=== PATIENT | male | born 1950 | race Caucasian/White ===

== ENCOUNTER 2016-07-31 10:44 | Emergency (ER) | payer OTHER, MEDICARE ==
[~2016-07-31] VITALS: Ht 185.4 cm; Wt 95.3 kg
[~2016-07-31 10:44] MED LIST: COLACE100 MG PO; COUMADIN 1 MG TA1 MG PO; COUMADIN 5 MG TA5 MG PO; COUMADIN 7.5 M7.5 MG PO; DULCOLAX10 MG PR; FAMOTIDINE20 MG PO; FLOMAX(MONOGRA0.4 MG PO; KEPPRA 500MG T500 MG PO; LACTULOSE10 GM/15 M PO; LEVOTHYROXIN0.025 MG PO; LEVOTHYROXIN0.125 MG PO; LISINOPRIL40 MG PO; MIRALAX17 GM PO; MULTIVITAMIN1 TAB PO; NORVASC 2.5 MG2.5 MG PO; PERCOCET 325 MG1 TA2 PO; RAPAFLO8 MG PO; SENNA CON/DOCUS1 TAB PO; SENNA8.6 M1 PO; SIMVASTATIN20 MG PO
--- NOTE | 2016-07-31 10:59 | ED GI/GU/ABDOMINAL COMPLAINT ---
History of Present Illness General Chief Complaint: Male Genitourinary Problems Stated Complaint: BIBA UTI Source: patient Exam Limitations: no limitations Vital Signs & Intake/Output Vital Signs & Intake/Output Vital Signs Date Time Temp Pulse Resp B/P Pulse O2 O2 Flow FiO2 Ox Delivery Rate 07/31 1101 96.2 78 18 127/87 98 Room Air Allergies Coded Allergies: MDX - Contrast Media, Gadolinium Re (Contrast Media, Gadolinium Related) ( UNKNOWN REACTION TO CATSCAN DYE 11/13/12) MDX - Contrast Media, Iodine Relate (Contrast Media, Iodine Related) (UNKNOWN REACTION TO CATSCAN DYE 11/13/12) MDX - Contrast Media, Iron Related (Contrast Media, Iron Related) (UNKNOWN REACTION TO CATSCAN DYE 11/13/12) MDX - Contrast Media, Perfluorocarb (Contrast Media, Perfluorocarbon Rel) ( UNKNOWN REACTION TO CATSCAN DYE 11/13/12) MDX - PCN (penicillin) (PCN (PENICILLIN)) (UNKNOWN 01/11/13) Uncoded Allergies: EYE OINT (W-10 DID NOT SPECIFY 03/23/14) Reconcile Medications Amlodipine (Norvasc 2.5 MG Tab) 2.5 MG TABLET 1 TAB PO DAILY HEART (Reported) Bisacodyl (Dulcolax) 10 MG SUP 1 SUPP MT PRN CONSTIPATION (Reported) Docusate Sodium (Colace) 100 MG CAPSULE 1 CAP PO DAILY STOOL SOFTENER ( Reported) Famotidine 20 MG TABLET 1 TAB PO DAILY GI (Reported) Lactulose 10 GRAM/15 ML SOLUTION 30 ML PO 1700 CONSTIPATION (Reported) Levetiracetam (Keppra 500MG Tab) 500 MG TABLET 500 MG PO BID seizures Levothyroxine Sodium 125 MCG TABLET 1 TAB PO DAILY hypothyroidism (Reported) Polyethylene Glycol 3350 (Miralax) 17 GRAM/DOSE POWDER 1 PAC PO DAILY CONSTIPATION Reason to Stop at ADM: NPO Sennosides (Senna) 8.6 MG TABLET 2 TAB PO QHS CONSTIPATION (Reported) Simvastatin (Zocor) 20 MG TAB 1 TAB PO QPM CHOLESTEROL (Reported) Tamsulosin Hydrochloride (Flomax) 0.4 MG CAP.ER.24H 2 CAP PO DAILY PROSTATE ( Reported) Warfarin Sodium (Coumadin) 1 MG TABLET 5.5 MG PO DAILY BLOOD THINNER ( Reported) 7.5 MG GIVEN 03/25/14 AT 1700 Triage Nurses Notes Reviewed? yes HPI: Patient presents for evaluation of urinary hesitancy and frequency and occasional incontinence, intermittently for the past 2 weeks. Patient has a known history of prostate enlargement but states he does not take medication for this. He denies any associated fever, cold symptoms or pain. He states that he feels the need to urinate but can't. Past History Travel History Traveled to [place] past 21 day No Medical History Any Pertinent Medical History? see below for history History of MRSA: No History of VRE: No History of CDIFF: No Surgical History Surgical History: non-contributory Psychosocial History Who do you live with Other (see notes) Services at Home Home Health Aide What is your primary language Panamanian Family History Family History, If Any: FATHER (PVD, Lung Cancer). . MOTHER (DM, Breast Ca, Stroke). . Hx Contributory? No Review of Systems Review of Systems Constitutional: Reports: no symptoms. EENTM: Reports: no symptoms. Respiratory: Reports: no symptoms. Cardiovascular: Reports: no symptoms. GI: Reports: no symptoms. Genitourinary: Reports: see HPI. Musculoskeletal: Reports: no symptoms. Skin: Reports: no symptoms. Neurological/Psychological: Reports: no symptoms. Hematologic/Endocrine: Reports: no symptoms. Immunologic/Allergic: Reports: no symptoms. All Other Systems: Reviewed and Negative Physical Exam Physical Exam Gastrointestinal: SEE BELOW Comments: Gen.: Well-nourished, well-developed, no acute respiratory distress. Head: Normocephalic, atraumatic. Eyes: Normal inspection bilaterally Ears: Normal inspection bilaterally Nose: Normal inspection Throat/mouth : Moist mucosa Neck: Supple, full range of motion, no goiter Heart: Regular rate and rhythm, no murmurs rubs or gallops Lungs: Clear to auscultation bilaterally with normal air entry Chest: Nontender Back: Normal range of motion Abdomen: Soft, nontender, nondistended, normal bowel sounds Extremities: Normal range of motion grossly, equal radial pulses, no cyanosis clubbing or edema Neurologic: Cranial nerves grossly intact, speech is clear Skin: warm and dry Psychiatric: Calm, cooperative, no apparent delusions or hallucinations Core Measures ACS in differential dx? No Severe Sepsis Present: No Septic Shock Present: No Progress Differential Diagnosis: UTI/pyelo, ENLARGED PROSTATE Plan of Care: Orders Procedure Date/time Status Straight Cath 07/31 1104 Active CULTURE,URINE 07/31 1104 Active URINALYSIS 07/31 1104 Complete Laboratory Tests 07/31/16 1340: Urine Color YEL, Urine Clarity CLEAR, Urine pH 6.0, Ur Specific Reeves 1.025, Urine Protein NEG, Urine Ketones NEG, Urine Nitrite NEG, Urine Bilirubin NEG, Urine Urobilinogen 0.2, Ur Leukocyte Esterase NEG, Ur Microscopic EXAM NOT REQUIRED, Urine Hemoglobin NEG, Urine Glucose NEG Microbiology 07/31 1340 URINE ROUT: Urine Culture - RECD Initial ED EKG: none Departure Departure Disposition: HOME OR SELF CARE Condition: Stable Clinical Impression Primary Impression: Bladder spasm Referrals: DEBBIE REEVES,CLEM (PCP/Family) Additional Instructions: Levsin as needed for bladder spasms or hesitancy/frequency of urination. Follow -up with Dr. Aguilar for reevaluation this week. Notify your primary care doctor of this emergency department visit and treatment plan. Return if any concerns or sudden worsening. Thank you for choosing the [facility] Emergency Department for your care. It was a pleasure to serve you today. Thomas Huitron M.D. [facility] Departure Forms: Customer Survey General Discharge Information Prescriptions: Current Visit Scripts Hyoscyamine (Levsin) 1-2 TAB PO Q6P PRN ABDOMINAL CRAMPS #20 TAB
[2016-07-31 11:01] VITALS: BP 127/87
[2016-07-31] MEDS ORDERED: LEVSIN0.125 M1 PO (14:21)
== END 2016-07-31 15:29 ==
LOC: ERH 10:44
DX: N32.89 Other specified disorders of bladder (principal); Z79.01 Long term (current) use of anticoagulants
CPT/HCPCS: 81003; 87086

== ENCOUNTER 2017-05-05 16:00 | Inpatient (IN) | payer OTHER, MEDICARE ==
[~2017-05-05] VITALS: Ht 185.4 cm; Wt 97.5 kg
[~2017-05-05 16:00] MED LIST changes: -COUMADIN 1 MG TA1 MG PO; +COUMADIN7.5 M1 PO; +FAMOTIDINE20 M1 PO; -FAMOTIDINE20 MG PO; -FLOMAX(MONOGRA0.4 MG PO; +FLOMAX0.4 M1 PO; +KEPPRA500 M1 PO; -LACTULOSE10 GM/15 M PO; +LACTULOSE10 GM/153 PO; -LEVOTHYROXIN0.125 MG PO; +LEVOTHYROXINE125 MCG PO; +LEVSIN0.125 M1 PO; +LEXAPRO20 M1 PO; +LINZESS290 MC1 PO; -NORVASC 2.5 MG2.5 MG PO; +NORVASC2.5 M1 PO; +PRINIVIL5 M1 PO; -SENNA8.6 M1 PO; +SENNA8.6 M3 PO; -SIMVASTATIN20 MG PO; +TYLENOL EXTRA500 M2 PO; +ZOCOR20 M1 PO
--- NOTE | 2017-05-05 16:05 | ED GI/GU/ABDOMINAL COMPLAINT ---
History of Present Illness General Chief Complaint: Dizziness Stated Complaint: BIBA FOR LIGHTHEADEDNESS Source: patient Exam Limitations: no limitations Vital Signs & Intake/Output Vital Signs & Intake/Output Vital Signs Date Time Temp Pulse Resp B/P B/P Pulse O2 O2 Flow FiO2 Mean Ox Delivery Rate 05/05 1931 97.8 62 18 101/62 99 Room Air 05/05 1803 Room Air 05/05 180 97.5 68 18 104/58 99 Room Air 05/05 1705 67 18 94/40 100 Nasal 2.0L Cannula 05/05 1623 97.7 64 20 81/54 93 Nasal 2.0L Cannula Triage Nurses Notes Reviewed? 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 who currently has home visiting nurses and walks with a walker patient also has a history of hypertension and has been evaluated on multiple occasions at [place] emergency room for concerns of diarrhea and hypotension, patient presents today with 2 day history of multiple episodes of loose watery diarrhea production in which she states that today he was sitting on the tub when he slipped and lost his balance and slid into the tub however no water was in the tub patient was unable to get out of the tub due to his CVA deficit in which she called [facility] arrived on scene patient requested to be transferred to emergency room for persistent diarrhea he states that in transport he had one episode of vomiting nonbloody nonbilious emesis Patient denies any fever chills chest pain shortness of breath cough abdominal pain or any traumatic injury from the slip to the tub today. No recent antibiotics no blood no melena noted from bowel movements Patient can tolerate by mouth today prior to arrival patient denies any head strike from the fall and slipped in tub (Judith REINA,Nilson) Allergies Coded Allergies: Iodinated Contrast- Oral and IV Dye (UNKNOWN 11/30/16) Penicillins (UNKNOWN 11/30/16) bacitracin (PER PT EYE OINTMENT -DOES NOT REMEMBER REACTION 05/05/17) Reconcile Medications Amlodipine (Norvasc) 2.5 MG TABLET 1 TAB PO DAILY HEART (Reported) Escitalopram Oxalate (Lexapro) 20 MG TABLET 1 TAB PO DAILY DEPRESSION ( Reported) Famotidine 20 MG TABLET 1 TAB PO DAILY GI (Reported) Levetiracetam (Keppra) 500 MG TABLET 1 TAB PO BID SEIZURES (Reported) Levothyroxine Sodium 125 MCG TABLET 1 TAB PO DAILY AC THYROID (Reported) Linaclotide (Linzess) 290 MCG CAPSULE 1 CAP PO DAILY BOWEL (Reported) Lisinopril (Prinivil) 5 MG TABLET 1 TAB PO DAILY BP (Reported) Multiple Vitamin (Multivitamins) 1 EACH TABLET 1 TAB PO DAILY SUPPLEMENT ( Reported) Polyethylene Glycol 3350 17 GRAM/DOSE POWDER 17 GM PO PRN GI (Reported) Sennosides (Senna) 8.6 MG TABLET 2 TAB PO BID GI (Reported) Simvastatin (Zocor*) 20 MG TABLET 1 TAB PO QPM CHOLESTEROL (Reported) Tamsulosin HCl (Flomax) 0.4 MG CAP.ER.24H 2 CAP PO DAILY PROSTATE (Reported) Warfarin Sodium (Coumadin) 7.5 MG TABLET 1 TAB PO 1700 BLOOD THINNER ( Reported) (Elana REEVES,Thomas Salcido) Past History Travel History Traveled to [place] past 21 day No Medical History Any Pertinent Medical History? see below for history Neurological: seizure, CVA-L SIDED PARLAYSIS EENT: NONE Cardiovascular: hypertension, hyperlipidemia Respiratory: NONE Gastrointestinal: NONE Hepatic: NONE Renal: NONE Musculoskeletal: NONE Psychiatric: NONE Endocrine: hypothyroidism Blood Disorders: NONE Cancer(s): NONE History of MRSA: No History of VRE: No History of CDIFF: No Surgical History Surgical History: non-contributory Psychosocial History Who do you live with Other (see notes) Services at Home Home Health Aide What is your primary language Lebanese Family History Family History, If Any: FATHER (PVD, Lung Cancer). . MOTHER (DM, Breast Ca, Stroke). . Hx Contributory? No (Nilson Womack) Review of Systems Review of Systems Constitutional: Reports: no symptoms. EENTM: Reports: no symptoms. Respiratory: Reports: no symptoms. Cardiovascular: Reports: no symptoms. GI: Reports: see HPI, diarrhea, nausea. Genitourinary: Reports: no symptoms. Musculoskeletal: Reports: no symptoms. Skin: Reports: no symptoms. Neurological/Psychological: Reports: no symptoms. Hematologic/Endocrine: Reports: no symptoms. Immunologic/Allergic: Reports: no symptoms. All Other Systems: Reviewed and Negative (Nilson Womack) Physical Exam Physical Exam General Appearance: no apparent distress, alert, comfortable Head: atraumatic Eyes: Bilateral: normal appearance, PERRL. Ears, Nose, Throat, Mouth: hearing grossly normal Neck: normal inspection Respiratory: normal breath sounds, chest non-tender, no respiratory distress Cardiovascular: regular rate/rhythm Peripheral Pulses: 2+ radial (R) Gastrointestinal: normal bowel sounds, soft, tenderness, GENERALIZED TENDERNESS Rectal: heme negative stool Extremities: LEFT GENERAL SHOULDER PAIN UNABLE TO MOVE ELBOW S/P STROKE HX Neurologic/Psych: no motor/sensory deficits, awake Skin: intact, normal color Core Measures ACS in differential dx? No Sepsis Present: No Sepsis Focused Exam Completed? No (Nilson Womack) Progress Differential Diagnosis: AAA, AMI, appendicitis, biliary colic, bowel obstruction , colon cancer, cholecystitis, diverticulitis, epididymitis, gastritis, hepatitis, hernia, hemorrhoids, ischemic bowel, inflamm bowel dis, orchitis, pancreatitis, prostatitis, peptic ulcer, PUD/GERD, perforated viscous, pyelonephritis, SBO, testicular torsion, ureterolithiasis, urinary retention, urethritis, UTI/pyelo Plan of Care: Orders Procedure Date/time Status Heart Healthy Diet 05/06 B Active Misc Message 05/05 2025 Active ED Holding Orders 05/05 2025 Active Admit to inpatient 05/05 2025 Active Vital Signs 05/05 2025 Active Code Status 05/05 2025 Active LACTIC ACID 05/05 1915 Complete Telemetry/Correctional Lieutenant 05/05 1632 Active ARTERIAL BLOOD GAS (GEN) 05/05 1628 Active BLOOD CULTURE 05/05 1626 Active CULTURE,STOOL 05/05 1625 Active C.DIFFICILE 05/05 1625 Active TROPONIN LEVEL 05/05 1615 Complete MAGNESIUM 05/05 1615 Complete LIPASE 05/05 1615 Complete LACTIC ACID 05/05 1615 Complete COMPREHENSIVE METABOLIC PANEL 05/05 1615 Complete CBC WITHOUT DIFFERENTIAL 05/05 1615 Complete AMYLASE 05/05 1615 Complete EKG 05/05 1615 Active Current Medications Sig/Miladis Start time Last Medication Dose Stop Time Status Admin Sodium Chloride 1,000 ML Q6H 05/05 2000 AC 05/05 (Normal Saline 0.9%) 203 Laboratory Tests 05/05/17 1929: Lactic Acid 1.4 05/05/17 1640: pH 7.35, pCO2 37, pO2 75 L, HCO3 20 L, ABG O2 Sat (Measured) 92.0 L, P-50 ( Temp Corrected) N, Carboxyhemoglobin 0.3 L, O2 Concentration % R/A, Temperature 97.7, Phlebotomy Draw Site RIGHT RADIAL 05/05/17 1624: Magnesium Cancelled 05/05/17 1615: Anion Gap 16, Estimated GFR 38 L, BUN/Creatinine Ratio 10.0, Glucose 141 H, Lactic Acid 2.9 H, Calcium 9.2, Magnesium 2.0, Total Bilirubin 1.4 H, AST 17, ALT 33, Alkaline Phosphatase 70, Troponin I < 0.01, Total Protein 7.1, Albumin 4.1, Globulin 3.0, Albumin/Globulin Ratio 1.4, Amylase 39, Lipase 92, CBC w Diff NO MAN DIFF REQ, RBC 4.20 L, MCV 90.4, MCH 30.4, RDW 13.9, MPV 7.4, Gran % 67.2 , Lymphocytes % 22.3, Monocytes % 7.8, Eosinophils % 2.2, Basophils % 0.5, Absolute Granulocytes 4.2, Absolute Lymphocytes 1.4, Absolute Monocytes 0.5, Absolute Eosinophils 0.1, Absolute Basophils 0, PUBS MCHC 33.7 Microbiology 05/05 1725 BLOOD: Blood Culture - RECD 05/05 1715 BLOOD: Blood Culture - RECD 05/05 1625 STOOL: Clostridium difficile Toxin A & B - ORD 05/05 1624 STOOL: Stool Culture - ORD Patient on initial examination has tenderness upon palpation of abdomen CT scan and blood work will be in order It is noted that patient last presentation to emergency room the patient was hypotensive and had symptoms of diarrhea however the last provider indicated that there was suspicion of overdose of his antihypertensive medications Patient was given IV fluid resuscitation for concerns of hypotension on arrival patient had negative fecal occult blood test Normal sinus rhythm of EKG Oxygen supplementation was administered however patient does note to have ABG of 92% saturation of oxygen CT scan was resulted showing no acute abdominal process. Patient will be by mouth challenged. Patient was able to tolerate by mouth intake Nursing staff tried to ambulate and weight-bear patient however he required significant assistance from getting up out of bed to a sitting position patient has had significant diminished baseline function due to his presentation of dehydration and diarrhea and will require admission and most likely a short-term rehabilitation Diagnostic Imaging: Viewed by Me: CT Scan. Radiology Impression: no acute abnormality CXR Impression: no acute abnormality, no infiltrates Initial ED EKG: normal QRS complex, normal sinus rhythm, 68 BPM Comments: PATIENT: NUBIA ELDRIDGE PRESENT AGE: 67 PATIENT ACCOUNT NO: [id number] : 50 LOCATION: [facility] ([place] ORDERING PHYSICIAN: Nilson REINA SERVICE DATE: 05/05/17 EXAM TYPE: RAD - XRY-CHEST XRAY, TWO VIEWS EXAMINATION: XR CHEST CLINICAL INFORMATION: Fall, left shoulder pain COMPARISON: 03/19/2017 TECHNIQUE: 2 views of the chest were obtained. FINDINGS: The exam is limited by lordotic positioning. The cardiomediastinal contours appear grossly similar to previous examinations. The lung volumes are low. No consolidation or effusion. Multilevel degenerative changes of the visualized portions of the thoracic and lumbar spine are redemonstrated. Visualized osseous structures appear grossly intact. IMPRESSION: Low lung volumes. Limited exam. No convincing acute cardiopulmonary process. DICTATED BY: Salma Devine MD DATE/TIME DICTATED:05/05/171824 CONSTRUCTION RIGGER:SHIRA PATIENT: NUBIA ELDRIDGE PRESENT AGE: 67 PATIENT ACCOUNT NO: [id number] : 50 LOCATION: [facility] ([place] ORDERING PHYSICIAN: Nilson REINA SERVICE DATE: 05/05/17 EXAM TYPE: RAD - XRY-SHOULDER COMPLETE-LEFT EXAMINATION: XR SHOULDER, LEFT CLINICAL INFORMATION: Pain status-post fall. COMPARISON: None. TECHNIQUE: AP external rotation, Grashey, scapular Y, and axillary views of the left shoulder. FINDINGS: There is generalized bony demineralization. The glenohumeral joint is intact, with mild superior subluxation of the humerus relative to the glenoid. The acromioclavicular and coracoclavicular intervals are normal. No fracture or dislocation is seen. The soft tissue planes are unremarkable. There is no foreign body. No left pneumothorax is seen. There is mild left base linear atelectasis. IMPRESSION: 1. No acute fracture or dislocation is seen. 2. There is mild superior subluxation of the left glenohumeral joint. 3. There is generalized bony demineralization. DICTATED BY: Leonel Caro MD DATE/TIME DICTATED:05/05/171824 PATIENT: NUBIA ELDRIDGE PRESENT AGE: 67 PATIENT ACCOUNT NO: [id number] : 50 LOCATION: [facility] ([place] ORDERING PHYSICIAN: Nilson REINA SERVICE DATE: 05/05/17 EXAM TYPE: CAT - CT ABD & PELVIS W/O IV CONTRAS EXAMINATION: CT ABDOMEN AND PELVIS WITHOUT CONTRAST CLINICAL INFORMATION: Hypotension, nausea, vomiting, abdominal pain COMPARISON: 03/19/2017 TECHNIQUE: Multidetector volumetric imaging was performed from the superior aspect of the liver through the pubic symphysis. Sagittal and coronal reformatted images were obtained on the technologist's workstation. DLP: 1325 mGy-cm FINDINGS: LUNG BASES: The visualized lung bases are unremarkable. The left upper quadrant is excluded from the [id number]. The stomach and splenic flexure are partially imaged. LIVER, GALLBLADDER, AND BILIARY TREE: There are innumerable hypoattenuating lesions scattered throughout the liver. The largest is located in the left lobe, segment IV, measuring up to 1.6 cm. Some of these hypoattenuating lesions are too small to characterize but statistically likely represent cysts. No intrahepatic biliary dilatation. There is at least one partially calcified gallstone is present. The gallbladder is not distended. No wall edema or pericholecystic fluid. PANCREAS: Mild fatty atrophy of the pancreas. SPLEEN: Unremarkable. ADRENAL GLANDS: Unremarkable. KIDNEYS AND URETERS: Mild bilateral perinephric stranding. No hydronephrosis. BLADDER: Grossly unremarkable. GASTROINTESTINAL TRACT: The small and large bowel are unremarkable. The appendix is unremarkable. ABDOMINAL WALL: No significant hernia is appreciated. LYMPH NODES: Normal. VASCULAR: IVC filter in place.. PELVIC VISCERA: Prostate and seminal vesicles are unremarkable. OSSEOUS STRUCTURES: Left femoral nail. Remote left inferior pubic ramus fracture. Superior endplate compression deformity of the L1 vertebral body with approximately 30% loss of vertebral body height. Mild superior endplate deformity of the L2 vertebral body. These are stable findings compared to 03/19/2017. IMPRESSION: 1. No acute intra-abdominal or pelvic findings to explain clinical presentation. Slightly limited examination of the left upper quadrant. 2. Stable appearance of hepatic cysts. 3. Cholelithiasis without CT evidence for acute cholecystitis. 4. IVC filter in place. DICTATED BY: Salma Devine MD DATE/TIME DICTATED:05/05/17 (Nilson Womack) Comments: 05/05/2017 9:00:38 PM patient without complaint at this time. Awaiting transfer to General medicine floor. (Elana REEVES,Thomas Salcido) Departure Departure Disposition: STILL A PATIENT Condition: Stable Clinical Impression Primary Impression: Dehydration Secondary Impressions: LALO (acute kidney injury), Diarrhea, Hypotension, Lactic acid acidosis, Weakness Referrals: Vasile Frausto MD (PCP/Family) Departure Forms: Customer Survey General Discharge Information Admission Note Spoke With: oJnny Murray MD Documentation of Exam: Documentation of any treatments & extenuating circumstances including Concerns Regarding Discharge (functional status, medication knowledge or non-compliance, living conditions, etc.) that warrant an admission rather than observation: Discussed patient with Dr. Murray who is covering for Dr. Frausto in which she will accept patient under general medicine for concerns of dehydration and weakness and inability to ambulate in which patient requires IV fluid hydration repeat labs physical therapy consultation and possible short-term rehabilitation dietary consultation in which outpatient treatment currently at this time would be medically harmful due to significant fall risk AND WEAKNESS ] (Nilson Womack) PA/EQUIPMENT OPERATOR Co-Sign Statement Statement: ED Attending supervision documentation- [x] I saw and evaluated the patient. I have also reviewed all the pertinent lab results and diagnostic results. I agree with the findings and the plan of care as documented in the PA's/EQUIPMENT OPERATOR's documentation. pt presented for evaluation of dizziness. mild facial droop and somewhat slow speech, but otherwise no significant exam findings. [] I have reviewed the ED Record and agree with the PA's/EQUIPMENT OPERATOR's documentation. [] Additions or exceptions (if any) to the PAs/EQUIPMENT OPERATOR's note and plan are summarized below: [] (Elana REEVES,Thomas Salcido)
[2017-05-05 16:38] LABS: ABSOLUTE BASOPHIL COUNT 0 /CUMM (0.0-0.2); ABSOLUTE EOSINOPHIL COUNT 0.1 /CUMM (0.0-0.7); ABSOLUTE GRANULOCYTE CT 4.2 /CUMM (1.4-6.5); ABSOLUTE LYMPH COUNT 1.4 /CUMM (1.2-3.4); ABSOLUTE MONOCYTE COUNT 0.5 /CUMM (0.10-0.60); BASOPHIL % 0.5 % (0.0-2.0); EOSINOPHIL % 2.2 % (0-5); GRANULOCYTE % 67.2 % (42.2-75.2); MEAN CORPUSCULAR HGB 30.4 PG (27.0-31.0); MEAN CORPUSCULAR HGB CONC 33.7 G/DL (33.0-37.0); MEAN CORPUSCULAR VOLUME 90.4 FL (80.0-94.0); MEAN PLATELET VOLUME 7.4 FL (7.4-10.4); PLATELET COUNT 163 /CUMM (130-400); RBC DISTRIBUTION WIDTH 13.9 % (11.5-14.5); WHITE BLOOD CELL COUNT 6.3 /CUMM (4.8-10.8)
--- NOTE | 2017-05-05 17:24 | CT SCAN REPORT ---
EXAMINATION: CT ABDOMEN AND PELVIS WITHOUT CONTRAST CLINICAL INFORMATION: Hypotension, nausea, vomiting, abdominal pain COMPARISON: 03/19/2017 TECHNIQUE: Multidetector volumetric imaging was performed from the superior aspect of the liver through the pubic symphysis. Sagittal and coronal reformatted images were obtained on the technologist's workstation. DLP: 1325 mGy-cm FINDINGS: LUNG BASES: The visualized lung bases are unremarkable. The left upper quadrant is excluded from the [id number]. The stomach and splenic flexure are partially imaged. LIVER, GALLBLADDER, AND BILIARY TREE: There are innumerable hypoattenuating lesions scattered throughout the liver. The largest is located in the left lobe, segment IV, measuring up to 1.6 cm. Some of these hypoattenuating lesions are too small to characterize but statistically likely represent cysts. No intrahepatic biliary dilatation. There is at least one partially calcified gallstone is present. The gallbladder is not distended. No wall edema or pericholecystic fluid. PANCREAS: Mild fatty atrophy of the pancreas. SPLEEN: Unremarkable. ADRENAL GLANDS: Unremarkable. KIDNEYS AND URETERS: Mild bilateral perinephric stranding. No hydronephrosis. BLADDER: Grossly unremarkable. GASTROINTESTINAL TRACT: The small and large bowel are unremarkable. The appendix is unremarkable. ABDOMINAL WALL: No significant hernia is appreciated. LYMPH NODES: Normal. VASCULAR: IVC filter in place.. PELVIC VISCERA: Prostate and seminal vesicles are unremarkable. OSSEOUS STRUCTURES: Left femoral nail. Remote left inferior pubic ramus fracture. Superior endplate compression deformity of the L1 vertebral body with approximately 30% loss of vertebral body height. Mild superior endplate deformity of the L2 vertebral body. These are stable findings compared to 03/19/2017. IMPRESSION: 1. No acute intra-abdominal or pelvic findings to explain clinical presentation. Slightly limited examination of the left upper quadrant. 2. Stable appearance of hepatic cysts. 3. Cholelithiasis without CT evidence for acute cholecystitis. 4. IVC filter in place.
--- NOTE | 2017-05-05 18:31 | RADIOLOGY REPORT ---
EXAMINATION: XR CHEST CLINICAL INFORMATION: Fall, left shoulder pain COMPARISON: 03/19/2017 TECHNIQUE: 2 views of the chest were obtained. FINDINGS: The exam is limited by lordotic positioning. The cardiomediastinal contours appear grossly similar to previous examinations. The lung volumes are low. No consolidation or effusion. Multilevel degenerative changes of the visualized portions of the thoracic and lumbar spine are redemonstrated. Visualized osseous structures appear grossly intact. IMPRESSION: Low lung volumes. Limited exam. No convincing acute cardiopulmonary process.
--- NOTE | 2017-05-05 18:31 | RADIOLOGY REPORT ---
EXAMINATION: XR SHOULDER, LEFT CLINICAL INFORMATION: Pain status-post fall. COMPARISON: None. TECHNIQUE: AP external rotation, Grashey, scapular Y, and axillary views of the left shoulder. FINDINGS: There is generalized bony demineralization. The glenohumeral joint is intact, with mild superior subluxation of the humerus relative to the glenoid. The acromioclavicular and coracoclavicular intervals are normal. No fracture or dislocation is seen. The soft tissue planes are unremarkable. There is no foreign body. No left pneumothorax is seen. There is mild left base linear atelectasis. IMPRESSION: 1. No acute fracture or dislocation is seen. 2. There is mild superior subluxation of the left glenohumeral joint. 3. There is generalized bony demineralization.
[2017-05-05] MEDS ORDERED: POLYETHYLENE G255 GM PO (19:49)
[2017-05-05] MEDS ORDERED: MULTIVITAMINS1 EAC9 PO (19:49)
[2017-05-05] MEDS ORDERED: SENNA8.6 M3 PO (19:50)
[2017-05-06 01:30] VITALS: BP 144/92
--- NOTE | 2017-05-06 01:43 | History & Physical ---
Jj REEVES,[facility] 05/06/17 0142: General Information and HPI MD Statement: I have seen and personally examined NUBIA PAGAN and documented this H&P. The patient is a 67 year old M who presented with a patient stated chief complaint of [loose watery stools and vomiting]. Source of Information: patient Exam Limitations: no limitations History of Present Illness: Mr. 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 According to the patient, he started feeling very weak and lethargic since yesterday, and today after having a bowel movement(loose watery) felt very lightheaded and dizzy and slipped in his bath tub. Denies hitting his head or loss of consciousness. He also had one episode of nonbloody vomiting en route to the hospital. Also endorses one episode of chest discomfort 7 x 10 in intensity, which stated for couple of hours and resolved on its own, without any radiation or aggravating or relieving factors, any associated nausea, vomiting, diaphoresis, shortness of breath or palpitations. Patient had a sore throat and dry cough which started today, states his home health aide person was recently sick with pneumonia. No fever or chills but patient has not had his flu shot this year. Allergies/Medications Allergies: Coded Allergies: Iodinated Contrast- Oral and IV Dye (UNKNOWN 11/30/16) Penicillins (UNKNOWN 11/30/16) bacitracin (PER PT EYE OINTMENT -DOES NOT REMEMBER REACTION 05/05/17) Home Med list Amlodipine (Norvasc) 2.5 MG TABLET 1 TAB PO DAILY HEART (Reported) Escitalopram Oxalate (Lexapro) 20 MG TABLET 1 TAB PO DAILY DEPRESSION ( Reported) Famotidine 20 MG TABLET 1 TAB PO DAILY GI (Reported) Levetiracetam (Keppra) 500 MG TABLET 1 TAB PO BID SEIZURES (Reported) Levothyroxine Sodium 125 MCG TABLET 1 TAB PO DAILY AC THYROID (Reported) Linaclotide (Linzess) 290 MCG CAPSULE 1 CAP PO DAILY BOWEL (Reported) Lisinopril (Prinivil) 5 MG TABLET 1 TAB PO DAILY BP (Reported) Multiple Vitamin (Multivitamins) 1 EACH TABLET 1 TAB PO DAILY SUPPLEMENT ( Reported) Polyethylene Glycol 3350 17 GRAM/DOSE POWDER 17 GM PO PRN GI (Reported) Sennosides (Senna) 8.6 MG TABLET 2 TAB PO BID GI (Reported) Simvastatin (Zocor*) 20 MG TABLET 1 TAB PO QPM CHOLESTEROL (Reported) Tamsulosin HCl (Flomax) 0.4 MG CAP.ER.24H 2 CAP PO DAILY PROSTATE (Reported) Warfarin Sodium (Coumadin) 7.5 MG TABLET 1 TAB PO 1700 BLOOD THINNER ( Reported) Past History Travel History Traveled to [place] past 21 day No Medical History Neurological: seizure, CVA-L SIDED PARLAYSIS EENT: NONE Cardiovascular: hypertension, hyperlipidemia, PVD Respiratory: NONE Gastrointestinal: NONE Hepatic: NONE Renal: NONE Musculoskeletal: NONE Psychiatric: NONE Endocrine: hypothyroidism Blood Disorders: NONE Cancer(s): NONE History of MRSA: No History of VRE: No History of CDIFF: No Surgical History Surgical History: none Past Family/Social History Family History Relations & Conditions if any FATHER (PVD, Lung Cancer). . MOTHER (DM, Breast Ca, Stroke). . Psychosocial History Services at Home: Home Health Aide Smoking Status: Never Smoked ETOH Use: denies use Illicit Drug Use: denies illicit drug use Functional Ability Ambulation: walker Review of Systems Review of Systems Constitutional: Reports: malaise, weakness. EENTM: Reports: no symptoms. Cardiovascular: Reports: chest pain. Respiratory: Reports: no symptoms. GI: Reports: diarrhea, vomiting. Genitourinary: Reports: no symptoms. Musculoskeletal: Reports: no symptoms. Skin: Reports: no symptoms. Neurological/Psychological: Reports: no symptoms. Hematologic/Endocrine: Reports: no symptoms. Immunologic/Allergic: Reports: no symptoms. All Other Systems: Reviewed and Negative Exam & Diagnostic Data Last 24 Hrs of Vital Signs/I&O Vital Signs Date Time Temp Pulse Resp B/P B/P Pulse O2 O2 Flow FiO2 Mean Ox Delivery Rate 05/06 0130 97.2 69 20 144/92 95 05/05 2222 97.7 70 18 114/69 97 Room Air 05/05 1931 97.8 62 18 101/62 99 Room Air 05/05 1803 Room Air 05/05 180 97.5 68 18 104/58 99 Room Air 05/05 1705 67 18 94/40 100 Nasal 2.0L Cannula 05/05 1623 97.7 64 20 81/54 93 Nasal 2.0L Cannula Intake & Output 05/06 0800 05/06 0000 05/05 1600 Intake Total 3240 Output Total 100 Balance 3140 Intake, IV 3000 Intake, Oral 240 Output, Urine 100 Patient 215 lb Weight Weight Reported by Patient Measurement Method Physical Exam General Appearance Alert, Oriented X3, Cooperative, No Acute Distress Skin No Rashes, No Breakdown HEENT Atraumatic, PERRLA, EOMI Neck Supple, No JVD, No thryomegaly Cardiovascular Regular Rate, Normal S1, Normal S2 Lungs Clear to Auscultation Abdomen Normal Bowel Sounds, Soft, No Tenderness Neurological Sensation Intact, Strenght 1/5 in LUE, resting tremor in RUE Extremities No Clubbing, Normal Pulses, Chronic venous stasis chenges bilaterally Last 24 Hrs of Labs/Santosh: Laboratory Tests 05/06/17 0210: Troponin I < 0.01, PT 53.6 *H, INR 5.19 *H 05/05/17 1929: Lactic Acid 1.4 05/05/17 1640: pH 7.35, pCO2 37, pO2 75 L, HCO3 20 L, ABG O2 Sat (Measured) 92.0 L, P-50 ( Temp Corrected) N, Carboxyhemoglobin 0.3 L, O2 Concentration % R/A, Temperature 97.7, Phlebotomy Draw Site RIGHT RADIAL 05/05/17 1624: Magnesium Cancelled 05/05/17 1615: Anion Gap 16, Estimated GFR 38 L, BUN/Creatinine Ratio 10.0, Glucose 141 H, Lactic Acid 2.9 H, Calcium 9.2, Magnesium 2.0, Total Bilirubin 1.4 H, Direct Bilirubin 0.4, AST 17, ALT 33, Alkaline Phosphatase 70, Troponin I < 0.01, Total Protein 7.1, Albumin 4.1, Globulin 3.0, Albumin/Globulin Ratio 1.4, Amylase 39, Lipase 92, CBC w Diff NO MAN DIFF REQ, RBC 4.20 L, MCV 90.4, MCH 30.4, RDW 13.9 , MPV 7.4, Gran % 67.2, Lymphocytes % 22.3, Monocytes % 7.8, Eosinophils % 2.2, Basophils % 0.5, Absolute Granulocytes 4.2, Absolute Lymphocytes 1.4, Absolute Monocytes 0.5, Absolute Eosinophils 0.1, Absolute Basophils 0, PUBS MCHC 33.7 Microbiology 05/05 1725 BLOOD: Blood Culture - RECD 05/05 1715 BLOOD: Blood Culture - RECD 05/05 1625 STOOL: Clostridium difficile Toxin A & B - ORD 05/05 1624 STOOL: Stool Culture - ORD Diagnostic Data CXR Results IMPRESSION: Low lung volumes. Limited exam. No convincing acute cardiopulmonary process. Other Results CT ABD & PELVIS W/O IV CONTRAST IMPRESSION: 1. No acute intra-abdominal or pelvic findings to explain clinical presentation. Slightly limited examination of the left upper quadrant. 2. Stable appearance of hepatic cysts. 3. Cholelithiasis without CT evidence for acute cholecystitis. 4. IVC filter in place. XRY-SHOULDER COMPLETE-LEFT IMPRESSION: 1. No acute fracture or dislocation is seen. 2. There is mild superior subluxation of the left glenohumeral joint. 3. There is generalized bony demineralization. Assessment/Plan Assessment: Mr. 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 A/P; 1. Acute kidney injury; likely secondary to dehydration in the setting of loose watery stools. - Will admit the patient to general medicine floor - Start the patient on IV fluids - Monitor vitals( patient was hypotensive on arrival) - Repeat labs in a.m. - Lactic acid trended down after receiving IV fluids. - Follow-up C. difficile, blood and stool cultures. - PT evaluation; would probably need STR placement on discharge.(Nursing staff in the ED tried to ambulate and weight-bear patient however he required significant assistance from getting up out of bed to a sitting position, patient has had significant diminished baseline function). 2. One episode of chest discomfort - Initial set of troponins negative - We'll repeat probes and EKG 2 to rule out ACS 3. History of CVA - We'll continue Coumadin. - Daily INR and dose Coumadin accordingly. 4. History of seizures - Continue Keppra. 5. History of hypertension; - We will hold antihypertensives for now in the setting of hypotension. - Restart tomorrow depending on blood pressure. 6. History of GERD, depression, hyperlipidemia and hypothyroidism - We'll continue famotidine, Pepcid, Lexapro, simvastatin and levothyroxine. Core Measures/Misc (01/07) Acute Coronary Syndrome ACS Diagnosis: No Congestive Heart Failure Congestive Heart Failure Diagnosis No Cerebrovascular Accident CVA/TIA Diagnosis: No VTE (View Protocol) VTE Risk Factors Age>40 No Mechanical VTE Prophylaxis d/t N/A MechProphylax Ordered No VTE Pharm Prophylaxis d/t NA PharmProphylax ordered Sepsis (View protocol) Sepsis Present: No Blanca Espinoza 05/06/17 0144: Resident Review Statement Resident Statement: examined this patient, discussed with international travel consultant Other Findings: Patient is a 67-year-old gentleman with a past medical history significant for CVA 2007 with residual left sided weakness on Coumadin, history of seizures on Keppra, history of hypertension and hyperlipidemia, history of hypothyroidism, GERD presented to the ED for evaluation of generalized weakness/malaise. As per patient he was in his usual state of health until yesterday when he started feeling very weak and lethargic. Also had an episode of substernal pressure-like dull chest discomfort today without any shortness of breath palpitations,that improved itself. Later after a bowel movement, patient felt very dizzy/lightheaded and slipped, fell in the bathroom. Denied any head traumas. EMS was called, on his way to the hospital patient had one episode of nonbilious nonbloody vomiting. Patient denied any recent infections no fever or chills, had 2 episodes of loose watery stools today. No recent sick contacts/recent travels. In the ER patient was found to be hypoxic saturating around 85% on room air and was initially put on 2 L nasal cannula, that was tapered off. patient was also incontinent of stool upon arrival(documented by the ED nurse). On examination: General Appearance:alert oriented 3, not in acute distress Skin: Grossly normal HEENT: PERRLA Neck: Supple, No JVD Cardiovascular: Regular Rate, Normal S1, Normal S2. Lungs: lungs clear to exam b/l. Abdominal exam : Denies abdominal tenderness without any rebound, positive bowel sounds. Neurological: chronic skin changes due to peripheral vascular disease. Vitals on admission to measure 97.7, pulse: 64, resp: 20, blood pressure 81/84 initially improved to 101/62, currently on room air. Pertinent labs on admission Normal WBC count H&H low but stable elevated creatinine 1.8 from baseline 1.2 elevated lactic acid level:2.9 total bilirubin 1.4, with normal LFTs ABG normal ,first troponin negative without any significant EKG changes CT abdomen and pelvis No acute intra-abdominal or pelvic findings to explain clinical presentation. Slightly limited examination of the left upper quadrant. Stable appearance of hepatic cysts. Cholelithiasis without CT evidence for acute cholecystitis.. IVC filter in place. Assessment and plan Patient is a 67-year-old gentleman with a past medical history significant for CVA 2007 with residual left sided weakness on Coumadin, history of seizures on Keppra, history of hypertension and hyperlipidemia, history of hypothyroidism, GERD presented to the ED for evaluation of generalized weakness/malaise. Problem list Acute kidney injury likely due to dehydration( in the setting of diarrhea )with hypotension Dizziness /lightheadedness(rule out ACS). Slight hyperbilirubinemia significant for CVA 2007 with residual left sided weakness on Coumadin History of seizures History of hypertension and hyperlipidemia PLAN: Acute kidney injury likely due to dehydration( in the setting of diarrhea )with hypotension * Admit the patient GenMed floor patient already received 3 L bolus of normal saline in the ED, will continue with maintenance fluids at the rate of 100 mL per hr * Careful with the fluids no documented cardiac history, echo:2013, probably showed normal EF(Very technically difficult study) * repeat BEP. * Lactic acidosis likely due to dehydration, improved after aggressive IV hydration. Monitor vitals patient spikes fever and obtain cultures. * Avoid any nephrotoxic agents. * Hold antihypertensives for now. * Watch for any hemodynamic instability. * Dizziness /lightheadedness with one episode of substernal chest discomfort (rule out ACS) * Serial troponin EKG to rule out any underlying ACS. significant for CVA 2007 with residual left sided weakness on Coumadin * Check INR and dose Coumadin accordingly. History of seizures * Continue Keppra 500 mg twice a day * patient was apparently incontinent at the time of arrival ,maintain seizures and aspiration precautions * History of hypertension and hyperlipidemia * Hold antihypertensives in the setting of hypotension. Mild to moderate pain controlled with Tylenol DVT prophylaxis with Coumadin Patient is full code Terri REEVES,[facility] 05/06/17 1321: Assessment/Plan As Ranked By This Provider Problem List: 1. CVA Attending MD Review Statement Attending Statement Attending MD Statement: examined this patient, discuss w/resident/PA/WIRE WINDING MACHINE OPERATOR, agreed w/resident/PA/WIRE WINDING MACHINE OPERATOR, discussed with family, reviewed EMR data (avail), discussed with nursing, discussed with case mgmt, reviewed images, amended to note Attending Assessment/Plan: Seen and examined independently Patient is a 67-year-old gentleman with a past medical history significant for CVA 2007 with residual left sided weakness on Coumadin, history of seizures on Keppra, history of hypertension and hyperlipidemia, history of hypothyroidism, GERD presented to the ED for evaluation of generalized weakness/malaise with vomiting and diarrhea and hypotension Problem list Acute kidney injury likely due to dehydration( in the setting of diarrhea )with hypotension Vom iting and diarrhea due to prob gastroenteritis ( neg abd ct) Dizziness /lightheadedness unlikely acs Slight hyperbilirubinemia, chronic and now stable significant for CVA 2007 with residual left sided weakness on Coumadin History of seizures History of hypertension and hyperlipidemia Previous ivc filter Recent fall with djd of shoulder REC Admit IVF Stool for cdiff, culture, O and p Cont current meds Change ivf to d5 0.45 ns at 50 cc Watch for pulm edema KEep hob up Cont other meds Will follow Dispo plans in am if stable
[2017-05-06 02:58] LABS: PT 53.6 SEC (9.4-12.5)
[2017-05-06 08:08] VITALS: BP 150/96
[2017-05-06 08:33] LABS: ABSOLUTE BASOPHIL COUNT 0 /CUMM (0.0-0.2); ABSOLUTE EOSINOPHIL COUNT 0.1 /CUMM (0.0-0.7); ABSOLUTE GRANULOCYTE CT 3.4 /CUMM (1.4-6.5); ABSOLUTE LYMPH COUNT 0.9 /CUMM (1.2-3.4); ABSOLUTE MONOCYTE COUNT 0.4 /CUMM (0.10-0.60); BASOPHIL % 0.3 % (0.0-2.0); EOSINOPHIL % 2.7 % (0-5); GRANULOCYTE % 71.2 % (42.2-75.2); MEAN CORPUSCULAR HGB CONC 34.3 G/DL (33.0-37.0); MEAN CORPUSCULAR VOLUME 90.6 FL (80.0-94.0); MEAN PLATELET VOLUME 7.8 FL (7.4-10.4); PLATELET COUNT 115 /CUMM (130-400); RBC DISTRIBUTION WIDTH 13.2 % (11.5-14.5); RED BLOOD CELL CT 3.56 /CUMM (4.70-6.10); WHITE BLOOD CELL COUNT 4.8 /CUMM (4.8-10.8)
[2017-05-06 09:36] LABS: HEMATOCRIT 32.2 % (42-52)
--- NOTE | 2017-05-06 09:58 | PN- Housestaff ---
Subjective Follow-up For: LALO dehydartion Lactiac acdiosis high INR Subjective: No acute events overnight. No N/V/D overnight. Feeling slightlt better Review of Systems Constitutional: Reports: no symptoms. Cardiovascular: Reports: no symptoms. Respiratory: Reports: no symptoms. Gastrointestinal: Reports: no symptoms. Genitourinary: Reports: no symptoms. Musculoskeletal: Reports: no symptoms. Objective Last 24 Hrs of Vital Signs/I&O Vital Signs Date Time Temp Pulse Resp B/P B/P Pulse O2 O2 Flow FiO2 Mean Ox Delivery Rate 05/06 2141 98.0 70 19 130/100 94 Room Air 05/06 1515 98.0 73 20 132/70 94 Room Air 05/06 0808 98.4 79 18 150/96 95 Room Air 05/06 0130 97.2 69 20 144/92 95 Intake & Output 05/07 0800 05/07 0000 05/06 1600 Intake Total 1250 Output Total 700 450 Balance -700 800 Intake, IV 600 Intake, Oral 650 Number 0 Bowel Movements Output, Urine 700 450 Physical Exam General Appearance: Alert, Oriented X3, Cooperative, No Acute Distress, flat affect Cardiovascular: irergularly irregular Lungs: Clear to Auscultation, Normal Air Movement Abdomen: Normal Bowel Sounds, Soft, No Tenderness Extremities: L sided weakness Other Physical Findings: UE tremors Current Medications: Current Medications Sig/Miladis Start time Last Medication Dose Route Stop Time Status Admin Acetaminophen 650 MG Q6P PRN 05/06 2345 AC PO Acetaminophen 1,000 MG Q6P PRN 05/06 2345 AC IV Atorvastatin Calcium 10 MG 1700 05/06 1700 AC 05/06 PO 1734 Dextrose/Sodium 1,000 ML Q20H 05/06 1700 AC 05/06 Chloride IV 1735 Famotidine 20 MG DAILY 05/06 1000 AC 05/06 PO 0942 Levetiracetam 500 MG BID 05/06 0014 AC 05/06 PO 2110 Levothyroxine Sodium 0.125 MG DAILY AC 05/06 0700 AC 05/06 PO 0612 Sodium Chloride 1,000 ML Q6H 05/05 2000 DC 05/06 IV 1455 Last 24 Hrs of Lab/Santosh Results Last 24 Hrs of Labs/Mics: Laboratory Tests 05/06/17 1605: PT 58.3 *H, INR 5.65 *H 05/06/17 0625: Anion Gap 8, Estimated GFR > 60, BUN/Creatinine Ratio 12.7, CBC w Diff NO MAN DIFF REQ, RBC 3.56 L, MCV 90.6, MCH 31.0, RDW 13.2, MPV 7.8, Gran % 71.2, Lymphocytes % 17.9 L, Monocytes % 7.9, Eosinophils % 2.7, Basophils % 0.3, Absolute Granulocytes 3.4, Absolute Lymphocytes 0.9 L, Absolute Monocytes 0.4, Absolute Eosinophils 0.1, Absolute Basophils 0, PUBS MCHC 34.3 05/06/17 0210: Troponin I < 0.01, PT 53.6 *H, INR 5.19 *H Microbiology 05/06 1645 STOOL: Cryptosporidium Antigen - COLB 05/06 1645 STOOL: Giardia Antigen (SANTOSH) - COLB 05/06 1645 STOOL: Clostridium difficile Toxin A & B - COLB 05/06 1645 STOOL: Stool Culture - COLB Assessment/Plan Assessment: Mr. 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 A/P; #Acute kidney injury; likely secondary to dehydration in the setting of loose watery stools. Lactic acid 2.9 -> 1.4 Ct abd/pelvis:No acute intra-abdominal or pelvic findings. Stable appearance of hepatic cysts. Cholelithiasis without CT evidence for acute cholecystitis. IVC filter in place. - continue IV fluids - Follow-up C. difficile, blood and stool cultures. - PT evaluation; would probably need STR placement on discharge.(Nursing staff in the ED tried to ambulate and weight-bear patient however he required significant assistance from getting up out of bed to a sitting position, patient has had significant diminished baseline function). #One episode of chest discomfort CXR:Low lung volumes. Limited exam. No convincing acute cardiopulmonary process. EKG reveals sinus rhythm with PAC Spoke to cardiology Trops <.01 x2 #shoudler subluxation CXRThere is mild superior subluxation of the left glenohumeral joint. -cont to monitor -consider ortho consult # History of CVA/PVD/DVT INR supratherapeutic >5.0 - Daily INR and dose Coumadin accordingly. #History of seizures - Continue Keppra. #History of hypertension; -hold antihypertensives for now in the setting of hypotension. - Restart tomorrow depending on blood pressure. #History of GERD, depression, hyperlipidemia and hypothyroidism - We'll continue famotidine, Pepcid, Lexapro, simvastatin and levothyroxine. Problem List: 1. LALO (acute kidney injury) 2. Diarrhea 3. Lactic acid acidosis Pain Ratin Pain Location: none Pain Goal: Pain 4 or less Pain Plan: pain pathway Tomorrow's Labs & Rationales: cbc bep inr
--- NOTE | 2017-05-06 13:21 | Admission Certification ---
Admission Certification Certification Statement - As attending physician, I certify that at the time of - admission, based on clinical presentation, severity of - symptoms, need for further diagnostic testing and - therapeutic interventions, and risk of adverse outcomes - without in-hospital treatment, in my clinical assessment, - this patient requires an acute hospital stay for a minimum - of two nights or longer. I have also considered psychsocial - factors such as support system, advanced age, financial - issues, cognitive issues, and failed out-patient treatments, - past re-admission history, safety of patient, and lack of - compliance as applicable. Specific rationale supporting this admission is: sig hypotension, gastroenteritis
[2017-05-06 15:15] VITALS: BP 132/70
[2017-05-06 17:22] LABS: PT 58.3 SEC (9.4-12.5)
[2017-05-06 21:41] VITALS: BP 130/100
[2017-05-07 06:31] VITALS: BP 166/116
--- NOTE | 2017-05-07 07:35 | PN- Housestaff ---
Robinson REEVES,[facility] 05/07/17 0734: Subjective Follow-up For: lalo / dehydraiton due to loose stools lactic acidosis high INR Subjective: No acute events overnight. No n/v/d last night. States some constipation now. Review of Systems Constitutional: Reports: no symptoms. Cardiovascular: Reports: no symptoms. Respiratory: Reports: no symptoms. Gastrointestinal: Reports: no symptoms. Genitourinary: Reports: no symptoms. Musculoskeletal: Reports: no symptoms. Objective Last 24 Hrs of Vital Signs/I&O Vital Signs Date Time Temp Pulse Resp B/P B/P Pulse O2 O2 Flow FiO2 Mean Ox Delivery Rate 05/07 1601 70 146/84 05/07 1514 97.9 71 20 160/100 95 Room Air 05/07 1250 80 146/92 05/07 1250 80 146/92 05/07 0901 154/100 05/07 0631 98.0 75 20 166/116 96 05/07 0623 75 166/116 05/07 0623 75 166/116 Intake & Output 05/07 1600 05/07 0800 05/07 0000 Intake Total 1100 460 Output Total 900 750 700 Balance 200 -290 -700 Intake, IV 500 360 Intake, Oral 600 100 Output, Urine 900 750 700 Physical Exam General Appearance: Alert, Cooperative, No Acute Distress, flat affect Cardiovascular: Regular Rate, Normal S1, Normal S2 Lungs: R lung inspiratory crackles Abdomen: decrease bowel sounds Extremities: L side weakness 2/2 cva/seizures Current Medications: Current Medications Sig/Miladis Start time Last Medication Dose Route Stop Time Status Admin Acetaminophen 650 MG Q6P PRN 05/06 2345 AC PO Acetaminophen 1,000 MG Q6P PRN 05/06 2345 AC IV Amlodipine Besylate 2.5 MG DAILY 05/07 0545 AC 05/07 PO 1250 Atorvastatin Calcium 10 MG 1700 05/06 1700 AC 05/07 PO 1802 Dextrose/Sodium 1,000 ML Q20H 05/06 1700 DC 05/07 Chloride IV 1249 Famotidine 20 MG DAILY 05/06 1000 AC 05/07 PO 0946 Levetiracetam 500 MG BID 05/06 0014 AC 05/07 PO 2133 Levothyroxine Sodium 0.125 MG DAILY AC 05/06 0700 AC 05/07 PO 0653 Lisinopril 5 MG DAILY 05/07 0545 AC 05/07 PO 1250 Patient Medication 1 ED ONE ONE 05/07 1315 DC Teaching ED 05/07 1316 Triamcinolone 1 EVERETT BID 05/07 1600 AC 05/07 Acetonide TOP 1802 Last 24 Hrs of Lab/Santosh Results Last 24 Hrs of Labs/Mics: Laboratory Tests 05/07/17 0643: Anion Gap 12, Estimated GFR > 60, BUN/Creatinine Ratio 12.2, PT 48.0 *H, INR 4.64 *H, CBC w Diff NO MAN DIFF REQ, RBC 3.81 L, MCV 90.9, MCH 30.6, RDW 13.3, MPV 7.7, Gran % 74.3, Lymphocytes % 14.8 L, Monocytes % 6.6, Eosinophils % 3.9, Basophils % 0.4, Absolute Granulocytes 3.7, Absolute Lymphocytes 0.7 L, Absolute Monocytes 0.3, Absolute Eosinophils 0.2, Absolute Basophils 0, PUBS MCHC 33.7 Assessment/Plan Assessment: Mr. 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 A/P; #Acute kidney injury; likely secondary to dehydration in the setting of loose watery stools. Lactic acid 1.8 -> 0.9 Ct abd/pelvis:No acute intra-abdominal or pelvic findings. Stable appearance of hepatic cysts. Cholelithiasis without CT evidence for acute cholecystitis. IVC filter in place. - Follow-up C. difficile, blood and stool cultures. - PT evaluation; would probably need STR placement on discharge.(Nursing staff in the ED tried to ambulate and weight-bear patient however he required significant assistance from getting up out of bed to a sitting position, patient has had significant diminished baseline function). #new rash on chest and lateral abdomens Possibly reaction due to reaction of ekg pad placements -cont steroid cream and monitor #One episode of chest discomfort CXR:Low lung volumes. Limited exam. No convincing acute cardiopulmonary process. EKG reveals sinus rhythm with PAC Spoke to cardiology Trops <.01 x2 #shoudler subluxation CXRThere is mild superior subluxation of the left glenohumeral joint. -cont to monitor -consider ortho consult # History of CVA/PVD/DVT INR supratherapeutic 4.64 - Daily INR and dose Coumadin accordingly. #History of seizures - Continue Keppra. #History of hypertension; -hold antihypertensives for now in the setting of hypotension. - Restart tomorrow depending on blood pressure. #History of GERD, depression, hyperlipidemia and hypothyroidism - We'll continue famotidine, Pepcid, Lexapro, simvastatin and levothyroxine. #DVT prophylaxis -warfarin #FULL CODE Problem List: 1. LALO (acute kidney injury) Pain Ratin Pain Location: none Pain Goal: Pain 4 or less Pain Plan: pain pathway Tomorrow's Labs & Rationales: cbc bep inr Terri REEVES,[facility] 05/07/17 1349: Objective Last 24 Hrs of Vital Signs/I&O Vital Signs Date Time Temp Pulse Resp B/P B/P Pulse O2 O2 Flow FiO2 Mean Ox Delivery Rate 05/07 1250 80 146/92 05/07 1250 80 146/92 05/07 0901 154/100 05/07 0631 98.0 75 20 166/116 96 05/07 0623 75 166/116 05/07 0623 75 166/116 05/06 2141 98.0 70 19 130/100 94 Room Air 05/06 1515 98.0 73 20 132/70 94 Room Air Intake & Output 05/07 1600 05/07 0800 05/07 0000 Intake Total 460 Output Total 750 700 Balance -290 -700 Intake, IV 360 Intake, Oral 100 Output, Urine 750 700 Laboratory Tests 05/07 05/06 0643 1605 Chemistry Sodium (137 - 145 mmol/L) 145 Potassium (3.5 - 5.1 mmol/L) 3.9 Chloride (98 - 107 mmol/L) 107 Carbon Dioxide (22 - 30 mmol/L) 26 Anion Gap (5 - 16) 12 BUN (9 - 20 mg/dL) 11 Creatinine (0.7 - 1.2 mg/dL) 0.9 Estimated GFR (>60 ml/min) > 60 BUN/Creatinine Ratio (7 - 25 %) 12.2 Coagulation PT (9.4 - 12.5 SEC) 48.0 *H 58.3 *H INR (0.90 - 1.17) 4.64 *H 5.65 *H Hematology CBC w Diff NO MAN DIFF REQ WBC (4.8 - 10.8 /CUMM) 5.0 RBC (4.70 - 6.10 /CUMM) 3.81 L Hgb (14.0 - 18.0 G/DL) 11.7 L Hct (42 - 52 %) 34.7 L MCV (80.0 - 94.0 FL) 90.9 MCH (27.0 - 31.0 PG) 30.6 RDW (11.5 - 14.5 %) 13.3 Plt Count (130 - 400 /CUMM) 118 L MPV (7.4 - 10.4 FL) 7.7 Gran % (42.2 - 75.2 %) 74.3 Lymphocytes % (20.5 - 51.1 %) 14.8 L Monocytes % (1.7 - 9.3 %) 6.6 Eosinophils % (0 - 5 %) 3.9 Basophils % (0.0 - 2.0 %) 0.4 Absolute Granulocytes (1.4 - 6.5 /CUMM) 3.7 Absolute Lymphocytes (1.2 - 3.4 /CUMM) 0.7 L Absolute Monocytes (0.10 - 0.60 /CUMM) 0.3 Absolute Eosinophils (0.0 - 0.7 /CUMM) 0.2 Absolute Basophils (0.0 - 0.2 /CUMM) 0 PUBS MCHC (33.0 - 37.0 G/DL) 33.7 05/06 05/06 05/05 0625 0210 1929 Chemistry Sodium (137 - 145 mmol/L) 145 Potassium (3.5 - 5.1 mmol/L) 3.9 Chloride (98 - 107 mmol/L) 112 H Carbon Dioxide (22 - 30 mmol/L) 25 Anion Gap (5 - 16) 8 BUN (9 - 20 mg/dL) 14 Creatinine (0.7 - 1.2 mg/dL) 1.1 Estimated GFR (>60 ml/min) > 60 BUN/Creatinine Ratio (7 - 25 %) 12.7 Lactic Acid (0.7 - 2.1 mmol/L) 1.4 Troponin I (<0.11 ng/ml) < 0.01 Coagulation PT (9.4 - 12.5 SEC) 53.6 *H INR (0.90 - 1.17) 5.19 *H Hematology CBC w Diff NO MAN DIFF REQ WBC (4.8 - 10.8 /CUMM) 4.8 RBC (4.70 - 6.10 /CUMM) 3.56 L Hgb (14.0 - 18.0 G/DL) 11.0 L Hct (42 - 52 %) 32.2 L MCV (80.0 - 94.0 FL) 90.6 MCH (27.0 - 31.0 PG) 31.0 RDW (11.5 - 14.5 %) 13.2 Plt Count (130 - 400 /CUMM) 115 L MPV (7.4 - 10.4 FL) 7.8 Gran % (42.2 - 75.2 %) 71.2 Lymphocytes % (20.5 - 51.1 %) 17.9 L Monocytes % (1.7 - 9.3 %) 7.9 Eosinophils % (0 - 5 %) 2.7 Basophils % (0.0 - 2.0 %) 0.3 Absolute Granulocytes (1.4 - 6.5 /CUMM) 3.4 Absolute Lymphocytes (1.2 - 3.4 /CUMM) 0.9 L Absolute Monocytes (0.10 - 0.60 /CUMM) 0.4 Absolute Eosinophils (0.0 - 0.7 /CUMM) 0.1 Absolute Basophils (0.0 - 0.2 /CUMM) 0 PUBS MCHC (33.0 - 37.0 G/DL) 34.3 05/05 05/05 1640 1624 Blood Gas pH (7.35 - 7.45 PH) 7.35 pCO2 (35 - 45 TORR) 37 pO2 (80 - 100 TORR) 75 L HCO3 (21 - 28 MEQ/L) 20 L ABG O2 Sat (Measured) (>96.0 %) 92.0 L P-50 (Temp Corrected) N Carboxyhemoglobin (1.5 - 5.0 %) 0.3 L O2 Concentration % R/A Temperature (97.0 - 100.0 FARH) 97.7 Chemistry Magnesium Cancelled Miscellaneous Phlebotomy Draw Site RIGHT RADIAL 05/05 1615 Chemistry Sodium (137 - 145 mmol/L) 145 Potassium (3.5 - 5.1 mmol/L) 4.4 Chloride (98 - 107 mmol/L) 104 Carbon Dioxide (22 - 30 mmol/L) 26 Anion Gap (5 - 16) 16 BUN (9 - 20 mg/dL) 18 Creatinine (0.7 - 1.2 mg/dL) 1.8 H Estimated GFR (>60 ml/min) 38 L BUN/Creatinine Ratio (7 - 25 %) 10.0 Glucose (65 - 99 mg/dL) 141 H Lactic Acid (0.7 - 2.1 mmol/L) 2.9 H Calcium (8.4 - 10.2 mg/dL) 9.2 Magnesium (1.6 - 2.3 mg/dL) 2.0 Total Bilirubin (0.2 - 1.3 mg/dL) 1.4 H Direct Bilirubin (< 0.4 mg/dL) 0.4 AST (17 - 59 U/L) 17 ALT (21 - 72 U/L) 33 Alkaline Phosphatase (< 127 U/L) 70 Troponin I (<0.11 ng/ml) < 0.01 Total Protein (6.3 - 8.2 g/dL) 7.1 Albumin (3.5 - 5.0 g/dL) 4.1 Globulin (1.9 - 4.2 gm/dL) 3.0 Albumin/Globulin Ratio (1.1 - 2.2 %) 1.4 Amylase (30 - 110 U/L) 39 Lipase (23 - 300 U/L) 92 Hematology CBC w Diff NO MAN DIFF REQ WBC (4.8 - 10.8 /CUMM) 6.3 RBC (4.70 - 6.10 /CUMM) 4.20 L Hgb (14.0 - 18.0 G/DL) 12.8 L Hct (42 - 52 %) 38.0 L MCV (80.0 - 94.0 FL) 90.4 MCH (27.0 - 31.0 PG) 30.4 RDW (11.5 - 14.5 %) 13.9 Plt Count (130 - 400 /CUMM) 163 MPV (7.4 - 10.4 FL) 7.4 Gran % (42.2 - 75.2 %) 67.2 Lymphocytes % (20.5 - 51.1 %) 22.3 Monocytes % (1.7 - 9.3 %) 7.8 Eosinophils % (0 - 5 %) 2.2 Basophils % (0.0 - 2.0 %) 0.5 Absolute Granulocytes (1.4 - 6.5 /CUMM) 4.2 Absolute Lymphocytes (1.2 - 3.4 /CUMM) 1.4 Absolute Monocytes (0.10 - 0.60 /CUMM) 0.5 Absolute Eosinophils (0.0 - 0.7 /CUMM) 0.1 Absolute Basophils (0.0 - 0.2 /CUMM) 0 PUBS MCHC (33.0 - 37.0 G/DL) 33.7 Microbiology Date/Time Procedure - Status Source Growth 05/06 164 Cryptosporidium Antigen - CAN STOOL Cancelled: SPECIMEN NOT RECEIVED IN LABORATORY 05/06 164 Giardia Antigen (SANTOSH) - CAN STOOL Cancelled: SPECIMEN NOT RECEIVED IN LABORATORY 05/06 164 Clostridium difficile Toxin A & B - CAN STOOL Cancelled: SPECIMEN NOT RECEIVED IN LABORATORY 05/06 1645 Stool Culture - CAN STOOL Cancelled: SPECIMEN NOT RECEIVED IN LABORATORY 05/05 1725 Blood Culture - RES BLOOD 05/05 1715 Blood Culture - RES BLOOD 05/05 1625 Clostridium difficile Toxin A & B - CAN STOOL Cancelled: SPECIMEN NOT RECEIVED IN LABORATORY 05/05 1625 Stool Culture - CAN STOOL Cancelled: SPECIMEN NOT RECEIVED IN LABORATORY Attending MD Review Statement Attending Statement Attending MD Statement: examined this patient, discuss w/resident/PA/DYE TUB OPERATOR, agreed w/resident/PA/DYE TUB OPERATOR, discussed with family, reviewed EMR data (avail), discussed with nursing, discussed with case mgmt, reviewed images, amended to note Attending Assessment/Plan: Pt getting changed this am OTherwise stable PT eval noted from before - PT evaluation; would probably need STR placement on discharge.(Nursing staff in the ED tried to ambulate and weight-bear patient however he required significant assistance from getting up out of bed to a sitting position, patient has had significant diminished baseline function). Patient is a 67-year-old gentleman with a past medical history significant for CVA 2007 with residual left sided weakness on Coumadin, history of seizures on Keppra, history of hypertension and hyperlipidemia, history of hypothyroidism, GERD presented to the ED for evaluation of generalized weakness/malaise with vomiting and diarrhea and hypotension Problem list REsolved Acute kidney injury likely due to dehydration( in the setting of diarrhea )with hypotension Vom iting and diarrhea due to prob gastroenteritis ( neg abd ct) improving Dizziness /lightheadedness unlikely acs Slight hyperbilirubinemia, chronic and now stable significant for CVA 2007 with residual left sided weakness on Coumadin History of seizures History of hypertension and hyperlipidemia Previous ivc filter Recent fall with djd of shoulder Poor performance status with gait issues and needs str REC Admit IVF Stool for cdiff, culture, O and p if he has further diarrhea Cont current meds DC ivf Watch for pulm edema KEep hob up Cont other meds Will follow Dispo plans in am if stable to str
[2017-05-07 08:42] LABS: ABSOLUTE BASOPHIL COUNT 0 /CUMM (0.0-0.2); ABSOLUTE EOSINOPHIL COUNT 0.2 /CUMM (0.0-0.7); ABSOLUTE GRANULOCYTE CT 3.7 /CUMM (1.4-6.5); ABSOLUTE LYMPH COUNT 0.7 /CUMM (1.2-3.4); ABSOLUTE MONOCYTE COUNT 0.3 /CUMM (0.10-0.60); BASOPHIL % 0.4 % (0.0-2.0); EOSINOPHIL % 3.9 % (0-5); GRANULOCYTE % 74.3 % (42.2-75.2); HEMATOCRIT 34.7 % (42-52); MEAN CORPUSCULAR HGB 30.6 PG (27.0-31.0); MEAN CORPUSCULAR HGB CONC 33.7 G/DL (33.0-37.0); MEAN CORPUSCULAR VOLUME 90.9 FL (80.0-94.0); MEAN PLATELET VOLUME 7.7 FL (7.4-10.4); PLATELET COUNT 118 /CUMM (130-400); RBC DISTRIBUTION WIDTH 13.3 % (11.5-14.5); RED BLOOD CELL CT 3.81 /CUMM (4.70-6.10)
[2017-05-07 09:01] VITALS: BP 154/100
[2017-05-07 15:14] VITALS: BP 160/100
[2017-05-07 16:01] VITALS: BP 146/84
[2017-05-07 23:42] VITALS: BP 143/81
[2017-05-08 07:12] VITALS: BP 144/104
[2017-05-08 07:46] LABS: ABSOLUTE BASOPHIL COUNT 0 /CUMM (0.0-0.2); ABSOLUTE EOSINOPHIL COUNT 0.3 /CUMM (0.0-0.7); ABSOLUTE GRANULOCYTE CT 3.5 /CUMM (1.4-6.5); ABSOLUTE LYMPH COUNT 0.9 /CUMM (1.2-3.4); ABSOLUTE MONOCYTE COUNT 0.3 /CUMM (0.10-0.60); BASOPHIL % 0.6 % (0.0-2.0); EOSINOPHIL % 5.8 % (0-5); GRANULOCYTE % 69.6 % (42.2-75.2); HEMATOCRIT 35.9 % (42-52); MEAN CORPUSCULAR HGB 31.5 PG (27.0-31.0); MEAN CORPUSCULAR HGB CONC 34.9 G/DL (33.0-37.0); MEAN CORPUSCULAR VOLUME 90.3 FL (80.0-94.0); MEAN PLATELET VOLUME 7.4 FL (7.4-10.4); PLATELET COUNT 121 /CUMM (130-400); RBC DISTRIBUTION WIDTH 13.4 % (11.5-14.5); RED BLOOD CELL CT 3.98 /CUMM (4.70-6.10)
[2017-05-08 07:55] LABS: PT 31.8 SEC (9.4-12.5)
--- NOTE | 2017-05-08 08:00 | Discharge Summary ---
Visit Information Visit Dates Admission Date: 05/05/17 Discharge Date: 05/08/2017 Hospital Course Course Attending Physician: Terri REEVES,Jonny Vogel Primary Care Physician: Jett REEVES,[place] Hospital Course: Patient is a 67-year-old gentleman with a past medical history significant for CVA 2007 with residual left sided weakness on Coumadin, history of seizures on Keppra, history of hypertension and hyperlipidemia, history of hypothyroidism, GERD presented to the ED for evaluation of generalized weakness/malaise. As per patient he was in his usual state of health until one day prior to admission when he started feeling very weak and lethargic. Also had an episode of substernal pressure-like dull chest discomfort without any shortness of breath palpitations,that improved itself. Later after a bowel movement, patient felt very dizzy/lightheaded and slipped, fell in the bathroom. Denied any head traumas. EMS was called, on his way to the hospital patient had one episode of nonbilious nonbloody vomiting. we admitted the patient to general medicine and we managed her for the following problems: Acute kidney injury likely due to dehydration( in the setting of diarrhea )with hypotension, we hydarte with iv fluid, she was noticed to have elevated lactic acid on admission which is likely due to dehydration, improved after aggressive IV hydration. We held antihypertensives which resumed after discharge. Patient noted to have supratherapeutic INR, which was 3.06 on 05/08/2017, will give 2mg of coumadin. (He is on 7.5 at home, please follow up with your PCP regarding Coumadin dosingand INR) Dizziness /lightheadedness with one episode of substernal chest discomfort (rule out ACS), Serial troponin EKG to rule out any underlying ACS. significant for CVA 2007 with residual left sided weakness on Coumadin, coumadin held for supratheraputic INR, INR was 3.06 on 05/08/2017, will give 2mg of coumadin. (He is on 7.5 at home, please follow up with your PCP regarding Coumadin dosingand INR) History of seizures * Continue Keppra 500 mg twice a day * patient was apparently incontinent at the time of arrival ,maintain seizures and aspiration precautions * History of hypertension and hyperlipidemia * Hold antihypertensives in the setting of hypotension. Mild to moderate pain controlled with Tylenol DVT prophylaxis with Coumadin Patient is full code Allergies: Coded Allergies: Iodinated Contrast- Oral and IV Dye (UNKNOWN 11/30/16) Penicillins (UNKNOWN 11/30/16) bacitracin (PER PT EYE OINTMENT -DOES NOT REMEMBER REACTION 05/05/17) Disposition Summary Disposition Principal Diagnosis: Acute kidney injury likely due to dehydration( in the setting of diarrhea )with hypotension Vom iting and diarrhea due to prob gastroenteritis ( neg abd ct) Dizziness /lightheadedness unlikely acs Slight hyperbilirubinemia, chronic and now stable significant for CVA 2007 with residual left sided weakness on Coumadin History of seizures History of hypertension and hyperlipidemia Previous ivc filter Recent fall with djd of shoulder Additional Diagnosis: As above Discharge Disposition: SNF Discharge Instructions General Discharge Information Code Status: Full Code Patient's Diet: Heart healthy diet Patient's Activity: As tolerated Follow-Up Instructions/Appts: -Follow up with PCP after discharge -Please f/u with your pcp regarding INR, repeat INR in 2-3 days after discharge and dose it as needed. Medications at Discharge Discharge Medications: Continue taking these medications: Tamsulosin HCl (Flomax) 0.4 MG CAP.ER.24H 2 Capsule ORAL DAILY Simvastatin (Zocor*) 20 MG TABLET 1 Tablet ORAL Every night Amlodipine (Norvasc) 2.5 MG TABLET 1 Tablet ORAL DAILY Famotidine (Famotidine) 20 MG TABLET 1 Tablet ORAL DAILY Levothyroxine Sodium (Levothyroxine Sodium) 125 MCG TABLET 1 Tablet ORAL DAILY BEFORE BREAKFAST Warfarin Sodium (Coumadin) 7.5 MG TABLET 1 Tablet ORAL 5 PM Lisinopril (Prinivil) 5 MG TABLET 1 Tablet ORAL DAILY Escitalopram Oxalate (Lexapro) 20 MG TABLET 1 Tablet ORAL DAILY Levetiracetam (Keppra) 500 MG TABLET 1 Tablet ORAL TWICE DAILY Linaclotide (Linzess) 290 MCG CAPSULE 1 Capsule ORAL DAILY Qty = 30 Polyethylene Glycol 3350 (Polyethylene Glycol 3350) 17 GRAM/DOSE POWDER 17 Gram ORAL as needed for GI Qty = 527 Multiple Vitamin (Multivitamins) 1 EACH TABLET 1 Tablet ORAL DAILY Sennosides (Senna) 8.6 MG TABLET 2 Tablet ORAL TWICE DAILY Copies To: Jett REEVES,[place]
--- NOTE | 2017-05-08 08:34 | PN- Housestaff ---
Subjective Follow-up For: lalo dehydration Subjective: No acute events overnight. Pt states diarrhea improved. Wishing to be discharged home instead of going to [facility]. Review of Systems Constitutional: Reports: no symptoms. Cardiovascular: Reports: no symptoms. Respiratory: Reports: no symptoms. Gastrointestinal: Reports: no symptoms. Genitourinary: Reports: no symptoms. Musculoskeletal: Reports: no symptoms. Objective Last 24 Hrs of Vital Signs/I&O Vital Signs Date Time Temp Pulse Resp B/P B/P Pulse O2 O2 Flow FiO2 Mean Ox Delivery Rate 05/08 1421 98.3 72 18 128/86 96 Room Air 05/08 1357 98.0 76 18 140/96 05/08 0932 Nasal 2.0L Cannula 05/08 0901 Nasal 2.0L Cannula 05/08 0853 76 140/96 05/08 0845 76 140/96 05/08 0712 98.0 61 18 144/104 95 Nasal Cannula 05/07 2342 97.5 68 18 143/81 96 Room Air Intake & Output 05/08 1600 05/08 0800 05/08 0000 Intake Total 910 120 200 Output Total 950 300 900 Balance -40 -180 -700 Intake, IV 10 Intake, Oral 900 120 200 Number 0 0 0 Bowel Movements Output, Urine 950 300 900 Physical Exam General Appearance: Alert, Cooperative, No Acute Distress Cardiovascular: Regular Rate, Normal S1, Normal S2 Lungs: decreased air movement Abdomen: Normal Bowel Sounds, Soft, No Tenderness Extremities: L sided weakness 2/2 to cva. , R hand tremors Vascular: 2+ radial pulses Current Medications: Current Medications Sig/Miladis Start time Last Medication Dose Route Stop Time Status Admin Acetaminophen 650 MG .STK-MED ONE 05/07 2242 DC PO 05/07 224 Acetaminophen 650 MG Q6P PRN 05/06 2345 DCD 05/07 PO 2246 Acetaminophen 1,000 MG Q6P PRN 05/06 2345 DCD IV Amlodipine Besylate 2.5 MG DAILY 05/07 0545 DCD 05/08 PO 0845 Atorvastatin Calcium 10 MG 1700 05/06 1700 DCD 05/08 PO 1606 Famotidine 20 MG DAILY 05/06 1000 DCD 05/08 PO 0845 Levetiracetam 500 MG BID 05/06 0014 DCD 05/08 PO 0845 Levothyroxine Sodium 0.125 MG DAILY AC 05/06 0700 DCD 05/08 PO 0652 Lisinopril 5 MG DAILY 05/07 0545 DCD 05/08 PO 0845 Triamcinolone 1 EVERETT BID 05/07 1600 DCD 05/08 Acetonide TOP 0845 Warfarin Sodium 2 MG COUMADIN 1700 ONE 05/08 1700 DCD 05/08 PO 05/08 1701 1606 Last 24 Hrs of Lab/Santosh Results Last 24 Hrs of Labs/Mics: Laboratory Tests 05/08/17 0639: Anion Gap 11, Estimated GFR > 60, BUN/Creatinine Ratio 10.0, PT 31.8 H, INR 3.06 H, CBC w Diff NO MAN DIFF REQ, RBC 3.98 L, MCV 90.3, MCH 31.5 H, RDW 13.4, MPV 7.4, Gran % 69.6, Lymphocytes % 17.2 L, Monocytes % 6.8, Eosinophils % 5.8 H, Basophils % 0.6, Absolute Granulocytes 3.5, Absolute Lymphocytes 0.9 L, Absolute Monocytes 0.3, Absolute Eosinophils 0.3, Absolute Basophils 0, PUBS MCHC 34.9 Assessment/Plan Assessment: A: Mr. 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 Plan: #Acute kidney injury; likely secondary to dehydration in the setting of loose watery stools. Lactic acid 1.8 -> 0.9 Ct abd/pelvis:No acute intra-abdominal or pelvic findings. Stable appearance of hepatic cysts. Cholelithiasis without CT evidence for acute cholecystitis. IVC filter in place. - Unable to send c. difficile, and stool cultures as patient no longer having diarrhea. - PT evaluation; would probably need STR placement on discharge.(Nursing staff in the ED tried to ambulate and weight-bear patient however he required significant assistance from getting up out of bed to a sitting position, patient has had significant diminished baseline function). #new rash on chest and lateral abdomens Possibly reaction due to reaction of ekg pad placements -cont steroid cream and monitor #One episode of chest discomfort CXR:Low lung volumes. Limited exam. No convincing acute cardiopulmonary process. EKG reveals sinus rhythm with PAC Spoke to cardiology Trops <.01 x2 -continue to monitor #shoudler subluxation CXR: There is mild superior subluxation of the left glenohumeral joint. -cont to monitor -follow outpatient # History of CVA/PVD/DVT INR supratherapeutic 3.06 -give 2mg coumadin today. visit pcp in 2-3 days to readjust coumadin dose. - Daily INR and dose Coumadin accordingly. #History of seizures - Continue Keppra. #History of hypertension; -hold antihypertensives for now in the setting of hypotension. - Restart tomorrow depending on blood pressure. #History of GERD, depression, hyperlipidemia and hypothyroidism - We'll continue famotidine, Pepcid, Lexapro, simvastatin and levothyroxine. #DVT prophylaxis -warfarin #FULL CODE Problem List: 1. Weakness 2. Diarrhea 3. Lactic acid acidosis 4. LALO (acute kidney injury) 5. Dehydration Pain Ratin Pain Location: none Pain Goal: Pain 4 or less Pain Plan: pain pathway Tomorrow's Labs & Rationales: none
[2017-05-08 08:53] VITALS: BP 140/96
--- NOTE | 2017-05-08 11:33 | Patient Discharge Instructions ---
Discharge Instructions General Discharge Information Special Instructions: Please follow up with your pcp in 2-3 days and get your INR checked. Your coumadin will be adjusted at this time. Please take your medications as perscribed. Acute Coronary Syndrome Inclusion Criteria At DC or during hospital stay patient has or had the following: ACS DIAGNOSIS No Discharge Core Measures Meds if any: Prescribed or Continued at Discharge Meds if any: NOT Prescribed or Continued at Discharge Congestive Heart Failure Inclusion Criteria At DC or during hospital stay patient has or had the following: CHF DIAGNOSIS No Discharge Core Measures Meds if any: Prescribed or Continued at Discharge Meds if any: NOT Prescribed or Continued at Discharge Cerebrovascular accident Inclusion Criteria At DC or during hospital stay patient has or had the following: CVA/TIA Diagnosis No Discharge Core Measures Meds if any: Prescribed or Continued at Discharge Meds if any: NOT Prescribed or Continued at Discharge Venous thromboembolism Inclusion Criteria VTE Diagnosis No VTE Type NONE VTE Confirmed by (Test) NONE Discharge Core Measures - Per Current guidelines, there needs to be overlap - treatment for the first 5 days of Warfarin therapy. - If discharged on Warfarin prior to 5 days of - overlap therapy, the patient will need to be - assessed for post discharge needs including - *Post discharge parental anticoagulation - *Warfarin and/or parental anticoagulation education - *Follow up date to check INR post discharge At least 5 days overlap therapy as Inpatient No Meds if any: Prescribed or Continued at Discharge Note: Overlap Therapy is Warfarin and Anticoagulant Meds if any: NOT Prescribed or Continued at Discharge
--- NOTE | 2017-05-08 13:15 | PN- Att Addend ---
Attending Addendum Attending Brief Note Events over the weekend noted. Patient states has had no diarrhea since admission. Is afebrile with systolic blood pressure slightly elevated. No major changes on physical white count is normal sodium is 146 potassium is okay. Patient was seen by physical therapy and recommended term rehabilitation. Arrangements have been started as soon as bed is available with transfer. See the CMR and discharge summary. Intake & Output 05/08 1600 05/08 0400 05/07 1600 05/07 0400 05/06 1600 05/06 0400 Intake Total 598 262 8080 1850 3240 Output Total 988 580 5297 700 850 100 Balance -180 -700 -90 -700 1000 3140 Intake, IV 860 1200 3000 Intake, Oral 120 200 700 650 240 Number 0 0 0 Bowel Movements Output, Urine 753 168 1234 700 850 100 Patient 215 lb Weight Weight Reported by Patient Measurement Method Current Medications Sig/Miladis Start time Last Medication Dose Route Stop Time Status Admin Acetaminophen 650 MG .STK-MED ONE 05/07 2243 DC PO 05/07 2244 Acetaminophen 650 MG Q6P PRN 05/06 2345 AC 05/07 PO 2246 Acetaminophen 1,000 MG Q6P PRN 05/06 2345 AC IV Amlodipine Besylate 2.5 MG DAILY 05/07 0545 AC 05/08 PO 0845 Atorvastatin Calcium 10 MG 1700 05/06 1700 AC 05/07 PO 1802 Dextrose/Sodium 1,000 ML Q20H 05/06 1700 DC 05/07 Chloride IV 1249 Famotidine 20 MG DAILY 05/06 1000 AC 05/08 PO 0845 Levetiracetam 500 MG BID 05/06 0014 AC 05/08 PO 0845 Levothyroxine Sodium 0.125 MG DAILY AC 05/06 0700 AC 05/08 PO 0652 Lisinopril 5 MG DAILY 05/07 0545 AC 05/08 PO 0845 Patient Medication 1 ED ONE ONE 05/07 1315 DC Teaching ED 05/07 1316 Triamcinolone 1 EVERETT BID 05/07 1600 AC 05/08 Acetonide TOP 0845 Warfarin Sodium 2 MG COUMADIN 1700 ONE 05/08 1700 AC PO 05/08 1701 Laboratory Tests 05/08/17 0639: Anion Gap 11, Estimated GFR > 60, BUN/Creatinine Ratio 10.0, PT 31.8 H, INR 3.06 H, CBC w Diff NO MAN DIFF REQ, RBC 3.98 L, MCV 90.3, MCH 31.5 H, RDW 13.4, MPV 7.4, Gran % 69.6, Lymphocytes % 17.2 L, Monocytes % 6.8, Eosinophils % 5.8 H, Basophils % 0.6, Absolute Granulocytes 3.5, Absolute Lymphocytes 0.9 L, Absolute Monocytes 0.3, Absolute Eosinophils 0.3, Absolute Basophils 0, PUBS MCHC 34.9 05/07/17 0643: Anion Gap 12, Estimated GFR > 60, BUN/Creatinine Ratio 12.2, PT 48.0 *H, INR 4.64 *H, CBC w Diff NO MAN DIFF REQ, RBC 3.81 L, MCV 90.9, MCH 30.6, RDW 13.3, MPV 7.7, Gran % 74.3, Lymphocytes % 14.8 L, Monocytes % 6.6, Eosinophils % 3.9, Basophils % 0.4, Absolute Granulocytes 3.7, Absolute Lymphocytes 0.7 L, Absolute Monocytes 0.3, Absolute Eosinophils 0.2, Absolute Basophils 0, PUBS MCHC 33.7 05/06/17 1605: PT 58.3 *H, INR 5.65 *H 05/06/17 0625: Anion Gap 8, Estimated GFR > 60, BUN/Creatinine Ratio 12.7, CBC w Diff NO MAN DIFF REQ, RBC 3.56 L, MCV 90.6, MCH 31.0, RDW 13.2, MPV 7.8, Gran % 71.2, Lymphocytes % 17.9 L, Monocytes % 7.9, Eosinophils % 2.7, Basophils % 0.3, Absolute Granulocytes 3.4, Absolute Lymphocytes 0.9 L, Absolute Monocytes 0.4, Absolute Eosinophils 0.1, Absolute Basophils 0, PUBS MCHC 34.3 05/06/17 0210: Troponin I < 0.01, PT 53.6 *H, INR 5.19 *H 05/05/17 1929: Lactic Acid 1.4 05/05/17 1640: pH 7.35, pCO2 37, pO2 75 L, HCO3 20 L, ABG O2 Sat (Measured) 92.0 L, P-50 ( Temp Corrected) N, Carboxyhemoglobin 0.3 L, O2 Concentration % R/A, Temperature 97.7, Phlebotomy Draw Site RIGHT RADIAL 05/05/17 1624: Magnesium Cancelled 05/05/17 1615: Anion Gap 16, Estimated GFR 38 L, BUN/Creatinine Ratio 10.0, Glucose 141 H, Lactic Acid 2.9 H, Calcium 9.2, Magnesium 2.0, Total Bilirubin 1.4 H, Direct Bilirubin 0.4, AST 17, ALT 33, Alkaline Phosphatase 70, Troponin I < 0.01, Total Protein 7.1, Albumin 4.1, Globulin 3.0, Albumin/Globulin Ratio 1.4, Amylase 39, Lipase 92, CBC w Diff NO MAN DIFF REQ, RBC 4.20 L, MCV 90.4, MCH 30.4, RDW 13.9 , MPV 7.4, Gran % 67.2, Lymphocytes % 22.3, Monocytes % 7.8, Eosinophils % 2.2, Basophils % 0.5, Absolute Granulocytes 4.2, Absolute Lymphocytes 1.4, Absolute Monocytes 0.5, Absolute Eosinophils 0.1, Absolute Basophils 0, PUBS MCHC 33.7 Microbiology 05/07 2147 STOOL: Cryptosporidium Antigen - CAN Cancelled: SPECIMEN NOT RECEIVED IN LABORATORY 05/07 2147 STOOL: Giardia Antigen (SAMUEL) - CAN Cancelled: SPECIMEN NOT RECEIVED IN LABORATORY 05/07 2147 STOOL: Clostridium difficile Toxin A & B - CAN Cancelled: SPECIMEN NOT RECEIVED IN LABORATORY 05/07 2147 STOOL: Stool Culture - CAN Cancelled: SPECIMEN NOT RECEIVED IN LABORATORY 05/06 1645 STOOL: Cryptosporidium Antigen - CAN Cancelled: SPECIMEN NOT RECEIVED IN LABORATORY 05/06 164 STOOL: Giardia Antigen (SAMUEL) - CAN Cancelled: SPECIMEN NOT RECEIVED IN LABORATORY 05/06 164 STOOL: Clostridium difficile Toxin A & B - CAN Cancelled: SPECIMEN NOT RECEIVED IN LABORATORY 05/06 1646 STOOL: Stool Culture - CAN Cancelled: SPECIMEN NOT RECEIVED IN LABORATORY 05/05 1725 BLOOD: Blood Culture - RES 05/05 1715 BLOOD: Blood Culture - RES 05/05 1625 STOOL: Clostridium difficile Toxin A & B - CAN Cancelled: SPECIMEN NOT RECEIVED IN LABORATORY 05/05 162 STOOL: Stool Culture - CAN Cancelled: SPECIMEN NOT RECEIVED IN LABORATORY Microbiology 05/07 2147 STOOL: Cryptosporidium Antigen - CAN Cancelled: SPECIMEN NOT RECEIVED IN LABORATORY 05/07 2147 STOOL: Giardia Antigen (SAMUEL) - CAN Cancelled: SPECIMEN NOT RECEIVED IN LABORATORY 05/07 2147 STOOL: Clostridium difficile Toxin A & B - CAN Cancelled: SPECIMEN NOT RECEIVED IN LABORATORY 05/07 2147 STOOL: Stool Culture - CAN Cancelled: SPECIMEN NOT RECEIVED IN LABORATORY 05/06 1645 STOOL: Cryptosporidium Antigen - CAN Cancelled: SPECIMEN NOT RECEIVED IN LABORATORY 05/06 164 STOOL: Giardia Antigen (SAMUEL) - CAN Cancelled: SPECIMEN NOT RECEIVED IN LABORATORY 05/06 164 STOOL: Clostridium difficile Toxin A & B - CAN Cancelled: SPECIMEN NOT RECEIVED IN LABORATORY 05/06 164 STOOL: Stool Culture - CAN Cancelled: SPECIMEN NOT RECEIVED IN LABORATORY 05/05 172 BLOOD: Blood Culture - RES 05/05 171 BLOOD: Blood Culture - RES 05/05 1625 STOOL: Clostridium difficile Toxin A & B - CAN Cancelled: SPECIMEN NOT RECEIVED IN LABORATORY 05/05 1624 STOOL: Stool Culture - CAN Cancelled: SPECIMEN NOT RECEIVED IN LABORATORY Vital Signs Date Time Temp Pulse Resp B/P B/P Pulse O2 O2 Flow FiO2 Mean Ox Delivery Rate 05/08 0932 Nasal 2.0L Cannula 05/08 0901 Nasal 2.0L Cannula 05/08 0853 76 140/96 05/08 0845 76 140/96 05/08 0712 98.0 61 18 144/104 95 Nasal Cannula 05/07 2342 97.5 68 18 143/81 96 Room Air 05/07 1601 70 146/84 05/07 1514 97.9 71 20 160/100 95 Room Air
[2017-05-08 13:57] VITALS: BP 140/96
[2017-05-08 14:21] VITALS: BP 128/86
--- NOTE | 2017-05-09 14:11 | PN- Housestaff ---
Assessment/Plan Assessment: A: Mr. 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 Plan: #Acute kidney injury; likely secondary to dehydration in the setting of loose watery stools. Lactic acid 1.8 -> 0.9 Ct abd/pelvis:No acute intra-abdominal or pelvic findings. Stable appearance of hepatic cysts. Cholelithiasis without CT evidence for acute cholecystitis. IVC filter in place. - Unable to send c. difficile, and stool cultures as patient no longer having diarrhea. - PT evaluation; would probably need STR placement on discharge.(Nursing staff in the ED tried to ambulate and weight-bear patient however he required significant assistance from getting up out of bed to a sitting position, patient has had significant diminished baseline function). #new rash on chest and lateral abdomens Possibly reaction due to reaction of ekg pad placements -cont steroid cream and monitor #One episode of chest discomfort CXR:Low lung volumes. Limited exam. No convincing acute cardiopulmonary process. EKG reveals sinus rhythm with PAC Spoke to cardiology Trops <.01 x2 -continue to monitor #shoudler subluxation CXR: There is mild superior subluxation of the left glenohumeral joint. -cont to monitor -follow outpatient # History of CVA/PVD/DVT INR supratherapeutic 3.06 -give 2mg coumadin today. visit pcp in 2-3 days to readjust coumadin dose. - Daily INR and dose Coumadin accordingly. #History of seizures - Continue Keppra. #History of hypertension; -hold antihypertensives for now in the setting of hypotension. - Restart tomorrow depending on blood pressure. #History of GERD, depression, hyperlipidemia and hypothyroidism - We'll continue famotidine, Pepcid, Lexapro, simvastatin and levothyroxine. #DVT prophylaxis -warfarin #FULL CODE
== END 2017-05-08 16:21 | DRG 683 ==
LOC: ERH 16:00 → ERHI 20:26 → 2NB 20:26 → ENRESERV 22:37 → EDBEDREQ 23:53 → 2NB 05-06 00:37 → ENPENDDIS 05-08 11:27 → 2NB 05-08 16:21
PROVIDERS: Physician Assistant; Student in an Organized Health Care Education/Training Program
DX: N17.9 Acute kidney failure, unspecified (principal); E87.2 Acidosis; I95.9 Hypotension, unspecified; I69.354 Hemiplegia and hemiparesis following cerebral infarction affecting left non-dominant side; E86.0 Dehydration; Z91.81 History of falling; S43.082A Other subluxation of left shoulder joint, initial encounter; T45.515A Adverse effect of anticoagulants, initial encounter; I10 Essential (primary) hypertension; K52.9 Noninfective gastroenteritis and colitis, unspecified; E80.6 Other disorders of bilirubin metabolism; E78.5 Hyperlipidemia, unspecified; G40.909 Epilepsy, unspecified, not intractable, without status epilepticus; E03.9 Hypothyroidism, unspecified; Z79.01 Long term (current) use of anticoagulants; I73.9 Peripheral vascular disease, unspecified; W18.39XA Other fall on same level, initial encounter; Y93.E1 Activity, personal bathing and showering; Y92.091 Bathroom in other non-institutional residence as the place of occurrence of the external cause; K21.9 Gastro-esophageal reflux disease without esophagitis; F32.9 Major depressive disorder, single episode, unspecified
CPT/HCPCS: 2NBSP; ERO; 36415; 71046; 73030-LT; 74176; 82436; 87040; 87045; 87328; 87329; 93005; 93010; 96361; 96374; 97110-GO; 97161-GP; 97530-GO; J0131; J2405; J7042

== ENCOUNTER 2017-06-21 12:12 | Inpatient (IN) | payer OTHER, MEDICARE ==
[~2017-06-21] VITALS: Ht 185.4 cm; Wt 102.7 kg
[~2017-06-21 12:12] MED LIST changes: +MULTIVITAMINS1 EAC9 PO; +POLYETHYLENE G255 GM PO
--- NOTE | 2017-06-21 12:23 | ED GENERAL ADULT ---
History of Present Illness General Chief Complaint: Abdominal Pain/Flank Pain Stated Complaint: BIBA FLANK PAIN Source: patient Exam Limitations: no limitations Vital Signs & Intake/Output Vital Signs & Intake/Output Vital Signs Date Time Temp Pulse Resp B/P B/P Pulse O2 O2 Flow FiO2 Mean Ox Delivery Rate 06/24 1440 97.4 71 20 122/83 97 Room Air / 0915 98.4 70 20 142/92 /04 0915 98.4 70 20 142/92 / 0915 98.4 70 20 142/92 /04 0628 98.4 70 20 142/92 93 Room Air 06/23 2221 98.7 75 20 137/85 94 ED Intake and Output 06/24 0000 06/23 1200 Intake Total 1696 720 Output Total 1850 300 Balance -154 420 Intake, IV 1056 600 Intake, Oral 640 120 Number 0 Bowel Movements Output, Urine 1850 300 Patient 216 lb Weight Allergies Coded Allergies: Iodinated Contrast- Oral and IV Dye (UNKNOWN 11/30/16) Penicillins (UNKNOWN 11/30/16) bacitracin (PER PT EYE OINTMENT -DOES NOT REMEMBER REACTION 05/05/17) Reconcile Medications Amlodipine (Norvasc) 2.5 MG TABLET 1 TAB PO DAILY HEART (Reported) Escitalopram Oxalate (Lexapro) 20 MG TABLET 1 TAB PO DAILY DEPRESSION ( Reported) Famotidine 20 MG TABLET 1 TAB PO DAILY GI (Reported) Levetiracetam (Keppra) 500 MG TABLET 1 TAB PO BID SEIZURES (Reported) Levothyroxine Sodium 125 MCG TABLET 1 TAB PO DAILY AC THYROID (Reported) Linaclotide (Linzess) 290 MCG CAPSULE 1 CAP PO DAILY BOWEL (Reported) Lisinopril (Prinivil) 5 MG TABLET 1 TAB PO DAILY BP (Reported) Melatonin 5 MG TABLET 1 TAB PO QPM SLEEP (Reported) Multiple Vitamin (Multivitamins) 1 EACH TABLET 1 TAB PO DAILY SUPPLEMENT ( Reported) Simvastatin (Zocor*) 20 MG TABLET 1 TAB PO QPM CHOLESTEROL (Reported) Tamsulosin HCl (Flomax) 0.4 MG CAP.ER.24H 2 CAP PO DAILY PROSTATE (Reported) Warfarin Sodium (Coumadin) 7.5 MG TABLET 1 TAB PO 1700 BLOOD THINNER ( Reported) Triage Note: PT STATES HE IS HAVING PAIN IN HIS LEFT FLANK AREA RADIATING INTO HIS RIBS. PT STATES THIS PAIN IS NOTHING NEW FOR HIM THAT IT BEGAN 10 YEARS AGO AFTER HIS STOKE IN 2007. PT STATES HE WENT TO REHAB FOR IT IN [place] AND WAS RELEASED 6 WEEKS AGO. PT STATES HE HAS BEEN DOING HIS EXCERCISES AT HOME BUT HIS HOME HEALTH AIDE DOESN'T BELIEVE HIM. PT STATES THE PAIN CAME BACK YESTERDAY. PT STATES HE WOULD NOT HAVE COME FOR THIS PAIN BUT HIS HOME HEALTH AIDE CALLED 911. Triage Nurses Notes Reviewed? yes Onset: Gradual Duration: worse persistent since (10 years) Timing: recent history Injury Environment: home Severity: moderate Severity Numbers: 5 Modifying Factors: Improves With: immobilization. Worsens With: movement. HPI: Patient is a 67-year-old male presenting to the emergency Department chief complaint of left-sided flank pain and left rib pain that's been going on for several years intermittently worse with past couple days. Denies fevers or chills. Denies urinary frequency urgency or dysuria. Denies change in bowel or bladder function. Has been taking Tylenol home with some relief. Has not taken any Tylenol today. Nothing seems to make symptoms better or worse. Pain is achy in nature and nonradiating. Denies any rashes. Patient does report intermittent cough but no sputum production. (Alanna Anglin) Past History Travel History Traveled to [place] past 21 day No Medical History Any Pertinent Medical History? see below for history Neurological: seizure, CVA-L SIDED PARLAYSIS EENT: NONE Cardiovascular: hypertension, hyperlipidemia, PVD Respiratory: NONE Gastrointestinal: NONE Hepatic: NONE Renal: NONE Musculoskeletal: NONE Psychiatric: NONE Endocrine: hypothyroidism Blood Disorders: NONE Cancer(s): NONE History of MRSA: No History of VRE: No History of CDIFF: No Surgical History Surgical History: none Psychosocial History Who do you live with Other (see notes) Services at Home Home Health Aide, Nursing What is your primary language Cuban Tobacco Use: Never used ETOH Use: denies use Illicit Drug Use: denies illicit drug use Family History Family History, If Any: FATHER (PVD, Lung Cancer). . MOTHER (DM, Breast Ca, Stroke). . Hx Contributory? No (Alanna Anglin) Review of Systems Review of Systems Constitutional: Reports: no symptoms. Comments Review of systems: See HPI, All other systems negative. Constitutional, no chills fever or weight loss HEENT: No visual changes no sore throat no congestion Cardiovascular: No palpitation , orthopnea or ankle swelling Skin, no jaundice no rashes Respiratory: No dyspnea sputum or hemoptysis GI: No nausea no vomiting : No dysuria No hematuria Muscle skeletal: no back pain, no neck pain, Neurologic: No increased numbness no confusion Psych: No stress anxiety or depression,. Heme/endocrine: No bruising no bleeding no polyuria or polydipsia Immunology: No splenectomy or history of AIDS (Alanna Anglin) Physical Exam Physical Exam General Appearance: well developed/nourished, no apparent distress, alert, awake , comfortable Comments: Well-developed well-nourished person in no acute distress HEENT: Atraumatic, normocephalic. Neck: Normal inspection Back: Nontender, no CVA tenderness. Cardiovascular: Regular rate and rhythms no murmurs rubs or gallops Respiratory: Chest nontender. No respiratory distress.breath sounds clear to auscultation bilaterally Abdomen: Soft, mildly tender to palpation over the left flank, left rib area , NOrashes noted in this area nondistended, no appreciable organomegaly. Normal bowel sounds. No ascites Extremity: No edema, no calf tenderness to palpation, normal and equal pulses. Neuro: Alert oriented x3,sensory normal, cranial nerves II through XII grossly intact. Residual left upper and lower extremity weakness secondary to old stroke. Skin: No appreciable rash on exposed skin, skin is warm and dry. Psych: Mood and affect is normal, memory and judgment is normal. Core Measures ACS in differential dx? Yes CVA/TIA Diagnosis: No (Alanna Anglin) Core Measures Sepsis Present: Yes Sepsis Focused Exam Completed? Yes (Judith REINA,Nilson) Progress Differential Diagnoses I considered the following diagnoses in my evaluation of the patient: ACS, pneumonia, bronchitis, muscle strain, rib contusion, diverticulitis, diverticulosis, INTRABDOMINAL INFECTION, CHOLECYSTITIS, CHOLANGITIS, PANCREATITIS,UTI, PYELO, RENAL STONE/COLIC Plan of Care: Orders Procedure Date/time Status Nothing by Mouth 06/25 B Active PARTIAL THROMBOPLASTIN TIME 06/25 599 Active PROTHROMBIN TIME 06/25 599 Active HEPATIC FUNCTION PANEL 06/25 599 Active CBC WITHOUT DIFFERENTIAL 06/25 599 Active BASIC ELECTROLYTES PLUS BUN&CR 03/05 0600 Active Regular Diet 06/24 L Active PARTIAL THROMBOPLASTIN TIME 06/24 0700 Complete PROTHROMBIN TIME 06/24 0700 Complete Diet Message 06/24 UNK Active PARTIAL THROMBOPLASTIN TIME 06/23 2300 Complete Heparin Drip- General Anticoag 06/23 2220 Active Hemoccult 06/23 UNK Active Current Medications Sig/Miladis Start time Last Medication Dose Stop Time Status Admin Dextrose/Sodium 1,000 ML Q13H 06/25 0600 AC Chloride (D5W-1/2 Normal Saline 1000ML) Heparin Sodium 25,000 UNIT Q24H 06/23 1415 AC 06/24 (Porcine) 06/25 0000 1222 (Heparin) Sodium Chloride 500 ML Nystatin 1 EVERETT BID 06/23 0358 AC 06/24 (Mycostatin) 0916 Melatonin 5 MG QPM 06/22 2200 AC 06/23 (Melatonin) 2034 Atorvastatin Calcium 20 MG 1700 06/22 1700 AC 06/23 (Lipitor) 1649 Amlodipine Besylate 2.5 MG DAILY 06/22 1000 AC 06/24 (Norvasc) 0915 Ceftriaxone Sodium 1,000 MG DAILY 06/22 1000 AC 06/24 (Rocephin) 1101 Escitalopram Oxalate 10 MG DAILY 06/22 1000 AC 06/24 (Lexapro) 0915 Famotidine 20 MG DAILY 06/22 1000 AC 06/24 (Pepcid) 0915 Levetiracetam 500 MG BID 06/22 1000 AC 06/24 (Keppra) 0916 Lisinopril 5 MG DAILY 06/22 1000 AC 06/24 (Prinivil) 0915 Multivitamins 1 TAB DAILY 06/22 1000 AC 06/24 Therapeutic 0915 (Theragran-M Vitamins Tabs) Tamsulosin HCl 0.8 MG DAILY 06/22 1000 AC 06/24 (Flomax) 0915 Metronidazole 500 MG IQ8 06/22 0800 AC 06/24 (Flagyl) 0914 N/A 1 UNIT (No Carrier) Levothyroxine Sodium 0.125 MG DAILY AC 06/22 0700 AC 06/24 (Synthroid) 0555 Sodium Chloride 1,000 ML Q13H 06/22 0245 AC 06/23 (Normal Saline 0.9%) 06/25 0000 2035 Acetaminophen 650 MG Q6P PRN 06/22 0130 AC (Tylenol) Morphine Sulfate 2 MG Q6-PRN PRN 06/22 0130 AC 06/24 (MORPHINE SULFATE) 1222 Laboratory Tests 06/24/17 0815: Anion Gap 7, Estimated GFR > 60, BUN/Creatinine Ratio 12.2, Total Bilirubin 1.3, Direct Bilirubin 0.5 H, AST 41, ALT 88 H, Alkaline Phosphatase 107, Total Protein 5.2 L, Albumin 2.5 L, PT 20.5 H, INR 1.87 H, APTT > 120 *H, CBC w Diff NO MAN DIFF REQ, RBC 3.26 L, MCV 91.5, MCH 31.4 H, MCHC 34.4, RDW 14.0, MPV 7.3 L, Gran % 65.2, Lymphocytes % 19.5 L, Monocytes % 6.2, Eosinophils % 8.3 H, Basophils % 0.8, Absolute Granulocytes 2.8, Absolute Lymphocytes 0.8 L, Absolute Monocytes 0.3, Absolute Eosinophils 0.4, Absolute Basophils 0 06/24/17 0600: PT Cancelled, INR Cancelled 06/23/17 2250: APTT 37 Secondary EKG and troponin are unchanged. Patient pain-free after IV Tylenol. Pending CT results. Patient will be signed out to LATOSHA Wong. Patient receiving additional dose of Tylenol for fever, IV fluids initiated. (Amy REINA,Alanna) LATOSHA Reyes sign-up patient to me CT scan currently pending it is noted the patient has elevated liver function tests and bilirubin Patient also noted to have fever Patient is a 67-year-old gentleman with a past medical history significant for CVA 2007 with residual left sided weakness on Coumadin, history of seizures on Keppra, history of hypertension and hyperlipidemia, history of hypothyroidism, GERD It is noted that previous admission of patient's old records that CT scan indicates the patient has a history of cholelithiasis Upon my initial encounter with patient he is resting comfortably however does have right upper quadrant pain on exam, Patient denies any nausea vomiting fever chills or shortness of breath 2 sets of troponins were unremarkable It was noted to me that after I asked patient when the last time he ate he does state that he was fed in the emergency room, this did occur prior to my encounter with the patient Patient is still endorsing pain Patient then had concerns of cholangitis Rocephin Flagyl administered patient was nothing by mouth Ultrasound and CT scan were resulted showing cholelithiasis Discussed admission with Dr. Gutierrez BORREGO and Kiko Edward MD were aware Discussed patient with Dr. Frausto who is in agreement with admission to general medicine Discussed admission with patient was aware No concerns of severe sepsis upon admission Patient's blood pressure has been normotensive fever resolved (Nilson Womack) Diagnostic Imaging: Viewed by Me: CT Scan. Discussed w/RAD: CT Scan. Radiology Impression: PATIENT: DANIS ELDRIDGE PRESENT AGE: 67 PATIENT ACCOUNT NO: [id number] : 50 LOCATION: [facility] ORDERING PHYSICIAN: Alanna REINA SERVICE DATE: 06/21/17 EXAM TYPE: CAT - CT ABD & PELVIS W/O IV CONTRAS EXAMINATION: CT ABDOMEN AND PELVIS WITHOUT CONTRAST CLINICAL INFORMATION: Left flank pain. COMPARISON: 05/05/2017. TECHNIQUE: Contiguous axial thin section helical images of the abdomen and pelvis were performed without oral or IV contrast. The data set was reformatted in the coronal and sagittal planes and reviewed on an independent workstation. DLP: 1335 mGy-cm. FINDINGS: There is atelectasis at the right lung base. The liver is of normal size and attenuation without concerning focal lesions nor intrahepatic biliary ductal dilation. There are several stable low-attenuation lesions within the liver, likely patient care representative of cysts. There are calculi within the gallbladder lumen. There is no wall thickening or discernible pericholecystic fluid. The spleen, pancreas, adrenal glands are unremarkable. Both kidneys are of normal size and attenuation without hydronephrosis or nephrolithiasis. There is bilateral perinephric stranding. An IVC filter is in stable position. There is no abdominal free fluid. There is neither mesenteric nor retroperitoneal lymphadenopathy. Normal unopacified loops of small and large bowel are identified. There is no pelvic free fluid. The urinary bladder is unremarkable. There is neither pelvic nor inguinal lymphadenopathy. Bone windows : Neither sclerotic nor lytic bone lesions are identified. IMPRESSION: Cholelithiasis without evidence of cholecystitis. Bilateral perinephric stranding. Neither hydronephrosis nor nephrolithiasis. DICTATED BY: Danis Tsai MD DATE/TIME DICTATED:06/21/172056 LOBBY ATTENDANT:SHIRA DATE/TIME TRANSCRIBED:03/01/18 / 2057 CONFIDENTIAL, DO NOT COPY WITHOUT APPROPRIATE AUTHORIZATION. <Electronically signed in Other Vendor System> SIGNED BY: Danis Tsai MD 06/21/172110 Initial ED EKG: NSR (83 bpm) Prior EKG: unchanged Repeat EKG: unchanged Hand-Off Endorsed To: Nilson Womack Endorsed Time: 1949 Pending: CT (Alanna Anglin) Differential Diagnoses I considered the following diagnoses in my evaluation of the patient: Differential diagnoses include cholecystitis cholangitis gallstone pancreatitis (Nilson Womack) ED Sepsis Exam Date of Focused Sepsis Exam: 06/21/17 Time of Focused Sepsis Exam: 2099 Sepsis Cardiac Exam: Regular Rate/Rhythm Sepsis Resp Exam: CTA Sepsis Cap Refill Exam: <2 Sec Sepsis Peripheral Pulse Exam: Normal Sepsis Peripheral Pulse Location: Radial Sepsis Skin Color Exam: Normal for Ethnicity Skin Temp/Moisture Exam: Warm/Dry (Nilson Womack) Departure Departure Time of Disposition: 1845 Departure Forms: Customer Survey General Discharge Information (Alanna Anglin) Departure Disposition: STILL A PATIENT Condition: Guarded Clinical Impression Primary Impression: Sepsis Secondary Impressions: Abdominal pain, Cholangitis, Fever Referrals: Vasile Frausto MD (PCP/Family) Admission Note Spoke With: Vasile Frausto MD Documentation of Exam: Documentation of any treatments & extenuating circumstances including Concerns Regarding Discharge (functional status, medication knowledge or non-compliance, living conditions, etc.) that warrant an admission rather than observation: [ Patient requires IV antibiotics repeat labs IV pain medication and close monitoring an MRCP for concerns of cholangitis] (Nilson Womack) PA/BUSINESS DEVELOPMENT REPRESENTATIVE Co-Sign Statement Statement: ED Attending supervision documentation- X I saw and evaluated the patient. I have also reviewed all the pertinent lab results and diagnostic results. I agree with the findings and the plan of care as documented in the PA's/BUSINESS DEVELOPMENT REPRESENTATIVE's documentation. Flank pain, elevated transaminases , + gallstones, likely recently passed stone vs cholecystitis. [] I have reviewed the ED Record and agree with the PA's/BUSINESS DEVELOPMENT REPRESENTATIVE's documentation. [] Additions or exceptions (if any) to the PAs/BUSINESS DEVELOPMENT REPRESENTATIVE's note and plan are summarized below: [] (Harley REEVES,Familia) Critical Care Note Critical Care Note Critical Care Time: 75-104 min (Nilson Womack)
[2017-06-21] MEDS ORDERED: MELATONIN5 M7 PO (12:42)
--- NOTE | 2017-06-21 13:08 | RADIOLOGY REPORT ---
EXAMINATION: CR PORTABLE CHEST CLINICAL INFORMATION: Cough. Rib pain. Rule out pneumonia. COMPARISON: Several prior chest x-rays, most recent of which is dated 05/05/2017. TECHNIQUE: Portable AP semierect view of the chest was obtained. FINDINGS: Again, evaluation is limited by patient positioning and rotation. Cardiomediastinal silhouette is unchanged from prior exam with ectasia and tortuosity of the aorta again noted. Low lung volumes are seen without focal pulmonary process noted. Diffuse osteopenia is seen. There is degenerative change in the left shoulder joint. IMPRESSION: Limited study, but without interval change from prior exam. No definite acute cardiopulmonary process seen.
[2017-06-21 14:02] LABS: ABSOLUTE BASOPHIL COUNT 0 /CUMM (0.0-0.2); ABSOLUTE EOSINOPHIL COUNT 0.1 /CUMM (0.0-0.7); ABSOLUTE GRANULOCYTE CT 7.7 /CUMM (1.4-6.5); ABSOLUTE LYMPH COUNT 0.6 /CUMM (1.2-3.4); ABSOLUTE MONOCYTE COUNT 0.7 /CUMM (0.10-0.60); BASOPHIL % 0.2 % (0.0-2.0); EOSINOPHIL % 0.6 % (0-5); HEMATOCRIT 36.3 % (42-52); MEAN CORPUSCULAR HGB CONC 34.5 G/DL (33.0-37.0); MEAN CORPUSCULAR VOLUME 89.8 FL (80.0-94.0); MEAN PLATELET VOLUME 7.6 FL (7.4-10.4); PLATELET COUNT 130 /CUMM (130-400); RBC DISTRIBUTION WIDTH 13.4 % (11.5-14.5); RED BLOOD CELL CT 4.05 /CUMM (4.70-6.10); WHITE BLOOD CELL COUNT 9.1 /CUMM (4.8-10.8)
[2017-06-21 14:27] LABS: GRANULOCYTE % 84.9 % (42.2-75.2)
--- NOTE | 2017-06-21 21:11 | CT SCAN REPORT ---
EXAMINATION: CT ABDOMEN AND PELVIS WITHOUT CONTRAST CLINICAL INFORMATION: Left flank pain. COMPARISON: 05/05/2017. TECHNIQUE: Contiguous axial thin section helical images of the abdomen and pelvis were performed without oral or IV contrast. The data set was reformatted in the coronal and sagittal planes and reviewed on an independent workstation. DLP: 1335 mGy-cm. FINDINGS: There is atelectasis at the right lung base. The liver is of normal size and attenuation without concerning focal lesions nor intrahepatic biliary ductal dilation. There are several stable low-attenuation lesions within the liver, likely fraud representative of cysts. There are calculi within the gallbladder lumen. There is no wall thickening or discernible pericholecystic fluid. The spleen, pancreas, adrenal glands are unremarkable. Both kidneys are of normal size and attenuation without hydronephrosis or nephrolithiasis. There is bilateral perinephric stranding. An IVC filter is in stable position. There is no abdominal free fluid. There is neither mesenteric nor retroperitoneal lymphadenopathy. Normal unopacified loops of small and large bowel are identified. There is no pelvic free fluid. The urinary bladder is unremarkable. There is neither pelvic nor inguinal lymphadenopathy. Bone windows: Neither sclerotic nor lytic bone lesions are identified. IMPRESSION: Cholelithiasis without evidence of cholecystitis. Bilateral perinephric stranding. Neither hydronephrosis nor nephrolithiasis.
--- NOTE | 2017-06-21 22:06 | ULTRASOUND REPORT ---
EXAMINATION: ABDOMINAL ULTRASOUND LIMITED CLINICAL INFORMATION: Pain. COMPARISON: Same day abdominal and pelvic CT. TECHNIQUE: Real-time imaging of the right upper quadrant abdominal viscera. FINDINGS: PANCREAS: The visualized pancreatic head and body are normal in appearance. The remainder of the pancreas is obscured from visualization by the overlying bowel gas. LIVER: The liver is of overall normal size and echogenicity. Evaluation is limited secondary to overlying bowel gas. GALLBLADDER: There are calculi within the gallbladder lumen. There is mild gallbladder wall edema. There is no pericholecystic fluid. COMMON BILE DUCT: Normal in caliber measuring 0.5 cm in diameter. RIGHT KIDNEY: Normal. No hydronephrosis. No renal calculi or focal parenchymal lesions. The kidney measures 12.6 cm in maximum dimension. FREE FLUID: None. IMPRESSION: Cholelithiasis with mild gallbladder wall edema. No pericholecystic fluid.
[2017-06-21 22:54] LABS: PT 27.1 SEC (9.4-12.5); PTT 40 SEC (25-37)
--- NOTE | 2017-06-22 00:39 | History & Physical ---
See Addendum Sharda Reyes MD 06/22/17 0038: General Information and HPI MD Statement: I have seen and personally examined NUBIA PAGAN and documented this H&P. 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 The patient states that the pain is more like a pressure. He states that it started yesterday and continued into the night. He states that it is not worse on movement or breathing. He states that he took Advil which helped "a little". Patient states that he had similar pain 6 weeks ago and also 10 years ago during his stroke. 6 weeks ago after using the toilet, the patient felt lightheaded, got up and reportedly fell into the bathtub. He was admitted to the hospital for acute kidney injury likely due to dehydration in the setting of recent diarrheal illness with hypotension. He was discharged to [facility] and had physical therapy, discharged from there about a month ago. Now, the patient also complains of an intermittent cough, nonproductive. Additionally he complains of recent hematuria. He denies subjective fever, chills, diaphoresis, urinary urgency, frequency, dysuria, nausea, vomiting, change in bowel habits, skin changes. His only recent medication changes for MiraLAX to trulance. Of note, the patient did not himself call an ambulance. His home health aide that comes every day called for his complaints of pain. As per the home health aide, he has not been doing his physical therapy exercises. The patient lives alone on the ground floor, uses a walker for ambulation. The patient does not smoke, drink, do drugs including marijuana. Patient has no past surgical history. He had a colonoscopy done 10 years ago which was negative for any pathology. The patient's primary care physician is Dr. Frausto. The patient most recently had an echocardiogram in 2012 which showed stage I diastolic dysfunction and a normal ejection fraction. Family history of peripheral vascular disease in the father and diabetes, breast cancer, stroke in his mother. Allergies/Medications Allergies: Coded Allergies: Iodinated Contrast- Oral and IV Dye (UNKNOWN 11/30/16) Penicillins (UNKNOWN 11/30/16) bacitracin (PER PT EYE OINTMENT -DOES NOT REMEMBER REACTION 05/05/17) Home Med list Amlodipine (Norvasc) 2.5 MG TABLET 1 TAB PO DAILY HEART (Reported) Escitalopram Oxalate (Lexapro) 20 MG TABLET 1 TAB PO DAILY DEPRESSION ( Reported) Famotidine 20 MG TABLET 1 TAB PO DAILY GI (Reported) Levetiracetam (Keppra) 500 MG TABLET 1 TAB PO BID SEIZURES (Reported) Levothyroxine Sodium 125 MCG TABLET 1 TAB PO DAILY AC THYROID (Reported) Linaclotide (Linzess) 290 MCG CAPSULE 1 CAP PO DAILY BOWEL (Reported) Lisinopril (Prinivil) 5 MG TABLET 1 TAB PO DAILY BP (Reported) Melatonin 5 MG TABLET 1 TAB PO QPM SLEEP (Reported) Multiple Vitamin (Multivitamins) 1 EACH TABLET 1 TAB PO DAILY SUPPLEMENT ( Reported) Simvastatin (Zocor*) 20 MG TABLET 1 TAB PO QPM CHOLESTEROL (Reported) Tamsulosin HCl (Flomax) 0.4 MG CAP.ER.24H 2 CAP PO DAILY PROSTATE (Reported) Warfarin Sodium (Coumadin) 7.5 MG TABLET 1 TAB PO 1700 BLOOD THINNER ( Reported) Compliance With Home Meds: FAIR Past History Travel History Traveled to [place] past 21 day No Medical History Neurological: seizure, CVA-L SIDED PARLAYSIS EENT: NONE Cardiovascular: hypertension, hyperlipidemia, PVD Respiratory: NONE Gastrointestinal: NONE Hepatic: NONE Renal: NONE Musculoskeletal: NONE Psychiatric: NONE Endocrine: hypothyroidism Blood Disorders: NONE Cancer(s): NONE History of MRSA: No History of VRE: No History of CDIFF: No Surgical History Surgical History: none Past Family/Social History Family History Relations & Conditions if any FATHER (PVD, Lung Cancer). . MOTHER (DM, Breast Ca, Stroke). . Psychosocial History Services at Home: Home Health Aide, Nursing ETOH Use: denies use Illicit Drug Use: denies illicit drug use Functional Ability Ambulation: walker Review of Systems Review of Systems Constitutional: Reports: weakness. EENTM: Reports: no symptoms. Cardiovascular: Reports: chest pain, peripheral edema. Respiratory: Reports: cough. GI: Reports: abdominal pain. Genitourinary: Reports: hematuria. Musculoskeletal: Reports: no symptoms. Skin: Reports: no symptoms. Neurological/Psychological: Reports: no symptoms. Hematologic/Endocrine: Reports: no symptoms. Exam & Diagnostic Data Last 24 Hrs of Vital Signs/I&O Vital Signs Date Time Temp Pulse Resp B/P B/P Pulse O2 O2 Flow FiO2 Mean Ox Delivery Rate 06/22 0218 97.7 80 18 114/80 92 Room Air 06/22 0017 98.6 82 18 123/84 94 Room Air 06/21 2003 99.6 06/21 1908 101.7 06/21 1829 101.7 86 20 130/90 97 Room Air 06/21 1411 98.8 78 18 138/82 100 Room Air 06/21 1218 98 06/21 1217 98.7 84 18 131/86 98 Room Air Intake & Output 06/22 0800 06/22 0000 06/21 1600 Intake Total 1100 0 Output Total Balance 1100 0 Intake, IV 1100 Intake, Oral 0 Patient 217 lb 217 lb Weight Weight Reported by Patient Measurement Method Physical Exam General Appearance Alert, Oriented X3, Cooperative, No Acute Distress Skin No Rashes, No Breakdown, CHRONIC VENOUS STASIS CHANGES IN LOWER EXT Skin Temp/Moisture Exam: Warm/Dry Sepsis Skin Exam (color): Normal for Ethnicity HEENT Atraumatic, PERRLA, EOMI, Mucous Membr. moist/pink Neck Supple Cardiovascular Regular Rate, Normal S1, Normal S2, No Murmurs Lungs Clear to Auscultation, Normal Air Movement Abdomen Normal Bowel Sounds, Soft, No Hepatospenomegaly, No Masses, TENDERNESS TO PALPATION THROUGHOUT Neurological Normal Speech, Sensation Intact Extremities No Clubbing, Normal Pulses, No Tenderness/Swelling, 1+ PITTING EDEMA AND CHRONIC VENOUS STASIS CHANGES LOWER EXT Vascular Normal Pulses, Pulses Symmetrical Last 24 Hrs of Labs/Santosh: Laboratory Tests 06/22/17 0330: Lactic Acid Pending 06/22/17 0023: Lactic Acid 0.7 06/21/17 2225: PT 27.1 H, INR 2.61 H, APTT 40 H 06/21/17 1756: Troponin I < 0.01 06/21/17 1600: Urinalysis LIGHT H, Urine Color BROWN H, Urine Clarity HAZY H, Urine pH 5.5, Ur Specific [place] 1.025, Urine Protein 30 H, Urine Ketones TRACE H, Urine Nitrite POS H, Urine Bilirubin POS@ICTO H, Urine Urobilinogen >=8.0 H, Ur Leukocyte Esterase NEG, Ur Microscopic SEDIMENT EXAMINED, Urine WBC RARE, Ur Epithelial Cells FEW, Urine Bacteria RARE H, Urine Hemoglobin NEG, Urine Glucose NEG 06/21/17 1349: Anion Gap 9, Estimated GFR > 60, BUN/Creatinine Ratio 14.5, Glucose 118 H, Calcium 8.9, Total Bilirubin 5.1 H, Direct Bilirubin 2.6 H, AST 159 H, ALT 200 H, Alkaline Phosphatase 100, Troponin I < 0.01, Total Protein 6.0 L, Albumin 3.3 L, Globulin 2.7, Albumin/Globulin Ratio 1.2, Amylase < 30 L, Lipase 32, CBC w Diff NO MAN DIFF REQ, RBC 4.05 L, MCV 89.8, MCH 31.0, MCHC 34.5, RDW 13.4, MPV 7.6, Gran % 84.9 H, Lymphocytes % 6.4 L, Monocytes % 7.9, Eosinophils % 0.6, Basophils % 0.2, Absolute Granulocytes 7.7 H, Absolute Lymphocytes 0.6 L, Absolute Monocytes 0.7 H, Absolute Eosinophils 0.1, Absolute Basophils 0 Microbiology 06/21 2234 BLOOD: Blood Culture - RECD 06/21 223 NASOPHARYN: Influenza Virus A & B Rapid Smear - COMP 06/21 2225 BLOOD: Blood Culture - RECD 06/21 1600 URINE ROUT: Urine Culture - RECD Assessment/Plan Assessment: Patient is a 67 year old male with a PMH significant for seizure disorder on Keppra, 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 The patient had a similar pain 10 years ago when he had a stroke, and also 6 weeks ago when he was admitted for LALO secondary to diarrheal illness causing hypotension. At the time the patient was worked up for cardiac disease which was negative. Patient also admitted to new onset nonproductive cough and recent hematuria. He denies any new onset weakness. Physical exam is pertinent for epigastric pain and left flank pain on palpation with lower extremity edema. The patient also notes some on and off right-sided abdominal pain on palpation. The patient most recently had an echocardiogram in 2012 which showed stage I diastolic dysfunction and a normal ejection fraction. In the ED, vitals were found to be temperature 98.7 which increased to 101.7 soon after admission, heart rate 86, respiratory rate 20, blood pressure 130/90, 97% oxygen saturation on room air. Labs are pertinent for WBC count of 9.1, hemoglobin 12.5, elevated INR, therapeutic at 2.61, negative lactic acid, total bilirubin of 5.1, direct bilirubin of 2.6, AST 159, ALT 200, troponins negative, amylase and lipase negative, urinalysis showing positive nitrites, protein, bilirubin, but negative leukocyte esterase, hemoglobin, rare bacteria. The color of the urine was brown. EKG showed a QTC of 409, heart rate of 90, extended HI interval of 236. Chest x-ray showed no change from prior exam and no definite acute cardiopulmonary process seen. CT abdomen and pelvis done for his left flank pain showed cholelithiasis without evidence of cholecystitis, bilateral perinephric stranding with neither hydronephrosis nor nephrolithiasis. An ultrasound of the gallbladder showed cholelithiasis with mild gallbladder wall edema and no pericholecystic fluid. In the ED, the patient was started on ceftriaxone and Flagyl. He was given bolus normal saline. He was also given morphine for the pain. Plan Patient is to be admitted to Gen. medical floors for evaluation and treatment of the following: Left flank pain and evidence of UTI on CT exam: Patient was found to have perinephric stranding and positive nitrites and rare bacteria without leukocyte esterase. He was also found to have brown discoloration of the urine but negative hemoglobin on UA. As patient does have seizure disorder, seizure with resulting rhabdomyolysis and injury to the kidney must be considered. However patient's creatinine is 1.1 with a normal GFR. Patient was found to be febrile in the ED. On physical exam he was found to have positive CVA tenderness. -Patient does not meet SIRS criteria -Patient is put on ceftriaxone 1 g daily -Pain pathway with Tylenol and morphine 2 mg every 6 -Normal saline at a rate of 75 Abnormal liver function tests and gallbladder wall edema: Patient found to have elevated bilirubin and liver enzymes. Questionable icterus. He is found on CT scan to have gallbladder wall edema and cholelithiasis. He is febrile but does not meet SIRS criteria. -GI consult for potential cholangitis/choledocholithiasis and possible MRCP/HIDA -Surgical consult -Patient is on ceftriaxone which could cover any infection and gallbladder and also UTI, and also metronidazole 50 mg every 8 -Blood cultures 2 -Morphine for pain History of CVA, DVT -Patient is on chronic Coumadin 7.5 mg daily -Patient is currently therapeutic, continue current dosing and follow INRs Chronic medical problems -Synthroid for patient's hypothyroidism -Amlodipine 2.5 mg and lisinopril 5 mg daily for patient's hypertension -Pepcid for patient's GERD -Lexapro for depression/anxiety -Keppra 500 twice a day for seizure disorder -Flomax for BPH -Lipitor 20 mg for hyperlipidemia Patient is full code Patient is nothing by mouth for potential procedure in the morning Mechanical prophylaxis and anticoagulation with Coumadin Seizure precautions As Ranked By This Provider Problem List: 1. Abdominal pain 2. Flank pain 3. Fever 4. Weakness Core Measures/Misc (01/07) Acute Coronary Syndrome ACS Diagnosis: No Congestive Heart Failure Congestive Heart Failure Diagnosis No Cerebrovascular Accident CVA/TIA Diagnosis: No VTE (View Protocol) VTE Risk Factors Acute Medical Illness No Mechanical VTE Prophylaxis d/t N/A MechProphylax Ordered No VTE Pharm Prophylaxis d/t Other (pt on coumadin) Sepsis (View protocol) Sepsis Present: No Swetha Toscano 06/22/17 0058: Resident Review Statement Resident Statement: examined this patient, discussed with quality assurance intern, agreed with quality assurance intern, reviewed images Other Findings: Mr. Pagan is a 67 yo man with PMHx. of for CVA 2007 with residual left sided weakness on Coumadin, history of seizures on Keppra, Hx. of A. fib, history of hypertension and hyperlipidemia, history of hypothyroidism, GERD recently admitted to for Gastroenteritis discharge from [facility] about 6 weeks ago presented to ED with a c/o epigastric pain and left flank pain. He was febrile at ED, Tmax 101.7. On examination he was noted to be pale with mild icterus, epigastric tenderness, +ve CVA B/L. Positive Xavier. Labs pertinent to elevated total and direct bilirubin and transaminitis, his UA: is hazy bloody with +ve esterase and nitrite. Imaging is pertinent for cholelithiasis with no cholecystitis, bilateral pernephric stranding with no hydronephrosis or nephrolithiasis. Abdominal US shocholelithiasis with mild GB edema, with no pericholecystic fluid. Assessment: #Acute cholangitis: Patient has fever, RUQ tenderness, Jaundice however he is mentating well and hemodynamically stable: * GI consult at am * Surgical consult at am * He was given flagyl and ceftrixone at ED will continue that * Blood Cx. X2 sent by ED, f/u the result * There is no evidence of dilated CBD. At am he needs MRCP (As bile duct stone is suspected given cholelithiais BUT no dilated CBD) or HIDA * Pain management with IV morphine * Will repeat CBC, BEP, LFT at am #Pyelonephritis vs UTI: Patient has positive CVA tenderness, CT-showed bilateral perinephric stranding, however there is no hydronephrosis. * He is covered with IV Ceftriaxone * Will send urine Cx * Hydration with IV NS #Hx. of A.fib/ stroke/ DVT: currently in SR, EKG is pertinent to 1st degree AV block * Will continue with home dose of Coumadin, 7.5 mg daily * Will check INR at am History of seizures * Continue Keppra 500 mg twice a day * Maintain seizures and aspiration precautions * History of hypertension and hyperlipidemia * Will continue home meds, Amlodipine and statin Pain management pathway DVT prophylaxis with Coumadin Patient is full code
[2017-06-22 02:18] VITALS: BP 114/80
[2017-06-22 06:53] VITALS: BP 112/78
[2017-06-22 08:30] LABS: PT 35.6 SEC (9.4-12.5)
[2017-06-22 09:24] LABS: ABSOLUTE BASOPHIL COUNT 0 /CUMM (0.0-0.2); ABSOLUTE EOSINOPHIL COUNT 0.3 /CUMM (0.0-0.7); ABSOLUTE GRANULOCYTE CT 5.7 /CUMM (1.4-6.5); ABSOLUTE LYMPH COUNT 0.6 /CUMM (1.2-3.4); ABSOLUTE MONOCYTE COUNT 0.5 /CUMM (0.10-0.60); BASOPHIL % 0.2 % (0.0-2.0); EOSINOPHIL % 3.7 % (0-5); GRANULOCYTE % 80.1 % (42.2-75.2); MEAN CORPUSCULAR HGB 31.2 PG (27.0-31.0); MEAN CORPUSCULAR HGB CONC 34.5 G/DL (33.0-37.0); MEAN CORPUSCULAR VOLUME 90.3 FL (80.0-94.0); MEAN PLATELET VOLUME 8.1 FL (7.4-10.4); PLATELET COUNT 106 /CUMM (130-400); RBC DISTRIBUTION WIDTH 13.7 % (11.5-14.5); RED BLOOD CELL CT 3.41 /CUMM (4.70-6.10); WHITE BLOOD CELL COUNT 7.1 /CUMM (4.8-10.8)
[2017-06-22 10:01] LABS: HEMATOCRIT 30.8 % (42-52)
--- NOTE | 2017-06-22 11:15 | Admission Certification ---
Admission Certification Certification Statement - As attending physician, I certify that at the time of - admission, based on clinical presentation, severity of - symptoms, need for further diagnostic testing and - therapeutic interventions, and risk of adverse outcomes - without in-hospital treatment, in my clinical assessment, - this patient requires an acute hospital stay for a minimum - of two nights or longer. I have also considered psychsocial - factors such as support system, advanced age, financial - issues, cognitive issues, and failed out-patient treatments, - past re-admission history, safety of patient, and lack of - compliance as applicable. Specific rationale supporting this admission is: Flank pain and acute cholangitis
--- NOTE | 2017-06-22 11:18 | PN- Att Addend ---
Attending Addendum Attending Brief Note 67-year-old white male with many comorbidities limits home with home care came to the emergency room complaining of this flank pain and maybe substernal pain. His white count is within normal limits chest x-ray showed no acute abnormalities had a CAT scan of the abdomen and ultrasound of the abdomen shows cholelithiasis once admitted he developed a fever. He has had surgical and GI evaluations patient will have an MRCP this morning and depending on the results we will know what the plan of treatment would be Current Medications Sig/Miladis Start time Last Medication Dose Route Stop Time Status Admin Acetaminophen 650 MG Q6P PRN 06/22 0130 AC PO Acetaminophen 0 .STK-MED ONE 06/21 1911 DC PO Acetaminophen 650 MG ONCE ONE 06/21 1900 DC 06/21 PO 06/21 190 1908 Acetaminophen 1,000 MG ONCE ONE 06/21 1830 DC 06/21 N/A 1 UNIT IV 06/21 1844 1230 Acetaminophen 0 .STK-MED ONE 06/21 1228 DC IV Amlodipine Besylate 2.5 MG DAILY 06/22 1000 AC PO Atorvastatin Calcium 20 MG 1700 06/22 1700 AC PO Ceftriaxone Sodium 1,000 MG DAILY 06/22 1000 AC IV Ceftriaxone Sodium 0 .STK-MED ONE 06/21 2313 DC .ROUTE Ceftriaxone Sodium 1,000 MG ONCE ONE 06/21 2130 DC 06/21 IV 06/21 213 2300 Escitalopram Oxalate 10 MG DAILY 06/22 1000 AC PO Famotidine 20 MG DAILY 06/22 1000 AC PO Levetiracetam 500 MG BID 06/22 1000 AC PO Levothyroxine Sodium 0.125 MG DAILY AC 06/22 0700 AC 06/22 PO 0727 Lisinopril 5 MG DAILY 06/22 1000 AC PO Melatonin 5 MG QPM 06/22 2200 AC PO Metronidazole 500 MG IQ8 06/22 0800 AC 06/22 N/A 1 UNIT IV 1022 Metronidazole 500 MG ONCE ONE 06/21 2130 DC 06/21 N/A 1 UNIT IV 06/21 2229 2310 Morphine Sulfate 2 MG Q6-PRN PRN 06/22 0130 AC IV Morphine Sulfate 0 .STK-MED ONE 06/21 2322 DC .ROUTE Morphine Sulfate 4 MG ONCE ONE 06/21 2315 DC 06/21 IV 06/21 2316 2320 Multivitamins 1 TAB DAILY 06/22 1000 AC Therapeutic PO Sodium Chloride 1,000 ML Q13H 06/22 0245 AC 06/22 IV 0308 Sodium Chloride 1,000 ML BOLUS ONE 06/22 1999 DC 06/21 IV 06/21 Tamsulosin HCl 0.8 MG DAILY 06/22 1000 AC PO Warfarin Sodium 7.5 MG 1700 06/22 1700 CAN PO Laboratory Tests 06/22/17 0724: Anion Gap 9, Estimated GFR > 60, BUN/Creatinine Ratio 13.3, Total Bilirubin 3.8 H, Direct Bilirubin 1.9 H, AST 61 H, ALT 122 H, Alkaline Phosphatase 74, Total Protein 4.9 L, Albumin 2.4 L, PT 35.6 H, INR 3.43 H, CBC w Diff NO MAN DIFF REQ, RBC 3.41 L, MCV 90.3, MCH 31.2 H, MCHC 34.5, RDW 13.7, MPV 8.1, Gran % 80.1 H, Lymphocytes % 8.7 L, Monocytes % 7.3, Eosinophils % 3.7, Basophils % 0.2, Absolute Granulocytes 5.7, Absolute Lymphocytes 0.6 L, Absolute Monocytes 0.5, Absolute Eosinophils 0.3, Absolute Basophils 0 06/22/17 0330: Lactic Acid 0.6 L 06/22/17 0023: Lactic Acid 0.7 06/21/17 2225: PT 27.1 H, INR 2.61 H, APTT 40 H 06/21/17 1954: Virus Culture Pending 06/21/17 1756: Troponin I < 0.01 06/21/17 1600: Urinalysis LIGHT H, Urine Color BROWN H, Urine Clarity HAZY H, Urine pH 5.5, Ur Specific [place] 1.025, Urine Protein 30 H, Urine Ketones TRACE H, Urine Nitrite POS H, Urine Bilirubin POS@ICTO H, Urine Urobilinogen >=8.0 H, Ur Leukocyte Esterase NEG, Ur Microscopic SEDIMENT EXAMINED, Urine WBC RARE, Ur Epithelial Cells FEW, Urine Bacteria RARE H, Urine Hemoglobin NEG, Urine Glucose NEG 06/21/17 1349: Anion Gap 9, Estimated GFR > 60, BUN/Creatinine Ratio 14.5, Glucose 118 H, Calcium 8.9, Total Bilirubin 5.1 H, Direct Bilirubin 2.6 H, AST 159 H, ALT 200 H, Alkaline Phosphatase 100, Troponin I < 0.01, Total Protein 6.0 L, Albumin 3.3 L, Globulin 2.7, Albumin/Globulin Ratio 1.2, Amylase < 30 L, Lipase 32, CBC w Diff NO MAN DIFF REQ, RBC 4.05 L, MCV 89.8, MCH 31.0, MCHC 34.5, RDW 13.4, MPV 7.6, Gran % 84.9 H, Lymphocytes % 6.4 L, Monocytes % 7.9, Eosinophils % 0.6, Basophils % 0.2, Absolute Granulocytes 7.7 H, Absolute Lymphocytes 0.6 L, Absolute Monocytes 0.7 H, Absolute Eosinophils 0.1, Absolute Basophils 0 Microbiology 06/21 2230 NASOPHARYN: Influenza Virus A & B Rapid Smear - COMP Vital Signs Date Time Temp Pulse Resp B/P B/P Pulse O2 O2 Flow FiO2 Mean Ox Delivery Rate 06/22 0653 97.9 76 16 112/78 95 Room Air 06/22 0218 97.7 80 18 114/80 92 Room Air 06/22 0017 98.6 82 18 123/84 94 Room Air 06/21 2003 99.6 06/21 1908 101.7 06/21 1829 101.7 86 20 130/90 97 Room Air 06/21 1411 98.8 78 18 138/82 100 Room Air 06/21 1218 98 03 1217 98.7 84 18 131/86 98 Room Air Potassium 3.4 replace
--- NOTE | 2017-06-22 13:34 | MRI REPORT ---
EXAMINATION: MRI ABDOMEN WITHOUT CONTRAST (MRCP) CLINICAL INFORMATION: Evaluate for cholangitis. Abnormal liver function tests. Gallbladder wall edema. COMPARISON: Ultrasound and CT 06/21/2017, and earlier TECHNIQUE: Multiplanar MR images through the abdomen were obtained on a 1.5 [place] MR system without IV contrast. Heavily T2 weighted MRCP sequences of the biliary tree were obtained in multiple planes. FINDINGS: Most of the sequences are limited by extensive patient motion. No IV contrast was administered. LUNG BASES: Small right pleural effusion. There is shift of the heart and mediastinum to the right. LIVER: Grossly normal liver signal with no hepatic steatosis is seen. There are multiple well-circumscribed T2 hyperintense, lobular lesions scattered in the right and left lobes of the liver. These are incompletely evaluated without contrast but most likely represent simple cysts. Mild periportal edema is present. GALLBLADDER: The gallbladder wall is thickened, up to 8-9 mm. There is pericholecystic fluid. There is a 9 mm T2 hypointense round structure adjacent the posterior wall of the mid gallbladder, consistent with a calculus. There are likely tiny dependent calculi in the neck of the gallbladder, not well demonstrated. BILIARY TREE: No intra-hepatic biliary ductal dilation. Extensive motion artifact limits evaluation of the MRCP images. The common bile duct is normal in diameter as visualized, at most 6 mm in diameter. No intraluminal filling defects seen. PANCREAS: The pancreas is normal in appearance. No ductal dilatation, mass or majo-pancreatic fluid seen. SPLEEN: Normal. Normal size. No focal lesion. ADRENAL GLANDS: Normal. No adrenal mass. KIDNEYS AND URETERS: There is bilateral renal cortical thinning. There is a well-circumscribed 7 mm T2 hyperintense likely cyst of the anterior cortex of the lower pole of the left kidney. No hydronephrosis. LYMPHOVASCULAR STRUCTURES: Normal caliber aorta. IVC patent. No pathologically enlarged abdominal or retroperitoneal lymphadenopathy by size criteria. IVC filter was better seen on other imaging modalities. OSSEOUS STRUCTURES: There are degenerative changes of the spine. No ascites. The stomach, small bowel, and colon are nondilated. IMPRESSION: There is cholelithiasis but no choledocholithiasis seen. No intra or extrahepatic biliary ductal dilatation. There is periportal edema. The gallbladder wall is thickened to 8-9 mm with adjacent pericholecystic fluid, suggesting cholecystitis. Multiple well-circumscribed T2 hyperintense lesions in the liver are incompletely evaluated with out IV contrast but most likely represent simple cysts.
[2017-06-22 14:23] VITALS: BP 135/89
--- NOTE | 2017-06-22 14:54 | Cons- Gastroenterology ---
General Information and HPI Consulting Request Date of Consult: 06/22/17 ([facility]/GASTROENTEROLOGY) Requested By: Vasile Frausto MD Reason for Consult: Abnormal liver associated enzymes/hyperbilirubinemia Source of Information: patient, old records History of Present Illness: 67-year-old white male who presented with chronic/recurrent left flank pain, as well as more acute substernal chest pain for one day. This was unaccompanied by nausea or vomiting. 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 He had transient fever in the emergency room last night, but defervesced. There were no associated chills or sweats. The patient has no known history of liver disease. He had a similar episode in 2013 which was treated conservatively and reports a similar episode 6 weeks ago. 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 He is anticoagulated for history of DVT, and CVA. He carries a diagnosis of GERD. At this time the patient is pain-free. There has been no recent change in bowel habits (normal with tendency to constipation), GI bleeding. Last colonoscopy was 10 years ago. Family history is negative for GI malignancy and liver disease. Allergies/Medications Allergies: Coded Allergies: Iodinated Contrast- Oral and IV Dye (UNKNOWN 11/30/16) Penicillins (UNKNOWN 11/30/16) bacitracin (PER PT EYE OINTMENT -DOES NOT REMEMBER REACTION 05/05/17) Home Med List: Amlodipine (Norvasc) 2.5 MG TABLET 1 TAB PO DAILY HEART (Reported) Escitalopram Oxalate (Lexapro) 20 MG TABLET 1 TAB PO DAILY DEPRESSION ( Reported) Famotidine 20 MG TABLET 1 TAB PO DAILY GI (Reported) Levetiracetam (Keppra) 500 MG TABLET 1 TAB PO BID SEIZURES (Reported) Levothyroxine Sodium 125 MCG TABLET 1 TAB PO DAILY AC THYROID (Reported) Linaclotide (Linzess) 290 MCG CAPSULE 1 CAP PO DAILY BOWEL (Reported) Lisinopril (Prinivil) 5 MG TABLET 1 TAB PO DAILY BP (Reported) Melatonin 5 MG TABLET 1 TAB PO QPM SLEEP (Reported) Multiple Vitamin (Multivitamins) 1 EACH TABLET 1 TAB PO DAILY SUPPLEMENT ( Reported) Simvastatin (Zocor*) 20 MG TABLET 1 TAB PO QPM CHOLESTEROL (Reported) Tamsulosin HCl (Flomax) 0.4 MG CAP.ER.24H 2 CAP PO DAILY PROSTATE (Reported) Warfarin Sodium (Coumadin) 7.5 MG TABLET 1 TAB PO 1700 BLOOD THINNER ( Reported) Current Medications: Current Medications Sig/Miladis Start time Last Medication Dose Route Stop Time Status Admin Acetaminophen 650 MG Q6P PRN 06/22 0130 AC PO Acetaminophen 0 .STK-MED ONE 06/21 1911 DC PO Acetaminophen 650 MG ONCE ONE 06/21 1900 DC 06/21 PO 06/21 1901 1908 Acetaminophen 1,000 MG ONCE ONE 06/21 1830 DC 06/21 N/A 1 UNIT IV 06/21 1844 1230 Amlodipine Besylate 2.5 MG DAILY 06/22 1000 AC PO Atorvastatin Calcium 20 MG 1700 06/22 1700 AC PO Ceftriaxone Sodium 1,000 MG DAILY 06/22 1000 AC 06/22 IV 1246 Ceftriaxone Sodium 0 .STK-MED ONE 06/21 2313 DC .ROUTE Ceftriaxone Sodium 1,000 MG ONCE ONE 06/21 2130 DC 06/21 IV 06/21 2131 2300 Escitalopram Oxalate 10 MG DAILY 06/22 1000 AC 06/22 PO 1238 Famotidine 20 MG DAILY 06/22 1000 AC PO Levetiracetam 500 MG BID 06/22 1000 AC 06/22 PO 1238 Levothyroxine Sodium 0.125 MG DAILY AC 06/22 0700 AC 06/22 PO 0727 Lisinopril 5 MG DAILY 06/22 1000 AC 06/22 PO 1238 Melatonin 5 MG QPM 06/22 2200 AC PO Metronidazole 500 MG IQ8 06/22 0800 AC 06/22 N/A 1 UNIT IV 1022 Metronidazole 500 MG ONCE ONE 06/21 2130 DC 06/21 N/A 1 UNIT IV 06/21 2229 2310 Morphine Sulfate 2 MG Q6-PRN PRN 06/22 0130 AC IV Morphine Sulfate 0 .STK-MED ONE 06/21 2322 DC .ROUTE Morphine Sulfate 4 MG ONCE ONE 06/21 2315 DC 06/21 IV 06/21 2316 2320 Multivitamins 1 TAB DAILY 06/22 1000 AC 06/22 Therapeutic PO 1246 Sodium Chloride 1,000 ML Q13H 06/22 0245 AC 06/22 IV 0308 Sodium Chloride 1,000 ML BOLUS ONE 06/22 1999 DC 06/21 IV 06/21 Tamsulosin HCl 0.8 MG DAILY 06/22 1000 AC 06/22 PO 1238 Warfarin Sodium 7.5 MG 1700 06/22 1700 CAN PO Past History Travel History Traveled to [place] past 21 day No Medical History Blood Transfusion Hx: No Neurological: seizure, CVA-L SIDED PARLAYSIS EENT: NONE Cardiovascular: hypertension, hyperlipidemia, PVD Respiratory: NONE Gastrointestinal: NONE Hepatic: NONE Renal: NONE Musculoskeletal: NONE Psychiatric: NONE Endocrine: hypothyroidism Blood Disorders: NONE Cancer(s): NONE Surgical History Surgical History: 1 Family History Relations & Conditions If Any: FATHER (PVD, Lung Cancer). . MOTHER (DM, Breast Ca, Stroke). . Psychosocial History Where Do You Live? Home Services at Home: Home Health Aide, Nursing Smoking Status: Former Smoker ETOH Use: denies use Illicit Drug Use: denies illicit drug use Functional Ability Ambulation: walker Review of Systems Review of Systems Constitutional: Reports: fever. Denies: chills. EENTM: Denies: icterus, epistaxis. Cardiovascular: Reports: chest pain. Denies: edema. Respiratory: Denies: cough, hemoptysis, short of breath. GI: Reports: see HPI. Genitourinary: Denies: dysuria, hematuria. Musculoskeletal: Denies: muscle stiffness, neck pain. Skin: Denies: jaundice, lesions. Neurological/Psychological: Reports: pre-existing deficit, weakness. Denies: cognitive dysfunction. Hematologic/Endocrine: Denies: bruising, bleeding. Exam & Diagnostic Data Vital Signs and I&O Vital Signs Date Time Temp Pulse Resp B/P B/P Pulse O2 O2 Flow FiO2 Mean Ox Delivery Rate 06/22 1423 99.3 89 20 135/89 94 Room Air 06/22 1238 97.9 76 16 112/78 06/22 1238 97.9 76 16 112/78 03/ 0653 97.9 76 16 112/78 95 Room Air 06/22 0218 97.7 80 18 114/80 92 Room Air 06/22 0017 98.6 82 18 123/84 94 Room Air 06/21 2002 99.6 06/21 1908 101.7 06/21 1829 101.7 86 20 130/90 97 Room Air Intake & Output 06/22 1600 06/22 0400 06/21 1600 06/21 04006/20 1600 06/20 0400 Intake Total 300 1100 0 Output Total 800 Balance -500 1100 0 Intake, IV 300 1100 Intake, Oral 0 Number 0 Bowel Movements Output, Urine 800 Patient 217 lb 217 lb Weight Weight Reported by Patient Measurement Method Physical Exam: Well-developed, well-nourished male in no apparent distress. Alert and oriented. Sclera are icteric. No oropharyngeal lesions. Neck supple without mass or thyromegaly. Heart regular rhythm. Lungs clear. Abdomen soft, nondistended, mildly tender in the right upper quadrant, without mass, organomegaly. Extremities with trace edema. Skin without lesion, rash, stigmata chronic liver disease. Results Pertinent Lab Results: Laboratory Tests 06/22 06/22 06/22 06/21 0724 0330 0023 2225 Chemistry Sodium (137 - 145 mmol/L) 143 Potassium (3.5 - 5.1 mmol/L) 3.4 L Chloride (98 - 107 mmol/L) 111 H Carbon Dioxide (22 - 30 mmol/L) 24 Anion Gap (5 - 16) 9 BUN (9 - 20 mg/dL) 12 Creatinine (0.7 - 1.2 mg/dL) 0.9 Estimated GFR (>60 ml/min) > 60 BUN/Creatinine Ratio (7 - 25 %) 13.3 Lactic Acid (0.7 - 2.1 mmol/L) 0.6 L 0.7 Total Bilirubin (0.2 - 1.3 mg/dL) 3.8 H Direct Bilirubin (< 0.4 mg/dL) 1.9 H AST (17 - 59 U/L) 61 H ALT (21 - 72 U/L) 122 H Alkaline Phosphatase (< 127 U/L) 74 Total Protein (6.3 - 8.2 g/dL) 4.9 L Albumin (3.5 - 5.0 g/dL) 2.4 L Coagulation PT (9.4 - 12.5 SEC) 35.6 H 27.1 H INR (0.90 - 1.17) 3.43 H 2.61 H APTT (25 - 37 SEC) 40 H Hematology CBC w Diff NO MAN DIFF REQ WBC (4.8 - 10.8 /CUMM) 7.1 RBC (4.70 - 6.10 /CUMM) 3.41 L Hgb (14.0 - 18.0 G/DL) 10.6 L Hct (42 - 52 %) 30.8 L MCV (80.0 - 94.0 FL) 90.3 MCH (27.0 - 31.0 PG) 31.2 H MCHC (33.0 - 37.0 G/DL) 34.5 RDW (11.5 - 14.5 %) 13.7 Plt Count (130 - 400 /CUMM) 106 L MPV (7.4 - 10.4 FL) 8.1 Gran % (42.2 - 75.2 %) 80.1 H Lymphocytes % (20.5 - 51.1 %) 8.7 L Monocytes % (1.7 - 9.3 %) 7.3 Eosinophils % (0 - 5 %) 3.7 Basophils % (0.0 - 2.0 %) 0.2 Absolute Granulocytes (1.4 - 6.5 /CUMM) 5.7 Absolute Lymphocytes (1.2 - 3.4 /CUMM) 0.6 L Absolute Monocytes (0.10 - 0.60 /CUMM) 0.5 Absolute Eosinophils (0.0 - 0.7 /CUMM) 0.3 Absolute Basophils (0.0 - 0.2 /CUMM) 0 06/21 1756 1600 Chemistry Troponin I (<0.11 ng/ml) < 0.01 Serology Virus Culture Pending Urines Urinalysis LIGHT H Urine Color (YEL,AMB,STR) BROWN H Urine Clarity (CLEAR) HAZY H Urine pH (5.0 - 8.0) 5.5 Ur Specific [place] (1.001 - 1.035) 1.025 Urine Protein (NEG,<30 MG/DL) 30 H Urine Ketones (NEG) TRACE H Urine Nitrite (NEG) POS H Urine Bilirubin (NEG) POS@ICTO H Urine Urobilinogen (0.1 - 1.0 EU/dl) >=8.0 H Ur Leukocyte Esterase (NEG) NEG Ur Microscopic SEDIMENT EXAMINED Urine WBC (0 - 2 /HPF) RARE Ur Epithelial Cells (NONE,FEW) FEW Urine Bacteria (NEG/NONE) RARE H Urine Hemoglobin (NEG) NEG Urine Glucose (N MG/DL) NEG 06/21 1349 Chemistry Sodium (137 - 145 mmol/L) 140 Potassium (3.5 - 5.1 mmol/L) 4.3 Chloride (98 - 107 mmol/L) 104 Carbon Dioxide (22 - 30 mmol/L) 27 Anion Gap (5 - 16) 9 BUN (9 - 20 mg/dL) 16 Creatinine (0.7 - 1.2 mg/dL) 1.1 Estimated GFR (>60 ml/min) > 60 BUN/Creatinine Ratio (7 - 25 %) 14.5 Glucose (65 - 99 mg/dL) 118 H Calcium (8.4 - 10.2 mg/dL) 8.9 Total Bilirubin (0.2 - 1.3 mg/dL) 5.1 H Direct Bilirubin (< 0.4 mg/dL) 2.6 H AST (17 - 59 U/L) 159 H ALT (21 - 72 U/L) 200 H Alkaline Phosphatase (< 127 U/L) 100 Troponin I (<0.11 ng/ml) < 0.01 Total Protein (6.3 - 8.2 g/dL) 6.0 L Albumin (3.5 - 5.0 g/dL) 3.3 L Globulin (1.9 - 4.2 gm/dL) 2.7 Albumin/Globulin Ratio (1.1 - 2.2 %) 1.2 Amylase (30 - 110 U/L) < 30 L Lipase (23 - 300 U/L) 32 Hematology CBC w Diff NO MAN DIFF REQ WBC (4.8 - 10.8 /CUMM) 9.1 RBC (4.70 - 6.10 /CUMM) 4.05 L Hgb (14.0 - 18.0 G/DL) 12.5 L Hct (42 - 52 %) 36.3 L MCV (80.0 - 94.0 FL) 89.8 MCH (27.0 - 31.0 PG) 31.0 MCHC (33.0 - 37.0 G/DL) 34.5 RDW (11.5 - 14.5 %) 13.4 Plt Count (130 - 400 /CUMM) 130 MPV (7.4 - 10.4 FL) 7.6 Gran % (42.2 - 75.2 %) 84.9 H Lymphocytes % (20.5 - 51.1 %) 6.4 L Monocytes % (1.7 - 9.3 %) 7.9 Eosinophils % (0 - 5 %) 0.6 Basophils % (0.0 - 2.0 %) 0.2 Absolute Granulocytes (1.4 - 6.5 /CUMM) 7.7 H Absolute Lymphocytes (1.2 - 3.4 /CUMM) 0.6 L Absolute Monocytes (0.10 - 0.60 /CUMM) 0.7 H Absolute Eosinophils (0.0 - 0.7 /CUMM) 0.1 Absolute Basophils (0.0 - 0.2 /CUMM) 0 Imaging/Other Studies: * CT scan/ultrasound with cholelithiasis, no biliary dilatation, no evident choledocholithiasis. * MRCP: Poor study with partial visualization of biliary tract, and no dilatation or evident choledocholithiasis. Assessment/Plan Assessment/Recommendations: The patient presents with chest pressure, hyperbilirubinemia/transaminitis, and fever. With known gallstones, and previous similar episodes, this likely represents biliary obstruction with transient cholangitis. Currently, he is pain-free, afebrile, and there is no leukocytosis. His bilirubin and aminotransferases have improved overnight. If indeed a CBD stone, he has either passed it or it is at least nonobstructing at this time. There has been a rise in INR overnight to over 3; would an ERCP be performed today and choledocholithiasis confirmed, he would have to be treated with a temporary stent and a future second procedure. Given his clinical stability, it makes sense to defer the procedure and reverse the anticoagulation. If needed, an ERCP may be performed urgently for recurrent evidence of cholangitis (pain, fever, leukocytosis, hypotension, change in mental status); conversely, if he remains clinically stable with declining LFTs/bilirubin, would consider cholecystectomy/IOC versus ERCP +/- sphincterotomy. Recommendations * Continue IV antibiotics, pending results of blood cultures * Begin clear liquid diet * Reverse anticoagulation; strongly consider vitamin K * Defer ERCP until anticoagulation is reversed. * Surgical consultation to consider eventual cholecystectomy/IOC. If the patient is not a candidate, would then consider prophylactic endoscopic sphincterotomy. * Follow-up CBC, LFTs, INR the morning * Call GI promptly with any evidence of cholangitis (see above) Copies To: Vasile Frausto MD Consult Acknowledgment - Thank you for your consult request.
--- NOTE | 2017-06-22 20:25 | Cons- General Surgery ---
See Addendum General Information and HPI Consulting Request Date of Consult: 06/22/17 Requested By: Vasile Frausto MD History of Present Illness: CC: abdominal pain HPI: 67-year-old nondiabetic non-smoker with a history of stroke 10 years ago with some residual left-sided weakness history of DVTs on Coumadin, seizures gastroesophageal reflux disease hyperbilirubinemia attributed to Gilbert's disease, he was admitted in April with weakness diarrhea dehydration attributed to gastroenteritis. Now he returns with some left flank pain which she's had before then mid-to lower chest pressure which she says he's had before as well. He says both areas still hurts but they're better than yesterday in the ER. He denies any nausea vomiting diarrhea fever or chills most of the history is gotten from the chart as he doesn't recall all the details himself. He did have a fever in the emergency room last night. The pain is not worse with activity no relation to foods (ie. fried or cheese). He does notice that his urine is darker than usual, no FHx of gallbladder problems. I've reviewed the [facility]. No history of heart disease or issues with anesthesia. Allergies/Medications Allergies: Coded Allergies: Iodinated Contrast- Oral and IV Dye (UNKNOWN 11/30/16) Penicillins (UNKNOWN 11/30/16) bacitracin (PER PT EYE OINTMENT -DOES NOT REMEMBER REACTION 05/05/17) Home Med List: Amlodipine (Norvasc) 2.5 MG TABLET 1 TAB PO DAILY HEART (Reported) Escitalopram Oxalate (Lexapro) 20 MG TABLET 1 TAB PO DAILY DEPRESSION ( Reported) Famotidine 20 MG TABLET 1 TAB PO DAILY GI (Reported) Levetiracetam (Keppra) 500 MG TABLET 1 TAB PO BID SEIZURES (Reported) Levothyroxine Sodium 125 MCG TABLET 1 TAB PO DAILY AC THYROID (Reported) Linaclotide (Linzess) 290 MCG CAPSULE 1 CAP PO DAILY BOWEL (Reported) Lisinopril (Prinivil) 5 MG TABLET 1 TAB PO DAILY BP (Reported) Melatonin 5 MG TABLET 1 TAB PO QPM SLEEP (Reported) Multiple Vitamin (Multivitamins) 1 EACH TABLET 1 TAB PO DAILY SUPPLEMENT ( Reported) Simvastatin (Zocor*) 20 MG TABLET 1 TAB PO QPM CHOLESTEROL (Reported) Tamsulosin HCl (Flomax) 0.4 MG CAP.ER.24H 2 CAP PO DAILY PROSTATE (Reported) Warfarin Sodium (Coumadin) 7.5 MG TABLET 1 TAB PO 1700 BLOOD THINNER ( Reported) Past History Medical History Blood Transfusion Hx: No Neurological: seizure, CVA-L SIDED PARLAYSIS EENT: NONE Cardiovascular: hypertension, hyperlipidemia, PVD Respiratory: NONE Gastrointestinal: NONE Hepatic: NONE Renal: NONE Musculoskeletal: NONE Psychiatric: NONE Endocrine: hypothyroidism Blood Disorders: NONE Cancer(s): NONE Surgical History Pertinent Surgical History: 1 Family History Relations & Conditions If Any: FATHER (PVD, Lung Cancer). . MOTHER (DM, Breast Ca, Stroke). . Psychosocial History Where Do You Live? Home Services at Home: Home Health Aide, Nursing Smoking Status: Former Smoker ETOH Use: denies use Illicit Drug Use: denies illicit drug use Functional Ability Ambulation: walker Review of Systems Review of Systems: Constitutional: No fever, sweats or weight loss ENMT: No sore throat Cardiovascular: No chest pain, palpitations or leg swelling Respiratory: No shortness of breath, cough, or sputum or dyspnea on exertion GI: No bleeding per rectum : No dysuria or hematuria Musculoskeletal: No new muscle weakness, bone or joint pain Skin / Breast: No jaundice, rashes or itching Psychiatric: No history of drug or alcohol abuse no depression or anxiety Hematologic / lymphatic system: As above history of DVT, on Coumadin Exam & Diagnostic Data Vital Signs and I&O I rev Vital Signs Date Time Temp Pulse Resp B/P B/P Pulse O2 O2 Flow FiO2 Mean Ox Delivery Rate 06/22 1423 99.3 89 20 135/89 94 Room Air 06/22 1238 97.9 76 16 112/78 03/ 1238 97.9 76 16 112/78 03/ 0653 97.9 76 16 112/78 95 Room Air / 0218 97.7 80 18 114/80 92 Room Air / 0017 98.6 82 18 123/84 94 Room Air I rev Intake & Output 06/22 1600 06/22 0800 / 0000 / 1600 06/21 0800 06/21 0000 Intake Total 430 1400 0 Output Total 875 250 Balance -445 1150 0 Intake, IV 400 1400 Intake, Oral 30 0 Number 0 Bowel Movements Output, Urine 875 250 Patient 217 lb 217 lb Weight Weight Reported by Patient Measurement Method Physical Exam: Constitutional: pleasant, no acute distress, min conversant Eyes: sclera are icteric ENMT: ears and nose atraumatic, moist mucous membranes, good dentition, no lip lesions Neck: Supple, trachea is midline, no cervical or supraclavicular adenopathy and no palpable thyromegaly Cardiovascular: S1, S2, no murmurs, no peripheral edema Respiratory: clear to auscultation with normal respiratory effort and no intercostal retractions GI: abdomen soft, right upper quadrant is nontender, nondistended, no palpable hepatosplenomegaly Extremities / lymphatics: symmetrically warm, did not evaluate range of motion no peripheral edema, no cervical, supraclavicular, axillary, or inguinal adenopathy Musculoskeletal: Did not evaluate gait and station, no digital cyanosis, did not evaluate muscle strength, good tone no atrophy, left sided extremity weakness chronic Skin: no jaundice, no rashes warm, nondiaphoretic, no areas of erythema or induration Psychiatric: mood and affect are appropriate and alert and oriented to person place and time Last 24 Hours of Labs: I rev Laboratory Tests 06/22 06/22 06/22 06/21 0724 0330 0023 2225 Chemistry Sodium (137 - 145 mmol/L) 143 Potassium (3.5 - 5.1 mmol/L) 3.4 L Chloride (98 - 107 mmol/L) 111 H Carbon Dioxide (22 - 30 mmol/L) 24 Anion Gap (5 - 16) 9 BUN (9 - 20 mg/dL) 12 Creatinine (0.7 - 1.2 mg/dL) 0.9 Estimated GFR (>60 ml/min) > 60 BUN/Creatinine Ratio (7 - 25 %) 13.3 Lactic Acid (0.7 - 2.1 mmol/L) 0.6 L 0.7 Total Bilirubin (0.2 - 1.3 mg/dL) 3.8 H Direct Bilirubin (< 0.4 mg/dL) 1.9 H AST (17 - 59 U/L) 61 H ALT (21 - 72 U/L) 122 H Alkaline Phosphatase (< 127 U/L) 74 Total Protein (6.3 - 8.2 g/dL) 4.9 L Albumin (3.5 - 5.0 g/dL) 2.4 L Coagulation PT (9.4 - 12.5 SEC) 35.6 H 27.1 H INR (0.90 - 1.17) 3.43 H 2.61 H APTT (25 - 37 SEC) 40 H Hematology CBC w Diff NO MAN DIFF REQ WBC (4.8 - 10.8 /CUMM) 7.1 RBC (4.70 - 6.10 /CUMM) 3.41 L Hgb (14.0 - 18.0 G/DL) 10.6 L Hct (42 - 52 %) 30.8 L MCV (80.0 - 94.0 FL) 90.3 MCH (27.0 - 31.0 PG) 31.2 H MCHC (33.0 - 37.0 G/DL) 34.5 RDW (11.5 - 14.5 %) 13.7 Plt Count (130 - 400 /CUMM) 106 L MPV (7.4 - 10.4 FL) 8.1 Gran % (42.2 - 75.2 %) 80.1 H Lymphocytes % (20.5 - 51.1 %) 8.7 L Monocytes % (1.7 - 9.3 %) 7.3 Eosinophils % (0 - 5 %) 3.7 Basophils % (0.0 - 2.0 %) 0.2 Absolute Granulocytes (1.4 - 6.5 /CUMM) 5.7 Absolute Lymphocytes (1.2 - 3.4 /CUMM) 0.6 L Absolute Monocytes (0.10 - 0.60 /CUMM) 0.5 Absolute Eosinophils (0.0 - 0.7 /CUMM) 0.3 Absolute Basophils (0.0 - 0.2 /CUMM) 0 Assessment/Plan Assessment/Plan Studies: I reviewed yesterday's CT scan on PACS myself as well as the ultrasound shows a distended gallbladder with calcified gallstones and possibly some mild edema no obvious CBD dilatation. Impression is patient with gallstones was developed fever pain jaundice suggestive of cholangitis he has improved overnight, blood cultures negative thus far, on IV antibiotics, perhaps he's had prior episodes reviewed gastroenterology's assessment as well. It seems he's had prior episodes the appearance of the gallbladder on imaging suggests he might have acute cholecystitis but on exam it is not particularly tender there now. Monitor the trend in his LFTs and his abdominal pain, he may eventually need a laparoscopic cholecystectomy, agree to let INR trend towards normal. We'll follow Problem List: 1. CVA 2. Hemiparesis 3. Weakness 4. Upper abdominal pain, unspecified 5. Cholangitis Consult Acknowledgment - Thank you for your consult request.
[2017-06-22 21:58] VITALS: BP 148/75
[2017-06-23 07:34] VITALS: BP 136/86
[2017-06-23 08:45] LABS: ABSOLUTE BASOPHIL COUNT 0 /CUMM (0.0-0.2); ABSOLUTE EOSINOPHIL COUNT 0.3 /CUMM (0.0-0.7); ABSOLUTE GRANULOCYTE CT 3.9 /CUMM (1.4-6.5); ABSOLUTE LYMPH COUNT 0.7 /CUMM (1.2-3.4); ABSOLUTE MONOCYTE COUNT 0.4 /CUMM (0.10-0.60); BASOPHIL % 0.4 % (0.0-2.0); EOSINOPHIL % 5.5 % (0-5); GRANULOCYTE % 73.5 % (42.2-75.2); HEMATOCRIT 31.4 % (42-52); MEAN CORPUSCULAR HGB 31.5 PG (27.0-31.0); MEAN CORPUSCULAR HGB CONC 34.3 G/DL (33.0-37.0); MEAN CORPUSCULAR VOLUME 91.9 FL (80.0-94.0); MEAN PLATELET VOLUME 7.8 FL (7.4-10.4); PLATELET COUNT 111 /CUMM (130-400); RBC DISTRIBUTION WIDTH 13.1 % (11.5-14.5); RED BLOOD CELL CT 3.41 /CUMM (4.70-6.10); WHITE BLOOD CELL COUNT 5.3 /CUMM (4.8-10.8)
[2017-06-23 08:56] LABS: PT 19.8 SEC (9.4-12.5)
--- NOTE | 2017-06-23 09:04 | PN- Housestaff ---
See Addendum Subjective Follow-up For: UTI vs Pylonephritis Cholecystitis Subjective: Patient was seen and examined at bedside. he feels okay, still complains of some abdominal pain. Review of Systems Constitutional: Reports: no symptoms. Gastrointestinal: Reports: abdominal pain. Objective Last 24 Hrs of Vital Signs/I&O Vital Signs Date Time Temp Pulse Resp B/P B/P Pulse O2 O2 Flow FiO2 Mean Ox Delivery Rate 06/23 0824 98.6 77 20 136/86 06/23 0823 98.6 77 20 136/86 06/23 0821 98.6 77 20 136/86 06/23 0734 98.6 77 20 136/86 94 Room Air 06/22 2158 99.0 82 20 148/75 92 Room Air 06/22 1423 99.3 89 20 135/89 94 Room Air Intake & Output 06/23 1600 06/23 0800 06/23 0000 Intake Total 720 420 Output Total 300 350 Balance 420 70 Intake, IV 600 300 Intake, Oral 120 120 Number 0 Bowel Movements Output, Urine 300 350 Patient 216 lb Weight Physical Exam General Appearance: Alert, Oriented X3, Cooperative, Mild Distress Skin: No Rashes, No Breakdown Skin Temp/Moisture Exam: Warm/Dry Sepsis Skin Exam (color): Normal for Ethnicity HEENT: Atraumatic Cardiovascular: Normal S1, Normal S2, No Murmurs Lungs: Clear to Auscultation, Normal Air Movement Abdomen: Soft, diffuse tenderness Neurological: Normal Speech Extremities: No Edema Assessment/Plan Assessment: Patient is a 67 year old male with a PMH significant for seizure disorder on Keppra, 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 Assessment: 1. UTI vs Pylonephritis 2. Acute Cholecystitis 3. History of DVT 4. History of Hypertension 5. History of Seizures 6. Elevated LFTs Plan: * Continue IV Ceftriaxone and IV Flagyl. The former would cover for his UTI as well. * Blood cultures have showed no growth so far. * MRCP yesterday showed cholecystitis. but no choledocholithiasis seen. No intra or extrahepatic biliary ductal dilatation. * General Surgery recommends elective cholecystectomy. * Would observe the patient for now. * Will hold Coumadin today in case he needs emergent surgery or ERCP. * Continue Keppra * Continue all blood pressure medications. * DVT Prophylaxis: ALPS * Diet: Full Liquid Diet * Code: Full Code. Problem List: 1. Flank pain Pain Ratin Pain Location: none Pain Goal: Remain pain free Pain Plan: none Tomorrow's Labs & Rationales: CBC, BEP, INR, LFTs
--- NOTE | 2017-06-23 13:13 | PN- Gastroenterology ---
Assessment/Plan GI Assessment/Recommendations: Assessment: Mr. Pagan is a 67 year old male admitted with RUQ pain and increased LFTs presuably secondary to cholangitis and a passed gallstone. He is currently asymtomatic and his LFTs are improving which along with his MRCP negative which was negative for biliary ductal dilation or choledocolithiasis all suggests a stone has passed and therefore an ERCP is currently not indicated. He does appear to have cholecystitis on imaging so I would recommend continuing his antibiotics and would defer to surgery as to the timeing of a cholecystectomy. Recommendations: 1. Low fat diet as tolerated 2. Continue IV antibiotics 3. Follow daily LFTs along with a daily INR 4. Surgical follow up for timing of ccy. 5. Notify GI for signs of cholangitis such as worsening RUQ pain, fevers and jaundice. I will continue to follow this patient and make further recommendations based on his clinical course and results of repeat blood work. Subjective Subjective: Pt feeling well today. no further abdominal pain, no vomiting and he is toleraing PO intake. Objective Vital Signs and I&Os Vital Signs Date Time Temp Pulse Resp B/P B/P Pulse O2 O2 Flow FiO2 Mean Ox Delivery Rate 06/23 0824 98.6 77 20 136/86 / 0823 98.6 77 20 136/86 03/ 0821 98.6 77 20 136/86 03/03 0734 98.6 77 20 136/86 94 Room Air 03/ 2158 99.0 82 20 148/75 92 Room Air 03/ 1423 99.3 89 20 135/89 94 Room Air / 1238 97.9 76 16 112/78 03 1238 97.9 76 16 112/78 Intake & Output 06/23 1600 06/23 0400 06/22 1600 06/22 0400 06/21 1600 06/21 0400 Intake Total 720 985 624 3629 0 Output Total 104 714 5043 Balance 420 70 -395 1100 0 Intake, IV 600 730 269 7997 Intake, Oral 120 120 30 0 Number 0 0 Bowel Movements Output, Urine 548 822 2111 Patient 216 lb 217 lb 217 lb Weight Weight Reported by Patient Measurement Method Physical Exam General Appearance: well developed/nourished, no apparent distress, alert, comfortable Head: atraumatic, normal appearance Ears, Nose, Throat: normal pharynx Neck: normal inspection, supple, full range of motion Respiratory: normal breath sounds, chest non-tender, no respiratory distress Cardiovascular: regular rate/rhythm Abdomen: normal bowel sounds, soft, non-tender Rectal: deferred Extremities: no edema Neurologic/Psychiatric: no motor/sensory deficits, awake, alert, oriented x 3, aphasia Current Medications: Current Medications Sig/Miladis Start time Last Medication Dose Route Stop Time Status Admin Acetaminophen 650 MG Q6P PRN 06/22 0130 AC PO Amlodipine Besylate 2.5 MG DAILY 06/22 1000 AC 06/23 PO 0824 Atorvastatin Calcium 20 MG 1700 06/22 1700 AC 06/22 PO 1647 Ceftriaxone Sodium 1,000 MG DAILY 06/22 1000 AC 06/23 IV 1056 Escitalopram Oxalate 10 MG DAILY 06/22 1000 AC 06/23 PO 0823 Famotidine 20 MG DAILY 06/22 1000 AC 06/23 PO 0823 Levetiracetam 500 MG BID 06/22 1000 AC 06/23 PO 0822 Levothyroxine Sodium 0.125 MG DAILY AC 06/22 0700 AC 06/23 PO 0558 Lisinopril 5 MG DAILY 06/22 1000 AC 06/23 PO 0823 Melatonin 5 MG QPM 06/22 2200 AC 06/22 PO 2150 Metronidazole 500 MG IQ8 06/22 0800 AC 06/23 N/A 1 UNIT IV 0821 Morphine Sulfate 2 MG Q6-PRN PRN 06/22 0130 AC IV Multivitamins 1 TAB DAILY 06/22 1000 AC 06/23 Therapeutic PO 0823 Nystatin 1 EVERETT BID 06/23 0358 AC 06/23 TOP 0836 Sodium Chloride 1,000 ML Q13H 06/22 0245 AC 06/22 IV 2343 Tamsulosin HCl 0.8 MG DAILY 06/22 1000 AC 06/23 PO 0821 Results Pertinent Lab Results: Laboratory Tests 06/23 06/22 0704 0724 Chemistry Sodium (137 - 145 mmol/L) 139 143 Potassium (3.5 - 5.1 mmol/L) 4.0 3.4 L Chloride (98 - 107 mmol/L) 106 111 H Carbon Dioxide (22 - 30 mmol/L) 29 24 Anion Gap (5 - 16) 5 9 BUN (9 - 20 mg/dL) 12 12 Creatinine (0.7 - 1.2 mg/dL) 1.0 0.9 Estimated GFR (>60 ml/min) > 60 > 60 BUN/Creatinine Ratio (7 - 25 %) 12.0 13.3 Total Bilirubin (0.2 - 1.3 mg/dL) 1.8 H 3.8 H Direct Bilirubin (< 0.4 mg/dL) 0.5 H 1.9 H AST (17 - 59 U/L) 28 61 H ALT (21 - 72 U/L) 86 H 122 H Alkaline Phosphatase (< 127 U/L) 71 74 Total Protein (6.3 - 8.2 g/dL) 5.2 L 4.9 L Albumin (3.5 - 5.0 g/dL) 2.6 L 2.4 L Coagulation PT (9.4 - 12.5 SEC) 19.8 H 35.6 H INR (0.90 - 1.17) 1.90 H 3.43 H Hematology CBC w Diff NO MAN DIFF REQ NO MAN DIFF REQ WBC (4.8 - 10.8 /CUMM) 5.3 7.1 RBC (4.70 - 6.10 /CUMM) 3.41 L 3.41 L Hgb (14.0 - 18.0 G/DL) 10.7 L 10.6 L Hct (42 - 52 %) 31.4 L 30.8 L MCV (80.0 - 94.0 FL) 91.9 90.3 MCH (27.0 - 31.0 PG) 31.5 H 31.2 H MCHC (33.0 - 37.0 G/DL) 34.3 34.5 RDW (11.5 - 14.5 %) 13.1 13.7 Plt Count (130 - 400 /CUMM) 111 L 106 L MPV (7.4 - 10.4 FL) 7.8 8.1 Gran % (42.2 - 75.2 %) 73.5 80.1 H Lymphocytes % (20.5 - 51.1 %) 13.6 L 8.7 L Monocytes % (1.7 - 9.3 %) 7.0 7.3 Eosinophils % (0 - 5 %) 5.5 H 3.7 Basophils % (0.0 - 2.0 %) 0.4 0.2 Absolute Granulocytes (1.4 - 6.5 /CUMM) 3.9 5.7 Absolute Lymphocytes (1.2 - 3.4 /CUMM) 0.7 L 0.6 L Absolute Monocytes (0.10 - 0.60 /CUMM) 0.4 0.5 Absolute Eosinophils (0.0 - 0.7 /CUMM) 0.3 0.3 Absolute Basophils (0.0 - 0.2 /CUMM) 0 0 06/22 06/22 06/21 06/21 06/21 0330 0023 2225 1954 1756 Chemistry Lactic Acid (0.7 - 2.1 mmol/L) 0.6 L 0.7 Troponin I (<0.11 ng/ml) < 0.01 Coagulation PT (9.4 - 12.5 SEC) 27.1 H INR (0.90 - 1.17) 2.61 H APTT (25 - 37 SEC) 40 H Serology Virus Culture Pending 06/21 06/21 1600 1349 Chemistry Sodium (137 - 145 mmol/L) 140 Potassium (3.5 - 5.1 mmol/L) 4.3 Chloride (98 - 107 mmol/L) 104 Carbon Dioxide (22 - 30 mmol/L) 27 Anion Gap (5 - 16) 9 BUN (9 - 20 mg/dL) 16 Creatinine (0.7 - 1.2 mg/dL) 1.1 Estimated GFR (>60 ml/min) > 60 BUN/Creatinine Ratio (7 - 25 %) 14.5 Glucose (65 - 99 mg/dL) 118 H Calcium (8.4 - 10.2 mg/dL) 8.9 Total Bilirubin (0.2 - 1.3 mg/dL) 5.1 H Direct Bilirubin (< 0.4 mg/dL) 2.6 H AST (17 - 59 U/L) 159 H ALT (21 - 72 U/L) 200 H Alkaline Phosphatase (< 127 U/L) 100 Troponin I (<0.11 ng/ml) < 0.01 Total Protein (6.3 - 8.2 g/dL) 6.0 L Albumin (3.5 - 5.0 g/dL) 3.3 L Globulin (1.9 - 4.2 gm/dL) 2.7 Albumin/Globulin Ratio (1.1 - 2.2 %) 1.2 Amylase (30 - 110 U/L) < 30 L Lipase (23 - 300 U/L) 32 Hematology CBC w Diff NO MAN DIFF REQ WBC (4.8 - 10.8 /CUMM) 9.1 RBC (4.70 - 6.10 /CUMM) 4.05 L Hgb (14.0 - 18.0 G/DL) 12.5 L Hct (42 - 52 %) 36.3 L MCV (80.0 - 94.0 FL) 89.8 MCH (27.0 - 31.0 PG) 31.0 MCHC (33.0 - 37.0 G/DL) 34.5 RDW (11.5 - 14.5 %) 13.4 Plt Count (130 - 400 /CUMM) 130 MPV (7.4 - 10.4 FL) 7.6 Gran % (42.2 - 75.2 %) 84.9 H Lymphocytes % (20.5 - 51.1 %) 6.4 L Monocytes % (1.7 - 9.3 %) 7.9 Eosinophils % (0 - 5 %) 0.6 Basophils % (0.0 - 2.0 %) 0.2 Absolute Granulocytes (1.4 - 6.5 /CUMM) 7.7 H Absolute Lymphocytes (1.2 - 3.4 /CUMM) 0.6 L Absolute Monocytes (0.10 - 0.60 /CUMM) 0.7 H Absolute Eosinophils (0.0 - 0.7 /CUMM) 0.1 Absolute Basophils (0.0 - 0.2 /CUMM) 0 Urines Urinalysis LIGHT H Urine Color (YEL,AMB,STR) BROWN H Urine Clarity (CLEAR) HAZY H Urine pH (5.0 - 8.0) 5.5 Ur Specific [place] (1.001 - 1.035) 1.025 Urine Protein (NEG,<30 MG/DL) 30 H Urine Ketones (NEG) TRACE H Urine Nitrite (NEG) POS H Urine Bilirubin (NEG) POS@ICTO H Urine Urobilinogen (0.1 - 1.0 EU/dl) >=8.0 H Ur Leukocyte Esterase (NEG) NEG Ur Microscopic SEDIMENT EXAMINED Urine WBC (0 - 2 /HPF) RARE Ur Epithelial Cells (NONE,FEW) FEW Urine Bacteria (NEG/NONE) RARE H Urine Hemoglobin (NEG) NEG Urine Glucose (N MG/DL) NEG Imaging/Other Studies: SERVICE DATE: 06/22/17- EXAM TYPE: MRI - MRI-ABDOMEN EXAMINATION: MRI ABDOMEN WITHOUT CONTRAST (MRCP) CLINICAL INFORMATION: Evaluate for cholangitis. Abnormal liver function tests. Gallbladder wall edema. COMPARISON: Ultrasound and CT 06/21/2017, and earlier TECHNIQUE: Multiplanar MR images through the abdomen were obtained on a 1.5 [place] MR system without IV contrast. Heavily T2 weighted MRCP sequences of the biliary tree were obtained in multiple planes. FINDINGS: Most of the sequences are limited by extensive patient motion. No IV contrast was administered. LUNG BASES: Small right pleural effusion. There is shift of the heart and mediastinum to the right. LIVER: Grossly normal liver signal with no hepatic steatosis is seen. There are multiple well-circumscribed T2 hyperintense, lobular lesions scattered in the right and left lobes of the liver. These are incompletely evaluated without contrast but most likely represent simple cysts. Mild periportal edema is present. GALLBLADDER: The gallbladder wall is thickened, up to 8-9 mm. There is pericholecystic fluid. There is a 9 mm T2 hypointense round structure adjacent the posterior wall of the mid gallbladder, consistent with a calculus. There are likely tiny dependent calculi in the neck of the gallbladder, not well demonstrated. BILIARY TREE: No intra-hepatic biliary ductal dilation. Extensive motion artifact limits evaluation of the MRCP images. The common bile duct is normal in diameter as visualized, at most 6 mm in diameter. No intraluminal filling defects seen. PANCREAS: The pancreas is normal in appearance. No ductal dilatation, mass or majo-pancreatic fluid seen. SPLEEN: Normal. Normal size. No focal lesion. ADRENAL GLANDS: Normal. No adrenal mass. KIDNEYS AND URETERS: There is bilateral renal cortical thinning. There is a well-circumscribed 7 mm T2 hyperintense likely cyst of the anterior cortex of the lower pole of the left kidney. No hydronephrosis. LYMPHOVASCULAR STRUCTURES: Normal caliber aorta. IVC patent. No pathologically enlarged abdominal or retroperitoneal lymphadenopathy by size criteria. IVC filter was better seen on other imaging modalities. OSSEOUS STRUCTURES: There are degenerative changes of the spine. No ascites. The stomach, small bowel, and colon are nondilated. IMPRESSION: There is cholelithiasis but no choledocholithiasis seen. No intra or extrahepatic biliary ductal dilatation. There is periportal edema. The gallbladder wall is thickened to 8-9 mm with adjacent pericholecystic fluid, suggesting cholecystitis. Multiple well-circumscribed T2 hyperintense lesions in the liver are incompletely evaluated with out IV contrast but most likely represent simple cysts.
[2017-06-23 14:36] VITALS: BP 132/80
[2017-06-23 22:21] VITALS: BP 137/85
--- NOTE | 2017-06-23 23:08 | PN- General Surgery ---
Subjective Subjective: f/up cholangitis says feels same -still subxiphoid and LLQ pain not RUQ denies nausea, vomiting, tolerating liquid diet, urine still dark Objective Vital Signs and I&Os rev Vital Signs Date Time Temp Pulse Resp B/P B/P Pulse O2 O2 Flow FiO2 Mean Ox Delivery Rate 06/23 2221 98.7 75 20 137/85 94 / 1436 98.6 70 20 132/80 93 Room Air 06/23 0824 98.6 77 20 136/86 /03 0823 98.6 77 20 136/86 /03 0821 98.6 77 20 136/86 /03 0734 98.6 77 20 136/86 94 Room Air rev Intake & Output 06/23 1600 06/23 0800 06/23 0000 06/22 1600 06/22 0800 06/22 0000 Intake Total 540 720 642 644 3253 Output Total 1250 300 350 875 250 Balance -710 420 70 -445 1150 Intake, IV 300 600 160 263 1840 Intake, Oral 240 120 120 30 Number 0 0 Bowel Movements Output, Urine 1250 300 350 875 250 Patient 216 lb 217 lb Weight Current Medications: rev Current Medications Sig/Miladis Start time Last Medication Dose Route Stop Time Status Admin Acetaminophen 650 MG Q6P PRN 06/22 0130 AC PO Amlodipine Besylate 2.5 MG DAILY 06/22 1000 AC 06/23 PO 0824 Atorvastatin Calcium 20 MG 1700 / 1700 AC 06/23 PO 1649 Ceftriaxone Sodium 1,000 MG DAILY 06/22 1000 AC 06/23 IV 1056 Escitalopram Oxalate 10 MG DAILY 06/22 1000 AC 06/23 PO 0823 Famotidine 20 MG DAILY 06/22 1000 AC 06/23 PO 0823 Heparin Sodium 25,000 UNIT Q24H / 1415 AC 06/23 (Porcine) IV 1711 Sodium Chloride 500 ML Levetiracetam 500 MG BID 06/22 1000 AC 06/23 PO 2034 Levothyroxine Sodium 0.125 MG DAILY AC 06/22 0700 AC 06/23 PO 0558 Lisinopril 5 MG DAILY 06/22 1000 AC 06/23 PO 0823 Melatonin 5 MG QPM / 2200 AC 06/23 PO 2034 Metronidazole 500 MG IQ8 06/22 0800 AC 06/23 N/A 1 UNIT IV 1649 Morphine Sulfate 2 MG Q6-PRN PRN 06/22 0130 AC 06/23 IV 1409 Multivitamins 1 TAB DAILY 06/22 1000 AC 06/23 Therapeutic PO 0823 Nystatin 1 EVERETT BID 06/23 0358 06/23 TOP 2035 Sodium Chloride 1,000 ML Q13H 06/22 0245 06/23 IV 2035 Tamsulosin HCl 0.8 MG DAILY 06/22 1000 AC 06/23 PO 0821 Results Last 48 Hours of Labs: Laboratory Tests 06/23 06/23 2250 0704 Chemistry Sodium (137 - 145 mmol/L) 139 Potassium (3.5 - 5.1 mmol/L) 4.0 Chloride (98 - 107 mmol/L) 106 Carbon Dioxide (22 - 30 mmol/L) 29 Anion Gap (5 - 16) 5 BUN (9 - 20 mg/dL) 12 Creatinine (0.7 - 1.2 mg/dL) 1.0 Estimated GFR (>60 ml/min) > 60 BUN/Creatinine Ratio (7 - 25 %) 12.0 Total Bilirubin (0.2 - 1.3 mg/dL) 1.8 H Direct Bilirubin (< 0.4 mg/dL) 0.5 H AST (17 - 59 U/L) 28 ALT (21 - 72 U/L) 86 H Alkaline Phosphatase (< 127 U/L) 71 Total Protein (6.3 - 8.2 g/dL) 5.2 L Albumin (3.5 - 5.0 g/dL) 2.6 L Coagulation PT (9.4 - 12.5 SEC) 19.8 H INR (0.90 - 1.17) 1.90 H APTT Pending Hematology CBC w Diff NO MAN DIFF REQ WBC (4.8 - 10.8 /CUMM) 5.3 RBC (4.70 - 6.10 /CUMM) 3.41 L Hgb (14.0 - 18.0 G/DL) 10.7 L Hct (42 - 52 %) 31.4 L MCV (80.0 - 94.0 FL) 91.9 MCH (27.0 - 31.0 PG) 31.5 H MCHC (33.0 - 37.0 G/DL) 34.3 RDW (11.5 - 14.5 %) 13.1 Plt Count (130 - 400 /CUMM) 111 L MPV (7.4 - 10.4 FL) 7.8 Gran % (42.2 - 75.2 %) 73.5 Lymphocytes % (20.5 - 51.1 %) 13.6 L Monocytes % (1.7 - 9.3 %) 7.0 Eosinophils % (0 - 5 %) 5.5 H Basophils % (0.0 - 2.0 %) 0.4 Absolute Granulocytes (1.4 - 6.5 /CUMM) 3.9 Absolute Lymphocytes (1.2 - 3.4 /CUMM) 0.7 L Absolute Monocytes (0.10 - 0.60 /CUMM) 0.4 Absolute Eosinophils (0.0 - 0.7 /CUMM) 0.3 Absolute Basophils (0.0 - 0.2 /CUMM) 0 06/22 06/22 06/22 0724 0330 0023 Chemistry Sodium (137 - 145 mmol/L) 143 Potassium (3.5 - 5.1 mmol/L) 3.4 L Chloride (98 - 107 mmol/L) 111 H Carbon Dioxide (22 - 30 mmol/L) 24 Anion Gap (5 - 16) 9 BUN (9 - 20 mg/dL) 12 Creatinine (0.7 - 1.2 mg/dL) 0.9 Estimated GFR (>60 ml/min) > 60 BUN/Creatinine Ratio (7 - 25 %) 13.3 Lactic Acid (0.7 - 2.1 mmol/L) 0.6 L 0.7 Total Bilirubin (0.2 - 1.3 mg/dL) 3.8 H Direct Bilirubin (< 0.4 mg/dL) 1.9 H AST (17 - 59 U/L) 61 H ALT (21 - 72 U/L) 122 H Alkaline Phosphatase (< 127 U/L) 74 Total Protein (6.3 - 8.2 g/dL) 4.9 L Albumin (3.5 - 5.0 g/dL) 2.4 L Coagulation PT (9.4 - 12.5 SEC) 35.6 H INR (0.90 - 1.17) 3.43 H Hematology CBC w Diff NO MAN DIFF REQ WBC (4.8 - 10.8 /CUMM) 7.1 RBC (4.70 - 6.10 /CUMM) 3.41 L Hgb (14.0 - 18.0 G/DL) 10.6 L Hct (42 - 52 %) 30.8 L MCV (80.0 - 94.0 FL) 90.3 MCH (27.0 - 31.0 PG) 31.2 H MCHC (33.0 - 37.0 G/DL) 34.5 RDW (11.5 - 14.5 %) 13.7 Plt Count (130 - 400 /CUMM) 106 L MPV (7.4 - 10.4 FL) 8.1 Gran % (42.2 - 75.2 %) 80.1 H Lymphocytes % (20.5 - 51.1 %) 8.7 L Monocytes % (1.7 - 9.3 %) 7.3 Eosinophils % (0 - 5 %) 3.7 Basophils % (0.0 - 2.0 %) 0.2 Absolute Granulocytes (1.4 - 6.5 /CUMM) 5.7 Absolute Lymphocytes (1.2 - 3.4 /CUMM) 0.6 L Absolute Monocytes (0.10 - 0.60 /CUMM) 0.5 Absolute Eosinophils (0.0 - 0.7 /CUMM) 0.3 Absolute Basophils (0.0 - 0.2 /CUMM) 0 Assessment/Plan Assessment/Plan Cholangitis Improving labs and temps bur still c/o pain, continue present care monitor trends, consider lap choly on Sunday.
[2017-06-23 23:38] LABS: PTT 37 SEC (25-37)
[2017-06-24 06:28] VITALS: BP 142/92
[2017-06-24 09:32] LABS: ABSOLUTE BASOPHIL COUNT 0 /CUMM (0.0-0.2); ABSOLUTE EOSINOPHIL COUNT 0.4 /CUMM (0.0-0.7); ABSOLUTE GRANULOCYTE CT 2.8 /CUMM (1.4-6.5); ABSOLUTE LYMPH COUNT 0.8 /CUMM (1.2-3.4); ABSOLUTE MONOCYTE COUNT 0.3 /CUMM (0.10-0.60); BASOPHIL % 0.8 % (0.0-2.0); EOSINOPHIL % 8.3 % (0-5); GRANULOCYTE % 65.2 % (42.2-75.2); HEMATOCRIT 29.8 % (42-52); MEAN CORPUSCULAR HGB 31.4 PG (27.0-31.0); MEAN CORPUSCULAR HGB CONC 34.4 G/DL (33.0-37.0); MEAN CORPUSCULAR VOLUME 91.5 FL (80.0-94.0); MEAN PLATELET VOLUME 7.3 FL (7.4-10.4); PLATELET COUNT 123 /CUMM (130-400); RED BLOOD CELL CT 3.26 /CUMM (4.70-6.10); WHITE BLOOD CELL COUNT 4.3 /CUMM (4.8-10.8)
[2017-06-24 09:54] LABS: PT 20.5 SEC (9.4-12.5)
[2017-06-24 10:01] LABS: PTT > 120 SEC (25-37)
--- NOTE | 2017-06-24 10:24 | PN- Housestaff ---
See Addendum Subjective Follow-up For: UTI vs Pylonephritis Cholecystitis Subjective: Patient was seen and examined at bedside. He still has some mild abdominal pain. He would like to be back on a regular diet. Offers no complaints. Review of Systems Constitutional: Reports: no symptoms. Gastrointestinal: Reports: abdominal pain. Objective Last 24 Hrs of Vital Signs/I&O Vital Signs Date Time Temp Pulse Resp B/P B/P Pulse O2 O2 Flow FiO2 Mean Ox Delivery Rate 06/24 914 98.4 70 20 142/92 / 0915 98.4 70 20 142/92 / 0915 98.4 70 20 142/92 / 0628 98.4 70 20 142/92 93 Room Air 06/23 2221 98.7 75 20 137/85 94 / 1436 98.6 70 20 132/80 93 Room Air Intake & Output 06/24 1600 06/24 0800 06/24 0000 Intake Total 950 1156 Output Total 300 600 Balance 650 556 Intake, IV 850 756 Intake, Oral 100 400 Output, Urine 300 600 Physical Exam General Appearance: Alert, Oriented X3, Cooperative, Mild Distress Skin: No Rashes, No Breakdown Skin Temp/Moisture Exam: Warm/Dry Sepsis Skin Exam (color): Normal for Ethnicity HEENT: Atraumatic Cardiovascular: Normal S1, Normal S2, No Murmurs Lungs: Clear to Auscultation, Normal Air Movement Abdomen: Soft, mild tenderness Neurological: Normal Speech Extremities: No Edema Assessment/Plan Assessment: Patient is a 67 year old male with a PMH significant for seizure disorder on Keppra, 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 Assessment: 1. UTI vs Pylonephritis 2. Acute Cholecystitis 3. History of DVT 4. History of Hypertension 5. History of Seizures 6. Elevated LFTs Plan: * Continue IV Ceftriaxone and IV Flagyl. The former would cover for his UTI as well. * Blood cultures have showed no growth so far. * MRCP showed cholecystitis. but no choledocholithiasis seen. No intra or extrahepatic biliary ductal dilatation. * General Surgery recommends elective cholecystectomy. Consideration for Sunday. * Will continue current care for now. * Will hold Coumadin. Patient has been started on IV heparin. * Continue Keppra * Continue all blood pressure medications. * DVT Prophylaxis: ALPS * Diet: Regular * Code: Full Code. Problem List: 1. Cholangitis Pain Ratin Pain Location: none Pain Goal: Remain pain free Pain Plan: none Tomorrow's Labs & Rationales: CBC, BEP, LFTs, INR
--- NOTE | 2017-06-24 11:04 | PN- Gastroenterology ---
Subjective Subjective: pt doing well today without any significant complaints. no fevers, no abdominal pain, no vomiting. Objective Vital Signs and I&Os Vital Signs Date Time Temp Pulse Resp B/P B/P Pulse O2 O2 Flow FiO2 Mean Ox Delivery Rate 06/24 0815 98.4 70 20 142/92 / 0915 98.4 70 20 142/92 / 0915 98.4 70 20 142/92 / 0628 98.4 70 20 142/92 93 Room Air 06/23 2221 98.7 75 20 137/85 94 06/23 1436 98.6 70 20 132/80 93 Room Air Intake & Output 06/24 1600 06/24 0400 06/23 1600 06/23 0400 06/22 1600 06/22 0400 Intake Total 950 1156 1260 835 507 0190 Output Total 238 869 1547 350 1125 Balance 650 556 -290 70 -395 1100 Intake, IV 850 756 900 330 516 8037 Intake, Oral 100 400 360 120 30 Number 0 0 Bowel Movements Output, Urine 080 307 7304 350 1125 Patient 216 lb 217 lb Weight Current Medications: Current Medications Sig/Miladis Start time Last Medication Dose Route Stop Time Status Admin Acetaminophen 650 MG Q6P PRN 06/22 0130 AC PO Amlodipine Besylate 2.5 MG DAILY 06/22 1000 AC 06/24 PO 0915 Atorvastatin Calcium 20 MG 1700 / 1700 AC 06/23 PO 1649 Ceftriaxone Sodium 1,000 MG DAILY 06/22 1000 AC 06/23 IV 1056 Dextrose/Sodium 1,000 ML Q13H 06/25 0600 AC Chloride IV Escitalopram Oxalate 10 MG DAILY 06/22 1000 AC 06/24 PO 0915 Famotidine 20 MG DAILY 06/22 1000 AC 06/24 PO 0915 Heparin Sodium 10,000 UNIT .STK-MED ONE 06/24 0136 DC (Porcine) IV 06/24 0137 Heparin Sodium 7,350 UNIT BOLUS ONE 06/24 0120 DC 06/24 (Porcine) IV 06/24 0121 0138 Heparin Sodium 25,000 UNIT Q24H 06/23 1415 r 06/23 (Porcine) IV 06/25 0000 1711 Sodium Chloride 500 ML Levetiracetam 500 MG BID / 1000 AC 06/24 PO 0916 Levothyroxine Sodium 0.125 MG DAILY AC 06/22 0700 AC 06/24 PO 0555 Lisinopril 5 MG DAILY 06/22 1000 AC 06/24 PO 0915 Melatonin 5 MG QPM 06/22 2200 AC 06/23 PO 2034 Metronidazole 500 MG IQ8 06/22 0800 AC 06/24 N/A 1 UNIT IV 0914 Morphine Sulfate 2 MG Q6-PRN PRN 06/22 0130 AC 06/23 IV 1409 Multivitamins 1 TAB DAILY 06/22 1000 AC 06/24 Therapeutic PO 0915 Nystatin 1 EVERETT BID 06/23 0358 AC 06/24 TOP 0916 Potassium Chloride 40 MEQ ONCE ONE 06/24 1030 DC PO 06/24 1031 Sodium Chloride 1,000 ML Q13H 06/22 0245 r 06/23 IV 06/25 0000 2035 Tamsulosin HCl 0.8 MG DAILY 06/22 1000 AC 06/24 PO 0915 Results Pertinent Lab Results: Laboratory Tests 06/24 06/24 06/23 0815 0600 2250 Chemistry Sodium (137 - 145 mmol/L) 143 Potassium (3.5 - 5.1 mmol/L) 3.4 L Chloride (98 - 107 mmol/L) 109 H Carbon Dioxide (22 - 30 mmol/L) 27 Anion Gap (5 - 16) 7 BUN (9 - 20 mg/dL) 11 Creatinine (0.7 - 1.2 mg/dL) 0.9 Estimated GFR (>60 ml/min) > 60 BUN/Creatinine Ratio (7 - 25 %) 12.2 Total Bilirubin (0.2 - 1.3 mg/dL) 1.3 Direct Bilirubin (< 0.4 mg/dL) 0.5 H AST (17 - 59 U/L) 41 ALT (21 - 72 U/L) 88 H Alkaline Phosphatase (< 127 U/L) 107 Total Protein (6.3 - 8.2 g/dL) 5.2 L Albumin (3.5 - 5.0 g/dL) 2.5 L Coagulation PT (9.4 - 12.5 SEC) 20.5 H Cancelled INR (0.90 - 1.17) 1.87 H Cancelled APTT (25 - 37 SEC) > 120 *H 37 Hematology CBC w Diff NO MAN DIFF REQ WBC (4.8 - 10.8 /CUMM) 4.3 L RBC (4.70 - 6.10 /CUMM) 3.26 L Hgb (14.0 - 18.0 G/DL) 10.3 L Hct (42 - 52 %) 29.8 L MCV (80.0 - 94.0 FL) 91.5 MCH (27.0 - 31.0 PG) 31.4 H MCHC (33.0 - 37.0 G/DL) 34.4 RDW (11.5 - 14.5 %) 14.0 Plt Count (130 - 400 /CUMM) 123 L MPV (7.4 - 10.4 FL) 7.3 L Gran % (42.2 - 75.2 %) 65.2 Lymphocytes % (20.5 - 51.1 %) 19.5 L Monocytes % (1.7 - 9.3 %) 6.2 Eosinophils % (0 - 5 %) 8.3 H Basophils % (0.0 - 2.0 %) 0.8 Absolute Granulocytes (1.4 - 6.5 /CUMM) 2.8 Absolute Lymphocytes (1.2 - 3.4 /CUMM) 0.8 L Absolute Monocytes (0.10 - 0.60 /CUMM) 0.3 Absolute Eosinophils (0.0 - 0.7 /CUMM) 0.4 Absolute Basophils (0.0 - 0.2 /CUMM) 0 03/03 03/02 0704 0724 Chemistry Sodium (137 - 145 mmol/L) 139 143 Potassium (3.5 - 5.1 mmol/L) 4.0 3.4 L Chloride (98 - 107 mmol/L) 106 111 H Carbon Dioxide (22 - 30 mmol/L) 29 24 Anion Gap (5 - 16) 5 9 BUN (9 - 20 mg/dL) 12 12 Creatinine (0.7 - 1.2 mg/dL) 1.0 0.9 Estimated GFR (>60 ml/min) > 60 > 60 BUN/Creatinine Ratio (7 - 25 %) 12.0 13.3 Total Bilirubin (0.2 - 1.3 mg/dL) 1.8 H 3.8 H Direct Bilirubin (< 0.4 mg/dL) 0.5 H 1.9 H AST (17 - 59 U/L) 28 61 H ALT (21 - 72 U/L) 86 H 122 H Alkaline Phosphatase (< 127 U/L) 71 74 Total Protein (6.3 - 8.2 g/dL) 5.2 L 4.9 L Albumin (3.5 - 5.0 g/dL) 2.6 L 2.4 L Coagulation PT (9.4 - 12.5 SEC) 19.8 H 35.6 H INR (0.90 - 1.17) 1.90 H 3.43 H Hematology CBC w Diff NO MAN DIFF REQ NO MAN DIFF REQ WBC (4.8 - 10.8 /CUMM) 5.3 7.1 RBC (4.70 - 6.10 /CUMM) 3.41 L 3.41 L Hgb (14.0 - 18.0 G/DL) 10.7 L 10.6 L Hct (42 - 52 %) 31.4 L 30.8 L MCV (80.0 - 94.0 FL) 91.9 90.3 MCH (27.0 - 31.0 PG) 31.5 H 31.2 H MCHC (33.0 - 37.0 G/DL) 34.3 34.5 RDW (11.5 - 14.5 %) 13.1 13.7 Plt Count (130 - 400 /CUMM) 111 L 106 L MPV (7.4 - 10.4 FL) 7.8 8.1 Gran % (42.2 - 75.2 %) 73.5 80.1 H Lymphocytes % (20.5 - 51.1 %) 13.6 L 8.7 L Monocytes % (1.7 - 9.3 %) 7.0 7.3 Eosinophils % (0 - 5 %) 5.5 H 3.7 Basophils % (0.0 - 2.0 %) 0.4 0.2 Absolute Granulocytes (1.4 - 6.5 /CUMM) 3.9 5.7 Absolute Lymphocytes (1.2 - 3.4 /CUMM) 0.7 L 0.6 L Absolute Monocytes (0.10 - 0.60 /CUMM) 0.4 0.5 Absolute Eosinophils (0.0 - 0.7 /CUMM) 0.3 0.3 Absolute Basophils (0.0 - 0.2 /CUMM) 0 0 /02 /06/21 0330 0023 2225 3634 1756 Chemistry Lactic Acid (0.7 - 2.1 mmol/L) 0.6 L 0.7 Troponin I (<0.11 ng/ml) < 0.01 Coagulation PT (9.4 - 12.5 SEC) 27.1 H INR (0.90 - 1.17) 2.61 H APTT (25 - 37 SEC) 40 H Serology Virus Culture Pending 06/21 06/21 1600 1349 Chemistry Sodium (137 - 145 mmol/L) 140 Potassium (3.5 - 5.1 mmol/L) 4.3 Chloride (98 - 107 mmol/L) 104 Carbon Dioxide (22 - 30 mmol/L) 27 Anion Gap (5 - 16) 9 BUN (9 - 20 mg/dL) 16 Creatinine (0.7 - 1.2 mg/dL) 1.1 Estimated GFR (>60 ml/min) > 60 BUN/Creatinine Ratio (7 - 25 %) 14.5 Glucose (65 - 99 mg/dL) 118 H Calcium (8.4 - 10.2 mg/dL) 8.9 Total Bilirubin (0.2 - 1.3 mg/dL) 5.1 H Direct Bilirubin (< 0.4 mg/dL) 2.6 H AST (17 - 59 U/L) 159 H ALT (21 - 72 U/L) 200 H Alkaline Phosphatase (< 127 U/L) 100 Troponin I (<0.11 ng/ml) < 0.01 Total Protein (6.3 - 8.2 g/dL) 6.0 L Albumin (3.5 - 5.0 g/dL) 3.3 L Globulin (1.9 - 4.2 gm/dL) 2.7 Albumin/Globulin Ratio (1.1 - 2.2 %) 1.2 Amylase (30 - 110 U/L) < 30 L Lipase (23 - 300 U/L) 32 Hematology CBC w Diff NO MAN DIFF REQ WBC (4.8 - 10.8 /CUMM) 9.1 RBC (4.70 - 6.10 /CUMM) 4.05 L Hgb (14.0 - 18.0 G/DL) 12.5 L Hct (42 - 52 %) 36.3 L MCV (80.0 - 94.0 FL) 89.8 MCH (27.0 - 31.0 PG) 31.0 MCHC (33.0 - 37.0 G/DL) 34.5 RDW (11.5 - 14.5 %) 13.4 Plt Count (130 - 400 /CUMM) 130 MPV (7.4 - 10.4 FL) 7.6 Gran % (42.2 - 75.2 %) 84.9 H Lymphocytes % (20.5 - 51.1 %) 6.4 L Monocytes % (1.7 - 9.3 %) 7.9 Eosinophils % (0 - 5 %) 0.6 Basophils % (0.0 - 2.0 %) 0.2 Absolute Granulocytes (1.4 - 6.5 /CUMM) 7.7 H Absolute Lymphocytes (1.2 - 3.4 /CUMM) 0.6 L Absolute Monocytes (0.10 - 0.60 /CUMM) 0.7 H Absolute Eosinophils (0.0 - 0.7 /CUMM) 0.1 Absolute Basophils (0.0 - 0.2 /CUMM) 0 Urines Urinalysis LIGHT H Urine Color (YEL,AMB,STR) BROWN H Urine Clarity (CLEAR) HAZY H Urine pH (5.0 - 8.0) 5.5 Ur Specific Sherman (1.001 - 1.035) 1.025 Urine Protein (NEG,<30 MG/DL) 30 H Urine Ketones (NEG) TRACE H Urine Nitrite (NEG) POS H Urine Bilirubin (NEG) POS@ICTO H Urine Urobilinogen (0.1 - 1.0 EU/dl) >=8.0 H Ur Leukocyte Esterase (NEG) NEG Ur Microscopic SEDIMENT EXAMINED Urine WBC (0 - 2 /HPF) RARE Ur Epithelial Cells (NONE,FEW) FEW Urine Bacteria (NEG/NONE) RARE H Urine Hemoglobin (NEG) NEG Urine Glucose (N MG/DL) NEG
[2017-06-24 14:40] VITALS: BP 122/83
[2017-06-24 18:43] LABS: PTT 57 SEC (25-37)
[2017-06-24 21:31] VITALS: BP 145/92
[2017-06-25 06:44] VITALS: BP 150/100
--- NOTE | 2017-06-25 07:51 | PN- Housestaff ---
Subjective Follow-up For: UTI vs Pylonephritis Cholecystitis Rule out cholangitis Subjective: Patient visited today, was lying in bed comfortably in no acute distress, was alert and oriented. was schedualed for cholecystectomy today, however due to high INR was deferred to tomorrow. will start diet. will be NPO tonight for surgery tomororw. No fever or chills, no shortness of breathing, no chest pain, no other events. Review of Systems Constitutional: Reports: see HPI. Objective Last 24 Hrs of Vital Signs/I&O Vital Signs Date Time Temp Pulse Resp B/P B/P Pulse O2 O2 Flow FiO2 Mean Ox Delivery Rate 06/25 09 68 148/96 06/25 0901 68 148/96 06/25 0901 68 148/96 06/25 0644 98.2 65 20 150/100 94 Room Air 06/24 2131 97.9 66 20 145/92 96 / 1440 97.4 71 20 122/83 97 Room Air Intake & Output 06/25 1600 06/25 0800 06/25 0000 Intake Total 300 1222 Output Total 600 Balance 300 622 Intake, IV 300 822 Intake, Oral 400 Number Bowel Movements Output, Urine 600 Physical Exam General Appearance: Alert, Oriented X3, Cooperative, No Acute Distress Skin: No Significant Lesion Skin Temp/Moisture Exam: Warm/Dry Sepsis Skin Exam (color): Normal for Ethnicity HEENT: Atraumatic Cardiovascular: Normal S1, Normal S2 Lungs: Clear to Auscultation, Normal Air Movement Abdomen: Soft, Mild tenderness in left side Neurological: Normal Speech, Left UE and LE 1/5 Extremities: No Edema Current Medications: Current Medications Sig/Miladis Start time Last Medication Dose Route Stop Time Status Admin Acetaminophen 650 MG Q6P PRN 06/22 0130 AC PO Amlodipine Besylate 2.5 MG DAILY 06/22 1000 AC 06/25 PO 0901 Atorvastatin Calcium 20 MG 1700 06/22 1700 AC 06/24 PO 1642 Ceftriaxone Sodium 1,000 MG DAILY 06/22 1000 AC /05 IV 0940 Dextrose/Sodium 1,000 ML Q13H 06/25 0600 DC 06/25 Chloride IV 0549 Escitalopram Oxalate 10 MG DAILY 06/22 1000 AC / PO 0901 Famotidine 20 MG DAILY 06/22 1000 AC / PO 0901 Heparin Sodium 25,000 UNIT Q24H 06/25 1030 AC 06/25 (Porcine) IV 1042 Sodium Chloride 500 ML Heparin Sodium 3,900 UNIT ONE ONE 06/24 193 DC 06/24 (Porcine) IV 06/24 193 1930 Heparin Sodium 25,000 UNIT Q24H 06/23 1415 DC 06/24 (Porcine) IV 06/25 0000 1929 Sodium Chloride 500 ML Levetiracetam 500 MG BID 06/22 1000 AC 06/25 PO 0901 Levothyroxine Sodium 0.125 MG DAILY AC 06/22 0700 AC 06/25 PO 0549 Lisinopril 5 MG DAILY 06/22 1000 AC 06/25 PO 0901 Melatonin 5 MG QPM 06/22 2200 AC 06/24 PO 2102 Metronidazole 500 MG IQ8 06/22 0800 AC 06/25 N/A 1 UNIT IV 0744 Morphine Sulfate 2 MG Q6-PRN PRN 06/22 0130 AC 06/24 IV 1222 Multivitamins 1 TAB DAILY 06/22 1000 AC 06/25 Therapeutic PO 0901 Nystatin 1 EVERETT BID 06/23 0358 AC 06/25 TOP 0901 Polyethylene Glycol 17 GM DAILY 06/25 1330 AC PO Sodium Chloride 1,000 ML Q13H 06/22 0245 DC 06/24 IV 06/25 0000 1632 Tamsulosin HCl 0.8 MG DAILY 06/22 1000 AC 06/25 PO 0901 Last 24 Hrs of Lab/Santosh Results Last 24 Hrs of Labs/Mics: Laboratory Tests 06/25/17 0755: Anion Gap 6, Estimated GFR > 60, BUN/Creatinine Ratio 8.9, Total Bilirubin 1.0, Direct Bilirubin 0.4, AST 65 H, ALT 95 H, Alkaline Phosphatase 165 H, Total Protein 5.3 L, Albumin 2.6 L, PT 18.3 H, INR 1.67 H, APTT 35, CBC w Diff NO MAN DIFF REQ, RBC 3.61 L, MCV 91.0, MCH 31.3 H, MCHC 34.4, RDW 13.3, MPV 7.0 L, Gran % 67.2, Lymphocytes % 16.9 L, Monocytes % 7.1, Eosinophils % 8.1 H, Basophils % 0.7, Absolute Granulocytes 2.6, Absolute Lymphocytes 0.7 L, Absolute Monocytes 0.3, Absolute Eosinophils 0.3, Absolute Basophils 0 06/24/17 1813: APTT 57 H Assessment/Plan Assessment: Patient is a 67 year old male with a PMH significant for seizure disorder on Keppra, 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 Assessment: 1. UTI vs Pylonephritis 2. Acute Cholecystitis/Rule out cholangitis 3. History of DVT 4. History of Hypertension 5. History of Seizures 6. Elevated LFTs Plan: * Continue IV Ceftriaxone and IV Flagyl * Ceftriaxone would cover for his UTI as well, currently cultures are still negative. * Blood cultures have showed no growth so far. * MRCP showed cholecystitis. but no choledocholithiasis seen. No intra or extrahepatic biliary ductal dilatation. * Follow General Surgery * Elective cholecystectomy tomorrow * Will hold Coumadin. Patient has been started on IV heparin. * Continue Keppra * Continue all blood pressure medications. * DVT Prophylaxis: ALPS * Diet: Regular * Code: Full Code. Problem List: 1. Cholecystitis Pain Ratin Pain Location: none Pain Goal: Pain 4 or less Pain Plan: Continue current plan Tomorrow's Labs & Rationales: CBC BEP LEFT INR
[2017-06-25 08:50] LABS: ABSOLUTE BASOPHIL COUNT 0 /CUMM (0.0-0.2); ABSOLUTE EOSINOPHIL COUNT 0.3 /CUMM (0.0-0.7); ABSOLUTE GRANULOCYTE CT 2.6 /CUMM (1.4-6.5); ABSOLUTE LYMPH COUNT 0.7 /CUMM (1.2-3.4); ABSOLUTE MONOCYTE COUNT 0.3 /CUMM (0.10-0.60); BASOPHIL % 0.7 % (0.0-2.0); EOSINOPHIL % 8.1 % (0-5); GRANULOCYTE % 67.2 % (42.2-75.2); HEMATOCRIT 32.8 % (42-52); MEAN CORPUSCULAR HGB 31.3 PG (27.0-31.0); MEAN CORPUSCULAR HGB CONC 34.4 G/DL (33.0-37.0); PLATELET COUNT 145 /CUMM (130-400); PT 18.3 SEC (9.4-12.5); PTT 35 SEC (25-37); RBC DISTRIBUTION WIDTH 13.3 % (11.5-14.5); RED BLOOD CELL CT 3.61 /CUMM (4.70-6.10); WHITE BLOOD CELL COUNT 3.9 /CUMM (4.8-10.8)
--- NOTE | 2017-06-25 10:00 | PN- Att Addend ---
Attending Addendum Attending Brief Note Patient comfortable in bed, was nothing by mouth for surgical procedure this morning, but his INR is still a little bit overweight the surgeon would like to be on will restart the heparin will check with surgery if he can have a clear liquid diet today, and keep nothing by mouth after midnight and as soon as we know the time of the surgery and the INR is acceptable 10 when not went to stop the heparin drip Intake & Output 06/25 1600 06/25 0400 06/24 1600 06/24 0400 06/23 1600 06/23 0400 Intake Total 300 1222 1810 1156 1260 420 Output Total 600 4749 956 5437 350 Balance 300 622 760 556 -290 70 Intake, IV 900 824 3239 756 900 300 Intake, Oral 400 460 400 360 120 Number 0 Bowel Movements Output, Urine 600 6437 216 8463 350 Patient 216 lb Weight Current Medications Sig/Miladis Start time Last Medication Dose Route Stop Time Status Admin Acetaminophen 650 MG Q6P PRN 06/22 0130 AC PO Amlodipine Besylate 2.5 MG DAILY 06/22 1000 AC 06/25 PO 0901 Atorvastatin Calcium 20 MG 1700 06/22 1700 AC 06/24 PO 1642 Ceftriaxone Sodium 1,000 MG DAILY 06/22 1000 AC 06/25 IV 0940 Dextrose/Sodium 1,000 ML Q13H 06/25 0600 AC 06/25 Chloride IV 0549 Escitalopram Oxalate 10 MG DAILY 06/22 1000 AC 06/25 PO 0901 Famotidine 20 MG DAILY 06/22 1000 AC 06/25 PO 0901 Heparin Sodium 3,900 UNIT ONE ONE 06/24 193 DC 06/24 (Porcine) IV 06/24 193 1930 Heparin Sodium 25,000 UNIT Q24H 06/23 1415 DC 06/24 (Porcine) IV 06/25 0000 1929 Sodium Chloride 500 ML Levetiracetam 500 MG BID 06/22 1000 AC 06/25 PO 0901 Levothyroxine Sodium 0.125 MG DAILY AC 06/22 0700 AC 06/25 PO 0549 Lisinopril 5 MG DAILY 06/22 1000 AC 06/25 PO 0901 Melatonin 5 MG QPM 06/22 2200 AC 06/24 PO 2102 Metronidazole 500 MG IQ8 06/22 0800 AC 06/25 N/A 1 UNIT IV 0744 Morphine Sulfate 2 MG Q6-PRN PRN 06/22 0130 AC 06/24 IV 1222 Multivitamins 1 TAB DAILY 06/22 1000 AC 06/25 Therapeutic PO 0901 Nystatin 1 EVERETT BID 06/23 0358 AC 06/25 TOP 0901 Potassium Chloride 40 MEQ ONCE ONE 06/24 1030 DC 06/24 PO 06/24 1031 1101 Sodium Chloride 1,000 ML Q13H 06/22 0245 DC 06/24 IV 06/25 0000 1632 Tamsulosin HCl 0.8 MG DAILY 06/22 1000 AC 06/25 PO 0901 Laboratory Tests 06/25/17 0755: Anion Gap 6, Estimated GFR > 60, BUN/Creatinine Ratio 8.9, Total Bilirubin 1.0, Direct Bilirubin 0.4, AST 65 H, ALT 95 H, Alkaline Phosphatase 165 H, Total Protein 5.3 L, Albumin 2.6 L, PT 18.3 H, INR 1.67 H, APTT 35, CBC w Diff NO MAN DIFF REQ, RBC 3.61 L, MCV 91.0, MCH 31.3 H, MCHC 34.4, RDW 13.3, MPV 7.0 L, Gran % 67.2, Lymphocytes % 16.9 L, Monocytes % 7.1, Eosinophils % 8.1 H, Basophils % 0.7, Absolute Granulocytes 2.6, Absolute Lymphocytes 0.7 L, Absolute Monocytes 0.3, Absolute Eosinophils 0.3, Absolute Basophils 0 06/24/17 1813: APTT 57 H 06/24/17 0815: Anion Gap 7, Estimated GFR > 60, BUN/Creatinine Ratio 12.2, Total Bilirubin 1.3, Direct Bilirubin 0.5 H, AST 41, ALT 88 H, Alkaline Phosphatase 107, Total Protein 5.2 L, Albumin 2.5 L, PT 20.5 H, INR 1.87 H, APTT > 120 *H, CBC w Diff NO MAN DIFF REQ, RBC 3.26 L, MCV 91.5, MCH 31.4 H, MCHC 34.4, RDW 14.0, MPV 7.3 L, Gran % 65.2, Lymphocytes % 19.5 L, Monocytes % 6.2, Eosinophils % 8.3 H, Basophils % 0.8, Absolute Granulocytes 2.8, Absolute Lymphocytes 0.8 L, Absolute Monocytes 0.3, Absolute Eosinophils 0.4, Absolute Basophils 0 06/24/17 0600: PT Cancelled, INR Cancelled 06/23/17 2250: APTT 37 06/23/17 0704: Anion Gap 5, Estimated GFR > 60, BUN/Creatinine Ratio 12.0, Total Bilirubin 1.8 H, Direct Bilirubin 0.5 H, AST 28, ALT 86 H, Alkaline Phosphatase 71, Total Protein 5.2 L, Albumin 2.6 L, PT 19.8 H, INR 1.90 H, CBC w Diff NO MAN DIFF REQ, RBC 3.41 L, MCV 91.9, MCH 31.5 H, MCHC 34.3, RDW 13.1, MPV 7.8, Gran % 73.5, Lymphocytes % 13.6 L, Monocytes % 7.0, Eosinophils % 5.5 H, Basophils % 0.4, Absolute Granulocytes 3.9, Absolute Lymphocytes 0.7 L, Absolute Monocytes 0.4, Absolute Eosinophils 0.3, Absolute Basophils 0
[2017-06-25 15:04] VITALS: BP 150/93
[2017-06-25 19:59] LABS: PTT 58 SEC (25-37)
[2017-06-25 23:03] VITALS: BP 144/83
[2017-06-26 04:48] LABS: PTT 106 SEC (25-37)
[2017-06-26 07:25] VITALS: BP 152/78
[2017-06-26 08:41] LABS: ABSOLUTE BASOPHIL COUNT 0 /CUMM (0.0-0.2); ABSOLUTE EOSINOPHIL COUNT 0.3 /CUMM (0.0-0.7); ABSOLUTE GRANULOCYTE CT 3.5 /CUMM (1.4-6.5); ABSOLUTE LYMPH COUNT 0.7 /CUMM (1.2-3.4); ABSOLUTE MONOCYTE COUNT 0.3 /CUMM (0.10-0.60); BASOPHIL % 0.3 % (0.0-2.0); EOSINOPHIL % 5.4 % (0-5); GRANULOCYTE % 73.2 % (42.2-75.2); HEMATOCRIT 32.4 % (42-52); MEAN CORPUSCULAR HGB 31.2 PG (27.0-31.0); MEAN CORPUSCULAR HGB CONC 34.2 G/DL (33.0-37.0); MEAN CORPUSCULAR VOLUME 91.2 FL (80.0-94.0); MEAN PLATELET VOLUME 6.9 FL (7.4-10.4); PLATELET COUNT 141 /CUMM (130-400); RBC DISTRIBUTION WIDTH 13.4 % (11.5-14.5); RED BLOOD CELL CT 3.56 /CUMM (4.70-6.10); WHITE BLOOD CELL COUNT 4.8 /CUMM (4.8-10.8)
[2017-06-26 08:44] LABS: PT 18.3 SEC (9.4-12.5); PTT 63 SEC (25-37)
--- NOTE | 2017-06-26 10:16 | PN- Att Addend ---
Attending Addendum Attending Brief Note Patient resting comfortably in bed vital signs are stable no fever. No changes on physical. Patient's white count today was 4800 and his INR 1.67 still over 1.5 so the surgery was deferred until at least tomorrow. Tinea present treatments. Intake & Output 06/26 1600 06/26 0400 06/25 1600 06/25 0400 06/24 1600 06/24 0400 Intake Total 731 056 1671 1222 1810 1156 Output Total 750 630 911 005 5666 600 Balance -450 -80 1004 622 760 556 Intake, IV 300 150 912 033 0279 756 Intake, Oral 400 1200 400 460 400 Number 0 Bowel Movements Output, Urine 750 630 059 047 0993 600 Current Medications Sig/Miladis Start time Last Medication Dose Route Stop Time Status Admin Acetaminophen 650 MG Q6P PRN 06/22 0130 AC PO Amlodipine Besylate 2.5 MG DAILY 06/22 1000 AC 06/25 PO 0901 Atorvastatin Calcium 20 MG 1700 06/22 1700 AC 06/25 PO 1756 Ceftriaxone Sodium 1,000 MG DAILY 06/22 1000 DC 06/25 IV 0940 Dextrose/Sodium 1,000 ML Q13H 06/25 06 DC 06/25 Chloride IV 0549 Escitalopram Oxalate 10 MG DAILY 06/22 1000 AC 06/25 PO 0901 Famotidine 20 MG DAILY 06/22 1000 AC 06/25 PO 0901 Heparin Sodium 5,000 UNIT .STK-MED ONE 06/26 2151 DC (Porcine) IV 06/25 2152 Heparin Sodium 5,000 UNIT .STK-MED ONE 06/25 2146 DC (Porcine) IV 06/26 2147 Heparin Sodium 7,856 UNIT BOLUS ONE 06/25 2109 DC 06/25 (Porcine) IV 06/25 Heparin Sodium 25,000 UNIT Q24H 06/25 1030 DC 06/25 (Porcine) IV 2214 Sodium Chloride 500 ML Levetiracetam 500 MG BID 06/22 1000 AC 06/25 PO 2327 Levothyroxine Sodium 0.125 MG DAILY AC 06/22 0700 AC 06/26 PO 0638 Lisinopril 5 MG DAILY 06/22 1000 AC 06/25 PO 0901 Melatonin 5 MG .STK-MED ONE 06/26 2151 DC PO 06/25 2153 Melatonin 5 MG QPM 06/22 2200 AC 06/25 PO 2206 Metronidazole 500 MG IQ8 06/22 0800 AC 06/26 N/A 1 UNIT IV 0839 Morphine Sulfate 2 MG Q6-PRN PRN 06/22 0130 06/24 IV 1222 Multivitamins 1 TAB DAILY 06/22 1000 AC 06/25 Therapeutic PO 0901 Nystatin 1 EVERETT BID 06/23 0358 06/25 TOP 2207 Patient Medication 1 ED ONE ONE 06/25 1600 NE Teaching ED 06/25 1601 Polyethylene Glycol 17 GM DAILY 06/25 1330 AC 06/25 PO 1436 Tamsulosin HCl 0.8 MG DAILY 06/22 1000 AC 06/25 PO 0901 Laboratory Tests 06/26/17 0750: Anion Gap 9, Estimated GFR > 60, BUN/Creatinine Ratio 7.8, Total Bilirubin 1.0, Direct Bilirubin 0.3, AST 86 H, ALT 92 H, Alkaline Phosphatase 139 H, Total Protein 5.2 L, Albumin 2.6 L, PT 18.3 H, INR 1.67 H, APTT 63 H, CBC w Diff NO MAN DIFF REQ, RBC 3.56 L, MCV 91.2, MCH 31.2 H, MCHC 34.2, RDW 13.4, MPV 6.9 L, Gran % 73.2, Lymphocytes % 14.6 L, Monocytes % 6.5, Eosinophils % 5.4 H, Basophils % 0.3, Absolute Granulocytes 3.5, Absolute Lymphocytes 0.7 L, Absolute Monocytes 0.3, Absolute Eosinophils 0.3, Absolute Basophils 0 06/26/17 0415: APTT 106 *H 06/25/17 1840: APTT 58 H 06/25/17 0755: Anion Gap 6, Estimated GFR > 60, BUN/Creatinine Ratio 8.9, Total Bilirubin 1.0, Direct Bilirubin 0.4, AST 65 H, ALT 95 H, Alkaline Phosphatase 165 H, Total Protein 5.3 L, Albumin 2.6 L, PT 18.3 H, INR 1.67 H, APTT 35, CBC w Diff NO MAN DIFF REQ, RBC 3.61 L, MCV 91.0, MCH 31.3 H, MCHC 34.4, RDW 13.3, MPV 7.0 L, Gran % 67.2, Lymphocytes % 16.9 L, Monocytes % 7.1, Eosinophils % 8.1 H, Basophils % 0.7, Absolute Granulocytes 2.6, Absolute Lymphocytes 0.7 L, Absolute Monocytes 0.3, Absolute Eosinophils 0.3, Absolute Basophils 0 06/24/17 1813: APTT 57 H 06/24/17 0815: Anion Gap 7, Estimated GFR > 60, BUN/Creatinine Ratio 12.2, Total Bilirubin 1.3, Direct Bilirubin 0.5 H, AST 41, ALT 88 H, Alkaline Phosphatase 107, Total Protein 5.2 L, Albumin 2.5 L, PT 20.5 H, INR 1.87 H, APTT > 120 *H, CBC w Diff NO MAN DIFF REQ, RBC 3.26 L, MCV 91.5, MCH 31.4 H, MCHC 34.4, RDW 14.0, MPV 7.3 L, Gran % 65.2, Lymphocytes % 19.5 L, Monocytes % 6.2, Eosinophils % 8.3 H, Basophils % 0.8, Absolute Granulocytes 2.8, Absolute Lymphocytes 0.8 L, Absolute Monocytes 0.3, Absolute Eosinophils 0.4, Absolute Basophils 0 06/24/17 0600: PT Cancelled, INR Cancelled 06/23/17 2250: APTT 37 Vital Signs Date Time Temp Pulse Resp B/P B/P Pulse O2 O2 Flow FiO2 Mean Ox Delivery Rate 06/26 0725 98.1 64 20 152/78 95 Room Air 06/25 2303 97.9 64 20 144/83 93 Room Air 06/25 1504 97.9 65 20 150/93 95
--- NOTE | 2017-06-26 11:20 | PN- Housestaff ---
Subjective Follow-up For: Cholecystitis UTI Subjective: Patient visited today, was lying in bed comfortably in no acute distress, was alert and oriented. Planned for cholecystectomy today, INR was still 1.67 which was similar to yesterday. Complicated with surgery and recommended to do a fast reverse with 1FFP. No fever or chills, no shortness of breathing, no chest pain, no other events. Planned for surgery today. Review of Systems Constitutional: Reports: see HPI. Objective Last 24 Hrs of Vital Signs/I&O Vital Signs Date Time Temp Pulse Resp B/P B/P Pulse O2 O2 Flow FiO2 Mean Ox Delivery Rate 06/26 1140 98.1 64 20 152/78 03/ 1138 98.1 64 20 152/78 03/ 1138 98.1 64 20 152/78 03/ 0725 98.1 64 20 152/78 95 Room Air 03/ 2303 97.9 64 20 144/83 93 Room Air 03/ 1504 97.9 65 20 150/93 95 Intake & Output 06/26 1600 / 0800 03 0000 Intake Total 300 550 Output Total 700 500 630 Balance -700 -200 -80 Intake, IV 300 150 Intake, Oral 400 Output, Urine 700 500 630 Physical Exam General Appearance: Alert, Oriented X3, Cooperative, No Acute Distress Skin Temp/Moisture Exam: Warm/Dry Sepsis Skin Exam (color): Normal for Ethnicity HEENT: Atraumatic Cardiovascular: Normal S1, Normal S2 Lungs: Clear to Auscultation, Normal Air Movement Abdomen: Soft, Mild tenderness in deep palpitation Neurological: grossly no change compared to yesterday Left UE and LE 1/5 Extremities: No Edema Current Medications: Current Medications Sig/Miladis Start time Last Medication Dose Route Stop Time Status Admin Acetaminophen 650 MG Q6P PRN 06/22 0130 AC PO Amlodipine Besylate 2.5 MG DAILY 06/22 1000 AC / PO 1140 Atorvastatin Calcium 20 MG 1700 06/22 1700 AC / PO 1756 Ceftriaxone Sodium 1,000 MG DAILY 06/22 1000 DC 06/25 IV 0940 Escitalopram Oxalate 10 MG DAILY 06/22 1000 AC / PO 1137 Famotidine 20 MG DAILY / 1000 AC 06/26 PO 1139 Heparin Sodium 5,000 UNIT .STK-MED ONE 06/26 2151 DC (Porcine) IV 06/25 2152 Heparin Sodium 5,000 UNIT .STK-MED ONE 06/25 2146 DC (Porcine) IV 06/26 2147 Heparin Sodium 7,856 UNIT BOLUS ONE 06/25 2109 DC 06/25 (Porcine) IV 06/25 Heparin Sodium 25,000 UNIT Q24H 06/25 1030 DC 06/25 (Porcine) IV 2214 Sodium Chloride 500 ML Levetiracetam 500 MG BID 06/22 1000 AC 06/26 PO 1138 Levothyroxine Sodium 0.125 MG DAILY AC 06/22 0700 AC 06/26 PO 0638 Lisinopril 5 MG DAILY 06/22 1000 AC 06/26 PO 1138 Melatonin 5 MG .STK-MED ONE 06/26 2151 DC PO 06/25 215 Melatonin 5 MG QPM 06/22 2200 AC 06/25 PO 2206 Metronidazole 500 MG IQ8 06/22 0800 AC 06/26 N/A 1 UNIT IV 0839 Morphine Sulfate 2 MG Q6-PRN PRN 06/22 0130 AC 06/24 IV 1222 Multivitamins 1 TAB DAILY 06/22 1000 AC 06/26 Therapeutic PO 1138 Nystatin 1 EVERETT BID 06/23 0358 AC 06/26 TOP 1140 Patient Medication 1 ED ONE ONE 06/25 1600 DC Teaching ED 06/25 1601 Polyethylene Glycol 17 GM DAILY 06/25 1330 AC 06/26 PO 1140 Tamsulosin HCl 0.8 MG DAILY 06/22 1000 AC 06/26 PO 1138 Last 24 Hrs of Lab/Santosh Results Last 24 Hrs of Labs/Mics: Laboratory Tests 06/26/17 1100: APTT Cancelled 06/26/17 0750: Anion Gap 9, Estimated GFR > 60, BUN/Creatinine Ratio 7.8, Total Bilirubin 1.0, Direct Bilirubin 0.3, AST 86 H, ALT 92 H, Alkaline Phosphatase 139 H, Total Protein 5.2 L, Albumin 2.6 L, PT 18.3 H, INR 1.67 H, APTT 63 H, CBC w Diff NO MAN DIFF REQ, RBC 3.56 L, MCV 91.2, MCH 31.2 H, MCHC 34.2, RDW 13.4, MPV 6.9 L, Gran % 73.2, Lymphocytes % 14.6 L, Monocytes % 6.5, Eosinophils % 5.4 H, Basophils % 0.3, Absolute Granulocytes 3.5, Absolute Lymphocytes 0.7 L, Absolute Monocytes 0.3, Absolute Eosinophils 0.3, Absolute Basophils 0 06/26/17 0415: APTT 106 *H 06/25/17 1840: APTT 58 H Assessment/Plan Assessment: Patient is a 67 year old male with a PMH significant for seizure disorder on Keppra, 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 Assessment: 1. UTI vs Pylonephritis 2. Acute Cholecystitis/Rule out cholangitis 3. History of DVT 4. History of Hypertension 5. History of Seizures 6. Elevated LFTs Plan: * Continue IV Ceftriaxone and IV Flagyl * Ceftriaxone would cover for his UTI as well, currently cultures are still negative. * Blood cultures have showed no growth so far. * MRCP showed cholecystitis. but no choledocholithiasis seen. No intra or extrahepatic biliary ductal dilatation. * Follow General Surgery * Elective cholecystectomy today * FFP to reverse INR * Will hold Coumadin. Patient has been started on IV heparin, planned to hold temprorily before surgery * Continue Keppra * Continue all blood pressure medications. * DVT Prophylaxis: ALPS * Diet: Regular * Code: Full Code. Problem List: 1. Cholecystitis Pain Ratin Pain Location: None Pain Goal: Pain 4 or less Pain Plan: Continue current plan Tomorrow's Labs & Rationales: CBC BEP, INR
[2017-06-26 21:53] VITALS: BP 132/84
--- NOTE | 2017-06-26 23:31 | PN- General Surgery ---
Subjective Subjective: Postop check: Sleepy but arousable, mild pain right upper quadrant Objective Vital Signs and I&Os Vital Signs Date Time Temp Pulse Resp B/P B/P Pulse O2 O2 Flow FiO2 Mean Ox Delivery Rate 06/26 2153 97.7 81 18 132/84 94 Room Air / 1140 98.1 64 20 152/78 /06 1138 98.1 64 20 152/78 / 1138 98.1 64 20 152/78 03/06 0725 98.1 64 20 152/78 95 Room Air Intake & Output 06/26 1600 06/26 0800 / 0000 / 1600 06/25 0800 03/ 0000 Intake Total 150 754 247 8024 300 1222 Output Total 700 500 630 900 600 Balance -550 -200 -80 704 300 622 Intake, IV 120 300 150 404 300 822 Intake, Oral 30 400 1200 400 Number 0 Bowel Movements Output, Urine 700 500 630 900 600 Physical Exam: Well-developed well-nourished no apparent distress. HEENT: Atraumatic, extraocular motion intact Neck: Supple, no lymphadenopathy Respiratory: No respiratory distress Abdomen: Incision site is clean dry and intact. Tenderness in right upper quadrant and epigastric region as expected. Positive bowel sounds. Extremities: No edema, no calf pain Neuro: Alert and oriented x3 Psych: Mood affect normal, normal memory normal judgment. Skin: Warm and dry, no rash on exposed skin Assessment/Plan Assessment/Plan Postop day #0 status post laparoscopic cholecystectomy Surgically, the patient is stable. Clear liquid diet tonight, advance as tolerated. Pain medication as needed. IV fluids until tolerating adequate by mouth . Preoperative antibiotics for 23 hours. Restart heparin tomorrow morning at 8 AM oob Will follow
[2017-06-27 07:35] VITALS: BP 140/82
--- NOTE | 2017-06-27 07:56 | PN- Housestaff ---
Subjective Follow-up For: Cholecystitis UTI Subjective: Patient visited today, was lying in bed comfortably in no acute distress, was alert and oriented. is POD 1 of laparoscopic cholecystectomy yesterday. No fever or chills, no shortness of breathing, no chest pain, no other events. reported minimal abdominal pain after surgery. IV heparin was restarted. we will plan to advance diet to full liquid and start Coumadin if CBCs stable. Review of Systems Constitutional: Reports: see HPI. Objective Last 24 Hrs of Vital Signs/I&O Vital Signs Date Time Temp Pulse Resp B/P B/P Pulse O2 O2 Flow FiO2 Mean Ox Delivery Rate 06/28 819 134/80 06/27 818 134/80 06/27 818 134/80 06/28 799 Nasal 2.0L Cannula 06/27 734 98.1 80 20 140/82 93 Room Air 06/26 2153 97.7 81 18 132/84 94 Room Air Intake & Output 06/27 1600 06/27 0800 06/27 0000 Intake Total 700 500 450 Output Total 300 600 400 Balance 400 -100 50 Intake, IV 500 400 200 Intake, Oral 200 100 250 Number 0 Bowel Movements Output, Urine 300 600 400 Physical Exam General Appearance: Alert, Oriented X3, Cooperative, No Acute Distress Skin Temp/Moisture Exam: Warm/Dry Sepsis Skin Exam (color): Normal for Ethnicity HEENT: Atraumatic, Mucous Membr. moist/pink Cardiovascular: Normal S1, Normal S2 Lungs: Clear to Auscultation, Normal Air Movement Abdomen: Soft, scar of scope, minimal tenderness around the site of scope Neurological: Normal Speech, grossly no change compared to yesterday hemiparalysis baseline Current Medications: Current Medications Sig/Miladis Start time Last Medication Dose Route Stop Time Status Admin Acetaminophen 650 MG Q6P PRN 06/26 1730 AC PO Acetaminophen 650 MG Q6P PRN 06/22 0130 DC PO Amlodipine Besylate 2.5 MG DAILY 06/27 1000 AC 06/27 PO 0820 Amlodipine Besylate 2.5 MG DAILY 06/22 1000 DC 06/26 PO 1140 Atorvastatin Calcium 20 MG 1700 06/27 1700 AC PO Atorvastatin Calcium 20 MG 1700 06/22 1700 DC 06/25 PO 1756 Ceftriaxone Sodium 1,000 MG DAILY 06/27 1000 CAN IV Ceftriaxone Sodium 1,000 MG DAILY 03/07 1000 AC 03 IV 0818 Dextrose/Sodium 1,000 ML Q20H / 1815 AC 03 Chloride IV 1226 Escitalopram Oxalate 10 MG DAILY 06/27 1000 AC 06/27 PO 0819 Escitalopram Oxalate 10 MG DAILY 06/22 1000 DC 06/26 PO 1137 Famotidine 20 MG DAILY 06/27 1000 AC 06/27 PO 0819 Famotidine 20 MG DAILY / 1000 DC 06/26 PO 1139 Heparin Sodium 25,000 UNIT Q24H 06/27 0800 AC 06/27 (Porcine) IV 0805 Sodium Chloride 500 ML Levetiracetam 500 MG BID 06/26 2200 AC 06/27 PO 0819 Levetiracetam 500 MG BID 06/22 1000 DC 06/26 PO 1138 Levothyroxine Sodium 0.125 MG DAILY AC 06/27 0700 AC 06/27 PO 0559 Levothyroxine Sodium 0.125 MG DAILY AC 06/22 0700 DC 06/26 PO 0638 Lisinopril 5 MG DAILY 06/27 1000 AC 06/27 PO 0819 Lisinopril 5 MG DAILY 06/22 1000 DC 06/26 PO 1138 Melatonin 5 MG QPM 06/26 2200 AC PO Melatonin 5 MG QPM 06/22 2200 DC 06/25 PO 2206 Metronidazole 500 MG IQ8 06/27 0000 AC 06/27 N/A 1 UNIT IV 0820 Metronidazole 500 MG IQ8 06/22 0800 DC 06/26 N/A 1 UNIT IV 0839 Morphine Sulfate 2 MG Q6-PRN PRN 06/26 1730 AC 06/27 IV 0558 Morphine Sulfate 2 MG Q6-PRN PRN 06/22 0130 DC 06/24 IV 1222 Multivitamins 1 TAB DAILY 06/27 1000 AC 06/27 Therapeutic PO 0819 Multivitamins 1 TAB DAILY / 1000 DC 06/26 Therapeutic PO 1138 Nystatin 1 EVERETT BID 06/26 2200 AC 06/27 TOP 0827 Nystatin 1 EVERETT BID 06/23 0358 DC 06/26 TOP 1140 Patient Medication 1 ED ONE ONE 06/27 1145 DC 06/27 Teaching ED 06/27 1146 1226 Polyethylene Glycol 17 GM DAILY 06/27 1000 AC 06/27 PO 0818 Polyethylene Glycol 17 GM DAILY 06/25 1330 DC 06/26 PO 1140 Tamsulosin HCl 0.8 MG DAILY 06/27 1000 AC 06/27 PO 0819 Tamsulosin HCl 0.8 MG DAILY 06/22 1000 DC 06/26 PO 1138 Last 24 Hrs of Lab/Santosh Results Last 24 Hrs of Labs/Mics: Laboratory Tests 06/27/17 1345: APTT Pending 06/27/17 0741: Anion Gap 8, Estimated GFR > 60, BUN/Creatinine Ratio 7.5, Phosphorus 2.7, Magnesium 1.5 L, Total Bilirubin 0.7, Direct Bilirubin 0.4, AST 110 H, ALT 102 H, Alkaline Phosphatase 106, Total Protein 5.2 L, Albumin 2.6 L, PT 19.1 H, INR 1.74 H, CBC w Diff NO MAN DIFF REQ, RBC 3.43 L, MCV 91.4, MCH 31.5 H, MCHC 34.5, RDW 13.6, MPV 6.9 L, Gran % 84.3 H, Lymphocytes % 8.0 L, Monocytes % 6.1, Eosinophils % 1.6, Basophils % 0, Absolute Granulocytes 6.0, Absolute Lymphocytes 0.6 L, Absolute Monocytes 0.4, Absolute Eosinophils 0.1, Absolute Basophils 0 Assessment/Plan Assessment: Patient is a 67 year old male with a PMH significant for seizure disorder on Keppra, 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 Assessment: 1. UTI vs Pylonephritis 2. Acute Cholecystitis/Rule out cholangitis 3. History of DVT 4. History of Hypertension 5. History of Seizures 6. Elevated LFTs Plan: * Continue IV Ceftriaxone and IV Flagyl * Ceftriaxone would cover for his UTI as well, currently cultures are still negative. * consider stop AB, POD 1 surgery * Laparoscopic cholecystectomy performed on 06/26 2017: * Blood cultures have showed no growth so far. * MRCP showed cholecystitis. but no choledocholithiasis seen. No intra or extrahepatic biliary ductal dilatation. * Follow General Surgery * FFP transfused based on surgery recomendation to reverse INR * Will hold Coumadin. Patient has been restarted on IV heparin, consider to start Coumadin is CBCs stable * Continue Keppra * Continue all blood pressure medications. * DVT Prophylaxis: ALPS * Diet: full liquid diet * Code: Full Code. Problem List: 1. Cholecystitis Pain Ratin Pain Location: abdominal Pain Goal: Pain 4 or less Pain Plan: Continue current plan Tomorrow's Labs & Rationales: CBC BEP LFT INR
[2017-06-27 08:35] LABS: ABSOLUTE BASOPHIL COUNT 0 /CUMM (0.0-0.2); ABSOLUTE EOSINOPHIL COUNT 0.1 /CUMM (0.0-0.7); ABSOLUTE LYMPH COUNT 0.6 /CUMM (1.2-3.4); ABSOLUTE MONOCYTE COUNT 0.4 /CUMM (0.10-0.60); BASOPHIL % 0 % (0.0-2.0); EOSINOPHIL % 1.6 % (0-5); GRANULOCYTE % 84.3 % (42.2-75.2); HEMATOCRIT 31.4 % (42-52); MEAN CORPUSCULAR HGB 31.5 PG (27.0-31.0); MEAN CORPUSCULAR HGB CONC 34.5 G/DL (33.0-37.0); MEAN CORPUSCULAR VOLUME 91.4 FL (80.0-94.0); MEAN PLATELET VOLUME 6.9 FL (7.4-10.4); PLATELET COUNT 146 /CUMM (130-400); RBC DISTRIBUTION WIDTH 13.6 % (11.5-14.5); RED BLOOD CELL CT 3.43 /CUMM (4.70-6.10); WHITE BLOOD CELL COUNT 7.1 /CUMM (4.8-10.8)
[2017-06-27 08:39] LABS: PT 19.1 SEC (9.4-12.5)
--- NOTE | 2017-06-27 13:57 | PN- Att Addend ---
Attending Addendum Attending Brief Note Patient had his laparoscopic cholecystectomy. According to surgery was a difficult procedure to old inflammation but patient did well resting comfortably in bed. Vital signs are stable, no fever, back on his heparin drip. INR is still not therapeutic. Once the INR is therapeutic with the Coumadin and start disposition plans also follow liver function tests and CBC for stability. Intake & Output 06/27 1600 06/27 0400 06/26 1600 06/26 0400 06/25 1600 06/25 0400 Intake Total 500 450 545 711 6030 1222 Output Total 436 014 2144 630 900 600 Balance 0 -350 -750 -80 1004 622 Intake, IV 400 200 420 150 704 822 Intake, Oral 100 250 30 400 1200 400 Number 0 0 Bowel Movements Output, Urine 230 786 8574 630 900 600 Current Medications Sig/Miladis Start time Last Medication Dose Route Stop Time Status Admin Acetaminophen 650 MG Q6P PRN 06/26 1730 AC PO Acetaminophen 650 MG Q6P PRN 06/22 0130 DC PO Amlodipine Besylate 2.5 MG DAILY 06/27 1000 AC 06/27 PO 0820 Amlodipine Besylate 2.5 MG DAILY 06/22 1000 DC 06/26 PO 1140 Atorvastatin Calcium 20 MG 1700 06/27 1700 AC PO Atorvastatin Calcium 20 MG 1700 / 1700 DC 06/25 PO 1756 Ceftriaxone Sodium 1,000 MG DAILY 06/27 1000 CAN IV Ceftriaxone Sodium 1,000 MG DAILY 06/27 1000 AC 06/27 IV 0818 Dextrose/Sodium 1,000 ML Q20H / 1815 AC 06/27 Chloride IV 1226 Escitalopram Oxalate 10 MG DAILY 06/27 1000 AC 06/27 PO 0819 Escitalopram Oxalate 10 MG DAILY 06/22 1000 DC 06/26 PO 1137 Famotidine 20 MG DAILY 06/27 1000 AC 06/27 PO 0819 Famotidine 20 MG DAILY / 1000 DC 06/26 PO 1139 Heparin Sodium 25,000 UNIT Q24H 06/27 0800 AC 06/27 (Porcine) IV 0805 Sodium Chloride 500 ML Levetiracetam 500 MG BID 06/26 2200 AC 06/27 PO 0819 Levetiracetam 500 MG BID / 1000 DC 06/26 PO 1138 Levothyroxine Sodium 0.125 MG DAILY AC 06/27 0700 AC 06/27 PO 0559 Levothyroxine Sodium 0.125 MG DAILY AC 06/22 0700 DC 06/26 PO 0638 Lisinopril 5 MG DAILY 06/27 1000 AC 06/27 PO 0819 Lisinopril 5 MG DAILY 06/22 1000 DC 06/26 PO 1138 Melatonin 5 MG QPM 06/26 2200 AC PO Melatonin 5 MG QPM 06/22 2200 DC 06/25 PO 2206 Metronidazole 500 MG IQ8 06/27 0000 AC 06/27 N/A 1 UNIT IV 0820 Metronidazole 500 MG IQ8 06/22 0800 DC 06/26 N/A 1 UNIT IV 0839 Morphine Sulfate 2 MG Q6-PRN PRN 06/26 1730 AC 06/27 IV 0558 Morphine Sulfate 2 MG Q6-PRN PRN 06/22 0130 DC 06/24 IV 1222 Multivitamins 1 TAB DAILY 06/27 1000 AC 06/27 Therapeutic PO 0819 Multivitamins 1 TAB DAILY 06/22 1000 DC 06/26 Therapeutic PO 1138 Nystatin 1 EVERETT BID 06/26 2200 AC 06/27 TOP 0827 Nystatin 1 EVERETT BID 06/23 0358 DC 06/26 TOP 1140 Patient Medication 1 ED ONE ONE 06/27 1145 DC 06/27 Teaching ED 06/27 1146 1226 Polyethylene Glycol 17 GM DAILY 06/27 1000 AC 06/27 PO 0818 Polyethylene Glycol 17 GM DAILY 06/25 1330 DC 06/26 PO 1140 Tamsulosin HCl 0.8 MG DAILY 06/27 1000 AC 06/27 PO 0819 Tamsulosin HCl 0.8 MG DAILY 06/22 1000 DC 06/26 PO 1138 Laboratory Tests 06/27/17 1345: APTT Pending 06/27/17 0741: Anion Gap 8, Estimated GFR > 60, BUN/Creatinine Ratio 7.5, Phosphorus 2.7, Magnesium 1.5 L, Total Bilirubin 0.7, Direct Bilirubin 0.4, AST 110 H, ALT 102 H, Alkaline Phosphatase 106, Total Protein 5.2 L, Albumin 2.6 L, PT 19.1 H, INR 1.74 H, CBC w Diff NO MAN DIFF REQ, RBC 3.43 L, MCV 91.4, MCH 31.5 H, MCHC 34.5, RDW 13.6, MPV 6.9 L, Gran % 84.3 H, Lymphocytes % 8.0 L, Monocytes % 6.1, Eosinophils % 1.6, Basophils % 0, Absolute Granulocytes 6.0, Absolute Lymphocytes 0.6 L, Absolute Monocytes 0.4, Absolute Eosinophils 0.1, Absolute Basophils 0 06/26/17 1100: APTT Cancelled 06/26/17 0750: Anion Gap 9, Estimated GFR > 60, BUN/Creatinine Ratio 7.8, Total Bilirubin 1.0, Direct Bilirubin 0.3, AST 86 H, ALT 92 H, Alkaline Phosphatase 139 H, Total Protein 5.2 L, Albumin 2.6 L, PT 18.3 H, INR 1.67 H, APTT 63 H, CBC w Diff NO MAN DIFF REQ, RBC 3.56 L, MCV 91.2, MCH 31.2 H, MCHC 34.2, RDW 13.4, MPV 6.9 L, Gran % 73.2, Lymphocytes % 14.6 L, Monocytes % 6.5, Eosinophils % 5.4 H, Basophils % 0.3, Absolute Granulocytes 3.5, Absolute Lymphocytes 0.7 L, Absolute Monocytes 0.3, Absolute Eosinophils 0.3, Absolute Basophils 0 06/26/17 0415: APTT 106 *H 06/25/17 1840: APTT 58 H 06/25/17 0755: Anion Gap 6, Estimated GFR > 60, BUN/Creatinine Ratio 8.9, Total Bilirubin 1.0, Direct Bilirubin 0.4, AST 65 H, ALT 95 H, Alkaline Phosphatase 165 H, Total Protein 5.3 L, Albumin 2.6 L, PT 18.3 H, INR 1.67 H, APTT 35, CBC w Diff NO MAN DIFF REQ, RBC 3.61 L, MCV 91.0, MCH 31.3 H, MCHC 34.4, RDW 13.3, MPV 7.0 L, Gran % 67.2, Lymphocytes % 16.9 L, Monocytes % 7.1, Eosinophils % 8.1 H, Basophils % 0.7, Absolute Granulocytes 2.6, Absolute Lymphocytes 0.7 L, Absolute Monocytes 0.3, Absolute Eosinophils 0.3, Absolute Basophils 0 06/24/17 1813: APTT 57 H Vital Signs Date Time Temp Pulse Resp B/P B/P Pulse O2 O2 Flow FiO2 Mean Ox Delivery Rate 06/28 819 134/80 06/27 818 134/80 06/27 0819 134/80 06/27 0800 Nasal 2.0L Cannula 06/27 734 98.1 80 20 140/82 93 Room Air 06/26 2153 97.7 81 18 132/84 94 Room Air
[2017-06-27 14:27] VITALS: BP 92/69
[2017-06-27 14:32] VITALS: BP 130/80
[2017-06-27 15:11] LABS: PTT 58 SEC (25-37)
[2017-06-27 21:38] VITALS: BP 109/72
[2017-06-28 06:28] VITALS: BP 120/70
--- NOTE | 2017-06-28 07:55 | PN- Housestaff ---
Subjective Follow-up For: Cholecystitis UTI Subjective: Patient visited today, was lying in bed comfortably in no acute distress, was alert and oriented. is POD 2 of laparoscopic cholecystectomy. No fever or chills, no shortness of breathing, no chest pain, no other events. requested to advance diet, he was advanced to full liq diet for dinner which he tolerated, will advance to heart healthy diet. Had conversation with Dr Gomes by oncall team, IV heparin discontinued and Coumadin started. Surgery and GI were contacted to recommend regarding discharge regimen. Review of Systems Constitutional: Reports: see HPI. Objective Last 24 Hrs of Vital Signs/I&O Vital Signs Date Time Temp Pulse Resp B/P B/P Pulse O2 O2 Flow FiO2 Mean Ox Delivery Rate 06/28 906 120/70 06/28 09 120/70 06/28 09 120/70 06/28 0628 98.6 81 20 120/70 90 Room Air 06/27 2138 98.7 86 20 109/72 88 Room Air 06/27 1600 Nasal 2.0L Cannula 06/27 1432 130/80 06/27 1427 97.9 79 18 92/69 95 Intake & Output 06/28 1600 08 0800 / 0000 Intake Total 520 690 Output Total 100 950 250 Balance -100 -430 440 Intake, IV 400 150 Intake, Oral 120 540 Output, Urine 100 950 250 Physical Exam General Appearance: Alert, Oriented X3, Cooperative, No Acute Distress Skin Temp/Moisture Exam: Warm/Dry Sepsis Skin Exam (color): Normal for Ethnicity HEENT: Atraumatic, Mucous Membr. moist/pink Cardiovascular: Normal S1, Normal S2 Lungs: Clear to Auscultation, Normal Air Movement Abdomen: Soft, minimial tenderness Neurological: Normal Speech, grossly no chnage Extremities: No Edema Current Medications: Current Medications Sig/Miladis Start time Last Medication Dose Route Stop Time Status Admin Acetaminophen 650 MG Q6P PRN 06/26 1730 AC PO Amlodipine Besylate 2.5 MG DAILY 06/27 1000 AC 06/28 PO 0907 Atorvastatin Calcium 20 MG 1700 06/27 1700 AC 06/27 PO 1658 Ceftriaxone Sodium 1,000 MG DAILY 06/27 1000 AC 06/28 IV 0908 Dextrose/Sodium 1,000 ML Q20H 06/26 1815 DC 06/27 Chloride IV 1226 Escitalopram Oxalate 10 MG DAILY 06/27 1000 AC 06/28 PO 0907 Famotidine 20 MG DAILY 06/27 1000 AC 06/28 PO 0907 Heparin Sodium 3,916 UNIT ONCE ONE 06/27 1520 DC 06/27 (Porcine) IV 06/27 1521 1537 Heparin Sodium 25,000 UNIT Q24H 06/27 0800 DC 06/27 (Porcine) IV 1522 Sodium Chloride 500 ML Levetiracetam 500 MG BID 06/26 2200 AC 06/28 PO 0907 Levothyroxine Sodium 0.125 MG DAILY AC 06/27 0700 AC 06/28 PO 0607 Lisinopril 5 MG DAILY 06/27 1000 AC 06/28 PO 0907 Magnesium Sulfate 1 GM Q2H 06/27 1745 DC 06/27 Dextrose/Water 100 ML IV 06/27 2144 2054 Melatonin 5 MG QPM 06/26 2200 AC 06/27 PO 2054 Metronidazole 500 MG IQ8 06/27 0000 AC 06/28 N/A 1 UNIT IV 0907 Morphine Sulfate 2 MG Q6-PRN PRN 06/26 1730 AC 06/28 IV 0607 Multivitamins 1 TAB DAILY 06/27 1000 AC 06/28 Therapeutic PO 0907 Nystatin 1 EVERETT BID 06/26 2200 AC 06/28 TOP 0908 Patient Medication 1 ED ONE ONE 06/27 1145 DC 06/27 Teaching ED 06/27 1146 1226 Polyethylene Glycol 17 GM DAILY 06/27 1000 AC 06/28 PO 0912 Potassium Chloride 40 MEQ ONCE ONE 06/27 1745 DC 06/27 PO 06/27 1746 1845 Tamsulosin HCl 0.8 MG DAILY 06/27 1000 AC 06/28 PO 0907 Warfarin Sodium 7.5 MG COUMADIN 1700 ONE 06/27 1730 DC 06/27 PO 06/27 1731 1846 Last 24 Hrs of Lab/Santosh Results Last 24 Hrs of Labs/Mics: Laboratory Tests 06/28/17 0755: Anion Gap 6, Estimated GFR > 60, BUN/Creatinine Ratio 5.0 L, Total Bilirubin 0.5, Direct Bilirubin 0.3, AST 73 H, ALT 87 H, Alkaline Phosphatase 96, Total Protein 4.8 L, Albumin 2.5 L, PT 20.1 H, INR 1.83 H, CBC w Diff Pending, WBC Pending, RBC Pending, Hgb Pending, Hct Pending, MCV Pending, MCH Pending, MCHC Pending, RDW Pending, Plt Count Pending, MPV Pending 06/27/17 2120: APTT Cancelled 06/27/17 1345: APTT 58 H Assessment/Plan Assessment: Patient is a 67 year old male with a PMH significant for seizure disorder on Keppra, 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 Assessment: 1. UTI vs Pylonephritis - treated 2. Acute Cholecystitis/Rule out cholangitis s/p lap alma rosa 3. History of DVT - resumed anticoag 4. History of Hypertension 5. History of Seizures 6. Elevated LFTs Plan: * Continue IV Ceftriaxone and IV Flagyl for another day per surgery * Ceftriaxone would cover for his UTI as well, currently cultures are still negative. * MRCP showed cholecystitis. but no choledocholithiasis seen. No intra or extrahepatic biliary ductal dilatation. * Laparoscopic cholecystectomy performed on 06/26 2017 * FFP transfused based on surgery recomendation befre surgery * Cultures have showed no growth so far. * Follow General Surgery * resumed Coumadin. IV heparin discontinued * Continue Keppra * Continue all blood pressure medications. * DVT Prophylaxis: ALPS * Diet: full liquid diet * Code: Full Code. Problem List: 1. Cholecystitis Pain Ratin Pain Location: abdominal Pain Goal: Pain 4 or less Pain Plan: Continue current medication Tomorrow's Labs & Rationales: CBC BEP INR LFT
[2017-06-28 09:03] LABS: ABSOLUTE BASOPHIL COUNT 0 /CUMM (0.0-0.2); ABSOLUTE EOSINOPHIL COUNT 0.3 /CUMM (0.0-0.7); ABSOLUTE GRANULOCYTE CT 4.1 /CUMM (1.4-6.5); ABSOLUTE LYMPH COUNT 0.6 /CUMM (1.2-3.4); ABSOLUTE MONOCYTE COUNT 0.5 /CUMM (0.10-0.60); BASOPHIL % 0.2 % (0.0-2.0); EOSINOPHIL % 5.4 % (0-5); GRANULOCYTE % 74.4 % (42.2-75.2); HEMATOCRIT 29.1 % (42-52); MEAN CORPUSCULAR HGB 31.4 PG (27.0-31.0); MEAN CORPUSCULAR HGB CONC 34.2 G/DL (33.0-37.0); MEAN CORPUSCULAR VOLUME 91.9 FL (80.0-94.0); PLATELET COUNT 153 /CUMM (130-400); PT 20.1 SEC (9.4-12.5); RBC DISTRIBUTION WIDTH 13.5 % (11.5-14.5); RED BLOOD CELL CT 3.17 /CUMM (4.70-6.10); WHITE BLOOD CELL COUNT 5.5 /CUMM (4.8-10.8)
--- NOTE | 2017-06-28 12:14 | PN- Att Addend ---
Attending Addendum Attending Brief Note Patient just got up with physical therapy assist of 2, sitting in the chair in no acute distress a little sore at the surgical area patient's diet and advanced Vital signs are stable no fever and white count 5500 with no major changes on physical. Discussed with surgery, will continue IV antibiotic for 1 more day reevaluated in the morning and if stable possibly start disposition plans. Intake & Output 06/28 1600 06/28 0400 06/27 1600 06/27 0400 06/26 1600 06/26 0400 Intake Total 693 416 1238 450 450 550 Output Total 1150 250 446 073 2253 630 Balance -630 440 700 -350 -750 -80 Intake, IV 400 150 900 200 420 150 Intake, Oral 120 540 300 250 30 400 Number 0 Bowel Movements Output, Urine 1150 250 261 796 3688 630 Current Medications Sig/Miladis Start time Last Medication Dose Route Stop Time Status Admin Acetaminophen 650 MG Q6P PRN 06/26 1730 AC PO Amlodipine Besylate 2.5 MG DAILY 06/27 1000 AC 06/28 PO 0907 Atorvastatin Calcium 20 MG 1700 06/27 1700 AC 06/27 PO 1658 Ceftriaxone Sodium 1,000 MG DAILY 06/27 1000 AC 06/28 IV 0908 Dextrose/Sodium 1,000 ML Q20H 06/26 1815 DC 06/27 Chloride IV 1226 Escitalopram Oxalate 10 MG DAILY 06/27 1000 AC 06/28 PO 0907 Famotidine 20 MG DAILY 06/27 1000 AC 06/28 PO 0907 Heparin Sodium 3,916 UNIT ONCE ONE 06/27 1520 DC 06/27 (Porcine) IV 06/27 1521 1537 Heparin Sodium 25,000 UNIT Q24H 06/27 0800 DC 06/27 (Porcine) IV 1522 Sodium Chloride 500 ML Levetiracetam 500 MG BID 06/26 2200 AC 06/28 PO 0907 Levothyroxine Sodium 0.125 MG DAILY AC 06/27 0700 AC 06/28 PO 0607 Lisinopril 5 MG DAILY 06/27 1000 AC 06/28 PO 0907 Magnesium Sulfate 1 GM Q2H 06/27 1745 DC 06/27 Dextrose/Water 100 ML IV 06/27 2144 2054 Melatonin 5 MG QPM 06/26 2200 AC 06/27 PO 2054 Metronidazole 500 MG IQ8 06/27 0000 AC 06/28 N/A 1 UNIT IV 0907 Morphine Sulfate 2 MG Q6-PRN PRN 06/26 1730 AC 06/28 IV 0607 Multivitamins 1 TAB DAILY 06/27 1000 AC 06/28 Therapeutic PO 0907 Nystatin 1 EVERETT BID 06/26 2200 AC 06/28 TOP 0908 Polyethylene Glycol 17 GM DAILY 06/27 1000 AC 06/28 PO 0912 Potassium Chloride 40 MEQ ONCE ONE 06/27 1745 DC 06/27 PO 06/27 1746 1845 Tamsulosin HCl 0.8 MG DAILY 06/27 1000 AC 06/28 PO 0907 Warfarin Sodium 7.5 MG COUMADIN 1700 ONE 06/28 1700 AC PO 06/28 1701 Warfarin Sodium 7.5 MG COUMADIN 1700 ONE 06/27 1730 DC 06/27 PO 06/27 1731 1846 Laboratory Tests 06/28/17 0755: Anion Gap 6, Estimated GFR > 60, BUN/Creatinine Ratio 5.0 L, Total Bilirubin 0.5, Direct Bilirubin 0.3, AST 73 H, ALT 87 H, Alkaline Phosphatase 96, Total Protein 4.8 L, Albumin 2.5 L, PT 20.1 H, INR 1.83 H, CBC w Diff NO MAN DIFF REQ, RBC 3.17 L, MCV 91.9, MCH 31.4 H, MCHC 34.2, RDW 13.5, MPV 7.0 L, Gran % 74.4, Lymphocytes % 11.3 L, Monocytes % 8.7, Eosinophils % 5.4 H, Basophils % 0.2, Absolute Granulocytes 4.1, Absolute Lymphocytes 0.6 L, Absolute Monocytes 0.5, Absolute Eosinophils 0.3, Absolute Basophils 0 06/27/17 2120: APTT Cancelled 06/27/17 1345: APTT 58 H 06/27/17 0741: Anion Gap 8, Estimated GFR > 60, BUN/Creatinine Ratio 7.5, Phosphorus 2.7, Magnesium 1.5 L, Total Bilirubin 0.7, Direct Bilirubin 0.4, AST 110 H, ALT 102 H, Alkaline Phosphatase 106, Total Protein 5.2 L, Albumin 2.6 L, PT 19.1 H, INR 1.74 H, CBC w Diff NO MAN DIFF REQ, RBC 3.43 L, MCV 91.4, MCH 31.5 H, MCHC 34.5, RDW 13.6, MPV 6.9 L, Gran % 84.3 H, Lymphocytes % 8.0 L, Monocytes % 6.1, Eosinophils % 1.6, Basophils % 0, Absolute Granulocytes 6.0, Absolute Lymphocytes 0.6 L, Absolute Monocytes 0.4, Absolute Eosinophils 0.1, Absolute Basophils 0 06/26/17 1100: APTT Cancelled 06/26/17 0750: Anion Gap 9, Estimated GFR > 60, BUN/Creatinine Ratio 7.8, Total Bilirubin 1.0, Direct Bilirubin 0.3, AST 86 H, ALT 92 H, Alkaline Phosphatase 139 H, Total Protein 5.2 L, Albumin 2.6 L, PT 18.3 H, INR 1.67 H, APTT 63 H, CBC w Diff NO MAN DIFF REQ, RBC 3.56 L, MCV 91.2, MCH 31.2 H, MCHC 34.2, RDW 13.4, MPV 6.9 L, Gran % 73.2, Lymphocytes % 14.6 L, Monocytes % 6.5, Eosinophils % 5.4 H, Basophils % 0.3, Absolute Granulocytes 3.5, Absolute Lymphocytes 0.7 L, Absolute Monocytes 0.3, Absolute Eosinophils 0.3, Absolute Basophils 0 06/26/17 0415: APTT 106 *H 06/25/17 1840: APTT 58 H Vital Signs Date Time Temp Pulse Resp B/P B/P Pulse O2 O2 Flow FiO2 Mean Ox Delivery Rate 06/28 906 120/70 06/28 09 120/70 06/28 09 120/70 06/28 0628 98.6 81 20 120/70 90 Room Air 06/27 2138 98.7 86 20 109/72 88 Room Air 06/27 1600 Nasal 2.0L Cannula 06/27 1432 130/80 06/27 1427 97.9 79 18 92/69 95 Continue monitoring the INR and Coumadin given accordingly.
--- NOTE | 2017-06-28 13:54 | Patient Discharge Instructions ---
See Addendum Discharge Instructions General Discharge Information No bath, but you may shower: Yes Other wound care: Clean, dry dressing change daily Special Instructions: Keep incision clean and dry. May shower but no bathiing or soaking Diet Continue normal diet: Yes Activity Activity Self Limited: Yes Pounds, do NOT lift more than: 10 Acute Coronary Syndrome Inclusion Criteria At DC or during hospital stay patient has or had the following: ACS DIAGNOSIS No Discharge Core Measures Meds if any: Prescribed or Continued at Discharge Meds if any: NOT Prescribed or Continued at Discharge Congestive Heart Failure Inclusion Criteria At DC or during hospital stay patient has or had the following: CHF DIAGNOSIS No Discharge Core Measures Meds if any: Prescribed or Continued at Discharge Meds if any: NOT Prescribed or Continued at Discharge Cerebrovascular accident Inclusion Criteria At DC or during hospital stay patient has or had the following: CVA/TIA Diagnosis No Discharge Core Measures Meds if any: Prescribed or Continued at Discharge Meds if any: NOT Prescribed or Continued at Discharge Venous thromboembolism Inclusion Criteria VTE Diagnosis No VTE Type NONE VTE Confirmed by (Test) NONE Discharge Core Measures - Per Current guidelines, there needs to be overlap - treatment for the first 5 days of Warfarin therapy. - If discharged on Warfarin prior to 5 days of - overlap therapy, the patient will need to be - assessed for post discharge needs including - *Post discharge parental anticoagulation - *Warfarin and/or parental anticoagulation education - *Follow up date to check INR post discharge At least 5 days overlap therapy as Inpatient No Meds if any: Prescribed or Continued at Discharge Note: Overlap Therapy is Warfarin and Anticoagulant Meds if any: NOT Prescribed or Continued at Discharge
[2017-06-28 14:03] VITALS: BP 104/69
--- NOTE | 2017-06-28 19:19 | PN- General Surgery ---
Surgical Brief Attending Note Brief Attending Note: POD 2 tolerating diet vital signs stable afebrile, still has some abdominal discomfort unable to consistently localize it sometimes left sometimes right sometimes upper sometimes lower he does seem tender at the Band-Aids appropriately so little distended probably hasn't moved his bowels in a while consider Dulcolax suppository his LFTs continue to trend downwards
[2017-06-28 21:29] VITALS: BP 124/78
[2017-06-29 06:26] VITALS: BP 122/76
--- NOTE | 2017-06-29 08:16 | PN- Housestaff ---
Subjective Follow-up For: Cholecystitis UTI Subjective: Patient visited today, was lying in bed comfortably in no acute distress, was alert and oriented. is POD 3 of laparoscopic cholecystectomy. No fever or chills, no shortness of breathing, no chest pain, no other events. tolerated heart healthy diet. Coumadin restarted. Planned to discharge today, patient refused STR. Review of Systems Constitutional: Reports: see HPI. Objective Last 24 Hrs of Vital Signs/I&O Vital Signs Date Time Temp Pulse Resp B/P B/P Pulse O2 O2 Flow FiO2 Mean Ox Delivery Rate 06/29 1158 99.3 79 20 122/76 / 0840 122/76 / 0840 122/76 / 0839 122/76 / 0626 99.3 79 20 122/76 90 Room Air 06/28 2129 98.5 82 20 124/78 90 08 1555 Room Air 06/28 1403 98.1 84 18 104/69 92 Room Air Intake & Output 06/29 1600 06/29 0800 06/29 0000 Intake Total 580 830 Output Total 1025 800 Balance -445 30 Intake, IV 100 130 Intake, Oral 480 700 Number 2 Bowel Movements Output, Urine 1025 800 Patient 226 lb Weight Physical Exam General Appearance: Alert, Oriented X3, Cooperative, No Acute Distress Skin Temp/Moisture Exam: Warm/Dry Sepsis Skin Exam (color): Normal for Ethnicity HEENT: Atraumatic, EOMI, Mucous Membr. moist/pink Cardiovascular: Normal S1, Normal S2 Lungs: Clear to Auscultation Abdomen: minimal tenderness Neurological: Normal Speech, grossly no change compared to yesterday left hemiparesis Extremities: No Edema Current Medications: Current Medications Sig/Miladis Start time Last Medication Dose Route Stop Time Status Admin Acetaminophen 650 MG Q6P PRN 06/26 1730 AC PO Amlodipine Besylate 2.5 MG DAILY 06/27 1000 AC 06/29 PO 0840 Atorvastatin Calcium 20 MG 1700 06/27 1700 AC 06/28 PO 1600 Bisacodyl 10 MG DAILY NEEDED PRN 06/29 0800 AC SD Bisacodyl 10 MG DAILY PRN 06/28 2045 AC 06/29 SD 1108 Bisacodyl 10 MG ONCE ONE 06/29 1999 DC SD 06/28 2000 Ceftriaxone Sodium 1,000 MG DAILY 06/27 1000 AC 06/29 IV 1108 Escitalopram Oxalate 10 MG DAILY 06/27 1000 AC 06/29 PO 0840 Famotidine 20 MG DAILY 06/27 1000 AC 06/29 PO 0840 Levetiracetam 500 MG BID 06/26 2200 AC 06/29 PO 0840 Levothyroxine Sodium 0.125 MG DAILY AC 06/27 0700 AC 06/29 PO 0600 Lisinopril 5 MG DAILY 06/27 1000 AC 06/29 PO 0840 Melatonin 5 MG QPM 06/26 2200 AC 06/28 PO 2014 Metronidazole 500 MG IQ8 06/27 0000 AC 06/29 N/A 1 UNIT IV 0838 Morphine Sulfate 2 MG Q6-PRN PRN 06/26 1730 AC 06/29 IV 0600 Multivitamins 1 TAB DAILY 06/27 1000 AC 06/29 Therapeutic PO 0842 Nystatin 1 EVERETT BID 06/26 2200 AC 06/29 TOP 0841 Patient Medication 1 ED ONE ONE 06/28 1630 DC 06/28 Teaching ED 06/28 1631 1645 Polyethylene Glycol 17 GM DAILY 06/29 0800 AC PO Polyethylene Glycol 17 GM DAILY 06/27 1000 AC 06/29 PO 0839 Tamsulosin HCl 0.8 MG DAILY 06/27 1000 AC 06/29 PO 0839 Warfarin Sodium 7.5 MG COUMADIN 1700 06/29 1700 AC PO 06/29 2359 Warfarin Sodium 7.5 MG COUMADIN 1700 ONE 06/28 1700 DC 06/28 PO 06/28 1701 1600 Last 24 Hrs of Lab/Santosh Results Last 24 Hrs of Labs/Mics: Laboratory Tests 06/29/17 0755: Anion Gap 7, Estimated GFR > 60, BUN/Creatinine Ratio 7.5, PT 23.1 H, INR 2.10 H, CBC w Diff NO MAN DIFF REQ, RBC 3.35 L, MCV 92.1, MCH 31.4 H, MCHC 34.1, RDW 14.0, MPV 6.9 L, Gran % 69.3, Lymphocytes % 14.6 L, Monocytes % 8.5, Eosinophils % 7.2 H, Basophils % 0.4, Absolute Granulocytes 3.6, Absolute Lymphocytes 0.8 L, Absolute Monocytes 0.4, Absolute Eosinophils 0.4, Absolute Basophils 0 Assessment/Plan Assessment: Patient is a 67 year old male with a PMH significant for seizure disorder on Keppra, 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 Assessment: 1. UTI vs Pylonephritis - treated 2. Acute Cholecystitis/Rule out cholangitis s/p lap alma rosa 3. History of DVT - resumed anticoag 4. History of Hypertension 5. History of Seizures 6. Elevated LFTs Plan: * stable to be discharged today * Continue IV Ceftriaxone and IV Flagyl completed today * Ceftriaxone would cover for his UTI as well, currently cultures are still negative. * MRCP showed cholecystitis. but no choledocholithiasis seen. No intra or extrahepatic biliary ductal dilatation. * Laparoscopic cholecystectomy performed on 06/26 2017 * FFP transfused based on surgery recomendation befre surgery * Cultures have showed no growth so far. * Follow General Surgery * resumed Coumadin. IV heparin discontinued * Continue Keppra * Continue all blood pressure medications. * DVT Prophylaxis: ALPS * Diet: full liquid diet * Code: Full Code. Problem List: 1. Cholecystitis Pain Ratin Pain Location: none Pain Goal: Pain 4 or less Pain Plan: continue current plan stable to be discharged Tomorrow's Labs & Rationales: none
[2017-06-29 08:32] LABS: PT 23.1 SEC (9.4-12.5)
[2017-06-29 09:02] LABS: ABSOLUTE BASOPHIL COUNT 0 /CUMM (0.0-0.2); ABSOLUTE EOSINOPHIL COUNT 0.4 /CUMM (0.0-0.7); ABSOLUTE GRANULOCYTE CT 3.6 /CUMM (1.4-6.5); ABSOLUTE LYMPH COUNT 0.8 /CUMM (1.2-3.4); ABSOLUTE MONOCYTE COUNT 0.4 /CUMM (0.10-0.60); BASOPHIL % 0.4 % (0.0-2.0); EOSINOPHIL % 7.2 % (0-5); GRANULOCYTE % 69.3 % (42.2-75.2); HEMATOCRIT 30.9 % (42-52); MEAN CORPUSCULAR HGB 31.4 PG (27.0-31.0); MEAN CORPUSCULAR HGB CONC 34.1 G/DL (33.0-37.0); MEAN CORPUSCULAR VOLUME 92.1 FL (80.0-94.0); MEAN PLATELET VOLUME 6.9 FL (7.4-10.4); PLATELET COUNT 170 /CUMM (130-400); RED BLOOD CELL CT 3.35 /CUMM (4.70-6.10); WHITE BLOOD CELL COUNT 5.2 /CUMM (4.8-10.8)
--- NOTE | 2017-06-29 10:18 | Operative Report ---
Operative/Inv Procedure Report Surgery Date: 06/26/17 Name of Procedure: Laparoscopic cholecystectomy Pre-Operative Diagnosis: Acute cholecystitis choledocholithiasis and cholangitis Post-Operative Diagnosis: Same, fibrosing Estimated Blood Loss: scant Surgeon/Chemical Reclamation Equipment Operator: MD Moses Wade Anesthesia: general endotracheal tube Operative/Procedure Note Note: Patient was positioned supine. After successful induction of general anesthesia, the patient's abdomen was clipped, prepped and draped in the usual sterile fashion. Local anesthetic was injected at the top of the umbilicus and then a curved horizontal incision little over a centimeter was made there with a 15 blade and then deepened to the midline fascia which was incised vertically a little over a centimeter. Both sides were secured with 0 Vicryl stay sutures and then the thin peritoneal layer was entered, 10 mm Dorantes trocar inserted obliquely to the right, and the gas was turned on to 15 mm. After insufflation and repositioning to reverse Trendelenburg, 3 more dissecting 5 mm trochars were placed in the right subcostal area, first lateral, then mid-subcostal, then subxiphoid. The gallbladder was distended and edematous thick-walled and fibrotic we first it to decompress it with a large-bore needle then the fundus was grasped from the lateral port and retracted up over the edge of the liver and then we dissected out the area of the triangle of Calot while retracting the infundibulum caudally / laterally. First the cystic duct was identified, it was short, isolated at the neck, clipped 3 times, divided after the second clip and then in similar fashion the cystic artery was identified medially, dissected and divided. Then the gallbladder was from the liver bed using cautery then lowered into an Endobag and removed through the umbilical incision. The instruments and then the trochars were removed letting the gas escape. The fascial incision was closed with a figure 8 Vicryl then all 4 skin incisions were closed with interrupted subcuticular 4-0 Monocryl, followed by Mastisol Steri-Strips and Bandaids. Estimated blood loss was minimal, lap and sponge counts were correct, wound expectancy was clean-contaminated, IV fluids crystalloid, complications none, patient tolerated the procedure well and was returned to the recovery room in satisfactory condition.
--- NOTE | 2017-06-29 11:20 | PN- Att Addend ---
Attending Addendum Attending Brief Note Except for some constipation patient doing well, tolerated his diet well vital signs are stable a fever no changes on physical. His wounds looks clean, as soon as he has a bowel movement patient will be going home with home [facility] PT and see the CMR and W 10. Intake & Output 06/29 1600 06/29 0400 06/28 1600 06/28 0400 06/27 1600 06/27 0400 Intake Total 580 830 953 137 7223 450 Output Total 7106 625 9283 250 500 800 Balance -445 30 -430 440 700 -350 Intake, IV 100 130 400 150 900 200 Intake, Oral 480 700 320 540 300 250 Number 0 Bowel Movements Output, Urine 0688 237 4849 250 500 800 Patient 226 lb Weight Current Medications Sig/Miladis Start time Last Medication Dose Route Stop Time Status Admin Acetaminophen 650 MG Q6P PRN 06/26 1730 AC PO Amlodipine Besylate 2.5 MG DAILY 06/27 1000 AC 06/29 PO 0840 Atorvastatin Calcium 20 MG 1700 06/27 1700 AC 06/28 PO 1600 Bisacodyl 10 MG DAILY NEEDED PRN 06/29 0800 AC SC Bisacodyl 10 MG DAILY PRN 06/28 2045 AC 06/29 SC 1108 Bisacodyl 10 MG ONCE ONE 06/28 2000 DC SC 06/28 2000 Ceftriaxone Sodium 1,000 MG DAILY 06/27 1000 AC 06/29 IV 1108 Escitalopram Oxalate 10 MG DAILY 06/27 1000 AC 06/29 PO 0840 Famotidine 20 MG DAILY 06/27 1000 AC 06/29 PO 0840 Levetiracetam 500 MG BID 06/26 2200 AC 06/29 PO 0840 Levothyroxine Sodium 0.125 MG DAILY AC 06/27 0700 AC 06/29 PO 0600 Lisinopril 5 MG DAILY 06/27 1000 AC 06/29 PO 0840 Melatonin 5 MG QPM 06/26 2200 AC 06/28 PO 2014 Metronidazole 500 MG IQ8 06/27 0000 AC 06/29 N/A 1 UNIT IV 0838 Morphine Sulfate 2 MG Q6-PRN PRN 06/26 1730 AC 06/29 IV 0600 Multivitamins 1 TAB DAILY 06/27 1000 AC 06/29 Therapeutic PO 0842 Nystatin 1 EVERETT BID 06/26 2200 AC 06/29 TOP 0841 Patient Medication 1 ED ONE ONE 06/28 1630 DC 06/28 Teaching ED 06/28 1631 1645 Polyethylene Glycol 17 GM DAILY 06/29 0800 AC 06/29 PO 0843 Polyethylene Glycol 17 GM DAILY 06/27 1000 AC 06/29 PO 0839 Tamsulosin HCl 0.8 MG DAILY 06/27 1000 AC 06/29 PO 0839 Warfarin Sodium 7.5 MG COUMADIN 1700 06/29 1700 AC PO 06/29 2359 Warfarin Sodium 7.5 MG COUMADIN 1700 ONE 06/28 1700 DC 06/28 PO 06/28 1701 1600 Laboratory Tests 06/29/17 0755: Anion Gap 7, Estimated GFR > 60, BUN/Creatinine Ratio 7.5, PT 23.1 H, INR 2.10 H, CBC w Diff NO MAN DIFF REQ, RBC 3.35 L, MCV 92.1, MCH 31.4 H, MCHC 34.1, RDW 14.0, MPV 6.9 L, Gran % 69.3, Lymphocytes % 14.6 L, Monocytes % 8.5, Eosinophils % 7.2 H, Basophils % 0.4, Absolute Granulocytes 3.6, Absolute Lymphocytes 0.8 L, Absolute Monocytes 0.4, Absolute Eosinophils 0.4, Absolute Basophils 0 06/28/17 0755: Anion Gap 6, Estimated GFR > 60, BUN/Creatinine Ratio 5.0 L, Total Bilirubin 0.5, Direct Bilirubin 0.3, AST 73 H, ALT 87 H, Alkaline Phosphatase 96, Total Protein 4.8 L, Albumin 2.5 L, PT 20.1 H, INR 1.83 H, CBC w Diff NO MAN DIFF REQ, RBC 3.17 L, MCV 91.9, MCH 31.4 H, MCHC 34.2, RDW 13.5, MPV 7.0 L, Gran % 74.4, Lymphocytes % 11.3 L, Monocytes % 8.7, Eosinophils % 5.4 H, Basophils % 0.2, Absolute Granulocytes 4.1, Absolute Lymphocytes 0.6 L, Absolute Monocytes 0.5, Absolute Eosinophils 0.3, Absolute Basophils 0 06/27/17 2120: APTT Cancelled 06/27/17 1345: APTT 58 H 06/27/17 0741: Anion Gap 8, Estimated GFR > 60, BUN/Creatinine Ratio 7.5, Phosphorus 2.7, Magnesium 1.5 L, Total Bilirubin 0.7, Direct Bilirubin 0.4, AST 110 H, ALT 102 H, Alkaline Phosphatase 106, Total Protein 5.2 L, Albumin 2.6 L, PT 19.1 H, INR 1.74 H, CBC w Diff NO MAN DIFF REQ, RBC 3.43 L, MCV 91.4, MCH 31.5 H, MCHC 34.5, RDW 13.6, MPV 6.9 L, Gran % 84.3 H, Lymphocytes % 8.0 L, Monocytes % 6.1, Eosinophils % 1.6, Basophils % 0, Absolute Granulocytes 6.0, Absolute Lymphocytes 0.6 L, Absolute Monocytes 0.4, Absolute Eosinophils 0.1, Absolute Basophils 0 Vital Signs Date Time Temp Pulse Resp B/P B/P Pulse O2 O2 Flow FiO2 Mean Ox Delivery Rate 06/29 0840 122/76 06/29 0840 122/76 06/29 0839 122/06/29 0626 99.3 79 20 122/76 90 Room Air 06/28 2129 98.5 82 20 124/78 90 06/28 1555 Room Air 06/28 1403 98.1 84 18 104/69 92 Room Air
[2017-06-29 11:58] VITALS: BP 122/76
--- NOTE | 2017-06-29 18:08 | PN- General Surgery ---
Surgical Brief Attending Note Brief Attending Note: Patient seen and examined this morning he still notes some abdominal discomfort post says it's better than yesterday he's tolerating diet still hasn't had a bowel movement this morning vital signs stable afebrile, incisions clean dry and intact no hematomas I reviewed the labs no leukocytosis, impression is stable heart monitor him for changes in his abdominal exam if so I would recheck LFTs otherwise awaiting return of bowel function.
== END 2017-06-29 15:21 | disposition home health service (06) | DRG 418 ==
LOC: ERH 12:12 → ERHI 22:42 → 2NA 22:42 → ENRESERV 06-22 00:51 → 2NA 06-22 01:44 → ENPENDDIS 06-29 11:09 → 2NA 06-29 15:21
PROVIDERS: Internal Medicine; Orthopaedic Surgery; Physician Assistant; Radiology Vascular & Interventional Radiology; Student in an Organized Health Care Education/Training Program
PROC: 0FT44ZZ Resection of Gallbladder, Percutaneous Endoscopic Approach (ICD-10-PCS; principal; 2017-06-26)
PROC: 30233K1 Transfusion of Nonautologous Frozen Plasma into Peripheral Vein, Percutaneous Approach (ICD-10-PCS; 2017-06-26)
DX: K80.42 Calculus of bile duct with acute cholecystitis without obstruction (principal); I69.354 Hemiplegia and hemiparesis following cerebral infarction affecting left non-dominant side; N39.0 Urinary tract infection, site not specified; G40.909 Epilepsy, unspecified, not intractable, without status epilepticus; Z79.01 Long term (current) use of anticoagulants; E78.5 Hyperlipidemia, unspecified; I73.9 Peripheral vascular disease, unspecified; E03.9 Hypothyroidism, unspecified; F32.9 Major depressive disorder, single episode, unspecified; K21.9 Gastro-esophageal reflux disease without esophagitis; Z88.0 Allergy status to penicillin; Z88.8 Allergy status to other drugs, medicaments and biological substances; Z91.041 Radiographic dye allergy status; I44.0 Atrioventricular block, first degree; R79.89 Other specified abnormal findings of blood chemistry
CPT/HCPCS: 2NASP; 74181; ERO; 36415; 36592; 71045; 74176; 81001; 82436; 87040; 87086; 87804; 87804-59; 88304; 88305; 93005; 93010; 96361; 96365; 96374; 97110-GO; 97116-GO; 97161-GP; 97530-GO; 99291; C9399; J0131; J0696; J1644; J7042; P9017

== ENCOUNTER 2017-06-30 19:12 | Inpatient (IN) | payer OTHER, MEDICARE ==
[~2017-06-30] VITALS: Ht 185.4 cm; Wt 97.5 kg
[~2017-06-30 19:12] MED LIST changes: +MELATONIN5 M7 PO
--- NOTE | 2017-06-30 19:37 | ED MVC/FALL/TRAUMA COMPLAINT ---
History of Present Illness General Chief Complaint: Fall Stated Complaint: S/P FALL, LEFT HIP PAIN Source: patient Exam Limitations: poor historian Vital Signs & Intake/Output Vital Signs & Intake/Output Vital Signs Date Time Temp Pulse Resp B/P B/P Pulse O2 O2 Flow FiO2 Mean Ox Delivery Rate 07/01 1435 97.9 60 20 116/80 93 Room Air 07/01 0952 80 110/80 07/01 0951 80 110/80 07/01 0655 97.9 68 20 144/92 93 07/01 0134 97.9 63 20 150/98 93 07/01 0017 97.7 86 20 143/76 98 Room Air 07/01 0016 Room Air 06/30 2256 84 20 144/70 97 Room Air 06/30 1918 97.3 70 18 132/81 96 Room Air ED Intake and Output 07/01 0000 06/30 1200 Intake Total 120 Output Total Balance 120 Intake, Oral 120 Patient 213 lb Weight Weight Estimated Measurement Method Allergies Coded Allergies: Iodinated Contrast- Oral and IV Dye (UNKNOWN 11/30/16) Penicillins (UNKNOWN 11/30/16) bacitracin (PER PT EYE OINTMENT -DOES NOT REMEMBER REACTION 05/05/17) Reconcile Medications Amlodipine (Norvasc) 2.5 MG TABLET 1 TAB PO DAILY HEART (Reported) Escitalopram Oxalate (Lexapro) 20 MG TABLET 1 TAB PO DAILY DEPRESSION ( Reported) Famotidine 20 MG TABLET 1 TAB PO DAILY GI (Reported) Levetiracetam (Keppra) 500 MG TABLET 1 TAB PO BID SEIZURES (Reported) Levothyroxine Sodium 125 MCG TABLET 1 TAB PO DAILY AC THYROID (Reported) Linaclotide (Linzess) 290 MCG CAPSULE 1 CAP PO DAILY BOWEL (Reported) Lisinopril (Prinivil) 5 MG TABLET 1 TAB PO DAILY BP (Reported) Melatonin 5 MG TABLET 1 TAB PO QPM SLEEP (Reported) Multiple Vitamin (Multivitamins) 1 EACH TABLET 1 TAB PO DAILY SUPPLEMENT ( Reported) Simvastatin (Zocor*) 20 MG TABLET 1 TAB PO QPM CHOLESTEROL (Reported) Tamsulosin HCl (Flomax) 0.4 MG CAP.ER.24H 2 CAP PO DAILY PROSTATE (Reported) Warfarin Sodium (Coumadin) 7.5 MG TABLET 1 TAB PO 1700 BLOOD THINNER ( Reported) Triage Note: RECEIVED 67 YO MALE BIBA FROM HOME S/P FALL GETTING OUT OF RECLINER. PT REPORTS LEFT HIP PAIN. PT DENIES LIGHTHEADEDNESS/LIGHTHEADEDNESS PRIOR TO FALL. PT D/C FROM [place] YESTERDAY S/P CHOLECYSECTOMY. PT DENIES LOC. Triage Nurses Notes Reviewed? yes Onset: Just prior to arrival Duration: minute(s): Timing: single episode today Injuries/Fall Location: upper extremity (LEFT SHOULDER), chest (LEFT), lower extremity (LEFT HIP/FEMUR/KNEE) Method of Injury: fall Loss of Consciousness: no loss of consciousness HPI: Patient presents for evaluation of injury sustained status post fall just prior to arrival. Patient states he landed on his left side after what appears to be a simple mechanical fall. Past History Travel History Traveled to [facility] past 21 day No Medical History Any Pertinent Medical History? 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 . MOTHER (DM, Breast Ca, Stroke). . Hx Contributory? No Review of Systems Review of Systems Constitutional: Reports: no symptoms. Eyes: Reports: no symptoms. Ears, Nose, Throat, Mouth: Reports: no symptoms. Respiratory: Reports: no symptoms. Cardiovascular: Reports: no symptoms. Gastrointestinal/Abdominal: Reports: no symptoms. Genitourinary: Reports: no symptoms. Musculoskeletal: Reports: see HPI. Skin: Reports: no symptoms. Neurological/Psychological: Reports: no symptoms. All Other Systems: Reviewed and Negative Physical Exam Physical Exam General Appearance: SEE BELOW Comments: Gen.: Well-nourished, well-developed, no acute respiratory distress. Head: Normocephalic, atraumatic, nontender. Eyes: Normal inspection bilaterally, chon, EOMI Ears: Normal inspection bilaterally Nose: Normal inspection Throat/mouth : Moist mucosa Neck: Supple, full range of motion, no goiter, nontender Heart: Regular rate and rhythm, no murmurs rubs or gallops Lungs: Clear to auscultation bilaterally with normal air entry Chest: Mild tenderness over the left lateral ribs Back: Normal range of motion, nontender Abdomen: Soft, mild diffuse tenderness status post cholecystectomy, surgical wounds closed with Steri-Strips, nondistended, normal bowel sounds Pelvis: Stable and nontender Extremities: Left lower extremity: Tenderness with internal/external rotation of the left hip, tenderness over the left femur diffusely, tenderness over the left knee diffusely, lower extremity edema with chronic skin changes, the left lower extremity is neurovascularly intact Neurologic: Cranial nerves grossly intact, speech is clear Skin: warm and dry and without ecchymoses or soft tissue swelling or erythema Psychiatric: Calm, cooperative, no apparent delusions or hallucinations Core Measures ACS in differential dx? No CVA/TIA Diagnosis No Sepsis Present: No Sepsis Focused Exam Completed? No Progress Differential Diagnosis: FRACTURE, DISLOCATION, SPRAIN, CONTUSION Plan of Care: Orders Procedure Date/time Status PROTHROMBIN TIME 07/02 06 Active CBC WITHOUT DIFFERENTIAL 07/02 06 Active BASIC ELECTROLYTES PLUS BUN&CR 07/02 06 Active Heart Healthy Diet 07/01 B Active PROTHROMBIN TIME 07/01 0659 Complete HEPATIC FUNCTION PANEL 07/01 06 Complete CBC WITHOUT DIFFERENTIAL 07/01 0600 Complete BASIC ELECTROLYTES PLUS BUN&CR 07/01 0600 Complete Weight 07/01 0014 Complete Teach/Educate 07/01 0014 Active Pain Treatment and Response 07/01 0014 Active Nutritional Intake, Monitor 07/01 0014 Active Isolation 07/01 0014 Active Patient Care Conference 07/01 0014 Active Activity/Ambulation 07/01 0014 Active Precautions 07/01 0008 Active Therapeutic Activities 07/01 UNK Complete PT EVAL LOW COMPLEX 20 MIN 07/01 UNK Complete PT Evaluate & Treat 06/30 2349 Active Saline Lock 06/30 2349 Active Pathway - chart 06/30 2349 Active House Staff 06/30 2349 Active Patient Data 06/30 2342 Active Admit to inpatient 06/30 2338 Active Misc Message 06/30 2332 Active ED Holding Orders 06/30 2332 Active Vital Signs 06/30 2332 Active Code Status 06/30 2332 Active CREATINE PHOSPHOKINASE 06/30 2258 Complete CBC WITHOUT DIFFERENTIAL 06/30 225 Complete BASIC METABOLIC PANEL 06/30 2258 Complete EKG 06/30 2257 Active Intake & Output 06/30 2206 Active VTE Mechanical Prophylaxis 06/30 UNK Active Current Medications Sig/Miladis Start time Last Medication Dose Stop Time Status Admin Melatonin 5 MG QPM 07/01 2199 AC (Melatonin) Atorvastatin Calcium 10 MG 1700 07/01 1700 AC 07/01 (Lipitor) 174 Warfarin Sodium 7.5 MG 1700 07/01 1700 AC 07/01 (Coumadin) 174 Amlodipine Besylate 2.5 MG DAILY 07/01 1000 AC 07/01 (Norvasc) 0952 Escitalopram Oxalate 20 MG DAILY 07/01 1000 AC 07/01 (Lexapro) 0952 Famotidine 20 MG DAILY 07/01 1000 AC 07/01 (Pepcid) 0951 Levetiracetam 500 MG BID 07/01 1000 AC 07/01 (Keppra) 0952 Lisinopril 5 MG DAILY 07/01 1000 AC 07/01 (Prinivil) 0951 Multivitamins 1 TAB DAILY 07/01 1000 AC 07/01 Therapeutic 0951 (Theragran-M Vitamins Tabs) Tamsulosin HCl 0.8 MG DAILY 07/01 1000 AC 07/01 (Flomax) 0952 Acetaminophen 1,000 MG Q6P PRN 07/01 0730 AC (Ofirmev) N/A 1 UNIT (No Carrier) Oxycodone/ 1 TAB Q6P PRN 07/01 0730 AC 07/01 Acetaminophen 0951 (Percocet) Levothyroxine Sodium 0.125 MG DAILY AC 07/01 0700 AC 07/01 (Synthroid) 0952 Ketorolac 15 MG Q6P PRN 07/01 0500 AC 07/01 Tromethamine 1743 (Toradol) Acetaminophen 650 MG Q4P PRN 07/01 0430 AC (Tylenol) Morphine Sulfate 2 MG Q6P PRN 07/01 0430 AC (MORPHINE SULFATE) Laboratory Tests 07/01/17 0845: PT 25.2 H, INR 2.29 H 07/01/17 0718: Anion Gap 7, Estimated GFR > 60, BUN/Creatinine Ratio 10.0, Total Bilirubin 0.7, Direct Bilirubin 0.3, AST 58, ALT 75 H, Alkaline Phosphatase 180 H, Total Protein 5.3 L, Albumin 2.8 L, CBC w Diff NO MAN DIFF REQ, RBC 3.42 L, MCV 92.6, MCH 31.3 H, MCHC 33.8, RDW 14.2, MPV 6.9 L, Gran % 61.5, Lymphocytes % 19.6 L, Monocytes % 8.3, Eosinophils % 9.9 H, Basophils % 0.7, Absolute Granulocytes 3.1, Absolute Lymphocytes 1.0 L, Absolute Monocytes 0.4, Absolute Eosinophils 0.5, Absolute Basophils 0 06/30/17 2322: Anion Gap 6, Estimated GFR > 60, BUN/Creatinine Ratio 10.0, Glucose 100 H, Calcium 8.5, Creatine Kinase 57, CBC w Diff NO MAN DIFF REQ, RBC 3.37 L, MCV 92.3, MCH 30.9, MCHC 33.5, RDW 14.3, MPV 6.6 L, Gran % 72.1, Lymphocytes % 14.1 L, Monocytes % 8.1, Eosinophils % 5.4 H, Basophils % 0.3, Absolute Granulocytes 4.1, Absolute Lymphocytes 0.8 L, Absolute Monocytes 0.5, Absolute Eosinophils 0.3, Absolute Basophils 0 Diagnostic Imaging: Discussed w/RAD: Radiology Read. Radiology Impression: PATIENT: DANIS ELDRIDGE PRESENT AGE: 67 PATIENT ACCOUNT NO: [id number] : 50 LOCATION: [facility] ORDERING PHYSICIAN: Thomas Huitron MD SERVICE DATE: 06/30/17 EXAM TYPE : RAD - XRY-FEMUR, LEFT 2 VIEWS; XRY-HIP 2-3 VIEWS, LEFT EXAMINATION: XR HIP, LEFT X-RAY LEFT FEMUR CLINICAL INFORMATION: Fall, pain COMPARISON: 03/04/2014 x- ray TECHNIQUE: Two views of the left hip. AP and lateral views of the left femur FINDINGS: There are postsurgical changes of internal fixation of the left femur with intramedullary jaspreet. Heterotopic ossification surrounding the left femoral neck and intertrochanteric region noted, chronic finding. The femoral head is aligned within the acetabulum without evidence of dislocation. There is no acute left femoral fracture. The symphysis pubis is intact. The soft tissue is unremarkable. IMPRESSION: No acute left femoral fracture. No left hip dislocation. DICTATED BY: Gen Hall MD DATE/TIME DICTATED:06/30/172043 PATIENT COORDINATOR:SHIRA DATE/TIME TRANSCRIBED:06/30/172043 CONFIDENTIAL, DO NOT COPY WITHOUT APPROPRIATE AUTHORIZATION. <Electronically signed in Other Vendor System> SIGNED BY: Tristan Hall MD 06/30/172054, PATIENT: DANIS ELDRIDGE PRESENT AGE: 67 PATIENT ACCOUNT NO: [id number] : 50 LOCATION: [facility] ORDERING PHYSICIAN: Thomas Huitron MD SERVICE DATE: 06/30/17 EXAM TYPE: RAD - XRY-SHOULDER COMPLETE-LEFT EXAMINATION: 3 views of the left shoulder CLINICAL INFORMATION: Status post fall with pain and tenderness COMPARISON: None FINDINGS: No fractures. The bony articulations are maintained. The left humeral head is high riding suggesting chronic rotator cuff injury. Imaged left lung is clear. There is cervical spondylosis. IMPRESSION: No acute osseous findings. Evidence of chronic left- sided rotator cuff injury. DICTATED BY: Thomas Calix MD DATE/TIME DICTATED:2045 PATIENT COORDINATOR:SHIRA DATE/TIME TRANSCRIBED:06/30/172045 CONFIDENTIAL, DO NOT COPY WITHOUT APPROPRIATE AUTHORIZATION. <Electronically signed in Other Vendor System> SIGNED BY: Thomas Calix MD 06/30/172052, PATIENT: DANIS ELDRIDGE PRESENT AGE: 67 PATIENT ACCOUNT NO: [id number] : 50 LOCATION: [facility] ORDERING PHYSICIAN: Thomas Huitron MD SERVICE DATE: 06/30/17 EXAM TYPE: RAD - XRY-RIBS UNILATERAL- LEFT EXAMINATION: XR RIBS, LEFT CLINICAL INFORMATION: Fall, pain COMPARISON: 04/2017 chest x-ray TECHNIQUE: 2 views of the left ribs were obtained. FINDINGS: The lung volumes are low. No consolidation, pneumothorax, or pleural effusion. The cardiomediastinal silhouette is stable. No acute rib fractures. Degenerative changes of the left shoulder are present. Partial visualization of IVC filter in the abdomen. IMPRESSION: No acute rib fractures. No acute pulmonary findings. Stable cardiomediastinal silhouette. DICTATED BY: Tristan Hall MD DATE/TIME DICTATED:06/30/172036 PATIENT COORDINATOR:SHIRA DATE/TIME TRANSCRIBED:2036 CONFIDENTIAL, DO NOT COPY WITHOUT APPROPRIATE AUTHORIZATION. < Electronically signed in Other Vendor System> SIGNED BY: Rafael REEVESTristan 06/30/17 2047 Comments: 06/30/2017 9:45:59 PM I have updated Danis on his x-ray results. Although he was medicated with Tylenol attempts to ambulate were unsuccessful secondary to left chest and rib pain. Tramadol ordered. Plan repeat attempt to ambulate, disposition pending. 06/30/2017 10:52:57 PM patient's nurse attempted to ambulate after narcotic pain relievers. Patient states he is still too weak to attempt ambulation or to return home. Plan evaluation by PET in the morning. d/w case management. pt likely to require short term rehab. tba. pt in am. Departure Departure Disposition: HOME OR SELF CARE Condition: Stable Clinical Impression Primary Impression: Sprain of left shoulder Qualifiers: Encounter type: initial encounter Shoulder sprain type: unspecified sprain Qualified Code: S43.402A - Unspecified sprain of left shoulder joint, initial encounter Secondary Impressions: Contusion of pelvis Qualifiers: Encounter type: initial encounter Qualified Code: S30.0XXA - Contusion of lower back and pelvis, initial encounter Fall Qualifiers: Encounter type: initial encounter Qualified Code: W19.XXXA - Unspecified fall, initial encounter Strain of left hip and thigh Qualifiers: Encounter type: initial encounter Qualified Codes: S76.012A - Strain of muscle, fascia and tendon of left hip, initial encounter; S76.912A - Strain of unspecified muscles, fascia and tendons at thigh level, left thigh, initial encounter Referrals: Vasile Frausto MD (PCP/Family) Additional Instructions: Tylenol as needed for pain. Follow-up with your primary care physician for reevaluation if not improving in the next week to 10 days. Return if any concerns or sudden worsening. Please note that there might be incidental findings in your evaluation that are unrelated to the current emergency department visit. Please notify your primary care doctor about this emergency department visit in order to obtain and review all of the testing performed so that these incidental findings can be monitored as needed. If you had an x-ray performed, please understand that some fractures may not be seen on the initial set of x-rays. If your symptoms persist you might need a repeat set of x-rays to check for such a fracture. If you had a laceration evaluated, please understand that foreign bodies such as glass or wood may not be visible to the naked eye or on plain x-rays. If the wound becomes red, swollen, increasingly more painful or if there is any drainage from the wound, please have it reevaluated by a physician for the possibility of a retained foreign body. If you're unable to follow up as outlined in the discharge instructions please return to the emergency department. Thank you for choosing the [facility] Emergency Department for your care. It was a pleasure to serve you today. Thomas Huitron M.D. [facility] Departure Forms: Customer Survey General Discharge Information Admission Note Spoke With: Terri REEVES,Jonny Vogel Documentation of Exam: Documentation of any treatments & extenuating circumstances including Concerns Regarding Discharge (functional status, medication knowledge or non-compliance, living conditions, etc.) that warrant an admission rather than observation: Patient has suffered a left chest contusion and left shoulder and hip strains as a result of a mechanical fall. His ability to ambulate has already been compromised by a prior left-sided stroke. He is currently unable to ambulate secondary to generalized weakness and his left chest contusion and left shoulder and hip strains; this places him at high risk of falling with additional injury. In addition he would have great difficulty in not only performing ADLs but also in complying with outpatient treatment. These issues make him a very poor candidate for outpatient management. I feel he now requires hospitalization for pain control, evaluation by physical therapy and consideration of short-term therapy given his difficulty in ambulation.
--- NOTE | 2017-06-30 20:47 | RADIOLOGY REPORT ---
EXAMINATION: XR RIBS, LEFT CLINICAL INFORMATION: Fall, pain COMPARISON: 06/21/2017 chest x-ray TECHNIQUE: 2 views of the left ribs were obtained. FINDINGS: The lung volumes are low. No consolidation, pneumothorax, or pleural effusion. The cardiomediastinal silhouette is stable. No acute rib fractures. Degenerative changes of the left shoulder are present. Partial visualization of IVC filter in the abdomen. IMPRESSION: No acute rib fractures. No acute pulmonary findings. Stable cardiomediastinal silhouette.
--- NOTE | 2017-06-30 20:53 | RADIOLOGY REPORT ---
EXAMINATION: 3 views of the left shoulder CLINICAL INFORMATION: Status post fall with pain and tenderness COMPARISON: None FINDINGS: No fractures. The bony articulations are maintained. The left humeral head is high riding suggesting chronic rotator cuff injury. Imaged left lung is clear. There is cervical spondylosis. IMPRESSION: No acute osseous findings. Evidence of chronic left-sided rotator cuff injury.
--- NOTE | 2017-06-30 20:55 | RADIOLOGY REPORT ---
EXAMINATION: XR HIP, LEFT X-RAY LEFT FEMUR CLINICAL INFORMATION: Fall, pain COMPARISON: 03/04/2014 x-ray TECHNIQUE: Two views of the left hip. AP and lateral views of the left femur FINDINGS: There are postsurgical changes of internal fixation of the left femur with intramedullary jaspreet. Heterotopic ossification surrounding the left femoral neck and intertrochanteric region noted, chronic finding. The femoral head is aligned within the acetabulum without evidence of dislocation. There is no acute left femoral fracture. The symphysis pubis is intact. The soft tissue is unremarkable. IMPRESSION: No acute left femoral fracture. No left hip dislocation.
[2017-06-30 23:32] LABS: ABSOLUTE BASOPHIL COUNT 0 /CUMM (0.0-0.2); ABSOLUTE EOSINOPHIL COUNT 0.3 /CUMM (0.0-0.7); ABSOLUTE GRANULOCYTE CT 4.1 /CUMM (1.4-6.5); ABSOLUTE LYMPH COUNT 0.8 /CUMM (1.2-3.4); ABSOLUTE MONOCYTE COUNT 0.5 /CUMM (0.10-0.60); BASOPHIL % 0.3 % (0.0-2.0); EOSINOPHIL % 5.4 % (0-5); GRANULOCYTE % 72.1 % (42.2-75.2); HEMATOCRIT 31.1 % (42-52); MEAN CORPUSCULAR HGB 30.9 PG (27.0-31.0); MEAN CORPUSCULAR HGB CONC 33.5 G/DL (33.0-37.0); MEAN CORPUSCULAR VOLUME 92.3 FL (80.0-94.0); MEAN PLATELET VOLUME 6.6 FL (7.4-10.4); PLATELET COUNT 216 /CUMM (130-400); RBC DISTRIBUTION WIDTH 14.3 % (11.5-14.5); RED BLOOD CELL CT 3.37 /CUMM (4.70-6.10); WHITE BLOOD CELL COUNT 5.7 /CUMM (4.8-10.8)
[2017-07-01 01:34] VITALS: BP 150/98
--- NOTE | 2017-07-01 03:44 | History & Physical ---
Sharda Reyes MD 07/01/17 0343: General Information and HPI MD Statement: I have seen and personally examined NUBIA PAGAN and documented this H&P. 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 The patient states that he was at home and went to get up from a chair and tripped over his feet. He denies any loss of consciousness, head strike, dizziness, change in vision, lightheadedness, palpitations, chest pain, headache , seizure activity. He denies any recent increased bleeding although he is on Coumadin. He states that he fell on his left side and called the paramedics from the floor. There was no one else at home at the time. The patient lives alone. He was unable to get up from the time he fell until when the paramedics came. The patient normally uses a hemiwalker at home. His house has no stairs. He has a good support system and his entire family lives in the area. The patient states that he is compliant with all his medications. He has been eating well since his discharge from [facility]. His incision sites from his laparoscopic cholecystectomy is clean and dry, bandaged. He denies any urinary symptoms. Patient denied any injury to his lower extremities but he does have notable changes on his shins bilaterally since last admission. Allergies/Medications Allergies: Coded Allergies: Iodinated Contrast- Oral and IV Dye (UNKNOWN 11/30/16) Penicillins (UNKNOWN 11/30/16) bacitracin (PER PT EYE OINTMENT -DOES NOT REMEMBER REACTION 05/05/17) Home Med list Amlodipine (Norvasc) 2.5 MG TABLET 1 TAB PO DAILY HEART (Reported) Escitalopram Oxalate (Lexapro) 20 MG TABLET 1 TAB PO DAILY DEPRESSION ( Reported) Famotidine 20 MG TABLET 1 TAB PO DAILY GI (Reported) Levetiracetam (Keppra) 500 MG TABLET 1 TAB PO BID SEIZURES (Reported) Levothyroxine Sodium 125 MCG TABLET 1 TAB PO DAILY AC THYROID (Reported) Linaclotide (Linzess) 290 MCG CAPSULE 1 CAP PO DAILY BOWEL (Reported) Lisinopril (Prinivil) 5 MG TABLET 1 TAB PO DAILY BP (Reported) Melatonin 5 MG TABLET 1 TAB PO QPM SLEEP (Reported) Multiple Vitamin (Multivitamins) 1 EACH TABLET 1 TAB PO DAILY SUPPLEMENT ( Reported) Simvastatin (Zocor*) 20 MG TABLET 1 TAB PO QPM CHOLESTEROL (Reported) Tamsulosin HCl (Flomax) 0.4 MG CAP.ER.24H 2 CAP PO DAILY PROSTATE (Reported) Warfarin Sodium (Coumadin) 7.5 MG TABLET 1 TAB PO 1700 BLOOD THINNER ( Reported) Compliance With Home Meds: GOOD Past History Travel History Traveled to [place] past 21 day No Medical History Neurological: seizure, CVA-L SIDED PARLAYSIS EENT: NONE Cardiovascular: hypertension, hyperlipidemia, PVD Respiratory: NONE Gastrointestinal: NONE Hepatic: NONE Renal: NONE Musculoskeletal: NONE Psychiatric: NONE Endocrine: hypothyroidism Blood Disorders: NONE Cancer(s): NONE History of MRSA: No History of VRE: No History of CDIFF: No Isolation History: Standard Surgical History Surgical History: none Past Family/Social History Family History Relations & Conditions if any FATHER (PVD, Lung Cancer). . MOTHER (DM, Breast Ca, Stroke). . Psychosocial History Services at Home: Home Health Aide, Nursing Smoking Status: Never Smoked Functional Ability Ambulation: walker Review of Systems Review of Systems Constitutional: Reports: no symptoms. EENTM: Reports: no symptoms. Cardiovascular: Reports: no symptoms. Respiratory: Reports: no symptoms. GI: Reports: no symptoms. Genitourinary: Reports: no symptoms. Musculoskeletal: Reports: no symptoms. Skin: Reports: no symptoms. Neurological/Psychological: Reports: tremors, weakness. Hematologic/Endocrine: Reports: no symptoms. Immunologic/Allergic: Reports: no symptoms. Exam & Diagnostic Data Last 24 Hrs of Vital Signs/I&O Vital Signs Date Time Temp Pulse Resp B/P B/P Pulse O2 O2 Flow FiO2 Mean Ox Delivery Rate 07/01 0655 97.9 68 20 144/92 93 07/01 0134 97.9 63 20 150/98 93 07/01 0017 97.7 86 20 143/76 98 Room Air 07/01 0016 Room Air 06/30 2256 84 20 144/70 97 Room Air 06/30 1918 97.3 70 18 132/81 96 Room Air Intake & Output 07/01 0800 07/01 0000 06/30 1600 Intake Total 240 120 Output Total 150 Balance 90 120 Intake, Oral 240 120 Output, Urine 150 Patient 215 lb 213 lb Weight Weight Reported by Patient Estimated Measurement Method Physical Exam General Appearance Alert, Oriented X3, Cooperative, No Acute Distress Skin Red petechiae on shins with purple discoloration secondary to chronic venous insufficiency, changed since last admission Skin Temp/Moisture Exam: Warm/Dry Sepsis Skin Exam (color): Normal for Ethnicity HEENT Atraumatic, PERRLA, EOMI, Mucous Membr. moist/pink Neck Supple, No JVD Cardiovascular Regular Rate, Normal S1, Normal S2, No Murmurs Lungs Clear to Auscultation, Normal Air Movement Abdomen Normal Bowel Sounds, Soft, No Tenderness, No Hepatospenomegaly, No Masses Neurological Normal Speech, Sensation Intact, Cranial Nerves 3-12 NL, Reflexes 2 +, strength on RUE AND RLE 2/5 sp CVA Extremities No Clubbing, No Cyanosis, No Edema, Normal Pulses, No Tenderness/ Swelling Vascular Normal Pulses, Pulses Symmetrical Sepsis Peripheral Pulse Location: Radial Sepsis Peripheral Pulse Exam: Normal Sepsis Cap Refill Exam: <2 Sec Last 24 Hrs of Labs/Santosh: Laboratory Tests 06/30/17 2322: Anion Gap 6, Estimated GFR > 60, BUN/Creatinine Ratio 10.0, Glucose 100 H, Calcium 8.5, Creatine Kinase 57, CBC w Diff NO MAN DIFF REQ, RBC 3.37 L, MCV 92.3, MCH 30.9, MCHC 33.5, RDW 14.3, MPV 6.6 L, Gran % 72.1, Lymphocytes % 14.1 L, Monocytes % 8.1, Eosinophils % 5.4 H, Basophils % 0.3, Absolute Granulocytes 4.1, Absolute Lymphocytes 0.8 L, Absolute Monocytes 0.5, Absolute Eosinophils 0.3, Absolute Basophils 0 Assessment/Plan Assessment: Patient is a 67 year old male with a PMH significant for seizure disorder on Keppra, 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 Patient denies any lingering urinary issues as he was treated for UTI during his last admission. He denies any fever or chills, infection of the incision sites for his laparoscopic cholecystectomy. In the ED, temperature 97.9, pulse rate 68, respiratory rate 20, blood pressure 144/92, 93% oxygen on room air. Patient has normal WBC count hemoglobin 10.4,, chronically at around this value, BEP normal, creatinine kinase normal. EKG normal sinus rhythm, unchanged from last time. Imaging was negative for fracture and hip, femur, ribs, shoulder x-rays. Physical exam was positive for weakness of the left upper and left lower extremities and red petechiae on the shins with a background of chronic venous insufficiency which the patient had on last admission. Plan Fall: Patient has left-sided weakness at baseline and was recently discharged from the hospital status post upper scalp a cholecystectomy and treatment for UTI. The patient does not appear to have infection of the surgical site or systemically. He was offered STI before but refused it. He is now here for placement in [facility] -PT consult -Fall precautions -Pain pathway Status post cholecystectomy -Liver function tests as per Dr. Gomes History of DVT -Patient is on Coumadin chronically -INR and dose accordingly Lower extremity skin changes -Patient does have chronic venous insufficiency but now has red petechiae bilaterally, do not cause him any pain -Please consider wound consult Patient is full code Regular diet DVT prophylaxis with Coumadin and Alps As Ranked By This Provider Problem List: 1. Fall Qualifiers Encounter type: initial encounter Qualified Code: W19.XXXA - Unspecified fall, initial encounter Core Measures/Misc (01/07) Acute Coronary Syndrome ACS Diagnosis: No Congestive Heart Failure Congestive Heart Failure Diagnosis No Cerebrovascular Accident CVA/TIA Diagnosis: No VTE (View Protocol) VTE Risk Factors Surgery No Mechanical VTE Prophylaxis d/t N/A MechProphylax Ordered No VTE Pharm Prophylaxis d/t NA PharmProphylax ordered Sepsis (View protocol) Sepsis Present: No Swetha Toscano 07/01/17 0700: Resident Review Statement Resident Statement: examined this patient, discussed with chemical engineering intern, agreed with chemical engineering intern, discussed with family, reviewed EMR data (avail), discussed with nursing , reviewed images Other Findings: Mr. Pagan is a 67 yo man with PMHx. of for CVA 2007 with residual left sided weakness on Coumadin, history of seizures on Keppra, Hx. of A. fib, history of hypertension and hyperlipidemia, history of hypothyroidism, GERD recently admitted for RUQ pain and increased LFTs presuably secondary to cholangitis and a passed gallstone, his MRCP was negative for biliary ductal dilation or choledocolithiasis suggests a stone has passed. He had cholecystitis on imaging s/p cholecystectomy patient discharge home with home health service (He refused STR) now he came in with mechanical fall, nneds STR. his only complaint is pain on the right hip, otherwise negative systematic review. DVT ppx Coumadin, he is FC Terri REEVES,[facility] 07/01/17 1436: Attending MD Review Statement Attending Statement Attending MD Statement: examined this patient, discuss w/resident/PA/IMMIGRATION CONSULTANT, agreed w/resident/PA/IMMIGRATION CONSULTANT, discussed with family, reviewed EMR data (avail), discussed with nursing, discussed with case mgmt, reviewed images, amended to note Attending Assessment/Plan: Pt with recent alma rosa, UTI, Previous dvt on anticoag, htn, seizures, previous cva , Now s/p fall gait imbalance Recent alma rosa with Altered lft Previous dvt on warfarin Chronic venostasis REcurrent uti REC Admit and needs placement Watch the hip Cont all meds Other plan as above
[2017-07-01 06:55] VITALS: BP 144/92
[2017-07-01 08:53] LABS: ABSOLUTE BASOPHIL COUNT 0 /CUMM (0.0-0.2); ABSOLUTE EOSINOPHIL COUNT 0.5 /CUMM (0.0-0.7); ABSOLUTE GRANULOCYTE CT 3.1 /CUMM (1.4-6.5); ABSOLUTE MONOCYTE COUNT 0.4 /CUMM (0.10-0.60); BASOPHIL % 0.7 % (0.0-2.0); EOSINOPHIL % 9.9 % (0-5); GRANULOCYTE % 61.5 % (42.2-75.2); HEMATOCRIT 31.7 % (42-52); MEAN CORPUSCULAR HGB 31.3 PG (27.0-31.0); MEAN CORPUSCULAR HGB CONC 33.8 G/DL (33.0-37.0); MEAN CORPUSCULAR VOLUME 92.6 FL (80.0-94.0); MEAN PLATELET VOLUME 6.9 FL (7.4-10.4); PLATELET COUNT 214 /CUMM (130-400); RBC DISTRIBUTION WIDTH 14.2 % (11.5-14.5); RED BLOOD CELL CT 3.42 /CUMM (4.70-6.10)
[2017-07-01 09:40] LABS: PT 25.2 SEC (9.4-12.5)
[2017-07-01 14:35] VITALS: BP 116/80
--- NOTE | 2017-07-01 14:36 | Admission Certification ---
Admission Certification Certification Statement - As attending physician, I certify that at the time of - admission, based on clinical presentation, severity of - symptoms, need for further diagnostic testing and - therapeutic interventions, and risk of adverse outcomes - without in-hospital treatment, in my clinical assessment, - this patient requires an acute hospital stay for a minimum - of two nights or longer. I have also considered psychsocial - factors such as support system, advanced age, financial - issues, cognitive issues, and failed out-patient treatments, - past re-admission history, safety of patient, and lack of - compliance as applicable. Specific rationale supporting this admission is: WEAKNESS AND RULE OUT STROKE WITH GAIT IMBALANCE AND FALL
[2017-07-01 22:04] VITALS: BP 150/80
[2017-07-01 22:08] VITALS: BP 116/80
[2017-07-02 06:04] VITALS: BP 160/92
--- NOTE | 2017-07-02 07:43 | PN- Housestaff ---
Subjective Follow-up For: Fall most likely deconditioning Subjective: Patient visited today, was lying in bed comfortably in no acute distress, was alert and oriented. in baseline hemiplegic second to CVA. admitted yesterday after a fall, patient was recently discharged from hospital after refusing going to [facility] upon interview with me. No fever or chills, no shortness of breathing, no chest pain, no other events. pending placement patient was stable to be discharged. Review of Systems Constitutional: Reports: see HPI. Objective Last 24 Hrs of Vital Signs/I&O Vital Signs Date Time Temp Pulse Resp B/P B/P Pulse O2 O2 Flow FiO2 Mean Ox Delivery Rate 07/02 0604 97.6 63 20 160/92 94 07/01 2208 98.7 61 20 116/80 92 Room Air 07/01 1435 97.9 60 20 116/80 93 Room Air 07/01 0952 80 110/80 07/01 0951 80 110/80 Intake & Output 07/02 1600 07/02 0800 07/02 0000 Intake Total Output Total 800 150 Balance -800 -150 Output, Urine 800 150 Physical Exam General Appearance: Alert, Oriented X3, Cooperative, No Acute Distress Skin Temp/Moisture Exam: Warm/Dry Sepsis Skin Exam (color): Normal for Ethnicity HEENT: Atraumatic Cardiovascular: Normal S1, Normal S2 Lungs: Clear to Auscultation, Normal Air Movement Abdomen: scar of surgery scope Neurological: Normal Speech, hemiplegic in baseline in right side, grossly no change. Extremities: No Edema Current Medications: Current Medications Sig/Miladis Start time Last Medication Dose Route Stop Time Status Admin Acetaminophen 1,000 MG Q6P PRN 07/01 0730 AC N/A 1 UNIT IV Acetaminophen 650 MG Q4P PRN 07/01 0430 AC PO Amlodipine Besylate 2.5 MG DAILY 07/01 1000 AC 07/01 PO 0952 Atorvastatin Calcium 10 MG 1700 07/01 1700 AC 07/01 PO 1742 Escitalopram Oxalate 20 MG DAILY 07/01 1000 AC 07/01 PO 0952 Famotidine 20 MG DAILY 07/01 1000 AC 07/01 PO 0951 Ketorolac 15 MG Q6P PRN 07/01 0500 AC 07/01 Tromethamine IV 1743 Levetiracetam 500 MG BID 07/01 1000 AC 07/01 PO 2115 Levothyroxine Sodium 0.125 MG DAILY AC 07/01 0700 AC 07/02 PO 0606 Lisinopril 5 MG DAILY 07/01 1000 AC 07/01 PO 0951 Melatonin 5 MG QPM 07/01 2200 AC 07/01 PO 2115 Morphine Sulfate 2 MG Q6P PRN 07/01 0430 AC IV Multivitamins 1 TAB DAILY 07/01 1000 AC 07/01 Therapeutic PO 0951 Oxycodone/ 1 TAB Q6P PRN 07/01 0730 AC 07/01 Acetaminophen PO 0951 Polyethylene Glycol 17 GM DAILY NEEDED PRN 07/02 0815 AC PO Tamsulosin HCl 0.8 MG DAILY 07/01 1000 AC 07/01 PO 0952 Warfarin Sodium 7.5 MG 1700 07/01 1700 AC 07/01 PO 1742 Last 24 Hrs of Lab/Santosh Results Last 24 Hrs of Labs/Mics: Laboratory Tests 07/02/17 0714: Anion Gap 8, Estimated GFR > 60, BUN/Creatinine Ratio 8.9, PT Pending, INR Pending, CBC w Diff NO MAN DIFF REQ, RBC 3.61 L, MCV 92.3, MCH 31.1 H, MCHC 33.7, RDW 14.0, MPV 6.5 L, Gran % 63.0, Lymphocytes % 17.2 L, Monocytes % 9.0, Eosinophils % 9.9 H, Basophils % 0.9, Absolute Granulocytes 2.8, Absolute Lymphocytes 0.8 L, Absolute Monocytes 0.4, Absolute Eosinophils 0.4, Absolute Basophils 0 Assessment/Plan Assessment: Patient is a 67 year old male presented after a fall PMH: seizure disorder on Keppra, 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 Patient had normal WBC count hemoglobin 10.4, chronically at around this value, BEP normal, creatinine kinase normal. EKG normal sinus rhythm, unchanged from last time. Imaging was negative for fracture and hip, femur, ribs, shoulder x-rays. Physical exam was positive for weakness of the left upper and left lower extremities and red petechiae on the shins with a background of chronic venous insufficiency which the patient had on last admission. Patient was admitted to floor for management of following conditions. Fall Patient has left-sided weakness at baseline and was recently discharged from the hospital status post upper scalp a cholecystectomy and treatment for UTI. The patient does not appear to have infection of the surgical site or systemically. He was offered STR before but refused it. He is now here for placement in [facility]. -PT consult -Fall precautions -Pain pathway Status post cholecystectomy -Liver function tests as per Dr. Gomes History of DVT - Patient is on Coumadin chronically - Continue INR and dose accordingly Lower extremity skin changes -Patient does have chronic venous insufficiency but now has red petechiae bilaterally, do not cause him any pain -Please consider wound consult Patient is full code Regular diet DVT prophylaxis with Coumadin and Alps Patient stable to be discharged pending placement. Problem List: 1. Fall 2. Physical deconditioning Pain Ratin Pain Location: None Pain Goal: Pain 4 or less Pain Plan: Continue current plan Tomorrow's Labs & Rationales: CBC BEP INR
[2017-07-02 08:22] LABS: ABSOLUTE BASOPHIL COUNT 0 /CUMM (0.0-0.2); ABSOLUTE EOSINOPHIL COUNT 0.4 /CUMM (0.0-0.7); ABSOLUTE GRANULOCYTE CT 2.8 /CUMM (1.4-6.5); ABSOLUTE LYMPH COUNT 0.8 /CUMM (1.2-3.4); ABSOLUTE MONOCYTE COUNT 0.4 /CUMM (0.10-0.60); BASOPHIL % 0.9 % (0.0-2.0); EOSINOPHIL % 9.9 % (0-5); HEMATOCRIT 33.3 % (42-52); MEAN CORPUSCULAR HGB 31.1 PG (27.0-31.0); MEAN CORPUSCULAR HGB CONC 33.7 G/DL (33.0-37.0); MEAN CORPUSCULAR VOLUME 92.3 FL (80.0-94.0); MEAN PLATELET VOLUME 6.5 FL (7.4-10.4); PLATELET COUNT 225 /CUMM (130-400); RED BLOOD CELL CT 3.61 /CUMM (4.70-6.10); WHITE BLOOD CELL COUNT 4.5 /CUMM (4.8-10.8)
[2017-07-02 09:32] LABS: PT 25.1 SEC (9.4-12.5)
--- NOTE | 2017-07-02 10:37 | PN- Att Addend ---
Attending Addendum Attending Brief Note Events over the weekend noted Vital signs are stable , no fever. INR therapeutic had no changes on physical area nurse outreach case manager looking for short-term rehabilitation for the patient. As soon as available will transfer. See the CMR and discharge summary. Intake & Output 07/02 1600 07/02 0400 07/01 1600 07/01 0400 06/30 1600 06/30 0400 Intake Total 740 120 Output Total 800 150 550 Balance -800 -150 190 120 Intake, Oral 740 120 Output, Urine 800 150 550 Patient 215 lb Weight Weight Reported by Patient Measurement Method Current Medications Sig/Miladis Start time Last Medication Dose Route Stop Time Status Admin Acetaminophen 1,000 MG Q6P PRN 07/01 0730 AC N/A 1 UNIT IV Acetaminophen 650 MG Q4P PRN 07/01 0430 AC PO Amlodipine Besylate 2.5 MG DAILY 07/01 1000 AC 07/02 PO 0949 Atorvastatin Calcium 10 MG 1700 07/01 1700 AC 07/01 PO 1742 Escitalopram Oxalate 20 MG DAILY 07/01 1000 AC 07/02 PO 0948 Famotidine 20 MG DAILY 07/01 1000 AC 07/02 PO 0949 Ketorolac 15 MG Q6P PRN 07/01 0500 AC 07/01 Tromethamine IV 1743 Levetiracetam 500 MG BID 07/01 1000 AC 07/02 PO 0948 Levothyroxine Sodium 0.125 MG DAILY AC 07/01 0700 AC 07/02 PO 0606 Lisinopril 5 MG DAILY 07/01 1000 AC 07/02 PO 0949 Melatonin 5 MG QPM 07/01 2200 AC 07/01 PO 2115 Morphine Sulfate 2 MG Q6P PRN 07/01 0430 AC IV Multivitamins 1 TAB DAILY 07/01 1000 AC 07/02 Therapeutic PO 0949 Oxycodone/ 1 TAB Q6P PRN 07/01 0730 AC 07/02 Acetaminophen PO 0947 Polyethylene Glycol 17 GM DAILY NEEDED PRN 07/02 0815 AC 07/02 PO 0947 Tamsulosin HCl 0.8 MG DAILY 07/01 1000 AC 07/02 PO 0948 Warfarin Sodium 7.5 MG COUMADIN 1700 07/02 1700 AC PO 07/02 2359 Warfarin Sodium 7.5 MG 1700 07/01 1700 DC 07/01 PO 1742 Laboratory Tests 07/02/17 0714: Anion Gap 8, Estimated GFR > 60, BUN/Creatinine Ratio 8.9, PT 25.1 H, INR 2.28 H, CBC w Diff NO MAN DIFF REQ, RBC 3.61 L, MCV 92.3, MCH 31.1 H, MCHC 33.7, RDW 14.0, MPV 6.5 L, Gran % 63.0, Lymphocytes % 17.2 L, Monocytes % 9.0, Eosinophils % 9.9 H, Basophils % 0.9, Absolute Granulocytes 2.8, Absolute Lymphocytes 0.8 L, Absolute Monocytes 0.4, Absolute Eosinophils 0.4, Absolute Basophils 0 07/01/17 0845: PT 25.2 H, INR 2.29 H 07/01/17 0718: Anion Gap 7, Estimated GFR > 60, BUN/Creatinine Ratio 10.0, Total Bilirubin 0.7, Direct Bilirubin 0.3, AST 58, ALT 75 H, Alkaline Phosphatase 180 H, Total Protein 5.3 L, Albumin 2.8 L, CBC w Diff NO MAN DIFF REQ, RBC 3.42 L, MCV 92.6, MCH 31.3 H, MCHC 33.8, RDW 14.2, MPV 6.9 L, Gran % 61.5, Lymphocytes % 19.6 L, Monocytes % 8.3, Eosinophils % 9.9 H, Basophils % 0.7, Absolute Granulocytes 3.1, Absolute Lymphocytes 1.0 L, Absolute Monocytes 0.4, Absolute Eosinophils 0.5, Absolute Basophils 0 06/30/17 2322: Anion Gap 6, Estimated GFR > 60, BUN/Creatinine Ratio 10.0, Glucose 100 H, Calcium 8.5, Creatine Kinase 57, CBC w Diff NO MAN DIFF REQ, RBC 3.37 L, MCV 92.3, MCH 30.9, MCHC 33.5, RDW 14.3, MPV 6.6 L, Gran % 72.1, Lymphocytes % 14.1 L, Monocytes % 8.1, Eosinophils % 5.4 H, Basophils % 0.3, Absolute Granulocytes 4.1, Absolute Lymphocytes 0.8 L, Absolute Monocytes 0.5, Absolute Eosinophils 0.3, Absolute Basophils 0 Vital Signs Date Time Temp Pulse Resp B/P B/P Pulse O2 O2 Flow FiO2 Mean Ox Delivery Rate 07/02 0949 62 113/74 07/02 0948 62 11374 07/02 0604 97.6 63 20 160/92 94 / 2208 98.7 61 20 116/80 92 Room Air 07/01 1435 97.9 60 20 116/80 93 Room Air
--- NOTE | 2017-07-02 11:55 | Discharge Summary ---
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 The patient stated that he was at home and went to get up from a chair and tripped over his feet. He denieD any loss of consciousness, head strike, dizziness, change in vision, lightheadedness, palpitations, chest pain, headache, seizure activity. VS on presentation were stable. Physical exam did not reveal any new neurologcal focality, Shoulder/Hip and Rib Xray: other than Evidence of chronic left-sided rotator cuff injury there was no acute fractures noted. Patient was admitted to general medicine floor and underwent physical therapy. The reccomendation was for the patient to be discharged to [facility]. No changes on his chronic medical conditions medication list was made. He was discharge on day 3. Allergies: Coded Allergies: Iodinated Contrast- Oral and IV Dye (UNKNOWN 11/30/16) Penicillins (UNKNOWN 11/30/16) bacitracin (PER PT EYE OINTMENT -DOES NOT REMEMBER REACTION 05/05/17) Disposition Summary Disposition Principal Diagnosis: fall Additional Diagnosis: mecahnical fall Discharge Disposition: SNF Discharge Instructions General Discharge Information Code Status: Full Code Patient's Diet: regular Patient's Activity: As tolerated Follow-Up Instructions/Appts: F/u with PCP within 1 week f/u with surgery within 2-4 weeks regarding the cholecystectomy done from previous admission. Medications at Discharge Discharge Medications: Continue taking these medications: Tamsulosin HCl (Flomax) 0.4 MG CAP.ER.24H 2 Capsule ORAL DAILY Comments: Last Taken: 07/02/17 Time:9 am Simvastatin (Zocor*) 20 MG TABLET 1 Tablet ORAL Every night Comments: Last Taken:07-01-17 Time:1700 Amlodipine (Norvasc) 2.5 MG TABLET 1 Tablet ORAL DAILY Comments: Last Taken: 07/02/17 Time: 9 am Famotidine (Famotidine) 20 MG TABLET 1 Tablet ORAL DAILY Comments: Last Taken: 06/29/17 Time: 8:40 am Levothyroxine Sodium (Levothyroxine Sodium) 125 MCG TABLET 1 Tablet ORAL DAILY BEFORE BREAKFAST Comments: Last Taken: 07/02/17 Time: 6:00 am Warfarin Sodium (Coumadin) 7.5 MG TABLET 1 Tablet ORAL 5 PM Comments: Last Taken: 07/01/17 Time: 5:00 pm Lisinopril (Prinivil) 5 MG TABLET 1 Tablet ORAL DAILY Comments: Last Taken: 07/02/17 Time: 9 am Escitalopram Oxalate (Lexapro) 20 MG TABLET 1 Tablet ORAL DAILY Comments: Last Taken: 07/02/17 Time: 9 am Levetiracetam (Keppra) 500 MG TABLET 1 Tablet ORAL TWICE DAILY Comments: Last Taken:07/02/17 Time: 900 Linaclotide (Linzess) 290 MCG CAPSULE 1 Capsule ORAL DAILY Qty = 30 Comments: NOT GIVEN IN HOSPITAL Multiple Vitamin (Multivitamins) 1 EACH TABLET 1 Tablet ORAL DAILY Comments: Last Taken: 07/02/17 Time: 9 am Melatonin (Melatonin) 5 MG TABLET 1 Tablet ORAL Every night Comments: Last Taken: 06/29/17 Time: 8:15 pm Copies To: Jett REEVES,[facility]
--- NOTE | 2017-07-02 12:27 | Patient Discharge Instructions ---
Discharge Instructions General Discharge Information You were seen/treated for: fall/Deconditioning Watch for these problems: Severe weakness, shortness of breathing, chest pain, dizziness, terminal pain, bleeding or worsening symptoms Special Instructions: Please follow with your PCP within one of discharge. Please follow with your surgeon as instructed instructed a year previous admission. Diet Continue normal diet: No Recommended Diet: Heart Healthy Activity Full Activity/No Limits: No Activity Self Limited: Yes (with assistancne) Acute Coronary Syndrome Inclusion Criteria At DC or during hospital stay patient has or had the following: ACS DIAGNOSIS No Discharge Core Measures Meds if any: Prescribed or Continued at Discharge Meds if any: NOT Prescribed or Continued at Discharge Congestive Heart Failure Inclusion Criteria At DC or during hospital stay patient has or had the following: CHF DIAGNOSIS No Discharge Core Measures Meds if any: Prescribed or Continued at Discharge Meds if any: NOT Prescribed or Continued at Discharge Cerebrovascular accident Inclusion Criteria At DC or during hospital stay patient has or had the following: CVA/TIA Diagnosis No Discharge Core Measures Meds if any: Prescribed or Continued at Discharge Meds if any: NOT Prescribed or Continued at Discharge Venous thromboembolism Inclusion Criteria VTE Diagnosis No VTE Type NONE VTE Confirmed by (Test) NONE Discharge Core Measures - Per Current guidelines, there needs to be overlap - treatment for the first 5 days of Warfarin therapy. - If discharged on Warfarin prior to 5 days of - overlap therapy, the patient will need to be - assessed for post discharge needs including - *Post discharge parental anticoagulation - *Warfarin and/or parental anticoagulation education - *Follow up date to check INR post discharge At least 5 days overlap therapy as Inpatient No Meds if any: Prescribed or Continued at Discharge Note: Overlap Therapy is Warfarin and Anticoagulant Meds if any: NOT Prescribed or Continued at Discharge
[2017-07-02 12:49] VITALS: BP 113/74
== END 2017-07-02 14:47 | DRG 537 ==
LOC: ERH 19:12 → 2NB 23:38 → ERHI 23:38 → ENRESERV 07-01 00:11 → 2NB 07-01 01:19 → ENPENDDIS 07-02 13:11 → 2NB 07-02 14:47
PROVIDERS: Emergency Medicine; Internal Medicine; Student in an Organized Health Care Education/Training Program
DX: S76.012A Strain of muscle, fascia and tendon of left hip, initial encounter (principal); I69.354 Hemiplegia and hemiparesis following cerebral infarction affecting left non-dominant side; S20.212A Contusion of left front wall of thorax, initial encounter; S46.912A Strain of unspecified muscle, fascia and tendon at shoulder and upper arm level, left arm, initial encounter; I87.8 Other specified disorders of veins; Z86.718 Personal history of other venous thrombosis and embolism; Z79.01 Long term (current) use of anticoagulants; G40.909 Epilepsy, unspecified, not intractable, without status epilepticus; E78.5 Hyperlipidemia, unspecified; I73.9 Peripheral vascular disease, unspecified; E03.9 Hypothyroidism, unspecified; F32.9 Major depressive disorder, single episode, unspecified; Z90.49 Acquired absence of other specified parts of digestive tract; W07.XXXA Fall from chair, initial encounter; Z91.81 History of falling; Y92.009 Unspecified place in unspecified non-institutional (private) residence as the place of occurrence of the external cause; Z88.0 Allergy status to penicillin; Z88.1 Allergy status to other antibiotic agents; Z91.041 Radiographic dye allergy status; Z82.3 Family history of stroke; Z80.3 Family history of malignant neoplasm of breast; Z80.1 Family history of malignant neoplasm of trachea, bronchus and lung
CPT/HCPCS: 2NBSP; ERO; 36415; 36592; 71100-LT; 73030-LT; 73502-LT; 73552; 82436; 93005; 93010; 97161-GP; 97530-GO; J1885

== ENCOUNTER 2017-08-05 09:03 | Inpatient (IN) | payer OTHER, MEDICARE ==
[~2017-08-05] VITALS: Ht 185.4 cm; Wt 98.0 kg
--- NOTE | 2017-08-05 09:33 | ED MVC/FALL/TRAUMA COMPLAINT ---
History of Present Illness General Chief Complaint: Fall Stated Complaint: FALL OUT OF Source: patient, old records, EMS Exam Limitations: no limitations Vital Signs & Intake/Output Vital Signs & Intake/Output Vital Signs Date Time Temp Pulse Resp B/P B/P Pulse O2 O2 Flow FiO2 Mean Ox Delivery Rate 08/05 1635 98.1 70 18 126/78 97 Room Air 08/05 1102 97.6 66 18 130/84 98 Room Air 08/05 0908 96 08/05 0907 97.1 66 20 122/77 96 Room Air Allergies Coded Allergies: Iodinated Contrast- Oral and IV Dye (UNKNOWN PER PT 08/05/17) Penicillins (UNKNOWN PER PT 08/05/17) bacitracin (PER PT EYE OINTMENT -DOES NOT REMEMBER REACTION 05/05/17) Reconcile Medications Amlodipine (Norvasc) 2.5 MG TABLET 1 TAB PO DAILY HEART (Reported) Escitalopram Oxalate (Lexapro) 20 MG TABLET 1 TAB PO DAILY DEPRESSION ( Reported) Famotidine 20 MG TABLET 1 TAB PO DAILY GI (Reported) Levetiracetam (Keppra) 500 MG TABLET 1 TAB PO BID SEIZURES (Reported) Levothyroxine Sodium 125 MCG TABLET 1 TAB PO DAILY AC THYROID (Reported) Linaclotide (Linzess) 290 MCG CAPSULE 1 CAP PO DAILY BOWEL (Reported) Lisinopril (Prinivil) 5 MG TABLET 1 TAB PO DAILY BP (Reported) Melatonin 3 MG TABLET 1 TAB PO QPM SUPPLEMENT (Reported) Multiple Vitamin (Multivitamins) 1 EACH TABLET 1 TAB PO DAILY SUPPLEMENT ( Reported) Sennosides (Senna) 8.6 MG TABLET 2 TAB PO BID GI (Reported) Simvastatin (Zocor*) 20 MG TABLET 1 TAB PO QPM CHOLESTEROL (Reported) Tamsulosin HCl (Flomax) 0.4 MG CAP.ER.24H 2 CAP PO DAILY PROSTATE (Reported) Warfarin Sodium (Coumadin) 7.5 MG TABLET 1 TAB PO 1700 BLOOD THINNER ( Reported) Zolpidem Tartrate 5 MG TABLET 1 TAB PO QPM SLEEP (Reported) Triage Note: PT WAS TRANSFERING FROM BED TO AND FELL TO HIS LEFT. PT WITH LEFT SIDED WEAKNESS DUE TO CVA PT BIBA WITH COLLAR. PT STATES HIS BACK HURTS AND THAT HE FEEL FLAT ON HIS LEFT FACE. NO BRUISING OR REDNESS NOTED TO FACE. PT IS CURRENTLY TAKING COUMADING. Triage Nurses Notes Reviewed? yes HPI: Patient presents for evaluation of injuries sustained status post fall prior to arrival. Patient states he was in the kitchen making breakfast but began to feel weak. He then went to get into his wheelchair but couldn't quite make it around the foot rests and felt to the tiled floor. He denies head strike or loss of consciousness but presents for evaluation of pain in the "base of the skull" and upper back. He admits to having prior episodes of weakness. Past History Travel History Traveled to [place] past 21 day No Medical History Any Pertinent Medical History? 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 . MOTHER (DM, Breast Ca, Stroke). . Hx Contributory? No Review of Systems Review of Systems Constitutional: Reports: no symptoms. Eyes: Reports: no symptoms. Ears, Nose, Throat, Mouth: Reports: no symptoms. Respiratory: Reports: no symptoms. Cardiovascular: Reports: no symptoms. Gastrointestinal/Abdominal: Reports: no symptoms. Genitourinary: Reports: no symptoms. Musculoskeletal: Reports: see HPI. Skin: Reports: no symptoms. Neurological/Psychological: Reports: no symptoms. All Other Systems: Reviewed and Negative Physical Exam Physical Exam General Appearance: SEE BELOW Comments: Gen.: Well-nourished, well-developed, no acute respiratory distress. Head: Normocephalic, atraumatic, nontender. Eyes: Normal inspection bilaterally, chon, EOMI Ears: Normal inspection bilaterally Nose: Normal inspection Throat/mouth : Moist mucosa Neck: Supple, full range of motion, no goiter, nontender Heart: Regular rate and rhythm, no murmurs rubs or gallops Lungs: Clear to auscultation bilaterally with normal air entry Chest: Nontender Back: Normal range of motion, nontender, without signs of trauma Abdomen: Soft, nontender, nondistended, normal bowel sounds Pelvis: Stable and nontender Extremities: Normal range of motion grossly, mild tenderness of the left ankle and foot with no visible signs of trauma Neurologic: Cranial nerves grossly intact, speech is clear Skin: warm and dry and without ecchymoses or soft tissue swelling or erythema Psychiatric: Calm, cooperative, no apparent delusions or hallucinations Core Measures ACS in differential dx? No CVA/TIA Diagnosis No Sepsis Present: No Sepsis Focused Exam Completed? No Progress Differential Diagnosis: head trauma, C-spine trauma, anemia, dehydration, urinary tract infection, electrolyte abnormality, near syncope, dysrhythmia Plan of Care: Orders Procedure Date/time Status Heart Healthy Diet 08/06 B Active Misc Message 08/05 174 Active ED Holding Orders 08/05 174 Active Admit to inpatient 08/05 174 Active Vital Signs 08/05 174 Active Code Status 08/05 174 Active URINALYSIS 08/05 09 Complete PROTHROMBIN TIME 08/05 09 Complete COMPREHENSIVE METABOLIC PANEL 08/05 09 Complete CBC WITHOUT DIFFERENTIAL 08/05 932 Complete Current Medications Sig/Miladis Start time Last Medication Dose Stop Time Status Admin Acetaminophen 975 MG ONCE ONE 08/05 1800 UNVr (Tylenol) 08/05 1801 Laboratory Tests 08/05/17 1304: Urine Color YEL, Urine Clarity CLEAR, Urine pH 7.0, Ur Specific [place] 1.020, Urine Protein NEG, Urine Ketones NEG, Urine Nitrite NEG, Urine Bilirubin NEG, Urine Urobilinogen 1.0, Ur Leukocyte Esterase NEG, Ur Microscopic EXAM NOT REQUIRED, Urine Hemoglobin NEG, Urine Glucose NEG 08/05/17 0946: Anion Gap 6, Estimated GFR > 60, BUN/Creatinine Ratio 15.6, Glucose 89, Calcium 8.8, Total Bilirubin 1.2, AST 17, ALT 24, Alkaline Phosphatase 73, Total Protein 6.4, Albumin 3.4 L, Globulin 3.0, Albumin/Globulin Ratio 1.1, PT 26.6 H, INR 2.42 H, CBC w Diff NO MAN DIFF REQ, RBC 4.13 L, MCV 92.1, MCH 30.2, MCHC 32.8 L, RDW 13.2, MPV 7.1 L, Gran % 83.4 H, Lymphocytes % 9.6 L, Monocytes % 4.8, Eosinophils % 1.9, Basophils % 0.3, Absolute Granulocytes 5.3, Absolute Lymphocytes 0.6 L, Absolute Monocytes 0.3, Absolute Eosinophils 0.1, Absolute Basophils 0 Diagnostic Imaging: Discussed w/RAD: CT Scan. Radiology Impression: PATIENT: DANIS ELDRIDGE PRESENT AGE: 67 PATIENT ACCOUNT NO: [id number] : 50 LOCATION: [facility] ORDERING PHYSICIAN: Thomas Huitron MD SERVICE DATE: 08/05/17 EXAM TYPE : CAT - CT CERV SPINE WO IV CONTRAST; CT HEAD WO IV CONTRAST EXAMINATION: CT HEAD WITHOUT CONTRAST CT OF THE CERVICAL SPINE WITHOUT CONTRAST CLINICAL INFORMATION: 67-year-old male, status post fall, complaining of pain in the base of the skull region. COMPARISON: CT of the head and cervical spine done on 02/28. TECHNIQUE: Noncontrast CT scan of the head and cervical spine, using standard protocol. Multiplanar reconstructed images are obtained. Multiplanar reconstructed images are also obtained. 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 The remainder of the brain parenchyma shows mild age-appropriate diffuse cortical atrophy and minimal chronic microvascular deep white matter ischemic changes, appears stable since 02/28/2014. Specifically, no evidence of intra-axial mass, mass effect, extra- axial fluid collection, acute intraparenchymal hemorrhage and/or acute infarction present. Both orbital globes, extraocular muscles, optic nerves appear bilaterally symmetric and are unremarkable. The bilateral mastoid air cells appear unremarkable. Specifically, there is no evidence of any skull fracture especially base of the skull fracture identified. No significant change since 02/28/2014. CT OF THE CERVICAL SPINE: Persistent stable multilevel moderate degenerative spondylosis related changes are noted at C3-C4, C5-C6, C6- C7 and mild degenerative spondylosis within the remainder of the cervical spine. 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 Specifically, the bony alignments are intact. The cortices are intact. Significant facet joint arthritic changes are noted bilaterally, appears stable. There is no prespinal soft tissue hematoma present. Both lung apices are clear. IMPRESSION: 1. No acute intracranial pathology. 2. No CT evidence of any acute fracture, no subluxation or dislocation or prespinal soft tissue hematoma present at the cervical spine. 3. No significant change in the head and cervical spine since the prior studies done on 02/28/2014. DICTATED BY: Erin Cantu MD DATE/TIME DICTATED:08/05/171023 SLP:SHIRA DATE/TIME TRANSCRIBED:1023 CONFIDENTIAL, DO NOT COPY WITHOUT APPROPRIATE AUTHORIZATION. < Electronically signed in Other Vendor System> SIGNED BY: Erin Cantu MD 08/05/17 1227, PATIENT: DANIS ELDRIDGE PRESENT AGE: 67 PATIENT ACCOUNT NO: [id number] : 50 LOCATION: [facility] ORDERING PHYSICIAN: Thomas Huitron MD SERVICE DATE: 08/05/17 EXAM TYPE: RAD - XRY-FEMUR, LEFT 2 VIEWS; XRY-HIP 2-3 VIEWS, LEFT EXAMINATION: XR HIP, LEFT XR FEMUR, LEFT CLINICAL INFORMATION: Status post fall with left lower extremity pain COMPARISON : Left hip radiographs 06/30/2017. TECHNIQUE: AP and lateral views of the left femur were obtained. 2 views of the left hip and 2 views (4 images) of the left femur submitted. FINDINGS: Left hip: Prior healed left superior and inferior pubic rami fractures are seen. Prior healed proximal femoral fracture identified with solid heterotopic new bone formation medially. Intact transfemoral nail is identified without change. No acute fracture or hardware loosening. Left femur: The bones of the femur are osteopenic. No fracture or dislocation is seen. There is moderate soft tissue swelling at the knee and follow-up imaging of the knee is recommended. IMPRESSION: No acute hip or femur fracture is seen. Soft tissue swelling is seen at the level of the knee. Recommend dedicated knee radiographs for further evaluation. DICTATED BY: Torsten Arguello MD DATE/TIME DICTATED:08/05/171528 SLP:SHIRA DATE/ TIME TRANSCRIBED:08/05/171528 CONFIDENTIAL, DO NOT COPY WITHOUT APPROPRIATE AUTHORIZATION. <Electronically signed in Other Vendor System> SIGNED BY: Torsten Arguello MD 08/05/17 1537 Comments: 08/05/2017 1:23:45 PM I updated Danis and his family previously on test results. Urinalysis has been obtained and this appears normal. I have updated Danis again and he now complains of left hip pain (on previous exam he complained of mild left ankle and foot pain). Physical examination now reveals tenderness with range of motion of the left hip. Imaging ordered. Departure Departure Disposition: STILL A PATIENT Condition: Stable Clinical Impression Primary Impression: Sprain of left hip Qualifiers: Encounter type: initial encounter Qualified Code: S73.102A - Unspecified sprain of left hip, initial encounter Secondary Impressions: Back strain Qualifiers: Encounter type: initial encounter Qualified Code: S39.012A - Strain of muscle, fascia and tendon of lower back, initial encounter Fall at home Qualifiers: Encounter type: initial encounter Qualified Codes: W19.XXXA - Unspecified fall, initial encounter; Y92.009 - Unspecified place in unspecified non-institutional (private) residence as the place of occurrence of the external cause Gait instability Referrals: Vasile Frausto MD (PCP/Family) Additional Instructions: [id number] pain medication as needed for your injuries. Follow-up with Dr. Frausto within the next 3-5 days for reevaluation. Return if any concerns or sudden worsening. Please note that there might be incidental findings in your evaluation that are unrelated to the current emergency department visit. Please notify your primary care doctor about this emergency department visit in order to obtain and review all of the testing performed so that these incidental findings can be monitored as needed. If you had an x-ray performed, please understand that some fractures may not be seen on the initial set of x-rays. If your symptoms persist you might need a repeat set of x-rays to check for such a fracture. If you had a laceration evaluated, please understand that foreign bodies such as glass or wood may not be visible to the naked eye or on plain x-rays. If the wound becomes red, swollen, increasingly more painful or if there is any drainage from the wound, please have it reevaluated by a physician for the possibility of a retained foreign body. If you're unable to follow up as outlined in the discharge instructions please return to the emergency department. Thank you for choosing the [facility] Emergency Department for your care. It was a pleasure to serve you today. Thomas Huitron M.D. [facility] Departure Forms: Customer Survey General Discharge Information Admission Note Spoke With: Terri REEVES,Jonny Vogel Documentation of Exam: Documentation of any treatments & extenuating circumstances including Concerns Regarding Discharge (functional status, medication knowledge or non-compliance, living conditions, etc.) that warrant an admission rather than observation: Patient presented for evaluation of injuries sustained status post falling. He has strained his back and left hip resulting in significant gait instability. In fact the patient is unable to take a step once he is on his feet. I do not feel he can return home under the circumstances. It seems quite clear he would be in capable of managing his activities of daily living I would have substantial difficulty in complying with any out patient management and follow- up. Returning home would place him at great risk of falling with injury. I feel he now requires hospitalization for management of pain and physical therapy consultation. Orthopedic consultation should be considered given the patient's musculoskeletal injuries. If patient's left hip or back pain persists then additional imaging studies such as CAT scan or MRI should be considered. Given this patient's prior CVA with left-sided weakness and spasticity I feel his treatment and recovery will be prolonged and potentially complicated. Physical therapy consultation should also be considered. I feel this patient will require a multiple day hospitalization.
[2017-08-05 10:04] LABS: ABSOLUTE BASOPHIL COUNT 0 /CUMM (0.0-0.2); ABSOLUTE EOSINOPHIL COUNT 0.1 /CUMM (0.0-0.7); ABSOLUTE GRANULOCYTE CT 5.3 /CUMM (1.4-6.5); ABSOLUTE LYMPH COUNT 0.6 /CUMM (1.2-3.4); ABSOLUTE MONOCYTE COUNT 0.3 /CUMM (0.10-0.60); BASOPHIL % 0.3 % (0.0-2.0); EOSINOPHIL % 1.9 % (0-5); HEMATOCRIT 38.1 % (42-52); MEAN CORPUSCULAR HGB 30.2 PG (27.0-31.0); MEAN CORPUSCULAR HGB CONC 32.8 G/DL (33.0-37.0); MEAN CORPUSCULAR VOLUME 92.1 FL (80.0-94.0); MEAN PLATELET VOLUME 7.1 FL (7.4-10.4); PLATELET COUNT 144 /CUMM (130-400); RBC DISTRIBUTION WIDTH 13.2 % (11.5-14.5); RED BLOOD CELL CT 4.13 /CUMM (4.70-6.10); WHITE BLOOD CELL COUNT 6.3 /CUMM (4.8-10.8)
[2017-08-05 10:11] LABS: PT 26.6 SEC (9.4-12.5)
[2017-08-05 10:20] LABS: GRANULOCYTE % 83.4 % (42.2-75.2)
[2017-08-05] MEDS ORDERED: MELATONIN3 M4 PO (12:26)
[2017-08-05] MEDS ORDERED: ZOLPIDEM TARTRAT5 M1 PO (12:27)
--- NOTE | 2017-08-05 12:27 | CT SCAN REPORT ---
EXAMINATION: CT HEAD WITHOUT CONTRAST CT OF THE CERVICAL SPINE WITHOUT CONTRAST CLINICAL INFORMATION: 67-year-old male, status post fall, complaining of pain in the base of the skull region. COMPARISON: CT of the head and cervical spine done on 02/28/2014. TECHNIQUE: Noncontrast CT scan of the head and cervical spine, using standard protocol. Multiplanar reconstructed images are obtained. Multiplanar reconstructed images are also obtained. 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 The remainder of the brain parenchyma shows mild age-appropriate diffuse cortical atrophy and minimal chronic microvascular deep white matter ischemic changes, appears stable since 02/28/2014. Specifically, no evidence of intra-axial mass, mass effect, extra-axial fluid collection, acute intraparenchymal hemorrhage and/or acute infarction present. Both orbital globes, extraocular muscles, optic nerves appear bilaterally symmetric and are unremarkable. The bilateral mastoid air cells appear unremarkable. Specifically, there is no evidence of any skull fracture especially base of the skull fracture identified. No significant change since 02/28/2014. CT OF THE CERVICAL SPINE: Persistent stable multilevel moderate degenerative spondylosis related changes are noted at C3-C4, C5-C6, C6-C7 and mild degenerative spondylosis within the remainder of the cervical spine. 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 Specifically, the bony alignments are intact. The cortices are intact. Significant facet joint arthritic changes are noted bilaterally, appears stable. There is no prespinal soft tissue hematoma present. Both lung apices are clear. IMPRESSION: 1. No acute intracranial pathology. 2. No CT evidence of any acute fracture, no subluxation or dislocation or prespinal soft tissue hematoma present at the cervical spine. 3. No significant change in the head and cervical spine since the prior studies done on 02/28/2014.
[2017-08-05] MEDS ORDERED: SENNA8.6 M3 PO (12:28)
--- NOTE | 2017-08-05 15:37 | RADIOLOGY REPORT ---
EXAMINATION: XR HIP, LEFT XR FEMUR, LEFT CLINICAL INFORMATION: Status post fall with left lower extremity pain COMPARISON: Left hip radiographs 06/30/2017. TECHNIQUE: AP and lateral views of the left femur were obtained. 2 views of the left hip and 2 views (4 images) of the left femur submitted. FINDINGS: Left hip: Prior healed left superior and inferior pubic rami fractures are seen. Prior healed proximal femoral fracture identified with solid heterotopic new bone formation medially. Intact transfemoral nail is identified without change. No acute fracture or hardware loosening. Left femur: The bones of the femur are osteopenic. No fracture or dislocation is seen. There is moderate soft tissue swelling at the knee and follow-up imaging of the knee is recommended. IMPRESSION: No acute hip or femur fracture is seen. Soft tissue swelling is seen at the level of the knee. Recommend dedicated knee radiographs for further evaluation.
--- NOTE | 2017-08-05 19:57 | History & Physical ---
Alexx Felix [birth year]171955: General Information and HPI History of Present Illness: Mr. 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 Patient reports he was in the kitchen making breakfast using his hemiwalker for assistance. He then attempted to get into his wheelchair at which point he could not get around the leg rest and subsequently fell on his left side. He activated his life alert and waited on the floor for approximately 30 minutes before EMS arrival. He reports he has left-sided pain 10/10 in severity due to the fall. He usually uses a wheelchair only when carrying items. He lives alone but has a visiting nurse every other week and a MOTORCYCLE BUILDER 2-3x per week. He reports seizures that began 4 years ago with a persistent right-sided tremor but he is uncertain sure what caused it. In June he fell and required rehabilitation at [facility]. He reports Ambien was added to his current regimen one month ago. He denies fever, chills, nausea, vomiting, shortness of breath, blurry vision, lightheadedness, headache. Allergies/Medications Allergies: Coded Allergies: Iodinated Contrast- Oral and IV Dye (UNKNOWN PER PT 08/05/17) Penicillins (UNKNOWN PER PT 08/05/17) bacitracin (PER PT EYE OINTMENT -DOES NOT REMEMBER REACTION 05/05/17) Home Med list Amlodipine (Norvasc) 2.5 MG TABLET 1 TAB PO DAILY HEART (Reported) Escitalopram Oxalate (Lexapro) 20 MG TABLET 1 TAB PO DAILY DEPRESSION ( Reported) Famotidine 20 MG TABLET 1 TAB PO DAILY GI (Reported) Levetiracetam (Keppra) 500 MG TABLET 1 TAB PO BID SEIZURES (Reported) Levothyroxine Sodium 125 MCG TABLET 1 TAB PO DAILY AC THYROID (Reported) Linaclotide (Linzess) 290 MCG CAPSULE 1 CAP PO DAILY BOWEL (Reported) Lisinopril (Prinivil) 5 MG TABLET 1 TAB PO DAILY BP (Reported) Melatonin 3 MG TABLET 1 TAB PO QPM SUPPLEMENT (Reported) Multiple Vitamin (Multivitamins) 1 EACH TABLET 1 TAB PO DAILY SUPPLEMENT ( Reported) Sennosides (Senna) 8.6 MG TABLET 2 TAB PO BID GI (Reported) Simvastatin (Zocor*) 20 MG TABLET 1 TAB PO QPM CHOLESTEROL (Reported) Tamsulosin HCl (Flomax) 0.4 MG CAP.ER.24H 2 CAP PO DAILY PROSTATE (Reported) Warfarin Sodium (Coumadin) 7.5 MG TABLET 1 TAB PO 1700 BLOOD THINNER ( Reported) Zolpidem Tartrate 5 MG TABLET 1 TAB PO QPM SLEEP (Reported) Past History Travel History Traveled to [place] past 21 day No Medical History Neurological: seizure, CVA-L SIDED PARLAYSIS EENT: NONE Cardiovascular: hypertension, hyperlipidemia, PVD Respiratory: NONE Gastrointestinal: NONE Hepatic: NONE Renal: NONE Musculoskeletal: NONE Psychiatric: NONE Endocrine: hypothyroidism Blood Disorders: NONE Cancer(s): NONE History of MRSA: No History of VRE: No History of CDIFF: No Surgical History Surgical History: none Past Family/Social History Family History Relations & Conditions if any FATHER (PVD, Lung Cancer). . MOTHER (DM, Breast Ca, Stroke). . Psychosocial History Services at Home: Home Health Aide, Nursing ETOH Use: denies use Illicit Drug Use: denies illicit drug use Functional Ability Ambulation: walker Review of Systems Review of Systems Constitutional: Reports: see HPI. Exam & Diagnostic Data Last 24 Hrs of Vital Signs/I&O Vital Signs Date Time Temp Pulse Resp B/P B/P Pulse O2 O2 Flow FiO2 Mean Ox Delivery Rate 08/05 2218 98.1 72 20 138/70 93 08/05 2105 98.5 83 16 130/77 95 Room Air 08/05 1859 98.5 86 18 126/84 99 Room Air 08/05 1635 98.1 70 18 126/78 97 Room Air 08/05 1102 97.6 66 18 130/84 98 Room Air 08/05 0908 96 08/05 0907 97.1 66 20 122/77 96 Room Air Intake & Output 08/05 1600 08/05 0800 08/05 0000 Intake Total Output Total Balance Patient 170 lb Weight Weight Estimated Measurement Method Physical Exam General Appearance Alert, Oriented X3, Cooperative, No Acute Distress HEENT Atraumatic, PERRLA, EOMI, Mucous Membr. moist/pink Neck Supple, No JVD Cardiovascular Regular Rate, Normal S1, Normal S2, No Murmurs Lungs Clear to Auscultation, Normal Air Movement Abdomen Normal Bowel Sounds, Soft, No Tenderness Neurological Sensation Intact, Cranial Nerves 3-12 NL, right hand resting tremor Extremities No Edema, Normal Pulses, LUE/LLE 1/5 motor strength, left knee swelling and tenderness, BL skin discoloration Last 24 Hrs of Labs/Santosh: Laboratory Tests 08/05/17 1304: Urine Color YEL, Urine Clarity CLEAR, Urine pH 7.0, Ur Specific [place] 1.020, Urine Protein NEG, Urine Ketones NEG, Urine Nitrite NEG, Urine Bilirubin NEG, Urine Urobilinogen 1.0, Ur Leukocyte Esterase NEG, Ur Microscopic EXAM NOT REQUIRED, Urine Hemoglobin NEG, Urine Glucose NEG 08/05/17 0946: Anion Gap 6, Estimated GFR > 60, BUN/Creatinine Ratio 15.6, Glucose 89, Calcium 8.8, Total Bilirubin 1.2, AST 17, ALT 24, Alkaline Phosphatase 73, Total Protein 6.4, Albumin 3.4 L, Globulin 3.0, Albumin/Globulin Ratio 1.1, PT 26.6 H, INR 2.42 H, CBC w Diff NO MAN DIFF REQ, RBC 4.13 L, MCV 92.1, MCH 30.2, MCHC 32.8 L, RDW 13.2, MPV 7.1 L, Gran % 83.4 H, Lymphocytes % 9.6 L, Monocytes % 4.8, Eosinophils % 1.9, Basophils % 0.3, Absolute Granulocytes 5.3, Absolute Lymphocytes 0.6 L, Absolute Monocytes 0.3, Absolute Eosinophils 0.1, Absolute Basophils 0 Diagnostic Data Other Results CT CERV SPINE WO IV CONTRAST; CT HEAD WO IV CONTRAST IMPRESSION: 1. No acute intracranial pathology. 2. No CT evidence of any acute fracture, no subluxation or dislocation or prespinal soft tissue hematoma present at the cervical spine. 3. No significant change in the head and cervical spine since the prior studies done on 02/28/2014. XRY-FEMUR, LEFT 2 VIEWS; XRY-HIP 2-3 VIEWS, LEFT IMPRESSION: No acute hip or femur fracture is seen. Soft tissue swelling is seen at the level of the knee. Recommend dedicated knee radiographs for further evaluation. Assessment/Plan Assessment: Mr. 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 Problem list: Mechanical fall History of seizures Plan: Admit to general med for further evaluation and management Seizure precautions Fall precautions Resume home meds except warfarin Hold warfarin - no recent VTE reported PT evaluation for gait instability L knee XR to r/o fracture and/or dislocation Diet: Heart healthy DVT ppx: ALPS Code: As Ranked By This Provider Problem List: 1. Fall at home Qualifiers Encounter type: initial encounter Qualified Codes: W19.XXXA - Unspecified fall, initial encounter; Y92.009 - Unspecified place in unspecified non-institutional (private) residence as the place of occurrence of the external cause 2. Gait instability Core Measures/Misc (01/07) Acute Coronary Syndrome ACS Diagnosis: No Congestive Heart Failure Congestive Heart Failure Diagnosis No Cerebrovascular Accident CVA/TIA Diagnosis: No VTE (View Protocol) VTE Risk Factors Age>40 No Mechanical VTE Prophylaxis d/t N/A MechProphylax Ordered No VTE Pharm Prophylaxis d/t Other (therapeutic INR) Sepsis (View protocol) Sepsis Present: No Jonny Murray MD 08/05/17 2006: Attending MD Review Statement Attending Statement Attending MD Statement: examined this patient, discuss w/resident/PA/BILLING CLINICIAN, agreed w/resident/PA/BILLING CLINICIAN, discussed with family, reviewed EMR data (avail), discussed with nursing, discussed with case mgmt, reviewed images, amended to note Attending Assessment/Plan: PT with prior weakness due to multiple issues and recurrent fall now with fall and inability to ambulate and gait imbalance Pt with recent alma rosa this yr, recurrent UTI, Previous dvt on anticoag, htn, seizures, previous cva, Tremors, left sided weakness, tremors with pill rolling movement of the hand Now s/p fall, knee injury gait imbalance Recent alma rosa with Altered lft Previous dvt on warfarin no dvt in the past few yrs Prior mca stroke Chronic venostasis REcurrent uti BPH Hypothyroid on replacement rx Cont keppra and check level Watch for seizures Cont other meds Will follow REC Admit and needs placement PT OT eval Can dc warfarin permanently (no dvt in the past few yrs and had an mca stroke), recurrent fall, no sig pfo and start asprin 81 mg Cont all meds Knee xray PT /OT and care coordination Other plan as above Shade Funk 08/05/17 2310: Resident Review Statement Resident Statement: examined this patient, discussed with sports intern, agreed with sports intern, reviewed EMR data (avail), reviewed images, amended to note Other Findings: Patient is a 67 year old male with past medical history of seizure disorder on Keppra, CVA in 2007 with residual left sided severe weakness and history of DVT on Coumadin 7.5 mg, HTN on lisinopril and amlodipine, HLD, PVD, hypothyroidism, depression, GERD, laproscopic cholecystectomy, multiple falls came to the hospital history and complaint of fall. Patient was discharged from the [facility] with chief complaint of fall about 1 months ago to [facility] and he was discharged about couple of days ago. He reported that today while he was mowing from his heavy walker to his wheelchair he fell down on his left side. He denies any head trauma, loss of consciousness , nausea, vomiting, abdominal pain, fevers, chills, additional weakness. Patient has been living alone on his own despite being very weak on his left side. Vital signs is stable however patient had severe left-sided hip pain while trying to walk. Physical exam alert and oriented 3 Heart S1-S2 normal Limited chest exam which was clear bilaterally Abdomen nontender Right upper extremity and right lower extremity strength is 5 out of 5 Left upper extremity and left lower extremity strength is 0 out of 5 Swelling and tenderness under left knee without any redness Resting tremor on the right hand Labs are notable for hemoglobin 12.5, INR 2.45, UA Unremarkable Hip x-ray, femur x-ray of the left side did not show any fracture Head CT and cervical spine CT did not show any acute pathology Assessment History of seizure disorder on Keppra History of multiple falls History of CVA with left-sided weakness History of hypothyroidism History of GERD History of DVT on Coumadin History of hypertension Left-sided hip pain and knee pain status post mechanical fall anemia Plan Admit to general medicine floor and evaluate for short-term rehabilitation Off warfarin and start aspirin due to multiple falls Continue medication for seizures, blood pressure, GERD, hypothyroidism, Hyperlipidemia PT and OT the morning Watch for any bleeding or increasing in pain in the left hip X-ray of the knee to rule out any acute fracture/bleeding Pain control with Tylenol for now Full code, DVT prophylaxis for now as mechanical and elevated INR, heart healthy diet, Tylenol for pain
--- NOTE | 2017-08-05 20:06 | Admission Certification ---
Admission Certification Certification Statement - As attending physician, I certify that at the time of - admission, based on clinical presentation, severity of - symptoms, need for further diagnostic testing and - therapeutic interventions, and risk of adverse outcomes - without in-hospital treatment, in my clinical assessment, - this patient requires an acute hospital stay for a minimum - of two nights or longer. I have also considered psychsocial - factors such as support system, advanced age, financial - issues, cognitive issues, and failed out-patient treatments, - past re-admission history, safety of patient, and lack of - compliance as applicable. Specific rationale supporting this admission is: fall gait imbalance and intractable pain
[2017-08-05 22:19] VITALS: BP 138/70
[2017-08-06 06:22] VITALS: BP 136/80
--- NOTE | 2017-08-06 07:57 | PN- Housestaff ---
Subjective Follow-up For: Fall Gait imbalance Subjective: The patient was seen and examined. Complains of left knee pain, however states that he did not land on his knee at the time fall. He denies any headache, dizzines, lightheadedness, n/v/abd pain, urinary symptoms. VSS. Review of Systems Constitutional: Reports: no symptoms. Objective Last 24 Hrs of Vital Signs/I&O Vital Signs Date Time Temp Pulse Resp B/P B/P Pulse O2 O2 Flow FiO2 Mean Ox Delivery Rate 08/06 1413 98.5 80 20 142/70 96 Room Air 08/06 0950 81 136/80 08/06 0949 81 136/80 08/06 0949 81 136/80 08/06 0622 98.4 81 20 136/80 94 Room Air 08/05 2219 98.1 72 20 138/70 93 08/05 2105 98.5 83 16 130/77 95 Room Air Intake & Output 08/06 1600 08/06 0800 08/06 0000 Intake Total 800 100 890 Output Total 450 400 Balance 800 -350 490 Intake, Oral 800 100 890 Number 0 Bowel Movements Output, Urine 450 400 Patient 216 lb Weight Weight Reported by Patient Measurement Method Physical Exam General Appearance: Alert, Cooperative, No Acute Distress Other Physical Findings: HEENT Atraumatic, PERRLA, EOMI, Mucous Membr. moist/pink Neck Supple, No JVD Cardiovascular Regular Rate, Normal S1, Normal S2, No Murmurs Lungs Clear to Auscultation, Normal Air Movement Abdomen Normal Bowel Sounds, Soft, No Tenderness Neurological Sensation Intact, Cranial Nerves 3-12 NL, right hand resting tremor Extremities No Edema, Normal Pulses, LUE/LLE 1/5 motor strength, left knee swelling and tenderness w/o ecchymosis, BL skin discoloration Current Medications: Current Medications Sig/Miladis Start time Last Medication Dose Route Stop Time Status Admin Acetaminophen 650 MG .STK-MED ONE 08/06 0605 DC PO 08/06 0606 Acetaminophen 650 MG Q6P PRN 08/05 2144 AC 08/06 PO 1855 Amlodipine Besylate 2.5 MG DAILY 08/06 09 AC 08/06 PO 0950 Aspirin Buffered 81 MG DAILY 08/06 0900 AC 08/06 PO 0950 Atorvastatin Calcium 10 MG 1700 08/06 1700 AC 08/06 PO 1749 Docusate Sodium 100 MG DAILY NEEDED PRN 08/06 0615 AC PO Escitalopram Oxalate 20 MG DAILY 08/06 899 AC 08/06 PO 0949 Famotidine 20 MG DAILY 08/06 899 AC 08/06 PO 0950 Levetiracetam 500 MG BID 08/06 899 AC 08/06 PO 0949 Levothyroxine Sodium 0.125 MG DAILY AC 08/06 07 AC 08/06 PO 0606 Lisinopril 5 MG DAILY 08/06 899 AC 08/06 PO 0949 Melatonin 3 MG QPM 08/06 2100 AC PO Multivitamins 1 TAB DAILY 08/06 899 AC 08/06 Therapeutic PO 0948 Tamsulosin HCl 0.8 MG DAILY 08/06 899 AC 08/06 PO 0949 Zolpidem Tartrate 5 MG QPM 08/06 2100 AC PO Last 24 Hrs of Lab/Santosh Results Last 24 Hrs of Labs/Mics: Laboratory Tests 08/06/17 0735: Anion Gap 10, Estimated GFR > 60, BUN/Creatinine Ratio 16.7, CBC w Diff NO MAN DIFF REQ, RBC 3.77 L, MCV 91.0, MCH 31.1 H, MCHC 34.2, RDW 13.0, MPV 7.5, Gran % 76.4 H, Lymphocytes % 12.9 L, Monocytes % 7.8, Eosinophils % 2.6, Basophils % 0.3, Absolute Granulocytes 4.8, Absolute Lymphocytes 0.8 L, Absolute Monocytes 0.5, Absolute Eosinophils 0.2, Absolute Basophils 0 Assessment/Plan Assessment: This is a 67 year old male with a PMH significant for seizure disorder on Keppra , 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 Problem list: -Mechanical fall -History of seizures Plan: * Seizure precautions * Fall precautions * C/w current home meds; hold warfarin * Will check keppra level * Hold warfarin - no recent VTE reported * PT evaluation for gait instability * L knee XR to r/o fracture and/or dislocation Diet: Heart healthy DVT ppx: ALPS Code:Full code Problem List: 1. Accidental fall 2. Seizure Pain Ratin Pain Location: Left knee Pain Goal: Pain 4 or less Pain Plan: Tylenol Tomorrow's Labs & Rationales: Problem list: CBC to monitor H&H
[2017-08-06 09:33] LABS: ABSOLUTE BASOPHIL COUNT 0 /CUMM (0.0-0.2); ABSOLUTE EOSINOPHIL COUNT 0.2 /CUMM (0.0-0.7); ABSOLUTE GRANULOCYTE CT 4.8 /CUMM (1.4-6.5); ABSOLUTE LYMPH COUNT 0.8 /CUMM (1.2-3.4); ABSOLUTE MONOCYTE COUNT 0.5 /CUMM (0.10-0.60); BASOPHIL % 0.3 % (0.0-2.0); EOSINOPHIL % 2.6 % (0-5); GRANULOCYTE % 76.4 % (42.2-75.2); HEMATOCRIT 34.3 % (42-52); MEAN CORPUSCULAR HGB 31.1 PG (27.0-31.0); MEAN CORPUSCULAR HGB CONC 34.2 G/DL (33.0-37.0); MEAN PLATELET VOLUME 7.5 FL (7.4-10.4); PLATELET COUNT 132 /CUMM (130-400); RED BLOOD CELL CT 3.77 /CUMM (4.70-6.10); WHITE BLOOD CELL COUNT 6.3 /CUMM (4.8-10.8)
--- NOTE | 2017-08-06 11:10 | PN- Att Addend ---
Attending Addendum Attending Brief Note 67-year-old male known to us and had gone to rehabilitation and back home again yesterday tried to get up to the wheelchair and felt weak and fell and was brought into the hospital and kept was seen by physical therapy this morning and definitely he needs rehabilitation again Have to consider long-term plans as he might not be safe at home. 24 TOTALS 08/06 0000 08/05 0000 Intake Total 890 Output Total 400 Balance 490 Intake, Oral 890 Output, Urine 400 Patient 216 lb Weight Weight Reported by Patient Measurement Method Current Medications Sig/Miladis Start time Last Medication Dose Route Stop Time Status Admin Acetaminophen 650 MG Q6P PRN 08/05 2145 AC 08/06 PO 0607 Acetaminophen 975 MG ONCE ONE 08/05 1800 DC 08/05 PO 08/05 1801 1802 Acetaminophen 0 .STK-MED ONE 08/05 1755 DC PO Amlodipine Besylate 2.5 MG DAILY 08/06 09 AC 08/06 PO 0950 Aspirin Buffered 81 MG DAILY 08/06 09 AC 08/06 PO 0950 Atorvastatin Calcium 10 MG 1700 08/06 1700 AC PO Docusate Sodium 100 MG DAILY NEEDED PRN 08/06 0615 AC PO Escitalopram Oxalate 20 MG DAILY 08/06 09 AC 08/06 PO 0949 Famotidine 20 MG DAILY 08/06 09 AC 08/06 PO 0950 Levetiracetam 500 MG BID 08/06 09 AC 08/06 PO 0949 Levothyroxine Sodium 0.125 MG DAILY AC 08/06 0700 AC 08/06 PO 0606 Lisinopril 5 MG DAILY 08/06 09 AC 08/06 PO 0949 Melatonin 3 MG QPM 08/06 2100 AC PO Multivitamins 1 TAB DAILY 08/06 09 AC 08/06 Therapeutic PO 0948 Tamsulosin HCl 0.8 MG DAILY 08/06 09 AC 08/06 PO 0949 Zolpidem Tartrate 5 MG QPM 08/06 2100 AC PO Laboratory Tests 08/06/17 0735: Anion Gap 10, Estimated GFR > 60, BUN/Creatinine Ratio 16.7, CBC w Diff NO MAN DIFF REQ, RBC 3.77 L, MCV 91.0, MCH 31.1 H, MCHC 34.2, RDW 13.0, MPV 7.5, Gran % 76.4 H, Lymphocytes % 12.9 L, Monocytes % 7.8, Eosinophils % 2.6, Basophils % 0.3, Absolute Granulocytes 4.8, Absolute Lymphocytes 0.8 L, Absolute Monocytes 0.5, Absolute Eosinophils 0.2, Absolute Basophils 0 08/05/17 1304: Urine Color YEL, Urine Clarity CLEAR, Urine pH 7.0, Ur Specific [place] 1.020, Urine Protein NEG, Urine Ketones NEG, Urine Nitrite NEG, Urine Bilirubin NEG, Urine Urobilinogen 1.0, Ur Leukocyte Esterase NEG, Ur Microscopic EXAM NOT REQUIRED, Urine Hemoglobin NEG, Urine Glucose NEG 08/05/17 0946: Anion Gap 6, Estimated GFR > 60, BUN/Creatinine Ratio 15.6, Glucose 89, Calcium 8.8, Total Bilirubin 1.2, AST 17, ALT 24, Alkaline Phosphatase 73, Total Protein 6.4, Albumin 3.4 L, Globulin 3.0, Albumin/Globulin Ratio 1.1, PT 26.6 H, INR 2.42 H, CBC w Diff NO MAN DIFF REQ, RBC 4.13 L, MCV 92.1, MCH 30.2, MCHC 32.8 L, RDW 13.2, MPV 7.1 L, Gran % 83.4 H, Lymphocytes % 9.6 L, Monocytes % 4.8, Eosinophils % 1.9, Basophils % 0.3, Absolute Granulocytes 5.3, Absolute Lymphocytes 0.6 L, Absolute Monocytes 0.3, Absolute Eosinophils 0.1, Absolute Basophils 0 Vital Signs Date Time Temp Pulse Resp B/P B/P Pulse O2 O2 Flow FiO2 Mean Ox Delivery Rate 08/06 0950 81 136/80 08/06 0949 81 136/80 08/06 0949 81 136/80 08/06 0622 98.4 81 20 136/80 94 Room Air 08/05 2219 98.1 72 20 138/70 93 08/05 2105 98.5 83 16 130/77 95 Room Air 08/05 1859 98.5 86 18 126/84 99 Room Air 08/05 1635 98.1 70 18 126/78 97 Room Air
[2017-08-06 14:13] VITALS: BP 142/70
--- NOTE | 2017-08-06 16:44 | RADIOLOGY REPORT ---
EXAMINATION: XR KNEE, LEFT CLINICAL INFORMATION: Pain and swelling status post fall. Rule out any pathology. COMPARISON: Left femur films dated 08/05/2017. TECHNIQUE: Four views of the left knee. FINDINGS: There is marked osteopenia. Small amount of soft tissue swelling is seen in the prepatellar region. A large suprapatellar patella knee joint effusion is seen. Slight irregularity of the articular surface of the patella is seen on the lateral view with small 0.5 cm density seen paralleling the articular surface. This may be related to a subtle fracture versus loose body versus spur/degenerative change. The joint space height is relatively well-maintained. There is some spurring at the patellofemoral and lateral femoral compartments. The quadriceps tendon and patellar tendon appear largely unremarkable. IMPRESSION: 1. Prepatellar soft tissue swelling and large suprapatellar knee joint effusion. 2. Irregularity of the articular surface of the patella seen on lateral view only. This is of uncertain etiology, but in the setting of trauma raises the suspicion of the articular surface fracture. Alternatively, findings may be related to degenerative change and or subtle loose body in the joint. Close clinical correlation is requested. If warranted, further assessment with MRI scan could be performed. 3. Mild degenerative changes in the patellofemoral and lateral femoral compartments. 4. Diffuse osteopenia.
--- NOTE | 2017-08-06 17:05 | Event Note ---
Event Note Event Note: Resultes of Knee xray noted. Called Ortho consult to assess the patient. Sign out provided to the covering team to follow.
[2017-08-06 22:23] VITALS: BP 112/80
[2017-08-07 06:00] VITALS: BP 118/76
--- NOTE | 2017-08-07 07:35 | PN- Housestaff ---
Subjective Follow-up For: Fall Gait imbalance Subjective: The patient was seen and examined. Offers no complaints. He denies any headache, dizzines, lightheadedness, n/v/abd pain, urinary symptoms. VSS. Review of Systems Constitutional: Reports: no symptoms. Objective Last 24 Hrs of Vital Signs/I&O Vital Signs Date Time Temp Pulse Resp B/P B/P Pulse O2 O2 Flow FiO2 Mean Ox Delivery Rate 08/07 0844 76 118/68 08/07 0600 97.9 67 18 118/76 97 Room Air 08/06 2223 97.6 74 18 112/80 93 Room Air 08/06 1413 98.5 80 20 142/70 96 Room Air Intake & Output 08/07 1600 08/07 0800 08/07 0000 Intake Total 200 120 Output Total 600 500 Balance -600 -300 120 Intake, Oral 200 120 Number 0 0 Bowel Movements Output, Urine 600 500 Physical Exam General Appearance: Alert, Cooperative, No Acute Distress Other Physical Findings: HEENT Atraumatic, PERRLA, EOMI, Mucous Membr. moist/pink Neck Supple, No JVD Cardiovascular Regular Rate, Normal S1, Normal S2, No Murmurs Lungs Clear to Auscultation, Normal Air Movement Abdomen Normal Bowel Sounds, Soft, No Tenderness Neurological Sensation Intact, Cranial Nerves 3-12 NL, right hand resting tremor Extremities No Edema, Normal Pulses, LUE/LLE 1/5 motor strength, left knee swelling and tenderness w/o ecchymosis, BL skin discoloration Current Medications: Current Medications Sig/Miladis Start time Last Medication Dose Route Stop Time Status Admin Acetaminophen 650 MG .STK-MED ONE 08/06 185 DC PO 08/06 185 Acetaminophen 650 MG Q6P PRN 08/05 2144 AC 08/06 PO 1855 Amlodipine Besylate 2.5 MG DAILY 08/06 09 AC 08/07 PO 0846 Aspirin Buffered 81 MG DAILY 08/06 09 AC 08/07 PO 0844 Atorvastatin Calcium 10 MG 1700 08/06 1700 AC 08/06 PO 1749 Celecoxib 200 MG BID 08/06 2100 DC 08/07 PO 08/07 0901 0844 Docusate Sodium 100 MG DAILY NEEDED PRN 08/06 0615 AC PO Escitalopram Oxalate 20 MG DAILY 08/06 09 AC 08/07 PO 0845 Famotidine 20 MG DAILY 08/06 09 AC 08/07 PO 0846 Levetiracetam 500 MG BID 08/06 09 AC 08/07 PO 0845 Levothyroxine Sodium 0.125 MG DAILY AC 08/06 07 AC 08/07 PO 0601 Lisinopril 5 MG DAILY 08/06 09 AC 08/07 PO 0847 Melatonin 3 MG QPM 08/06 2100 AC 08/06 PO 2146 Morphine Sulfate 1 MG ONCE ONE 08/06 2044 DC 08/06 IV 08/06 Multivitamins 1 TAB DAILY 08/06 899 AC 08/07 Therapeutic PO 0847 Tamsulosin HCl 0.8 MG DAILY 08/06 899 AC 08/07 PO 0844 Zolpidem Tartrate 5 MG QPM 08/06 2099 AC 08/06 PO 2030 Assessment/Plan Assessment: This is a 67 year old male with a PMH significant for seizure disorder on Keppra , 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 Problem list: -Mechanical fall -History of seizures Plan: * Seizure precautions * Fall precautions * C/w current home meds; hold warfarin * Keppra level pending * Hold warfarin - no recent VTE reported * PT evaluation for gait instability * MRI of the left knee * Ortho recommendations appreciated Diet: Heart healthy DVT ppx: ALPS Code:Full code Problem List: 1. Fall at home 2. Gait instability Pain Ratin Pain Location: NA Pain Goal: Remain pain free Pain Plan: PRN Tomorrow's Labs & Rationales: CBC to monitor H&H BEP to monitor electrolytes
--- NOTE | 2017-08-07 10:42 | PN- Att Addend ---
Attending Addendum Attending Brief Note Patient laying in bed or just a complaint of knee pain had an x-ray that showed soft tissue swelling and a possible patellar fracture. Due to the fall that's very possible and will get an MRI of the joint and also get an orthopedic consult and also will have bilingual patient support caseworker discuss with the family future options like a long-term fci. Intake & Output 08/07 1600 08/07 0400 08/06 1600 08/06 0400 08/05 1600 08/05 0400 Intake Total 200 120 900 890 Output Total 500 450 400 Balance -300 120 450 490 Intake, Oral 200 120 900 890 Number 0 0 0 Bowel Movements Output, Urine 500 450 400 Patient 216 lb 170 lb Weight Weight Reported by Patient Estimated Measurement Method Current Medications Sig/Miladis Start time Last Medication Dose Route Stop Time Status Admin Acetaminophen 650 MG .STK-MED ONE 08/06 1852 DC PO 08/06 185 Acetaminophen 650 MG Q6P PRN 08/05 214 AC 08/06 PO 1855 Amlodipine Besylate 2.5 MG DAILY 08/06 899 AC 08/07 PO 0846 Aspirin Buffered 81 MG DAILY 08/06 09 AC 08/07 PO 0844 Atorvastatin Calcium 10 MG 1700 08/06 1700 AC 08/06 PO 1749 Celecoxib 200 MG BID 08/06 2099 DC 08/07 PO 08/07 0901 0844 Docusate Sodium 100 MG DAILY NEEDED PRN 08/06 614 AC PO Escitalopram Oxalate 20 MG DAILY 08/06 09 AC 08/07 PO 0845 Famotidine 20 MG DAILY 08/06 09 AC 08/07 PO 0846 Levetiracetam 500 MG BID 08/06 09 AC 08/07 PO 0845 Levothyroxine Sodium 0.125 MG DAILY AC 08/06 07 AC 08/07 PO 0601 Lisinopril 5 MG DAILY 08/06 09 AC 08/07 PO 0847 Melatonin 3 MG QPM 08/06 2099 AC 08/06 PO 214 Morphine Sulfate 1 MG ONCE ONE 08/06 2044 DC 08/06 IV 08/06 Multivitamins 1 TAB DAILY 08/06 899 AC 08/07 Therapeutic PO 0847 Tamsulosin HCl 0.8 MG DAILY 08/06 09 AC 08/07 PO 0844 Zolpidem Tartrate 5 MG QPM 08/06 2099 AC 08/06 PO 203 Laboratory Tests 08/07/17 0655: Levetiracetam Pending 08/06/17 0735: Anion Gap 10, Estimated GFR > 60, BUN/Creatinine Ratio 16.7, CBC w Diff NO MAN DIFF REQ, RBC 3.77 L, MCV 91.0, MCH 31.1 H, MCHC 34.2, RDW 13.0, MPV 7.5, Gran % 76.4 H, Lymphocytes % 12.9 L, Monocytes % 7.8, Eosinophils % 2.6, Basophils % 0.3, Absolute Granulocytes 4.8, Absolute Lymphocytes 0.8 L, Absolute Monocytes 0.5, Absolute Eosinophils 0.2, Absolute Basophils 0 08/05/17 1304: Urine Color YEL, Urine Clarity CLEAR, Urine pH 7.0, Ur Specific [place] 1.020, Urine Protein NEG, Urine Ketones NEG, Urine Nitrite NEG, Urine Bilirubin NEG, Urine Urobilinogen 1.0, Ur Leukocyte Esterase NEG, Ur Microscopic EXAM NOT REQUIRED, Urine Hemoglobin NEG, Urine Glucose NEG 08/05/17 0946: Anion Gap 6, Estimated GFR > 60, BUN/Creatinine Ratio 15.6, Glucose 89, Calcium 8.8, Total Bilirubin 1.2, AST 17, ALT 24, Alkaline Phosphatase 73, Total Protein 6.4, Albumin 3.4 L, Globulin 3.0, Albumin/Globulin Ratio 1.1, PT 26.6 H, INR 2.42 H, CBC w Diff NO MAN DIFF REQ, RBC 4.13 L, MCV 92.1, MCH 30.2, MCHC 32.8 L, RDW 13.2, MPV 7.1 L, Gran % 83.4 H, Lymphocytes % 9.6 L, Monocytes % 4.8, Eosinophils % 1.9, Basophils % 0.3, Absolute Granulocytes 5.3, Absolute Lymphocytes 0.6 L, Absolute Monocytes 0.3, Absolute Eosinophils 0.1, Absolute Basophils 0 Vital Signs Date Time Temp Pulse Resp B/P B/P Pulse O2 O2 Flow FiO2 Mean Ox Delivery Rate 08/07 0844 76 118/68 08/07 0600 97.9 67 18 118/76 97 Room Air 08/06 2223 97.6 74 18 112/80 93 Room Air 08/06 1413 98.5 80 20 142/70 96 Room Air
[2017-08-07 13:45] VITALS: BP 100/70
--- NOTE | 2017-08-07 16:53 | PN- Orthopedic ---
Surgical Brief Attending Note Brief Attending Note: History/Subjective: I was asked to come evaluate this 67-year-old male with an extensive past medical history for management of a potential left patella fracture. The patient apparently lost his balance and fell 2 days ago. He was unable to get up from the ground on his own. An ambulance was called and the patient was brought to the [facility] emergency room for evaluation. The patient was ultimately felt to be not safe to be discharged to go back to home. There was some concern about left lower extremity pain and weakness. The patient family does have baseline hemiparesis status post prior stroke. The patient does ordinarily use a hemiwalker most of the time to get around. At other times when trying to move heavier objects uses a wheelchair instead. X- rays of the patient's left hip and femur and knee were obtained. There was radiologist interpretation of some irregularity at the articular surface of the patella and a patellar fracture could therefore not be ruled out. Recommendations were made for a follow-up MRI to rule in or rule out a nondisplaced patella fracture. It appears that the MRI was not actually ordered until this afternoon and therefore has not yet been performed. The patient presently complains of mild left anterior knee pain. Pain is exacerbated with direct pressure to the knee as well as with knee motion. The patient's left lower extremity history is notable for left-sided hemiparesis as noted above status post prior stroke. He is also status post ORIF left proximal femur fracture with an intramedullary cephalo-medullary hip screw device in the past. He does also have significant bilateral lower extremity peripheral vascular disease. Objective: The patient is a somewhat guarded but overall pleasant and cooperative well-nourished and well-developed somewhat frail-appearing white male looking older than his reported age lying quietly and seemingly comfortably in bed. He is awake and alert and oriented 3. Speech is normal. Affect is appropriate. Visual inspection of the patient's lower extremities is notable for skin pigmentation changes consistent with chronic severe peripheral vascular disease. This involves the bilateral lower extremities symmetrically from the mid legs down to the feet. The left knee does show moderate diffuse swelling somewhat greater anteriorly. No other areas of swelling or ecchymosis or erythema identified. There is generalized mild left lower extremity muscular atrophy. The skin is intact and in good condition. There is an equivocal joint effusion on patella ballottement. Patellar grind test is equivocal at best. There is swelling appreciated on palpation of the anterior soft tissues about the knee extending around the medial and lateral aspects of the knee. This does not specifically localized to joint lines of any sort. Knee extension is full. The patient can perform a straight leg raise actively against gravity though he does appear to be somewhat weak. He does report mild anterior left knee pain with active straight leg raise against gravity. Maximal knee flexion to about 90 with complaints of anterior end range knee pain. The patella tracks well with knee flexion and extension. No crepitus felt with knee flexion and extension. No gross instability on stress testing of the knee ligaments. Motor function is grossly intact but there does appear to be generalized left lower externally weakness. Sensation to light touch is intact. DP and PT pulses 1+. Capillary refill in the toes is brisk. Imaging: Review of films of the patient's left hip, left femur, and left knee show the patient to be status post prior ORIF left proximal femur fracture with cephalo-medullary nail. The fracture has healed in acceptable position. The hardware remains well fixed in acceptable position. There is mild degenerative changes of the hip joint. The knee itself show some arthritic changes including chondrocalcinosis of the lateral meniscus. There does appear to be either irregularity of the articular surface of the patella or alternatively some spur formation at the patellofemoral articulation making it difficult to properly evaluate the articular surface of the patella. A fracture cannot be ruled out but by no means is clearly evident. No obvious bone destructive or bone productive process is otherwise identified. The bone quality is significantly osteopenic overall. The soft tissues are grossly unremarkable. Assessment: Left anterior knee pain with knee swelling, greatest anteriorly status post fall and articular surface irregularity on plain radiographs of the knee; rule out subtle nondisplaced stable patella fracture. Rule out pain simply secondary to sprain and contusion of the knee. Plan: I do still recommend an MRI of the knee as was suggested by the radiologist. This will allow us to definitively determine whether or not there is a stable nondisplaced patella fracture. We will follow up tomorrow once the results of the patient's left knee MRI are available for review in order to make additional treatment recommendations. If a fracture is not found on MRI the patient can be mobilized as tolerated out of bed with assistance with physical therapy. If a fracture of the patella is in fact found on MRI we will need to get him a knee brace locked in terminal extension to protect the knee and prevent buckling of the knee. Once he has a knee brace in place he will be allowed to weight-bear fully on the left lower extremity again with assistance with ambulation and physical therapy. In the meantime I do recommend that a knee immobilizer be placed temporarily until we can get an answer as to whether or not there is a patella fracture. Logistically it will be difficult to get the patient a knee brace during his hospitalization before transfer to a jail facility. We can [facility] to see if they can come out and fit the patient for a hinged knee brace locked in full extension. If this cannot be accomplished and timely fashion while the patient is in the hospital we will either need to make arrangements for this to take place at the jail facility or alternatively if the patient follows up in my office for the fracture we can get him into a knee brace in the office. I do agree with the assessments of the other consultants and medical staff involvement of the patient would best be served by a short-term jail facility stay after his acute hospitalization at [facility]. It does not seem as if all things considered that he would be safe to go back to home alone to take care of himself.
[2017-08-07 20:40] VITALS: BP 130/88
[2017-08-08 06:38] VITALS: BP 120/92
--- NOTE | 2017-08-08 07:59 | PN- Housestaff ---
Subjective Follow-up For: Fall Gait imbalance Subjective: The patient was seen and examined. Reports having brief episode of mild chest discomfort and left sided chest pain at the location he fell. He denies any headache, dizzines, lightheadedness, n/v/abd pain, urinary symptoms. VSS. Review of Systems Constitutional: Denies: chills, diaphoresis, fever, malaise, weakness, unexplained weight loss. Objective Last 24 Hrs of Vital Signs/I&O Vital Signs Date Time Temp Pulse Resp B/P B/P Pulse O2 O2 Flow FiO2 Mean Ox Delivery Rate 08/08 0638 97.8 59 20 120/92 93 Room Air 08/07 2040 98.0 60 18 130/88 95 Room Air 08/07 1802 Room Air 08/07 1749 Room Air 08/07 1345 98.0 64 20 100/70 96 Room Air 08/07 0844 76 118/68 Intake & Output 08/08 0800 08/08 0000 08/07 1600 Intake Total 250 250 800 Output Total 150 350 600 Balance 100 -100 200 Intake, IV 10 10 Intake, Oral 240 240 800 Number 0 Bowel Movements Output, Urine 150 350 600 Physical Exam General Appearance: Alert, Cooperative, No Acute Distress Other Physical Findings: HEENT Atraumatic, PERRLA, EOMI, Mucous Membr. moist/pink Neck Supple, No JVD Cardiovascular Regular Rate, Normal S1, Normal S2, No Murmurs Lungs Clear to Auscultation, Normal Air Movement Abdomen Normal Bowel Sounds, Soft, No Tenderness Neurological Sensation Intact, Cranial Nerves 3-12 NL, right hand resting tremor Extremities No Edema, Normal Pulses, LUE/LLE 1/5 motor strength, left knee swelling and tenderness w/o ecchymosis, BL skin discoloration Current Medications: Current Medications Sig/Miladis Start time Last Medication Dose Route Stop Time Status Admin Acetaminophen 650 MG Q6P PRN 08/05 2145 AC 08/08 PO 0548 Amlodipine Besylate 2.5 MG DAILY 08/06 09 AC 08/07 PO 0846 Aspirin Buffered 81 MG DAILY 08/06 0900 AC 08/07 PO 0844 Atorvastatin Calcium 10 MG 1700 08/06 1700 AC 08/07 PO 1802 Celecoxib 200 MG BID 08/06 2100 DC 08/07 PO 08/07 0901 0844 Docusate Sodium 100 MG DAILY NEEDED PRN 08/06 0615 AC PO Escitalopram Oxalate 20 MG DAILY 08/06 0900 AC 08/07 PO 0845 Famotidine 20 MG DAILY 08/06 09 AC 08/07 PO 0846 Levetiracetam 500 MG BID 08/06 899 AC 08/07 PO 2040 Levothyroxine Sodium 0.125 MG DAILY AC 08/06 0700 AC 08/08 PO 0533 Lisinopril 5 MG DAILY 08/06 09 AC 08/07 PO 0847 Melatonin 3 MG QPM 08/06 2100 AC 08/07 PO 204 Multivitamins 1 TAB DAILY 08/06 899 AC 08/07 Therapeutic PO 0847 Tamsulosin HCl 0.8 MG DAILY 08/06 09 AC 08/07 PO 0844 Zolpidem Tartrate 5 MG QPM 08/06 2100 AC 08/07 PO 2039 Assessment/Plan Assessment: This is a 67 year old male with a PMH significant for seizure disorder on Keppra , 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 Problem list: -Mechanical fall -History of seizures Plan: * Seizure precautions * Fall precautions * C/w current home meds; hold warfarin * Keppra level pending * Hold warfarin - no recent VTE reported * PT evaluation for gait instability * Cardio consult for futher evaluation of chest discomfort * Trop/EKG negative * MRI of the left knee noted; appreciate ortho input whether to continue aspirin now that there is a fx and large lipohemarthrosis; per ortho ok to c/w ASA, NWB, knee immobilizer * Neuro consult for input regarding antiplatelet therapy after CVA Diet: Heart healthy DVT ppx: ALPS Code:Full code Problem List: 1. Fall at home 2. Gait instability Pain Ratin Pain Location: left chest wall-resolved Pain Goal: Pain 4 or less Pain Plan: prn Tomorrow's Labs & Rationales: CBC to monitor H&H BEP/mg to monitor electrolytes
[2017-08-08 09:40] LABS: ABSOLUTE BASOPHIL COUNT 0 /CUMM (0.0-0.2); ABSOLUTE EOSINOPHIL COUNT 0.2 /CUMM (0.0-0.7); ABSOLUTE GRANULOCYTE CT 2.9 /CUMM (1.4-6.5); ABSOLUTE LYMPH COUNT 0.9 /CUMM (1.2-3.4); ABSOLUTE MONOCYTE COUNT 0.4 /CUMM (0.10-0.60); BASOPHIL % 0.5 % (0.0-2.0); EOSINOPHIL % 5.3 % (0-5); GRANULOCYTE % 64.6 % (42.2-75.2); HEMATOCRIT 33.1 % (42-52); MEAN CORPUSCULAR HGB 31.3 PG (27.0-31.0); MEAN CORPUSCULAR HGB CONC 34.4 G/DL (33.0-37.0); MEAN CORPUSCULAR VOLUME 90.8 FL (80.0-94.0); MEAN PLATELET VOLUME 7.3 FL (7.4-10.4); PLATELET COUNT 134 /CUMM (130-400); RBC DISTRIBUTION WIDTH 13.2 % (11.5-14.5); RED BLOOD CELL CT 3.64 /CUMM (4.70-6.10); WHITE BLOOD CELL COUNT 4.4 /CUMM (4.8-10.8)
--- NOTE | 2017-08-08 10:27 | PN- Att Addend ---
Attending Addendum Attending Brief Note No new complaints, vital signs are stable no fever abnormal changes on physical patient discomfort MRI of the knee today and after that would have the orthopedic input. As soon as all this is done will start disposition plans for him to go to short-term rehabilitation to start. Intake & Output 08/08 1600 08/08 0400 08/07 1600 08/07 0400 08/06 1600 08/06 0400 Intake Total 392 943 9369 120 900 890 Output Total 671 516 0788 450 400 Balance 100 -100 -100 120 450 490 Intake, IV 10 10 Intake, Oral 590 628 9650 120 900 890 Number 0 0 0 0 Bowel Movements Output, Urine 458 337 1699 450 400 Patient 216 lb Weight Weight Reported by Patient Measurement Method Current Medications Sig/Miladis Start time Last Medication Dose Route Stop Time Status Admin Acetaminophen 650 MG Q6P PRN 08/05 2145 AC 08/08 PO 0548 Amlodipine Besylate 2.5 MG DAILY 08/06 899 AC 08/08 PO 0942 Aspirin Buffered 81 MG DAILY 08/06 899 AC 08/08 PO 0939 Atorvastatin Calcium 10 MG 1700 08/06 1700 AC 08/07 PO 1802 Docusate Sodium 100 MG DAILY NEEDED PRN 08/06 0615 AC PO Escitalopram Oxalate 20 MG DAILY 08/06 899 AC 08/08 PO 0941 Famotidine 20 MG DAILY 08/06 899 AC 08/08 PO 0941 Levetiracetam 500 MG BID 08/06 899 AC 08/08 PO 0940 Levothyroxine Sodium 0.125 MG DAILY AC 08/06 07 AC 08/08 PO 0533 Lisinopril 5 MG DAILY 08/06 899 AC 08/08 PO 0941 Melatonin 3 MG QPM 08/06 2099 AC 08/07 PO 2040 Multivitamins 1 TAB DAILY 08/06 899 AC 08/08 Therapeutic PO 0940 Tamsulosin HCl 0.8 MG DAILY 08/06 899 AC 08/08 PO 0939 Zolpidem Tartrate 5 MG QPM 08/06 2099 AC 08/07 PO 2040 Laboratory Tests 08/08/17 0855: Troponin I < 0.01 08/08/17 0800: Anion Gap 10, Estimated GFR > 60, BUN/Creatinine Ratio 17.5, Magnesium 1.8, CBC w Diff NO MAN DIFF REQ, RBC 3.64 L, MCV 90.8, MCH 31.3 H, MCHC 34.4, RDW 13.2, MPV 7.3 L, Gran % 64.6, Lymphocytes % 21.0, Monocytes % 8.6, Eosinophils % 5.3 H, Basophils % 0.5, Absolute Granulocytes 2.9, Absolute Lymphocytes 0.9 L, Absolute Monocytes 0.4, Absolute Eosinophils 0.2, Absolute Basophils 0 08/07/17 0655: Levetiracetam Pending 08/06/17 0735: Anion Gap 10, Estimated GFR > 60, BUN/Creatinine Ratio 16.7, CBC w Diff NO MAN DIFF REQ, RBC 3.77 L, MCV 91.0, MCH 31.1 H, MCHC 34.2, RDW 13.0, MPV 7.5, Gran % 76.4 H, Lymphocytes % 12.9 L, Monocytes % 7.8, Eosinophils % 2.6, Basophils % 0.3, Absolute Granulocytes 4.8, Absolute Lymphocytes 0.8 L, Absolute Monocytes 0.5, Absolute Eosinophils 0.2, Absolute Basophils 0 08/05/17 1304: Urine Color YEL, Urine Clarity CLEAR, Urine pH 7.0, Ur Specific [place] 1.020, Urine Protein NEG, Urine Ketones NEG, Urine Nitrite NEG, Urine Bilirubin NEG, Urine Urobilinogen 1.0, Ur Leukocyte Esterase NEG, Ur Microscopic EXAM NOT REQUIRED, Urine Hemoglobin NEG, Urine Glucose NEG Vital Signs Date Time Temp Pulse Resp B/P B/P Pulse O2 O2 Flow FiO2 Mean Ox Delivery Rate 08/08 0942 68 130/84 08/08 0941 68 130/84 08/08 0939 68 130/84 08/08 0638 97.8 59 20 120/92 93 Room Air 08/07 2040 98.0 60 18 130/88 95 Room Air 08/07 1802 Room Air 08/07 1749 Room Air 08/07 1345 98.0 64 20 100/70 96 Room Air
--- NOTE | 2017-08-08 15:30 | MRI REPORT ---
EXAMINATION: MR KNEE WITHOUT CONTRAST, LEFT CLINICAL INFORMATION: Status post fall. Question patellar fracture. COMPARISON: X-ray 08/06/2017 TECHNIQUE: MRI of the knee without contrast is performed using routine sequences. FINDINGS: MENISCI: Medial Meniscus: Intact. Lateral Meniscus: Tear in the anterior horn, which involves the undersurface, and also extends to the superior surface. Inner margin fraying in the body. LIGAMENTS: Cruciate: Mucoid degeneration ACL. PCL is intact. Collateral: Intact. EXTENSOR MECHANISM: Intact. ARTICULAR CARTILAGE/BONE: Patellofemoral Compartment: Foci of [id number] cartilage thinning and irregularity in the medial patellar facet, with subchondral edema inferiorly. Focus of high-grade cartilage loss in the central trochlea. Cartilage thinning otherwise in the trochlea. No MRI evidence of discrete fracture in the patella. Medial Compartment: [id number] cartilage thinning and irregularity. Lateral Compartment: Intra-articular fracture of the lateral tibial plateau. The fracture plane is U-shaped, with intra-articular extension. Associated marrow edema. No significant displacement is seen. There are areas of cartilage thinning, [id number] in nature. Marginal osteophytes. There is a patchy edema in the subchondral lateral femoral condyle, may be degenerative in nature or represent contusion. JOINT FLUID AND BURSAE: Large lipohemarthrosis. No significant Hodge's cyst. Subcutaneous edema. IMPRESSION: 1. Intra-articular undisplaced fracture of the lateral tibial plateau. Associated marrow edema. Large lipohemarthrosis. 2. Tear of the anterior horn, lateral meniscus. Inner margin fraying in the body. 3. Mucoid degeneration ACL. 4. Moderate patellofemoral and medial compartment arthritis. 5. Moderate lateral compartment arthritis. Subchondral edema in the lateral femoral condyle, may be degenerative, or represent sequela of contusion.
[2017-08-08 15:35] VITALS: BP 130/80
--- NOTE | 2017-08-08 20:29 | PN- Orthopedic ---
Surgical Brief Attending Note Brief Attending Note: The patient's symptoms and clinical findings are essentially the same as yesterday. He did finally undergo the MRI of his left knee today. The MRI showed degenerative changes of the knee as well as some tearing of menisci but most importantly did also show presence of a nondisplaced lateral tibial plateau fracture. Assessment: Left knee pain and swelling and joint effusion secondary to a nondisplaced lateral tibial plateau fracture. Plan: Recommendations are made for conservative management of this injury for a variety of reasons including arthrosis already present in the knee, relatively low demand lifestyle, presence of left-sided hemiparesis, and nondisplaced nature of the fracture. I do recommend immobilization of the knee. For now in the hospital this should be with a knee immobilizer. I do believe that the patient will be better managed with a hinged knee brace that will initially be locked in extension and eventually unlocked when appropriate to begin regaining knee motion. Logistically, I am not sure if we will be able to get the patient a brace while he is in the hospital so for now we should go with a knee immobilizer and my office will try to make arrangements for the patient to be fitted and receive a variably hinged knee brace. With respect to weightbearing, I do recommend nonweightbearing weightbearing restrictions for the left lower extremity until further notice. I did indicate to the patient that I do anticipate that we will need to restrict weightbearing on the left lower extremity for about 6 weeks in order to allow time for fracture healing at his lateral tibial plateau fracture site. The patient should be mobilized out of bed when possible. Physical therapy should be consulted and work with the patient though I do anticipate that this will be difficult due to the need to restrict weight bearing on the left lower extremity along with baseline left- sided hemiparesis. I do believe that the patient would benefit following discharge from the [facility] acute setting to a longterm facility for nursing care and to help with gait training and mobilization of the patient. The patient should either follow-up with me in my office (be sent from the SNF) or at the very least good-quality mobile x-rays of the patient's left knee should be sent to my office for review in roughly 3 weeks.
[2017-08-08 21:44] VITALS: BP 118/70
[2017-08-09 06:20] VITALS: BP 122/76
--- NOTE | 2017-08-09 07:49 | PN- Housestaff ---
Subjective Follow-up For: Fall Gait imbalance Subjective: The patient was seen and examined. Offers no complaints. He denies any headache , dizzines, lightheadedness, CP, SOB, n/v/abd pain, urinary symptoms. Awaiting cardiology evaluation for episode of chest pain yesterday. VSS. Review of Systems Constitutional: Reports: no symptoms. Objective Last 24 Hrs of Vital Signs/I&O Vital Signs Date Time Temp Pulse Resp B/P B/P Pulse O2 O2 Flow FiO2 Mean Ox Delivery Rate 08/09 06 97.8 59 18 122/76 94 Room Air 08/08 2144 97.3 58 20 118/70 94 08/08 1535 98.2 61 20 130/80 94 08/08 0942 68 130/84 08/08 0941 68 130/84 08/08 0939 68 130/84 Intake & Output 08/09 1600 08/09 0800 08/09 0000 Intake Total 240 480 Output Total 200 475 Balance -200 -235 480 Intake, Oral 240 480 Number 0 Bowel Movements Output, Urine 200 475 Physical Exam General Appearance: Alert, Oriented X3, Cooperative, No Acute Distress Other Physical Findings: HEENT Atraumatic, PERRLA, EOMI, Mucous Membr. moist/pink Neck Supple, No JVD Cardiovascular Regular Rate, Normal S1, Normal S2, No Murmurs Lungs Clear to Auscultation, Normal Air Movement Abdomen Normal Bowel Sounds, Soft, No Tenderness Neurological Sensation Intact, Cranial Nerves 3-12 NL, right hand resting tremor Extremities No Edema, Normal Pulses, LUE/LLE 1/5 motor strength, left knee swelling and tenderness w/o ecchymosis wearnig knee immobilizer, BL skin discoloration Current Medications: Current Medications Sig/Miladis Start time Last Medication Dose Route Stop Time Status Admin Acetaminophen 650 MG .STK-MED ONE 08/08 2001 DC PO 08/08 2002 Acetaminophen 650 MG Q6P PRN 08/05 2145 AC 08/09 PO 0639 Amlodipine Besylate 2.5 MG DAILY 08/06 899 AC 08/08 PO 0942 Aspirin Buffered 81 MG DAILY 08/06 09 AC 08/08 PO 0939 Atorvastatin Calcium 10 MG 1700 08/06 1700 AC 08/08 PO 1751 Docusate Sodium 100 MG .STK-MED ONE 08/08 1244 DC PO 08/08 1245 Docusate Sodium 100 MG DAILY NEEDED PRN 08/06 0615 AC 08/08 PO 1248 Escitalopram Oxalate 20 MG DAILY 08/06 899 AC 08/08 PO 09 Famotidine 20 MG DAILY 08/06 899 AC 08/08 PO 09 Levetiracetam 500 MG BID 08/06 899 AC 08/08 PO 2003 Levothyroxine Sodium 0.125 MG DAILY AC 08/06 07 AC 08/09 PO 0639 Lisinopril 5 MG DAILY 08/06 899 AC 08/08 PO 09 Melatonin 3 MG QPM 08/06 2099 AC 08/08 PO 2003 Multivitamins 1 TAB DAILY 08/06 899 AC 08/08 Therapeutic PO 0940 Oxycodone/ 1 TAB ONCE ONE 08/08 1745 DC 08/08 Acetaminophen PO 08/08 1746 1752 Tamsulosin HCl 0.8 MG DAILY 08/06 899 AC 08/08 PO 938 Zolpidem Tartrate 5 MG QPM 08/06 2099 AC 08/08 PO 2003 Last 24 Hrs of Lab/Santosh Results Last 24 Hrs of Labs/Mics: Laboratory Tests 08/09/17 0729: Sodium Pending, Potassium Pending, Chloride Pending, Carbon Dioxide Pending, Anion Gap Pending, BUN Pending, Creatinine Pending, BUN/Creatinine Ratio Pending , Magnesium Pending, CBC w Diff Pending, WBC Pending, RBC Pending, Hgb Pending, Hct Pending, MCV Pending, MCH Pending, MCHC Pending, RDW Pending, Plt Count Pending, MPV Pending Assessment/Plan Assessment: This is a 67 year old male with a PMH significant for seizure disorder on Keppra , 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 Problem list: -Mechanical fall -History of seizures - Intra-articular undisplaced fracture of the lateral tibial plateau. Associated marrow edema. Large lipohemarthrosis Plan: * Seizure precautions * Fall precautions * C/w current home meds; hold warfarin * Keppra level pending * Hold warfarin - no recent VTE reported * PT evaluation for gait instability * Cardio consult for futher evaluation of chest discomfort * Trop/EKG negative * MRI of the left knee noted; per ortho ok to c/w ASA, NWB, knee immobilizer * PT * Ortho follow up as an outpatient * Neuro consult for input regarding antiplatelet therapy after CVA Diet: Heart healthy DVT ppx: ALPS Code:Full code Problem List: 1. Fall at home 2. Fall 3. Closed fracture of lateral portion of left tibial plateau Pain Ratin Pain Location: NA Pain Goal: Remain pain free Pain Plan: PRN Tomorrow's Labs & Rationales: CBC: H&H BEP to monitor electrolytes
[2017-08-09 09:42] LABS: ABSOLUTE BASOPHIL COUNT 0 /CUMM (0.0-0.2); ABSOLUTE EOSINOPHIL COUNT 0.2 /CUMM (0.0-0.7); ABSOLUTE GRANULOCYTE CT 2.3 /CUMM (1.4-6.5); ABSOLUTE MONOCYTE COUNT 0.3 /CUMM (0.10-0.60); BASOPHIL % 0.7 % (0.0-2.0); EOSINOPHIL % 6.2 % (0-5); GRANULOCYTE % 58.7 % (42.2-75.2); HEMATOCRIT 34.1 % (42-52); MEAN CORPUSCULAR HGB 31.7 PG (27.0-31.0); MEAN CORPUSCULAR HGB CONC 34.8 G/DL (33.0-37.0); MEAN CORPUSCULAR VOLUME 91.2 FL (80.0-94.0); MEAN PLATELET VOLUME 7.1 FL (7.4-10.4); PLATELET COUNT 147 /CUMM (130-400); RBC DISTRIBUTION WIDTH 12.9 % (11.5-14.5); RED BLOOD CELL CT 3.74 /CUMM (4.70-6.10); WHITE BLOOD CELL COUNT 3.9 /CUMM (4.8-10.8)
--- NOTE | 2017-08-09 11:18 | PN- Att Addend ---
Attending Addendum Attending Brief Note Patient in bed, now has an immobilizer on his affected knee after having the MRI and seen by orthopedics. Patient also had complained of some chest pain. His vital signs are stable no fever, no new changes on physical. Will have cardiology clearance and after that patient will go [facility] for [facility]- term rehabilitation again Intake & Output 08/09 1600 08/09 0400 08/08 1600 08/08 0400 08/07 1600 08/07 0400 Intake Total 240 480 070 333 5232 120 Output Total 775 715 565 2066 Balance -535 480 25 -100 -100 120 Intake, IV 10 10 Intake, Oral 240 480 487 577 7852 120 Number 0 0 0 0 Bowel Movements Output, Urine 775 057 285 5177 Current Medications Sig/Miladis Start time Last Medication Dose Route Stop Time Status Admin Acetaminophen 650 MG .STK-MED ONE 08/08 2001 DC PO 08/08 2002 Acetaminophen 650 MG Q6P PRN 08/05 2145 AC 08/09 PO 0639 Amlodipine Besylate 2.5 MG DAILY 08/06 899 AC 08/09 PO 0903 Aspirin Buffered 81 MG DAILY 08/06 899 AC 08/09 PO 0902 Atorvastatin Calcium 10 MG 1700 08/06 1700 AC 08/08 PO 1751 Docusate Sodium 100 MG .STK-MED ONE 08/08 1244 DC PO 08/08 1245 Docusate Sodium 100 MG DAILY NEEDED PRN 08/06 0615 AC 08/08 PO 1248 Escitalopram Oxalate 20 MG DAILY 08/06 899 AC 08/09 PO 0903 Famotidine 20 MG DAILY 08/06 899 AC 08/09 PO 0903 Levetiracetam 500 MG BID 08/06 899 AC 08/09 PO 0902 Levothyroxine Sodium 0.125 MG DAILY AC 08/06 07 AC 08/09 PO 0639 Lisinopril 5 MG DAILY 08/06 899 AC 08/09 PO 0903 Melatonin 3 MG QPM 08/06 2100 AC 08/08 PO 2004 Multivitamins 1 TAB DAILY 08/06 899 AC 08/09 Therapeutic PO 0903 Oxycodone/ 1 TAB ONCE ONE 08/08 1745 DC 08/08 Acetaminophen PO 08/08 1746 1752 Tamsulosin HCl 0.8 MG DAILY 08/06 899 AC 08/09 PO 0902 Zolpidem Tartrate 5 MG QPM 08/06 2100 AC 08/08 PO 2003 Laboratory Tests 08/09/17 0729: Anion Gap 7, Estimated GFR > 60, BUN/Creatinine Ratio 17.8, Magnesium 1.8, CBC w Diff NO MAN DIFF REQ, RBC 3.74 L, MCV 91.2, MCH 31.7 H, MCHC 34.8, RDW 12.9, MPV 7.1 L, Gran % 58.7, Lymphocytes % 25.7, Monocytes % 8.7, Eosinophils % 6.2 H, Basophils % 0.7, Absolute Granulocytes 2.3, Absolute Lymphocytes 1.0 L, Absolute Monocytes 0.3, Absolute Eosinophils 0.2, Absolute Basophils 0 08/08/17 0855: Troponin I < 0.01 08/08/17 0800: Anion Gap 10, Estimated GFR > 60, BUN/Creatinine Ratio 17.5, Magnesium 1.8, CBC w Diff NO MAN DIFF REQ, RBC 3.64 L, MCV 90.8, MCH 31.3 H, MCHC 34.4, RDW 13.2, MPV 7.3 L, Gran % 64.6, Lymphocytes % 21.0, Monocytes % 8.6, Eosinophils % 5.3 H, Basophils % 0.5, Absolute Granulocytes 2.9, Absolute Lymphocytes 0.9 L, Absolute Monocytes 0.4, Absolute Eosinophils 0.2, Absolute Basophils 0 08/07/17 0655: Levetiracetam Pending Vital Signs Date Time Temp Pulse Resp B/P B/P Pulse O2 O2 Flow FiO2 Mean Ox Delivery Rate 08/09 0903 97.8 59 18 122/76 08/09 0903 97.8 59 18 122/76 08/09 0902 97.8 59 18 122/76 08/09 0620 97.8 59 18 122/76 94 Room Air 08/08 2144 97.3 58 20 118/70 94 08/08 1535 98.2 61 20 130/80 94
[2017-08-09 14:28] VITALS: BP 130/60
--- NOTE | 2017-08-09 15:55 | Cons- Cardiology ---
General Information and HPI Consulting Request Date of Consult: 08/09/17 Requested By: Terri REEVES,Jonny Vogel Reason for Consult: Chest pain. Source of Information: patient, old records Exam Limitations: no limitations History of Present Illness: Mr. 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 He denies any loss of consciousness, oral trauma, or fecall/urinary incontinence and blames the fall on his left hemiparesis. He was admitted on warfarin anticoagulation, but this has been discontinued. It was felt that the risk-benefit ratio no longer favored anticoagulation given his frequent falls. Yesterday, 08/08/2017, while "resting" he experienced a severe ("10/10") episode of left lower chest/left upper abdominal quadrant "sharp" pain without radiation or associated symptoms that lasted approximately one half hour that spontaneously subsided. He states he gets similar discomfort on occasion and blames it on "residual pain " from his cholecystectomy. He does not typically get exertional chest discomfort. He denies any history of coronary, valvular, dysrhythmic/conduction disease, or cardiomyopathy. He also denies any shortness of breath, PND, orthopnea, lower extremity edema, dry cough, syncope/near-syncope, lightheadedness, dizziness, or claudication. He admits to rare episodes of palpitations. Allergies/Medications Allergies: Coded Allergies: Iodinated Contrast- Oral and IV Dye (UNKNOWN PER PT 08/05/17) Penicillins (UNKNOWN PER PT 08/05/17) bacitracin (PER PT EYE OINTMENT -DOES NOT REMEMBER REACTION 05/05/17) Home Med List: Amlodipine (Norvasc) 2.5 MG TABLET 1 TAB PO DAILY HEART (Reported) Escitalopram Oxalate (Lexapro) 20 MG TABLET 1 TAB PO DAILY DEPRESSION ( Reported) Famotidine 20 MG TABLET 1 TAB PO DAILY GI (Reported) Levetiracetam (Keppra) 500 MG TABLET 1 TAB PO BID SEIZURES (Reported) Levothyroxine Sodium 125 MCG TABLET 1 TAB PO DAILY AC THYROID (Reported) Linaclotide (Linzess) 290 MCG CAPSULE 1 CAP PO DAILY BOWEL (Reported) Lisinopril (Prinivil) 5 MG TABLET 1 TAB PO DAILY BP (Reported) Melatonin 3 MG TABLET 1 TAB PO QPM SUPPLEMENT (Reported) Multiple Vitamin (Multivitamins) 1 EACH TABLET 1 TAB PO DAILY SUPPLEMENT ( Reported) Sennosides (Senna) 8.6 MG TABLET 2 TAB PO BID GI (Reported) Simvastatin (Zocor*) 20 MG TABLET 1 TAB PO QPM CHOLESTEROL (Reported) Tamsulosin HCl (Flomax) 0.4 MG CAP.ER.24H 2 CAP PO DAILY PROSTATE (Reported) Warfarin Sodium (Coumadin) 7.5 MG TABLET 1 TAB PO 1700 BLOOD THINNER ( Reported) Zolpidem Tartrate 5 MG TABLET 1 TAB PO QPM SLEEP (Reported) Review of Systems Review of Systems: 14 point system review was obtained and was noncontributory, other than as above except for the fact that he wears glasses. Past History Travel History Traveled to [place] past 21 day No Medical History Blood Transfusion Hx: Yes Neurological: seizure, CVA-L SIDED PARLAYSIS EENT: NONE Cardiovascular: hypertension, hyperlipidemia, PVD, VSD Respiratory: NONE Gastrointestinal: NONE Hepatic: NONE Renal: NONE Musculoskeletal: NONE Psychiatric: NONE Endocrine: hypothyroidism Blood Disorders: NONE Cancer(s): NONE VP HR DIVERSITY/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 . MOTHER (DM, Breast Ca, Stroke). . Psychosocial History Where Do You Live? Home Services at Home: Home Health Aide, Nursing Smoking Status: Never Smoked ETOH Use: denies use Illicit Drug Use: denies illicit drug use Functional Ability Ambulation: walker Exam & Diagnostic Data Vital Signs and I&O Vital Signs Date Time Temp Pulse Resp B/P B/P Pulse O2 O2 Flow FiO2 Mean Ox Delivery Rate 08/09 1428 97.0 80 18 130/60 95 Room Air 08/09 1145 Room Air 08/09 0903 97.8 59 18 122/76 08/09 0903 97.8 59 18 122/76 08/09 0902 97.8 59 18 122/76 08/09 0620 97.8 59 18 122/76 94 Room Air 08/08 2144 97.3 58 20 118/70 94 08/08 1535 98.2 61 20 130/80 94 Intake & Output 08/09 1600 08/09 0800 08/09 0000 08/08 1600 08/08 0800 08/08 0000 Intake Total 800 240 480 400 250 250 Output Total 900 475 475 150 350 Balance -100 -235 480 -75 100 -100 Intake, IV 10 10 Intake, Oral 800 240 480 400 240 240 Number 0 0 Bowel Movements Output, Urine 900 475 475 150 350 Physical Exam: Well-developed, well-nourished male in no acute distress. Vital signs: See above. HEENT: Normocephalic, atraumatic, EOMI, slightly dry mucous membranes. Lungs: Clear to auscultation bilaterally. Heart: S1, S2 with no murmur, gallop, or rub appreciated. PMI fifth ICS at MCL. Abdomen: Soft, nontender, positive bowel sounds. Extremities: No edema. Labs/Santosh Results: Laboratory Tests 08/09 08/08 0729 0855 Chemistry Sodium (137 - 145 mmol/L) 143 Potassium (3.5 - 5.1 mmol/L) 4.2 Chloride (98 - 107 mmol/L) 104 Carbon Dioxide (22 - 30 mmol/L) 32 H Anion Gap (5 - 16) 7 BUN (9 - 20 mg/dL) 16 Creatinine (0.7 - 1.2 mg/dL) 0.9 Estimated GFR (>60 ml/min) > 60 BUN/Creatinine Ratio (7 - 25 %) 17.8 Magnesium (1.6 - 2.3 mg/dL) 1.8 Troponin I (<0.11 ng/ml) < 0.01 Hematology CBC w Diff NO MAN DIFF REQ WBC (4.8 - 10.8 /CUMM) 3.9 L RBC (4.70 - 6.10 /CUMM) 3.74 L Hgb (14.0 - 18.0 G/DL) 11.9 L Hct (42 - 52 %) 34.1 L MCV (80.0 - 94.0 FL) 91.2 MCH (27.0 - 31.0 PG) 31.7 H MCHC (33.0 - 37.0 G/DL) 34.8 RDW (11.5 - 14.5 %) 12.9 Plt Count (130 - 400 /CUMM) 147 MPV (7.4 - 10.4 FL) 7.1 L Gran % (42.2 - 75.2 %) 58.7 Lymphocytes % (20.5 - 51.1 %) 25.7 Monocytes % (1.7 - 9.3 %) 8.7 Eosinophils % (0 - 5 %) 6.2 H Basophils % (0.0 - 2.0 %) 0.7 Absolute Granulocytes (1.4 - 6.5 /CUMM) 2.3 Absolute Lymphocytes (1.2 - 3.4 /CUMM) 1.0 L Absolute Monocytes (0.10 - 0.60 /CUMM) 0.3 Absolute Eosinophils (0.0 - 0.7 /CUMM) 0.2 Absolute Basophils (0.0 - 0.2 /CUMM) 0 04/18 0800 Chemistry Sodium (137 - 145 mmol/L) 144 Potassium (3.5 - 5.1 mmol/L) 4.1 Chloride (98 - 107 mmol/L) 106 Carbon Dioxide (22 - 30 mmol/L) 28 Anion Gap (5 - 16) 10 BUN (9 - 20 mg/dL) 14 Creatinine (0.7 - 1.2 mg/dL) 0.8 Estimated GFR (>60 ml/min) > 60 BUN/Creatinine Ratio (7 - 25 %) 17.5 Magnesium (1.6 - 2.3 mg/dL) 1.8 Hematology CBC w Diff NO MAN DIFF REQ WBC (4.8 - 10.8 /CUMM) 4.4 L RBC (4.70 - 6.10 /CUMM) 3.64 L Hgb (14.0 - 18.0 G/DL) 11.4 L Hct (42 - 52 %) 33.1 L MCV (80.0 - 94.0 FL) 90.8 MCH (27.0 - 31.0 PG) 31.3 H MCHC (33.0 - 37.0 G/DL) 34.4 RDW (11.5 - 14.5 %) 13.2 Plt Count (130 - 400 /CUMM) 134 MPV (7.4 - 10.4 FL) 7.3 L Gran % (42.2 - 75.2 %) 64.6 Lymphocytes % (20.5 - 51.1 %) 21.0 Monocytes % (1.7 - 9.3 %) 8.6 Eosinophils % (0 - 5 %) 5.3 H Basophils % (0.0 - 2.0 %) 0.5 Absolute Granulocytes (1.4 - 6.5 /CUMM) 2.9 Absolute Lymphocytes (1.2 - 3.4 /CUMM) 0.9 L Absolute Monocytes (0.10 - 0.60 /CUMM) 0.4 Absolute Eosinophils (0.0 - 0.7 /CUMM) 0.2 Absolute Basophils (0.0 - 0.2 /CUMM) 0 Diagnostic Data EKG Results 08/08/2017: Sinus rhythm, first-degree AV block, and early precordial transition with baseline artifact. Other Results Head/cervical spine CT 08/05/2017: 1. No acute intracranial pathology. 2. No CT evidence of any acute fracture, no subluxation or dislocation or prespinal soft tissue hematoma present at the cervical spine. 3. No significant change in the head and cervical spine since the prior studies done on 02/28/2014. Left hip/femoral x-ray 08/05/2017: No acute hip or femur fracture is seen. Soft tissue swelling is seen at the level of the knee. Recommend dedicated knee radiographs for further evaluation. Assessment/Plan Assessment/Plan [id number] w/ hx of hypothyroidism, GERD, HTN, HLD, 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 He denies any LOC, oral trauma, or fecall/ urinary incontinence and blames the fall on his left hemiparesis. He was admitted on warfarin anticoagulation, but this has been discontinued. It was felt that the risk-benefit ratio no longer favored anticoagulation given his frequent falls. Yesterday, 08/08/2017, while "resting" he experienced a severe ("10/10") episode of L lower chest/left upper abdominal quadrant "sharp" pain w/o radiation or assoc Sx lasting ~1/2 hour that spontaneously subsided. He states he gets similar discomfort on occasion and blames it on "residual pain " from his cholecystectomy. He does not typically get exertional chest discomfort. We were able to elicit some discomfort with palpation to the area in question, but patient was not certain that this was similar to what he experienced yesterday. Recommendations: * Follow-up troponins and ECG. * Pharmacologic stress test in this elderly male with hypertension, dyslipidemia, etc., which can be done on an outpatient basis if the patient is pending discharge or inpatient if he will remain hospitalized. Naturally, a pharmacologic stress test with nuclear imaging is appropriate given his residual deficits from his stroke. * Continue with efforts for coronary artery disease risk reduction. * Echocardiogram to assess left ventricular systolic/diastolic function, degree of LVH, wall motion abnormalities, etc. This will also allow us to determine if his VSD closure device is functioning properly. * Replete magnesium and maintain at or above 2.0 mg/dl. * Check free T4, TSH, and glycosylated hemoglobin A1c. * DVT prophylaxis being addressed by the anticoagulation he is on for his previous paradoxical embolus. Consult Acknowledgment - Thank you for your consult request.
[2017-08-09 22:16] VITALS: BP 118/68
[2017-08-10 06:20] VITALS: BP 126/74
--- NOTE | 2017-08-10 08:04 | PN- Housestaff ---
Subjective Follow-up For: Mechanical fall/gait imbalance Intra-articular undisplaced fracture of the lateral tibial plateau Subjective: The patient was seen and examined. Resting comfortably Offers no complaints. He denies any headache, dizzines, lightheadedness, CP, SOB, n/v/abd pain, urinary symptoms. Underwent stress test today. VSS. Review of Systems Constitutional: Reports: no symptoms. Objective Last 24 Hrs of Vital Signs/I&O Vital Signs Date Time Temp Pulse Resp B/P B/P Pulse O2 O2 Flow FiO2 Mean Ox Delivery Rate 08/10 2232 97.8 60 18 120/80 93 Room Air 08/10 1510 98.5 65 20 120/75 98 Room Air 08/10 0828 126/70 08/10 0828 126/70 08/10 0828 126/70 08/10 0620 97.6 60 18 126/74 97 Room Air Intake & Output 08/10 1600 08/10 0800 08/10 0000 Intake Total 200 250 400 Output Total 300 225 Balance -100 250 175 Intake, Oral 200 250 400 Output, Urine 300 225 Patient 216 lb Weight Physical Exam General Appearance: Alert, Oriented X3, Cooperative, No Acute Distress Other Physical Findings: HEENT Atraumatic, PERRLA, EOMI, Mucous Membr. moist/pink Neck Supple, No JVD Cardiovascular Regular Rate, Normal S1, Normal S2, No Murmurs Lungs Clear to Auscultation, Normal Air Movement Abdomen Normal Bowel Sounds, Soft, No Tenderness Neurological Sensation Intact, Cranial Nerves 3-12 NL, right hand resting tremor Extremities No Edema, Normal Pulses, LUE/LLE 1/5 motor strength, left knee swelling and tenderness w/o ecchymosis wearnig knee immobilizer, BL skin discoloration Current Medications: Current Medications Sig/Miladis Start time Last Medication Dose Route Stop Time Status Admin Acetaminophen 650 MG Q6P PRN 08/05 2145 AC 08/09 PO 0639 Amlodipine Besylate 2.5 MG DAILY 08/06 09 AC 08/10 PO 0828 Aspirin Buffered 81 MG DAILY 08/06 09 AC 08/10 PO 0831 Atorvastatin Calcium 10 MG 1700 08/06 1700 AC 08/10 PO 1552 Bisacodyl 10 MG ONCE ONE 08/10 2114 DC 08/10 WA 08/10 Diphenhydramine HCl 25 MG Q6-PRN PRN 08/10 193 AC 08/10 PO 1936 Dipyridamole 55 MG ONE ONE 08/10 914 DC Dextrose/Water 29 ML IV 08/11 915 Dipyridamole 56 MG ONE ONE 08/10 829 DC Dextrose/Water 28.8 ML IV 08/10 0831 Docusate Sodium 100 MG DAILY NEEDED PRN 08/06 0615 AC 08/09 PO 1831 Escitalopram Oxalate 20 MG DAILY 08/06 09 AC 08/10 PO 0829 Famotidine 20 MG DAILY 08/06 09 AC 08/10 PO 0828 Hydrocodone Bitart/ 1 TAB ONCE ONE 08/10 08 DC 08/10 Acetaminophen PO 08/10 0831 0832 Levetiracetam 500 MG BID 08/06 899 AC 08/10 PO 211 Levothyroxine Sodium 0.125 MG DAILY AC 08/06 07 AC 08/10 PO 0624 Lisinopril 5 MG DAILY 08/06 09 AC 08/10 PO 0828 Melatonin 3 MG QPM 08/06 2100 AC 08/10 PO 211 Multivitamins 1 TAB DAILY 08/06 09 AC 08/10 Therapeutic PO 0828 Patient Medication 1 ED ONE ONE 08/10 1715 DC Teaching ED 08/10 1716 Polyethylene Glycol 17 GM DAILY PRN 08/10 08 AC 08/10 PO 1208 Senna/Docusate Sodium 1 TAB BID PRN 08/10 08 AC 08/10 PO 1208 Tamsulosin HCl 0.8 MG DAILY 08/06 09 AC 08/10 PO 0828 Zolpidem Tartrate 5 MG QPM 08/06 2100 AC 08/10 PO 211 Last 24 Hrs of Lab/Santosh Results Last 24 Hrs of Labs/Mics: Laboratory Tests 08/10/17 0646: Anion Gap 8, Estimated GFR > 60, BUN/Creatinine Ratio 14.4, CBC w Diff NO MAN DIFF REQ, RBC 3.94 L, MCV 91.3, MCH 30.9, MCHC 33.8, RDW 13.1, MPV 7.0 L, Gran % 73.4, Lymphocytes % 15.7 L, Monocytes % 6.3, Eosinophils % 4.4, Basophils % 0.2, Absolute Granulocytes 4.0, Absolute Lymphocytes 0.9 L, Absolute Monocytes 0.3, Absolute Eosinophils 0.2, Absolute Basophils 0 Assessment/Plan Assessment: This is a 67 year old male with a PMH significant for seizure disorder on Keppra , 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 Problem list: -Mechanical fall -History of seizures - Intra-articular undisplaced fracture of the lateral tibial plateau. Associated marrow edema. Large lipohemarthrosis Plan: * Seizure precautions * Fall precautions * C/w current home meds; hold warfarin * Keppra level pending * Hold warfarin - no recent VTE reported * PT for gait instability * Cardio consult appreciated, given results of stress test, chest pain is less likely of a cardiac origin. * Trop/EKG negative * MRI of the left knee noted; per ortho ok to c/w ASA, NWB, knee immobilizer * Ortho follow up as an outpatient Diet: Heart healthy DVT ppx: ALPS Code:Full code Problem List: 1. Fall at home 2. Closed fracture of lateral portion of left tibial plateau Pain Ratin Pain Location: Left knee Pain Goal: Pain 4 or less Pain Plan: PRN tylenol Tomorrow's Labs & Rationales: NA
[2017-08-10 08:21] LABS: ABSOLUTE BASOPHIL COUNT 0 /CUMM (0.0-0.2); ABSOLUTE EOSINOPHIL COUNT 0.2 /CUMM (0.0-0.7); ABSOLUTE LYMPH COUNT 0.9 /CUMM (1.2-3.4); ABSOLUTE MONOCYTE COUNT 0.3 /CUMM (0.10-0.60); BASOPHIL % 0.2 % (0.0-2.0); EOSINOPHIL % 4.4 % (0-5); GRANULOCYTE % 73.4 % (42.2-75.2); MEAN CORPUSCULAR HGB 30.9 PG (27.0-31.0); MEAN CORPUSCULAR HGB CONC 33.8 G/DL (33.0-37.0); MEAN CORPUSCULAR VOLUME 91.3 FL (80.0-94.0); PLATELET COUNT 154 /CUMM (130-400); RBC DISTRIBUTION WIDTH 13.1 % (11.5-14.5); RED BLOOD CELL CT 3.94 /CUMM (4.70-6.10); WHITE BLOOD CELL COUNT 5.4 /CUMM (4.8-10.8)
--- NOTE | 2017-08-10 11:10 | PN- Att Addend ---
Attending Addendum Attending Brief Note Patient was evaluated by cardiology and due to the complaint of chest pain is having a nuclear stress test at this time if that test is negative then he can go to short-term rehabilitation later on today continue treatment of the knee per orthopedics with the immobilizer and and get physical therapy at rehabilitation. Intake & Output 08/10 0400 Intake Total 515 249 3398 480 650 250 Output Total 912 195 9477 625 350 Balance -50 175 -335 480 25 -100 Intake, IV 10 10 Intake, Oral 585 374 8510 480 640 240 Number 0 0 Bowel Movements Output, Urine 066 701 7692 625 350 Laboratory Tests 08/10/17 0646: Anion Gap 8, Estimated GFR > 60, BUN/Creatinine Ratio 14.4, CBC w Diff NO MAN DIFF REQ, RBC 3.94 L, MCV 91.3, MCH 30.9, MCHC 33.8, RDW 13.1, MPV 7.0 L, Gran % 73.4, Lymphocytes % 15.7 L, Monocytes % 6.3, Eosinophils % 4.4, Basophils % 0.2, Absolute Granulocytes 4.0, Absolute Lymphocytes 0.9 L, Absolute Monocytes 0.3, Absolute Eosinophils 0.2, Absolute Basophils 0 08/09/17 2250: Troponin I < 0.01 08/09/17 1705: Troponin I < 0.01 08/09/17 0729: Anion Gap 7, Estimated GFR > 60, BUN/Creatinine Ratio 17.8, Hemoglobin A1c 5.2, Magnesium 1.8, CBC w Diff NO MAN DIFF REQ, RBC 3.74 L, MCV 91.2, MCH 31.7 H, MCHC 34.8, RDW 12.9, MPV 7.1 L, Gran % 58.7, Lymphocytes % 25.7, Monocytes % 8.7, Eosinophils % 6.2 H, Basophils % 0.7, Absolute Granulocytes 2.3, Absolute Lymphocytes 1.0 L, Absolute Monocytes 0.3, Absolute Eosinophils 0.2, Absolute Basophils 0 08/08/17 0855: Troponin I < 0.01, TSH 1.090, Thyroxine (T4) 6.9 08/08/17 0800: Anion Gap 10, Estimated GFR > 60, BUN/Creatinine Ratio 17.5, Magnesium 1.8, CBC w Diff NO MAN DIFF REQ, RBC 3.64 L, MCV 90.8, MCH 31.3 H, MCHC 34.4, RDW 13.2, MPV 7.3 L, Gran % 64.6, Lymphocytes % 21.0, Monocytes % 8.6, Eosinophils % 5.3 H, Basophils % 0.5, Absolute Granulocytes 2.9, Absolute Lymphocytes 0.9 L, Absolute Monocytes 0.4, Absolute Eosinophils 0.2, Absolute Basophils 0 Vital Signs Date Time Temp Pulse Resp B/P B/P Pulse O2 O2 Flow FiO2 Mean Ox Delivery Rate 08/10 0828 126/70 08/10 0828 126/70 08/10 0828 126/70 08/10 0620 97.6 60 18 126/74 97 Room Air 08/09 2216 98.3 60 18 118/68 94 Room Air 08/09 1428 97.0 80 18 130/60 95 Room Air 08/09 1145 Room Air
--- NOTE | 2017-08-10 13:01 | IV DIPYRIDAMOLE NUCLEAR STRESS ---
Clinical Diagnosis: chest pain Button Puncher: Kourtney Stone Date of Service: 08/10/17 IV DIPYRIDAMOLE INFUSED: 55 mg IV AMINOPHYLLINE INFUSED: 125 mg PATIENT WEIGHT: 216 lbs INTERPRETATION: The patient's baseline EKG revealed sinus rhythm, first degree AV block and early precordial transition at 57 BPM. Baseline B/P 128-84 mm Hg. The patient received 55 mg of dipyridamole infused intravenously over a 4 minute period. TC99M Myoview was injected after dipyridamole infusion. The patient complained of transient chest pain that promptly improved following the administration of IV aminophylline 125 mg 1 time. There were no EKG changes seen following pharmacologic infusion. Arrhythmias: one premature ventricular contraction was observed IMPRESSION: The test was supervised by the interpreting Linen Attendant, who was in attendance during the entire test. No EKG evidence of stress induced myocardial ischemia. See separately dictated Nuclear Report.
[2017-08-10 15:10] VITALS: BP 120/75
--- NOTE | 2017-08-10 15:39 | Discharge Summary ---
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 Vital signs on admission: Date Time Temp Pulse Resp B/P B/P Pulse O2 O2 Flow FiO2 Mean Ox Delivery Rate 08/05 2219 98.1 72 20 138/70 93 08/05 2105 98.5 83 16 130/77 95 Room Air 08/05 1859 98.5 86 18 126/84 99 Room Air 08/05 1635 98.1 70 18 126/78 97 Room Air 08/05 1102 97.6 66 18 130/84 98 Room Air 08/05 0908 96 08/05 0907 97.1 66 20 122/77 96 Room Air Physical exam at the time of admission:General Appearance Alert, Oriented X3, Cooperative, No Acute Distress HEENT Atraumatic, PERRLA, EOMI, Mucous Membr. moist/pink Neck Supple, No JVD Cardiovascular Regular Rate, Normal S1, Normal S2, No Murmurs Lungs Clear to Auscultation, Normal Air Movement Abdomen Normal Bowel Sounds, Soft, No Tenderness Neurological Sensation Intact, Cranial Nerves 3-12 NL, right hand resting tremor Extremities No Edema, Normal Pulses, LUE/LLE 1/5 motor strength, left knee swelling and tenderness, BL skin discoloration Pertinent lab and diagnostic data on admission: 08/05/17 1304: Urine Color YEL, Urine Clarity CLEAR, Urine pH 7.0, Ur Specific [place] 1.020, Urine Protein NEG, Urine Ketones NEG, Urine Nitrite NEG, Urine Bilirubin NEG, Urine Urobilinogen 1.0, Ur Leukocyte Esterase NEG, Ur Microscopic EXAM NOT REQUIRED, Urine Hemoglobin NEG, Urine Glucose NEG 08/05/17 0946: Anion Gap 6, Estimated GFR > 60, BUN/Creatinine Ratio 15.6, Glucose 89, Calcium 8.8, Total Bilirubin 1.2, AST 17, ALT 24, Alkaline Phosphatase 73, Total Protein 6.4, Albumin 3.4 L, Globulin 3.0, Albumin/Globulin Ratio 1.1, PT 26.6 H, INR 2.42 H, CBC w Diff NO MAN DIFF REQ, RBC 4.13 L, MCV 92.1, MCH 30.2, MCHC 32.8 L, RDW 13.2, MPV 7.1 L, Gran % 83.4 H, Lymphocytes % 9.6 L, Monocytes % 4.8, Eosinophils % 1.9, Basophils % 0.3, Absolute Granulocytes 5.3, Absolute Lymphocytes 0.6 L, Absolute Monocytes 0.3, Absolute Eosinophils 0.1, Absolute Basophils [address] CERV SPINE WO IV CONTRAST; CT HEAD WO IV CONTRAST IMPRESSION: 1. No acute intracranial pathology. 2. No CT evidence of any acute fracture, no subluxation or dislocation or prespinal soft tissue hematoma present at the cervical spine. 3. No significant change in the head and cervical spine since the prior studies done on 02/28/2014. XRY-FEMUR, LEFT 2 VIEWS; XRY-HIP 2-3 VIEWS, LEFT IMPRESSION: No acute hip or femur fracture is seen. Soft tissue swelling is seen at the level of the knee. Recommend dedicated knee radiographs for further evaluation. The following problems were addressed during the course of his hospital stay: #Mechanical fall/gait imbalance: Patient reported he was in the kitchen making breakfast using his hemiwalker for assistance. He then attempted to get into his wheelchair at which point he could not get around the leg rest and subsequently fell on his left side. He activated his life alert and waited on the floor for approximately 30 minutes before EMS arrival. He reports he has left-sided pain 10/10 in severity due to the fall. He usually uses a wheelchair only when carrying items. Head and cervical spine CT were negative for any acute pathology. Left hip and left femur x-rays did not reveal any fracture, soft tissue swelling was seen at the level of the knee which resulted in further evaluation. (See below) The patient was evaluated by admission team, given frequent falls and no recent history of DVTs, warfarin was stopped and he was maintained on aspirin. # Intra-articular undisplaced fracture of the lateral tibial plateau: Left femur x-ray revealed soft tissue swelling at the level of the knee, the patient also had left knee pain, however he reported that he never fell on his left knee. Left knee x-ray revealed prepatellar soft tissue swelling and large suprapatellar knee joint effusion and suspicion of the articular surface fracture. Orthopedic consult was placed and MRI of the knee was obtained. MRI of the knee revealed Intra-articular undisplaced fracture of the lateral tibial plateau, associated marrow edema, large lipohemarthrosis. Orthopedic recommended conservative management given arthrosis already present in the knee, relatively low demand lifestyle, presence of left-sided hemiparesis, and nondisplaced nature of the fracture. They recommended left knee immobilization Which was done by knee immobilizer during hospital stay; he will need hinged knee brace which would be arranged by orthopedic in their office. He needs restrict weightbearing on the left lower extremity for about 6 weeks in order to allow time for fracture healing at his lateral tibial plateau fracture site. They also recommended the patient be discharged to intermediate facility for nursing care and to help with gait training and mobilization of the patient. Per ortho, the patient should either follow-up with me their office (be sent from the SNF) or at the very least good-quality mobile x-rays of the patient's left knee should be sent to their office for review in roughly 3 weeks. Patient's pain was managed with when necessary Tylenol. #Episode of chest pain: The patient reported brief episode of chest pain on , troponin negative, ECG did not reveal any significant pathology. TSH/ Free T4 were wnl, Hb a1c: 5.2 Cardiology was consulted who recommended stress test. Per cardio evaluation, his chest pain was not of cardiac origin. Echocardiogram revealed: #History of DVT on warfarin: Warfarin was stopped during his hospital stay, as mentioned above. He was started on low-dose aspirin #History of seizure: Was on seizure precautions during his hospital stay. Maintained on FLUSH TESTER Keppra. #History of hypertension: Was maintained on amlodipine 2.5 mg daily and lisinopril 5 mg daily. #History of CVA with residual left-sided weakness: Maintained on low-dose aspirin. #History of hyperlipidemia: Was maintained on statin. #History of hypothyroidism: Was maintained on home dose of levothyroxine. #History of depression: Was maintained on his home dose of escitalopram #DVT prophylaxis: Mechanical Allergies: Coded Allergies: Iodinated Contrast- Oral and IV Dye (UNKNOWN PER PT 08/05/17) Penicillins (UNKNOWN PER PT 08/05/17) bacitracin (PER PT EYE OINTMENT -DOES NOT REMEMBER REACTION 05/05/17) Significant Procedures: EXAM TYPE: NUC - MYOCARDIAL PERFUSION IMAGING 08/10/2017 PERSANTINE STRESS AND RESTING SPECT MYOCARDIAL PERFUSION IMAGING STUDY WITH GATED SPECT IMAGES: CLINICAL INDICATION: Chest pain. PROCEDURE: Regional myocardial perfusion was assessed using a 1 day protocol. Stress images were obtained on 08/10/2017 following the intravenous administration of 22.2 mCi Tc 99m Myoview. Stress consisted of 55 mg Persantine given intravenously. Following the sestamibi injection, 125 mg aminophylline was given intravenously. Rest images were obtained 08/10/2017 following the intravenous administration of 39.4 mCi Technetium 99m Myoview. Single photon emission tomographic (SPECT) images were obtained. SPECT images were acquired in a 64 x 64 matrix of 64 projections over 180 degrees. These were reconstructed into standard short axis, horizontal and vertical long axis cardiac projections. FINDINGS: The post stress images demonstrate the left ventricular chamber to be normal in size. There is homogeneous distribution of activity in the left ventricular myocardium with no regions of abnormally decreased activity noted. The resting images also demonstrate homogeneous distribution of activity in the left ventricular myocardium, and are not significantly changed from the post stress images. The images were obtained using a gated SPECT technique, which permits visualization of wall motion and calculation of the left ventricular ejection fraction. No left ventricular wall motion abnormalities are noted on either the stress or resting study. The calculated left ventricular ejection fraction is 60% on the stress study. No previous study is available for comparison. IMPRESSION: Normal Persantine stress and resting myocardial perfusion study with normal left ventricular wall motion and ejection fraction. Pertinent Lab Results: Intake & Output 08/10 0800 08/10 0000 08/09 1600 08/09 0800 08/09 0000 Intake Total 200 250 400 800 240 480 Output Total 300 225 900 475 Balance -100 250 175 -100 -235 480 Intake, Oral 200 250 400 800 240 480 Number 0 Bowel Movements Output, Urine 300 225 900 475 Patient 216 lb Weight Left Knee MRI:08/08/17 IMPRESSION: 1. Intra-articular undisplaced fracture of the lateral tibial plateau. Associated marrow edema. Large lipohemarthrosis. 2. Tear of the anterior horn, lateral meniscus. Inner margin fraying in the body. 3. Mucoid degeneration ACL. 4. Moderate patellofemoral and medial compartment arthritis. 5. Moderate lateral compartment arthritis. Subchondral edema in the lateral femoral condyle, may be degenerative, or represent sequela of contusion. Left Knee Xray:08/05/2017 IMPRESSION: 1. Prepatellar soft tissue swelling and large suprapatellar knee joint effusion. 2. Irregularity of the articular surface of the patella seen on lateral view only. This is of uncertain etiology, but in the setting of trauma raises the suspicion of the articular surface fracture. Alternatively, findings may be related to degenerative change and or subtle loose body in the joint. Close clinical correlation is requested. If warranted, further assessment with MRI scan could be performed. 3. Mild degenerative changes in the patellofemoral and lateral femoral compartments. 4. Diffuse osteopenia. Disposition Summary Disposition Principal Diagnosis: Mechanical fall/gait imbalance Intra-articular undisplaced fracture of the lateral tibial plateau Additional Diagnosis: Episode of chest pain Discharge Disposition: SNF Discharge Instructions General Discharge Information Code Status: Full Code Patient's Diet: Heart Healthy Patient's Activity: Nonweightbearing left lower extremity, work with PT gait training and mobilization Follow-Up Instructions/Appts: -Please follow-up with your PCP, Dr. Frausto within a week of discharge. -Please follow-up with stable attendant, Dr. Portillo within 1-2 weeks of discharge. -You need to see orthopedic surgeon, Dr. Grimaldo in 3 weeks after your discharge from the hospital. If you are in rehabilitation at that time, arrangement should be made for you to be sent from SNF. Obtain x-ray left knee in 3 weeks before your visit Dr. Grimaldo. (prescription provided) -Needs Seizure precautions and Fall precautions Medications at Discharge Discharge Medications: Stop taking the following medications: Warfarin Sodium (Coumadin) 7.5 MG TABLET ORAL 5 PM Continue taking these medications: Tamsulosin HCl (Flomax) 0.4 MG CAP.ER.24H 2 Capsule ORAL DAILY Comments: Last Taken: 07/02/17 Time:9 am Simvastatin (Zocor*) 20 MG TABLET 1 Tablet ORAL Every night Comments: Last Taken:07-01-17 Time:1700 Amlodipine (Norvasc) 2.5 MG TABLET 1 Tablet ORAL DAILY Comments: Last Taken: 07/02/17 Time: 9 am Famotidine (Famotidine) 20 MG TABLET 1 Tablet ORAL DAILY Comments: Last Taken: 06/29/17 Time: 8:40 am Levothyroxine Sodium (Levothyroxine Sodium) 125 MCG TABLET 1 Tablet ORAL DAILY BEFORE BREAKFAST Comments: Last Taken: 07/02/17 Time: 6:00 am Lisinopril (Prinivil) 5 MG TABLET 1 Tablet ORAL DAILY Comments: Last Taken: 07/02/17 Time: 9 am Escitalopram Oxalate (Lexapro) 20 MG TABLET 1 Tablet ORAL DAILY Comments: Last Taken: 07/02/17 Time: 9 am Levetiracetam (Keppra) 500 MG TABLET 1 Tablet ORAL TWICE DAILY Comments: Last Taken:07/02/17 Time: 900 Linaclotide (Linzess) 290 MCG CAPSULE 1 Capsule ORAL DAILY Qty = 30 Comments: NOT GIVEN IN HOSPITAL Multiple Vitamin (Multivitamins) 1 EACH TABLET 1 Tablet ORAL DAILY Comments: Last Taken: 07/02/17 Time: 9 am Melatonin (Melatonin) 3 MG TABLET 1 Tablet ORAL Every night Zolpidem Tartrate (Zolpidem Tartrate) 5 MG TABLET 1 Tablet ORAL Every night Qty = 7 Sennosides (Senna) 8.6 MG TABLET 2 Tablet ORAL TWICE DAILY Start taking the following new medications: Aspirin (Ecotrin*) 81 MG TABLET.DR 1 Tablet ORAL DAILY Qty = 30 No Refills Acetaminophen (Tylenol Extra Strength) 500 MG TABLET 1 Tablet ORAL TWICE DAILY as needed for Knee pain/fracture Qty = 14 No Refills Copies To: Terrell Grimaldo MD
--- NOTE | 2017-08-10 15:42 | NUCLEAR MEDICINE REPORT ---
PERSANTINE STRESS AND RESTING SPECT MYOCARDIAL PERFUSION IMAGING STUDY WITH GATED SPECT IMAGES: CLINICAL INDICATION: Chest pain. PROCEDURE: Regional myocardial perfusion was assessed using a 1 day protocol. Stress images were obtained on 08/10/2017 following the intravenous administration of 22.2 mCi Tc 99m Myoview. Stress consisted of 55 mg Persantine given intravenously. Following the sestamibi injection, 125 mg aminophylline was given intravenously. Rest images were obtained 08/10/2017 following the intravenous administration of 39.4 mCi Technetium 99m Myoview. Single photon emission tomographic (SPECT) images were obtained. SPECT images were acquired in a 64 x 64 matrix of 64 projections over 180 degrees. These were reconstructed into standard short axis, horizontal and vertical long axis cardiac projections. FINDINGS: The post stress images demonstrate the left ventricular chamber to be normal in size. There is homogeneous distribution of activity in the left ventricular myocardium with no regions of abnormally decreased activity noted. The resting images also demonstrate homogeneous distribution of activity in the left ventricular myocardium, and are not significantly changed from the post stress images. The images were obtained using a gated SPECT technique, which permits visualization of wall motion and calculation of the left ventricular ejection fraction. No left ventricular wall motion abnormalities are noted on either the stress or resting study. The calculated left ventricular ejection fraction is 60% on the stress study. No previous study is available for comparison. IMPRESSION: Normal Persantine stress and resting myocardial perfusion study with normal left ventricular wall motion and ejection fraction.
[2017-08-10] MEDS ORDERED: ASPIRIN EC81 M1 PO (16:03)
--- NOTE | 2017-08-10 16:35 | Patient Discharge Instructions ---
Discharge Instructions General Discharge Information You were seen/treated for: Mechanical fall/gait imbalance Intra-articular undisplaced fracture of the lateral tibial plateau Special Instructions: -Please follow-up with your PCP, Dr. Frausto within a week of discharge. -Please follow-up with marine fuel dock attendant, Dr. Portillo within 1-2 weeks of discharge. -You need to see orthopedic surgeon, Dr. Grimaldo in 3 weeks after your discharge from the hospital. If you are in rehabilitation at that time, arrangement should be made for you to be sent from . Obtain x-ray left knee in 3 weeks before your visit Dr. Grimaldo. (prescription provided) -Needs Seizure precautions and Fall precautions - Please follow with Dr Frausto regarding the skin changes over your left leg Diet Continue normal diet: Yes Recommended Diet: Heart Healthy Activity Additional ACTIVITY Info: Nonweightbearing left lower extremity, work with PT gait training and mobilization Acute Coronary Syndrome Inclusion Criteria At DC or during hospital stay patient has or had the following: ACS DIAGNOSIS No Discharge Core Measures Meds if any: Prescribed or Continued at Discharge Meds if any: NOT Prescribed or Continued at Discharge Congestive Heart Failure Inclusion Criteria At DC or during hospital stay patient has or had the following: CHF DIAGNOSIS No Discharge Core Measures Meds if any: Prescribed or Continued at Discharge Meds if any: NOT Prescribed or Continued at Discharge Cerebrovascular accident Inclusion Criteria At DC or during hospital stay patient has or had the following: CVA/TIA Diagnosis No Discharge Core Measures Meds if any: Prescribed or Continued at Discharge Meds if any: NOT Prescribed or Continued at Discharge Venous thromboembolism Inclusion Criteria VTE Diagnosis No VTE Type NONE VTE Confirmed by (Test) NONE Discharge Core Measures - Per Current guidelines, there needs to be overlap - treatment for the first 5 days of Warfarin therapy. - If discharged on Warfarin prior to 5 days of - overlap therapy, the patient will need to be - assessed for post discharge needs including - *Post discharge parental anticoagulation - *Warfarin and/or parental anticoagulation education - *Follow up date to check INR post discharge At least 5 days overlap therapy as Inpatient No Meds if any: Prescribed or Continued at Discharge Note: Overlap Therapy is Warfarin and Anticoagulant Meds if any: NOT Prescribed or Continued at Discharge
[2017-08-10] MEDS ORDERED: TYLENOL EXTRA500 M2 PO (16:44)
--- NOTE | 2017-08-10 18:26 | ECHOCARDIOGRAM REPORT ---
NUBIA ELDRIDGE Age: 67 : 1950 Gender: M Exam Date: 08/09/2017 18:54 Exam Location: [place] Ht (in): 73 Wt (lb): 216 BSA: 2.26 BP: 130 / 60 Ordering Physician: Ally Concepcion MD Referring Physician: Edy Portillo MD Technologist: Carolee Pavon [facility] Room Number: [id number] Indications: CARDIOMYOPATHY Rhythm: Sinus Technical Quality: poor FINDINGS Left Ventricle Normal left ventricular size, wall thickness and systolic function with no obvious regional wall motion abnormalities. Diastolic filling pattern is consistent with impaired LV relaxation. The ejection fraction is visually estimated at 60%. Right Ventricle The right ventricle is normal in size and function. Right Atrium The right atrium is normal in size. Left Atrium The left atrium is mildly enlarged. The interatrial septum is intact. Mitral Valve The mitral valve is normal in structure and function. There is no mitral regurgitation. Aortic Valve Structurally normal aortic valve without significant sclerosis or stenosis. There is no aortic regurgitation. Tricuspid Valve The tricuspid valve is normal in structure and function. There is no tricuspid regurgitation. Pulmonic Valve Structurally normal pulmonic valve. There is no pulmonic regurgitation. Pericardium Normal pericardium without effusion. No pleural effusion. Great Vessels Normal aortic root dimension. The aortic arch and great vessels are now seen. CONCLUSIONS 1. Normal EF of 60% based on limited views with impaired LV relaxation. 2. Mild left atrial enlargement. Carter Bahena M.D. (Electronically Signed) Final Date: 10 August 2017 18:25 MEASUREMENTS (Male / Female) Normal Values 2D ECHO LV Diastolic Diameter PLAX 2.7 cm 4.2 - 5.9 / 3.9 - 5.3 cm LV Systolic Diameter PLAX 1.8 cm 2.1 - 4.0 cm LV Fractional Shortening PLAX 33.3 % 25 - 46 % LV Ejection Fraction 2D Teich 64.0 % IVS Diastolic Thickness 1.1 cm LVPW Diastolic Thickness 0.9 cm LV Relative Wall Thickness 0.7 RV Internal Dim ED PLAX 2.4 cm 1.9 - 3.8 cm LVOT Diameter 1.8 cm Aortic Root Diameter 3.4 cm LA Systolic Diameter LX 4.3 cm 3.0 - 4.0 / 2.7 - 3.8 cm LA Volume 49.0 cm 18 - 58 / 22 - 52 cm DOPPLER AV Peak Velocity 99.3 cm/s AV Peak Gradient 3.9 mmHg AV Mean Velocity 65.4 cm/s AV Mean Gradient 2.0 mmHg AV Velocity Time Integral 17.9 cm LVOT Peak Velocity 89.5 cm/s LVOT Peak Gradient 3.2 mmHg LVOT Mean Velocity 58.6 cm/s LVOT Mean Gradient 2.0 mmHg LVOT Velocity Time Integral 18.7 cm LVOT Stroke Volume 47.6 cm AV Area Cont Eq vti 2.7 cm AV Area Cont Eq pk 2.3 cm MV Peak Velocity 87.5 cm/s MV Peak Gradient 3.1 mmHg MV Mean Velocity 52.1 cm/s MV Mean Gradient 1.0 mmHg Mitral E Point Velocity 53.3 cm/s Mitral A Point Velocity 79.0 cm/s Mitral E to A Ratio 0.7 MV PHT Velocity 71.9 cm/s MV Deceleration [place] 241.0 cm/s MV Pressure Half Time 89.5 ms MV Area PHT 2.5 cm MV Deceleration Time 298.0 ms TR Peak Velocity 88.2 cm/s TR Peak Gradient 3.1 mmHg Right Atrial Pressure 5.0 mmHg Pulmonary Artery Systolic Pressu 8.1 mmHg Right Ventricular Systolic Press 8.1 mmHg LV E' Lateral Velocity 8.3 cm/s Mitral E to LV E' Lateral Ratio 6.4 LV E' Septal Velocity 6.6 cm/s Mitral E to LV E' Septal Ratio 8.0
--- NOTE | 2017-08-10 19:51 | PN- Cardiology ---
Subjective Subjective: No further chest discomfort. The stress portion of his pharmacologic stress test was performed this morning and the patient developed some chest discomfort but probably resolved after the administration of Aminophyllin. There were no electro-cardiographic changes observed. Objective Vital Signs and I&Os Vital Signs Date Time Temp Pulse Resp B/P B/P Pulse O2 O2 Flow FiO2 Mean Ox Delivery Rate 08/10 1510 98.5 65 20 120/75 98 Room Air 08/10 0828 126/70 08/10 0828 126/70 08/10 0828 126/70 08/10 0620 97.6 60 18 126/74 97 Room Air 08/09 2216 98.3 60 18 118/68 94 Room Air Intake & Output 08/10 1600 08/10 0800 08/10 0000 08/09 1600 08/09 0000 Intake Total 200 250 400 800 240 480 Output Total 300 225 900 475 Balance -100 250 175 -100 -235 480 Intake, Oral 200 250 400 800 240 480 Number 0 Bowel Movements Output, Urine 300 225 900 475 Patient 216 lb Weight Physical Exam: Well-developed, well-nourished male in no acute distress. Vital signs: See above. HEENT: Normocephalic, atraumatic, EOMI, slightly dry mucous membranes. Lungs: Clear to auscultation bilaterally. Heart: S1, S2 with no murmur, gallop, or rub appreciated. PMI fifth ICS at MCL. Abdomen: Soft, nontender, positive bowel sounds. Extremities: No edema. Current Medications: Current Medications Sig/Miladis Start time Last Medication Dose Route Stop Time Status Admin Acetaminophen 650 MG Q6P PRN 08/05 2145 AC 08/09 PO 0639 Amlodipine Besylate 2.5 MG DAILY 08/06 899 AC 08/10 PO 0828 Aspirin Buffered 81 MG DAILY 08/06 09 AC 08/10 PO 0831 Atorvastatin Calcium 10 MG 1700 08/06 1700 AC 08/10 PO 1552 Diphenhydramine HCl 25 MG Q6-PRN PRN 08/10 193 UNVr 08/10 PO 193 Dipyridamole 55 MG ONE ONE 08/10 0815 DC Dextrose/Water 29 ML IV 08/11 915 Dipyridamole 56 MG ONE 08/1030 DC Dextrose/Water 28.8 ML IV 08/10 0831 Docusate Sodium 100 MG DAILY NEEDED PRN 08/06 0615 AC 08/09 PO 1831 Escitalopram Oxalate 20 MG DAILY 08/06 0900 AC 08/10 PO 0829 Famotidine 20 MG DAILY 08/06 09 AC 08/10 PO 0828 Hydrocodone Bitart/ 1 TAB ONCE ONE 08/10 0830 DC 08/10 Acetaminophen PO 08/10 0831 0832 Levetiracetam 500 MG BID 08/06 09 AC 08/10 PO 0828 Levothyroxine Sodium 0.125 MG DAILY AC 08/06 0700 AC 08/10 PO 0624 Lisinopril 5 MG DAILY 08/06 0900 AC 08/10 PO 0828 Magnesium Sulfate 1 GM Q2H 08/09 1830 DC 08/09 Dextrose/Water 100 ML IV 08/09 2028 183 Melatonin 3 MG QPM 08/06 2100 AC 08/09 PO 2004 Multivitamins 1 TAB DAILY 08/06 09 AC 08/10 Therapeutic PO 0828 Patient Medication 1 ED ONE ONE 08/10 1715 DC Teaching ED 08/10 1716 Polyethylene Glycol 17 GM DAILY PRN 08/10 0830 AC 08/10 PO 1208 Senna/Docusate Sodium 1 TAB BID PRN 08/10 0830 AC 08/10 PO 1208 Tamsulosin HCl 0.8 MG DAILY 08/06 0900 AC 08/10 PO 0828 Zolpidem Tartrate 5 MG QPM 08/06 2100 AC 08/09 PO 2003 Results Last 48 Hrs of Labs/Mics: Laboratory Tests 08/10/17 0646: Anion Gap 8, Estimated GFR > 60, BUN/Creatinine Ratio 14.4, CBC w Diff NO MAN DIFF REQ, RBC 3.94 L, MCV 91.3, MCH 30.9, MCHC 33.8, RDW 13.1, MPV 7.0 L, Gran % 73.4, Lymphocytes % 15.7 L, Monocytes % 6.3, Eosinophils % 4.4, Basophils % 0.2, Absolute Granulocytes 4.0, Absolute Lymphocytes 0.9 L, Absolute Monocytes 0.3, Absolute Eosinophils 0.2, Absolute Basophils 0 08/09/17 2250: Troponin I < 0.01 08/09/17 1705: Troponin I < 0.01 08/09/17 0729: Anion Gap 7, Estimated GFR > 60, BUN/Creatinine Ratio 17.8, Hemoglobin A1c 5.2, Magnesium 1.8, CBC w Diff NO MAN DIFF REQ, RBC 3.74 L, MCV 91.2, MCH 31.7 H, MCHC 34.8, RDW 12.9, MPV 7.1 L, Gran % 58.7, Lymphocytes % 25.7, Monocytes % 8.7, Eosinophils % 6.2 H, Basophils % 0.7, Absolute Granulocytes 2.3, Absolute Lymphocytes 1.0 L, Absolute Monocytes 0.3, Absolute Eosinophils 0.2, Absolute Basophils 0 Assessment/Plan Assessment/Plan [id number] w/ hx of hypothyroidism, GERD, HTN, HLD, 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 He denies any LOC, oral trauma, or fecall/ urinary incontinence and blames the fall on his left hemiparesis. He was admitted on warfarin anticoagulation, but this has been discontinued. It was felt that the risk-benefit ratio no longer favored anticoagulation given his frequent falls. Yesterday, 08/08/2017, while "resting" he experienced a severe ("10/10") episode of L lower chest/left upper abdominal quadrant "sharp" pain w/o radiation or assoc Sx lasting ~1/2 hour that spontaneously subsided. He states he gets similar discomfort on occasion and blames it on "residual pain " from his cholecystectomy. He does not typically get exertional chest discomfort. We were able to elicit some discomfort with palpation to the area in question, but patient was not certain that this was similar to what he experienced yesterday. Suspect his discomforts on a musculoskeletal basis and will follow-up on the nuclear images from his stress test. If no evidence of ischemia Mr. Pagan is cleared for discharge from a cardiac standpoint. Continue telemetry? Not applicable
[2017-08-10 22:32] VITALS: BP 120/80
[2017-08-11 06:22] VITALS: BP 124/80
[2017-08-11 13:54] VITALS: BP 120/80
--- NOTE | 2017-08-11 15:28 | PN- Att Addend ---
Attending Addendum Attending Brief Note No new complaints Vital signs are stable no fever noted no new changes on physical and has an immobilizer on his knee had a chemical stress test was negative for ischemia and will start disposition plans for him to go to rehabilitation and to follow with the research and development manager. I will follow the patient had the care home see the discharge summary and W 10 and CMR Intake & Output 08/11 1600 08/11 0400 08/10 1600 08/10 0400 08/09 1600 08/09 0400 Intake Total 720 150 612 057 3818 480 Output Total 715 300 654 801 7573 Balance 5 -150 150 175 -335 480 Intake, Oral 720 150 250 001 1175 480 Number 0 1 0 Bowel Movements Output, Urine 715 300 [phone] Patient 216 lb Weight Current Medications Sig/Miladis Start time Last Medication Dose Route Stop Time Status Admin Acetaminophen 325 MG .STK-MED ONE 08/10 2004 DC PO 08/10 2005 Acetaminophen 650 MG Q6P PRN 08/05 2145 AC 08/09 PO 0639 Amlodipine Besylate 2.5 MG DAILY 08/06 899 AC 08/11 PO 0854 Aspirin Buffered 81 MG DAILY 08/06 899 AC 08/11 PO 0854 Atorvastatin Calcium 10 MG 1700 08/06 1700 AC 08/10 PO 1552 Bisacodyl 10 MG ONCE ONE 08/10 211 DC 08/10 VA 08/11 2115 211 Diphenhydramine HCl 25 MG Q6-PRN PRN 08/10 1930 AC 08/10 PO 1936 Docusate Sodium 100 MG DAILY NEEDED PRN 08/06 0615 AC 08/09 PO 1831 Escitalopram Oxalate 20 MG DAILY 08/06 899 AC 08/11 PO 0854 Famotidine 20 MG DAILY 08/06 09 AC 08/11 PO 0854 Levetiracetam 500 MG BID 08/06 899 AC 08/11 PO 0854 Levothyroxine Sodium 0.125 MG DAILY AC 08/06 07 AC 08/11 PO 0552 Lisinopril 5 MG DAILY 08/06 899 AC 08/11 PO 0855 Melatonin 3 MG QPM 08/06 2100 AC 08/10 PO 2117 Multivitamins 1 TAB DAILY 08/06 899 AC 08/11 Therapeutic PO 0854 Patient Medication 1 ED ONE ONE 08/10 1715 DC Teaching ED 08/10 1716 Polyethylene Glycol 17 GM DAILY PRN 08/10 0830 AC 08/10 PO 1208 Senna/Docusate Sodium 1 TAB BID PRN 08/10 0830 AC 08/10 PO 1208 Tamsulosin HCl 0.8 MG DAILY 08/06 0900 AC 08/11 PO 0853 Zolpidem Tartrate 5 MG QPM 08/06 2100 AC 08/10 PO 2117 Laboratory Tests 08/10/17 0646: Anion Gap 8, Estimated GFR > 60, BUN/Creatinine Ratio 14.4, CBC w Diff NO MAN DIFF REQ, RBC 3.94 L, MCV 91.3, MCH 30.9, MCHC 33.8, RDW 13.1, MPV 7.0 L, Gran % 73.4, Lymphocytes % 15.7 L, Monocytes % 6.3, Eosinophils % 4.4, Basophils % 0.2, Absolute Granulocytes 4.0, Absolute Lymphocytes 0.9 L, Absolute Monocytes 0.3, Absolute Eosinophils 0.2, Absolute Basophils 0 08/09/17 2250: Troponin I < 0.01 08/09/17 1705: Troponin I < 0.01 08/09/17 0729: Anion Gap 7, Estimated GFR > 60, BUN/Creatinine Ratio 17.8, Hemoglobin A1c 5.2, Magnesium 1.8, CBC w Diff NO MAN DIFF REQ, RBC 3.74 L, MCV 91.2, MCH 31.7 H, MCHC 34.8, RDW 12.9, MPV 7.1 L, Gran % 58.7, Lymphocytes % 25.7, Monocytes % 8.7, Eosinophils % 6.2 H, Basophils % 0.7, Absolute Granulocytes 2.3, Absolute Lymphocytes 1.0 L, Absolute Monocytes 0.3, Absolute Eosinophils 0.2, Absolute Basophils 0 Vital Signs Date Time Temp Pulse Resp B/P B/P Pulse O2 O2 Flow FiO2 Mean Ox Delivery Rate 08/11 1354 98.0 60 18 120/80 96 08/11 0855 62 124/68 08/11 0854 62 124/68 08/11 0853 62 12468 08/11 0800 Room Air 08/11 0622 98.0 54 18 124/80 92 Room Air 08/10 2232 97.8 60 18 120/80 93 Room Air
[2017-08-11 17:52] VITALS: BP 120/80
== END 2017-08-11 17:34 | DRG 563 ==
LOC: ERH 09:03 → ERHI 17:44 → 2NA 17:44 → ENRESERV 20:02 → ENTRNSPT 21:05 → EDTRNSPTSTS 21:06 → 2NA 21:18 → CMPTRNSPT 21:39 → 2NA 08-11 17:34
PROVIDERS: Emergency Medicine; Internal Medicine
DX: S82.145A Nondisplaced bicondylar fracture of left tibia, initial encounter for closed fracture (principal); I69.354 Hemiplegia and hemiparesis following cerebral infarction affecting left non-dominant side; G40.909 Epilepsy, unspecified, not intractable, without status epilepticus; I73.9 Peripheral vascular disease, unspecified; E03.9 Hypothyroidism, unspecified; R07.9 Chest pain, unspecified; F32.9 Major depressive disorder, single episode, unspecified; K21.9 Gastro-esophageal reflux disease without esophagitis; S83.282A Other tear of lateral meniscus, current injury, left knee, initial encounter; W01.0XXA Fall on same level from slipping, tripping and stumbling without subsequent striking against object, initial encounter; R26.89 Other abnormalities of gait and mobility; E78.5 Hyperlipidemia, unspecified; N40.0 Benign prostatic hyperplasia without lower urinary tract symptoms; Z91.81 History of falling; I10 Essential (primary) hypertension; Y92.000 Kitchen of unspecified non-institutional (private) residence as the place of occurrence of the external cause; Z90.49 Acquired absence of other specified parts of digestive tract; Z88.0 Allergy status to penicillin; Z91.041 Radiographic dye allergy status; Z86.718 Personal history of other venous thrombosis and embolism; Z79.01 Long term (current) use of anticoagulants; Z88.1 Allergy status to other antibiotic agents
CPT/HCPCS: 2NASP; 73721; 36415; 36592; 73502-LT; 73552; 73562-LT; 78452; 81003; 82436; 93005; 93010; 93016; 93017; 93306; 97110-GO; 97112-GO; 97162-GP; 97166-GO; 97530-GO; A9502; J1245

== ENCOUNTER 2017-11-01 19:19 | Inpatient (IN) | payer OTHER, MEDICARE ==
[~2017-11-01] VITALS: Ht 185.4 cm; Wt 101.3 kg
[~2017-11-01 19:19] MED LIST changes: +ASPIRIN EC81 M1 PO; +MELATONIN3 M4 PO; +ZOLPIDEM TARTRAT5 M1 PO
--- NOTE | 2017-11-01 19:32 | ED GI/GU/ABDOMINAL COMPLAINT ---
See Addendum History of Present Illness General Chief Complaint: General Adult Stated Complaint: L SIDE RIB PAIN + CONSTIPATION Source: patient Exam Limitations: no limitations Vital Signs & Intake/Output Vital Signs & Intake/Output Vital Signs Date Time Temp Pulse Resp B/P B/P Pulse O2 O2 Flow FiO2 Mean Ox Delivery Rate 11/02 926 98.1 56 20 120/70 96 Room Air 11/02 0723 98.0 55 20 124/78 98 Room Air 11/02 0447 98.0 68 20 118/86 97 Room Air 11/02 0011 97.2 62 20 122/68 99 Room Air 11/01 1927 97 Room Air 11/01 1922 97.8 64 18 113/79 96 Room Air ED Intake and Output 11/02 0000 11/01 1200 Intake Total Output Total Balance Patient 212 lb Weight Weight Reported by Patient Measurement Method Allergies Coded Allergies: Iodinated Contrast- Oral and IV Dye (UNKNOWN PER PT 08/05/17) Penicillins (UNKNOWN PER PT 08/05/17) bacitracin (PER PT EYE OINTMENT -DOES NOT REMEMBER REACTION 05/05/17) Reconcile Medications Acetaminophen (Tylenol Extra Strength) 500 MG TABLET 1 TAB PO BID PRN Knee pain/fracture Amlodipine (Norvasc) 2.5 MG TABLET 1 TAB PO DAILY HEART (Reported) Aspirin (Ecotrin*) 81 MG TABLET.DR 1 TAB PO DAILY Heart Escitalopram Oxalate (Lexapro) 20 MG TABLET 1 TAB PO DAILY DEPRESSION ( Reported) Famotidine 20 MG TABLET 1 TAB PO DAILY GI (Reported) Levetiracetam (Keppra) 500 MG TABLET 1 TAB PO BID SEIZURES (Reported) Levothyroxine Sodium 125 MCG TABLET 1 TAB PO DAILY AC THYROID (Reported) Linaclotide (Linzess) 290 MCG CAPSULE 1 CAP PO DAILY BOWEL (Reported) Lisinopril (Prinivil) 5 MG TABLET 1 TAB PO DAILY BP (Reported) Melatonin 3 MG TABLET 1 TAB PO QPM SUPPLEMENT (Reported) Multiple Vitamin (Multivitamins) 1 EACH TABLET 1 TAB PO DAILY SUPPLEMENT ( Reported) Sennosides (Senna) 8.6 MG TABLET 2 TAB PO BID GI (Reported) Simvastatin (Zocor*) 20 MG TABLET 1 TAB PO QPM CHOLESTEROL (Reported) Tamsulosin HCl (Flomax) 0.4 MG CAP.ER.24H 2 CAP PO DAILY PROSTATE (Reported) Zolpidem Tartrate 5 MG TABLET 1 TAB PO QPM SLEEP (Reported) Triage Note: PT BIBA FROM HOME C/O CONSTIPATION X4 DAYS WELL LEFT SIDED RIB PAIN X10 YEARS. PT STATES HE LIVES ALONE AT HOME AND HAS NOT HAD A BM IN 3X DAYS. PER EMS PT LIVES ALONE AND PT TOLD EMS THAT HIS BENCH PRECISION ASSEMBLER CAME IN TODAY AND STATED THAT PT CANNOT LIVE ALONE ANYMORE D/T IN PROPER CARE AND UNABLE TO GET AROUND AT HOME. BENCH PRECISION ASSEMBLER STATED THAT PT CALL 911 TO GO TO THE HOSPITAL FOR PLACEMENT ONCE PTS RESTORATION TECHNICIAN (MANAGER STRATEGIC) LEFT. PT ARRIVED A&0X3. VSS. Triage Nurses Notes Reviewed? yes Duration: constant Quality/Severity: mild Severity Numbers: 3 Radiation: no radiation HPI: Patient is a 67-year-old male with a past medical history of seizure disorder, CVA in 2007 with left-sided residual weakness, DVT on warfarin, hypertension, hyperlipidemia, PVD, BPH, hypothyroidism depression GERD who was recently admitted and discharged from the hospital in July for concerns of a fall and a tibial plateau fracture or patient currently receives home health health care aide in which the patient received a phone call today from the psychosocial rehabilitation counselor stating that once the nurse leave the residence that the psychosocial rehabilitation counselor advised patient to use his call button to have the ambulance picked him up TO BE presented to the emergency room for long-term placement due to the social workers observation the patient was unfit to care for himself at home. Patient complains of a chronic history of left lateral anterior rib pain and has not had a bowel movement in approximately 2 days Patient denies any recent falls or seizures. Denies any illness. (Judith REINA,Nilson) Past History Travel History Traveled to [place] past 21 day No Medical History Any Pertinent Medical History? see below for history Neurological: seizure, CVA-L SIDED PARLAYSIS EENT: NONE Cardiovascular: hypertension, hyperlipidemia, PVD, VSD Respiratory: NONE Gastrointestinal: NONE Hepatic: NONE Renal: NONE Musculoskeletal: NONE Psychiatric: NONE Endocrine: hypothyroidism Blood Disorders: NONE Cancer(s): NONE GROCERY CHECKER/Reproductive: NONE History of MRSA: No History of VRE: No History of CDIFF: No Surgical History Surgical History: L HIP FX REPAIR CHOLECYSTECTOMY Psychosocial History Who do you live with Other (see notes) Services at Home Home Health Aide, Nursing What is your primary language Tajik Tobacco Use: Never used Family History Family History, If Any: FATHER (PVD, Lung Cancer). . MOTHER (DM, Breast Ca, Stroke). . Hx Contributory? No (Nilson Womack) Review of Systems Review of Systems Constitutional: Reports: see HPI. EENTM: Reports: no symptoms. Respiratory: Reports: see HPI. Cardiovascular: Reports: see HPI. GI: Reports: see HPI. Genitourinary: Reports: no symptoms. Musculoskeletal: Reports: no symptoms. Skin: Reports: no symptoms. Neurological/Psychological: Reports: no symptoms. Hematologic/Endocrine: Reports: no symptoms. Immunologic/Allergic: Reports: no symptoms. All Other Systems: Reviewed and Negative (Nilson Womack) Physical Exam Physical Exam General Appearance: no apparent distress, comfortable Head: atraumatic Eyes: Bilateral: normal appearance, PERRL. Ears, Nose, Throat, Mouth: hearing grossly normal, moist mucous membrane Neck: normal inspection Respiratory: normal breath sounds, chest non-tender Cardiovascular: regular rate/rhythm Peripheral Pulses: 2+ radial (R) Gastrointestinal: soft, tenderness Neurologic/Psych: no motor/sensory deficits, awake, alert Skin: intact Core Measures ACS in differential dx? No Sepsis Present: No Sepsis Focused Exam Completed? No (Nilson Womack) Progress Differential Diagnosis: AAA, AMI, appendicitis, biliary colic, bowel obstruction , colon cancer, cholecystitis, diverticulitis, epididymitis, esophageal varices, gastritis, hepatitis, hernia, hemorrhoids, ischemic bowel, inflamm bowel dis, orchitis, pancreatitis, prostatitis, peptic ulcer, PUD/GERD, perforated viscous, pyelonephritis, SBO, testicular torsion, ureterolithiasis, urinary retention, urethritis, UTI/pyelo Plan of Care: Orders Procedure Date/time Status Heart Healthy Diet 11/02 B Active PT Evaluate & Treat 11/02 07 Active PARTIAL THROMBOPLASTIN TIME 11/01 1941 Complete PROTHROMBIN TIME 11/01 1941 Complete URINALYSIS 11/02 1939 Complete TROPONIN LEVEL 11/02 1939 Complete COMPREHENSIVE METABOLIC PANEL 11/02 1939 Complete CBC WITHOUT DIFFERENTIAL 11/02 1939 Complete EKG 11/02 1939 Active Laboratory Tests 11/01/172: Anion Gap 10, Estimated GFR > 60, BUN/Creatinine Ratio 15.5, Glucose 107 H, Calcium 8.9, Total Bilirubin 1.0, AST 18, ALT 28, Alkaline Phosphatase 62, Troponin I < 0.01, Total Protein 6.5, Albumin 3.6, Globulin 2.9, Albumin/ Globulin Ratio 1.2 11/01/172028: Urine Color YEL, Urine Clarity CLEAR, Urine pH 6.0, Ur Specific [place] 1.020, Urine Protein NEG, Urine Ketones NEG, Urine Nitrite NEG, Urine Bilirubin NEG, Urine Urobilinogen 1.0, Ur Leukocyte Esterase NEG, Ur Microscopic EXAM NOT REQUIRED, Urine Hemoglobin NEG, Urine Glucose NEG 11/01/172011: PT 13.3 H, INR 1.22 H, APTT 31, CBC w Diff NO MAN DIFF REQ, RBC 3.98 L, MCV 90.6, MCH 31.2 H, MCHC 34.4, RDW 13.4, MPV 7.0 L, Gran % 62.7, Lymphocytes % 25.1, Monocytes % 9.0, Eosinophils % 2.9, Basophils % 0.3, Absolute Granulocytes 3.2, Absolute Lymphocytes 1.3, Absolute Monocytes 0.5, Absolute Eosinophils 0.1, Absolute Basophils 0 On initial presentation patient is resting comfortably bedside CT scan was resulted showing no acute process, blood work and EKG were unremarkable discussed patient with case management Due to patient's discharge from short-term rehabilitation less than 30 days ago patient will be a holdover in the emergency room will receive physical therapy evaluation and if identified the patient's unfit to be returned back to his residence he he will be transferred to short-term rehabilitation. Discussed plan with patient was no questions Discussed handoff WITH DR FALK Diagnostic Imaging: Viewed by Me: CT Scan. Radiology Impression: no acute abnormality Initial ED EKG: normal p-waves, normal QRS complex, normal sinus rhythm, 58 BPM Prior EKG: unchanged Hand-Off Endorsed To: Familia Falk MD Endorsed Time: 99 Pending: consult Comments: PATIENT: DANIS ELDRIDGE PRESENT AGE: 67 PATIENT ACCOUNT NO: [id number] : 50 LOCATION: [facility] ORDERING PHYSICIAN: Nilson REINA SERVICE DATE: 11/01/17 EXAM TYPE: CAT - CT ABD & PELVIS W/O IV CONTRAS; CT CHEST WO IV CONTRAST EXAMINATION: CT CHEST WITHOUT IV CONTRAST CT ABDOMEN AND PELVIS WITHOUT IV CONTRAST CLINICAL INFORMATION: 67-year-old male with left lateral rib pain and abdominal pain. Constipation for 2 days. COMPARISON: Chest CT from 05/19/2009. Abdomen CT from 06/21/2017. TECHNIQUE: Noncontrast multidetector CT imaging examination of the chest, abdomen and pelvis was performed. Axial images are displayed at 0.65 mm and 5 mm slice thickness. Coronal and sagittal reformatted images were generated at the technologist's workstation and submitted for review. DLP: 1445 mGy-cm FINDINGS: CHEST - LUNGS and PLEURA: Trachea and central airways are widely patent and normal in caliber. Mild atelectasis in dependent aspect of each lung. Stable 0.2 x 0.4 cm pleural-based nodule of the superior segment of the right lower lobe, unchanged compared to 05/19/2009. No interval development of a suspicious pulmonary or pleural nodule. No pulmonary edema, consolidation or mass. No pneumothorax or pleural effusion. MEDIASTINUM: The heart size is normal. The left diaphragm is chronically elevated and there is chronic right-sided shift of the cardiomediastinal structures. No pericardial effusion. Minimal atherosclerosis of the aortic arch without aneurysm. Pulmonary arteries are normal in size. The esophagus has normal wall thickness. Thyroid gland is unremarkable. No mediastinal mass. LYMPHATICS: No pathologic sized lymph nodes. CHEST WALL/BONES: No acute findings in the degenerated spine. There is an old focus of heterotopic ossification located deep to the tip of the left scapula. No acute scapular injury. ABDOMEN AND PELVIS - HEPATOBILIARY: Liver has normal size and contour. Again noted are scattered hepatic cysts. Gallbladder appears to be surgically absent. No fluid in the gallbladder fossa. PANCREAS: No acute findings in the atrophied pancreas. No pancreatic ductal dilatation or peripancreatic edema. SPLEEN: Unremarkable. ADRENAL GLANDS: Unremarkable. KIDNEYS, URETERS, BLADDER: Mild bilateral perinephric edema, unchanged. No nephrolithiasis or hydroureteronephrosis. Urinary bladder is unremarkable. GI TRACT AND PERITONEUM: Bowel loops are normal in caliber. Appendix is normal. No excessive stool in the colon. There is no fecal impaction the rectum. No focal colonic wall thickening or pericolonic fat stranding. No bowel obstruction or acute inflammatory change. No ascites or pneumoperitoneum. ABDOMINAL WALL: Small fat-containing umbilical hernia. VASCULAR: Abdominal aorta is normal in caliber. The IVC filter is well-positioned below the level of the renal veins. LYMPH NODES: No pathologic sized lymph nodes within the abdomen or pelvis. Multiple bilateral inguinal lymph nodes are seen, largest on the right measuring 1 cm short axis dimension and largest on the left measuring 1.3 cm short axis dimension, which is larger than observed on 06/21/2017. PELVIC VISCERA: Prostate gland is unremarkable. No pelvic free fluid. OSSEOUS STRUCTURES: Chronic, mild loss of height of multiple lumbar vertebra. No acute fractures. Old, healed fractures of left pubic rami. Old, healed intertrochanteric fracture of the left femur. The visualized intramedullary nail and dynamic neck screw are in satisfactory position. IMPRESSION: 1. No evidence of acute pneumonia, pleural effusion or pneumothorax. No acute findings in the chest compared to 05/19/2009. No acute rib fractures are seen. 2. No acute findings in the abdomen or pelvis compared to 06/21/2017. 3. Left inguinal lymph nodes have slightly increased in size compared to 06/21/2017; this is of questionable significance. DICTATED BY: Laci Rascon MD DATE/TIME DICTATED:11/01/172024 ARCH CUSHION SKIVING MACHINE OPERATOR:SHIRA DATE/TIME TRANSCRIBED:11/01/172024 CONFIDENTIAL, DO NOT COPY WITHOUT APPROPRIATE AUTHORIZATION. <Electronically signed in Other Vendor System> SIGNED BY: Laci Rascon MD 11/01/172043 (Nilson Womack) Hand-Off Endorsed To: Thomas Huitron MD Endorsed Time: 0700 Pending: consult (case management, PT eval) (Harley REEVES,Familia) Comments: 11/02/2017 7:54:26 AM patient signed out to me by Dr. Falk at shift ticket dispenser changer. 11/02/2017 9:36:16 AM Danis has been evaluated by physical therapy and cleared for outpatient management. Patient has also been evaluated by case management, patient's home care will be enhanced. (Thomas Huitron MD) Departure Departure Condition: Stable Referrals: Vasile Frausto MD (PCP/Family) Departure Forms: Customer Survey General Discharge Information (Nilson Womack) PA/GOVERNMENT OPERATIONS CONSULTANT Co-Sign Statement Statement: ED Attending supervision documentation- x I saw and evaluated the patient. I have also reviewed all the pertinent lab results and diagnostic results. I agree with the findings and the plan of care as documented in the PA's/GOVERNMENT OPERATIONS CONSULTANT's documentation. [] I have reviewed the ED Record and agree with the PA's/GOVERNMENT OPERATIONS CONSULTANT's documentation. [] Additions or exceptions (if any) to the PAs/GOVERNMENT OPERATIONS CONSULTANT's note and plan are summarized below: [] (Harley REEVES,Familia) Departure Disposition: HOME OR SELF CARE Clinical Impression Primary Impression: Total self-care deficit Secondary Impressions: History of stroke Additional Instructions: Follow-up with Dr. Frausto today or Sunday. Return if any concerns or sudden worsening. Please note that there might be incidental findings in your evaluation that are unrelated to the current emergency department visit. Please notify your primary care doctor about this emergency department visit in order to obtain and review all of the testing performed so that these incidental findings can be monitored as needed. If you had an x-ray performed, please understand that some fractures or other findings may not be seen on the initial set of x-rays. If your symptoms persist you might need a repeat set of x-rays to check for such a fracture. If you had a laceration evaluated, please understand that foreign bodies such as glass or wood may not be visible to the naked eye or on plain x-rays. If the wound becomes red, swollen, increasingly more painful or if there is any drainage from the wound, please have it reevaluated by a physician for the possibility of a retained foreign body. If you're unable to follow up as outlined in the discharge instructions please return to the emergency department. Thank you for choosing the [facility] Emergency Department for your care. It was a pleasure to serve you today. Thomas Huitron M.D. [facility] (Elana REEVES,Thomas Salcido)
[2017-11-01 20:22] LABS: ABSOLUTE BASOPHIL COUNT 0 /CUMM (0.0-0.2); ABSOLUTE EOSINOPHIL COUNT 0.1 /CUMM (0.0-0.7); ABSOLUTE GRANULOCYTE CT 3.2 /CUMM (1.4-6.5); ABSOLUTE LYMPH COUNT 1.3 /CUMM (1.2-3.4); ABSOLUTE MONOCYTE COUNT 0.5 /CUMM (0.10-0.60); BASOPHIL % 0.3 % (0.0-2.0); EOSINOPHIL % 2.9 % (0-5); GRANULOCYTE % 62.7 % (42.2-75.2); HEMATOCRIT 36.1 % (42-52); MEAN CORPUSCULAR HGB 31.2 PG (27.0-31.0); MEAN CORPUSCULAR HGB CONC 34.4 G/DL (33.0-37.0); MEAN CORPUSCULAR VOLUME 90.6 FL (80.0-94.0); PLATELET COUNT 164 /CUMM (130-400); RBC DISTRIBUTION WIDTH 13.4 % (11.5-14.5); RED BLOOD CELL CT 3.98 /CUMM (4.70-6.10); WHITE BLOOD CELL COUNT 5.1 /CUMM (4.8-10.8)
--- NOTE | 2017-11-01 20:44 | CT SCAN REPORT ---
EXAMINATION: CT CHEST WITHOUT IV CONTRAST CT ABDOMEN AND PELVIS WITHOUT IV CONTRAST CLINICAL INFORMATION: 67-year-old male with left lateral rib pain and abdominal pain. Constipation for 2 days. COMPARISON: Chest CT from 05/19/2009. Abdomen CT from 06/21/2017. TECHNIQUE: Noncontrast multidetector CT imaging examination of the chest, abdomen and pelvis was performed. Axial images are displayed at 0.65 mm and 5 mm slice thickness. Coronal and sagittal reformatted images were generated at the technologist's workstation and submitted for review. DLP: 1445 mGy-cm FINDINGS: CHEST - LUNGS and PLEURA: Trachea and central airways are widely patent and normal in caliber. Mild atelectasis in dependent aspect of each lung. Stable 0.2 x 0.4 cm pleural-based nodule of the superior segment of the right lower lobe, unchanged compared to 05/19/2009. No interval development of a suspicious pulmonary or pleural nodule. No pulmonary edema, consolidation or mass. No pneumothorax or pleural effusion. MEDIASTINUM: The heart size is normal. The left diaphragm is chronically elevated and there is chronic right-sided shift of the cardiomediastinal structures. No pericardial effusion. Minimal atherosclerosis of the aortic arch without aneurysm. Pulmonary arteries are normal in size. The esophagus has normal wall thickness. Thyroid gland is unremarkable. No mediastinal mass. LYMPHATICS: No pathologic sized lymph nodes. CHEST WALL/BONES: No acute findings in the degenerated spine. There is an old focus of heterotopic ossification located deep to the tip of the left scapula. No acute scapular injury. ABDOMEN AND PELVIS - HEPATOBILIARY: Liver has normal size and contour. Again noted are scattered hepatic cysts. Gallbladder appears to be surgically absent. No fluid in the gallbladder fossa. PANCREAS: No acute findings in the atrophied pancreas. No pancreatic ductal dilatation or peripancreatic edema. SPLEEN: Unremarkable. ADRENAL GLANDS: Unremarkable. KIDNEYS, URETERS, BLADDER: Mild bilateral perinephric edema, unchanged. No nephrolithiasis or hydroureteronephrosis. Urinary bladder is unremarkable. GI TRACT AND PERITONEUM: Bowel loops are normal in caliber. Appendix is normal. No excessive stool in the colon. There is no fecal impaction the rectum. No focal colonic wall thickening or pericolonic fat stranding. No bowel obstruction or acute inflammatory change. No ascites or pneumoperitoneum. ABDOMINAL WALL: Small fat-containing umbilical hernia. VASCULAR: Abdominal aorta is normal in caliber. The IVC filter is well-positioned below the level of the renal veins. LYMPH NODES: No pathologic sized lymph nodes within the abdomen or pelvis. Multiple bilateral inguinal lymph nodes are seen, largest on the right measuring 1 cm short axis dimension and largest on the left measuring 1.3 cm short axis dimension, which is larger than observed on 06/21/2017. PELVIC VISCERA: Prostate gland is unremarkable. No pelvic free fluid. OSSEOUS STRUCTURES: Chronic, mild loss of height of multiple lumbar vertebra. No acute fractures. Old, healed fractures of left pubic rami. Old, healed intertrochanteric fracture of the left femur. The visualized intramedullary nail and dynamic neck screw are in satisfactory position. IMPRESSION: 1. No evidence of acute pneumonia, pleural effusion or pneumothorax. No acute findings in the chest compared to 05/19/2009. No acute rib fractures are seen. 2. No acute findings in the abdomen or pelvis compared to 06/21/2017. 3. Left inguinal lymph nodes have slightly increased in size compared to 06/21/2017; this is of questionable significance.
[2017-11-01 20:50] LABS: PT 13.3 SEC (9.4-12.5); PTT 31 SEC (25-37)
--- NOTE | 2017-11-02 20:04 | History & Physical ---
Britney Malone 11/02/172001: General Information and HPI MD Statement: I have seen and personally examined NUBIA PAGAN and documented this H&P. The patient is a 67 year old M who presented with a patient stated chief complaint of []. 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 He presents today after being told that his insurance had denies further home health aid. He states he was told by his social welfare clerk to call EMS and come to the ED. He reports constipation and full body pain for the past 4 days he states his last bowel movement was on Sunday of this week. He has tried taking MiraLAX and milk of magnesia with no relief of symptoms. He also reports weakness. He also complains of atypical chest pain that he associates with his constipation that is improved after a bowel movement. He states he normally ambulates with a walker, but this is limited. He states he had home health services 7 days a week for 9.5hours a day. He denies any shortness of breath, recent falls, fever , chills. Allergies/Medications Allergies: Coded Allergies: Iodinated Contrast- Oral and IV Dye (UNKNOWN PER PT 08/05/17) Penicillins (UNKNOWN PER PT 08/05/17) bacitracin (PER PT EYE OINTMENT -DOES NOT REMEMBER REACTION 05/05/17) Home Med list Acetaminophen (Tylenol Extra Strength) 500 MG TABLET 1 TAB PO BID PRN Knee pain/fracture Amlodipine (Norvasc) 2.5 MG TABLET 1 TAB PO DAILY HEART (Reported) Aspirin (Ecotrin*) 81 MG TABLET.DR 1 TAB PO DAILY Heart Escitalopram Oxalate (Lexapro) 20 MG TABLET 1 TAB PO DAILY DEPRESSION ( Reported) Famotidine 20 MG TABLET 1 TAB PO DAILY GI (Reported) Levetiracetam (Keppra) 500 MG TABLET 1 TAB PO BID SEIZURES (Reported) Levothyroxine Sodium 125 MCG TABLET 1 TAB PO DAILY AC THYROID (Reported) Linaclotide (Linzess) 290 MCG CAPSULE 1 CAP PO DAILY BOWEL (Reported) Lisinopril (Prinivil) 5 MG TABLET 1 TAB PO DAILY BP (Reported) Melatonin 3 MG TABLET 1 TAB PO QPM SUPPLEMENT (Reported) Multiple Vitamin (Multivitamins) 1 EACH TABLET 1 TAB PO DAILY SUPPLEMENT ( Reported) Sennosides (Senna) 8.6 MG TABLET 2 TAB PO BID GI (Reported) Simvastatin (Zocor*) 20 MG TABLET 1 TAB PO QPM CHOLESTEROL (Reported) Tamsulosin HCl (Flomax) 0.4 MG CAP.ER.24H 2 CAP PO DAILY PROSTATE (Reported) Zolpidem Tartrate 5 MG TABLET 1 TAB PO QPM SLEEP (Reported) Past History Travel History Traveled to [place] past 21 day No Medical History Neurological: seizure, CVA-L SIDED PARLAYSIS EENT: NONE Cardiovascular: hypertension, hyperlipidemia, PVD, VSD Respiratory: NONE Gastrointestinal: NONE Hepatic: NONE Renal: NONE Musculoskeletal: NONE Psychiatric: NONE Endocrine: hypothyroidism Blood Disorders: NONE Cancer(s): NONE DOCUMENT CONTROL ASSOCIATE/Reproductive: NONE History of MRSA: No History of VRE: No History of CDIFF: No Surgical History Surgical History: L HIP FX REPAIR CHOLECYSTECTOMY Past Family/Social History Family History Relations & Conditions if any FATHER (PVD, Lung Cancer). . MOTHER (DM, Breast Ca, Stroke). . Psychosocial History Services at Home: Home Health Aide, Nursing Smoking Status: Never Smoked ETOH Use: denies use Illicit Drug Use: denies illicit drug use Functional Ability Ambulation: walker Review of Systems Review of Systems Constitutional: Reports: no symptoms. EENTM: Reports: no symptoms. Cardiovascular: Reports: no symptoms. Respiratory: Reports: no symptoms. GI: Reports: bloating, constipation. Genitourinary: Reports: no symptoms. Musculoskeletal: Reports: no symptoms. Skin: Reports: no symptoms. Neurological/Psychological: Reports: no symptoms. Hematologic/Endocrine: Reports: no symptoms. Immunologic/Allergic: Reports: no symptoms. All Other Systems: Reviewed and Negative Exam & Diagnostic Data Last 24 Hrs of Vital Signs/I&O Vital Signs Date Time Temp Pulse Resp B/P B/P Pulse O2 O2 Flow FiO2 Mean Ox Delivery Rate 11/02 1934 61 18 155/82 98 Room Air 11/02 1748 52 18 134/78 95 Room Air 11/02 1504 97.5 79 18 148/78 94 Room Air Room Air 11/02 1500 Room Air 11/02 1203 98.1 58 18 122/60 98 Room Air 11/02 0927 98.1 56 20 120/70 96 Room Air 11/02 0723 98.0 55 20 124/78 98 Room Air 11/02 0447 98.0 68 20 118/86 97 Room Air 11/02 0011 97.2 62 20 122/68 99 Room Air Intake & Output 11/02 1600 11/02 0800 11/02 0000 Intake Total 240 Output Total 240 300 Balance -240 -60 Intake, Oral 240 Output, Urine 240 300 Patient 212 lb Weight Weight Reported by Patient Measurement Method Physical Exam General Appearance Alert, Oriented X3, Cooperative, No Acute Distress Skin venous stasis changes BLE Skin Temp/Moisture Exam: Warm/Dry HEENT Atraumatic, PERRLA Neck Supple Cardiovascular Regular Rate, Normal S1, Normal S2 Lungs Clear to Auscultation Abdomen Normal Bowel Sounds, No Tenderness, slightly distended Neurological weakness to LUE/LLE 2/2 CVA, resting tremor right hand Extremities No Edema Assessment/Plan Assessment: 67 year old male with PMH Sz, 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 He presents today after being told that his insurance had denies further home health aid. He states he was told by his social welfare clerk to call EMS and come to the ED. Patient is being admitted to general medicine service for management of the following: Problem List: 1. Unsafe to be at home without assistance 2. Constipation Admission Data: T97.8 P64 RR18 BP113/79 Sat 96%RA INR 1.2 WBC 5.1, Hbg 12.[address] Chest/abd/pelv: 1. No evidence of acute pneumonia, pleural effusion or pneumothorax. No acute findings in the chest compared to 05/19/2009. No acute rib fractures are seen. 2. No acute findings in the abdomen or pelvis compared to 06/21/2017. 3. Left inguinal lymph nodes have slightly increased in size compared to 06/21/2017; this is of questionable significance. #Unsafe home environment as he required daily assistance -Will have case management see patient in the morning #Constipation -Senna, Dulcolax suppository #Chronic medical problems -will continue home meds DVT Prophylaxis: lovenox/ALPS/ambulation with assistance As Ranked By This Provider Problem List: 1. Constipation Core Measures/Misc (01/07) Acute Coronary Syndrome ACS Diagnosis: No Congestive Heart Failure Congestive Heart Failure Diagnosis No Cerebrovascular Accident CVA/TIA Diagnosis: No VTE (View Protocol) VTE Risk Factors Age>40 No Mechanical VTE Prophylaxis d/t N/A MechProphylax Ordered No VTE Pharm Prophylaxis d/t NA PharmProphylax ordered Sepsis (View protocol) Sepsis Present: No If YES complete Sepsis Event Note If YES complete Sepsis Event Note Derick Le MD 11/02/17 2020: Core Measures/Misc (01/07) Sepsis (View protocol) If YES complete Sepsis Event Note If YES complete Sepsis Event Note Resident Review Statement Resident Statement: examined this patient, discussed with regulatory affairs internship, agreed with regulatory affairs internship, discussed with family, reviewed EMR data (avail), discussed with nursing , discussed with case mgmt, reviewed images, amended to note Other Findings: Mr. Pagan is a 67-year-old male with past medical history of CVA with left- sided paralysis, seizure, hypertension, hyperlipidemia, peripheral vascular disease, ventricular septal defect, and hypothyroidism who presents with constipation of 4 day duration. The patient's last bowel movement movement was Sunday. He has had issues with constipation in the past and has tried MiraLAX, treatments, and milk of magnesia. He usually goes every day but has not been able to go in the past 4 days. He has associated pain especially in his abdomen and chest. He normally has a home health aide that comes 7 days a week for about 9-1/2 hours per day but his insurance recently ran out. The social welfare clerk told him to call 911 to have an ambulance bring him to the hospital if his insurance did not renew it and so he did. Otherwise, he has no fever, chills, shortness breath, nausea, or vomiting. He never smoked, uses alcohol, or drugs. On presentation, vital signs were T 97.8, HR 64, RR 18, BP 113/79, saturating 96 % on room air.. General: Patient appears stated age, alert and orientedx3. HEENT: PERRL. No goiter. No palpable lymph nodes. Cardiovascular: Regular rate and rhythm, no murmurs, rubs, or gallops. Lungs: Clear to auscultation bilaterally. Abdomen: Normal bowel sounds. Mildly tender to palpation in all four quadrants. Stool masses palpated. Skin: No rashes. Neuro: CN II-XII intact without any focal deficits. Ext: No edema, pulses normal. Laboratories were significant for hemoglobin 12.4, glucose 107, INR 1.22. CT chest, abdomen, pelvis was negative.. He will be admitted to general medicine and treated for the following problems: 1. Constipation 2. Unsafe discharge #Constipation: Patient has not had a bowel movement in 4 days. -Continue home laxatives -Bisacodyl suppository -If he does not have a bowel movement tomorrow, consider Fleet enema #Unsafe discharge: Patient needs home health aide given that he has left-sided paralysis from a stroke. He does walk with a walker but not much. He lives alone. -Case management consult #Chronic medical problems -Continue home medications DVT prophylaxis with enoxaparin Heart healthy diet DNR/DNI Toro Bello MD 11/03/17 1535: Core Measures/Misc (01/07) Sepsis (View protocol) If YES complete Sepsis Event Note If YES complete Sepsis Event Note Attending MD Review Statement Attending Statement Attending MD Statement: examined this patient, reviewed EMR data (avail), reviewed images, amended to note Attending Assessment/Plan: Mr. Zee was interviewed and examined. His EMR was reviewed. His admission was discussed with Dr. Huitron of the emergency department on the evening of his admission. Problems: -Adult failure to thrive -Patient with multiple medical problems limiting his ability to do ADLs with recent discontinuation of necessary home health services -DVT subtherapeutic INR -L Hemiparesis status post CVA -Hypertension -Dyslipidemia -BPH -GERD -Hypothyroidism -Depression -Constipation Plan: -Admit general medicine -Case management to become involved -Bowel prep is necessary -Continue home maintenance medications -Physical therapy consultation
[2017-11-02 22:08] VITALS: BP 136/80
--- NOTE | 2017-11-03 06:45 | PN- Housestaff ---
See Addendum Subjective Follow-up For: constipation Complaints: constipation chest pain Subjective: Patient refused suppository last night because he wanted to sleep. He reports chest pain this morning that he stays feels like a pressure in the center of his chest for the past 6 months. This is unchanged from the past 6 months and seems to improve after bowel movements and worse with constipation. Denies SOB, fever , chills, n/v/d. Review of Systems Constitutional: Reports: see HPI. Objective Last 24 Hrs of Vital Signs/I&O Vital Signs Date Time Temp Pulse Resp B/P B/P Pulse O2 O2 Flow FiO2 Mean Ox Delivery Rate 11/02 2208 97.8 58 18 136/80 94 Room Air 11/02 1934 61 18 155/82 98 Room Air 11/02 1748 52 18 134/78 95 Room Air 11/02 1504 97.5 79 18 148/78 94 Room Air Room Air 11/02 1500 Room Air 11/02 1203 98.1 58 18 122/60 98 Room Air 11/02 0927 98.1 56 20 120/70 96 Room Air 11/02 0723 98.0 55 20 124/78 98 Room Air Intake & Output 11/03 0800 14 0000 11/02 1600 Intake Total 490 Output Total 250 240 Balance 240 -240 Intake, IV 10 Intake, Oral 480 Number 0 Bowel Movements Output, Urine 250 240 Patient 223 lb Weight Weight Bed scale Measurement Method Physical Exam General Appearance: Alert, Oriented X3, Cooperative, No Acute Distress Skin: No Rashes Skin Temp/Moisture Exam: Warm/Dry HEENT: Atraumatic, PERRLA Neck: Supple Cardiovascular: Regular Rate, Normal S1, Normal S2 Lungs: Clear to Auscultation Abdomen: Normal Bowel Sounds, Soft, No Tenderness, distended but still soft Extremities: No Edema, Normal Pulses Assessment/Plan Assessment: 67 year old male with PMH Sz, 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 He presents today after being told that his insurance had denies further home health aid. He states he was told by his rn social services to call EMS and come to the ED. Patient is being admitted to general medicine service for management of the following: Problem List: 1. Unsafe to be at home without assistance 2. Constipation 3. Atypical chest-chronic #Unsafe home environment as he required daily assistance -Will have case management see patient in the morning #Atypical chest pain-chronic at least 6 months -Negative trop on admission -EKG showed first degree AV block on admission -Lytes within normal limits on admission -Will repeat BEP; trop; and EKG for persistent symptoms of chest pressure. I have a low suspicion for cardiac origin however patient is not the best historian and states his mother did have a CABG. #Constipation -Senna, Dulcolax suppository -no bowel movement overnight however he refused suppository until this morning because he wanted to sleep #Chronic medical problems -will continue home meds DVT Prophylaxis: lovenox/ALPS/ambulation with assistance Problem List: 1. Constipation 2. Chest pain Pain Ratin Pain Location: center of chest Pain Goal: Pain 4 or less Pain Plan: see a/p Tomorrow's Labs & Rationales: bep;cbc
[2017-11-03 07:21] VITALS: BP 124/82
[2017-11-03 08:31] LABS: ABSOLUTE BASOPHIL COUNT 0 /CUMM (0.0-0.2); ABSOLUTE EOSINOPHIL COUNT 0.1 /CUMM (0.0-0.7); ABSOLUTE GRANULOCYTE CT 3.5 /CUMM (1.4-6.5); ABSOLUTE LYMPH COUNT 0.9 /CUMM (1.2-3.4); ABSOLUTE MONOCYTE COUNT 0.3 /CUMM (0.10-0.60); BASOPHIL % 0.3 % (0.0-2.0); EOSINOPHIL % 2.8 % (0-5); GRANULOCYTE % 71.6 % (42.2-75.2); HEMATOCRIT 38.3 % (42-52); MEAN CORPUSCULAR HGB 31.2 PG (27.0-31.0); MEAN CORPUSCULAR HGB CONC 34.1 G/DL (33.0-37.0); MEAN CORPUSCULAR VOLUME 91.6 FL (80.0-94.0); MEAN PLATELET VOLUME 7.1 FL (7.4-10.4); PLATELET COUNT 144 /CUMM (130-400); RED BLOOD CELL CT 4.18 /CUMM (4.70-6.10); WHITE BLOOD CELL COUNT 4.9 /CUMM (4.8-10.8)
[2017-11-03 14:28] VITALS: BP 110/84
[2017-11-03 22:11] VITALS: BP 118/60
[2017-11-04 06:32] VITALS: BP 150/96
--- NOTE | 2017-11-04 11:25 | PN- Housestaff ---
Subjective Follow-up For: unsafe to be at home w/o assistance Subjective: Patient seen and examined at bedside, no acute events overnight, afebrile. Patient is c/o constipation, states he had 1 BM yesterday, but felt like it was not normal for him and he was retaining. States he takes miralax at home as needed, and is requesting some. C/o abdominal pain, is normal for him with constipation. Review of Systems Constitutional: Denies: chills, diaphoresis, fever. Cardiovascular: Denies: chest pain, orthopena. Respiratory: Denies: cough, short of breath. Gastrointestinal: Reports: abdominal pain, constipation. Denies: diarrhea, changes in stool. Objective Last 24 Hrs of Vital Signs/I&O Vital Signs Date Time Temp Pulse Resp B/P B/P Pulse O2 O2 Flow FiO2 Mean Ox Delivery Rate 11/04 0911 140/100 11/04 0911 140/100 11/04 0910 140/100 11/04 0632 97.9 55 20 150/96 97 11/04 0000 Room Air 11/03 2211 97.7 55 17 118/60 95 Room Air 11/03 1600 Room Air 11/03 1428 98.5 63 18 110/84 95 Intake & Output 11/04 1600 11/04 0800 11/04 0000 Intake Total 480 250 Output Total 600 400 Balance -120 -150 Intake, IV 0 10 Intake, Oral 480 240 Number 0 Bowel Movements Output, Urine 600 400 Physical Exam General Appearance: Alert, Oriented X3, Cooperative Skin: No Rashes HEENT: Atraumatic, EOMI Cardiovascular: Regular Rate, Normal S1, Normal S2 Lungs: Clear to Auscultation, Normal Air Movement Abdomen: Normal Bowel Sounds, Soft, No Tenderness, Negative Rovsing, Rebound, Guarding Assessment/Plan Assessment: 67 year old male with PMH Sz, 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 He presents today after being told that his insurance had denies further home health aid. He states he was told by his social media senior associate to call EMS and come to the ED. Patient is being admitted to general medicine service for management of the following: Problem List: 1. Unsafe to be at home without assistance 2. Constipation 3. Atypical chest-chronic #Unsafe home environment as he required daily assistance -Will have case management see patient in the morning #Atypical chest pain-chronic at least 6 months -Negative trop on admission -EKG showed first degree AV block on admission -Lytes within normal limits on admission -Will repeat BEP; trop; and EKG for persistent symptoms of chest pressure. I have a low suspicion for cardiac origin however patient is not the best historian and states his mother did have a CABG. #Constipation -Senna, Dulcolax suppository -no bowel movement overnight however he refused suppository until this morning because he wanted to sleep - Add Miralax #Chronic medical problems -will continue home meds DVT Prophylaxis: lovenox/ALPS/ambulation with assistance Problem List: 1. Total self-care deficit Pain Ratin Pain Location: n/a Pain Goal: Remain pain free Pain Plan: n/a Tomorrow's Labs & Rationales: none
--- NOTE | 2017-11-04 12:19 | PN- Att Addend ---
Attending Addendum Attending Brief Note Mr. Zee was interviewed and examined. His EMR was reviewed. He denies fever, chills, chest pain, and SOB. He continues to note some left-sided rib pain and constipation. He has remained afebrile. Heart rate at times is borderline bradycardic. Respiratory rate and blood pressures are satisfactory. He is saturating in the mid to high 90s on room air. He has not had a BM today but 2 are recorded for yesterday. He is in no acute distress. Breath sounds are globally decreased. He notes mild tenderness to palpation in the left anterolateral lower chest. Heart rate is regular. He complains of mild tenderness to palpation in the left upper quadrant. We are continuing his maintenance medications and supportive care. As to his GI complaints we will monitor his stool pattern and adjust his medications as needed.
[2017-11-04 14:41] VITALS: BP 122/82
[2017-11-04 21:16] VITALS: BP 136/80
[2017-11-05 06:35] VITALS: BP 137/87
[2017-11-05 08:15] VITALS: BP 140/80
--- NOTE | 2017-11-05 08:32 | PN- Housestaff ---
See Addendum Subjective Follow-up For: constipation Complaints: abdominal pain and rib pain Subjective: Patient reports feeling better after bowel movement on Friday 11/03. He does report diffuse abdominal pain and some rib pain. He denies n/v/d, chest pain, SOB. He is curious about home care and how that will be resolved. Review of Systems Constitutional: Reports: see HPI. Objective Last 24 Hrs of Vital Signs/I&O Vital Signs Date Time Temp Pulse Resp B/P B/P Pulse O2 O2 Flow FiO2 Mean Ox Delivery Rate 11/05 0815 56 140/80 100 Room Air 11/05 0635 97.8 57 20 137/87 99 Room Air 11/05 0000 94 Room Air 11/04 2116 98.1 58 17 136/80 94 Room Air 11/04 1441 98.3 68 18 122/82 96 Part ReBreather Intake & Output 11/05 1600 11/05 0800 11/05 0000 Intake Total 250 480 Output Total 400 350 Balance -150 130 Intake, IV 10 Intake, Oral 240 480 Output, Urine 400 350 Physical Exam General Appearance: Alert, Oriented X3, Cooperative, No Acute Distress Skin: No Rashes Skin Temp/Moisture Exam: Warm/Dry HEENT: Atraumatic, PERRLA Neck: Supple Cardiovascular: Regular Rate, Normal S1, Normal S2, No Murmurs Lungs: Clear to Auscultation Abdomen: Normal Bowel Sounds, Soft, states abdomen is tender to palpation; no rebound; guarding; or facial grimace Extremities: No Edema, Normal Pulses Assessment/Plan Assessment: 67 year old male with PMH Sz, 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 He presents today after being told that his insurance had denies further home health aid. He states he was told by his social work supervisor to call EMS and come to the ED. Patient is being admitted to general medicine service for management of the following: Problem List: 1. Unsafe to be at home without assistance 2. Constipation 3. Atypical chest pain-chronic #Unsafe home environment as he required daily assistance -Will have case management see patient and work on placement #Atypical chest pain-chronic at least 6 months -Negative trop on admission -EKG showed first degree AV block on admission -Lytes within normal limits on admission #Constipation -Senna, Dulcolax suppository -Last BM 11/03 #Chronic medical problems -will continue home meds DVT Prophylaxis: lovenox/ALPS/ambulation with assistance Problem List: 1. Constipation 2. Total self-care deficit Pain Ratin Pain Location: none Pain Goal: Remain pain free Pain Plan: see a/p Tomorrow's Labs & Rationales: none
--- NOTE | 2017-11-05 11:09 | PN- Att Addend ---
Attending Addendum Attending Brief Note Events over the weekend noted. Patient in bed. Vital signs are stable no fever. No new changes on physical patient had a bowel movement. We'll have social work associate assess the situation with his insurance and needs for discharge. Intake & Output 11/05 1600 11/05 0400 11/04 1600 11/04 0400 11/03 1600 11/03 0400 Intake Total 725 822 1425 250 1810 490 Output Total 043 695 0432 400 950 250 Balance -150 130 130 -150 860 240 Intake, IV 10 0 10 30 10 Intake, Oral 133 026 4539 240 1780 480 Number 0 0 2 0 Bowel Movements Output, Urine 546 589 6745 400 950 250 Patient 223 lb Weight Weight Bed scale Measurement Method Current Medications Sig/Miladis Start time Last Medication Dose Route Stop Time Status Admin Acetaminophen 650 MG .STK-MED ONE 11/04 164 DC PO 11/04 164 Acetaminophen 650 MG Q6P PRN 11/02 2014 AC 11/04 PO 1649 Amlodipine Besylate 2.5 MG DAILY 11/03 09 AC 11/05 PO 0832 Aspirin Buffered 81 MG DAILY 11/03 09 AC 11/05 PO 0832 Atorvastatin Calcium 10 MG 1700 11/03 1700 AC 11/04 PO 1650 Enoxaparin Sodium 40 MG DAILY 11/03 09 AC 11/05 SC 0831 Escitalopram Oxalate 20 MG DAILY 11/03 09 AC 11/05 PO 0832 Famotidine 20 MG DAILY 11/03 0900 AC 11/05 PO 0832 Levetiracetam 500 MG BID 11/02 2100 AC 11/05 PO 0832 Levothyroxine Sodium 0.125 MG DAILY AC 11/03 07 AC 11/05 PO 0539 Linaclotide 290 MCG DAILY 11/02 2030 AC 11/05 PO 0832 Lisinopril 5 MG DAILY 11/03 09 AC 11/05 PO 0832 Melatonin 3 MG QPM 11/02 2100 AC 11/04 PO 2010 Multivitamins 1 TAB DAILY 11/03 09 AC 11/05 Therapeutic PO 0832 Nystatin 1 EVERETT BID 11/03 1023 AC 11/05 TOP 0837 Polyethylene Glycol 17 GM DAILY 11/04 1235 AC 11/05 PO 0831 Senna 187 MG AT BEDTIME 11/02 2100 AC 11/04 PO 2010 Tamsulosin HCl 0.8 MG DAILY 11/03 09 AC 11/05 PO 0832 Zolpidem Tartrate 5 MG QPM 11/02 2100 AC 11/04 PO 2009 Laboratory Tests 11/03/17 0710: Anion Gap 9, Estimated GFR > 60, BUN/Creatinine Ratio 16.0, Magnesium 1.9, Troponin I < 0.01, CBC w Diff NO MAN DIFF REQ, RBC 4.18 L, MCV 91.6, MCH 31.2 H, MCHC 34.1, RDW 13.0, MPV 7.1 L, Gran % 71.6, Lymphocytes % 18.4 L, Monocytes % 6.9, Eosinophils % 2.8, Basophils % 0.3, Absolute Granulocytes 3.5, Absolute Lymphocytes 0.9 L, Absolute Monocytes 0.3, Absolute Eosinophils 0.1, Absolute Basophils 0 Vital Signs Date Time Temp Pulse Resp B/P B/P Pulse O2 O2 Flow FiO2 Mean Ox Delivery Rate 11/05 0815 56 140/80 100 Room Air 11/05 0635 97.8 57 20 137/87 99 Room Air 11/05 0000 94 Room Air 11/04 2116 98.1 58 17 136/80 94 Room Air 11/04 1441 98.3 68 18 122/82 96 Part ReBreather
[2017-11-05 14:40] VITALS: BP 94/70
--- NOTE | 2017-11-05 14:47 | Discharge Summary ---
Visit Information Visit Dates Admission Date: 11/02/17 Hospital Course Course Attending Physician: Jett REEVES,Vasile Primary Care Physician: Jett REEVES,[facility] Course: Mr. 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 He presents today after being told that his insurance had denies further home health aid. He states he was told by his professor of social work to call EMS and come to the ED. He was admitted to general medicine service for management of the following: Problem List: 1. Unsafe to be at home without assistance 2. Constipation Admission Data: T97.8 P64 RR18 BP113/79 Sat 96%RA INR 1.2 WBC 5.1, Hbg 12.[address] Chest/abd/pelv: 1. No evidence of acute pneumonia, pleural effusion or pneumothorax. 2. No acute findings in the abdomen or pelvis compared to 06/21/2017. 3. Left inguinal lymph nodes have slightly increased in size compared to 06/21/2017; this is of questionable significance. #Unsafe home environment as he requires daily assistance. Insurance no longer providing coverage. Case management worked tirelessly on this issue and was able to get his home services re-instated starting 11/09/17 at 11am. #Constipation was treated with the following: Senna, Dulcolax suppository. Resolution of constipation on 11/03. #Chronic medical problems: he was continued on all his home medications and instructed to resume this medications at home upon discharge from the hospital. On November 09, 2017 he is stable and has secured home health services starting at 11am today. He will be safely discharged home with follow up with his PCP. Allergies: Coded Allergies: Iodinated Contrast- Oral and IV Dye (UNKNOWN PER PT 08/05/17) Penicillins (UNKNOWN PER PT 08/05/17) bacitracin (PER PT EYE OINTMENT -DOES NOT REMEMBER REACTION 05/05/17) Discharge Instructions Medications at Discharge Discharge Medications: Continue taking these medications: Tamsulosin HCl (Flomax) 0.4 MG CAP.ER.24H 2 Capsule ORAL DAILY Comments: Last Taken: 08/11/17 Time: 9 am Simvastatin (Zocor*) 20 MG TABLET 1 Tablet ORAL Every night Comments: Last Taken:07-01-17 Time:1700 Amlodipine (Norvasc) 2.5 MG TABLET 1 Tablet ORAL DAILY Comments: Last Taken: 08/11/17 Time: 9 am Famotidine (Famotidine) 20 MG TABLET 1 Tablet ORAL DAILY Comments: Last Taken: 08/11/17 Time: 9 am Levothyroxine Sodium (Levothyroxine Sodium) 125 MCG TABLET 1 Tablet ORAL DAILY BEFORE BREAKFAST Comments: Last Taken: 08/11/17 Time: 6:00 am Lisinopril (Prinivil) 5 MG TABLET 1 Tablet ORAL DAILY Comments: Last Taken: 08/11/17 Time: 9 am Escitalopram Oxalate (Lexapro) 20 MG TABLET 1 Tablet ORAL DAILY Comments: Last Taken: 08/11/17 Time: 9 am Levetiracetam (Keppra) 500 MG TABLET 1 Tablet ORAL TWICE DAILY Comments: Last Taken: 08/11/17 Time: 9 AM Linaclotide (Linzess) 290 MCG CAPSULE 1 Capsule ORAL DAILY Qty = 30 Comments: NOT GIVEN IN HOSPITAL Multiple Vitamin (Multivitamins) 1 EACH TABLET 1 Tablet ORAL DAILY Comments: Last Taken: 08/11/17 Time: 9 am Melatonin (Melatonin) 3 MG TABLET 1 Tablet ORAL Every night Comments: Last Taken: 08/10/17 Time: 9 PM Zolpidem Tartrate (Zolpidem Tartrate) 5 MG TABLET 1 Tablet ORAL Every night Qty = 7 Sennosides (Senna) 8.6 MG TABLET 2 Tablet ORAL TWICE DAILY Aspirin (Ecotrin*) 81 MG TABLET.DR 1 Tablet ORAL DAILY Qty = 30 Comments: Last Taken: 08/11/17 Time: 0900 am Acetaminophen (Tylenol Extra Strength) 500 MG TABLET 1 Tablet ORAL TWICE DAILY as needed for Knee pain/fracture Qty = 14 Comments: Last Taken: 08/11/17 Time: 1600
[2017-11-05 22:26] VITALS: BP 130/80
[2017-11-06 06:51] VITALS: BP 150/99
--- NOTE | 2017-11-06 07:56 | PN- Housestaff ---
Subjective Follow-up For: constipation social admit for loss of home health services Complaints: no complaints Subjective: Patient states he feels well and is just a little tired this morning. Last BM was yesterday and normal for him. Denies any fever, chills, n/v/d, chest pain, SOB, abdominal pain. Review of Systems Constitutional: Reports: see HPI. Objective Last 24 Hrs of Vital Signs/I&O Vital Signs Date Time Temp Pulse Resp B/P B/P Pulse O2 O2 Flow FiO2 Mean Ox Delivery Rate 11/06 0830 60 150/99 11/06 0830 60 150/99 11/06 0830 60 150/99 11/06 0651 97.8 60 18 150/99 99 11/05 2226 98.6 60 17 130/80 95 Room Air 11/05 1440 98.1 64 18 94/70 95 Room Air Intake & Output 11/06 1600 11/06 0800 11/06 0000 Intake Total 240 240 Output Total 200 Balance 240 40 Intake, Oral 240 240 Output, Urine 200 Physical Exam General Appearance: Alert, Oriented X3, Cooperative, No Acute Distress Skin: No Rashes Skin Temp/Moisture Exam: Warm/Dry HEENT: Atraumatic, PERRLA Neck: Supple Cardiovascular: Regular Rate, Normal S1, Normal S2 Lungs: Clear to Auscultation Abdomen: Normal Bowel Sounds, Soft, No Tenderness Neurological: decreased strength left upper extremity and left lower extremity Assessment/Plan Assessment: 67 year old male with PMH Sz, 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 He presents today after being told that his insurance had denies further home health aid. He states he was told by his director social to call EMS and come to the ED. Patient is being admitted to general medicine service for management of the following: Problem List: 1. Unsafe to be at home without assistance 2. Constipation 3. Atypical chest pain-chronic #Unsafe home environment as he required daily assistance -Case management and social work are involved and working on resolution of issues #Atypical chest pain-chronic at least 6 months -Negative trop on admission -EKG showed first degree AV block on admission -Lytes within normal limits on admission #Constipation -Senna, Dulcolax suppository -Last BM 11/05 #Chronic medical problems -will continue home meds DVT Prophylaxis: lovenox/ALPS/ambulation with assistance Dispo: Patient may be here for a few days while paperwork is being processed for home services/insurance approval. Problem List: 1. Total self-care deficit 2. Constipation Pain Ratin Pain Location: none Pain Goal: Remain pain free Pain Plan: see a/p Tomorrow's Labs & Rationales: none
--- NOTE | 2017-11-06 10:14 | PN- Att Addend ---
Attending Addendum Attending Brief Note No new complaints. Vital signs are stable no fever. No major changes on physical examination. patient services rep working with the insurance companies to get approval for the services he needs when he is discharged until then we will need to monitor him in the hospital.. Intake & Output 11/06 1600 11/06 0400 11/05 1600 11/05 0400 11/04 1600 11/04 0400 Intake Total 240 240 330 360 9531 250 Output Total 200 447 926 8961 400 Balance 240 40 -100 130 130 -150 Intake, IV 30 0 10 Intake, Oral 240 240 579 093 3015 240 Number 1 0 0 Bowel Movements Output, Urine 200 813 874 6960 400 Current Medications Sig/Miladis Start time Last Medication Dose Route Stop Time Status Admin Acetaminophen 650 MG Q6P PRN 11/02 2014 AC 11/04 PO 1649 Amlodipine Besylate 2.5 MG DAILY 11/03 09 AC 11/06 PO 0830 Aspirin Buffered 81 MG DAILY 11/03 09 AC 11/06 PO 0830 Atorvastatin Calcium 10 MG 1700 11/03 1700 AC 11/05 PO 1616 Enoxaparin Sodium 40 MG DAILY 11/03 09 AC 11/06 SC 0829 Escitalopram Oxalate 20 MG DAILY 11/03 0900 AC 11/06 PO 0829 Famotidine 20 MG DAILY 11/03 09 AC 11/06 PO 0830 Levetiracetam 500 MG BID 11/02 2100 AC 11/06 PO 0829 Levothyroxine Sodium 0.125 MG DAILY AC 11/03 07 AC 11/06 PO 0528 Linaclotide 290 MCG DAILY 11/02 2030 AC 11/06 PO 0829 Lisinopril 5 MG DAILY 11/03 09 AC 11/06 PO 0830 Melatonin 3 MG QPM 11/02 2100 AC 11/05 PO 2106 Multivitamins 1 TAB DAILY 11/03 09 AC 11/06 Therapeutic PO 0830 Nystatin 1 EVERETT BID 11/03 1023 AC 11/06 TOP 0836 Patient Medication 1 ED ONE ONE 11/05 1944 DC Teaching ED 11/05 1945 Polyethylene Glycol 17 GM DAILY 11/04 1235 AC 11/06 PO 0829 Senna 187 MG AT BEDTIME 11/02 2100 AC 11/05 PO 2106 Tamsulosin HCl 0.8 MG DAILY 11/03 0900 AC 11/06 PO 0830 Zolpidem Tartrate 5 MG QPM 11/02 2100 AC 11/05 PO 2105 Vital Signs Date Time Temp Pulse Resp B/P B/P Pulse O2 O2 Flow FiO2 Mean Ox Delivery Rate 11/06 0830 60 150/99 11/06 0830 60 150/99 11/06 0830 60 150/99 11/06 0651 97.8 60 18 150/99 99 11/05 2226 98.6 60 17 130/80 95 Room Air 11/05 1440 98.1 64 18 94/70 95 Room Air
[2017-11-06 14:55] VITALS: BP 114/60
[2017-11-06 22:00] VITALS: BP 138/81
[2017-11-07 07:00] VITALS: BP 132/88
--- NOTE | 2017-11-07 08:58 | PN- Housestaff ---
Subjective Follow-up For: social admit unsafe to discharge home without 24 hr care Complaints: no complaints Subjective: Patient states he slept well overnight and has no complaints. He states he did not get out of bed yesterday and would like to today. Denies fever, chills, n/v /d, chest pain, SOB, abdominal pain. Review of Systems Constitutional: Reports: see HPI. Objective Last 24 Hrs of Vital Signs/I&O Vital Signs Date Time Temp Pulse Resp B/P B/P Pulse O2 O2 Flow FiO2 Mean Ox Delivery Rate 11/07 0945 70 130/84 11/07 0944 70 130/84 11/07 0944 70 130/84 11/07 0700 97.7 60 18 132/88 97 Room Air 11/06 2200 97.7 68 20 138/81 95 Room Air 11/06 1455 98.4 67 20 114/60 95 Room Air Intake & Output 11/07 1600 11/07 0800 11/07 0000 Intake Total 120 510 Output Total 425 Balance 120 85 Intake, IV 10 Intake, Oral 120 500 Number 0 Bowel Movements Output, Urine 425 Physical Exam General Appearance: Alert, Oriented X3, Cooperative, No Acute Distress Skin: No Rashes Skin Temp/Moisture Exam: Warm/Dry HEENT: Atraumatic, PERRLA Neck: Supple Cardiovascular: Regular Rate, Normal S1, Normal S2, No Murmurs Lungs: Clear to Auscultation Abdomen: Normal Bowel Sounds, Soft, No Tenderness, obese Neurological: left sided weakness 2/2 CVA Extremities: No Edema, Normal Pulses Assessment/Plan Assessment: 67 year old male with PMH Sz, 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 He presents today after being told that his insurance had denies further home health aid. He states he was told by his manager social to call EMS and come to the ED. Patient is being admitted to general medicine service for management of the following: Problem List: 1. Unsafe to be at home without assistance 2. Constipation 3. Atypical chest pain-chronic #Unsafe home environment as he required daily assistance -Case management and social work are involved and working on resolution of issues #Atypical chest pain-chronic at least 6 months-RESOLVED -Negative trop on admission -EKG showed first degree AV block on admission -Lytes within normal limits on admission #Constipation -Senna, Dulcolax suppository -Last BM 11/06 #Chronic medical problems -will continue home meds DVT Prophylaxis: lovenox/ALPS/ambulation with assistance Dispo: Patient may be here for a few days while paperwork is being processed for home services/insurance approval. Problem List: 1. Total self-care deficit 2. Constipation Pain Ratin Pain Location: none Pain Goal: Remain pain free Pain Plan: see a/p Tomorrow's Labs & Rationales: none
--- NOTE | 2017-11-07 10:10 | PN- Att Addend ---
Attending Addendum Attending Brief Note No new issues. Vital signs are stable no fever. No new changes on physical. Disposition plans continue. Intake & Output 11/07 1600 11/07 0400 11/06 1600 11/06 0400 11/05 0400 Intake Total 949 737 6607 240 750 480 Output Total 425 600 200 850 350 Balance 120 85 610 40 -100 130 Intake, IV 10 10 30 Intake, Oral 251 007 9713 240 720 480 Number 0 1 Bowel Movements Output, Urine 425 600 200 850 350 Current Medications Sig/Miladis Start time Last Medication Dose Route Stop Time Status Admin Acetaminophen 650 MG Q6P PRN 11/02 2014 AC 11/04 PO 1649 Amlodipine Besylate 2.5 MG DAILY 11/03 899 AC 11/07 PO 0944 Aspirin Buffered 81 MG DAILY 11/03 09 AC 11/07 PO 0944 Atorvastatin Calcium 10 MG 1700 11/03 1700 AC 11/06 PO 1645 Enoxaparin Sodium 40 MG DAILY 11/03 09 AC 11/07 SC 0945 Escitalopram Oxalate 20 MG DAILY 11/03 09 AC 11/07 PO 0944 Famotidine 20 MG DAILY 11/03 09 AC 11/07 PO 0944 Levetiracetam 500 MG BID 11/02 2100 AC 11/07 PO 0945 Levothyroxine Sodium 0.125 MG DAILY AC 11/03 07 AC 11/07 PO 0535 Linaclotide 290 MCG DAILY 11/02 2030 AC 11/07 PO 0944 Lisinopril 5 MG DAILY 11/03 0900 AC 11/07 PO 0944 Melatonin 3 MG QPM 11/02 2100 AC 11/06 PO 2003 Multivitamins 1 TAB DAILY 11/03 09 AC 11/07 Therapeutic PO 0944 Nystatin 1 EVERETT BID 11/03 1023 AC 11/07 TOP 0945 Polyethylene Glycol 17 GM DAILY 11/04 1235 AC 11/07 PO 0944 Senna 187 MG AT BEDTIME 11/02 2100 AC 11/06 PO 2003 Tamsulosin HCl 0.8 MG DAILY 11/03 09 AC 11/07 PO 0945 Zolpidem Tartrate 5 MG QPM 11/02 2100 AC 11/06 PO 2002 Vital Signs Date Time Temp Pulse Resp B/P B/P Pulse O2 O2 Flow FiO2 Mean Ox Delivery Rate 11/07 0845 70 130/84 11/07 0944 70 130/84 11/07 0944 70 130/84 11/07 0700 97.7 60 18 132/88 97 Room Air 11/06 2200 97.7 68 20 138/81 95 Room Air 11/06 1455 98.4 67 20 114/60 95 Room Air
[2017-11-07 14:37] VITALS: BP 114/80
[2017-11-07 22:31] VITALS: BP 146/90
[2017-11-08 06:21] VITALS: BP 140/88
--- NOTE | 2017-11-08 08:00 | PN- Housestaff ---
See Addendum Subjective Follow-up For: social admit: unsafe to be at home without care Complaints: no complaints Subjective: Patient states he slept well overnight. He feels a little constipated, but had a BM yesterday. He states he got up to the chair 3 times yesterday and that was good. Denies fever, chills, n/v/d, chest pain, SOB, abdominal pain Review of Systems Constitutional: Reports: see HPI. Objective Last 24 Hrs of Vital Signs/I&O Vital Signs Date Time Temp Pulse Resp B/P B/P Pulse O2 O2 Flow FiO2 Mean Ox Delivery Rate 11/08 0843 67 140/88 11/08 0842 67 140/88 11/08 0842 67 140/88 11/08 0621 98.0 67 140/88 95 Room Air 11/07 2231 99.4 80 22 146/90 94 Room Air 11/07 1437 98.7 70 20 114/80 95 Room Air Intake & Output 11/08 1600 11/08 0800 11/08 0000 Intake Total Output Total 550 250 Balance -550 -250 Output, Urine 550 250 Patient 223 lb Weight Physical Exam General Appearance: Alert, Oriented X3, Cooperative, No Acute Distress Skin: No Rashes Skin Temp/Moisture Exam: Warm/Dry HEENT: Atraumatic, PERRLA Neck: Supple Cardiovascular: Regular Rate, Normal S1, Normal S2 Lungs: Clear to Auscultation Abdomen: Normal Bowel Sounds, Soft, No Tenderness, obese Extremities: No Edema, chronic venous stasis changes to BLE Assessment/Plan Assessment: 67 year old male with PMH Sz, 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 He presents today after being told that his insurance had denies further home health aid. He states he was told by his social sciences instructor to call EMS and come to the ED. Patient is being admitted to general medicine service for management of the following: Problem List: 1. Unsafe to be at home without assistance 2. Constipation 3. Atypical chest pain-chronic #Unsafe home environment as he required daily assistance -Case management and social work are involved and working on resolution of issues #Atypical chest pain-chronic at least 6 months-RESOLVED -Negative trop on admission -EKG showed first degree AV block on admission -Lytes within normal limits on admission #Constipation -Senna, Dulcolax suppository -Last BM 11/07 #Chronic medical problems -will continue home meds DVT Prophylaxis: lovenox/ALPS/ambulation with assistance Dispo: Patient may be here for a few days while paperwork is being processed for home services/insurance approval. Problem List: 1. Total self-care deficit 2. Constipation Pain Ratin Pain Location: none Pain Goal: Remain pain free Pain Plan: see a/p Tomorrow's Labs & Rationales: none
[2017-11-08 14:01] VITALS: BP 113/61
[2017-11-08 22:39] VITALS: BP 111/44
[2017-11-09 06:36] VITALS: BP 152/90
--- NOTE | 2017-11-09 07:49 | PN- Housestaff ---
See Addendum Subjective Follow-up For: SOCIAL ADMIT: LOSS OF INSURANCE COVERAGE OF HOME HEALTH ASSISTANCE CONSTIPATION Complaints: no complaints Subjective: Patient states he feels okay and was out of bed in the chair for two hours yesterday. He feels ready to go home. Denies fever, chills, n/v/d, chest pain, SOB, abdominal pain. Review of Systems Constitutional: Reports: see HPI. Objective Last 24 Hrs of Vital Signs/I&O Vital Signs Date Time Temp Pulse Resp B/P B/P Pulse O2 O2 Flow FiO2 Mean Ox Delivery Rate 11/09 0636 98.1 61 20 152/90 96 Room Air 11/08 2239 97.9 82 18 111/44 93 Room Air 11/08 1401 98.3 98 18 113/61 93 Room Air 11/08 0843 67 140/88 11/08 0842 67 140/88 11/08 0842 67 140/88 Intake & Output 11/09 1600 11/09 0800 11/09 0000 Intake Total 540 Output Total 350 Balance 190 Intake, Oral 540 Output, Urine 350 Physical Exam General Appearance: Alert, Oriented X3, Cooperative, No Acute Distress Skin: No Rashes Skin Temp/Moisture Exam: Warm/Dry HEENT: Atraumatic, PERRLA Neck: Supple Cardiovascular: Regular Rate, Normal S1, Normal S2, No Murmurs Lungs: Clear to Auscultation Abdomen: Normal Bowel Sounds, Soft, No Tenderness Extremities: chronic venous changes BLE Assessment/Plan Assessment: 67 year old male with PMH Sz, 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 He presents today after being told that his insurance had denies further home health aid. He states he was told by his renal social worker to call EMS and come to the ED. Patient is being admitted to general medicine service for management of the following: Problem List: 1. Unsafe to be at home without assistance 2. Constipation 3. Atypical chest pain-chronic #Unsafe home environment as he required daily assistance -Case management and social work are involved and working on resolution of issues #Atypical chest pain-chronic at least 6 months-RESOLVED -Negative trop on admission -EKG showed first degree AV block on admission -Lytes within normal limits on admission #Constipation -Senna, Dulcolax suppository -Last BM 11/08 #Chronic medical problems -will continue home meds DVT Prophylaxis: lovenox/ALPS/ambulation with assistance Dispo: Home today with home health services. Services will be available starting at 11am. DC patient after that time. Problem List: 1. Total self-care deficit 2. Constipation Pain Ratin Pain Location: none Pain Goal: Remain pain free Pain Plan: see a/p Tomorrow's Labs & Rationales: none
[2017-11-09 09:07] VITALS: BP 152/90
--- NOTE | 2017-11-09 10:48 | Patient Discharge Instructions ---
Discharge Instructions General Discharge Information You were seen/treated for: constipation and loss of home health services Watch for these problems: fever, chills, nausea, vomiting, abdominal pain, chest pain, shortness of breath Special Instructions: Please resume all your medications as you were previously taking them at home Diet Continue normal diet: Yes Recommended Diet: Regular Activity Full Activity/No Limits: Yes (as tolerated and able ) Acute Coronary Syndrome Inclusion Criteria At DC or during hospital stay patient has or had the following: ACS DIAGNOSIS No Discharge Core Measures Meds if any: Prescribed or Continued at Discharge Meds if any: NOT Prescribed or Continued at Discharge Congestive Heart Failure Inclusion Criteria At DC or during hospital stay patient has or had the following: CHF DIAGNOSIS No Discharge Core Measures Meds if any: Prescribed or Continued at Discharge Meds if any: NOT Prescribed or Continued at Discharge Cerebrovascular accident Inclusion Criteria At DC or during hospital stay patient has or had the following: CVA/TIA Diagnosis No Discharge Core Measures Meds if any: Prescribed or Continued at Discharge Meds if any: NOT Prescribed or Continued at Discharge Venous thromboembolism Inclusion Criteria VTE Diagnosis No VTE Type NONE VTE Confirmed by (Test) NONE Discharge Core Measures - Per Current guidelines, there needs to be overlap - treatment for the first 5 days of Warfarin therapy. - If discharged on Warfarin prior to 5 days of - overlap therapy, the patient will need to be - assessed for post discharge needs including - *Post discharge parental anticoagulation - *Warfarin and/or parental anticoagulation education - *Follow up date to check INR post discharge At least 5 days overlap therapy as Inpatient No Meds if any: Prescribed or Continued at Discharge Note: Overlap Therapy is Warfarin and Anticoagulant Meds if any: NOT Prescribed or Continued at Discharge
== END 2017-11-09 12:00 | disposition home health service (06) | DRG 641 ==
LOC: ERH 19:19 → 2NB 11-02 18:21 → ERHI 11-02 18:21 → ENRESERV 11-02 19:52 → ENTRNSPT 11-02 21:25 → EDTRNSPTSTS 11-02 21:37 → 2NB 11-02 21:45 → CMPTRNSPT 11-02 22:05 → ENPENDDIS 11-09 08:55 → 2NB 11-09 12:00
PROVIDERS: Internal Medicine; Physician Assistant
DX: R62.7 Adult failure to thrive (principal); I69.354 Hemiplegia and hemiparesis following cerebral infarction affecting left non-dominant side; Z75.4 Unavailability and inaccessibility of other helping agencies; I10 Essential (primary) hypertension; E78.5 Hyperlipidemia, unspecified; I73.9 Peripheral vascular disease, unspecified; N40.0 Benign prostatic hyperplasia without lower urinary tract symptoms; E03.9 Hypothyroidism, unspecified; K21.9 Gastro-esophageal reflux disease without esophagitis; F32.9 Major depressive disorder, single episode, unspecified; Z88.0 Allergy status to penicillin; Z88.8 Allergy status to other drugs, medicaments and biological substances; Z91.041 Radiographic dye allergy status; Z90.49 Acquired absence of other specified parts of digestive tract; K59.00 Constipation, unspecified; Z66 Do not resuscitate; R07.89 Other chest pain; I44.0 Atrioventricular block, first degree; Z86.718 Personal history of other venous thrombosis and embolism; Z79.01 Long term (current) use of anticoagulants; Z91.81 History of falling; R79.1 Abnormal coagulation profile
CPT/HCPCS: 2NBSP; 36592; 74176; 81003; 82436; 93005; 93010; 97161-GP; 97530-GP; G8978-GP; G8979-GP; G8980-GP; J1650

== ENCOUNTER 2017-11-28 19:06 | Inpatient (IN) | payer OTHER, MEDICARE ==
[~2017-11-28] VITALS: Ht 185.4 cm; Wt 104.3 kg
--- NOTE | 2017-11-28 19:23 | ED CRITICAL CARE ---
History of Present Illness General Chief Complaint: Seizure Stated Complaint: BIBA SEIZURE/UNRESPONSIVE Source: EMS Exam Limitations: unable to give history, not alert/orientated, clinical condition Vital Signs & Intake/Output Vital Signs & Intake/Output Vital Signs Date Time Temp Pulse Resp B/P B/P Pulse O2 O2 Flow FiO2 Mean Ox Delivery Rate 11/28 2230 98.8 101 20 122/83 95 Nasal 4.0L Cannula 11/28 2220 94 Nasal 4.0L Cannula 11/283 99 BIPAP 50% 11/28 2104 97.8 110 24 134/81 100 BIPAP 50% 11/28 1950 98 11/28 191 100 100% 11/28 1907 98.0 126 26 115/71 82 Room Air Allergies Coded Allergies: Iodinated Contrast- Oral and IV Dye (UNKNOWN PER PT 08/05/17) Penicillins (UNKNOWN PER PT 08/05/17) bacitracin (PER PT EYE OINTMENT -DOES NOT REMEMBER REACTION 05/05/17) Reconcile Medications Acetaminophen (Tylenol Extra Strength) 500 MG TABLET 1 TAB PO BID PRN Knee pain/fracture Amlodipine (Norvasc) 2.5 MG TABLET 1 TAB PO DAILY HEART (Reported) Aspirin (Ecotrin*) 81 MG TABLET.DR 1 TAB PO DAILY Heart Escitalopram Oxalate (Lexapro) 20 MG TABLET 1 TAB PO DAILY DEPRESSION ( Reported) Famotidine 20 MG TABLET 1 TAB PO DAILY GI (Reported) Levetiracetam (Keppra) 500 MG TABLET 1 TAB PO BID SEIZURES (Reported) Levothyroxine Sodium 125 MCG TABLET 1 TAB PO DAILY AC THYROID (Reported) Linaclotide (Linzess) 290 MCG CAPSULE 1 CAP PO DAILY BOWEL (Reported) Lisinopril (Prinivil) 5 MG TABLET 1 TAB PO DAILY BP (Reported) Melatonin 3 MG TABLET 1 TAB PO QPM SUPPLEMENT (Reported) Multiple Vitamin (Multivitamins) 1 EACH TABLET 1 TAB PO DAILY SUPPLEMENT ( Reported) Sennosides (Senna) 8.6 MG TABLET 2 TAB PO BID GI (Reported) Simvastatin (Zocor*) 20 MG TABLET 1 TAB PO QPM CHOLESTEROL (Reported) Tamsulosin HCl (Flomax) 0.4 MG CAP.ER.24H 2 CAP PO DAILY PROSTATE (Reported) Zolpidem Tartrate 5 MG TABLET 1 TAB PO QPM SLEEP (Reported) Triage Nurses Notes Reviewed? yes HPI: Mr. 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 He had a total of 4 episodes of witnessed generalized tonic- clonic seizures. EMS was called by the patient's home health aide for a sick call. In the presence of EMS, patient had 2 episodes of tonic-clonic seizures. The EMS gave Versed IM. The patient was in respiratory distress and satting in the 80s so they put him on Ambubag with high flow oxygen. In the emergency department the patient was on to the bus driver/monitor, started on high flow oxygen through nonrebreather maskand then BiPAP; saturation was 97% , fingerstick glucose was 156. The patient had the third episode of tonic-clonic seizures in the emergency department when he came back from the CT head at 7:20. The gen. tonic clonic activity lasted <1min. The fourth episode of generalized tonic-clonic seizure was at 8:13 PM and lasted less than 1 minute. His most recent admission was on the general medicine floor at [facility] in October. He was discharged on November 05 for presenting complaint of constipation and unsafe to be discharged back home without assistance due to insurance issues. (Kateryna REEVES,Brenda) Past History Travel History Traveled to [place] past 21 day No Medical History Any Pertinent Medical History? 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 . MOTHER (DM, Breast Ca, Stroke). . Hx Contributory? Yes (Brenda Avendaño MD) Review of Systems Review of Systems Constitutional: Reports: no symptoms (pt unresponsive ), see HPI. Eyes: Reports: see HPI. Ears, Nose, Throat, Mouth: Reports: see HPI. Respiratory: Reports: see HPI. Cardiovascular: Reports: see HPI. Gastrointestinal/Abdominal: Reports: see HPI. Genitourinary: Reports: see HPI. Musculoskeletal: Reports: see HPI. Skin: Reports: see HPI. Neurological/Psychological: Reports: see HPI. (Brenda Avendaño MD) Review of Systems All Other Systems: Reviewed and Negative (Familia Souza MD) Physical Exam Physical Exam General Appearance: severe distress Head: atraumatic, normal appearance Eyes: Bilateral: normal appearance, PERRL. Ears, Nose, Throat, Mouth: moist mucous membrane Respiratory: respiratory distress Cardiovascular: regular rate/rhythm Peripheral Pulses: 4+ carotid (R), 4+ carotid (L), 1+ radial (R), 1+ radial (L) Gastrointestinal: soft, no organomegaly [place] Coma Score Stefanie Coma Score Response Value Best Eye Response (Stefanie): no response 1 Best Verbal Response: no verbal response 1 Best Motor Response: no motor response 1 Total 3 Core Measures ACS in differential dx? Yes CVA/TIA Diagnosis Yes Sepsis Present: No Sepsis Focused Exam Completed? Yes (Brenda Avendaño MD) Physical Exam Neck: normal inspection, supple, full range of motion, normal alignment Back: normal inspection Extremities: normal range of motion Neurologic/Psych: disoriented x 3, motor/sensory deficits Skin: intact, normal color (Familia Souza MD) Progress Differential Diagnoses I considered the following diagnoses in my evaluation of the patient: TIA/CVA/ Seizures/ACS/Withdrawal/Meningitis/Encephalitis Plan of Care: Orders Procedure Date/time Status Regular Diet 11/29 B Active Patient Data 11/29 2147 Active OXYGEN SETUP (GEN) 11/28 2145 Active Saline Lock 11/28 2145 Active Admit to inpatient 11/28 2145 Active Vital Signs 11/28 2145 Active Activity/Ambulation 11/28 2145 Active Code Status 11/28 2145 Active URINALYSIS 11/28 2050 Active TROPONIN LEVEL 11/28 1909 Complete PROTHROMBIN TIME 11/28 1909 Complete PROLACTIN 11/28 1909 Complete MAGNESIUM 11/28 1909 Complete COMPREHENSIVE METABOLIC PANEL 11/28 1909 Complete CBC WITHOUT DIFFERENTIAL 11/28 1909 Complete EKG 11/28 1909 Active BIPAP 11/28 UNK Complete Laboratory Tests 11/28/171914: Anion Gap 25 H, Estimated GFR 55 L, BUN/Creatinine Ratio 8.5, Glucose 150 H, Calcium 9.3, Magnesium 2.2, Total Bilirubin 1.3, AST 27, ALT 19 L, Alkaline Phosphatase 87, Troponin I < 0.01, Total Protein 7.4, Albumin 4.3, Globulin 3.1, Albumin/Globulin Ratio 1.4, Prolactin 33.8 H, PT 23.1 H, INR 2.10 H, CBC w Diff NO MAN DIFF REQ, RBC 4.84, MCV 93.2, MCH 30.8, MCHC 33.1, RDW 13.1, MPV 7.6 , Gran % 68.0, Lymphocytes % 26.0, Monocytes % 5.2, Eosinophils % 0.6, Basophils % 0.2, Absolute Granulocytes 9.6 H, Absolute Lymphocytes 3.7 H, Absolute Monocytes 0.7 H, Absolute Eosinophils 0.1, Absolute Basophils 0 Initial ED EKG: normal sinus rhythm Prior EKG: unchanged (Brenda Avendaño MD) Differential Diagnoses I considered the following diagnoses in my evaluation of the patient: (Harley REEVES,Familia) Departure Departure Disposition: STILL A PATIENT Condition: Stable Clinical Impression Primary Impression: Seizure disorder Secondary Impressions: Altered mental state Referrals: Vasile Frausto MD (PCP/Family) Departure Forms: Customer Survey General Discharge Information (Brenda Avendaño MD) PA/NONPROFIT DIRECTOR Co-Sign Statement Statement: ED Attending supervision documentation- [] I saw and evaluated the patient. I have also reviewed all the pertinent lab results and diagnostic results. I agree with the findings and the plan of care as documented in the PA's/NONPROFIT DIRECTOR's documentation. [] I have reviewed the ED Record and agree with the PA's/NONPROFIT DIRECTOR's documentation. [] Additions or exceptions (if any) to the PAs/NONPROFIT DIRECTOR's note and plan are summarized below: [] Resident Co-Sign Statement Statement: ED Attending supervision documentation- x I saw and evaluated the patient. I have also reviewed all the pertinent lab results and diagnostic results. I agree with the findings and the plan of care as documented in the Resident's documentation. Multiple seizures, initially having respiratory distress requiring ambu bag / BiPAP. [] I have reviewed the ED Record and agree with the Resident's documentation. [] Additions or exceptions (if any) to the Resident's note and plan are summarized below: [] (Familia Souza MD) Critical Care Note Critical Care Note Critical Care Time: 30-74 min (Brenda Avendaño MD) Critical Care Note Critical Care Time: 30-74 min (40) (Familia Souza MD) ED Attending Observation Initial Observation Note: I have seen and personally examined NUBIA PAGAN on 11/28/17 at 2047. I agree with the current emergency department documentation. The disposition (admission or discharge) is uncertain at this time, he needs a period of observation for the following reason(s): Altered mental status, seizure disorder The ED Nurse caring for this patient has been personally informed as to what the patient is being observed for. (Brenda Avendaño MD)
[2017-11-28 19:43] LABS: ABSOLUTE BASOPHIL COUNT 0 /CUMM (0.0-0.2); ABSOLUTE EOSINOPHIL COUNT 0.1 /CUMM (0.0-0.7); ABSOLUTE GRANULOCYTE CT 9.6 /CUMM (1.4-6.5); ABSOLUTE LYMPH COUNT 3.7 /CUMM (1.2-3.4); ABSOLUTE MONOCYTE COUNT 0.7 /CUMM (0.10-0.60); BASOPHIL % 0.2 % (0.0-2.0); EOSINOPHIL % 0.6 % (0-5); HEMATOCRIT 45.1 % (42-52); MEAN CORPUSCULAR HGB 30.8 PG (27.0-31.0); MEAN CORPUSCULAR HGB CONC 33.1 G/DL (33.0-37.0); MEAN CORPUSCULAR VOLUME 93.2 FL (80.0-94.0); MEAN PLATELET VOLUME 7.6 FL (7.4-10.4); PLATELET COUNT 225 /CUMM (130-400); RBC DISTRIBUTION WIDTH 13.1 % (11.5-14.5); RED BLOOD CELL CT 4.84 /CUMM (4.70-6.10); WHITE BLOOD CELL COUNT 14.1 /CUMM (4.8-10.8)
[2017-11-28 19:53] LABS: PT 23.1 SEC (9.4-12.5)
--- NOTE | 2017-11-28 20:05 | CT SCAN REPORT ---
EXAMINATION: CT HEAD WITHOUT CONTRAST CT CERVICAL SPINE WITHOUT CONTRAST CLINICAL INFORMATION: Altered metal status. COMPARISON: Head CT and cervical spine CT 08/05/2017. TECHNIQUE: CT of the head and cervical spine were performed without intravenous contrast. Multiplanar reformats were rendered and reviewed. DLP: 936 mGy-cm. FINDINGS: CT head: There is redemonstration of chronic right MCA infarct with encephalomalacia and gliosis noted in the right basal ganglia, frontal lobe, insula, and temporal lobe. Additional area of encephalomalacia and gliosis is noted in the left lateral cerebellum. There is no CT evidence of acute large territory infarction. There is no hemorrhage, mass, or extra-axial collection. There is right lateral ventricular ex vacuo dilatation. There is Wallerian degeneration along the right-sided corticospinal tract. There is mild brain parenchymal volume loss and mild small vessel ischemic changes in the cerebral white matter. The visualized paranasal sinuses and mastoid air cells are clear. CT cervical spine: The cervical vertebral bodies maintain normal heights and alignment. The craniovertebral junction is intact. No fracture is seen. There are multilevel degenerative changes with intervertebral disc height loss, endplate spurring, and uncovertebral and facet arthropathy. Facet arthropathy is most advanced on the left at C2-C3 and C3-C4 and on the right at C4-C5. There is no high-grade osseous encroachment on the spinal canal. There is multilevel neural foraminal stenosis which is moderate to severe on the left at C2-C3, on the left at C3-C4, on the right at C4-C5, and on the right more than left at C5-C6 and bilaterally at C6-C7. There is pleural-parenchymal thickening at the lung apices. No neck mass or fluid collection is seen. IMPRESSION: CT head: No acute intracranial abnormality. Chronic large right MCA infarction with additional smaller chronic infarction in the left lateral cerebellum. CT cervical spine: No cervical spine fracture or malalignment. Advanced multilevel degenerative spondylotic changes without high-grade spinal canal stenosis.
--- NOTE | 2017-11-28 21:55 | History & Physical ---
General Information and HPI Allergies/Medications Allergies: Coded Allergies: Iodinated Contrast- Oral and IV Dye (UNKNOWN PER PT 08/05/17) Penicillins (UNKNOWN PER PT 08/05/17) bacitracin (PER PT EYE OINTMENT -DOES NOT REMEMBER REACTION 05/05/17) Home Med list Acetaminophen (Tylenol Extra Strength) 500 MG TABLET 1 TAB PO BID PRN Knee pain/fracture Amlodipine (Norvasc) 2.5 MG TABLET 1 TAB PO DAILY HEART (Reported) Aspirin (Ecotrin*) 81 MG TABLET.DR 1 TAB PO DAILY Heart Escitalopram Oxalate (Lexapro) 20 MG TABLET 1 TAB PO DAILY DEPRESSION ( Reported) Famotidine 20 MG TABLET 1 TAB PO DAILY GI (Reported) Levetiracetam (Keppra) 500 MG TABLET 1 TAB PO BID SEIZURES (Reported) Levothyroxine Sodium 125 MCG TABLET 1 TAB PO DAILY AC THYROID (Reported) Linaclotide (Linzess) 290 MCG CAPSULE 1 CAP PO DAILY BOWEL (Reported) Lisinopril (Prinivil) 5 MG TABLET 1 TAB PO DAILY BP (Reported) Melatonin 3 MG TABLET 1 TAB PO QPM SUPPLEMENT (Reported) Multiple Vitamin (Multivitamins) 1 EACH TABLET 1 TAB PO DAILY SUPPLEMENT ( Reported) Sennosides (Senna) 8.6 MG TABLET 2 TAB PO BID GI (Reported) Simvastatin (Zocor*) 20 MG TABLET 1 TAB PO QPM CHOLESTEROL (Reported) Tamsulosin HCl (Flomax) 0.4 MG CAP.ER.24H 2 CAP PO DAILY PROSTATE (Reported) Zolpidem Tartrate 5 MG TABLET 1 TAB PO QPM SLEEP (Reported) Past History Travel History Traveled to [place] past 21 day No Medical History Neurological: seizure, CVA-L SIDED PARLAYSIS (2007) EENT: NONE Cardiovascular: hypertension, hyperlipidemia, PVD, VSD Respiratory: NONE Gastrointestinal: NONE Hepatic: NONE Renal: NONE Musculoskeletal: NONE Psychiatric: NONE Endocrine: hypothyroidism Blood Disorders: DVT Cancer(s): 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 . MOTHER (DM, Breast Ca, Stroke). . Psychosocial History Services at Home: Home Health Aide, Nursing Functional Ability Ambulation: walker Core Measures/Misc (01/07) Cerebrovascular Accident CVA/TIA Diagnosis: Yes Sepsis (View protocol) Sepsis Present: No If YES complete Sepsis Event Note If YES complete Sepsis Event Note
--- NOTE | 2017-11-28 22:14 | RADIOLOGY REPORT ---
EXAMINATION: XR CHEST PORTABLE CLINICAL INFORMATION: Seizure disorder. COMPARISON: CT chest 10/02/2017 and chest radiograph 06/21/2017. TECHNIQUE: Portable frontal view of the chest was obtained. FINDINGS: The lungs are poorly expanded. The heart size is probably normal allowing for this. Some bibasilar atelectasis is seen. No infiltrates, effusions or lung masses are seen. Bilateral shoulder degenerative changes and rotator cuff disease is noted. IMPRESSION: Poorly expanded lungs. No acute intrathoracic disease.
--- NOTE | 2017-11-28 23:10 | History & Physical ---
General Information and HPI MD Statement: I have seen and personally examined NUBIA ELDRIDGE and documented this H&P. The patient is a 67 year old M who presented with a patient stated chief complaint of [seizures]. 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 The patient presented to [facility] ED with complaint of tonic-clonic seizures and unresponsivenes. During my encounter with the patient he was extremely lethargic and drowsy. He was alert and oriented 3 but reported that he is very tired and does not want to be disturbed. On asking multiple times he reported that he has been feeling pain all day long. He has a home health aid, who called EMS. He reported he did not lose consciousness however does not remember episodes of seizures. he did not have episode of urinary or fecal incontinence. He does not report tongue bite however there are bite ureña on his lips. He reports that he was diagnosed with seizures in 2013 and has been compliant with his medication KEPPRA 500 twice a day. He does not remember if he took the medication this evening or not. Review of system he reports headache. Denies chest pain shortness of breath or abdominal symptoms. Patient reports that he did not take anything for pain As per ED documentation patient had 2 episodes of tonic-clonic seizures in the field half an hour apart. He received 5 mg IM midazolam. In route patient's oxygen saturation dropped to 70s and 80's. He was started on assisted respirations with the bag and his oxygen is saturation increased to 100s. Patient had 2 episodes of tonic-clonic seizure in ED lasting less than 1 minute. He received 2 mg IV Ativan and 500 mg Keppra IV Infusion. He was started on BiPAP for some time however he took himself off it and during my encounter was on 4 L satting at 96% Allergies/Medications Allergies: Coded Allergies: Iodinated Contrast- Oral and IV Dye (UNKNOWN PER PT 08/05/17) Penicillins (UNKNOWN PER PT 08/05/17) bacitracin (PER PT EYE OINTMENT -DOES NOT REMEMBER REACTION 05/05/17) Home Med list Acetaminophen (Tylenol Extra Strength) 500 MG TABLET 1 TAB PO BID PRN Knee pain/fracture Amlodipine (Norvasc) 2.5 MG TABLET 1 TAB PO DAILY HEART (Reported) Aspirin (Ecotrin*) 81 MG TABLET.DR 1 TAB PO DAILY Heart Escitalopram Oxalate (Lexapro) 20 MG TABLET 1 TAB PO DAILY DEPRESSION ( Reported) Famotidine 20 MG TABLET 1 TAB PO DAILY GI (Reported) Levetiracetam (Keppra) 500 MG TABLET 1 TAB PO BID SEIZURES (Reported) Levothyroxine Sodium 125 MCG TABLET 1 TAB PO DAILY AC THYROID (Reported) Linaclotide (Linzess) 290 MCG CAPSULE 1 CAP PO DAILY BOWEL (Reported) Lisinopril (Prinivil) 5 MG TABLET 1 TAB PO DAILY BP (Reported) Melatonin 3 MG TABLET 1 TAB PO QPM SUPPLEMENT (Reported) Multiple Vitamin (Multivitamins) 1 EACH TABLET 1 TAB PO DAILY SUPPLEMENT ( Reported) Sennosides (Senna) 8.6 MG TABLET 2 TAB PO BID GI (Reported) Simvastatin (Zocor*) 20 MG TABLET 1 TAB PO QPM CHOLESTEROL (Reported) Tamsulosin HCl (Flomax) 0.4 MG CAP.ER.24H 2 CAP PO DAILY PROSTATE (Reported) Zolpidem Tartrate 5 MG TABLET 1 TAB PO QPM SLEEP (Reported) Past History Travel History Traveled to [place] past 21 day No Medical History Neurological: seizure, CVA-L SIDED PARLAYSIS (2007) EENT: NONE Cardiovascular: hypertension, hyperlipidemia, PVD, VSD Respiratory: NONE Gastrointestinal: NONE Hepatic: NONE Renal: NONE Musculoskeletal: NONE Psychiatric: NONE Endocrine: hypothyroidism Blood Disorders: DVT Cancer(s): NONE BUSINESS SYSTEMS ARCHITECT/Reproductive: NONE History of MRSA: No History of VRE: No History of CDIFF: No Surgical History Surgical History: L HIP FX REPAIR CHOLECYSTECTOMY Past Family/Social History Family History Relations & Conditions if any FATHER (PVD, Lung Cancer). . MOTHER (DM, Breast Ca, Stroke). . Psychosocial History Where do you live? Home Who Do You Live With? self Services at Home: Home Health Aide, Nursing Functional Ability Ambulation: walker Review of Systems Review of Systems Constitutional: Reports: see HPI. Exam & Diagnostic Data Last 24 Hrs of Vital Signs/I&O Vital Signs Date Time Temp Pulse Resp B/P B/P Pulse O2 O2 Flow FiO2 Mean Ox Delivery Rate 11/28 2230 98.8 101 20 122/83 95 Nasal 4.0L Cannula 11/28 2220 94 Nasal 4.0L Cannula 11/28 2112 99 BIPAP 50% 11/28 2104 97.8 110 24 134/81 100 BIPAP 50% 11/28 1950 98 11/28 1909 100 100% 11/28 190 98.0 126 26 115/71 82 Room Air Physical Exam General Appearance Alert, Oriented X3, lethargic, drowsy HEENT Atraumatic, pupils dialted reactive to light Neck Supple Cardiovascular Normal S1, Normal S2 Lungs Clear to Auscultation, Normal Air Movement Abdomen Normal Bowel Sounds, Soft, No Tenderness Neurological lerthargic decreased strength left side chronic Last 24 Hrs of Labs/Santosh: Laboratory Tests 11/28/171914: Anion Gap 25 H, Estimated GFR 55 L, BUN/Creatinine Ratio 8.5, Glucose 150 H, Calcium 9.3, Magnesium 2.2, Total Bilirubin 1.3, AST 27, ALT 19 L, Alkaline Phosphatase 87, Troponin I < 0.01, Total Protein 7.4, Albumin 4.3, Globulin 3.1, Albumin/Globulin Ratio 1.4, Prolactin 33.8 H, PT 23.1 H, INR 2.10 H, CBC w Diff NO MAN DIFF REQ, RBC 4.84, MCV 93.2, MCH 30.8, MCHC 33.1, RDW 13.1, MPV 7.6 , Gran % 68.0, Lymphocytes % 26.0, Monocytes % 5.2, Eosinophils % 0.6, Basophils % 0.2, Absolute Granulocytes 9.6 H, Absolute Lymphocytes 3.7 H, Absolute Monocytes 0.7 H, Absolute Eosinophils 0.1, Absolute Basophils 0, Serum Alcohol < 10.0 Microbiology 11/29 2343 URINE ROUT: Urine Culture - ORD 11/29 2343 BLOOD: Blood Culture - COLB 11/29 2343 BLOOD: Blood Culture - COLB Diagnostic Data EKG Results Sinus rhythm with nonspecific ST-Tchanges CXR Results Poorly expanded lungs. No acute intrathoracic disease. Other Results CT head: No acute intracranial abnormality. Chronic large right MCA infarction with additional smaller chronic infarction in the left lateral cerebellum. CT cervical spine: No cervical spine fracture or malalignment. Advanced multilevel degenerative spondylotic changes without high-grade spinal canal stenosis. 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 The patient presented to [facility] ED with complaint of tonic-clonic seizures and unresponsivenes. Admission vital afebrile,BP 105/71, tachycardic 126, respiratory rate 26 oxygen saturation 82% on room air Admission labs are significant for leukocytosis anion gap metabolic acidosis creatinine 1.3 glucose 150. Prolactin 33.8 Imaging findings dictated above The patient is being admitted to ICU for treatment and evaluation of following conditions #Seizure disorder and altered mental status Patient reports history of seizure disorder diagnosed in 2013 and he has been on Keppra 500 mg twice a day ever since. Today patient had 4 episodes of tonic- clonic seizures. He received 5 mg IM midazolam the field and 2 milligrams IV Ativan in ED and 500 mg IV infusion of Keppra. He was hypoxic on presentation and was on BiPAP for an hour or so. Patient does have leukocytosis however is afebrile chest x-ray does not show any sign of infection he's alert oriented 3 so meningitis is less likely. U tox might be able to give some information. Other possiblity can be noncompliance with medication -Admit to ICU -Q1 vitals, neurochecks, [place] Coma Scale -Nothing by mouth -Seizure precautions -Aspiration precautions -U tox to rule out drug toxicity and withdrawal -Patient did not have an ischemic stroke, cardiac arrest, was not hyperglycemic, no liver dysfuntion noted -Will check an ammonia level -will try to add keppra level to admission labs before infusion of Keppra -UA, Urine culture blood culture rule out infection, leukocytosis is most likely reactive to seizures -Patient appeared to be extremely lethargic likely post seizure,but will check an ABG. -I have talked to neurology Dr. Foss will load him with 1000 mg IV Keppra BID , he received 500 in ED, will given 500 mg more right now, next dose will be 1000 mg @ 12pm -EEG -Neuro consult in am -Can use Ativan for control of seizures -The most important aspect is protection of airway. If he is unable to do so the threshold of intubation should be extremely low #Leukocytosis Most likely reactive but will rule out infection -Monitor fever and WBC curve -Monitor off antibiotics -UA, urine culture, blood cultures. Chest x-ray is negative #Anion gap metabolic acidosis Likely secondary to lactic acidosis in setting of seizure. Delta delta gap shows pure Anion gap metabolic acidosis -Will check lactic acid #LALO Patient presented with creatinine of 1.3 BUN is normal. His baseline creatinine is normal. rule out rhabdomylasis 2/2 tonic clonic seizures? -Monitor creatinine closely -will check CK -Avoid nephrotoxins -Normal saline at the rate of 100/h #Please confirm pt's medication list in the morning #As per previous documentation patient has history of DVT and was on warfarin at one point. However it was stopped because of frequent falls. Medication reconciliation shows a recent refill on warfarin. Please confirm in am. I have not ordered DVT prophylaxis. INR is 2 therapeutic if he is on warfarin. I have ordered INR for the morning please dose warfarin accordingly if he is on it. #Nothing by mouth for now #CODE STATUS is full code, patient said do whatever you can to bring me back. Of note on last discharge summary his CODE STATUS was DNR/DNI *pt signout to night team at 12am with pending labs to be followed on As Ranked By This Provider Problem List: 1. Seizure disorder 2. Altered mental state Core Measures/Misc (01/07) Acute Coronary Syndrome ACS Diagnosis: No Congestive Heart Failure Congestive Heart Failure Diagnosis No Cerebrovascular Accident CVA/TIA Diagnosis: Yes VTE (View Protocol) VTE Risk Factors Age>40 No Mechanical VTE Prophylaxis d/t N/A MechProphylax Ordered No VTE Pharm Prophylaxis d/t NA PharmProphylax ordered Comment: on warfarin, dose as per inr Sepsis (View protocol) Sepsis Present: No If YES complete Sepsis Event Note If YES complete Sepsis Event Note
[2017-11-29] VITALS (8 sets, daily range): BP systolic 129–153; BP diastolic 80–92
[2017-11-29 06:03] LABS: ABSOLUTE BASOPHIL COUNT 0 /CUMM (0.0-0.2); ABSOLUTE EOSINOPHIL COUNT 0 /CUMM (0.0-0.7); ABSOLUTE GRANULOCYTE CT 9.4 /CUMM (1.4-6.5); ABSOLUTE LYMPH COUNT 0.7 /CUMM (1.2-3.4); ABSOLUTE MONOCYTE COUNT 0.5 /CUMM (0.10-0.60); BASOPHIL % 0 % (0.0-2.0); EOSINOPHIL % 0.2 % (0-5); GRANULOCYTE % 88.8 % (42.2-75.2); MEAN CORPUSCULAR HGB 31.6 PG (27.0-31.0); MEAN CORPUSCULAR HGB CONC 34.8 G/DL (33.0-37.0); MEAN CORPUSCULAR VOLUME 90.8 FL (80.0-94.0); MEAN PLATELET VOLUME 8.2 FL (7.4-10.4); RBC DISTRIBUTION WIDTH 13.1 % (11.5-14.5); RED BLOOD CELL CT 4.17 /CUMM (4.70-6.10); WHITE BLOOD CELL COUNT 10.6 /CUMM (4.8-10.8)
[2017-11-29 06:08] LABS: PT 24.2 SEC (9.4-12.5)
[2017-11-29 06:18] LABS: HEMATOCRIT 37.9 % (42-52)
[2017-11-29 06:30] LABS: PLATELET COUNT 98 /CUMM (130-400)
--- NOTE | 2017-11-29 07:02 | RADIOLOGY REPORT ---
EXAMINATION: XR PORTABLE CHEST CLINICAL INFORMATION: Seizures. Leukocytosis. Thrombocytopenia. COMPARISON: 11/28/2017 TECHNIQUE: Portable frontal view of the chest was obtained. FINDINGS: Cardiac leads overlie the chest. Lung volumes are low. Bronchovascular crowding. No pleural effusion or pneumothorax. No dense consolidation. The cardiomediastinal silhouette remains prominent. IMPRESSION: Hypoexpanded lungs with bronchovascular crowding. No dense consolidation.
--- NOTE | 2017-11-29 08:05 | Cons- CRCU ---
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 The patient presented to [facility] ED with complaint of tonic- clonic seizures and unresponsivenes. is still extremely lethargic and drowsy. He reported he did not lose consciousness however does not remember episodes of seizures. he did not have episode of urinary or fecal incontinence. He does not report tongue bite however there are bite ureña on his lips. He reports that he was diagnosed with seizures in 2013 and has been compliant with his medication KEPPRA 500 twice a day. He does not remember if he took the medication on the day of admission. However he reports being compliant with his medication in general. She also denies any recent changes to his medications. His medication list was confirmed with [facility]. In addition the patient also complains of severe right hip pain at the time of the encounter. He reports history of left hip fracture a few years ago. Patient denies any falls or injury to the right hip. X-ray showed deformity of the neck of the right femur for further evaluation by noncontrast C review of system he reports weakness and lethargy in addition to localized chronic neurological deficit on the left side of his body. Denies any headache or blurring of vision, chest pain, abdominal pain, nausea, vomiting or diarrhea. As per ED documentation patient had 2 episodes of tonic-clonic seizures in the field half an hour apart. He received 5 mg IM midazolam. In route patient's oxygen saturation dropped to 70s and 80's. He was started on assisted respirations with the bag and his oxygen is saturation increased to 100s. Patient had 2 episodes of tonic-clonic seizure in ED lasting less than 1 minute. He received 2 mg IV Ativan and 500 mg Keppra IV Infusion. He was started on BiPAP for some time however he took himself off it and during my encounter was on 4 L satting at 96%. This morning patient had a brief episode of seizure which lasted around 1 minute and resolved spontaneously. Patient did not lose consciousness or had any urinary or bowel incontinence or tongue biting during this episode. Allergies/Medications Allergies: Coded Allergies: Iodinated Contrast- Oral and IV Dye (UNKNOWN PER PT 08/05/17) Penicillins (UNKNOWN PER PT 08/05/17) bacitracin (PER PT EYE OINTMENT -DOES NOT REMEMBER REACTION 05/05/17) Home Med List: Acetaminophen (Tylenol Extra Strength) 500 MG TABLET 1 TAB PO BID PRN Knee pain/fracture Amlodipine (Norvasc) 2.5 MG TABLET 1 TAB PO DAILY HEART (Reported) Aspirin (Ecotrin*) 81 MG TABLET.DR 1 TAB PO DAILY Heart Escitalopram Oxalate (Lexapro) 20 MG TABLET 1 TAB PO DAILY DEPRESSION ( Reported) Famotidine 20 MG TABLET 1 TAB PO DAILY GI (Reported) Levetiracetam (Keppra) 500 MG TABLET 1 TAB PO BID SEIZURES (Reported) Levothyroxine Sodium 125 MCG TABLET 1 TAB PO DAILY AC THYROID (Reported) Linaclotide (Linzess) 290 MCG CAPSULE 1 CAP PO DAILY BOWEL (Reported) Lisinopril (Prinivil) 5 MG TABLET 1 TAB PO DAILY BP (Reported) Melatonin 3 MG TABLET 1 TAB PO QPM SUPPLEMENT (Reported) Multiple Vitamin (Multivitamins) 1 EACH TABLET 1 TAB PO DAILY SUPPLEMENT ( Reported) Sennosides (Senna) 8.6 MG TABLET 2 TAB PO BID GI (Reported) Simvastatin (Zocor*) 20 MG TABLET 1 TAB PO QPM CHOLESTEROL (Reported) Tamsulosin HCl (Flomax) 0.4 MG CAP.ER.24H 2 CAP PO DAILY PROSTATE (Reported) Zolpidem Tartrate 5 MG TABLET 1 TAB PO QPM SLEEP (Reported) Current Medications: Current Medications Sig/Miladis Start time Last Medication Dose Route Stop Time Status Admin Acetaminophen 0 .STK-MED ONE 11/29 936 DC IV Acetaminophen 1,000 MG Q6P PRN 11/29 0815 AC 11/29 N/A 1 UNIT IV 36 Acetaminophen 0 .STK-MED ONE 11/281 DC IV Acetaminophen 1,000 MG ONCE ONE 11/28 2230 DC 11/28 IV 11/28 2231 2242 Levetiracetam 1,000 MG ONCE ONE 11/29 1200 AC N/A 1 UNIT IV 11/29 1214 Levetiracetam 500 MG ONCE ONE 11/28 2345 DC 11/29 N/A 1 UNIT IV 11/28 2359 0030 Levetiracetam 500 MG ONCE ONE 11/28 1945 DC 11/28 N/A 1 UNIT IV 11/28 Lidocaine 1 PAT DAILY 11/29 899 AC 11/29 EXT 0737 Lorazepam 1 MG ONCE ONE 11/29 929 DC 11/29 IV 11/29 930 0932 Lorazepam 0 .STK-MED ONE 11/29 921 DC .ROUTE Lorazepam 2 MG ONCE ONE 11/28 194 DC 11/28 IV 11/28 1945 1937 Lorazepam 0 .STK-MED ONE 11/28 193 DC .ROUTE Oxycodone HCl 5 MG ONCE ONE 11/29 0200 DC 11/29 PO 11/29 0201 0307 Oxycodone HCl 5 MG ONCE ONE 11/29 0015 CAN PO 11/29 0016 Sodium Chloride 1,000 ML Q10H 11/28 234 AC 11/29 IV 0307 Warfarin Sodium 7.5 MG COUMADIN 1700 ONE 11/29 1700 CAN PO 11/29 1701 Review of Systems Review of Systems Constitutional: Reports: malaise, weakness. Cardiovascular: Denies: no symptoms. Respiratory: Denies: no symptoms. GI: Denies: no symptoms. Neurological/Psychological: Reports: pre-existing deficit, tonic-clonic seizures, weakness. 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 . MOTHER (DM, Breast Ca, Stroke). . Psychosocial History Where Do You Live? Home Who Do You Live With? self Services at Home: Home Health Aide, Nursing Smoking Status: Never Smoked Functional Ability Ambulation: walker Exam & Diagnostic Data Last 24 Hrs of Vital Signs/I&O Vital Signs Date Time Temp Pulse Resp B/P B/P Pulse O2 O2 Flow FiO2 Mean Ox Delivery Rate 11/29 06 97.6 88 24 147/84 11/29 0400 87 20 129/84 11/29 0400 93 Nasal 4.0L Cannula 11/29 0312 99.6 90 22 130/80 11/29 0312 93 Nasal 4.0L Cannula 11/29 0120 99.6 90 22 130/80 93 Nasal 4.0L Cannula 11/29 0100 97.5 98 24 140/91 95 Nasal 4.0L Cannula 11/28 2231 98.8 101 20 122/83 95 Nasal 4.0L Cannula 11/28 2221 94 Nasal 4.0L Cannula 11/28 2113 99 BIPAP 50% 11/28 2105 97.8 110 24 134/81 100 BIPAP 50% 11/28 1950 98 11/28 1910 100 100% 11/28 1907 98.0 126 26 115/71 82 Room Air Intake & Output 11/29 1600 11/29 0800 11/29 0000 Intake Total 300 Output Total Balance 300 Intake, IV 200 Intake, Oral 100 Patient 213 lb Weight Weight Bed scale Measurement Method Physical Exam General Appearance: sedated, lethargic Head: atraumatic Eyes: Bilateral: normal appearance, PERRL, EOMI, other (horizontal nystagmus). Neck: normal inspection, supple Respiratory: normal breath sounds, chest non-tender Cardiovascular: regular rate/rhythm Extremities: normal inspection Neurologic/Psych: alert, oriented x 3, motor/sensory deficits, chronic left sided hemiparesis due to CVA Last 48 Hrs of Labs/Santosh: Laboratory Tests 11/29/17 1045: Levetiracetam Pending 11/29/17 0530: Urine Opiates Screen < 100, Methadone Screen 48, Barbiturate Screen < 60, Ur Phencyclidine Scrn < 6.00, Amphetamines Screen < 100, U Benzodiazepines Scrn > 800 H, Urine Cocaine Screen < 50, Urine Cannabis Screen < 5.00, Urine Color YEL , Urine Clarity CLEAR, Urine pH 5.5, Ur Specific [place] >= 1.030, Urine Protein 30 H, Urine Ketones TRACE H, Urine Nitrite NEG, Urine Bilirubin NEG, Urine Urobilinogen 0.2, Ur Leukocyte Esterase NEG, Ur Microscopic SEDIMENT EXAMINED, Urine WBC RARE, Ur Epithelial Cells MOD H, Urine Crystals 1+ UR AC H, Urine Bacteria FEW H, Urine Hemoglobin NEG, Urine Glucose NEG 11/29/17 0500: Anion Gap 7, Estimated GFR > 60, Glucose 124 H, Calcium 8.4, Phosphorus 2.9, Magnesium 2.1, Total Bilirubin 2.3 H, AST 27, ALT 32, Albumin 3.3 L, TSH 0.975 , Free T4 0.99, PT 24.2 H, INR 2.20 H, CBC w Diff MAN DIFF ORDERED, RBC 4.17 L, MCV 90.8, MCH 31.6 H, MCHC 34.8, RDW 13.1, MPV 8.2, Gran % 88.8 H, Lymphocytes % 6.3 L, Monocytes % 4.7, Eosinophils % 0.2, Basophils % 0, Absolute Granulocytes 9.4 H, Segmented Neutrophils 87 H, Band Neutrophils 2, Absolute Lymphocytes 0.7 L, Lymphocytes 8 L, Monocytes 2, Absolute Monocytes 0.5, Eosinophils 1, Absolute Eosinophils 0, Absolute Basophils 0, Nucleated RBCs 1 H, Platelet Estimate DECREASED, Normochromic RBCs VERIFIED, Poikilocytosis 1+ , Ovalocytes 1+, Fld Total RBCs Counted 100, Levetiracetam Cancelled 11/29/17 0230: Lactic Acid 1.3 11/29/17 0230: Ammonia < 9 L 11/29/17 0100: pH 7.47 H, pCO2 29 L, pO2 72 L, HCO3 20 L, ABG O2 Sat (Measured) 95.0 L, P- 50 (Temp Corrected) N, Carboxyhemoglobin 0.1 L, O2 Concentration % 4L, O2 Delivery Method N/C, Phlebotomy Draw Site RIGHT RADIAL 11/28/171914: Anion Gap 25 H, Estimated GFR 55 L, BUN/Creatinine Ratio 8.5, Glucose 150 H, Calcium 9.3, Magnesium 2.2, Total Bilirubin 1.3, AST 27, ALT 19 L, Alkaline Phosphatase 87, Creatine Kinase 192 H, Troponin I < 0.01, Total Protein 7.4, Albumin 4.3, Globulin 3.1, Albumin/Globulin Ratio 1.4, Prolactin 33.8 H, PT 23.1 H, INR 2.10 H, CBC w Diff NO MAN DIFF REQ, RBC 4.84, MCV 93.2, MCH 30.8, MCHC 33.1, RDW 13.1, MPV 7.6, Gran % 68.0, Lymphocytes % 26.0, Monocytes % 5.2, Eosinophils % 0.6, Basophils % 0.2, Absolute Granulocytes 9.6 H, Absolute Lymphocytes 3.7 H, Absolute Monocytes 0.7 H, Absolute Eosinophils 0.1, Absolute Basophils 0, Serum Alcohol < 10.0 Diagnostic Data CXR Results Hypoexpanded lungs with bronchovascular crowding. No dense consolidation. 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 The patient presented to [facility] ED with complaint of tonic-clonic seizures and unresponsivenes. He reports that he was diagnosed with seizures in 2013 and has been compliant with his medication KEPPRA 500 twice a day. He does not remember if he took the medication on the day of admission. However he reports being compliant with his medication in general. She also denies any recent changes to his medications. His medication list was confirmed with [facility]. Differential diagnosis includes noncompliance with his medication, medication interaction, structure pain changes as a complication of old stroke. Possible focal lesion including brain tumor. Last MRI was back in 2013 and only showed large old right MCA territory infarct with no features of brain neoplasm. Assessment: Continue to monitor in ICU for the following condition: #Recurrent seizure : (was diagnosed in 2013, patient was treated by Keppra 500 twice daily, reports compliance with his medication and denies any recent changes to his medication) U tox was positive for benzos however the patient received 5 mg IM midazolam and Ativan in the ED. we will check Keppra level in the blood sample from admission to rule out noncompliance or subtherapeutic dose of Keppra Neurology consult appreciate Keppra IV twice daily loading dose of 1000 mg. He received 1000 mg last night, would be receiving another 1000 mg at 12 PM today. Seizure and aspiration precautions Keep n.p.o. Vitals q. one hour Neurochecks EEG and MRI after discussion with neurology #right hip pain: Most likely due to muscle spasm IV Tylenol as needed for pain Baclofen for muscle spasm (x-ray showed femoral neck deformity for further evaluation by CT) #Acute hypoxia: on admission pulse ox was 82 most likely was secondary to the seizure activity, improved with nasal oxygen, currently his pulse ox is 93 on 4 L oxygen #Leukocytosis: On admission WBC was 14.1, bands 2, segmented neutrophils 87. This morning it trended down to 10.6. T-max 100. Chest x-ray did not show any evidence of chest infection or aspiration. Could be stress induced or due to seizure Continue to monitor CBCs Follow-up on pending cultures #LALO: On admission creatinine was 1.3, baseline creatinine 0.9, it improved this morning to 1.2. Most likely prerenal due to dehydration but still can be secondary to renal injury due to muscle damage with increased CK. Continue gentle IV fluid hydration with normal saline Avoid nephrotoxic Monitor kidney functions # Hyperbilirubinemia : On admission his bilirubin was 2.4, LFTs normal. Reviewing the patient's chart showed that he had similar episodes during previous admissions Note from Dr. West back in 2013 suggested that the patient might have Gilbert disease Currently the patient is n.p.o. which might have triggered this hyperbilirubinemia Continue to follow functions We will check direct bilirubin, LDH, #history of DVT on Coumadin His INR was 2.2 Will dose Coumadin 7.5 today #history of old right MCA territory infarct with residual left-sided weakness #history of chronic medical conditions including hypertension, hyperlipidemia, BPH, hypothyroidism: We will continue his home meds Full code DVT prophylaxis with Coumadin N.p.o. Consult Acknowledgment - Thank you for your consult request. 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
--- NOTE | 2017-11-29 08:50 | RADIOLOGY REPORT ---
EXAMINATION: XR HIP, RIGHT CLINICAL INFORMATION: 67-year-old male with the right hip pain following seizure. Suspected fracture. COMPARISON: CT of the abdomen and pelvis done on 06/21/2017. TECHNIQUE: Portable 2 views of the right hip. FINDINGS: There is a deformity identified in the region of the neck of the right femur. This could be related to positioning or underlying fracture. The lateral view of the right hip is technically suboptimal due to underexposure. Follow-up noncontrast CT scan of the right hip may be considered for further clarification. IMPRESSION: Deformity in the region of the neck of the right femur, seen only on the frontal projection. The lateral radiograph is technically limited. Follow-up noncontrast CT of the right hip may be considered for further clarification.
--- NOTE | 2017-11-29 12:17 | Admission Certification ---
Admission Certification Certification Statement - As attending physician, I certify that at the time of - admission, based on clinical presentation, severity of - symptoms, need for further diagnostic testing and - therapeutic interventions, and risk of adverse outcomes - without in-hospital treatment, in my clinical assessment, - this patient requires an acute hospital stay for a minimum - of two nights or longer. I have also considered psychsocial - factors such as support system, advanced age, financial - issues, cognitive issues, and failed out-patient treatments, - past re-admission history, safety of patient, and lack of - compliance as applicable. Specific rationale supporting this admission is: Recurrent seizures in a patient with big CVA already on Keppra
--- NOTE | 2017-11-29 12:19 | PN- Att Addend ---
Attending Addendum Attending Brief Note 67-year-old white male with previous history of a CVA and seizures already on Keppra and apparently taking the medication. Was home and was noted by a to have seizures and change in mental status. She called the ambulance and was brought to the emergency room where he continued having seizures off and on for several times even overnight in the hospital. The CAT scan of the head showed no new abnormalities but the chronic stroke. Patient was medicated and finally is free of seizures is a little lethargic. Neurology consultation was obtained, will monitor closely in the intensive care unit. Current Medications Sig/Miladis Start time Last Medication Dose Route Stop Time Status Admin Acetaminophen 0 .STK-MED ONE 11/29 936 DC IV Acetaminophen 1,000 MG Q6P PRN 11/29 914 AC 11/29 N/A 1 UNIT IV 0936 Acetaminophen 0 .STK-MED ONE 11/28 224 DC IV Acetaminophen 1,000 MG ONCE ONE 11/28 2230 DC 11/28 IV 11/28 223 2242 Baclofen 10 MG ONCE ONE 11/29 1145 DC PO 11/29 1146 Levetiracetam 1,000 MG ONCE ONE 11/29 1200 DC N/A 1 UNIT IV 11/29 1214 Levetiracetam 500 MG ONCE ONE 11/28 2345 DC 11/29 N/A 1 UNIT IV 11/28 2359 0030 Levetiracetam 500 MG ONCE ONE 11/28 1945 DC 11/28 N/A 1 UNIT IV 11/28 195 2000 Lidocaine 1 PAT DAILY 11/29 09 AC 11/29 EXT 0737 Lorazepam 1 MG ONCE ONE 11/29 0830 DC 11/29 IV 11/29 0931 0932 Lorazepam 0 .STK-MED ONE 11/29 921 DC .ROUTE Lorazepam 2 MG ONCE ONE 11/28 194 DC 11/28 IV 11/28 194 1937 Lorazepam 0 .STK-MED ONE 11/28 193 DC .ROUTE Oxycodone HCl 5 MG ONCE ONE 11/29 0200 DC 11/29 PO 11/29 0201 0307 Oxycodone HCl 5 MG ONCE ONE 11/29 0015 CAN PO 11/29 0016 Sodium Chloride 1,000 ML Q10H 11/28 2345 AC 11/29 IV 0307 Warfarin Sodium 7.5 MG COUMADIN 1700 ONE 11/29 1700 CAN PO 11/29 170 Warfarin Sodium 7.5 MG COUMADIN 1700 ONE 11/29 1700 AC PO 11/29 170 Laboratory Tests 11/29/17 1045: Levetiracetam Pending 11/29/17 0530: Urine Opiates Screen < 100, Methadone Screen 48, Barbiturate Screen < 60, Ur Phencyclidine Scrn < 6.00, Amphetamines Screen < 100, U Benzodiazepines Scrn > 800 H, Urine Cocaine Screen < 50, Urine Cannabis Screen < 5.00, Urine Color YEL , Urine Clarity CLEAR, Urine pH 5.5, Ur Specific [place] >= 1.030, Urine Protein 30 H, Urine Ketones TRACE H, Urine Nitrite NEG, Urine Bilirubin NEG, Urine Urobilinogen 0.2, Ur Leukocyte Esterase NEG, Ur Microscopic SEDIMENT EXAMINED, Urine WBC RARE, Ur Epithelial Cells MOD H, Urine Crystals 1+ UR AC H, Urine Bacteria FEW H, Urine Hemoglobin NEG, Urine Glucose NEG 11/29/17 0500: Anion Gap 7, Estimated GFR > 60, Glucose 124 H, Calcium 8.4, Phosphorus 2.9, Magnesium 2.1, Total Bilirubin 2.3 H, AST 27, ALT 32, Albumin 3.3 L, TSH 0.975 , Free T4 0.99, PT 24.2 H, INR 2.20 H, CBC w Diff MAN DIFF ORDERED, RBC 4.17 L, MCV 90.8, MCH 31.6 H, MCHC 34.8, RDW 13.1, MPV 8.2, Gran % 88.8 H, Lymphocytes % 6.3 L, Monocytes % 4.7, Eosinophils % 0.2, Basophils % 0, Absolute Granulocytes 9.4 H, Segmented Neutrophils 87 H, Band Neutrophils 2, Absolute Lymphocytes 0.7 L, Lymphocytes 8 L, Monocytes 2, Absolute Monocytes 0.5, Eosinophils 1, Absolute Eosinophils 0, Absolute Basophils 0, Nucleated RBCs 1 H, Platelet Estimate DECREASED, Normochromic RBCs VERIFIED, Poikilocytosis 1+ , Ovalocytes 1+, Fld Total RBCs Counted 100, Levetiracetam Cancelled 11/29/17 0230: Lactic Acid 1.3 11/29/17 0230: Ammonia < 9 L 11/29/17 0100: pH 7.47 H, pCO2 29 L, pO2 72 L, HCO3 20 L, ABG O2 Sat (Measured) 95.0 L, P- 50 (Temp Corrected) N, Carboxyhemoglobin 0.1 L, O2 Concentration % 4L, O2 Delivery Method N/C, Phlebotomy Draw Site RIGHT RADIAL 11/28/171914: Anion Gap 25 H, Estimated GFR 55 L, BUN/Creatinine Ratio 8.5, Glucose 150 H, Calcium 9.3, Magnesium 2.2, Total Bilirubin 1.3, AST 27, ALT 19 L, Alkaline Phosphatase 87, Creatine Kinase 192 H, Troponin I < 0.01, Total Protein 7.4, Albumin 4.3, Globulin 3.1, Albumin/Globulin Ratio 1.4, Prolactin 33.8 H, PT 23.1 H, INR 2.10 H, CBC w Diff NO MAN DIFF REQ, RBC 4.84, MCV 93.2, MCH 30.8, MCHC 33.1, RDW 13.1, MPV 7.6, Gran % 68.0, Lymphocytes % 26.0, Monocytes % 5.2, Eosinophils % 0.6, Basophils % 0.2, Absolute Granulocytes 9.6 H, Absolute Lymphocytes 3.7 H, Absolute Monocytes 0.7 H, Absolute Eosinophils 0.1, Absolute Basophils 0, Serum Alcohol < 10.0 Microbiology Date/Time Procedure - Status Source Growth 11/29 05 Urine Culture - RECD URINE ROUT 11/29 023 Blood Culture - RECD BLOOD 11/29 214 Blood Culture - RECD BLOOD 11/29 144 Surveillance Culture - RECD UPPER RESP 11/29 144 Surveillance Culture - RECD GI Vital Signs Date Time Temp Pulse Resp B/P B/P Pulse O2 O2 Flow FiO2 Mean Ox Delivery Rate 11/29 1143 Nasal 4.0L Cannula 11/30 799 Nasal 5.0L Cannula 11/30 799 100.0 94 22 130/80 93 Nasal 5.0L Cannula 11/29 06 97.6 88 24 147/84
--- NOTE | 2017-11-29 15:12 | Cons- Neurology ---
General Information and HPI Consulting Request Date of Consult: 11/29/17 Requested By: Terri REEVES,Jonny Vogel Reason for Consult: Recurring seizures Source of Information: old records, Resident MD staff Exam Limitations: unable to give history History of Present Illness: This is a 67-year-old man with a CVA in 2007, residual left hemiparesisand gait disorder, onset of seizures in 2013 which have been reportedly under good control on Keppra 500 mg twice daily. Yesterday reportedly had 2 seizures at home, 2 more in ER and one on floor treated with midazolam and given Keppra re-load of 1000 mg. Somnolent since presentation, lactic acidosis and mild elevation of CK, being observed closely for respiratory decline. Spiked fever today. Currently somnolent, arouses briefly, c/o rib and right hip pain, says he ran out of med. Allergies/Medications Allergies: Coded Allergies: Iodinated Contrast- Oral and IV Dye (UNKNOWN PER PT 08/05/17) Penicillins (UNKNOWN PER PT 08/05/17) bacitracin (PER PT EYE OINTMENT -DOES NOT REMEMBER REACTION 05/05/17) Home Med List: Acetaminophen (Tylenol Extra Strength) 500 MG TABLET 1 TAB PO BID PRN Knee pain/fracture Amlodipine (Norvasc) 2.5 MG TABLET 1 TAB PO DAILY HEART (Reported) Aspirin (Ecotrin*) 81 MG TABLET.DR 1 TAB PO DAILY Heart Escitalopram Oxalate (Lexapro) 20 MG TABLET 1 TAB PO DAILY DEPRESSION ( Reported) Famotidine 20 MG TABLET 1 TAB PO DAILY GI (Reported) Levetiracetam (Keppra) 500 MG TABLET 1 TAB PO BID SEIZURES (Reported) Levothyroxine Sodium 125 MCG TABLET 1 TAB PO DAILY AC THYROID (Reported) Linaclotide (Linzess) 290 MCG CAPSULE 1 CAP PO DAILY BOWEL (Reported) Lisinopril (Prinivil) 5 MG TABLET 1 TAB PO DAILY BP (Reported) Melatonin 3 MG TABLET 1 TAB PO QPM SUPPLEMENT (Reported) Multiple Vitamin (Multivitamins) 1 EACH TABLET 1 TAB PO DAILY SUPPLEMENT ( Reported) Sennosides (Senna) 8.6 MG TABLET 2 TAB PO BID GI (Reported) Simvastatin (Zocor*) 20 MG TABLET 1 TAB PO QPM CHOLESTEROL (Reported) Tamsulosin HCl (Flomax) 0.4 MG CAP.ER.24H 2 CAP PO DAILY PROSTATE (Reported) Zolpidem Tartrate 5 MG TABLET 1 TAB PO QPM SLEEP (Reported) Current Medications: Current Medications Sig/Miladis Start time Last Medication Dose Route Stop Time Status Admin Acetaminophen 0 .STK-MED ONE 11/29 936 DC IV Acetaminophen 1,000 MG Q6P PRN 11/29 0815 AC 11/29 N/A 1 UNIT IV 0936 Acetaminophen 0 .STK-MED ONE 11/28 2241 DC IV Acetaminophen 1,000 MG ONCE ONE 11/28 2230 DC 11/28 IV 11/28 2231 2242 Baclofen 10 MG ONCE ONE 11/29 1145 DC 11/29 PO 11/29 1146 1339 Levetiracetam 1,000 MG ONCE ONE 11/29 1200 DC 11/29 N/A 1 UNIT IV 11/29 1214 1217 Levetiracetam 500 MG ONCE ONE 11/28 2345 DC 11/29 N/A 1 UNIT IV 11/28 2359 0030 Levetiracetam 500 MG ONCE ONE 11/28 1945 DC 11/28 N/A 1 UNIT IV 11/28 195 2000 Lidocaine 1 PAT DAILY 11/29 899 AC 11/29 EXT 0737 Lorazepam 1 MG ONCE ONE 11/29 0930 DC 11/29 IV 11/29 0931 0932 Lorazepam 0 .STK-MED ONE 11/29 921 DC .ROUTE Lorazepam 2 MG ONCE ONE 11/28 194 DC 11/28 IV 11/28 1946 1937 Lorazepam 0 .STK-MED ONE 11/28 1938 DC .ROUTE Oxycodone HCl 5 MG ONCE ONE 11/29 0200 DC 11/29 PO 11/29 0201 0307 Oxycodone HCl 5 MG ONCE ONE 11/29 0015 CAN PO 11/29 0016 Sodium Chloride 1,000 ML Q10H 11/28 2345 AC 11/29 IV 1339 Warfarin Sodium 7.5 MG COUMADIN 1700 ONE 11/29 1700 CAN PO 11/29 1701 Warfarin Sodium 7.5 MG COUMADIN 1700 ONE 11/29 1700 AC PO 11/29 1701 Review of Systems Review of Systems: limited, as per HPI Past History Travel History Traveled to [place] past 21 day No Medical History Neurological: seizure, CVA-L SIDED PARLAYSIS (2007) EENT: NONE Cardiovascular: hypertension, hyperlipidemia, PVD, VSD Respiratory: NONE Gastrointestinal: NONE Hepatic: NONE Renal: NONE Musculoskeletal: NONE Psychiatric: NONE Endocrine: hypothyroidism Blood Disorders: DVT Cancer(s): NONE 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 . MOTHER (DM, Breast Ca, Stroke). . Psychosocial History Where Do You Live? Home Who Do You Live With? self Services at Home: Home Health Aide, Nursing Smoking Status: Never Smoked Functional Ability Ambulation: walker Exam & Diagnostic Data Vital Signs and I&O Vital Signs Date Time Temp Pulse Resp B/P B/P Pulse O2 O2 Flow FiO2 Mean Ox Delivery Rate 11/29 1200 Nasal 4.0L Cannula 11/29 1143 Nasal 4.0L Cannula 11/30 799 Nasal 5.0L Cannula 11/30 799 100.0 94 22 130/80 93 Nasal 5.0L Cannula 11/29 0600 97.6 88 24 147/84 11/29 0400 87 20 129/84 11/29 0400 93 Nasal 4.0L Cannula 11/29 0312 99.6 90 22 130/80 11/29 0312 93 Nasal 4.0L Cannula 11/29 0120 99.6 90 22 130/80 93 Nasal 4.0L Cannula 11/29 0100 97.5 98 24 140/91 95 Nasal 4.0L Cannula 11/28 2231 98.8 101 20 122/83 95 Nasal 4.0L Cannula 11/28 2221 94 Nasal 4.0L Cannula 11/28 2113 99 BIPAP 50% 11/28 2104 97.8 110 24 134/81 100 BIPAP 50% 11/28 1950 98 11/28 1910 100 100% 11/28 1907 98.0 126 26 115/71 82 Room Air Intake & Output 11/29 1600 11/29 0800 11/29 0000 Intake Total 1126 300 Output Total Balance 1126 300 Intake, IV 1006 200 Intake, Oral 120 100 Patient 213 lb Weight Weight Bed scale Measurement Method Physical Exam: Lying silently in bed, slow regular respiration, no apparent distress neck supple tenderness ribs bilat aroused by pain on passive ROM R hip stays awake briefly, says a few words, follows simple commands [id number], EOMI. possible left [place]TER effacement left NLF spastic left hemiparesis intemittent tremor right hand responds to touch bilaterally DTR increased on left with babinski equivocal right babinski Last 48 Hours of Lab Results: Laboratory Tests 11/29 11/29 1045 0530 Toxicology Urine Opiates Screen (>2000 NG/ML) < 100 Methadone Screen (>300 NG/ML) 48 Barbiturate Screen (>200 NG/ML) < 60 Levetiracetam Pending Ur Phencyclidine Scrn (>25 NG/ML) < 6.00 Amphetamines Screen (>1000 NG/ML) < 100 U Benzodiazepines Scrn (>200 NG/ML) > 800 H Urine Cocaine Screen (>300 NG/ML) < 50 Urine Cannabis Screen (>50 NG/ML) < 5.00 Urines Urine Color (YEL,AMB,STR) YEL Urine Clarity (CLEAR) CLEAR Urine pH (5.0 - 8.0) 5.5 Ur Specific [place] (1.001 - 1.035) >= 1.030 Urine Protein (NEG,<30 MG/DL) 30 H Urine Ketones (NEG) TRACE H Urine Nitrite (NEG) NEG Urine Bilirubin (NEG) NEG Urine Urobilinogen (0.1 - 1.0 EU/dl) 0.2 Ur Leukocyte Esterase (NEG) NEG Ur Microscopic SEDIMENT EXAMINED Urine WBC (0 - 2 /HPF) RARE Ur Epithelial Cells (NONE,FEW) MOD H Urine Crystals 1+ UR AC H Urine Bacteria (NEG/NONE) FEW H Urine Hemoglobin (NEG) NEG Urine Glucose (N MG/DL) NEG 11/29 11/29 11/29 0500 0230 0230 Chemistry Sodium (137 - 145 mmol/L) 140 Potassium (3.5 - 5.1 mmol/L) 4.5 Chloride (98 - 107 mmol/L) 108 H Carbon Dioxide (22 - 30 mmol/L) 25 Anion Gap (5 - 16) 7 BUN (9 - 20 mg/dL) 15 Creatinine (0.7 - 1.2 mg/dL) 1.2 Estimated GFR (>60 ml/min) > 60 Glucose (65 - 99 mg/dL) 124 H Lactic Acid (0.7 - 2.1 mmol/L) 1.3 Calcium (8.4 - 10.2 mg/dL) 8.4 Phosphorus (2.5 - 4.5 mg/dL) 2.9 Magnesium (1.6 - 2.3 mg/dL) 2.1 Total Bilirubin (0.2 - 1.3 mg/dL) 2.3 H AST (17 - 59 U/L) 27 ALT (21 - 72 U/L) 32 Ammonia (9 - 30 umol/L) < 9 L Albumin (3.5 - 5.0 g/dL) 3.3 L TSH (0.270 - 4.200 uIU/mL) 0.975 Free T4 (0.78 - 2.44 ng/dL) 0.99 Coagulation PT (9.4 - 12.5 SEC) 24.2 H INR (0.90 - 1.17) 2.20 H Hematology CBC w Diff MAN DIFF ORDERED WBC (4.8 - 10.8 /CUMM) 10.6 RBC (4.70 - 6.10 /CUMM) 4.17 L Hgb (14.0 - 18.0 G/DL) 13.2 L Hct (42 - 52 %) 37.9 L MCV (80.0 - 94.0 FL) 90.8 MCH (27.0 - 31.0 PG) 31.6 H MCHC (33.0 - 37.0 G/DL) 34.8 RDW (11.5 - 14.5 %) 13.1 Plt Count (130 - 400 /CUMM) 98 L MPV (7.4 - 10.4 FL) 8.2 Gran % (42.2 - 75.2 %) 88.8 H Lymphocytes % (20.5 - 51.1 %) 6.3 L Monocytes % (1.7 - 9.3 %) 4.7 Eosinophils % (0 - 5 %) 0.2 Basophils % (0.0 - 2.0 %) 0 Absolute Granulocytes (1.4 - 6.5 /CUMM) 9.4 H Segmented Neutrophils (42.2 - 75.2 %) 87 H Band Neutrophils (0.0 - 5.0 %) 2 Absolute Lymphocytes (1.2 - 3.4 /CUMM) 0.7 L Lymphocytes (20.5 - 51.1 %) 8 L Monocytes (1.7 - 9.3 %) 2 Absolute Monocytes (0.10 - 0.60 /CUMM) 0.5 Eosinophils (0 - 5.0 %) 1 Absolute Eosinophils (0.0 - 0.7 /CUMM) 0 Absolute Basophils (0.0 - 0.2 /CUMM) 0 Nucleated RBCs (0.0 - 0.0 /100WBC) 1 H Platelet Estimate (ADEQUATE) DECREASED Normochromic RBCs VERIFIED Poikilocytosis 1+ Ovalocytes 1+ Other Body Source Fld Total RBCs Counted (%) 100 Toxicology Levetiracetam Cancelled 11/29 11/28 010 191 Blood Gas pH (7.35 - 7.45 PH) 7.47 H pCO2 (35 - 45 TORR) 29 L pO2 (80 - 100 TORR) 72 L HCO3 (21 - 28 MEQ/L) 20 L ABG O2 Sat (Measured) (>96.0 %) 95.0 L P-50 (Temp Corrected) N Carboxyhemoglobin (1.5 - 5.0 %) 0.1 L O2 Concentration % 4L O2 Delivery Method N/C Chemistry Sodium (137 - 145 mmol/L) 142 Potassium (3.5 - 5.1 mmol/L) 3.9 Chloride (98 - 107 mmol/L) 105 Carbon Dioxide (22 - 30 mmol/L) 12 L Anion Gap (5 - 16) 25 H BUN (9 - 20 mg/dL) 11 Creatinine (0.7 - 1.2 mg/dL) 1.3 H Estimated GFR (>60 ml/min) 55 L BUN/Creatinine Ratio (7 - 25 %) 8.5 Glucose (65 - 99 mg/dL) 150 H Calcium (8.4 - 10.2 mg/dL) 9.3 Magnesium (1.6 - 2.3 mg/dL) 2.2 Total Bilirubin (0.2 - 1.3 mg/dL) 1.3 AST (17 - 59 U/L) 27 ALT (21 - 72 U/L) 19 L Alkaline Phosphatase (< 127 U/L) 87 Creatine Kinase (55 - 170 U/L) 192 H Troponin I (<0.11 ng/ml) < 0.01 Total Protein (6.3 - 8.2 g/dL) 7.4 Albumin (3.5 - 5.0 g/dL) 4.3 Globulin (1.9 - 4.2 gm/dL) 3.1 Albumin/Globulin Ratio (1.1 - 2.2 %) 1.4 Prolactin (3.7 - 17.9 ng/mL) 33.8 H Coagulation PT (9.4 - 12.5 SEC) 23.1 H INR (0.90 - 1.17) 2.10 H Hematology CBC w Diff NO MAN DIFF REQ WBC (4.8 - 10.8 /CUMM) 14.1 H RBC (4.70 - 6.10 /CUMM) 4.84 Hgb (14.0 - 18.0 G/DL) 14.9 Hct (42 - 52 %) 45.1 MCV (80.0 - 94.0 FL) 93.2 MCH (27.0 - 31.0 PG) 30.8 MCHC (33.0 - 37.0 G/DL) 33.1 RDW (11.5 - 14.5 %) 13.1 Plt Count (130 - 400 /CUMM) 225 MPV (7.4 - 10.4 FL) 7.6 Gran % (42.2 - 75.2 %) 68.0 Lymphocytes % (20.5 - 51.1 %) 26.0 Monocytes % (1.7 - 9.3 %) 5.2 Eosinophils % (0 - 5 %) 0.6 Basophils % (0.0 - 2.0 %) 0.2 Absolute Granulocytes (1.4 - 6.5 /CUMM) 9.6 H Absolute Lymphocytes (1.2 - 3.4 /CUMM) 3.7 H Absolute Monocytes (0.10 - 0.60 /CUMM) 0.7 H Absolute Eosinophils (0.0 - 0.7 /CUMM) 0.1 Absolute Basophils (0.0 - 0.2 /CUMM) 0 Miscellaneous Phlebotomy Draw Site RIGHT RADIAL Toxicology Serum Alcohol (<10 MG/DL) < 10.0 Imaging/Other Studies: EEG 03/24/14, portable in MICU for new onset seizures: Abnormal due to moderate generalized slowing of the backgrounds and due to periodic sharp slow discharges which appear to originate in the right fronto-central region. CT head: There is redemonstration of chronic right MCA infarct with encephalomalacia and gliosis noted in the right basal ganglia, frontal lobe, insula, and temporal lobe. Additional area of encephalomalacia and gliosis is noted in the left lateral cerebellum. There is no CT evidence of acute large territory infarction. There is no hemorrhage, mass, or extra-axial collection. There is right lateral ventricular ex vacuo dilatation. There is Wallerian degeneration along the right-sided corticospinal tract. There is mild brain parenchymal volume loss and mild small vessel ischemic changes in the cerebral white matter. CXR: IMPRESSION: Hypoexpanded lungs with bronchovascular crowding. No dense consolidation. Assessment/Plan Assessment: Status epilepticus: Breakthrough seizures without full recovery of consciousness, improved after Keppra loading (still one sz this AM) most likely due to non-compliance with meds Encephalopathy: prolonged post-ictal state vs toxic-metabolic encephalopathy from aspiration, relative hypoxemina, new CVA not recognised on CT or on limited bedside exam. Recommendations: EEG MRI r/o new CVA reload Keppra 1000 mg more resume daily dosing, suggest 750 mg BID Consult Acknowledgment - Thank you for your consult request.
--- NOTE | 2017-11-29 16:09 | Event Note ---
Event Note Event Note: Patient was scheduled to get CT of the right hip and MRI brain however he had recurrent seizures which lasted for less than 1 minute. At this moment it is not safe for him to lay down flat in the MRI machine. We will hold off imaging for now to the seizure activity is controlled. Will give him 1000 mg Keppra loading to be followed by 750 p.o. twice daily as per neurology recommendation. Once seizure is controlled with try to obtain this imaging.
--- NOTE | 2017-11-29 16:52 | ELECTROENCEPHALOGRAM REPORT ---
Electroencephalogram Report Electroencephalogram Results Date of service: 11/29/17 Attending MD: Terri REEVES,Jonny Vogel Accredited Pharmacy Technician: Nory Ward EEG Number: [id number] Test Utilizes: 10-20 system, 21 lead 18 channel digital recording Pertinent Hx/Physical/Neuro Findings/Clin Diagnosis: Recurring Seizures Inpatient Medications: Current Medications Sig/Miladis Start time Last Medication Dose Route Stop Time Status Admin Acetaminophen 0 .STK-MED ONE 11/29 0837 DC IV Acetaminophen 1,000 MG Q6P PRN 11/29 0915 AC 11/29 N/A 1 UNIT IV 0936 Acetaminophen 0 .STK-MED ONE 11/28 2241 DC IV Acetaminophen 1,000 MG ONCE ONE 11/28 2230 DC 11/28 IV 11/28 2231 2242 Baclofen 10 MG ONCE ONE 11/29 1145 DC 11/29 PO 11/29 1146 1339 Dextrose/Sodium 1,000 ML Q20H 11/29 1515 AC 11/29 Chloride IV 1629 Levetiracetam 1,000 MG ONCE ONE 11/29 1600 DC 11/29 N/A 1 UNIT IV 11/29 1614 1629 Levetiracetam 1,000 MG ONCE ONE 11/29 1200 DC 11/29 N/A 1 UNIT IV 11/29 1214 1217 Levetiracetam 500 MG ONCE ONE 11/28 2345 DC 11/29 N/A 1 UNIT IV 11/28 2359 0030 Levetiracetam 500 MG ONCE ONE 11/28 1945 DC 11/28 N/A 1 UNIT IV 11/28 195 2000 Lidocaine 1 PAT DAILY 11/29 09 AC 11/29 EXT 0737 Lorazepam 2 MG ONCE ONE 11/29 1615 DC 11/29 IV 11/29 1616 1623 Lorazepam 0 .STK-MED ONE 11/29 1606 DC .ROUTE Lorazepam 1 MG ONCE ONE 11/29 929 DC 11/29 IV 11/29 930 0932 Lorazepam 0 .STK-MED ONE 11/29 921 DC .ROUTE Lorazepam 2 MG ONCE ONE 11/28 194 DC 11/28 IV 11/28 194 193 Lorazepam 0 .STK-MED ONE 11/28 193 DC .ROUTE Oxycodone HCl 5 MG ONCE ONE 11/29 0200 DC 11/29 PO 11/29 200 0307 Oxycodone HCl 5 MG ONCE ONE 11/29 0015 CAN PO 11/29 0016 Sodium Chloride 1,000 ML Q10H 11/28 2345 DC 11/29 IV 1339 Warfarin Sodium 7.5 MG COUMADIN 1700 ONE 11/29 1700 CAN PO 11/29 1701 Warfarin Sodium 7.5 MG COUMADIN 1700 ONE 11/29 170 AC PO 11/29 170 Interpretation: The background is composed of somewhat irregular at 9-10 Hz posterior alpha mixed with frontally dominant beta and AN excess of generalized slower theta frequency activity, all of low to moderate amplitude. At the time Edy 12: 38 hyper rhythmic right hemispheric discharge starting and phase reversing at T4 develops and continues progressively becoming sharper and slower and spreading to the C4 position. Total duration is around 60 seconds. The dietetic technician noted some eye blinking but no other evidence of seizure activity of note there was some hand tremor at other points of the recording with no EEG abnormality associated. Photic adds no additional information Impression: Abnormal due to: 1) electrographic seizure developing in the right temporal region of about 60 seconds duration, only clinical correlate was eye blinking 2) mild to moderate generalized slowing of the background 3) no abnormal EEG activity during episodes of right hand tremor
--- NOTE | 2017-11-29 22:39 | Event Note ---
Event Note Event Note: -Patient had another episode of seizure 10 PM received 1 mg IV Ativan lasted less than 30 seconds. Patient is not alert and appears to be drowsy. Will not give him p.o. at this point. Night dose of 750mg IV heparin infusion has been started. I have also ordered 1 mg as needed Ativan for seizures -Patient is n.p.o. and is becoming hyper euvolemic on his labs. Will shift the fluids from NS to D5 half normal saline -Patient has been spiking fever up to 101. He has been started on ceftriaxone and metronidazole after talking to Dr. Murray for coverage of aspiration pneumonia in setting of recurrent seizure. patient is allergic to penicillins.
[2017-11-30] VITALS (8 sets, daily range): BP systolic 104–150; BP diastolic 62–100
[2017-11-30 04:55] LABS: PT 26.7 SEC (9.4-12.5)
[2017-11-30 04:57] LABS: ABSOLUTE BASOPHIL COUNT 0 /CUMM (0.0-0.2); ABSOLUTE EOSINOPHIL COUNT 0.2 /CUMM (0.0-0.7); ABSOLUTE GRANULOCYTE CT 7.9 /CUMM (1.4-6.5); ABSOLUTE LYMPH COUNT 0.6 /CUMM (1.2-3.4); ABSOLUTE MONOCYTE COUNT 0.5 /CUMM (0.10-0.60); BASOPHIL % 0.3 % (0.0-2.0); EOSINOPHIL % 2.4 % (0-5); GRANULOCYTE % 84.7 % (42.2-75.2); HEMATOCRIT 34.7 % (42-52); MEAN CORPUSCULAR HGB 31.4 PG (27.0-31.0); MEAN CORPUSCULAR HGB CONC 34.6 G/DL (33.0-37.0); MEAN CORPUSCULAR VOLUME 90.7 FL (80.0-94.0); MEAN PLATELET VOLUME 8.2 FL (7.4-10.4); RBC DISTRIBUTION WIDTH 13.5 % (11.5-14.5); RED BLOOD CELL CT 3.83 /CUMM (4.70-6.10); WHITE BLOOD CELL COUNT 9.4 /CUMM (4.8-10.8)
[2017-11-30 05:17] LABS: PLATELET COUNT 97 /CUMM (130-400)
--- NOTE | 2017-11-30 07:24 | PN- Resident CRCU ---
Subjective HPI/CRCU Issues: Recurrent seizure Right hip pain Possible aspiration pneumonia Hyperbilirubinemia (most likely Gilbert's syndrome) History of DVT on Coumadin AK Iimproved 24 Hour Events: Patient was seen and examined, he continues to be lethargic and sedated, T-max and/24 hours of 101.7, he was a started on ceftriaxone and Flagyl for aspiration pneumonia. EEG showed mild to moderate slowing with no abnormal EEG changes during the episode of right hand tremor. Currently on Keppra 750 twice daily he had few episodes of seizure which lasted less than 1 minute and resolved spontaneously. At 4:15 yesterday he had 3 second pause on the monitor. Objective Vital Signs & I&O Last 8 Hrs of Vitals and I&O: Vital Signs Date Time Temp Pulse Resp B/P B/P Pulse O2 O2 Flow FiO2 Mean Ox Delivery Rate 11/30 0600 92 28 120/62 11/30 0400 97.3 99 30 140/100 11/30 0400 94 Nasal 4.0L Cannula 11/30 0200 97 28 150/76 11/30 0000 98.5 102 24 146/90 08 0000 94 Nasal 4.0L Cannula 11/30 0000 98.5 102 24 144/90 94 Nasal 4.0L Cannula 11/29 2200 100.3 109 20 153/91 11/29 2018 100.3 11/29 2000 100.3 109 20 142/92 11/29 2000 92 Nasal 4.0L Cannula 11/29 1911 101.7 11/29 1843 101.7 11/29 1600 100.2 92 22 130/80 11/29 1600 96 Nasal 4.0L Cannula 11/29 1600 100.2 92 22 130/80 96 Nasal 4.0L Cannula 11/29 1200 Nasal 4.0L Cannula 11/29 1143 Nasal 4.0L Cannula Intake & Output 11/30 1600 11/30 0800 11/30 0000 Intake Total 1000 750 Output Total Balance 1000 750 Intake, IV 900 750 Intake, Oral 100 Patient 214 lb Weight Weight Bed scale Measurement Method Exam General Appearance: sedated, lethargic Head: atraumatic, normal appearance Respiratory: normal breath sounds, chest non-tender Cardiovascular: regular rate/rhythm Gastrointestinal: normal bowel sounds, soft Extremities: normal inspection, no edema Current Medications: Current Medications Sig/Miladis Start time Last Medication Dose Route Stop Time Status Admin Acetaminophen 1,000 MG ONCE ONE 11/29 1845 DC N/A 1 UNIT IV 11/29 1859 Acetaminophen 0 .STK-MED ONE 11/29 1844 DC IV Acetaminophen 0 .STK-MED ONE 11/29 0937 DC IV Acetaminophen 1,000 MG Q6P PRN 11/29 0915 AC 11/29 N/A 1 UNIT IV 1843 Baclofen 10 MG ONCE ONE 11/29 1145 DC 11/29 PO 11/29 1146 1339 Ceftriaxone Sodium 1,000 MG 2000 11/29 2000 AC 11/29 IV 2023 Dextrose/Sodium 1,000 ML Q20H 11/29 1515 AC 11/29 Chloride IV 1629 Levetiracetam 750 MG Q12 11/29 2100 AC 11/29 Sodium Chloride 100 ML IV 2148 Levetiracetam 1,000 MG ONCE ONE 11/29 1600 DC 11/29 N/A 1 UNIT IV 11/29 1614 1629 Levetiracetam 1,000 MG ONCE ONE 11/29 1200 DC 11/29 N/A 1 UNIT IV 11/29 1214 1217 Lidocaine 1 PAT DAILY 11/29 0900 AC 11/29 EXT 0737 Lorazepam 1 MG ONCE ONE 11/29 2200 DC 11/29 IV 11/29 2201 2155 Lorazepam 1 MG Q6-PRN PRN 11/29 2200 AC 11/30 IV 0510 Lorazepam 0 .STK-MED ONE 11/29 2153 DC .ROUTE Lorazepam 2 MG ONCE ONE 11/29 1615 DC 11/29 IV 11/29 1616 1623 Lorazepam 0 .STK-MED ONE 11/29 1606 DC .ROUTE Lorazepam 1 MG ONCE ONE 11/29 0930 DC 11/29 IV 11/29 0931 0932 Lorazepam 0 .STK-MED ONE 11/29 0922 DC .ROUTE Metronidazole 500 MG IQ8 11/30 0000 AC 11/30 N/A 1 UNIT IV 0836 Potassium Chloride 10 MEQ ONCE ONE 11/30 0745 DC IV 11/30 0746 Sodium Chloride 1,000 ML Q10H 11/28 2345 DC 11/29 IV 1339 Warfarin Sodium 7.5 MG COUMADIN 1700 ONE 11/30 1700 AC PO 11/30 1701 Warfarin Sodium 7.5 MG COUMADIN 1700 ONE 11/29 1700 CAN PO 11/29 1701 Warfarin Sodium 7.5 MG COUMADIN 1700 ONE 11/29 1700 DC 11/29 PO 11/29 170 1704 Impression/Plan Impression/Problem List Impression: 67-year-old male with PMH of Seizure(on Keppra 500 BID) 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, DVT on Coumadin, HTN, HLD, PVD, BPH, Hypothyroid, GERD, Depression. The patient presented to [place] ED with complaint of tonic-clonic seizures and unresponsivenes. He reports that he was diagnosed with seizures in 2013 and has been compliant with his medication KEPPRA 500 twice a day. He does not remember if he took the medication on the day of admission. However he reports being compliant with his medication in general. She also denies any recent changes to his medications. His medication list was confirmed with [facility], last time he had a refill for all his meds including Keppra and warfarin was on 11/16/17 from [facility]. Differential diagnosis includes noncompliance with his medication, medication interaction, structure brain changes as a complication of old stroke. Possible focal lesion including brain tumor. Last MRI was back in 2013 and only showed large old right MCA territory infarct with no features of brain neoplasm. Assessment: Continue to monitor in ICU for the following condition: #Recurrent seizure : (was diagnosed in 2013, patient was treated by Keppra 500 twice daily, reports compliance with his medication and denies any recent changes to his medication) U tox was positive for benzos however the patient received 5 mg IM midazolam and Ativan in the ED. we will check Keppra level in the blood sample from admission to rule out noncompliance or subtherapeutic dose of Keppra Patient had few seizure episodes in the past 24 hours which lasted less than 1 minute and resolved spontaneously. EEG yesterday showed:1) electrographic seizure developing in the right temporal region of about 60 seconds duration, only clinical correlate was eye blinking 2) mild to moderate generalized slowing of the background 3) no abnormal EEG activity during episodes of right hand tremor Neurology recommendation appreciated Patient received a third loading dose of Keppra 1000 mg yesterday around 5 PM Keppra dose was increased to 750 twice daily as per neurology recommendation loading with Valproic acid 1000 to be followd by 500 BID Seizure and aspiration precautions Keep n.p.o. Vitals q. one hour Neurochecks Follow-up on MRI head pt is low threshold for intubation if he continues to have recurrent seizure #right hip pain: Most likely due to muscle spasm IV Tylenol as needed for pain Baclofen for muscle spasm (x-ray showed femoral neck deformity for further evaluation by CT) Follow-up on CT of the right hip #Acute hypoxia: on admission pulse ox was 82 most likely was secondary to the seizure activity, improved with nasal oxygen, currently his pulse ox is 93 on 4 L oxygen #Possible aspiration pneumonia T-max the past 24 hours was 101.7 On admission WBC was 14.1, bands 2, segmented neutrophils 87. This morning it trended down to9.4. T-max 100. Chest x-ray :Hypoexpanded lungs with bronchovascular crowding. No dense consolidation. Continue ceftriaxone and Flagyl Continue to monitor CBCs CXR today: Follow-up on pending cultures #LALO: Improved On admission creatinine was 1.3, baseline creatinine 0.9, it improved this morning to 1.2. Most likely prerenal due to dehydration but still can be secondary to renal injury due to muscle damage with increased CK. Continue gentle IV fluid hydration with D5 half-normal saline at 50 cc/h Avoid nephrotoxic Monitor kidney functions Indirect Hyperbilirubinemia/ most likely Gilbert syndrome On admission his bilirubin was 2.4, LFTs normal. Reviewing the patient's chart showed that he had similar episodes during previous admissions Note from Dr. West back in 2013 suggested that the patient might have Gilbert disease Currently the patient is n.p.o. which might have triggered this hyperbilirubinemia Continue to monitor bilirubin level We will check direct bilirubin, alkaline phosphatse # Chronic tremors of the right hand: Patient has history of chronic tremors involving the right hand. EEG did not show any increased electrical activity in the brain during these tremors #history of DVT on Coumadin His INR was 2.4 will hold off Coumadin today for thrombocytopenia #history of old right MCA territory infarct with residual left-sided weakness #history of chronic medical conditions including hypertension, hyperlipidemia, BPH, hypothyroidism: We will continue his home meds # Thrombocytopenia Platlete count dropped to the 90Th will hold off Coumadin close monitoring of CBC For updates you can call his sister Dasia [phone] Full code DVT prophylaxis ALPS NPO Problem List: 1. Seizure Pain Ratin Tomorrow's Labs & Rationales: CBC ICU bundle INR Plan DVT/Prophylaxis: mechanical, pharmacological
--- NOTE | 2017-11-30 10:04 | PN- CRCU ---
See Addendum Subjective HPI/Critical Care Issues: Recurrent seizures noted x 2 this am brief generealized seizures for few seconds each Now somnolent Did spike a fever yesterday not tachy Objective Current Medications: Current Medications Sig/Miladis Start time Last Medication Dose Route Stop Time Status Admin Acetaminophen 1,000 MG ONCE ONE 11/29 1845 DC N/A 1 UNIT IV 11/29 1859 Acetaminophen 0 .STK-MED ONE 11/29 1844 DC IV Acetaminophen 1,000 MG Q6P PRN 11/29 0915 AC 11/30 N/A 1 UNIT IV 0859 Baclofen 10 MG ONCE ONE 11/29 1145 DC 11/29 PO 11/29 1146 1339 Ceftriaxone Sodium 1,000 MG 2000 11/29 2000 AC 11/29 IV 2023 Dextrose/Sodium 1,000 ML Q20H 11/29 1515 AC 11/29 Chloride IV 1629 Levetiracetam 750 MG Q12 11/29 2100 AC 11/30 Sodium Chloride 100 ML IV 0859 Levetiracetam 1,000 MG ONCE ONE 11/29 1600 DC 11/29 N/A 1 UNIT IV 11/29 1614 1629 Levetiracetam 1,000 MG ONCE ONE 11/29 1200 DC 11/29 N/A 1 UNIT IV 11/29 1214 1217 Lidocaine 1 PAT DAILY 11/29 0900 DC 11/30 EXT 0859 Lorazepam 1 MG ONCE ONE 11/29 2200 DC 11/29 IV 11/29 2201 2155 Lorazepam 1 MG Q6-PRN PRN 11/29 2200 AC 11/30 IV 0510 Lorazepam 0 .STK-MED ONE 11/29 2153 DC .ROUTE Lorazepam 2 MG ONCE ONE 11/29 1615 DC 11/29 IV 11/29 1616 1623 Lorazepam 0 .STK-MED ONE 11/29 1606 DC .ROUTE Metronidazole 500 MG IQ8 11/30 0000 AC 11/30 N/A 1 UNIT IV 0836 Potassium Chloride 10 MEQ ONCE ONE 11/30 0745 DC IV 11/30 0746 Sodium Chloride 1,000 ML Q10H 11/28 2345 DC 08 IV 1339 Warfarin Sodium 7.5 MG COUMADIN 1700 ONE 11/30 1700 AC PO 11/30 1701 Warfarin Sodium 7.5 MG COUMADIN 1700 ONE 11/29 1700 DC 11/29 PO 11/29 1701 1704 Vital Signs & I&O Last 24 Hrs of Vitals and I&O: Vital Signs Date Time Temp Pulse Resp B/P B/P Pulse O2 O2 Flow FiO2 Mean Ox Delivery Rate 11/30 0600 92 28 120/62 11/30 0400 97.3 99 30 140/100 11/30 0400 94 Nasal 4.0L Cannula 11/30 0200 97 28 150/76 11/30 0000 98.5 102 24 146/90 11/30 0000 94 Nasal 4.0L Cannula 11/30 0000 98.5 102 24 144/90 94 Nasal 4.0L Cannula 11/290 100.3 109 20 153/91 11/29 2017 100.3 11/30 1999 100.3 109 20 142/92 11/30 1999 92 Nasal 4.0L Cannula 11/29 1911 101.7 11/29 1843 101.7 11/29 1600 100.2 92 22 130/80 11/29 1600 96 Nasal 4.0L Cannula 11/29 1600 100.2 92 22 130/80 96 Nasal 4.0L Cannula 11/29 1200 Nasal 4.0L Cannula 11/29 1143 Nasal 4.0L Cannula Intake & Output 11/30 1600 11/30 0800 11/30 0000 Intake Total 1000 750 Output Total Balance 1000 750 Intake, IV 900 750 Intake, Oral 100 Patient 213 lb 214 lb Weight Weight Bed scale Measurement Method Laboratory Tests 11/30 11/29 0323 1045 Chemistry Sodium (137 - 145 mmol/L) 138 Potassium (3.5 - 5.1 mmol/L) 3.9 Chloride (98 - 107 mmol/L) 108 H Carbon Dioxide (22 - 30 mmol/L) 23 Anion Gap (5 - 16) 8 BUN (9 - 20 mg/dL) 14 Creatinine (0.7 - 1.2 mg/dL) 1.0 Estimated GFR (>60 ml/min) > 60 Glucose (65 - 99 mg/dL) 132 H Calcium (8.4 - 10.2 mg/dL) 8.2 L Phosphorus (2.5 - 4.5 mg/dL) 2.3 L Magnesium (1.6 - 2.3 mg/dL) 1.8 Total Bilirubin (0.2 - 1.3 mg/dL) 2.4 H Direct Bilirubin (< 0.4 mg/dL) Pending AST (17 - 59 U/L) 22 ALT (21 - 72 U/L) 29 Alkaline Phosphatase (< 127 U/L) Pending Albumin (3.5 - 5.0 g/dL) 3.0 L Coagulation PT (9.4 - 12.5 SEC) 26.7 H INR (0.90 - 1.17) 2.43 H Hematology CBC w Diff NO MAN DIFF REQ WBC (4.8 - 10.8 /CUMM) 9.4 RBC (4.70 - 6.10 /CUMM) 3.83 L Hgb (14.0 - 18.0 G/DL) 12.0 L Hct (42 - 52 %) 34.7 L MCV (80.0 - 94.0 FL) 90.7 MCH (27.0 - 31.0 PG) 31.4 H MCHC (33.0 - 37.0 G/DL) 34.6 RDW (11.5 - 14.5 %) 13.5 Plt Count (130 - 400 /CUMM) 97 L MPV (7.4 - 10.4 FL) 8.2 Gran % (42.2 - 75.2 %) 84.7 H Lymphocytes % (20.5 - 51.1 %) 6.8 L Monocytes % (1.7 - 9.3 %) 5.8 Eosinophils % (0 - 5 %) 2.4 Basophils % (0.0 - 2.0 %) 0.3 Absolute Granulocytes (1.4 - 6.5 /CUMM) 7.9 H Absolute Lymphocytes (1.2 - 3.4 /CUMM) 0.6 L Absolute Monocytes (0.10 - 0.60 /CUMM) 0.5 Absolute Eosinophils (0.0 - 0.7 /CUMM) 0.2 Absolute Basophils (0.0 - 0.2 /CUMM) 0 Toxicology Levetiracetam Pending 11/29 08 0530 0500 Chemistry Sodium (137 - 145 mmol/L) 140 Potassium (3.5 - 5.1 mmol/L) 4.5 Chloride (98 - 107 mmol/L) 108 H Carbon Dioxide (22 - 30 mmol/L) 25 Anion Gap (5 - 16) 7 BUN (9 - 20 mg/dL) 15 Creatinine (0.7 - 1.2 mg/dL) 1.2 Estimated GFR (>60 ml/min) > 60 Glucose (65 - 99 mg/dL) 124 H Calcium (8.4 - 10.2 mg/dL) 8.4 Phosphorus (2.5 - 4.5 mg/dL) 2.9 Magnesium (1.6 - 2.3 mg/dL) 2.1 Total Bilirubin (0.2 - 1.3 mg/dL) 2.3 H AST (17 - 59 U/L) 27 ALT (21 - 72 U/L) 32 Albumin (3.5 - 5.0 g/dL) 3.3 L TSH (0.270 - 4.200 uIU/mL) 0.975 Free T4 (0.78 - 2.44 ng/dL) 0.99 Coagulation PT (9.4 - 12.5 SEC) 24.2 H INR (0.90 - 1.17) 2.20 H Hematology CBC w Diff MAN DIFF ORDERED WBC (4.8 - 10.8 /CUMM) 10.6 RBC (4.70 - 6.10 /CUMM) 4.17 L Hgb (14.0 - 18.0 G/DL) 13.2 L Hct (42 - 52 %) 37.9 L MCV (80.0 - 94.0 FL) 90.8 MCH (27.0 - 31.0 PG) 31.6 H MCHC (33.0 - 37.0 G/DL) 34.8 RDW (11.5 - 14.5 %) 13.1 Plt Count (130 - 400 /CUMM) 98 L MPV (7.4 - 10.4 FL) 8.2 Gran % (42.2 - 75.2 %) 88.8 H Lymphocytes % (20.5 - 51.1 %) 6.3 L Monocytes % (1.7 - 9.3 %) 4.7 Eosinophils % (0 - 5 %) 0.2 Basophils % (0.0 - 2.0 %) 0 Absolute Granulocytes (1.4 - 6.5 /CUMM) 9.4 H Segmented Neutrophils (42.2 - 75.2 %) 87 H Band Neutrophils (0.0 - 5.0 %) 2 Absolute Lymphocytes (1.2 - 3.4 /CUMM) 0.7 L Lymphocytes (20.5 - 51.1 %) 8 L Monocytes (1.7 - 9.3 %) 2 Absolute Monocytes (0.10 - 0.60 /CUMM) 0.5 Eosinophils (0 - 5.0 %) 1 Absolute Eosinophils (0.0 - 0.7 /CUMM) 0 Absolute Basophils (0.0 - 0.2 /CUMM) 0 Nucleated RBCs (0.0 - 0.0 /100WBC) 1 H Platelet Estimate (ADEQUATE) DECREASED Normochromic RBCs VERIFIED Poikilocytosis 1+ Ovalocytes 1+ Other Body Source Fld Total RBCs Counted (%) 100 Toxicology Urine Opiates Screen (>2000 NG/ML) < 100 Methadone Screen (>300 NG/ML) 48 Barbiturate Screen (>200 NG/ML) < 60 Levetiracetam Cancelled Ur Phencyclidine Scrn (>25 NG/ML) < 6.00 Amphetamines Screen (>1000 NG/ML) < 100 U Benzodiazepines Scrn (>200 NG/ML) > 800 H Urine Cocaine Screen (>300 NG/ML) < 50 Urine Cannabis Screen (>50 NG/ML) < 5.00 Urines Urine Color (YEL,AMB,STR) YEL Urine Clarity (CLEAR) CLEAR Urine pH (5.0 - 8.0) 5.5 Ur Specific [facility] (1.001 - 1.035) >= 1.030 Urine Protein (NEG,<30 MG/DL) 30 H Urine Ketones (NEG) TRACE H Urine Nitrite (NEG) NEG Urine Bilirubin (NEG) NEG Urine Urobilinogen (0.1 - 1.0 EU/dl) 0.2 Ur Leukocyte Esterase (NEG) NEG Ur Microscopic SEDIMENT EXAMINED Urine WBC (0 - 2 /HPF) RARE Ur Epithelial Cells (NONE,FEW) MOD H Urine Crystals 1+ UR AC H Urine Bacteria (NEG/NONE) FEW H Urine Hemoglobin (NEG) NEG Urine Glucose (N MG/DL) NEG 11/29 11/29 11/29 0230 0230 0100 Blood Gas pH (7.35 - 7.45 PH) 7.47 H pCO2 (35 - 45 TORR) 29 L pO2 (80 - 100 TORR) 72 L HCO3 (21 - 28 MEQ/L) 20 L ABG O2 Sat (Measured) (>96.0 %) 95.0 L P-50 (Temp Corrected) N Carboxyhemoglobin (1.5 - 5.0 %) 0.1 L O2 Concentration % 4L O2 Delivery Method N/C Chemistry Lactic Acid (0.7 - 2.1 mmol/L) 1.3 Ammonia (9 - 30 umol/L) < 9 L Miscellaneous Phlebotomy Draw Site RIGHT RADIAL 11/28 1914 Chemistry Sodium (137 - 145 mmol/L) 142 Potassium (3.5 - 5.1 mmol/L) 3.9 Chloride (98 - 107 mmol/L) 105 Carbon Dioxide (22 - 30 mmol/L) 12 L Anion Gap (5 - 16) 25 H BUN (9 - 20 mg/dL) 11 Creatinine (0.7 - 1.2 mg/dL) 1.3 H Estimated GFR (>60 ml/min) 55 L BUN/Creatinine Ratio (7 - 25 %) 8.5 Glucose (65 - 99 mg/dL) 150 H Calcium (8.4 - 10.2 mg/dL) 9.3 Magnesium (1.6 - 2.3 mg/dL) 2.2 Total Bilirubin (0.2 - 1.3 mg/dL) 1.3 AST (17 - 59 U/L) 27 ALT (21 - 72 U/L) 19 L Alkaline Phosphatase (< 127 U/L) 87 Creatine Kinase (55 - 170 U/L) 192 H Troponin I (<0.11 ng/ml) < 0.01 Total Protein (6.3 - 8.2 g/dL) 7.4 Albumin (3.5 - 5.0 g/dL) 4.3 Globulin (1.9 - 4.2 gm/dL) 3.1 Albumin/Globulin Ratio (1.1 - 2.2 %) 1.4 Prolactin (3.7 - 17.9 ng/mL) 33.8 H Coagulation PT (9.4 - 12.5 SEC) 23.1 H INR (0.90 - 1.17) 2.10 H Hematology CBC w Diff NO MAN DIFF REQ WBC (4.8 - 10.8 /CUMM) 14.1 H RBC (4.70 - 6.10 /CUMM) 4.84 Hgb (14.0 - 18.0 G/DL) 14.9 Hct (42 - 52 %) 45.1 MCV (80.0 - 94.0 FL) 93.2 MCH (27.0 - 31.0 PG) 30.8 MCHC (33.0 - 37.0 G/DL) 33.1 RDW (11.5 - 14.5 %) 13.1 Plt Count (130 - 400 /CUMM) 225 MPV (7.4 - 10.4 FL) 7.6 Gran % (42.2 - 75.2 %) 68.0 Lymphocytes % (20.5 - 51.1 %) 26.0 Monocytes % (1.7 - 9.3 %) 5.2 Eosinophils % (0 - 5 %) 0.6 Basophils % (0.0 - 2.0 %) 0.2 Absolute Granulocytes (1.4 - 6.5 /CUMM) 9.6 H Absolute Lymphocytes (1.2 - 3.4 /CUMM) 3.7 H Absolute Monocytes (0.10 - 0.60 /CUMM) 0.7 H Absolute Eosinophils (0.0 - 0.7 /CUMM) 0.1 Absolute Basophils (0.0 - 0.2 /CUMM) 0 Toxicology Serum Alcohol (<10 MG/DL) < 10.0 Microbiology Date/Time Procedure - Status Source Growth 11/29 1841 Blood Culture - CAN BLOOD Cancelled: Cancelled via OE: Per MD Decision 11/29 1841 Blood Culture - CAN BLOOD Cancelled: Cancelled via OE: Per MD Decision 11/29 0530 Urine Culture - RECD URINE ROUT 11/29 0230 Blood Culture - RECD BLOOD 11/29 0215 Blood Culture - RECD BLOOD 11/29 014 Surveillance Culture - COMP UPPER RESP 11/29 014 Surveillance Culture - COMP GI Impression/Plan Impression/Plan Impression/Plan: Lying silently in bed, slow regular respiration, no apparent distress neck supple tenderness ribs bilat Chest mild crackles Cvs s1s2 arielle Abd soft spastic left hemiperesis [employer] exam pt appeared post ictal aroused by pain on passive ROM R hip stays awake briefly, says a few words, follows simple commands 67 year old male with PMH Sz, 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, DVT on Warfarin, HTN, HLD, PVD, BPH, Hypothyroid, GERD, Depression with seizue disorder With Recurrent seizure, not responding to Keppra and ativan with breakthrough seizures FEver rule out asp pna etc Previous stroke with hemiparesis Worsening poor performance status Sinus tachycardia Rt hip pain, rule out fracture Thrombocytopenia now new ( will follow, Not on heparin) REC cont abx Call Neuro IV ativan Cont keppra COnt venodyne boots Start valproic acid if okay with neuro and follow platelets Keep hob up Will follow Low threshold for intubation and propofol if he has recurrent seizures and transfer to [facility] if worse despite agg measures if ok with family
--- NOTE | 2017-11-30 10:41 | RADIOLOGY REPORT ---
EXAMINATION: XR PORTABLE CHEST CLINICAL INFORMATION: Fever, desaturation, seizures. Rule out aspiration pneumonia. COMPARISON: Chest x-ray dated 11/29/2017 and older exams. TECHNIQUE: Portable AP semierect view of the chest was obtained. FINDINGS: EKG leads overlie the chest. The cardiomediastinal silhouette is enlarged, unchanged. Ectasia and tortuosity of the aorta is again seen. Low lung volumes are noted. Evaluation is limited due to patient rotation. Linear reticular opacities is seen in the left lung base, likely representing atelectasis. No dense consolidation, effusion or pneumothorax is seen. Bony structures are unremarkable. IMPRESSION: 1. Unchanged appearance of the chest with low lung volumes and left basilar subsegmental atelectasis again seen. 2. No evolving pneumonia.
--- NOTE | 2017-11-30 11:14 | PN- Att Addend ---
Attending Addendum Attending Brief Note Patient drowsy, when I called his name he started having abnormal movements of his left arm for at least 10 seconds. This has been going on several times this morning. Medications again were adjusted. 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 Temp max 101.7. No other major changes in physical. Been treated for infection probable aspiration. Will continue close observation and continue to adjust the medications until he is seizure-free. Intake & Output 11/30 1600 11/30 0400 11/29 1600 11/29 0400 11/28 1600 11/28 0400 Intake Total 4732 785 1725 200 Output Total Balance 5208 644 8382 200 Intake, IV 239 914 5192 200 Intake, Oral 100 220 Patient 213 lb 213 lb 213 lb Weight Weight Bed scale Bed scale Bed scale Measurement Method Current Medications Sig/Miladis Start time Last Medication Dose Route Stop Time Status Admin Acetaminophen 1,000 MG ONCE ONE 11/29 184 DC N/A 1 UNIT IV 11/29 1859 Acetaminophen 0 .STK-MED ONE 11/30 1843 DC IV Acetaminophen 1,000 MG Q6P PRN 11/29 0815 AC 11/30 N/A 1 UNIT IV 0859 Baclofen 10 MG ONCE ONE 11/29 1145 DC 11/29 PO 11/29 1146 1339 Ceftriaxone Sodium 1,000 MG 2000 11/29 2000 AC 11/29 IV 2023 Dextrose/Sodium 1,000 ML Q20H 11/29 1515 AC 11/29 Chloride IV 1629 Levetiracetam 750 MG Q12 11/29 2100 AC 11/30 Sodium Chloride 100 ML IV 0859 Levetiracetam 1,000 MG ONCE ONE 11/29 1600 DC 11/29 N/A 1 UNIT IV 11/29 1614 1629 Levetiracetam 1,000 MG ONCE ONE 11/29 1200 DC 11/29 N/A 1 UNIT IV 11/29 1214 1217 Lidocaine 1 PAT DAILY 11/29 0900 DC 11/30 EXT 0859 Lorazepam 2 MG ONE ONE 11/30 1000 DC 11/30 IV 11/30 1001 1011 Lorazepam 1 MG ONCE ONE 11/29 2199 DC 11/29 IV 11/29 220 2155 Lorazepam 1 MG Q6-PRN PRN 11/29 220 AC 11/30 IV 0510 Lorazepam 0 .STK-MED ONE 08/09 2153 DC .ROUTE Lorazepam 2 MG ONCE ONE 11/29 1615 DC 11/29 IV 11/29 1616 1623 Lorazepam 0 .STK-MED ONE 11/29 1606 DC .ROUTE Metronidazole 500 MG IQ8 11/30 0000 AC 11/30 N/A 1 UNIT IV 0836 Potassium Chloride 10 MEQ ONCE ONE 11/30 0745 DC IV 11/30 0746 Sodium Chloride 1,000 ML Q10H 11/28 2345 DC 11/29 IV 1339 Valproate Sodium 1,000 MG ONCE ONE 11/30 1015 AC 11/30 Sodium Chloride 100 ML IV 11/30 1114 1028 Warfarin Sodium 7.5 MG COUMADIN 1700 ONE 11/30 1700 CAN PO 11/30 1701 Warfarin Sodium 7.5 MG COUMADIN 1700 ONE 11/29 1700 DC 11/29 PO 11/29 1701 1704 Laboratory Tests 11/30/17 0323: Anion Gap 8, Estimated GFR > 60, Glucose 132 H, Calcium 8.2 L, Phosphorus 2.3 L, Magnesium 1.8, Total Bilirubin 2.4 H, Direct Bilirubin 0.4, AST 22, ALT 29, Alkaline Phosphatase 58, Albumin 3.0 L, PT 26.7 H, INR 2.43 H, CBC w Diff NO MAN DIFF REQ, RBC 3.83 L, MCV 90.7, MCH 31.4 H, MCHC 34.6, RDW 13.5, MPV 8.2, Gran % 84.7 H, Lymphocytes % 6.8 L, Monocytes % 5.8, Eosinophils % 2.4, Basophils % 0.3, Absolute Granulocytes 7.9 H, Absolute Lymphocytes 0.6 L, Absolute Monocytes 0.5, Absolute Eosinophils 0.2, Absolute Basophils 0 11/29/17 1045: Levetiracetam Pending 11/29/17 0530: Urine Opiates Screen < 100, Methadone Screen 48, Barbiturate Screen < 60, Ur Phencyclidine Scrn < 6.00, Amphetamines Screen < 100, U Benzodiazepines Scrn > 800 H, Urine Cocaine Screen < 50, Urine Cannabis Screen < 5.00, Urine Color YEL , Urine Clarity CLEAR, Urine pH 5.5, Ur Specific [place] >= 1.030, Urine Protein 30 H, Urine Ketones TRACE H, Urine Nitrite NEG, Urine Bilirubin NEG, Urine Urobilinogen 0.2, Ur Leukocyte Esterase NEG, Ur Microscopic SEDIMENT EXAMINED, Urine WBC RARE, Ur Epithelial Cells MOD H, Urine Crystals 1+ UR AC H, Urine Bacteria FEW H, Urine Hemoglobin NEG, Urine Glucose NEG 11/29/17 0500: Anion Gap 7, Estimated GFR > 60, Glucose 124 H, Calcium 8.4, Phosphorus 2.9, Magnesium 2.1, Total Bilirubin 2.3 H, AST 27, ALT 32, Albumin 3.3 L, TSH 0.975 , Free T4 0.99, PT 24.2 H, INR 2.20 H, CBC w Diff MAN DIFF ORDERED, RBC 4.17 L, MCV 90.8, MCH 31.6 H, MCHC 34.8, RDW 13.1, MPV 8.2, Gran % 88.8 H, Lymphocytes % 6.3 L, Monocytes % 4.7, Eosinophils % 0.2, Basophils % 0, Absolute Granulocytes 9.4 H, Segmented Neutrophils 87 H, Band Neutrophils 2, Absolute Lymphocytes 0.7 L, Lymphocytes 8 L, Monocytes 2, Absolute Monocytes 0.5, Eosinophils 1, Absolute Eosinophils 0, Absolute Basophils 0, Nucleated RBCs 1 H, Platelet Estimate DECREASED, Normochromic RBCs VERIFIED, Poikilocytosis 1+ , Ovalocytes 1+, Fld Total RBCs Counted 100, Levetiracetam Cancelled 11/29/17 0230: Lactic Acid 1.3 11/29/17 0230: Ammonia < 9 L 11/29/17 0100: pH 7.47 H, pCO2 29 L, pO2 72 L, HCO3 20 L, ABG O2 Sat (Measured) 95.0 L, P- 50 (Temp Corrected) N, Carboxyhemoglobin 0.1 L, O2 Concentration % 4L, O2 Delivery Method N/C, Phlebotomy Draw Site RIGHT RADIAL 11/28/17 1915: Anion Gap 25 H, Estimated GFR 55 L, BUN/Creatinine Ratio 8.5, Glucose 150 H, Calcium 9.3, Magnesium 2.2, Total Bilirubin 1.3, AST 27, ALT 19 L, Alkaline Phosphatase 87, Creatine Kinase 192 H, Troponin I < 0.01, Total Protein 7.4, Albumin 4.3, Globulin 3.1, Albumin/Globulin Ratio 1.4, Prolactin 33.8 H, PT 23.1 H, INR 2.10 H, CBC w Diff NO MAN DIFF REQ, RBC 4.84, MCV 93.2, MCH 30.8, MCHC 33.1, RDW 13.1, MPV 7.6, Gran % 68.0, Lymphocytes % 26.0, Monocytes % 5.2, Eosinophils % 0.6, Basophils % 0.2, Absolute Granulocytes 9.6 H, Absolute Lymphocytes 3.7 H, Absolute Monocytes 0.7 H, Absolute Eosinophils 0.1, Absolute Basophils 0, Serum Alcohol < 10.0 Microbiology 11/29 1841 BLOOD: Blood Culture - CAN Cancelled: Cancelled via OE: Per MD Decision 11/29 1841 BLOOD: Blood Culture - CAN Cancelled: Cancelled via OE: Per MD Decision 11/29 529 URINE ROUT: Urine Culture - RES 11/29 229 BLOOD: Blood Culture - RECD 11/29 214 BLOOD: Blood Culture - RECD 11/29 144 UPPER RESP: Surveillance Culture - COMP 11/29 144 GI: Surveillance Culture - COMP Microbiology 11/29 1841 BLOOD: Blood Culture - CAN Cancelled: Cancelled via OE: Per MD Decision 11/29 1841 BLOOD: Blood Culture - CAN Cancelled: Cancelled via OE: Per MD Decision 11/29 529 URINE ROUT: Urine Culture - RES 11/29 229 BLOOD: Blood Culture - RECD 11/29 214 BLOOD: Blood Culture - RECD 11/29 144 UPPER RESP: Surveillance Culture - COMP 11/29 144 GI: Surveillance Culture - COMP Vital Signs Date Time Temp Pulse Resp B/P B/P Pulse O2 O2 Flow FiO2 Mean Ox Delivery Rate 11/30 0600 92 28 120/62 11/30 0400 97.3 99 30 140/100 11/30 0400 94 Nasal 4.0L Cannula 11/30 0200 97 28 150/76 11/30 0000 98.5 102 24 146/90 11/30 0000 94 Nasal 4.0L Cannula 11/30 0000 98.5 102 24 144/90 94 Nasal 4.0L Cannula 11/290 100.3 109 20 153/91 11/29 2017 100.3 11/30 1999 100.3 109 20 142/92 11/30 1999 92 Nasal 4.0L Cannula 11/29 191 101.7 11/29 184 101.7 11/29 1600 100.2 92 22 130/80 11/29 1600 96 Nasal 4.0L Cannula 11/29 1600 100.2 92 22 130/80 96 Nasal 4.0L Cannula 11/29 1200 Nasal 4.0L Cannula 11/29 1143 Nasal 4.0L Cannula
--- NOTE | 2017-11-30 15:32 | PN- Neurology ---
Subjective Subjective: Seemed to be doing well this AM, conversing with RN, then seizures recurred. VPA 1000 mg loaded in addition to Keppra, but has had several more seizures. Has received 4 mg Ativan as well, during the day. Now stuporous, staff concerned about respiratory status Review of Systems: unobtainable Objective Vital Signs and I&Os Vital Signs Date Time Temp Pulse Resp B/P B/P Pulse O2 O2 Flow FiO2 Mean Ox Delivery Rate 11/30 0600 92 28 120/62 11/30 0400 97.3 99 30 140/100 11/30 0400 94 Nasal 4.0L Cannula 11/30 0200 97 28 150/76 11/30 0000 98.5 102 24 146/90 11/30 0000 94 Nasal 4.0L Cannula 11/30 0000 98.5 102 24 144/90 94 Nasal 4.0L Cannula 11/29 2200 100.3 109 20 153/91 11/29 2017 100.3 11/30 1999 100.3 109 20 142/92 11/30 1999 92 Nasal 4.0L Cannula 11/29 1911 101.7 11/29 1843 101.7 11/29 1600 100.2 92 22 130/80 11/29 1600 96 Nasal 4.0L Cannula 11/29 1600 100.2 92 22 130/80 96 Nasal 4.0L Cannula Intake & Output 11/30 1600 11/30 0811/30 0000 11/29 1600 11/29 0811/29 0000 Intake Total 8107 167 8229 300 Output Total Balance 4068 474 5279 300 Intake, IV 790 487 1493 200 Intake, Oral 100 120 100 Patient 213 lb 214 lb 213 lb Weight Weight Bed scale Bed scale Measurement Method Physical Exam: Stuporous, opens eyes and stirs to noxious stimuli but does not withdraw [id number], EOMs OK on Dolls maneuver no motor activity DTRs reduced tone decreased in extremities, some resistance on neck flexion Current Medications: Current Medications Sig/Miladis Start time Last Medication Dose Route Stop Time Status Admin Acetaminophen 1,000 MG ONCE ONE 11/29 1844 DC N/A 1 UNIT IV 11/29 185 Acetaminophen 0 .STK-MED ONE 11/30 1843 DC IV Acetaminophen 1,000 MG Q6P PRN 11/29 914 AC 11/30 N/A 1 UNIT IV 0859 Ceftriaxone Sodium 1,000 MG 11/29 AC 11/29 IV 2023 Dextrose/Sodium 1,000 ML Q20H 11/29 1515 AC 11/30 Chloride IV 1441 Levetiracetam 750 MG Q12 11/29 2100 AC 11/30 Sodium Chloride 100 ML IV 0859 Levetiracetam 1,000 MG ONCE ONE 11/29 1600 DC 11/29 N/A 1 UNIT IV 11/29 1614 1629 Lidocaine 1 PAT DAILY 11/29 0900 DC 11/30 EXT 0859 Lorazepam 2 MG ONE ONE 11/30 1230 DC 11/30 IV 11/30 1231 1240 Lorazepam 2 MG ONE ONE 11/30 1000 DC 11/30 IV 11/30 1001 1011 Lorazepam 1 MG ONCE ONE 11/29 2199 DC 11/29 IV 11/29 220 215 Lorazepam 1 MG Q6-PRN PRN 11/29 2199 AC 11/30 IV 0510 Lorazepam 0 .STK-MED ONE 11/29 2153 DC .ROUTE Lorazepam 2 MG ONCE ONE 11/29 1615 DC 11/29 IV 11/29 1616 1623 Lorazepam 0 .STK-MED ONE 11/29 1606 DC .ROUTE Metronidazole 500 MG IQ8 11/30 0000 AC 11/30 N/A 1 UNIT IV 0836 Potassium Chloride 10 MEQ ONCE ONE 11/30 0745 DC 11/30 IV 11/30 0746 1441 Valproate Sodium 1,000 MG ONCE ONE 11/30 1015 DC 11/30 Sodium Chloride 100 ML IV 11/30 1114 1028 Warfarin Sodium 7.5 MG COUMADIN 1700 ONE 11/30 1700 CAN PO 11/30 1701 Warfarin Sodium 7.5 MG COUMADIN 1700 ONE 11/29 1700 DC 11/29 PO 11/29 1701 1704 Results Last 24 Hours of Lab Results: Laboratory Tests 11/30 0323 Chemistry Sodium (137 - 145 mmol/L) 138 Potassium (3.5 - 5.1 mmol/L) 3.9 Chloride (98 - 107 mmol/L) 108 H Carbon Dioxide (22 - 30 mmol/L) 23 Anion Gap (5 - 16) 8 BUN (9 - 20 mg/dL) 14 Creatinine (0.7 - 1.2 mg/dL) 1.0 Estimated GFR (>60 ml/min) > 60 Glucose (65 - 99 mg/dL) 132 H Calcium (8.4 - 10.2 mg/dL) 8.2 L Phosphorus (2.5 - 4.5 mg/dL) 2.3 L Magnesium (1.6 - 2.3 mg/dL) 1.8 Total Bilirubin (0.2 - 1.3 mg/dL) 2.4 H Direct Bilirubin (< 0.4 mg/dL) 0.4 AST (17 - 59 U/L) 22 ALT (21 - 72 U/L) 29 Alkaline Phosphatase (< 127 U/L) 58 Albumin (3.5 - 5.0 g/dL) 3.0 L Coagulation PT (9.4 - 12.5 SEC) 26.7 H INR (0.90 - 1.17) 2.43 H Hematology CBC w Diff NO MAN DIFF REQ WBC (4.8 - 10.8 /CUMM) 9.4 RBC (4.70 - 6.10 /CUMM) 3.83 L Hgb (14.0 - 18.0 G/DL) 12.0 L Hct (42 - 52 %) 34.7 L MCV (80.0 - 94.0 FL) 90.7 MCH (27.0 - 31.0 PG) 31.4 H MCHC (33.0 - 37.0 G/DL) 34.6 RDW (11.5 - 14.5 %) 13.5 Plt Count (130 - 400 /CUMM) 97 L MPV (7.4 - 10.4 FL) 8.2 Gran % (42.2 - 75.2 %) 84.7 H Lymphocytes % (20.5 - 51.1 %) 6.8 L Monocytes % (1.7 - 9.3 %) 5.8 Eosinophils % (0 - 5 %) 2.4 Basophils % (0.0 - 2.0 %) 0.3 Absolute Granulocytes (1.4 - 6.5 /CUMM) 7.9 H Absolute Lymphocytes (1.2 - 3.4 /CUMM) 0.6 L Absolute Monocytes (0.10 - 0.60 /CUMM) 0.5 Absolute Eosinophils (0.0 - 0.7 /CUMM) 0.2 Absolute Basophils (0.0 - 0.2 /CUMM) 0 Recent Imaging Studies: EEG: Abnormal due to: 1) electrographic seizure developing in the right temporal region of about 60 seconds duration, only clinical correlate was eye blinking 2) mild to moderate generalized slowing of the background 3) no abnormal EEG activity during episodes of right hand tremor Assessment/Plan Assessment: Status Epilepticus, failure of Keppra and Depakote cause thought to be medication non-compliance but patient has been febrile with initial leucocytosis but now absolute lymphopenia, and no metabolic error to explain seizures cannot do LP do to INR Plan: add Acyclovir empirically and continue Ceftriaxone Intubate and start propofol x 24-48 hours continue Keppra, increase to 1000 mg Q 12 continue VPA 750 mg BID plan for EEG Sunday MRI brain
--- NOTE | 2017-11-30 17:47 | RADIOLOGY REPORT ---
EXAMINATION: XR PORTABLE CHEST CLINICAL INFORMATION: Confirm positioning of ET and OG tubes. COMPARISON: Chest radiograph 11/30/2017 CT chest 11/01/2017 TECHNIQUE: Portable frontal view of the chest was obtained. FINDINGS: An endotracheal tube terminates 4.7 cm superior to the brennen. Enteric tube courses in the expected location of the proximal stomach and terminates in the region of the expected region of the gastric cardia. Low lung volumes are present. No gross effusions or pneumothoraces are visualized. A grossly normal pattern pulmonary vasculature is noted. The cardiac silhouette is grossly normal in size. IMPRESSION: 1. Endotracheal tube terminating 4.7 cm superior to the brennen. 2. Enteric tube terminating within the stomach. 3. Low lung volumes.
[2017-12-01 04:28] LABS: ABSOLUTE BASOPHIL COUNT 0 /CUMM (0.0-0.2); ABSOLUTE EOSINOPHIL COUNT 0.4 /CUMM (0.0-0.7); ABSOLUTE LYMPH COUNT 0.9 /CUMM (1.2-3.4); ABSOLUTE MONOCYTE COUNT 0.5 /CUMM (0.10-0.60); BASOPHIL % 0.4 % (0.0-2.0); EOSINOPHIL % 4.8 % (0-5); GRANULOCYTE % 77.2 % (42.2-75.2); HEMATOCRIT 31.5 % (42-52); MEAN CORPUSCULAR HGB 31.2 PG (27.0-31.0); MEAN CORPUSCULAR HGB CONC 34.1 G/DL (33.0-37.0); MEAN CORPUSCULAR VOLUME 91.5 FL (80.0-94.0); MEAN PLATELET VOLUME 7.9 FL (7.4-10.4); PLATELET COUNT 102 /CUMM (130-400); RBC DISTRIBUTION WIDTH 13.5 % (11.5-14.5); RED BLOOD CELL CT 3.44 /CUMM (4.70-6.10); WHITE BLOOD CELL COUNT 7.8 /CUMM (4.8-10.8)
[2017-12-01 04:45] LABS: PT 44.1 SEC (9.4-12.5)
[2017-12-01 08:00] VITALS: BP 104/60
--- NOTE | 2017-12-01 08:06 | RADIOLOGY REPORT ---
EXAMINATION: XR PORTABLE CHEST CLINICAL INFORMATION: Intubated. COMPARISON: Portable chest 11/30/2017 at 1609 hours and 0959 hours. TECHNIQUE: Portable upright AP view of the chest was obtained. FINDINGS: There are low lung volumes. The endotracheal tube tip terminates approximately 3.5 cm above brennen. NG tube is not clearly visualized. Manipulation of the window suggests it is below diaphragm. The vascularity is normal. There is no airspace consolidation or effusion. Cardiac and mediastinal contours and bony structures are stable. IMPRESSION: 1. ET tube tip 3.5 cm above brennen. 2. NG tube poorly visualized against background density, likely below diaphragm. 3. Low lung volumes. Lungs grossly clear.
--- NOTE | 2017-12-01 08:53 | PN- Resident CRCU ---
Luis Ty 12/01/17 0853: Subjective HPI/CRCU Issues: Intubated for breakthrough seizures requiring propofol/sedation/anti-epileptics and airway protection Possible meningitis DVT history on coumadin (held) R hip pain Thrombocytopenia possibly du to meds 24 Hour Events: No overnight events. Patient remained afebrile. Seen and examined this morning. Patient remained intubated on propofol drip. Patient was sedated and not responding to painful stimuli. Objective Vital Signs & I&O Last 8 Hrs of Vitals and I&O: Intake & Output 12/01 1600 12/01 0800 12/01 0000 Intake Total 1105 673 801 Output Total 470 300 50 Balance 635 373 751 Intake, IV 1045 673 801 Intake, Oral 0 0 Intake, Tube 60 Irrigant Number 0 0 Bowel Movements Output, 100 Gastric Drainage Output, Urine 370 300 50 Patient 220 lb Weight Weight Bed scale Measurement Method Laboratory Tests 12/01 0320 Chemistry Sodium (137 - 145 mmol/L) 138 Potassium (3.5 - 5.1 mmol/L) 3.6 Chloride (98 - 107 mmol/L) 105 Carbon Dioxide (22 - 30 mmol/L) 27 Anion Gap (5 - 16) 6 BUN (9 - 20 mg/dL) 13 Creatinine (0.7 - 1.2 mg/dL) 1.3 H Estimated GFR (>60 ml/min) 55 L Glucose (65 - 99 mg/dL) 127 H Calcium (8.4 - 10.2 mg/dL) 8.1 L Phosphorus (2.5 - 4.5 mg/dL) 2.1 L Magnesium (1.6 - 2.3 mg/dL) 1.8 Total Bilirubin (0.2 - 1.3 mg/dL) 1.1 AST (17 - 59 U/L) 15 L ALT (21 - 72 U/L) 24 Albumin (3.5 - 5.0 g/dL) 2.7 L Coagulation PT (9.4 - 12.5 SEC) 44.1 *H INR (0.90 - 1.17) 3.99 H Hematology CBC w Diff NO MAN DIFF REQ WBC (4.8 - 10.8 /CUMM) 7.8 RBC (4.70 - 6.10 /CUMM) 3.44 L Hgb (14.0 - 18.0 G/DL) 10.7 L Hct (42 - 52 %) 31.5 L MCV (80.0 - 94.0 FL) 91.5 MCH (27.0 - 31.0 PG) 31.2 H MCHC (33.0 - 37.0 G/DL) 34.1 RDW (11.5 - 14.5 %) 13.5 Plt Count (130 - 400 /CUMM) 102 L MPV (7.4 - 10.4 FL) 7.9 Gran % (42.2 - 75.2 %) 77.2 H Lymphocytes % (20.5 - 51.1 %) 11.7 L Monocytes % (1.7 - 9.3 %) 5.9 Eosinophils % (0 - 5 %) 4.8 Basophils % (0.0 - 2.0 %) 0.4 Absolute Granulocytes (1.4 - 6.5 /CUMM) 6.0 Absolute Lymphocytes (1.2 - 3.4 /CUMM) 0.9 L Absolute Monocytes (0.10 - 0.60 /CUMM) 0.5 Absolute Eosinophils (0.0 - 0.7 /CUMM) 0.4 Absolute Basophils (0.0 - 0.2 /CUMM) 0 Intake & Output 12/01 1600 Intake Total 1105 Output Total 470 Balance 635 Intake, IV 1045 Intake, Tube 60 Irrigant Number 0 Bowel Movements Output, 100 Gastric Drainage Output, Urine 370 Exam General Appearance: well developed/nourished, no apparent distress Head: atraumatic Neck: normal inspection Respiratory: iNTUBATED Cardiovascular: regular rate/rhythm Gastrointestinal: soft Extremities: CHRONIC VENOUS CHANGES B/L Skin Temp/Moisture Exam: Warm/Dry Sepsis Skin Exam (color): Normal for Ethnicity Current Medications: Current Medications Sig/Miladis Start time Last Medication Dose Route Stop Time Status Admin Acetaminophen 1,000 MG Q6P PRN 11/29 0915 AC 11/30 N/A 1 UNIT IV 0859 Acyclovir 860 MG Q8H 11/30 1700 AC 12/01 Dextrose/Water 250 ML IV 1800 Ceftriaxone Sodium 2,000 MG 2000 11/30 2000 AC 11/30 IV 2025 Dextrose/Sodium 1,000 ML Q13H 12/01 1145 AC 12/01 Chloride IV 1145 Dextrose/Sodium 1,000 ML Q20H 11/29 1515 DC 12/01 Chloride IV 0957 Levetiracetam 1,000 MG Q12 11/30 2100 AC 12/01 Sodium Chloride 100 ML IV 0921 Levetiracetam 750 MG Q12 11/29 2100 DC 11/30 Sodium Chloride 100 ML IV 11/30 2058 0859 Lorazepam 1 MG Q6-PRN PRN 11/29 2200 AC 11/30 IV 0510 Metronidazole 500 MG IQ8 11/30 0000 AC 12/01 N/A 1 UNIT IV 1750 Pantoprazole Sodium 40 MG DAILY 12/01 0900 AC 12/01 IV 0921 Potassium Phosphate 15 mMol ONE ONE 12/01 1145 DC 12/01 Dextrose/Water 250 ML IV 12/01 1549 1500 Propofol 1,000 MG Q12H 11/30 1830 AC 12/01 N/A 1 UNIT IV 1753 Valproate Sodium 750 MG Q12 11/30 2099 AC 12/01 Sodium Chloride 50 ML IV 09 Impression/Plan Impression/Problem List Impression: 67-year-old male with PMH of Seizure(on Keppra 500 BID) 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, DVT on Coumadin, HTN, HLD, PVD, BPH, Hypothyroid, GERD, Depression. The patient presented to [facility] with complaint of tonic-clonic seizures and unresponsivenes. Patient is being followed in ICU for following problems: Recurrent seizures status post intubation: -Continue Keppra 1000 mg bid -Continue valproic acid 750mg bid. -Continue intubation and propofol for breakthrough seizures and airway protection.- -His present ventilator settings respiratory rate 16, PEEP 5, tidal volume 550, peak flow 75, O2 35% -Continue Ativan when necessary for agitation -Continue IV Protonix Possible meningitis: -Considering his elevated INR, LP was not done. -Continue acyclovir. Covering him empirically for viral meningitis. -Consider ID consultation. Possible aspiration pneumonia: -Continue Flagyl and ceftriaxone -Patient WBC count today is 7.8 -Remained afebrile over night. Acute kidney injury: Improving -Today his creatinine is 1.3 and BUN is 13 -Continue IV hydration with dextrose/normal saline -Avoid nephrotoxic medications -Continue monitoring input and output -Patient has IOP 2454/350 in 24-hour. History of DVT on anticoagulation: -Today his INR is 3.99 -Holding his Coumadin Thrombocytopenia: -Possibly due to medication use -Avoid any medication that decreases the number of the function of the platelets. -Keep monitoring his platelet count. Cardiovascular: -Patient has pauses on compliance monitor possibly due to medication or conduction disease. -If patient continues to have pauses can we will consider cardiology consult. DVT prophylaxis: Mechanical only considering thrombocytopenia CODE STATUS: Full code Problem List: 1. LALO (acute kidney injury) 2. Seizure disorder Pain Ratin Pain Location: none Pain Plan: pain pathway Tomorrow's Labs & Rationales: cbc/icu bundle Plan DVT/Prophylaxis: mechanical Kash Jasmine MD 12/01/17 1129: Attending MD Review Statement Attending Sign Off Attending Cosign Statement: I have: examined this patient, reviewed avalbl EMR data, personally reviewd images, discussd w/resident/PA/[employer]SISTANT [employer], discussed mgmt plan w/christine, discussed mgmt plan w/CM, discussed mgmt plan w/pt, agreed w/resident/PA/[employer], amended to note. Other Findings: Kash Wilson M.D. have examined this patient, reviewed available EMR data, personally reviewed images, discussed with resident/PA/[employer]SI[employer], discussed management plan with housestaff and nursing staff, discussed managment plan all of healthcare providers, discussed management plan with patient and/or family, agreed with resident/PA/[employer]SI[employer]. The past history and parts of the chart have been autopopulated. Impression 67 year old man * intubated for breakthrough seizures requiring propofol/sedation/anti- epileptics and airway protection * concern for meningitis * DVT history on coumadin (held) * R hip pain * thrombocytopenia Plan Respiratory -on mechanical ventilation -ETT appropriately positioned -11/30 abg reviewed and normal -check CXR/ABG 12/02 ID -currently was started on empiric ceftriaxone and acyclovir -LP was not performed given coumadin and INR currently 3.99 -f/u neurology recommendations -ID consultation CVS -monitor hemodynamics -has had pauses on telemetry monitoring 11/30 -if continues to have pauses will request cardiology consultation Heme -coumadin held, INR elevated -thrombocytopenia is stable, possibly medication induced Metabolic -ins/outs -creatinine, electrolyte monitoring -mild LALO -switch to NS -replete phos, k Alimentary -NPO Neuro -neurology consultation noted and appreciated -continue anti-epileptics TTS 40 min DVT prophylaxis at all times - ALPS
--- NOTE | 2017-12-01 15:02 | PN- Att Addend ---
Attending Addendum Attending Brief Note Patient resting comfortably. No apparent seizures since 515 yesterday evening. Had some difficulty voiding and after difficult trials of Killian catheter was inserted and after that had good urine output. Patient's vital signs are stable no fever. No major changes on physical examination. Appreciate pulmonary and neurology's input and recommendations. Patient still on propofol. Will check his Depakote and Keppra levels. And if stable start tapering down the propofol. Patient will have an EEG on Sunday. Intake & Output 12/01 1600 12/01 0400 11/30 1600 11/30 0400 11/29 1600 11/29 0400 Intake Total 187 731 9045 750 1226 200 Output Total 300 50 Balance 471 468 0334 750 1226 200 Intake, IV 378 657 3674 750 1006 200 Intake, Oral 0 0 100 220 Number 0 Bowel Movements Output, Urine 300 50 Patient 220 lb 213 lb 213 lb 213 lb Weight Weight Bed scale Bed scale Bed scale Bed scale Measurement Method Current Medications Sig/Miladis Start time Last Medication Dose Route Stop Time Status Admin Acetaminophen 1,000 MG Q6P PRN 11/29 0915 11/30 N/A 1 UNIT IV 0859 Acyclovir 860 MG Q8H 11/30 1700 AC 12/01 Dextrose/Water 250 ML IV 1056 Ceftriaxone Sodium 2,000 MG 2000 12/01 1999 AC 11/30 IV 202 Ceftriaxone Sodium 1,000 MG 2000 11/29 2000 DC 11/29 IV 2023 Dextrose/Sodium 1,000 ML Q13H 12/01 1145 AC Chloride IV Dextrose/Sodium 1,000 ML Q20H 11/29 1515 DC 12/01 Chloride IV 0957 Levetiracetam 1,000 MG Q12 11/30 2100 AC 12/01 Sodium Chloride 100 ML IV 0921 Levetiracetam 750 MG Q12 11/29 2100 DC 11/30 Sodium Chloride 100 ML IV 11/30 205 0859 Lorazepam 1 MG Q6-PRN PRN 11/29 2200 AC 11/30 IV 0510 Metronidazole 500 MG IQ8 11/30 0000 AC 12/01 N/A 1 UNIT IV 0921 Non-Formulary 0 SEE ADMIN CRITERIA 11/30 1830 DC Medication ANY Pantoprazole Sodium 40 MG DAILY 12/01 0900 AC 12/01 IV 0921 Potassium Phosphate 15 mMol ONE ONE 12/01 1145 AC Dextrose/Water 250 ML IV 12/01 1549 Propofol 1,000 MG Q12H 11/30 1830 AC 12/01 N/A 1 [place] 0050 Valproate Sodium 750 MG Q12 11/30 2100 12/01 Sodium Chloride 50 ML IV 0957 Laboratory Tests 12/01/17 0320: Anion Gap 6, Estimated GFR 55 L, Glucose 127 H, Calcium 8.1 L, Phosphorus 2.1 L, Magnesium 1.8, Total Bilirubin 1.1, AST 15 L, ALT 24, Albumin 2.7 L, PT 44.1 *H, INR 3.99 H, CBC w Diff NO MAN DIFF REQ, RBC 3.44 L, MCV 91.5, MCH 31.2 H, MCHC 34.1, RDW 13.5, MPV 7.9, Gran % 77.2 H, Lymphocytes % 11.7 L, Monocytes % 5.9, Eosinophils % 4.8, Basophils % 0.4, Absolute Granulocytes 6.0, Absolute Lymphocytes 0.9 L, Absolute Monocytes 0.5, Absolute Eosinophils 0.4, Absolute Basophils 0 11/30/17 1810: pH 7.43, pCO2 35, pO2 213 H, HCO3 23, ABG O2 Sat (Measured) 99.0, Carboxyhemoglobin 0.2 L, O2 Concentration % 80, Respiration Rate 16, O2 Delivery Method VENT, Vent Mode CMV, Expiratory Pressure 5, Tidal Volume 550, Phlebotomy Draw Site RIGHT RADIAL 11/30/17 0323: Anion Gap 8, Estimated GFR > 60, Glucose 132 H, Calcium 8.2 L, Phosphorus 2.3 L, Magnesium 1.8, Total Bilirubin 2.4 H, Direct Bilirubin 0.4, AST 22, ALT 29, Alkaline Phosphatase 58, Albumin 3.0 L, PT 26.7 H, INR 2.43 H, CBC w Diff NO MAN DIFF REQ, RBC 3.83 L, MCV 90.7, MCH 31.4 H, MCHC 34.6, RDW 13.5, MPV 8.2, Gran % 84.7 H, Lymphocytes % 6.8 L, Monocytes % 5.8, Eosinophils % 2.4, Basophils % 0.3, Absolute Granulocytes 7.9 H, Absolute Lymphocytes 0.6 L, Absolute Monocytes 0.5, Absolute Eosinophils 0.2, Absolute Basophils 0 11/29/17 1045: Levetiracetam Pending 11/29/17 0530: Urine Opiates Screen < 100, Methadone Screen 48, Barbiturate Screen < 60, Ur Phencyclidine Scrn < 6.00, Amphetamines Screen < 100, U Benzodiazepines Scrn > 800 H, Urine Cocaine Screen < 50, Urine Cannabis Screen < 5.00, Urine Color YEL , Urine Clarity CLEAR, Urine pH 5.5, Ur Specific [place] >= 1.030, Urine Protein 30 H, Urine Ketones TRACE H, Urine Nitrite NEG, Urine Bilirubin NEG, Urine Urobilinogen 0.2, Ur Leukocyte Esterase NEG, Ur Microscopic SEDIMENT EXAMINED, Urine WBC RARE, Ur Epithelial Cells MOD H, Urine Crystals 1+ UR AC H, Urine Bacteria FEW H, Urine Hemoglobin NEG, Urine Glucose NEG 11/29/17 0500: Anion Gap 7, Estimated GFR > 60, Glucose 124 H, Calcium 8.4, Phosphorus 2.9, Magnesium 2.1, Total Bilirubin 2.3 H, AST 27, ALT 32, Albumin 3.3 L, TSH 0.975 , Free T4 0.99, PT 24.2 H, INR 2.20 H, CBC w Diff MAN DIFF ORDERED, RBC 4.17 L, MCV 90.8, MCH 31.6 H, MCHC 34.8, RDW 13.1, MPV 8.2, Gran % 88.8 H, Lymphocytes % 6.3 L, Monocytes % 4.7, Eosinophils % 0.2, Basophils % 0, Absolute Granulocytes 9.4 H, Segmented Neutrophils 87 H, Band Neutrophils 2, Absolute Lymphocytes 0.7 L, Lymphocytes 8 L, Monocytes 2, Absolute Monocytes 0.5, Eosinophils 1, Absolute Eosinophils 0, Absolute Basophils 0, Nucleated RBCs 1 H, Platelet Estimate DECREASED, Normochromic RBCs VERIFIED, Poikilocytosis 1+ , Ovalocytes 1+, Fld Total RBCs Counted 100, Levetiracetam Cancelled 11/29/17 0230: Lactic Acid 1.3 11/29/17 0230: Ammonia < 9 L 11/29/17 0100: pH 7.47 H, pCO2 29 L, pO2 72 L, HCO3 20 L, ABG O2 Sat (Measured) 95.0 L, P- 50 (Temp Corrected) N, Carboxyhemoglobin 0.1 L, O2 Concentration % 4L, O2 Delivery Method N/C, Phlebotomy Draw Site RIGHT RADIAL 11/28/171914: Anion Gap 25 H, Estimated GFR 55 L, BUN/Creatinine Ratio 8.5, Glucose 150 H, Calcium 9.3, Magnesium 2.2, Total Bilirubin 1.3, AST 27, ALT 19 L, Alkaline Phosphatase 87, Creatine Kinase 192 H, Troponin I < 0.01, Total Protein 7.4, Albumin 4.3, Globulin 3.1, Albumin/Globulin Ratio 1.4, Prolactin 33.8 H, PT 23.1 H, INR 2.10 H, CBC w Diff NO MAN DIFF REQ, RBC 4.84, MCV 93.2, MCH 30.8, MCHC 33.1, RDW 13.1, MPV 7.6, Gran % 68.0, Lymphocytes % 26.0, Monocytes % 5.2, Eosinophils % 0.6, Basophils % 0.2, Absolute Granulocytes 9.6 H, Absolute Lymphocytes 3.7 H, Absolute Monocytes 0.7 H, Absolute Eosinophils 0.1, Absolute Basophils 0, Serum Alcohol < 10.0 Microbiology 11/30 2133 UPPER RESP: Surveillance Culture - CAN Cancelled: Cancelled via OE: ERROR 11/30 2133 GI: Surveillance Culture - CAN Cancelled: Cancelled via OE: ERROR 11/30 1644 LOWER RESP: Respiratory Culture - RES 11/30 1644 LOWER RESP: Gram Stain - RES 11/29 1841 BLOOD: Blood Culture - CAN Cancelled: Cancelled via OE: Per MD Decision 11/29 1841 BLOOD: Blood Culture - CAN Cancelled: Cancelled via OE: Per Decision 11/29 529 URINE ROUT: Urine Culture - COMP 11/29 0230 BLOOD: Blood Culture - RES 11/29 0215 BLOOD: Blood Culture - RES 11/29 014 UPPER RESP: Surveillance Culture - COMP 11/29 144 GI: Surveillance Culture - COMP Microbiology 11/30 2133 UPPER RESP: Surveillance Culture - CAN Cancelled: Cancelled via OE: ERROR 11/30 2133 GI: Surveillance Culture - CAN Cancelled: Cancelled via OE: ERROR 11/30 1644 LOWER RESP: Respiratory Culture - RES 11/30 1644 LOWER RESP: Gram Stain - RES 11/29 1841 BLOOD: Blood Culture - CAN Cancelled: Cancelled via OE: Per Decision 11/29 1841 BLOOD: Blood Culture - CAN Cancelled: Cancelled via OE: Per MD Decision 11/29 529 URINE ROUT: Urine Culture - COMP 11/29 229 BLOOD: Blood Culture - RES 11/29 214 BLOOD: Blood Culture - RES 11/29 144 UPPER RESP: Surveillance Culture - COMP 11/29 144 GI: Surveillance Culture - COMP Vital Signs Date Time Temp Pulse Resp B/P B/P Pulse O2 O2 Flow FiO2 Mean Ox Delivery Rate 12/01 1420 35 12/01 1210 35 12/01 0835 40 12/01 0543 40 12/01 0400 100 Ventilator 40% 12/01 0308 40 12/01 0039 40 12/01 0000 99 Ventilator 40% 11/30 2300 98.4 86 15 116/78 99 Ventilator 40% 11/30 2234 40 11/30 2000 99 Ventilator 40% 11/30 1933 40 11/30 1606 80 08/ 1600 98.9 92 20 104/78 99 Ventilator 80% / 1600 100 Ventilator 80%
[2017-12-01 16:00] VITALS: BP 98/64
[2017-12-01 23:57] VITALS: BP 96/58
[2017-12-02] VITALS: BP 117/71
[2017-12-02 05:27] LABS: ABSOLUTE BASOPHIL COUNT 0 /CUMM (0.0-0.2); ABSOLUTE EOSINOPHIL COUNT 0.3 /CUMM (0.0-0.7); ABSOLUTE GRANULOCYTE CT 5.5 /CUMM (1.4-6.5); ABSOLUTE LYMPH COUNT 0.5 /CUMM (1.2-3.4); ABSOLUTE MONOCYTE COUNT 0.3 /CUMM (0.10-0.60); BASOPHIL % 0.1 % (0.0-2.0); EOSINOPHIL % 5.2 % (0-5); GRANULOCYTE % 82.1 % (42.2-75.2); HEMATOCRIT 30.2 % (42-52); MEAN CORPUSCULAR HGB 31.1 PG (27.0-31.0); MEAN CORPUSCULAR HGB CONC 33.9 G/DL (33.0-37.0); MEAN CORPUSCULAR VOLUME 91.6 FL (80.0-94.0); MEAN PLATELET VOLUME 7.7 FL (7.4-10.4); PLATELET COUNT 91 /CUMM (130-400); RBC DISTRIBUTION WIDTH 13.6 % (11.5-14.5); WHITE BLOOD CELL COUNT 6.7 /CUMM (4.8-10.8)
[2017-12-02 06:58] LABS: PT 41.9 SEC (9.4-12.5)
[2017-12-02 08:00] VITALS: BP 94/70
--- NOTE | 2017-12-02 08:07 | PN- Resident CRCU ---
Ryan REEVES,Divya 12/02/17 0807: Subjective HPI/CRCU Issues: Intubated for breakthrough seizures requiring propofol/sedation/anti-epileptics and airway protection Possible meningitis DVT history on coumadin (held) R hip pain Thrombocytopenia possibly du to meds 24 Hour Events: Patient remains intubated and sedated, he did not have breakthrough seizure on propofol. He had falls on the monitor around 11 am which Lasted for 6 sec(the propofol was turned down 30 minute before the processes start) Objective Vital Signs & I&O Last 8 Hrs of Vitals and I&O: Vital Signs Date Time Temp Pulse Resp B/P B/P Pulse O2 O2 Flow FiO2 Mean Ox Delivery Rate 12/02 1134 30 12/02 0853 30 12/02 0800 97.4 83 16 94/70 97 Ventilator 30% 12/02 0553 30 12/02 0400 96 Ventilator 30% 12/02 0318 30 12/02 0051 30 08 0000 94 Ventilator 30% 12/02 0000 99.6 90 16 117/71 94 Ventilator 30% 12/01 2357 99.6 88 16 96/58 93 Ventilator 12/01 2210 30 12/01 2113 91 Ventilator 30% 12/01 1920 30 /11 1645 30 12/01 1600 98.1 82 16 98/64 99 Ventilator 35% 12/01 1600 99 Ventilator 35% 12/01 1420 35 Intake & Output 12/02 1600 12/02 0800 08/12 0000 Intake Total 1046 1194 Output Total 635 440 Balance 411 754 Intake, IV 1046 1194 Output, 25 25 Gastric Drainage Output, Urine 610 415 Patient 229 lb Weight Exam General Appearance: sedated, intubated Respiratory: normal breath sounds, chest non-tender Cardiovascular: regular rate/rhythm Gastrointestinal: normal bowel sounds, soft Extremities: normal inspection IV Drips IV Drips: Propofol Current Medications: Current Medications Sig/Miladis Start time Last Medication Dose Route Stop Time Status Admin Acetaminophen 0 .STK-MED ONE 12/02 0932 DC IV Acetaminophen 1,000 MG Q6P PRN 11/29 0915 AC 11/30 N/A 1 UNIT IV 0859 Acyclovir 860 MG Q8H 11/30 1700 DC 12/02 Dextrose/Water 250 ML IV 1055 Atropine Sulfate 1 MG ONE PRN 12/02 1215 UNVr IV Atropine Sulfate 1 MG ONE ONE 12/02 1130 CAN IV 12/02 1131 Ceftriaxone Sodium 1,000 MG 2000 12/03 1999 AC IV Ceftriaxone Sodium 2,000 MG 2000 12/01 1999 DC 12/01 IV 2011 Dextrose/Sodium 1,000 ML Q13H 12/01 1145 DC 12/02 Chloride IV 0055 Levetiracetam 1,000 MG Q12 11/30 2100 AC 12/02 Sodium Chloride 100 ML IV 0913 Lorazepam 1 MG Q6-PRN PRN 11/29 2200 AC 11/30 IV 0510 Magnesium Sulfate 1 GM ONCE ONE 12/02 0915 AC 12/02 Dextrose/Water 100 ML IV 12/02 1314 0932 Metronidazole 500 MG IQ8 11/30 0000 DC 12/02 N/A 1 UNIT IV 0738 Pantoprazole Sodium 40 MG DAILY 12/01 0900 AC 12/02 IV 0913 Potassium Chloride 40 MEQ ONCE ONE 12/02 1015 DC 12/02 PO 12/02 1016 1056 Potassium Chloride 0 .STK-MED ONE 12/02 0932 CAN PO Potassium Chloride 40 MEQ ONCE ONE 12/02 0930 CAN PO 12/02 0931 Potassium Chloride 10 MEQ Q1H 12/02 0915 DC 12/02 IV 12/02 1016 1056 Potassium Phosphate 15 mMol ONE ONE 12/02 0945 AC 12/02 Dextrose/Water 250 ML IV 12/02 1349 1209 Potassium Phosphate 15 mMol ONE ONE 12/01 1145 DC 12/01 Dextrose/Water 250 ML IV 12/01 1549 1500 Propofol 1,000 MG Q10H 12/02 0930 AC 12/02 N/A 1 UNIT IV 0932 Propofol 0 .STK-MED ONE 12/02 0904 DC IV Propofol 1,000 MG Q12H 11/30 1830 DC 12/02 N/A 1 UNIT IV 0603 Sodium Chloride 1,000 ML Q8H 12/02 0915 AC 12/02 IV 0931 Valproate Sodium 750 MG Q12 11/30 2100 AC 12/02 Sodium Chloride 50 ML IV 1055 Antibiotics Antibiotic: ceftriaxone Day #: 4 IV/PO? 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 The patient presented to [place] [facility] with complaint of tonic-clonic seizures and unresponsivenes. He reports that he was diagnosed with seizures in 2013 and has been compliant with his medication KEPPRA 500 twice a day. He does not remember if he took the medication on the day of admission. However he reports being compliant with his medication in general. She also denies any recent changes to his medications. His medication list was confirmed with [facility], last time he had a refill for all his meds including Keppra and warfarin was on 11/16/17 from [facility]. Differential diagnosis includes noncompliance with his medication, medication interaction, structure brain changes as a complication of old stroke. Possible focal lesion including brain tumor. Last MRI was back in 2013 and only showed large old right MCA territory infarct with no features of brain neoplasm. Assessment: Continue to monitor in ICU for the following condition: #Recurrent seizure : Continue Keppra 1000 mg twice daily Continue valproic acid 750 mg twice daily taper off propofol Continue as needed Ativan for agitation Repeat EEG on 12/03 Keep n.p.o. Vitals q. one hour [facility] recommendation appreciated Possible meningitis: Afebrile, normal WBC, no signs of meningitis including neck rigidity, Kernig's or Brudzinski signs Continue ceftriaxone 2 g daily DC acyclovir and Flagyl (discussed with Dr. Garg on the phone) ID consult appreciated -Considering his elevated INR, LP was not done. Transient complete heart block on top of first-degree heart block: Patient had 3 seconds pause on Sunday, this morning he had another 3 seconds pause which was presenting as 3 beats in [place] followed by multiple nonconducted P waves. Baseline EKG has first-degree heart block Propofol was discontinued We will continue to monitor We will give atropine and pacer pads by the bedside If patient bradycardia to below 40 will give 1 dose of atropine IV #right hip pain: Most likely due to muscle spasm IV Tylenol as needed for pain Baclofen for muscle spasm (x-ray showed femoral neck deformity for further evaluation by CT) Follow-up on CT of the right hip #Acute hypoxia: on admission pulse ox was 82 most likely was secondary to the seizure activity, Improved, currently the patient is intubated, ABG showed pH 7.54, PCO2 26, PO2 72, bicarb 22 #Possible aspiration pneumonia Afebrile On admission WBC was 14.1, bands 2, segmented neutrophils 87. LRC and blood culture were negative Chest x-ray :Hypoexpanded lungs with bronchovascular crowding. No dense consolidation. Continue ceftriaxone Continue to monitor CBCs #LALO: Creatinine level increased to 1.6 Most likely prerenal, will keep him on normal saline 1 25 cc/h On admission creatinine was 1.3, baseline creatinine 0.9, Avoid nephrotoxic Monitor kidney functions Indirect Hyperbilirubinemia/ most likely Gilbert syndrome On admission his bilirubin was 2.4, LFTs normal. Reviewing the patient's chart showed that he had similar episodes during previous admissions Note from Dr. West back in 2013 suggested that the patient might have Gilbert disease Currently the patient is n.p.o. which might have triggered this hyperbilirubinemia Continue to monitor bilirubin level We will check direct bilirubin, alkaline phosphatse # Chronic tremors of the right hand: Patient has history of chronic tremors involving the right hand. EEG did not show any increased electrical activity in the brain during these tremors #History of DVT on Coumadin His INR was 3.79 As per discussion with his sister, the patient has history of DVT which resulted in a stroke through what his sister think is patent foramen ovale. In addition the patient has an extensive family history of DVTs and PE in many of his siblings as well, most likely he has familial hypercoagulability will hold off Coumadin today for thrombocytopenia and supratherapeutic INR Will reassess tomorrow Monitor INR #history of old right MCA territory infarct with residual left-sided weakness #history of chronic medical conditions including hypertension, hyperlipidemia, BPH, hypothyroidism: We will continue his home meds # Thrombocytopenia Platlete count dropped to the 90Th will hold off Coumadin and heparin close monitoring of CBC For updates you can call his sister Nancy [phone] Full code DVT prophylaxis ALPS NPO Problem List: 1. Seizure disorder 2. History of stroke Pain Ratin Tomorrow's Labs & Rationales: CBC ICU BUNDLE Plan DVT/Prophylaxis: Kash Tapia MD 12/02/17 0908: Attending MD Review Statement Attending Sign Off Attending Cosign Statement: I have: examined this patient, reviewed aval EMR data, personally reviewd images, discussd w/resident/PA/FLAT BREAKDOWN PROCESSOR, discussed mgmt plan w/christine, discussed mgmt plan w/CM, discussed mgmt plan w/pt, agreed w/resident/PA/FLAT BREAKDOWN PROCESSOR, amended to note. Other Findings: Kash Wilson M.D. have examined this patient, reviewed available EMR data, personally reviewed images, discussed with resident/PA/FLAT BREAKDOWN PROCESSOR, discussed management plan with housestaff and nursing staff, discussed managment plan all of healthcare providers, discussed management plan with patient and/or family, agreed with resident/PA/FLAT BREAKDOWN PROCESSOR. The past history and parts of the chart have been autopopulated. Impression 67 year old man * intubated for breakthrough seizures requiring propofol/sedation/anti- epileptics and airway protection * concern for meningitis * DVT history on coumadin (held) * R hip pain * thrombocytopenia Plan Respiratory -on mechanical ventilation - change TV to 500 given ABG -ETT appropriately positioned ID -currently was started on empiric ceftriaxone and acyclovir -LP was not performed given coumadin and INR currently 3.99 -f/u neurology recommendations -ID consultation [facility] -monitor hemodynamics -has had pauses on telemetry monitoring 11/30 -if continues to have pauses will request cardiology consultation Heme -coumadin held, INR elevated -thrombocytopenia is stable, possibly medication induced Metabolic -ins/outs -creatinine, electrolyte monitoring - replete potassium, magnesium, phos -mild LALO -switch to NS to 125cc/hr, if creatinine continues to increase, would get renal usg and reassess Alimentary -NPO Neuro -neurology consultation noted and appreciated -continue anti-epileptics, f/u levels -EEG pending repeat, would prefer to have patient off propofol for test TTS 35 min DVT prophylaxis at all times - ALPS
--- NOTE | 2017-12-02 09:03 | RADIOLOGY REPORT ---
EXAMINATION: XR PORTABLE CHEST CLINICAL INFORMATION: Endotracheal tube position and aspiration pneumonia. COMPARISON: Multiple prior chest x-rays, most recent of which is dated 12/01/2017. TECHNIQUE: Portable AP erect view of the chest was obtained. FINDINGS: Endotracheal tube is 4.6 cm above the brennen. Enteric tube is seen with tip projected in the region of the gastric body/antrum. Multiple EKG leads overlie the chest. The cardiac mediastinal silhouette is unchanged with prominence of the great vessel shadows the central pulmonary vessels again seen. Low lung volumes are seen with bibasilar subsegmental atelectasis. No significant effusion or pneumothorax seen. Bony structures unremarkable to the extent seen. IMPRESSION: 1. Endotracheal tube tip 4.6 cm above the brennen. 2. Enteric tube tip projects in region of the gastric body/antrum. 3. Low lung volumes with bibasilar subsegmental atelectasis.
--- NOTE | 2017-12-02 11:40 | PN- Neurology ---
Subjective Subjective: Stable, now on Propofol > 24 hours and being tapered down (10). Review of Systems: No change. Objective Vital Signs and I&Os Vital Signs Date Time Temp Pulse Resp B/P B/P Pulse O2 O2 Flow FiO2 Mean Ox Delivery Rate 12/02 0853 30 12/02 0553 30 12/02 0400 96 Ventilator 30% 12/02 0318 30 12/02 0051 30 12/02 0000 94 Ventilator 30% 12/02 0000 99.6 90 16 117/71 94 Ventilator 30% 12/01 2357 99.6 88 16 96/58 93 Ventilator 12/01 2210 30 12/01 2113 91 Ventilator 30% 12/01 1920 30 12/01 1645 30 12/01 1600 98.1 82 16 98/64 99 Ventilator 35% 12/01 1600 99 Ventilator 35% 12/01 1420 35 12/01 1210 35 12/01 1200 99 Ventilator 35% Intake & Output 12/02 1600 12/02 0800 12/02 0000 12/01 1600 12/01 0800 12/01 0000 Intake Total 1046 1194 1105 673 801 Output Total 635 440 470 300 50 Balance 411 754 635 373 751 Intake, IV 1046 1194 1045 673 801 Intake, Oral 0 0 Intake, Tube 60 Irrigant Number 0 0 Bowel Movements Output, 25 25 100 Gastric Drainage Output, Urine 610 415 370 300 50 Patient 229 lb 220 lb Weight Weight Bed scale Measurement Method Physical Exam: Still stuporous. Responsive to pain R>>L. Per nurse moves right side when stimulated. Pupils are small 3mm reactive to light and equal. Doll's eye reflex sluggish but corneal's intact. Intubated. Left toe up. No posturing. Kernig's sign is negative for meningitis. Current Medications: Current Medications Sig/Miladis Start time Last Medication Dose Route Stop Time Status Admin Acetaminophen 0 .STK-MED ONE 12/02 0932 DC IV Acetaminophen 1,000 MG Q6P PRN 11/29 0815 AC 11/30 N/A 1 UNIT IV 0859 Acyclovir 860 MG Q8H 11/30 1700 DC 12/02 Dextrose/Water 250 ML IV 1055 Atropine Sulfate 1 MG ONE ONE 12/02 1130 DC IV 12/02 1131 Ceftriaxone Sodium 1,000 MG 12/02 AC IV Ceftriaxone Sodium 2,000 MG 11/30 DC 12/01 IV 2011 Dextrose/Sodium 1,000 ML Q13H 12/01 1145 DC 12/02 Chloride IV 0055 Dextrose/Sodium 1,000 ML Q20H 11/29 1515 DC 12/01 Chloride IV 0957 Levetiracetam 1,000 MG Q12 11/30 2100 AC 12/02 Sodium Chloride 100 ML IV 0913 Lorazepam 1 MG Q6-PRN PRN 11/29 2200 AC 11/30 IV 0510 Magnesium Sulfate 1 GM ONCE ONE 12/02 0915 AC 12/02 Dextrose/Water 100 ML IV 12/02 1314 0932 Metronidazole 500 MG IQ8 11/30 0000 DC 12/02 N/A 1 UNIT IV 0738 Pantoprazole Sodium 40 MG DAILY 12/01 0900 AC 12/02 IV 0913 Potassium Chloride 40 MEQ ONCE ONE 12/02 1015 DC 12/02 PO 12/02 1016 1056 Potassium Chloride 0 .STK-MED ONE 12/02 0932 CAN PO Potassium Chloride 40 MEQ ONCE ONE 12/02 0930 CAN PO 12/02 0931 Potassium Chloride 10 MEQ Q1H 12/02 0915 DC 12/02 IV 12/02 1016 1056 Potassium Phosphate 15 mMol ONE ONE 12/02 0945 AC Dextrose/Water 250 ML IV 12/02 1349 Potassium Phosphate 15 mMol ONE ONE 12/01 1145 DC 12/01 Dextrose/Water 250 ML IV 12/01 1549 1500 Propofol 1,000 MG Q10H 12/02 0930 AC 12/02 N/A 1 UNIT IV 0932 Propofol 0 .STK-MED ONE 12/02 0904 DC IV Propofol 1,000 MG Q12H 11/30 1830 DC 12/02 N/A 1 UNIT IV 0603 Sodium Chloride 1,000 ML Q8H 12/02 0915 AC 12/02 IV 0931 Valproate Sodium 750 MG Q12 11/30 2100 AC 12/02 Sodium Chloride 50 ML IV 1055 Results Last 24 Hours of Lab Results: Laboratory Tests 12/02 12/02 12/02 12/02 0916 0640 0545 0500 Blood Gas pH (7.35 - 7.45 PH) 7.54 H pCO2 (35 - 45 TORR) 26 L pO2 (80 - 100 TORR) 72 L HCO3 (21 - 28 MEQ/L) 22 ABG O2 Sat (Measured) (>96.0 %) 95.0 L P-50 (Temp Corrected) N Carboxyhemoglobin (1.5 - 5.0 %) 0.3 L O2 Concentration % .30 Respiration Rate (BPM) 16 O2 Delivery Method VENT Vent Mode A/C Expiratory Pressure (CMH2O/P) 5 Tidal Volume (CC) 550 Coagulation PT (9.4 - 12.5 SEC) 41.9 H INR (0.90 - 1.17) 3.79 H Miscellaneous Phlebotomy Draw Site RIGHT RADIAL Toxicology Valproic Acid (50 - 120 ug/mL) 54.5 Levetiracetam Cancelled 12/02 0500 Chemistry Sodium (137 - 145 mmol/L) 137 Potassium (3.5 - 5.1 mmol/L) 3.2 L Chloride (98 - 107 mmol/L) 106 Carbon Dioxide (22 - 30 mmol/L) 25 Anion Gap (5 - 16) 7 BUN (9 - 20 mg/dL) 14 Creatinine (0.7 - 1.2 mg/dL) 1.6 H Estimated GFR (>60 ml/min) 43 L Glucose (65 - 99 mg/dL) 110 H Calcium (8.4 - 10.2 mg/dL) 7.7 L Phosphorus (2.5 - 4.5 mg/dL) 2.5 Magnesium (1.6 - 2.3 mg/dL) 1.7 Total Bilirubin (0.2 - 1.3 mg/dL) 0.7 AST (17 - 59 U/L) 14 L ALT (21 - 72 U/L) 24 Albumin (3.5 - 5.0 g/dL) 2.4 L Hematology CBC w Diff NO MAN DIFF REQ WBC (4.8 - 10.8 /CUMM) 6.7 RBC (4.70 - 6.10 /CUMM) 3.30 L Hgb (14.0 - 18.0 G/DL) 10.2 L Hct (42 - 52 %) 30.2 L MCV (80.0 - 94.0 FL) 91.6 MCH (27.0 - 31.0 PG) 31.1 H MCHC (33.0 - 37.0 G/DL) 33.9 RDW (11.5 - 14.5 %) 13.6 Plt Count (130 - 400 /CUMM) 91 L MPV (7.4 - 10.4 FL) 7.7 Gran % (42.2 - 75.2 %) 82.1 H Lymphocytes % (20.5 - 51.1 %) 7.6 L Monocytes % (1.7 - 9.3 %) 5.0 Eosinophils % (0 - 5 %) 5.2 H Basophils % (0.0 - 2.0 %) 0.1 Absolute Granulocytes (1.4 - 6.5 /CUMM) 5.5 Absolute Lymphocytes (1.2 - 3.4 /CUMM) 0.5 L Absolute Monocytes (0.10 - 0.60 /CUMM) 0.3 Absolute Eosinophils (0.0 - 0.7 /CUMM) 0.3 Absolute Basophils (0.0 - 0.2 /CUMM) 0 Toxicology Levetiracetam Pending Recent Imaging Studies: IMPRESSION: CT head: No acute intracranial abnormality. Chronic large right MCA infarction with additional smaller chronic infarction in the left lateral cerebellum. CT cervical spine: No cervical spine fracture or malalignment. Advanced multilevel degenerative spondylotic changes without high-grade spinal canal stenosis. 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 He ended up going into a slew of GTCs which required intubation and eventually propofol. Depakote was also added and is the LIKELY reason why the INR is high today (enzyme inhibitor). As far as KNOCKDOWN MAN infection he does not carry a fever, white count is normal and clinical exam does not suggest it. He has a good reason for his seizures in his old MCA stroke. I do not feel an LP is necessary especially in light of the high INRs. Plan: 1. C/w current regimen. Taper slowly off Propofol. 2. Adjust coumadin dose. 3. EEG tomorrow. 4. Is illustrates clinical signs suggestive of seizures please call us to discuss.
--- NOTE | 2017-12-02 11:55 | Cons- Cardiology ---
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 On November 28, 2017 reportedly had 2 episodes of tonic-clonic seizures at home, and it is not clear to me who called emergency medical services who brought the patient to the emergency room. He subsequently had further tonic-clonic seizure episodes in the ambulance as well as in the emergency department. Patient had fever the day of presentation and given that there has been no obvious cause identified which would have precipitated his seizure activity, meningitis remains on the differential diagnosis list. He is receiving prophylactic ceftriaxone, acyclovir and metronidazole at this time as an LP has not been possible due to the patient's high INR and low platelet count. A cardiology consult was placed today after the patient presented a cardiac pause of 3 seconds presenting as 3 beats in [place] followed by multiple nonconducted P waves. The patient's baseline ECG already had a first-degree AV block. Patient was started on propofol as well as valproic acid and received a loading dose of Keppra given his refractory seizures. At the time of the cardiac pause patient was receiving a propofol drip and was heavily sedated. Allergies/Medications Allergies: Coded Allergies: Iodinated Contrast- Oral and IV Dye (UNKNOWN PER PT 08/05/17) Penicillins (UNKNOWN PER PT 08/05/17) bacitracin (PER PT EYE OINTMENT -DOES NOT REMEMBER REACTION 05/05/17) Home Med List: Acetaminophen (Tylenol Extra Strength) 500 MG TABLET 1 TAB PO BID PRN Knee pain/fracture Amlodipine (Norvasc) 2.5 MG TABLET 1 TAB PO DAILY HEART (Reported) Aspirin (Ecotrin*) 81 MG TABLET.DR 1 TAB PO DAILY Heart Escitalopram Oxalate (Lexapro) 20 MG TABLET 1 TAB PO DAILY DEPRESSION ( Reported) Famotidine 20 MG TABLET 1 TAB PO DAILY GI (Reported) Levetiracetam (Keppra) 500 MG TABLET 1 TAB PO BID SEIZURES (Reported) Levothyroxine Sodium 125 MCG TABLET 1 TAB PO DAILY AC THYROID (Reported) Linaclotide (Linzess) 290 MCG CAPSULE 1 CAP PO DAILY BOWEL (Reported) Lisinopril (Prinivil) 5 MG TABLET 1 TAB PO DAILY BP (Reported) Melatonin 3 MG TABLET 1 TAB PO QPM SUPPLEMENT (Reported) Multiple Vitamin (Multivitamins) 1 EACH TABLET 1 TAB PO DAILY SUPPLEMENT ( Reported) Sennosides (Senna) 8.6 MG TABLET 2 TAB PO BID GI (Reported) Simvastatin (Zocor*) 20 MG TABLET 1 TAB PO QPM CHOLESTEROL (Reported) Tamsulosin HCl (Flomax) 0.4 MG CAP.ER.24H 2 CAP PO DAILY PROSTATE (Reported) Zolpidem Tartrate 5 MG TABLET 1 TAB PO QPM SLEEP (Reported) Current Medications: Current Medications Sig/Miladis Start time Last Medication Dose Route Stop Time Status Admin Acetaminophen 0 .STK-MED ONE 12/02 09 DC IV Acetaminophen 1,000 MG Q6P PRN 11/29 0915 11/30 N/A 1 UNIT IV 0859 Acyclovir 860 MG Q8H 11/30 1700 DC 12/02 Dextrose/Water 250 ML IV 1055 Atropine Sulfate 1 MG ONE ONE 12/02 1130 DC IV 12/02 1131 Ceftriaxone Sodium 1,000 MG 2000 12/03 1999 AC IV Ceftriaxone Sodium 2,000 MG 2000 11/30 2000 DC 12/01 IV 2011 Dextrose/Sodium 1,000 ML Q13H 12/01 1145 DC 12/02 Chloride IV 0055 Levetiracetam 1,000 MG Q12 11/30 2100 AC 12/02 Sodium Chloride 100 ML IV 0913 Lorazepam 1 MG Q6-PRN PRN 11/29 2200 AC 11/30 IV 0510 Magnesium Sulfate 1 GM ONCE ONE 12/02 0915 AC 12/02 Dextrose/Water 100 ML IV 12/02 1314 0932 Metronidazole 500 MG IQ8 11/30 0000 DC 12/02 N/A 1 UNIT IV 0738 Pantoprazole Sodium 40 MG DAILY 12/01 0900 AC 12/02 IV 0913 Potassium Chloride 40 MEQ ONCE ONE 12/02 1015 DC 12/02 PO 12/02 1016 1056 Potassium Chloride 0 .STK-MED ONE 12/02 0932 CAN PO Potassium Chloride 40 MEQ ONCE ONE 12/02 0930 CAN PO 12/02 0931 Potassium Chloride 10 MEQ Q1H 08/12 0915 DC 12/02 IV 12/02 1016 1056 Potassium Phosphate 15 mMol ONE ONE 12/02 0945 AC Dextrose/Water 250 ML IV 12/02 1349 Potassium Phosphate 15 mMol ONE ONE 12/01 1145 DC 12/01 Dextrose/Water 250 ML IV 12/01 1549 1500 Propofol 1,000 MG Q10H 12/02 0930 AC 12/02 N/A 1 UNIT IV 0932 Propofol 0 .STK-MED ONE 12/02 0904 DC IV Propofol 1,000 MG Q12H 11/30 1830 DC 12/02 N/A 1 UNIT IV 0603 Sodium Chloride 1,000 ML Q8H 12/02 0915 AC 12/02 IV 0931 Valproate Sodium 750 MG Q12 11/30 2100 AC 12/02 Sodium Chloride 50 ML IV 1055 Review of Systems Review of Systems Constitutional: Reports: see HPI. Cardiovascular: Reports: see HPI. Respiratory: Reports: see HPI. GI: Denies: no symptoms. Genitourinary: Denies: no symptoms. Musculoskeletal: Reports: joint swelling (right hip pain). Neurological/Psychological: Reports: see HPI. 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 . MOTHER (DM, Breast Ca, Stroke). . Psychosocial History Where Do You Live? Home Who Do You Live With? self Services at Home: Home Health Aide, Nursing Smoking Status: Never Smoked Functional Ability Ambulation: walker Exam & Diagnostic Data Vital Signs and I&O Vital Signs Date Time Temp Pulse Resp B/P B/P Pulse O2 O2 Flow FiO2 Mean Ox Delivery Rate 12/02 1134 30 12/02 0853 30 12/02 0553 30 12/02 0400 96 Ventilator 30% 12/02 0318 30 12/02 0051 30 12/02 0000 94 Ventilator 30% 12/02 0000 99.6 90 16 117/71 94 Ventilator 30% 12/01 2357 99.6 88 16 96/58 93 Ventilator 12/01 2210 30 12/01 2113 91 Ventilator 30% 12/01 1920 30 12/01 1645 30 12/01 1600 98.1 82 16 98/64 99 Ventilator 35% 12/01 1600 99 Ventilator 35% 12/01 1420 35 12/01 1210 35 12/01 1200 99 Ventilator 35% Intake & Output 12/02 1600 12/02 0800 12/02 0000 12/01 1600 12/01 0800 12/01 0000 Intake Total 1046 1194 1105 673 801 Output Total 635 440 470 300 50 Balance 411 754 635 373 751 Intake, IV 1046 1194 1045 673 801 Intake, Oral 0 0 Intake, Tube 60 Irrigant Number 0 0 Bowel Movements Output, 25 25 100 Gastric Drainage Output, Urine 610 415 370 300 50 Patient 229 lb 220 lb Weight Weight Bed scale Measurement Method Physical Exam General Appearance: sedated, intubated Head: atraumatic Neck: trachea mid line Respiratory: normal breath sounds, lungs clear Cardiovascular: regular rate/rhythm, normal peripheral pulses Gastrointestinal: normal bowel sounds, soft Extremities: normal inspection, normal capillary refill Skin: intact Labs/Santosh Results: Laboratory Tests 12/02 12/02 12/02 12/02 0916 0640 0545 0500 Blood Gas pH (7.35 - 7.45 PH) 7.54 H pCO2 (35 - 45 TORR) 26 L pO2 (80 - 100 TORR) 72 L HCO3 (21 - 28 MEQ/L) 22 ABG O2 Sat (Measured) (>96.0 %) 95.0 L P-50 (Temp Corrected) N Carboxyhemoglobin (1.5 - 5.0 %) 0.3 L O2 Concentration % .30 Respiration Rate (BPM) 16 O2 Delivery Method VENT Vent Mode A/C Expiratory Pressure (CMH2O/P) 5 Tidal Volume (CC) 550 Coagulation PT (9.4 - 12.5 SEC) 41.9 H INR (0.90 - 1.17) 3.79 H Miscellaneous Phlebotomy Draw Site RIGHT RADIAL Toxicology Valproic Acid (50 - 120 ug/mL) 54.5 Levetiracetam Cancelled 12/02 12/01 0500 0320 Chemistry Sodium (137 - 145 mmol/L) 137 138 Potassium (3.5 - 5.1 mmol/L) 3.2 L 3.6 Chloride (98 - 107 mmol/L) 106 105 Carbon Dioxide (22 - 30 mmol/L) 25 27 Anion Gap (5 - 16) 7 6 BUN (9 - 20 mg/dL) 14 13 Creatinine (0.7 - 1.2 mg/dL) 1.6 H 1.3 H Estimated GFR (>60 ml/min) 43 L 55 L Glucose (65 - 99 mg/dL) 110 H 127 H Calcium (8.4 - 10.2 mg/dL) 7.7 L 8.1 L Phosphorus (2.5 - 4.5 mg/dL) 2.5 2.1 L Magnesium (1.6 - 2.3 mg/dL) 1.7 1.8 Total Bilirubin (0.2 - 1.3 mg/dL) 0.7 1.1 AST (17 - 59 U/L) 14 L 15 L ALT (21 - 72 U/L) 24 24 Albumin (3.5 - 5.0 g/dL) 2.4 L 2.7 L Coagulation PT (9.4 - 12.5 SEC) 44.1 *H INR (0.90 - 1.17) 3.99 H Hematology CBC w Diff NO MAN DIFF REQ NO MAN DIFF REQ WBC (4.8 - 10.8 /CUMM) 6.7 7.8 RBC (4.70 - 6.10 /CUMM) 3.30 L 3.44 L Hgb (14.0 - 18.0 G/DL) 10.2 L 10.7 L Hct (42 - 52 %) 30.2 L 31.5 L MCV (80.0 - 94.0 FL) 91.6 91.5 MCH (27.0 - 31.0 PG) 31.1 H 31.2 H MCHC (33.0 - 37.0 G/DL) 33.9 34.1 RDW (11.5 - 14.5 %) 13.6 13.5 Plt Count (130 - 400 /CUMM) 91 L 102 L MPV (7.4 - 10.4 FL) 7.7 7.9 Gran % (42.2 - 75.2 %) 82.1 H 77.2 H Lymphocytes % (20.5 - 51.1 %) 7.6 L 11.7 L Monocytes % (1.7 - 9.3 %) 5.0 5.9 Eosinophils % (0 - 5 %) 5.2 H 4.8 Basophils % (0.0 - 2.0 %) 0.1 0.4 Absolute Granulocytes (1.4 - 6.5 /CUMM) 5.5 6.0 Absolute Lymphocytes (1.2 - 3.4 /CUMM) 0.5 L 0.9 L Absolute Monocytes (0.10 - 0.60 /CUMM) 0.3 0.5 Absolute Eosinophils (0.0 - 0.7 /CUMM) 0.3 0.4 Absolute Basophils (0.0 - 0.2 /CUMM) 0 0 Toxicology Levetiracetam Pending 11/30 1810 Blood Gas pH (7.35 - 7.45 PH) 7.43 pCO2 (35 - 45 TORR) 35 pO2 (80 - 100 TORR) 213 H HCO3 (21 - 28 MEQ/L) 23 ABG O2 Sat (Measured) (>96.0 %) 99.0 Carboxyhemoglobin (1.5 - 5.0 %) 0.2 L O2 Concentration % 80 Respiration Rate (BPM) 16 O2 Delivery Method VENT Vent Mode CMV Expiratory Pressure (CMH2O/P) 5 Tidal Volume (CC) 550 Miscellaneous Phlebotomy Draw Site RIGHT RADIAL Assessment/Plan Assessment/Plan Transient complete heart block and patient with baseline first-degree AV block who was heavily sedated with propofol due to refractory seizures. Of the medication the patient is receiving at the moment, the most likely culprit is propofol which may cause AV block and bradycardia, however valproic acid can also cause bradycardia but fewer incidents have been reported. At this time I would only continue to monitor the patient and discontinue the propofol as soon as neurology deems it safe. Until then should he have sustained episodes of bradycardia below 40 bpm or complete pauses, a dose of atropine may be given. The patient does not have any other sheron blocking agent and they should obviously be avoided at the moment. No further testing is necessary at this time. The patient's other medical issues are the following: * intubated for breakthrough seizures requiring propofol/sedation/anti- epileptics and airway protection * concern for meningitis * DVT history on coumadin (held) * R hip pain * thrombocytopenia. Consult Acknowledgment - Thank you for your consult request.
[2017-12-02 12:00] VITALS: BP 124/82
--- NOTE | 2017-12-02 14:11 | PN- Att Addend ---
Attending Addendum Attending Brief Note Patient still in ICU. No seizures in the last 24 hours. Earlier today he had sort. Of what looked like a complete heart block. The propofol is being discontinued. Patient opens his eyes. No other changes today except for arrhythmia which will be monitoring closely his Depakote level is therapeutic and the Keppra levels are pending. Continue close observation in ICU today Intake & Output 12/02 1600 12/02 0400 12/01 1600 12/01 0400 11/30 1600 11/30 0400 Intake Total 1046 1194 9788 127 3081 750 Output Total 635 440 770 50 Balance 916 530 1125 751 1980 750 Intake, IV 1046 1194 2562 328 8503 750 Intake, Oral 0 0 100 Intake, Tube 60 Irrigant Number 0 Bowel Movements Output, 25 25 100 Gastric Drainage Output, Urine 610 415 670 50 Patient 229 lb 220 lb 213 lb Weight Weight Bed scale Bed scale Measurement Method Current Medications Sig/Miladis Start time Last Medication Dose Route Stop Time Status Admin Acetaminophen 0 .STK-MED ONE 12/02 0932 DC IV Acetaminophen 1,000 MG Q6P PRN 11/29 0915 11/30 N/A 1 UNIT IV 0859 Acyclovir 860 MG Q8H 11/30 1700 DC 12/02 Dextrose/Water 250 ML IV 1055 Atropine Sulfate 1 MG ONE PRN 12/02 1215 AC IV Atropine Sulfate 1 MG ONE ONE 12/02 1130 CAN IV 12/02 1131 Bisacodyl 10 MG ONCE ONE 12/02 1315 DC [place] 12/02 1316 Ceftriaxone Sodium 1,000 MG 2000 12/03 1999 AC IV Ceftriaxone Sodium 2,000 MG 2000 11/30 2000 DC 12/01 IV 2011 Dextrose/Sodium 1,000 ML Q13H 12/01 1145 DC 12/02 Chloride IV 0055 Levetiracetam 1,000 MG Q12 11/30 2100 AC 12/02 Sodium Chloride 100 ML IV 0913 Lorazepam 1 MG Q6-PRN PRN 11/29 2200 AC 11/30 IV 0510 Magnesium Sulfate 1 GM ONCE ONE 12/02 0915 DC 12/02 Dextrose/Water 100 ML IV 12/02 1314 0932 Metronidazole 500 MG IQ8 / 0000 DC 12/02 N/A 1 UNIT IV 0738 Pantoprazole Sodium 40 MG DAILY 12/01 0900 AC 12/02 IV 0913 Potassium Chloride 40 MEQ ONCE ONE 12/02 1015 DC 12/02 PO 12/02 1016 1056 Potassium Chloride 0 .STK-MED ONE 12/02 0932 CAN PO Potassium Chloride 40 MEQ ONCE ONE 12/02 0930 CAN PO 12/02 0931 Potassium Chloride 10 MEQ Q1H 12/02 0915 DC 12/02 IV 12/02 1016 1056 Potassium Phosphate 15 mMol ONE ONE 12/02 0945 DC 12/02 Dextrose/Water 250 ML IV 12/02 1349 1209 Potassium Phosphate 15 mMol ONE ONE 12/01 1145 DC 12/01 Dextrose/Water 250 ML IV 12/01 1549 1500 Propofol 1,000 MG Q10H 12/02 0930 AC 12/02 N/A 1 UNIT IV 0932 Propofol 0 .STK-MED ONE 12/02 0904 DC IV Propofol 1,000 MG Q12H 11/30 1830 DC 12/02 N/A 1 UNIT IV 0603 Sodium Chloride 1,000 ML Q8H 12/02 0915 AC 12/02 IV 0931 Valproate Sodium 750 MG Q12 11/30 2100 AC 12/02 Sodium Chloride 50 ML IV 1055 Laboratory Tests 12/02/17 0916: Levetiracetam Cancelled 12/02/17 0640: PT 41.9 H, INR 3.79 H 12/02/17 0545: pH 7.54 H, pCO2 26 L, pO2 72 L, HCO3 22, ABG O2 Sat (Measured) 95.0 L, P-50 (Temp Corrected) N, Carboxyhemoglobin 0.3 L, O2 Concentration % .30, Respiration Rate 16, O2 Delivery Method VENT, Vent Mode A/C, Expiratory Pressure 5, Tidal Volume 550, Phlebotomy Draw Site RIGHT RADIAL 12/02/17 0500: Valproic Acid 54.5 12/02/17 0500: Anion Gap 7, Estimated GFR 43 L, Glucose 110 H, Calcium 7.7 L, Phosphorus 2.5 , Magnesium 1.7, Total Bilirubin 0.7, AST 14 L, ALT 24, Albumin 2.4 L, CBC w Diff NO MAN DIFF REQ, RBC 3.30 L, MCV 91.6, MCH 31.1 H, MCHC 33.9, RDW 13.6, MPV 7.7, Gran % 82.1 H, Lymphocytes % 7.6 L, Monocytes % 5.0, Eosinophils % 5.2 H, Basophils % 0.1, Absolute Granulocytes 5.5, Absolute Lymphocytes 0.5 L, Absolute Monocytes 0.3, Absolute Eosinophils 0.3, Absolute Basophils 0, Levetiracetam Pending 12/01/17 0320: Anion Gap 6, Estimated GFR 55 L, Glucose 127 H, Calcium 8.1 L, Phosphorus 2.1 L, Magnesium 1.8, Total Bilirubin 1.1, AST 15 L, ALT 24, Albumin 2.7 L, PT 44.1 *H, INR 3.99 H, CBC w Diff NO MAN DIFF REQ, RBC 3.44 L, MCV 91.5, MCH 31.2 H, MCHC 34.1, RDW 13.5, MPV 7.9, Gran % 77.2 H, Lymphocytes % 11.7 L, Monocytes % 5.9, Eosinophils % 4.8, Basophils % 0.4, Absolute Granulocytes 6.0, Absolute Lymphocytes 0.9 L, Absolute Monocytes 0.5, Absolute Eosinophils 0.4, Absolute Basophils 0 11/30/171809: pH 7.43, pCO2 35, pO2 213 H, HCO3 23, ABG O2 Sat (Measured) 99.0, Carboxyhemoglobin 0.2 L, O2 Concentration % 80, Respiration Rate 16, O2 Delivery Method VENT, Vent Mode CMV, Expiratory Pressure 5, Tidal Volume 550, Phlebotomy Draw Site RIGHT RADIAL 11/30/17 0323: Anion Gap 8, Estimated GFR > 60, Glucose 132 H, Calcium 8.2 L, Phosphorus 2.3 L, Magnesium 1.8, Total Bilirubin 2.4 H, Direct Bilirubin 0.4, AST 22, ALT 29, Alkaline Phosphatase 58, Albumin 3.0 L, PT 26.7 H, INR 2.43 H, CBC w Diff NO MAN DIFF REQ, RBC 3.83 L, MCV 90.7, MCH 31.4 H, MCHC 34.6, RDW 13.5, MPV 8.2, Gran % 84.7 H, Lymphocytes % 6.8 L, Monocytes % 5.8, Eosinophils % 2.4, Basophils % 0.3, Absolute Granulocytes 7.9 H, Absolute Lymphocytes 0.6 L, Absolute Monocytes 0.5, Absolute Eosinophils 0.2, Absolute Basophils 0 Microbiology 11/30 2133 UPPER RESP: Surveillance Culture - CAN Cancelled: Cancelled via OE: ERROR 08/10 2134 GI: Surveillance Culture - CAN Cancelled: Cancelled via OE: ERROR 11/30 1644 LOWER RESP: Respiratory Culture - COMP 11/30 1644 LOWER RESP: Gram Stain - COMP 11/29 1841 BLOOD: Blood Culture - CAN Cancelled: Cancelled via OE: Per MD Decision 11/29 1841 BLOOD: Blood Culture - CAN Cancelled: Cancelled via OE: Per MD Decision Microbiology 11/30 2133 UPPER RESP: Surveillance Culture - CAN Cancelled: Cancelled via OE: ERROR 11/30 2133 GI: Surveillance Culture - CAN Cancelled: Cancelled via OE: ERROR 11/30 1644 LOWER RESP: Respiratory Culture - COMP 11/30 1644 LOWER RESP: Gram Stain - COMP 11/29 1841 BLOOD: Blood Culture - CAN Cancelled: Cancelled via OE: Per MD Decision 11/29 1841 BLOOD: Blood Culture - CAN Cancelled: Cancelled via OE: Per MD Decision Vital Signs Date Time Temp Pulse Resp B/P B/P Pulse O2 O2 Flow FiO2 Mean Ox Delivery Rate 08/ 1134 30 08/12 0853 30 08/ 0800 97.4 83 16 94/70 97 Ventilator 30% 08/ 0553 30 08/ 0400 96 Ventilator 30% 08/ 0318 30 08/ 0051 30 08/12 0000 94 Ventilator 30% 08/ 0000 99.6 90 16 117/71 94 Ventilator 30% 08/ 2357 99.6 88 16 96/58 93 Ventilator 08/ 2210 30 08/ 2113 91 Ventilator 30% / 1920 30 08/ 1645 30 08/ 1600 98.1 82 16 98/64 99 Ventilator 35% 08/ 1600 99 Ventilator 35% 08/ 1420 35 INR is supratherapeutic today hold Coumadin today. Potassium 3.2 replace.
[2017-12-02] MEDS ORDERED: COUMADIN7.5 M1 PO (15:18)
[2017-12-02] MEDS ORDERED: TRULANCE3 MG PO (15:19)
[2017-12-02] MEDS ORDERED: GENERLAC10 GM/151 PO (15:26)
[2017-12-02 16:00] VITALS: BP 148/80
[2017-12-02 22:50] VITALS: BP 128/85
[2017-12-03 05:21] LABS: ABSOLUTE BASOPHIL COUNT 0 /CUMM (0.0-0.2); ABSOLUTE EOSINOPHIL COUNT 0.4 /CUMM (0.0-0.7); ABSOLUTE GRANULOCYTE CT 5.3 /CUMM (1.4-6.5); ABSOLUTE LYMPH COUNT 0.6 /CUMM (1.2-3.4); ABSOLUTE MONOCYTE COUNT 0.5 /CUMM (0.10-0.60); BASOPHIL % 0.2 % (0.0-2.0); GRANULOCYTE % 77.6 % (42.2-75.2); HEMATOCRIT 31.1 % (42-52); MEAN CORPUSCULAR HGB 31.5 PG (27.0-31.0); MEAN CORPUSCULAR HGB CONC 34.4 G/DL (33.0-37.0); MEAN CORPUSCULAR VOLUME 91.5 FL (80.0-94.0); MEAN PLATELET VOLUME 7.2 FL (7.4-10.4); PLATELET COUNT 123 /CUMM (130-400); RBC DISTRIBUTION WIDTH 13.5 % (11.5-14.5); WHITE BLOOD CELL COUNT 6.8 /CUMM (4.8-10.8)
[2017-12-03 05:25] LABS: PT 38.6 SEC (9.4-12.5)
--- NOTE | 2017-12-03 07:50 | PN- Resident CRCU ---
Subjective HPI/CRCU Issues: Breakthrough seizures status post intubation - day 4 6 second pause, now in sinus rhythm - off propofol LALO - on IV fluids Right hip pain Elevated INR - off warfarin 24 Hour Events: Patient remained hemodynamically stable, intubated. No seizure activity reported so far. He had a 6 second pause followed by discontinuation of propofol. EEG today. Vent settings - assist control 16/500/30%/5. Underwent a CPAP trial yesterday. Vital signs Afebrile, heart rate 70-90, first-degree AV block, respiratory rate 16, blood pressure 97-160s/72- 90 mmHg. Significant labs are platelet count of 123, sodium 140, creatinine 1.3 from 1.6, calcium 7.7 (corrected 8.9), AST 15, albumin 2.5. INR 3.5. Objective Vital Signs & I&O Last 8 Hrs of Vitals and I&O: Vital Signs Date Time Temp Pulse Resp B/P B/P Pulse O2 O2 Flow FiO2 Mean Ox Delivery Rate 12/03 0551 35 12/03 0324 35 12/03 0313 98 Ventilator 35% 12/03 0038 35 12/02 2347 94 Ventilator 35% 12/02 2250 98.9 83 18 128/85 91 Ventilator 35% 12/02 2210 35 12/02 2000 94 Ventilator 30% 12/02 1905 30 12/02 1600 30 12/02 1600 98.0 96 22 148/80 98 Ventilator 30% 12/02 1600 98 Ventilator 30% 12/02 1425 30 12/02 1200 97 Ventilator 30% 12/02 1200 98.2 88 20 124/82 97 Ventilator 30% 12/02 1134 30 12/02 0853 30 12/02 0800 97.4 83 16 94/70 97 Ventilator 30% 12/02 0800 97 Ventilator 30% Intake & Output 12/03 0812/03 0000 12/02 1600 Intake Total 1200 1817 Output Total 520 525 Balance 680 1292 Intake, IV 1200 1597 Intake, Other 220 Number 0 Bowel Movements Output, 50 50 Gastric Drainage Output, Urine 470 475 Exam General Appearance: sedated, intubated Head: atraumatic, normal appearance Respiratory: chest non-tender, no respiratory distress, quiet respiration, lungs clear Cardiovascular: regular rate/rhythm, edema, bradycardia, 6 sec pause yesterday Gastrointestinal: normal bowel sounds, soft, non-tender Extremities: normal capillary refill Cranial Nerves: PERRL Skin: intact Weaning Parameters NIF: 20 Minute Volume: 6.36 Resp rate: 30 Vt: 220 Heart Rate: 87 Weaning Schedule Start Time: 1605 Minute Volume: 11.4 Resp Rate: 23 Vt: 495 Heart Rate: 94 End Time: 1900 Minute Volume: 9.92 Resp Rate: 23 Vt: 430 Heart Rate: 85 IV Drips IV Drips: IV fluids @ 125ml/hr Nutrition Nutrition: NPO Current Medications: Current Medications Sig/Miladis Start time Last Medication Dose Route Stop Time Status Admin Acetaminophen 0 .STK-MED ONE 12/03 931 DC IV Acetaminophen 1,000 MG Q6P PRN 11/29 0915 AC 12/02 N/A 1 UNIT IV 1430 Acyclovir 860 MG Q8H 11/30 1700 DC 12/02 Dextrose/Water 250 ML IV 1055 Atropine Sulfate 1 MG ONE PRN 12/02 1215 AC IV Atropine Sulfate 1 MG ONE ONE 12/02 1130 CAN IV 12/02 1131 Bisacodyl 10 MG ONCE ONE 12/02 1315 DC 12/02 SC 12/02 1316 1430 Ceftriaxone Sodium 1,000 MG 2000 12/03 1999 AC 12/02 IV 2114 Ceftriaxone Sodium 2,000 MG 2000 12/01 1999 DC 12/01 IV 2011 Dextrose/Sodium 1,000 ML Q13H 12/01 1145 DC 12/02 Chloride IV 0055 Levetiracetam 1,000 MG Q12 11/30 2100 AC 12/03 Sodium Chloride 100 ML IV 0746 Levothyroxine Sodium 0.125 MG DAILY AC 12/02 1513 AC 12/03 PO 0746 Linaclotide 290 MCG DAILY 12/02 1515 AC 12/03 PO 0746 Lorazepam 1 MG Q6-PRN PRN 11/29 2200 AC 12/02 IV 1741 Magnesium Sulfate 1 GM ONCE ONE 12/02 0915 DC 12/02 Dextrose/Water 100 ML IV 12/02 1314 0932 Metronidazole 500 MG IQ8 11/30 0000 DC 12/02 N/A 1 UNIT IV 0738 Pantoprazole Sodium 40 MG DAILY 12/01 0900 AC 12/03 IV 0746 Potassium Chloride 40 MEQ ONCE ONE 12/02 1015 DC 12/02 PO 12/02 1016 1056 Potassium Chloride 0 .STK-MED ONE 12/02 0932 CAN PO Potassium Chloride 40 MEQ ONCE ONE 12/02 0930 CAN PO 12/02 0931 Potassium Chloride 10 MEQ Q1H 12/02 0915 DC 08/ IV 12/02 1016 1056 Potassium Phosphate 15 mMol ONE ONE 12/02 0945 DC 12/02 Dextrose/Water 250 ML IV 12/02 1349 1209 Propofol 1,000 MG Q10H 12/02 0930 DC 12/02 N/A 1 UNIT IV 0932 Propofol 0 .STK-MED ONE 12/02 0904 DC IV Propofol 1,000 MG Q12H 11/30 1830 DC 12/02 N/A 1 UNIT IV 0603 Senna 187 MG AT BEDTIME 12/02 2100 AC 12/02 PO 2124 Sodium Chloride 1,000 ML Q8H 12/02 0915 AC 12/02 IV 2119 Thiamine HCl 500 MG Q8H 12/02 1800 CAN Sodium Chloride 250 ML IV Thiamine HCl 500 MG Q8 12/02 1715 CAN IV Valproate Sodium 750 MG Q12 11/30 2100 AC 12/02 Sodium Chloride 50 ML IV 2125 CXR Findings: IMPRESSION: ET tube 4.2 cm above the brennen. Limited visualization of the enteric tube. 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 The patient presented to [facility] ED with complaint of tonic- clonic seizures and unresponsivenes. He reports that he was diagnosed with seizures in 2013 and has been compliant with his medication KEPPRA 500 twice a day. He does not remember if he took the medication on the day of admission. However he reports being compliant with his medication in general. She also denies any recent changes to his medications. His medication list was confirmed with [facility], last time he had a refill for all his meds including Keppra and warfarin was on 11/16/17 from [facility]. Possibly related to non-compliance, need to rule out acute stroke. Assessment: Continue to monitor in ICU for the following condition: Respiratory Intubated - AC 16/500/30%/5 -- for airway protection while on propofol. Now off propofol, did well on weaning trial yesterday. Possible aspiration pneumonia Afebrile on admission WBC was 14.1, bands 2, segmented neutrophils 87. LRC and blood culture were negative * Chest x-ray :Hypoexpanded lungs with bronchovascular crowding. No dense consolidation. * Continue ceftriaxone for 5 days * Need to add flagyl today Infectious Cardiology Transient complete heart block on top of first-degree heart block: Patient had 3 seconds pause on Sunday, this morning he had another 3 seconds pause which was presenting as 3 beats in [place] followed by multiple nonconducted P waves. Baseline EKG has first-degree heart block Propofol was discontinued We will continue to monitor We will give atropine and pacer pads by the bedside If patient bradycardia to below 40 will give 1 dose of atropine IV Hematology #History of DVT on Coumadin INR -3.50 today As per discussion with his sister, the patient has history of DVT which resulted in a stroke through what his sister think is patent foramen ovale. In addition the patient has an extensive family history of DVTs and PE in many of his siblings as well, most likely he has familial hypercoagulability will hold off Coumadin today for thrombocytopenia and supratherapeutic INR in the setting of medication probably. * Monitor INR daily # Thrombocytopenia Platlete count dropped to the 90's - improving - today 123 MSK #right hip pain: Most likely due to muscle spasm * IV Tylenol as needed for pain * Xray suspicious of neck deformity. Follow-up on CT of the right hip when stable Metabolic #LALO: Creatinine level increased to 1.6 - dehydration/acyclovir. UA did show UA crystals at admission. Imaging studies show only one kidney in the past. * change fluids to D51/2NS @ 75ml/hr * Avoid nephrotoxic * daily ICU bundle alimentary Indirect Hyperbilirubinemia/ most likely Gilbert syndrome On admission his bilirubin was 2.4, LFTs normal. Reviewing the patient's chart showed that he had similar episodes during previous admissions Note from Dr. West back in 2013 suggested that the patient might have Gilbert disease Currently the patient is n.p.o. which might have triggered this hyperbilirubinemia * Continue to monitor bilirubin level NPO on fluids now Neurology #Recurrent seizure : Initially loaded with Keppra, as continued to have seizures started on valproic acid as well. Due to continued seizures despite and 2 antiepileptics he was intubated and started on IV propofol drip. Yesterday patient sustained a 6 second posteriorly to perform a stapled off. Due to concerns of meningitis was broadly covered with acyclovir, metronidazole, ceftriaxone till yesterday. No signs of meningitis. LP not done as anticoagulated. * Continue Keppra 1000 mg twice daily * Continue valproic acid 750 mg twice daily * tapered off propofol due to concern of pause * Continue as needed Ativan for agitation * Repeat EEG on 12/03 * Keep n.p.o. * ID consulted, narrowed antibiotics due to low suspicion of meningitis. #history of old right MCA territory infarct with residual left-sided weakness #history of chronic medical conditions including hypertension, hyperlipidemia, BPH, hypothyroidism: We will continue his home meds # Chronic tremors on right hand For updates you can call his sister Nancy [phone] Full code DVT prophylaxis ALPS - elevated INR Problem List: 1. Constipation 2. History of stroke 3. Seizure disorder 4. Altered mental state Pain Ratin Tomorrow's Labs & Rationales: cbc, icu bundle Plan DVT/Prophylaxis: mechanical
[2017-12-03 08:00] VITALS: BP 146/100
--- NOTE | 2017-12-03 08:03 | RADIOLOGY REPORT ---
EXAMINATION: XR PORTABLE CHEST CLINICAL INFORMATION: Intubated. COMPARISON: 12/02/2017. TECHNIQUE: Portable frontal view of the chest was obtained. FINDINGS: The ET tube is 4.2 cm above the brennen without significant change from prior. The enteric tube is not well visualized. Cardiomediastinal silhouette is stable. Lungs are hypoexpanded. IMPRESSION: ET tube 4.2 cm above the brennen. Limited visualization of the enteric tube.
--- NOTE | 2017-12-03 10:01 | PN- CRCU ---
Subjective HPI/Critical Care Issues: Doing ok Stable No seizures so far propofol off Still lethragic Objective Current Medications: Current Medications Sig/Miladis Start time Last Medication Dose Route Stop Time Status Admin Acetaminophen 1,000 MG Q6P PRN 11/29 0915 AC 12/02 N/A 1 UNIT IV 1430 Acyclovir 860 MG Q8H 11/30 1700 DC 12/02 Dextrose/Water 250 ML IV 1055 Artificial Tears 2 GTT 4 TIMES/DAY 12/03 09 AC 12/03 OPH 0944 Atropine Sulfate 1 MG ONE PRN 12/02 1215 AC IV Atropine Sulfate 1 MG ONE ONE 12/02 1130 CAN IV 12/02 1131 Bisacodyl 10 MG ONCE ONE 12/02 1315 DC 12/02 MN 12/02 1316 1430 Ceftriaxone Sodium 1,000 MG 2000 12/03 1999 AC 12/02 IV 2114 Ceftriaxone Sodium 2,000 MG 2000 12/01 1999 DC 12/01 IV 2011 Dextrose/Sodium 1,000 ML Q13H 12/03 0845 AC 12/03 Chloride IV 0916 Levetiracetam 1,000 MG Q12 11/30 2100 AC 12/03 Sodium Chloride 100 ML IV 0746 Levothyroxine Sodium 0.125 MG DAILY AC 12/02 1513 AC 12/03 PO 0746 Linaclotide 290 MCG DAILY 12/02 1515 AC 12/03 PO 0746 Lorazepam 1 MG Q6-PRN PRN 11/29 2200 AC 12/02 IV 1741 Magnesium Sulfate 1 GM ONCE ONE 12/02 914 DC 12/02 Dextrose/Water 100 ML IV 12/02 1314 0932 Metronidazole 500 MG IQ8 11/30 0000 DC 12/02 N/A 1 UNIT IV 0738 Pantoprazole Sodium 40 MG DAILY 12/01 0900 AC 12/03 IV 0746 Potassium Chloride 40 MEQ ONCE ONE 12/02 1015 DC 12/02 PO 12/02 1016 1056 Potassium Chloride 40 MEQ ONCE ONE 12/02 0930 CAN PO 12/02 0931 Potassium Chloride 10 MEQ Q1H 12/02 0915 DC 12/02 IV 12/02 1016 1056 Potassium Phosphate 15 mMol ONE ONE 12/02 0945 DC 12/02 Dextrose/Water 250 ML IV 12/02 1349 1209 Propofol 1,000 MG Q10H 12/02 0930 DC 12/02 N/A 1 UNIT IV 0932 Senna 187 MG AT BEDTIME 12/02 2099 AC 12/02 PO 2124 Sodium Chloride 1,000 ML Q8H 12/02 0915 DC / IV 2119 Thiamine HCl 500 MG Q8H 12/02 1800 CAN Sodium Chloride 250 ML IV Thiamine HCl 500 MG Q8 12/02 1715 CAN IV Valproate Sodium 750 MG Q12 11/30 2100 AC 12/03 Sodium Chloride 50 ML IV 0944 Vital Signs & I&O Last 24 Hrs of Vitals and I&O: Vital Signs Date Time Temp Pulse Resp B/P B/P Pulse O2 O2 Flow FiO2 Mean Ox Delivery Rate 12/03 829 35 12/03 0551 35 12/03 0324 35 12/03 0313 98 Ventilator 35% 12/03 0038 35 12/02 2347 94 Ventilator 35% 12/02 2250 98.9 83 18 128/85 91 Ventilator 35% 12/02 2210 35 12/02 2000 94 Ventilator 30% 12/02 1905 30 12/02 1600 30 12/02 1600 98.0 96 22 148/80 98 Ventilator 30% 12/02 1600 98 Ventilator 30% 12/02 1425 30 12/02 1200 97 Ventilator 30% 12/02 1200 98.2 88 20 124/82 97 Ventilator 30% 12/02 1134 30 Intake & Output 12/03 1600 12/03 0800 12/03 0000 Intake Total 1000 1200 Output Total 395 520 Balance 605 680 Intake, IV 1000 1200 Output, 25 50 Gastric Drainage Output, Urine 370 470 Patient 233 lb Weight Weight Bed scale Measurement Method Laboratory Tests 12/03 12/03 0750 0555 Blood Gas pH (7.35 - 7.45 PH) 7.47 H pCO2 (35 - 45 TORR) 28 L pO2 (80 - 100 TORR) 89 HCO3 (21 - 28 MEQ/L) 20 L ABG O2 Sat (Measured) (>96.0 %) 97.0 P-50 (Temp Corrected) N Carboxyhemoglobin (1.5 - 5.0 %) 0.3 L O2 Concentration % .35 Respiration Rate (BPM) 16 O2 Delivery Method VENT Vent Mode A/C Expiratory Pressure (CMH2O/P) 5 Tidal Volume (CC) 500 Miscellaneous Phlebotomy Draw Site RIGHT RADIAL Urines Urine Color (YEL,AMB,STR) [place] Urine Clarity (CLEAR) HAZY H Urine pH (5.0 - 8.0) 6.0 Ur Specific [place] (1.001 - 1.035) >= 1.030 Urine Protein (NEG,<30 MG/DL) 100 H Urine Ketones (NEG) 15 H Urine Nitrite (NEG) NEG Urine Bilirubin (NEG) NEG@ICTO Urine Urobilinogen (0.1 - 1.0 EU/dl) 0.2 Ur Leukocyte Esterase (NEG) NEG Ur Microscopic SEDIMENT EXAMINED Urine RBC (0 - 5 /HPF) >75 H Urine WBC (0 - 2 /HPF) 3-5 H Ur Epithelial Cells (NONE,FEW) RARE Urine Bacteria (NEG/NONE) FEW H Granular Casts (NONE /LPF) RARE H Urine Hemoglobin (NEG) LARGE H Urine Glucose (N MG/DL) NEG 12/03 12/02 12/02 0450 1930 0916 Chemistry Sodium (137 - 145 mmol/L) 140 139 Potassium (3.5 - 5.1 mmol/L) 4.2 3.9 Chloride (98 - 107 mmol/L) 112 H 110 H Carbon Dioxide (22 - 30 mmol/L) 22 21 L Anion Gap (5 - 16) 6 8 BUN (9 - 20 mg/dL) 14 13 Creatinine (0.7 - 1.2 mg/dL) 1.3 H 1.4 H Estimated GFR (>60 ml/min) 55 L 51 L Glucose (65 - 99 mg/dL) 105 H 100 H Calcium (8.4 - 10.2 mg/dL) 7.7 L 7.8 L Phosphorus (2.5 - 4.5 mg/dL) 3.1 3.3 Magnesium (1.6 - 2.3 mg/dL) 1.7 1.8 Total Bilirubin (0.2 - 1.3 mg/dL) 0.8 0.8 AST (17 - 59 U/L) 15 L 14 L ALT (21 - 72 U/L) 24 22 Albumin (3.5 - 5.0 g/dL) 2.5 L 2.5 L Coagulation PT (9.4 - 12.5 SEC) 38.6 H INR (0.90 - 1.17) 3.50 H Hematology CBC w Diff NO MAN DIFF REQ WBC (4.8 - 10.8 /CUMM) 6.8 RBC (4.70 - 6.10 /CUMM) 3.40 L Hgb (14.0 - 18.0 G/DL) 10.7 L Hct (42 - 52 %) 31.1 L MCV (80.0 - 94.0 FL) 91.5 MCH (27.0 - 31.0 PG) 31.5 H MCHC (33.0 - 37.0 G/DL) 34.4 RDW (11.5 - 14.5 %) 13.5 Plt Count (130 - 400 /CUMM) 123 L MPV (7.4 - 10.4 FL) 7.2 L Gran % (42.2 - 75.2 %) 77.6 H Lymphocytes % (20.5 - 51.1 %) 8.9 L Monocytes % (1.7 - 9.3 %) 7.3 Eosinophils % (0 - 5 %) 6.0 H Basophils % (0.0 - 2.0 %) 0.2 Absolute Granulocytes (1.4 - 6.5 /CUMM) 5.3 Absolute Lymphocytes (1.2 - 3.4 /CUMM) 0.6 L Absolute Monocytes (0.10 - 0.60 /CUMM) 0.5 Absolute Eosinophils (0.0 - 0.7 /CUMM) 0.4 Absolute Basophils (0.0 - 0.2 /CUMM) 0 Toxicology Levetiracetam Cancelled 12/02 12/02 12/02 0640 0545 0500 Blood Gas pH (7.35 - 7.45 PH) 7.54 H pCO2 (35 - 45 TORR) 26 L pO2 (80 - 100 TORR) 72 L HCO3 (21 - 28 MEQ/L) 22 ABG O2 Sat (Measured) (>96.0 %) 95.0 L P-50 (Temp Corrected) N Carboxyhemoglobin (1.5 - 5.0 %) 0.3 L O2 Concentration % .30 Respiration Rate (BPM) 16 O2 Delivery Method VENT Vent Mode A/C Expiratory Pressure (CMH2O/P) 5 Tidal Volume (CC) 550 Coagulation PT (9.4 - 12.5 SEC) 41.9 H INR (0.90 - 1.17) 3.79 H Miscellaneous Phlebotomy Draw Site RIGHT RADIAL Toxicology Valproic Acid (50 - 120 ug/mL) 54.5 12/02 0500 Chemistry Sodium (137 - 145 mmol/L) 137 Potassium (3.5 - 5.1 mmol/L) 3.2 L Chloride (98 - 107 mmol/L) 106 Carbon Dioxide (22 - 30 mmol/L) 25 Anion Gap (5 - 16) 7 BUN (9 - 20 mg/dL) 14 Creatinine (0.7 - 1.2 mg/dL) 1.6 H Estimated GFR (>60 ml/min) 43 L Glucose (65 - 99 mg/dL) 110 H Calcium (8.4 - 10.2 mg/dL) 7.7 L Phosphorus (2.5 - 4.5 mg/dL) 2.5 Magnesium (1.6 - 2.3 mg/dL) 1.7 Total Bilirubin (0.2 - 1.3 mg/dL) 0.7 AST (17 - 59 U/L) 14 L ALT (21 - 72 U/L) 24 Albumin (3.5 - 5.0 g/dL) 2.4 L Hematology CBC w Diff NO MAN DIFF REQ WBC (4.8 - 10.8 /CUMM) 6.7 RBC (4.70 - 6.10 /CUMM) 3.30 L Hgb (14.0 - 18.0 G/DL) 10.2 L Hct (42 - 52 %) 30.2 L MCV (80.0 - 94.0 FL) 91.6 MCH (27.0 - 31.0 PG) 31.1 H MCHC (33.0 - 37.0 G/DL) 33.9 RDW (11.5 - 14.5 %) 13.6 Plt Count (130 - 400 /CUMM) 91 L MPV (7.4 - 10.4 FL) 7.7 Gran % (42.2 - 75.2 %) 82.1 H Lymphocytes % (20.5 - 51.1 %) 7.6 L Monocytes % (1.7 - 9.3 %) 5.0 Eosinophils % (0 - 5 %) 5.2 H Basophils % (0.0 - 2.0 %) 0.1 Absolute Granulocytes (1.4 - 6.5 /CUMM) 5.5 Absolute Lymphocytes (1.2 - 3.4 /CUMM) 0.5 L Absolute Monocytes (0.10 - 0.60 /CUMM) 0.3 Absolute Eosinophils (0.0 - 0.7 /CUMM) 0.3 Absolute Basophils (0.0 - 0.2 /CUMM) 0 Toxicology Levetiracetam Pending Microbiology Date/Time Procedure - Status Source Growth 11/30 2133 Surveillance Culture - CAN UPPER RESP Cancelled: Cancelled via OE: ERROR 11/30 2133 Surveillance Culture - CAN GI Cancelled: Cancelled via OE: ERROR 11/30 1644 Respiratory Culture - COMP LOWER RESP 11/30 1644 Gram Stain - COMP LOWER RESP Impression/Plan Impression/Plan Impression/Plan: Intubated neck supple tenderness ribs bilat Chest mild crackles Cvs s1s2 arielle Abd soft spastic left hemiperesis [employer] exam Moves rt side aroused by pain on passive ROM R hip stays awake briefly, follows simple commands 67 year old male with PMH Sz, 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, DVT on Warfarin, HTN, HLD, PVD, BPH, Hypothyroid, GERD, Depression with seizue disorder With Recurrent persistant seizures, not responding to Keppra and loaded with valproic acid and sub intubated and was on propofol, now propofol dcd -Pt still lethargic off propofol prob due to recurrent seizures One episode of FEver few days ago rule out asp pna, on abx Previous stroke with hemiparesis Worsening poor performance status Sinus tachycardia before now with on and off Sinus pauses and cardio on board Rt hip pain, rule out fracture Thrombocytopenia now new ( will follow, Not on heparin) High INR was on warfarin Mild anemia with no overt signs of bleeding REC Cont vent and hold off profofol Start tube feeding at 30 cc jevity Cont ivf and reduce rate to 50cc and increase free water down ng Watch INR DC venodyne Prn squerts of propofol if needed Dc iv abx after 5-7 days total Change panto to down ng Will follow PT is critically ill tts 39 mins
--- NOTE | 2017-12-03 10:07 | Cons- Infect Disease ---
General Information and HPI Consulting Request Date of Consult: 12/03/17 Requested By: Terri REEVES,Jonny Vogel Reason for Consult: Rule out meningitis Source of Information: old records Exam Limitations: unable to give history, clinical condition History of Present Illness: This is a 67-year-old man with a history of hypertension, status post right CVA with left hemiparesis, DVT, maintained on Coumadin, peripheral vascular disease, hypothyroidism and seizure disorder, maintained on Keppra but reportedly noncompliant recently, admitted on November 28 with seizures and unresponsiveness. On admission he was afebrile and unresponsive, with an O2 sat of 81% on room air. He was placed on BiPAP and given Keppra and Ativan for recurrent seizures. Laboratory data revealed a white blood cell count of 14,000, BUN/creatinine 11 and 1.3, with normal liver enzymes, CPK 192, prolactin 33.8, INR 2.10. CT of the head and cervical spine were negative for any acute process. Chest x-ray revealed bibasilar atelectasis. He was followed off antibiotics and admitted to the ICU. On November 29 he spiked a fever to 101.7 and he was begun on Ceftriaxone and Flagyl. An EEG revealed activity in the right temporal region for 60 seconds and, with recurrent seizures, he was begun on Acyclovir. His white blood cell count normalized by November 29 and he rapidly defervesced. On November 30 he was intubated because of recurrent seizures and he was begun on Propofol, which has been tapered off. On December 02, after discussion with me, the Acyclovir and Flagyl were discontinued and the dose of Ceftriaxone was decreased. He has had no further seizures, but has had pauses of several seconds as well as transient complete heart block, for which he was evaluated by Cardiology. He also developed thrombocytopenia, which is improving. At present he remains intubated and does respond to some commands. Allergies/Medications Allergies: Coded Allergies: Iodinated Contrast- Oral and IV Dye (UNKNOWN PER PT 08/05/17) Penicillins (UNKNOWN PER PT 08/05/17) bacitracin (PER PT EYE OINTMENT -DOES NOT REMEMBER REACTION 05/05/17) Home Med List: Acetaminophen (Tylenol Extra Strength) 500 MG TABLET 1 TAB PO BID PRN Knee pain/fracture Amlodipine (Norvasc) 2.5 MG TABLET 1 TAB PO DAILY HEART (Reported) Aspirin (Ecotrin*) 81 MG TABLET.DR 1 TAB PO DAILY Heart Escitalopram Oxalate (Lexapro) 20 MG TABLET 1 TAB PO DAILY DEPRESSION ( Reported) Famotidine 20 MG TABLET 1 TAB PO DAILY GI (Reported) Lactulose (Generlac) 10 GRAM/15 ML SOLUTION 10 GM PO D PRN CONSTIPATION ( Reported) Levetiracetam (Keppra) 500 MG TABLET 1 TAB PO BID SEIZURES (Reported) Levothyroxine Sodium 125 MCG TABLET 1 TAB PO DAILY AC THYROID (Reported) Linaclotide (Linzess) 290 MCG CAPSULE 1 CAP PO DAILY BOWEL (Reported) Lisinopril (Prinivil) 5 MG TABLET 1 TAB PO DAILY BP (Reported) Melatonin 3 MG TABLET 1 TAB PO QPM SUPPLEMENT (Reported) Multiple Vitamin (Multivitamins) 1 EACH TABLET 1 TAB PO DAILY SUPPLEMENT ( Reported) Plecanatide (Trulance) 3 MG TABLET 1 TAB PO DAILY BOWEL REGIMEN (Reported) Sennosides (Senna) 8.6 MG TABLET 2 TAB PO BID GI (Reported) Simvastatin (Zocor*) 20 MG TABLET 1 TAB PO QPM CHOLESTEROL (Reported) Tamsulosin HCl (Flomax) 0.4 MG CAP.ER.24H 2 CAP PO DAILY PROSTATE (Reported) Warfarin Sodium (Coumadin) 7.5 MG TABLET 1 TAB PO 1700 BLOOD THINNER/DVTS ( Reported) Zolpidem Tartrate 5 MG TABLET 1 TAB PO QPM SLEEP (Reported) Past History Travel History Traveled to [place] past 21 day No Medical History Neurological: CVA (right with left hemiparesis), seizure EENT: NONE Cardiovascular: hypertension, hyperlipidemia, PVD, VSD Respiratory: NONE Gastrointestinal: NONE Hepatic: NONE Renal: NONE Musculoskeletal: NONE Psychiatric: NONE Endocrine: hypothyroidism Blood Disorders: DVT Cancer(s): NONE [employer]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 . MOTHER (DM, Breast Ca, Stroke). . Psychosocial History Where Do You Live? Home Who Do You Live With? self Services at Home: Home Health Aide, Nursing Smoking Status: Never Smoked Functional Ability Ambulation: walker Review of Systems Comments Unobtainable Exam & Diagnostic Data Last 24 Hrs of Vital Signs/I&O Vital Signs Date Time Temp Pulse Resp B/P B/P Pulse O2 O2 Flow FiO2 Mean Ox Delivery Rate 12/03 0830 35 12/03 0551 35 12/03 0324 35 12/03 0313 98 Ventilator 35% 12/03 0038 35 12/02 2347 94 Ventilator 35% 12/02 2250 98.9 83 18 128/85 91 Ventilator 35% 12/02 2210 35 12/02 2000 94 Ventilator 30% 12/02 1905 30 12/02 1600 30 12/02 1600 98.0 96 22 148/80 98 Ventilator 30% 12/02 1600 98 Ventilator 30% 12/02 1425 30 12/02 1200 97 Ventilator 30% 12/02 1200 98.2 88 20 124/82 97 Ventilator 30% 12/02 1134 30 Intake & Output 12/03 1600 12/03 0800 12/03 0000 Intake Total 1000 1200 Output Total 395 520 Balance 605 680 Intake, IV 1000 1200 Output, 25 50 Gastric Drainage Output, Urine 370 470 Patient 233 lb Weight Weight Bed scale Measurement Method Physical Exam Other Physical Findings: He is awake and alert in no acute distress on the ventilator. He is afebrile. Skin reveals no rash. HEENT exam is negative. Neck is supple with no adenopathy. Lungs scattered rhonchi. Heart regular rhythm with no murmur. Abdomen is soft, nontender with positive bowel sounds. Back no CVA tenderness. Extremities 1+ edema all extremities, with chronic venous stasis changes both lower extremities. Neuro left hemiparesis. Killian catheter is in place. Last 24 Hours of Lab Results: Laboratory Tests 12/03 12/03 0750 0555 Blood Gas pH (7.35 - 7.45 PH) 7.47 H pCO2 (35 - 45 TORR) 28 L pO2 (80 - 100 TORR) 89 HCO3 (21 - 28 MEQ/L) 20 L ABG O2 Sat (Measured) (>96.0 %) 97.0 P-50 (Temp Corrected) N Carboxyhemoglobin (1.5 - 5.0 %) 0.3 L O2 Concentration % .35 Respiration Rate (BPM) 16 O2 Delivery Method VENT Vent Mode A/C Expiratory Pressure (CMH2O/P) 5 Tidal Volume (CC) 500 Miscellaneous Phlebotomy Draw Site RIGHT RADIAL Urines Urine Color (YEL,AMB,STR) [place]O Urine Clarity (CLEAR) HAZY H Urine pH (5.0 - 8.0) 6.0 Ur Specific [place] (1.001 - 1.035) >= 1.030 Urine Protein (NEG,<30 MG/DL) 100 H Urine Ketones (NEG) 15 H Urine Nitrite (NEG) NEG Urine Bilirubin (NEG) NEG@ICTO Urine Urobilinogen (0.1 - 1.0 EU/dl) 0.2 Ur Leukocyte Esterase (NEG) NEG Ur Microscopic SEDIMENT EXAMINED Urine RBC (0 - 5 /HPF) >75 H Urine WBC (0 - 2 /HPF) 3-5 H Ur Epithelial Cells (NONE,FEW) RARE Urine Bacteria (NEG/NONE) FEW H Granular Casts (NONE /LPF) RARE H Urine Hemoglobin (NEG) LARGE H Urine Glucose (N MG/DL) NEG 12/03 12/02 0450 1930 Chemistry Sodium (137 - 145 mmol/L) 140 139 Potassium (3.5 - 5.1 mmol/L) 4.2 3.9 Chloride (98 - 107 mmol/L) 112 H 110 H Carbon Dioxide (22 - 30 mmol/L) 22 21 L Anion Gap (5 - 16) 6 8 BUN (9 - 20 mg/dL) 14 13 Creatinine (0.7 - 1.2 mg/dL) 1.3 H 1.4 H Estimated GFR (>60 ml/min) 55 L 51 L Glucose (65 - 99 mg/dL) 105 H 100 H Calcium (8.4 - 10.2 mg/dL) 7.7 L 7.8 L Phosphorus (2.5 - 4.5 mg/dL) 3.1 3.3 Magnesium (1.6 - 2.3 mg/dL) 1.7 1.8 Total Bilirubin (0.2 - 1.3 mg/dL) 0.8 0.8 AST (17 - 59 U/L) 15 L 14 L ALT (21 - 72 U/L) 24 22 Albumin (3.5 - 5.0 g/dL) 2.5 L 2.5 L Coagulation PT (9.4 - 12.5 SEC) 38.6 H INR (0.90 - 1.17) 3.50 H Hematology CBC w Diff NO MAN DIFF REQ WBC (4.8 - 10.8 /CUMM) 6.8 RBC (4.70 - 6.10 /CUMM) 3.40 L Hgb (14.0 - 18.0 G/DL) 10.7 L Hct (42 - 52 %) 31.1 L MCV (80.0 - 94.0 FL) 91.5 MCH (27.0 - 31.0 PG) 31.5 H MCHC (33.0 - 37.0 G/DL) 34.4 RDW (11.5 - 14.5 %) 13.5 Plt Count (130 - 400 /CUMM) 123 L MPV (7.4 - 10.4 FL) 7.2 L Gran % (42.2 - 75.2 %) 77.6 H Lymphocytes % (20.5 - 51.1 %) 8.9 L Monocytes % (1.7 - 9.3 %) 7.3 Eosinophils % (0 - 5 %) 6.0 H Basophils % (0.0 - 2.0 %) 0.2 Absolute Granulocytes (1.4 - 6.5 /CUMM) 5.3 Absolute Lymphocytes (1.2 - 3.4 /CUMM) 0.6 L Absolute Monocytes (0.10 - 0.60 /CUMM) 0.5 Absolute Eosinophils (0.0 - 0.7 /CUMM) 0.4 Absolute Basophils (0.0 - 0.2 /CUMM) 0 Last 24 Hours of Santosh Results: Blood cultures 2 November 29 negative Urine culture November 29 negative Sputum culture November 30 mixed rubén Diagnostic Data Recent Imaging Findings: Chest x-ray December 03 reveals hypoexpanded lungs X-ray of the right hip November 29 reveals a deformity in the region of the neck of the right femur CT of the head November 28 reveals a chronic large right MCA infarct with additional small chronic infarcts in the left lateral cerebellum, with no acute abdomen CT of the cervical spine November 28 reveals multilevel degenerative spondylotic changes Assessment/Plan Assessment/Plan Impression: This is a 67-year-old man, status post right CVA, DVT, maintained on Coumadin, with a history of a seizure disorder, maintained on Keppra but reportedly noncompliant recently, admitted on November 28 with seizures and unresponsiveness, found to be hypoxic, with the development of fevers, prompting treatment for aspiration pneumonia, and recurrent seizures, requiring intubation and Propofol, now improving, with no further seizures, improving respiratory status and temperatures and white blood cell count normal. It appears that his seizures were of acute onset, likely related to his recent noncompliance, and, with no history of any prodromal symptoms to suggest meningitis or encephalitis, feel that these are unlikely. His EEG did apparently reveal activity in the temporal lobe, which does increase the concern for a process such as herpes simplex encephalitis and, if his repeat EEG, scheduled for today, again reveals this, then further evaluation, including a lumbar puncture, with reversal of his elevated INR, and MRI, once he is extubated, will need to be considered. His initial fevers may be secondary to his seizures but he was clearly at increased risk for aspiration; therefore he can be continued on antibiotics for this possibility. Suggestion: 1. Await repeat EEG 2. Consider further evaluation for encephalitis, as noted above, based on above 3. Obtain further history regarding need for continuation of Coumadin 4. Continue Ceftriaxone Consult Acknowledgment - Thank you for your consult request.
--- NOTE | 2017-12-03 10:32 | PN- Att Addend ---
Attending Addendum Attending Brief Note Patient looking better patient is alert in no respiratory distress. Still intubated. No seizures overnight. His vital signs are stable no fever no new changes on physical. Will try to wean off the ventilator today and continue observation. Follow-up labs. Intake & Output 12/03 1600 12/03 0400 12/02 1600 12/02 0400 12/01 1600 12/01 0400 Intake Total 1000 1200 2863 1194 1778 801 Output Total 025 966 7669 440 770 50 Balance 652 558 2714 754 1008 751 Intake, IV 1000 1200 2643 1194 1718 801 Intake, Oral 0 0 Intake, Other 220 Intake, Tube 60 Irrigant Number 0 0 Bowel Movements Output, 25 50 75 25 100 Gastric Drainage Output, Urine 631 735 3789 415 670 50 Patient 233 lb 229 lb 220 lb Weight Weight Bed scale Bed scale Measurement Method Current Medications Sig/Miladis Start time Last Medication Dose Route Stop Time Status Admin Acetaminophen 1,000 MG Q6P PRN 11/29 0915 AC 12/02 N/A 1 UNIT IV 1430 Acyclovir 860 MG Q8H 11/30 1700 DC 12/02 Dextrose/Water 250 ML IV 1055 Artificial Tears 2 GTT 4 TIMES/DAY 12/03 0900 AC 12/03 OPH 0944 Atropine Sulfate 1 MG ONE PRN 12/02 1215 AC IV Atropine Sulfate 1 MG ONE ONE 12/02 1130 CAN IV 12/02 1131 Bisacodyl 10 MG ONCE ONE 12/02 1315 DC 12/02 CO 12/02 1316 1430 Ceftriaxone Sodium 1,000 MG 12/02 AC 12/02 IV 2114 Ceftriaxone Sodium 2,000 MG 11/30 DC 12/01 IV 2011 Dextrose/Sodium 1,000 ML Q13H 12/03 0845 AC 12/03 Chloride IV 0916 Levetiracetam 1,000 MG Q12 11/30 2100 AC 12/03 Sodium Chloride 100 ML IV 0746 Levothyroxine Sodium 0.125 MG DAILY AC 12/02 1513 AC 12/03 PO 0746 Linaclotide 290 MCG DAILY 12/02 1515 AC 12/03 PO 0746 Lorazepam 1 MG Q6-PRN PRN 11/29 2200 AC 12/02 IV 1741 Magnesium Sulfate 1 GM ONCE ONE 12/02 0915 DC 12/02 Dextrose/Water 100 ML IV 12/02 1314 0932 Metronidazole 500 MG IQ8 11/30 0000 DC 12/02 N/A 1 UNIT IV 0738 Pantoprazole Sodium 40 MG DAILY 12/01 0900 AC 12/03 IV 0746 Potassium Phosphate 15 mMol ONE ONE 12/02 0945 DC 12/02 Dextrose/Water 250 ML IV 12/02 1349 1209 Propofol 1,000 MG Q10H 12/02 0930 DC 12/02 N/A 1 UNIT IV 0932 Senna 187 MG AT BEDTIME 12/02 2099 AC 12/02 PO 2124 Sodium Chloride 1,000 ML Q8H 12/02 0915 DC 12/02 IV 2119 Thiamine HCl 500 MG Q8H 12/02 1800 CAN Sodium Chloride 250 ML IV Thiamine HCl 500 MG Q8 12/02 1715 CAN IV Valproate Sodium 750 MG Q12 11/30 2099 AC 12/03 Sodium Chloride 50 ML IV 0944 Laboratory Tests 12/03/17 0750: Urine Color EVERARDO, Urine Clarity HAZY H, Urine pH 6.0, Ur Specific [place] >= 1.030, Urine Protein 100 H, Urine Ketones 15 H, Urine Nitrite NEG, Urine Bilirubin NEG@ICTO, Urine Urobilinogen 0.2, Ur Leukocyte Esterase NEG, Ur Microscopic SEDIMENT EXAMINED, Urine RBC >75 H, Urine WBC 3-5 H, Ur Epithelial Cells RARE, Urine Bacteria FEW H, Granular Casts RARE H, Urine Hemoglobin LARGE H, Urine Glucose NEG 12/03/17 0555: pH 7.47 H, pCO2 28 L, pO2 89, HCO3 20 L, ABG O2 Sat (Measured) 97.0, P-50 ( Temp Corrected) N, Carboxyhemoglobin 0.3 L, O2 Concentration % .35, Respiration Rate 16, O2 Delivery Method VENT, Vent Mode A/C, Expiratory Pressure 5, Tidal Volume 500, Phlebotomy Draw Site RIGHT RADIAL 12/03/17 0450: Anion Gap 6, Estimated GFR 55 L, Glucose 105 H, Calcium 7.7 L, Phosphorus 3.1 , Magnesium 1.7, Total Bilirubin 0.8, AST 15 L, ALT 24, Albumin 2.5 L, PT 38.6 H, INR 3.50 H, CBC w Diff NO MAN DIFF REQ, RBC 3.40 L, MCV 91.5, MCH 31.5 H, MCHC 34.4, RDW 13.5, MPV 7.2 L, Gran % 77.6 H, Lymphocytes % 8.9 L, Monocytes % 7.3, Eosinophils % 6.0 H, Basophils % 0.2, Absolute Granulocytes 5.3, Absolute Lymphocytes 0.6 L, Absolute Monocytes 0.5, Absolute Eosinophils 0.4, Absolute Basophils 0 12/02/17 1930: Anion Gap 8, Estimated GFR 51 L, Glucose 100 H, Calcium 7.8 L, Phosphorus 3.3 , Magnesium 1.8, Total Bilirubin 0.8, AST 14 L, ALT 22, Albumin 2.5 L 12/02/17 0916: Levetiracetam Cancelled 12/02/17 0640: PT 41.9 H, INR 3.79 H 12/02/17 0545: pH 7.54 H, pCO2 26 L, pO2 72 L, HCO3 22, ABG O2 Sat (Measured) 95.0 L, P-50 (Temp Corrected) N, Carboxyhemoglobin 0.3 L, O2 Concentration % .30, Respiration Rate 16, O2 Delivery Method VENT, Vent Mode A/C, Expiratory Pressure 5, Tidal Volume 550, Phlebotomy Draw Site RIGHT RADIAL 12/02/17 0500: Valproic Acid 54.5 12/02/17 0500: Anion Gap 7, Estimated GFR 43 L, Glucose 110 H, Calcium 7.7 L, Phosphorus 2.5 , Magnesium 1.7, Total Bilirubin 0.7, AST 14 L, ALT 24, Albumin 2.4 L, CBC w Diff NO MAN DIFF REQ, RBC 3.30 L, MCV 91.6, MCH 31.1 H, MCHC 33.9, RDW 13.6, MPV 7.7, Gran % 82.1 H, Lymphocytes % 7.6 L, Monocytes % 5.0, Eosinophils % 5.2 H, Basophils % 0.1, Absolute Granulocytes 5.5, Absolute Lymphocytes 0.5 L, Absolute Monocytes 0.3, Absolute Eosinophils 0.3, Absolute Basophils 0, Levetiracetam Pending 12/01/17 0320: Anion Gap 6, Estimated GFR 55 L, Glucose 127 H, Calcium 8.1 L, Phosphorus 2.1 L, Magnesium 1.8, Total Bilirubin 1.1, AST 15 L, ALT 24, Albumin 2.7 L, PT 44.1 *H, INR 3.99 H, CBC w Diff NO MAN DIFF REQ, RBC 3.44 L, MCV 91.5, MCH 31.2 H, MCHC 34.1, RDW 13.5, MPV 7.9, Gran % 77.2 H, Lymphocytes % 11.7 L, Monocytes % 5.9, Eosinophils % 4.8, Basophils % 0.4, Absolute Granulocytes 6.0, Absolute Lymphocytes 0.9 L, Absolute Monocytes 0.5, Absolute Eosinophils 0.4, Absolute Basophils 0 11/30/17 1810: pH 7.43, pCO2 35, pO2 213 H, HCO3 23, ABG O2 Sat (Measured) 99.0, Carboxyhemoglobin 0.2 L, O2 Concentration % 80, Respiration Rate 16, O2 Delivery Method VENT, Vent Mode CMV, Expiratory Pressure 5, Tidal Volume 550, Phlebotomy Draw Site RIGHT RADIAL Microbiology 11/30 2133 UPPER RESP: Surveillance Culture - CAN Cancelled: Cancelled via OE: ERROR 11/30 2133 GI: Surveillance Culture - CAN Cancelled: Cancelled via OE: ERROR 11/30 1644 LOWER RESP: Respiratory Culture - COMP 11/30 1644 LOWER RESP: Gram Stain - COMP Microbiology 11/30 2133 UPPER RESP: Surveillance Culture - CAN Cancelled: Cancelled via OE: ERROR 11/30 2133 GI: Surveillance Culture - CAN Cancelled: Cancelled via OE: ERROR 11/30 1644 LOWER RESP: Respiratory Culture - COMP 11/30 1644 LOWER RESP: Gram Stain - COMP Vital Signs Date Time Temp Pulse Resp B/P B/P Pulse O2 O2 Flow FiO2 Mean Ox Delivery Rate 12/03 0830 35 12/03 0551 35 12/03 0324 35 12/03 0313 98 Ventilator 35% 12/03 0038 35 12/02 2347 94 Ventilator 35% 12/02 2250 98.9 83 18 128/85 91 Ventilator 35% 12/02 2210 35 12/02 2000 94 Ventilator 30% 12/02 1905 30 12/02 1600 30 08 1600 98.0 96 22 148/80 98 Ventilator 30% 12/02 1600 98 Ventilator 30% 12/02 1425 30 08/ 1200 97 Ventilator 30% 12/02 1200 98.2 88 20 124/82 97 Ventilator 30% 12/02 1134 30
[2017-12-03 12:00] VITALS: BP 146/82
--- NOTE | 2017-12-03 14:52 | PN- Neurology ---
Subjective Subjective: More alert today at times opens eyes spontaneously. Had EEG > prelim "slow waves , no seizure activity". Review of Systems: none. Objective Vital Signs and I&Os Vital Signs Date Time Temp Pulse Resp B/P B/P Pulse O2 O2 Flow FiO2 Mean Ox Delivery Rate 12/03 1140 35 12/03 0830 35 12/03 0800 97.8 76 16 146/100 96 Ventilator 35% 12/03 0551 35 12/03 0324 35 12/03 0313 98 Ventilator 35% 12/03 0038 35 12/02 2347 94 Ventilator 35% 12/02 2250 98.9 83 18 128/85 91 Ventilator 35% 12/02 2210 35 12/02 2000 94 Ventilator 30% 12/02 1905 30 12/02 1600 30 12/02 1600 98.0 96 22 148/80 98 Ventilator 30% 12/02 1600 98 Ventilator 30% Intake & Output 12/03 1600 12/03 0800 12/03 0000 12/02 1600 12/02 0800 12/02 0000 Intake Total 1000 1200 1817 1046 1194 Output Total 395 520 525 635 440 Balance 367 444 2730 411 754 Intake, IV 1000 1200 1597 1046 1194 Intake, Other 220 Number 0 Bowel Movements Output, 25 50 50 25 25 Gastric Drainage Output, Urine 370 470 475 610 415 Patient 233 lb 229 lb Weight Weight Bed scale Measurement Method Physical Exam: Hypersomnolent. Intubated. Opens eyes. DOMONIQUE. Face symmetric. Current Medications: Current Medications Sig/Miladis Start time Last Medication Dose Route Stop Time Status Admin Acetaminophen 1,000 MG Q6P PRN 11/29 0915 12/02 N/A 1 UNIT IV 1430 Artificial Tears 2 GTT 4 TIMES/DAY 12/03 0900 12/03 OPH 1225 Atropine Sulfate 1 MG ONE PRN 12/02 1215 AC IV Ceftriaxone Sodium 1,000 MG 12/02 AC 12/02 IV 2114 Dextrose/Sodium 1,000 ML Q20H 12/03 1100 AC 12/03 Chloride IV 1138 Dextrose/Sodium 1,000 ML Q13H 12/03 0845 DC 12/03 Chloride IV 0916 Levetiracetam 1,000 MG Q12 11/30 2100 12/03 Sodium Chloride 100 ML IV 0746 Levothyroxine Sodium 0.125 MG DAILY 12/02 1513 AC 12/03 PO 0746 Linaclotide 290 MCG DAILY 12/02 1515 12/03 PO 0746 Lorazepam 1 MG Q6-PRN PRN 11/29 2200 AC 12/02 IV 1741 Omeprazole 40 MG DAILY AC 12/04 07 AC PO Pantoprazole Sodium 40 MG DAILY 12/01 0900 VA 12/03 IV 0746 Propofol 1,000 MG Q10H 12/02 0930 DC 12/02 N/A 1 UNIT IV 0932 Senna 187 MG AT BEDTIME 12/02 2100 12/02 PO 2124 Sodium Chloride 1,000 ML Q8H 12/02 0915 VA 12/02 IV 2119 Thiamine HCl 500 MG Q8H 12/02 1800 CAN Sodium Chloride 250 ML IV Thiamine HCl 500 MG Q8 12/02 1715 CAN IV Valproate Sodium 750 MG Q12 11/30 2099 12/03 Sodium Chloride 50 ML IV 0944 Results Last 24 Hours of Lab Results: Laboratory Tests 12/03 12/03 0750 0555 Blood Gas pH (7.35 - 7.45 PH) 7.47 H pCO2 (35 - 45 TORR) 28 L pO2 (80 - 100 TORR) 89 HCO3 (21 - 28 MEQ/L) 20 L ABG O2 Sat (Measured) (>96.0 %) 97.0 P-50 (Temp Corrected) N Carboxyhemoglobin (1.5 - 5.0 %) 0.3 L O2 Concentration % .35 Respiration Rate (BPM) 16 O2 Delivery Method VENT Vent Mode A/C Expiratory Pressure (CMH2O/P) 5 Tidal Volume (CC) 500 Miscellaneous Phlebotomy Draw Site RIGHT RADIAL Urines Urine Color (YEL,AMB,STR) [place] Urine Clarity (CLEAR) HAZY H Urine pH (5.0 - 8.0) 6.0 Ur Specific [place] (1.001 - 1.035) >= 1.030 Urine Protein (NEG,<30 MG/DL) 100 H Urine Ketones (NEG) 15 H Urine Nitrite (NEG) NEG Urine Bilirubin (NEG) NEG@ICTO Urine Urobilinogen (0.1 - 1.0 EU/dl) 0.2 Ur Leukocyte Esterase (NEG) NEG Ur Microscopic SEDIMENT EXAMINED Urine RBC (0 - 5 /HPF) >75 H Urine WBC (0 - 2 /HPF) 3-5 H Ur Epithelial Cells (NONE,FEW) RARE Urine Bacteria (NEG/NONE) FEW H Granular Casts (NONE /LPF) RARE H Urine Hemoglobin (NEG) LARGE H Urine Glucose (N MG/DL) NEG 12/03 12/02 0450 1930 Chemistry Sodium (137 - 145 mmol/L) 140 139 Potassium (3.5 - 5.1 mmol/L) 4.2 3.9 Chloride (98 - 107 mmol/L) 112 H 110 H Carbon Dioxide (22 - 30 mmol/L) 22 21 L Anion Gap (5 - 16) 6 8 BUN (9 - 20 mg/dL) 14 13 Creatinine (0.7 - 1.2 mg/dL) 1.3 H 1.4 H Estimated GFR (>60 ml/min) 55 L 51 L Glucose (65 - 99 mg/dL) 105 H 100 H Calcium (8.4 - 10.2 mg/dL) 7.7 L 7.8 L Phosphorus (2.5 - 4.5 mg/dL) 3.1 3.3 Magnesium (1.6 - 2.3 mg/dL) 1.7 1.8 Total Bilirubin (0.2 - 1.3 mg/dL) 0.8 0.8 AST (17 - 59 U/L) 15 L 14 L ALT (21 - 72 U/L) 24 22 Albumin (3.5 - 5.0 g/dL) 2.5 L 2.5 L Coagulation PT (9.4 - 12.5 SEC) 38.6 H INR (0.90 - 1.17) 3.50 H Hematology CBC w Diff NO MAN DIFF REQ WBC (4.8 - 10.8 /CUMM) 6.8 RBC (4.70 - 6.10 /CUMM) 3.40 L Hgb (14.0 - 18.0 G/DL) 10.7 L Hct (42 - 52 %) 31.1 L MCV (80.0 - 94.0 FL) 91.5 MCH (27.0 - 31.0 PG) 31.5 H MCHC (33.0 - 37.0 G/DL) 34.4 RDW (11.5 - 14.5 %) 13.5 Plt Count (130 - 400 /CUMM) 123 L MPV (7.4 - 10.4 FL) 7.2 L Gran % (42.2 - 75.2 %) 77.6 H Lymphocytes % (20.5 - 51.1 %) 8.9 L Monocytes % (1.7 - 9.3 %) 7.3 Eosinophils % (0 - 5 %) 6.0 H Basophils % (0.0 - 2.0 %) 0.2 Absolute Granulocytes (1.4 - 6.5 /CUMM) 5.3 Absolute Lymphocytes (1.2 - 3.4 /CUMM) 0.6 L Absolute Monocytes (0.10 - 0.60 /CUMM) 0.5 Absolute Eosinophils (0.0 - 0.7 /CUMM) 0.4 Absolute Basophils (0.0 - 0.2 /CUMM) 0 Assessment/Plan Assessment: 67 year old recovering from status epilepticus after missing doses of his AEDs. Now stable without any further seizures. Plan: Recommend extubating today. C/w current meds. Monitor INR in light of the addition of Depakote. YC
[2017-12-03 16:00] VITALS: BP 132/84
--- NOTE | 2017-12-03 21:01 | ELECTROENCEPHALOGRAM REPORT ---
Electroencephalogram Report Electroencephalogram Results Date of service: 12/03/17 Attending MD: Terri REEVES,Jonny Vogel Electrocardiograph Operator: Nory Ward EEG Number: [id number] Test Utilizes: 10-20 system, 21 lead 18 channel digital recording Pertinent Hx/Physical/Neuro Findings/Clin Diagnosis: 67 year old with known epilepsy who presented in status epilepticus, now recovering. Previous known R MCA stroke. Inpatient Medications: Current Medications Sig/Miladis Start time Last Medication Dose Route Stop Time Status Admin Acetaminophen 1,000 MG Q6P PRN 11/29 0915 AC 12/02 N/A 1 UNIT IV 1430 Artificial Tears 2 GTT 4 TIMES/DAY 12/03 0900 AC 12/03 OPH 1621 Atropine Sulfate 1 MG ONE PRN 12/02 1215 AC IV Ceftriaxone Sodium 1,000 MG 2000 12/03 1999 AC 12/03 IV 2015 Dextrose/Sodium 1,000 ML Q20H 12/03 1100 AC 12/03 Chloride IV 1138 Dextrose/Sodium 1,000 ML Q13H 12/03 0845 DC 12/03 Chloride IV 0916 Lactulose 20 GM BID 12/03 2100 AC PO Levetiracetam 1,000 MG Q12 11/30 2099 AC 12/03 Sodium Chloride 100 ML IV 2015 Levothyroxine Sodium 0.125 MG DAILY AC 12/02 1513 AC 12/03 PO 0746 Linaclotide 290 MCG DAILY 12/02 1515 AC 12/03 PO 0746 Lorazepam 1 MG Q6-PRN PRN 11/29 2200 AC 12/02 IV 1741 Magnesium Hydroxide 30 ML AT BEDTIME PRN 12/03 1815 AC PO Omeprazole 40 MG DAILY AC 12/04 0700 AC PO Pantoprazole Sodium 40 MG DAILY 12/01 0900 DC 12/03 IV 0746 Senna 187 MG AT BEDTIME 12/02 2100 AC 12/02 PO 2124 Sodium Chloride 1,000 ML Q8H 12/02 0915 DC 12/02 IV 2119 Valproate Sodium 750 MG Q12 11/30 2099 AC 12/03 Sodium Chloride 50 ML IV 0944 Interpretation: The recording demonstrates a disruption of normal rhythms. The background is composed of low amplitude 5-15 microvolt alpha rhythms at around 8 Hertz. Occasional dysrhythmic slowing with high amplitude sharps is seen in the bifrontal regions. Slowing and low amplitude is notable focally within the right frontotemporal region. No other paroxysmal sharps or spikes appreciated. Impression: Abnormal recording suggestive of mild global cerebral dysfunction without any suggestion of electrographic seizure activity. There is also focal slowing within the right MCA distribution commensurate with the known past MCA infarction.
[2017-12-04] VITALS: BP 120/84
[2017-12-04 04:44] LABS: ABSOLUTE BASOPHIL COUNT 0 /CUMM (0.0-0.2); ABSOLUTE EOSINOPHIL COUNT 0.4 /CUMM (0.0-0.7); ABSOLUTE GRANULOCYTE CT 5.8 /CUMM (1.4-6.5); ABSOLUTE LYMPH COUNT 0.5 /CUMM (1.2-3.4); ABSOLUTE MONOCYTE COUNT 0.5 /CUMM (0.10-0.60); BASOPHIL % 0.1 % (0.0-2.0); EOSINOPHIL % 5.4 % (0-5); GRANULOCYTE % 81.4 % (42.2-75.2); MEAN CORPUSCULAR HGB 30.7 PG (27.0-31.0); MEAN CORPUSCULAR VOLUME 90.4 FL (80.0-94.0); MEAN PLATELET VOLUME 6.7 FL (7.4-10.4); PLATELET COUNT 131 /CUMM (130-400); RBC DISTRIBUTION WIDTH 13.5 % (11.5-14.5); RED BLOOD CELL CT 2.78 /CUMM (4.70-6.10); WHITE BLOOD CELL COUNT 7.2 /CUMM (4.8-10.8)
[2017-12-04 04:49] LABS: HEMATOCRIT 25.1 % (42-52)
--- NOTE | 2017-12-04 06:50 | PN- Resident CRCU ---
Subjective HPI/CRCU Issues: Breakthrough seizures status post extubation today LALO - resolved Right hip pain Acute drop in H&H - less likely dilutional INR - 2.99 today 24 Hour Events: Remained hemodynamically stable while on intubation. Started on tube feeds yesterday. No further episodes of seizures off propofol, EEG negative for active seizures. He responded to commands had a weaning trial in the morning and got extubated. Objective Vital Signs & I&O Last 8 Hrs of Vitals and I&O: Vital Signs Date Time Temp Pulse Resp B/P B/P Pulse O2 O2 Flow FiO2 Mean Ox Delivery Rate 12/04 0626 35 12/04 0400 97 Ventilator 35% 12/04 0259 35 12/04 0100 35 12/04 0000 98.8 86 16 120/84 96 Ventilator 35% 12/04 0000 97 Ventilator 35% 12/03 2232 35 12/03 2000 94 Ventilator 35% 12/03 1915 35 / 1615 35 / 1600 98 Ventilator 35% 12/03 1600 98.5 93 16 132/84 98 Ventilator 35% 12/03 1430 35 12/03 1200 98 Ventilator 35% 12/03 1200 97.8 92 16 146/82 98 Ventilator 35% 12/03 1140 35 / 0830 35 / 0800 97.8 76 16 146/100 96 Ventilator 35% 12/03 0800 96 Ventilator 35% Intake & Output 12/04 0800 / 0000 12/03 1600 Intake Total 604 1644 891 Output Total 450 450 275 Balance 154 1194 616 Intake, IV 440 694 Intake, Tube 204 204 67 Feeding Intake, Tube 400 1000 130 Irrigant Number 0 Bowel Movements Output, Urine 450 450 275 Intake & Output 12/04 0800 Intake Total 604 Output Total 450 Balance 154 Intake, Tube 204 Feeding Intake, Tube 400 Irrigant Output, Urine 450 Exam General Appearance: well developed/nourished, alert, awake, lethargic Head: atraumatic, normal appearance Ears, Nose, Throat: normal pharynx, drooling present Neck: normal inspection, supple Respiratory: normal breath sounds, chest non-tender, quiet respiration Cardiovascular: regular rate/rhythm, normal peripheral pulses Weaning Parameters NIF: 35 Minute Volume: 16.0 Resp rate: 33 Vt: 485 Heart Rate: 96 Weaning Schedule Start Time: 1810 Minute Volume: 14.2 Resp Rate: 25 Vt: 570 Heart Rate: 107 End Time: 2110 Minute Volume: 9.33 Resp Rate: 23 Vt: 430 Heart Rate: 92 IV Drips IV Drips: none Nutrition Nutrition: NPO Current Medications: Current Medications Sig/Miladis Start time Last Medication Dose Route Stop Time Status Admin Acetaminophen 1,000 MG Q6P PRN 11/29 914 12/02 N/A 1 UNIT IV 1430 Artificial Tears 2 GTT 4 TIMES/DAY 12/03 09 AC 12/04 OPH 1353 Atropine Sulfate 1 MG ONE PRN 12/02 1215 AC IV Ceftriaxone Sodium 1,000 MG 2000 12/03 1999 DC 12/03 IV 2015 Dextrose/Sodium 1,000 ML Q20H 12/03 1100 DC 12/03 Chloride IV 1138 Erythromycin 1 EVERETT 4 TIMES/DAY 12/04 899 AC 12/04 OPH 1353 Lactulose 20 GM BID 12/03 2100 AC 12/04 PO 0752 Levetiracetam 1,000 MG Q12 11/30 2100 AC 12/04 Sodium Chloride 100 ML IV 0752 Levothyroxine Sodium 0.125 MG DAILY AC 12/02 1513 AC 12/04 PO 0625 Linaclotide 290 MCG DAILY 12/02 1515 AC 12/04 PO 0752 Lorazepam 1 MG Q6-PRN PRN 11/29 2200 AC 12/02 IV 1741 Magnesium Hydroxide 30 ML AT BEDTIME PRN 12/03 1815 AC PO Magnesium Sulfate 1 GM ONCE ONE 12/04 0700 DC 12/04 Dextrose/Water 100 ML IV 12/04 1059 0753 Omeprazole 40 MG DAILY AC 12/04 0700 DC PO Ondansetron HCl 4 MG Q6P PRN 12/04 1100 AC 12/04 IV 1057 Ondansetron HCl 0 .STK-MED ONE 12/04 1057 DC .ROUTE Pantoprazole Sodium 40 MG DAILY 12/04 09 AC 12/04 IV 0752 Senna 187 MG AT BEDTIME 12/02 2100 AC 12/03 PO 2103 Sodium Phosphate 1 UNIT ONCE ONE 12/04 1100 DC FL 12/04 1101 Valproate Sodium 750 MG Q12 11/30 2100 AC 12/04 Sodium Chloride 50 ML IV 0928 Impression/Plan Impression/Problem List Impression: 67-year-old male with PMH of Seizure(on Keppra 500 BID) 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 The patient presented to [facility] with complaint of tonic- clonic seizures and unresponsivenes. He reports that he was diagnosed with seizures in 2013 and has been compliant with his medication KEPPRA 500 twice a day. He does not remember if he took the medication on the day of admission. However he reports being compliant with his medication in general. She also denies any recent changes to his medications. His medication list was confirmed with [facility], last time he had a refill for all his meds including Keppra and warfarin was on 11/16/17 from [facility]. Possibly related to non-compliance, need to rule out acute stroke. Assessment: Continue to monitor in ICU for the following condition: Respiratory Extubated today. Possible aspiration pneumonia Afebrile on admission WBC was 14.1, bands 2, segmented neutrophils 87. LRC and blood culture were negative * Chest x-ray :Hypoexpanded lungs with bronchovascular crowding. No dense consolidation. * completed 5 day course of ceftriaxone. Cardiology Transient complete heart block in the setting of first-degree heart block: No more pauses. stable so far. Hematology H&H dropped to 8.6/25 from 02/20. Guiac negative. Recheck at 3pm, if further drops we will get CT abdomen and pelvis to rule out retroperitoneal bleed in the setting of supratherapeutic INR. #History of DVT on Coumadin INR -2.99 today As per discussion with his sister, the patient has history of DVT which resulted in a stroke through what his sister think is patent foramen ovale. 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 * Monitor INR daily # Thrombocytopenia Platlete count dropped to the 90's - improving - today 131. MSK #right hip pain: Most likely due to muscle spasm * IV Tylenol as needed for pain * Xray suspicious of neck deformity. * Follow-up on CT of the right hip when stable - probably today Metabolic #LALO: resolved. alimentary Indirect Hyperbilirubinemia/ most likely Gilbert syndrome On admission his bilirubin was 2.4, LFTs normal. Reviewing the patient's chart showed that he had similar episodes during previous admissions Note from Dr. West back in 2013 suggested that the patient might have Gilbert disease Currently the patient is n.p.o. which might have triggered this hyperbilirubinemia NPO for now, will obtain formal swallow eval tomorrow. Constipation Patient had history of constipation and he remained on multiple medications at home. He did not have a bowel movement till yesterday for which he received milk of mag, suppository. He had bowel movement today morning. Guiac negative. Neurology #Recurrent seizure : Initially loaded with Keppra, as continued to have seizures started on valproic acid as well. Due to continued seizures despite and 2 antiepileptics he was intubated and started on IV propofol drip. Yesterday patient sustained a 6 second posteriorly to perform a stapled off. Due to concerns of meningitis was broadly covered with acyclovir, metronidazole, ceftriaxone till yesterday. No signs of meningitis. LP not done as anticoagulated. * Continue Keppra 1000 mg twice daily * Continue valproic acid 750 mg twice daily * EEG negative for ongoing seizure. * Keep n.p.o. #history of old right MCA territory infarct with residual left-sided weakness #history of chronic medical conditions including hypertension, hyperlipidemia, BPH, hypothyroidism: We will continue his home meds # Chronic tremors on right hand For updates you can call his sister Nancy [phone] Full code DVT prophylaxis ALPS - elevated INR Problem List: 1. CVA 2. Hemiparesis 3. DVT prophylaxis 4. Full code status 5. Seizure 6. Status epilepticus 7. Constipation Pain Ratin Tomorrow's Labs & Rationales: cbc, icu bundle Plan DVT/Prophylaxis: mechanical
[2017-12-04 08:00] VITALS: BP 138/88
--- NOTE | 2017-12-04 09:18 | PN- CRCU ---
Subjective HPI/Critical Care Issues: No seizures today Weanng More awake Afebrile Objective Current Medications: Current Medications Sig/Miladis Start time Last Medication Dose Route Stop Time Status Admin Acetaminophen 1,000 MG Q6P PRN 11/29 914 12/02 N/A 1 UNIT IV 1430 Artificial Tears 2 GTT 4 TIMES/DAY 12/03 09 AC 12/04 OPH 0752 Atropine Sulfate 1 MG ONE PRN 12/02 1215 IV Ceftriaxone Sodium 1,000 MG 2000 12/03 1999 AC 12/03 IV 2015 Dextrose/Sodium 1,000 ML Q20H 12/03 1100 DC 12/03 Chloride IV 1138 Dextrose/Sodium 1,000 ML Q13H 12/03 0845 DC 12/03 Chloride IV 0916 Erythromycin 1 EVERETT 4 TIMES/DAY 12/04 899 AC OPH Lactulose 20 GM BID 12/03 2099 AC 12/04 PO 0752 Levetiracetam 1,000 MG Q12 11/30 2100 AC 12/04 Sodium Chloride 100 ML IV 0752 Levothyroxine Sodium 0.125 MG DAILY AC 12/02 1513 AC 12/04 PO 0625 Linaclotide 290 MCG DAILY 12/02 1515 AC 12/04 PO 0752 Lorazepam 1 MG Q6-PRN PRN 11/29 2200 AC 12/02 IV 1741 Magnesium Hydroxide 30 ML AT BEDTIME PRN 12/03 1815 PO Magnesium Sulfate 1 GM ONCE ONE 12/04 07 AC 12/04 Dextrose/Water 100 ML IV 12/04 1059 0753 Omeprazole 40 MG DAILY AC 12/04 07 DC PO Pantoprazole Sodium 40 MG DAILY 12/04 09 AC 12/04 IV 0752 Pantoprazole Sodium 40 MG DAILY 12/01 09 DC 12/03 IV 0746 Senna 187 MG AT BEDTIME 12/02 2100 AC 12/03 PO 2103 Valproate Sodium 750 MG Q12 11/30 2099 AC 12/03 Sodium Chloride 50 ML IV 2103 Vital Signs & I&O Last 24 Hrs of Vitals and I&O: Vital Signs Date Time Temp Pulse Resp B/P B/P Pulse O2 O2 Flow FiO2 Mean Ox Delivery Rate 12/04 0831 35 12/04 0626 35 12/04 0400 97 Ventilator 35% 12/04 0259 35 12/04 0100 35 12/04 0000 98.8 86 16 120/84 96 Ventilator 35% 12/04 0000 97 Ventilator 35% 12/03 2232 35 12/03 2000 94 Ventilator 35% 12/03 1915 35 12/03 1615 35 12/03 1600 98 Ventilator 35% 12/03 1600 98.5 93 16 132/84 98 Ventilator 35% 12/03 1430 35 12/03 1200 98 Ventilator 35% 12/03 1200 97.8 92 16 146/82 98 Ventilator 35% 12/03 1140 35 Intake & Output 12/04 1600 12/04 0800 12/04 0000 Intake Total 604 1644 Output Total 450 450 Balance 154 1194 Intake, IV 440 Intake, Tube 204 204 Feeding Intake, Tube 400 1000 Irrigant Output, Urine 450 450 Patient 233 lb Weight Laboratory Tests 12/04 12/04 12/03 0605 0420 1620 Blood Gas pH (7.35 - 7.45 PH) 7.47 H pCO2 (35 - 45 TORR) 32 L pO2 (80 - 100 TORR) 95 HCO3 (21 - 28 MEQ/L) 22 ABG O2 Sat (Measured) (>96.0 %) 97.0 P-50 (Temp Corrected) N Carboxyhemoglobin (1.5 - 5.0 %) 0.1 L O2 Concentration % .35 Respiration Rate (BPM) 16 O2 Delivery Method VENT Vent Mode A/C Expiratory Pressure (CMH2O/P) 5 Tidal Volume (CC) 500 Chemistry Sodium (137 - 145 mmol/L) 137 138 Potassium (3.5 - 5.1 mmol/L) 3.9 3.7 Chloride (98 - 107 mmol/L) 107 111 H Carbon Dioxide (22 - 30 mmol/L) 24 22 Anion Gap (5 - 16) 5 4 L BUN (9 - 20 mg/dL) 15 14 Creatinine (0.7 - 1.2 mg/dL) 1.0 1.1 Estimated GFR (>60 ml/min) > 60 > 60 Glucose (65 - 99 mg/dL) 121 H 112 H Calcium (8.4 - 10.2 mg/dL) 8.0 L 7.3 L Phosphorus (2.5 - 4.5 mg/dL) 2.6 2.5 Magnesium (1.6 - 2.3 mg/dL) 1.7 1.6 Total Bilirubin (0.2 - 1.3 mg/dL) 0.9 0.8 AST (17 - 59 U/L) 26 16 L ALT (21 - 72 U/L) 17 L 22 Albumin (3.5 - 5.0 g/dL) 2.4 L 2.3 L Coagulation PT (9.4 - 12.5 SEC) 33.0 H INR (0.90 - 1.17) 2.99 H Hematology CBC w Diff NO MAN DIFF REQ WBC (4.8 - 10.8 /CUMM) 7.2 RBC (4.70 - 6.10 /CUMM) 2.78 L Hgb (14.0 - 18.0 G/DL) 8.6 L Hct (42 - 52 %) 25.1 L MCV (80.0 - 94.0 FL) 90.4 MCH (27.0 - 31.0 PG) 30.7 MCHC (33.0 - 37.0 G/DL) 34.0 RDW (11.5 - 14.5 %) 13.5 Plt Count (130 - 400 /CUMM) 131 MPV (7.4 - 10.4 FL) 6.7 L Gran % (42.2 - 75.2 %) 81.4 H Lymphocytes % (20.5 - 51.1 %) 6.7 L Monocytes % (1.7 - 9.3 %) 6.4 Eosinophils % (0 - 5 %) 5.4 H Basophils % (0.0 - 2.0 %) 0.1 Absolute Granulocytes (1.4 - 6.5 /CUMM) 5.8 Absolute Lymphocytes (1.2 - 3.4 /CUMM) 0.5 L Absolute Monocytes (0.10 - 0.60 /CUMM) 0.5 Absolute Eosinophils (0.0 - 0.7 /CUMM) 0.4 Absolute Basophils (0.0 - 0.2 /CUMM) 0 Miscellaneous Phlebotomy Draw Site RIGHT RADIAL 12/03 12/03 9801 7680 Blood Gas pH (7.35 - 7.45 PH) 7.47 H pCO2 (35 - 45 TORR) 28 L pO2 (80 - 100 TORR) 89 HCO3 (21 - 28 MEQ/L) 20 L ABG O2 Sat (Measured) (>96.0 %) 97.0 P-50 (Temp Corrected) N Carboxyhemoglobin (1.5 - 5.0 %) 0.3 L O2 Concentration % .35 Respiration Rate (BPM) 16 O2 Delivery Method VENT Vent Mode A/C Expiratory Pressure (CMH2O/P) 5 Tidal Volume (CC) 500 Miscellaneous Phlebotomy Draw Site RIGHT RADIAL Urines Urine Color (YEL,AMB,STR) EVERARDO Urine Clarity (CLEAR) HAZY H Urine pH (5.0 - 8.0) 6.0 Ur Specific [place] (1.001 - 1.035) >= 1.030 Urine Protein (NEG,<30 MG/DL) 100 H Urine Ketones (NEG) 15 H Urine Nitrite (NEG) NEG Urine Bilirubin (NEG) NEG@ICTO Urine Urobilinogen (0.1 - 1.0 EU/dl) 0.2 Ur Leukocyte Esterase (NEG) NEG Ur Microscopic SEDIMENT EXAMINED Urine RBC (0 - 5 /HPF) >75 H Urine WBC (0 - 2 /HPF) 3-5 H Ur Epithelial Cells (NONE,FEW) RARE Urine Bacteria (NEG/NONE) FEW H Granular Casts (NONE /LPF) RARE H Urine Hemoglobin (NEG) LARGE H Urine Glucose (N MG/DL) NEG 12/03 12/02 12/02 0450 1930 0916 Chemistry Sodium (137 - 145 mmol/L) 140 139 Potassium (3.5 - 5.1 mmol/L) 4.2 3.9 Chloride (98 - 107 mmol/L) 112 H 110 H Carbon Dioxide (22 - 30 mmol/L) 22 21 L Anion Gap (5 - 16) 6 8 BUN (9 - 20 mg/dL) 14 13 Creatinine (0.7 - 1.2 mg/dL) 1.3 H 1.4 H Estimated GFR (>60 ml/min) 55 L 51 L Glucose (65 - 99 mg/dL) 105 H 100 H Calcium (8.4 - 10.2 mg/dL) 7.7 L 7.8 L Phosphorus (2.5 - 4.5 mg/dL) 3.1 3.3 Magnesium (1.6 - 2.3 mg/dL) 1.7 1.8 Total Bilirubin (0.2 - 1.3 mg/dL) 0.8 0.8 AST (17 - 59 U/L) 15 L 14 L ALT (21 - 72 U/L) 24 22 Albumin (3.5 - 5.0 g/dL) 2.5 L 2.5 L Coagulation PT (9.4 - 12.5 SEC) 38.6 H INR (0.90 - 1.17) 3.50 H Hematology CBC w Diff NO MAN DIFF REQ WBC (4.8 - 10.8 /CUMM) 6.8 RBC (4.70 - 6.10 /CUMM) 3.40 L Hgb (14.0 - 18.0 G/DL) 10.7 L Hct (42 - 52 %) 31.1 L MCV (80.0 - 94.0 FL) 91.5 MCH (27.0 - 31.0 PG) 31.5 H MCHC (33.0 - 37.0 G/DL) 34.4 RDW (11.5 - 14.5 %) 13.5 Plt Count (130 - 400 /CUMM) 123 L MPV (7.4 - 10.4 FL) 7.2 L Gran % (42.2 - 75.2 %) 77.6 H Lymphocytes % (20.5 - 51.1 %) 8.9 L Monocytes % (1.7 - 9.3 %) 7.3 Eosinophils % (0 - 5 %) 6.0 H Basophils % (0.0 - 2.0 %) 0.2 Absolute Granulocytes (1.4 - 6.5 /CUMM) 5.3 Absolute Lymphocytes (1.2 - 3.4 /CUMM) 0.6 L Absolute Monocytes (0.10 - 0.60 /CUMM) 0.5 Absolute Eosinophils (0.0 - 0.7 /CUMM) 0.4 Absolute Basophils (0.0 - 0.2 /CUMM) 0 Toxicology Levetiracetam Cancelled Microbiology Date/Time Procedure - Status Source Growth 12/04 814 Urine Culture - RECD URINE ROUT Impression/Plan Impression/Plan Impression/Plan: Intubated more awake and reponding Conjuctival swelling left side neck supple tenderness ribs bilat Chest mild crackles Cvs s1s2 arielle Abd soft spastic left hemiperesis RN HEMO DIALYSIS exam Moves rt side aroused by pain on passive ROM R hip stays awake briefly, follows simple commands 67 year old male with PMH Sz, 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, DVT on Warfarin, HTN, HLD, PVD, BPH, Hypothyroid, GERD, Depression with seizue disorder With * Recurrent persistant seizures, initially did not respond to Keppra and loaded with valproic acid and sub intubated and was on propofol, now propofol dcd -now better no further seizures * One episode of FEver few days ago rule out asp pna, on abx * Previous stroke with hemiparesis * Worsening poor performance status * Sinus tachycardia before now with on and off Sinus pauses and cardio on board * Rt hip pain, rule out fracture * Thrombocytopenia now new ( will follow, Not on heparin) * High INR was on warfarin, now with drop in crit, with eccymosis of the leg * Anemia with no overt signs of bleeding REC Extubate Cont iv seizure meds Cont ivf Watch INR Check cbc Check stool Will follow PT critically ill tts 39 mins
--- NOTE | 2017-12-04 10:08 | PN- Infect Dx ---
Subjective Subjective: Afebrile. He is unable to provide any history due to his mental status and the fact that he is intubated. He has had no further seizure activity. Objective Last 24 Hrs of Vital Signs/I&O Vital Signs Date Time Temp Pulse Resp B/P B/P Pulse O2 O2 Flow FiO2 Mean Ox Delivery Rate 12/04 0831 35 12/04 0800 96 Ventilator 35% 12/04 0800 98.4 85 19 138/88 96 Ventilator 35% 12/04 0626 35 12/04 0400 97 Ventilator 35% 12/04 0259 35 12/04 0100 35 08 0000 98.8 86 16 120/84 96 Ventilator 35% 12/04 0000 97 Ventilator 35% 12/03 2232 35 12/03 2000 94 Ventilator 35% 12/03 1915 35 12/03 1615 35 12/03 1600 98 Ventilator 35% 12/03 1600 98.5 93 16 132/84 98 Ventilator 35% 12/03 1430 35 12/03 1200 98 Ventilator 35% 12/03 1200 97.8 92 16 146/82 98 Ventilator 35% 12/03 1140 35 Intake & Output 12/04 1600 12/04 0800 08 0000 Intake Total 604 1644 Output Total 450 450 Balance 154 1194 Intake, IV 440 Intake, Tube 204 204 Feeding Intake, Tube 400 1000 Irrigant Output, Urine 450 450 Patient 233 lb Weight Physical Exam Other Physical Findings: He is awake and alert on the ventilator in no acute distress. He does not respond to any questions but is able to follow some commands Lungs scattered crackles Heart regular rhythm no murmur Abdomen is soft, nontender with positive bowel sounds Extremities chronic venous stasis changes both lower extremities Neuro left hemiparesis Killian catheter remains in place Results Last 24 Hours of Lab Results: Laboratory Tests 12/04 12/04 0854 0605 Blood Gas pH (7.35 - 7.45 PH) 7.48 H 7.47 H pCO2 (35 - 45 TORR) 32 L 32 L pO2 (80 - 100 TORR) 76 L 95 HCO3 (21 - 28 MEQ/L) 23 22 ABG O2 Sat (Measured) (>96.0 %) 95.0 L 97.0 P-50 (Temp Corrected) N N Carboxyhemoglobin (1.5 - 5.0 %) 0.1 L 0.1 L O2 Concentration % 35% .35 Respiration Rate (BPM) 23 16 O2 Delivery Method VENT VENT Vent Mode CPAP/PSV TRIAL A/C Expiratory Pressure (CMH2O/P) 5 5 Tidal Volume (CC) 441 500 Pressure Support (CMH2O/P) 6 Miscellaneous Phlebotomy Draw Site RIGHT RADIAL RIGHT RADIAL 12/04 12/03 0420 1620 Chemistry Sodium (137 - 145 mmol/L) 137 138 Potassium (3.5 - 5.1 mmol/L) 3.9 3.7 Chloride (98 - 107 mmol/L) 107 111 H Carbon Dioxide (22 - 30 mmol/L) 24 22 Anion Gap (5 - 16) 5 4 L BUN (9 - 20 mg/dL) 15 14 Creatinine (0.7 - 1.2 mg/dL) 1.0 1.1 Estimated GFR (>60 ml/min) > 60 > 60 Glucose (65 - 99 mg/dL) 121 H 112 H Calcium (8.4 - 10.2 mg/dL) 8.0 L 7.3 L Phosphorus (2.5 - 4.5 mg/dL) 2.6 2.5 Magnesium (1.6 - 2.3 mg/dL) 1.7 1.6 Total Bilirubin (0.2 - 1.3 mg/dL) 0.9 0.8 AST (17 - 59 U/L) 26 16 L ALT (21 - 72 U/L) 17 L 22 Albumin (3.5 - 5.0 g/dL) 2.4 L 2.3 L Coagulation PT (9.4 - 12.5 SEC) 33.0 H INR (0.90 - 1.17) 2.99 H Hematology CBC w Diff NO MAN DIFF REQ WBC (4.8 - 10.8 /CUMM) 7.2 RBC (4.70 - 6.10 /CUMM) 2.78 L Hgb (14.0 - 18.0 G/DL) 8.6 L Hct (42 - 52 %) 25.1 L MCV (80.0 - 94.0 FL) 90.4 MCH (27.0 - 31.0 PG) 30.7 MCHC (33.0 - 37.0 G/DL) 34.0 RDW (11.5 - 14.5 %) 13.5 Plt Count (130 - 400 /CUMM) 131 MPV (7.4 - 10.4 FL) 6.7 L Gran % (42.2 - 75.2 %) 81.4 H Lymphocytes % (20.5 - 51.1 %) 6.7 L Monocytes % (1.7 - 9.3 %) 6.4 Eosinophils % (0 - 5 %) 5.4 H Basophils % (0.0 - 2.0 %) 0.1 Absolute Granulocytes (1.4 - 6.5 /CUMM) 5.8 Absolute Lymphocytes (1.2 - 3.4 /CUMM) 0.5 L Absolute Monocytes (0.10 - 0.60 /CUMM) 0.5 Absolute Eosinophils (0.0 - 0.7 /CUMM) 0.4 Absolute Basophils (0.0 - 0.2 /CUMM) 0 Last 24 Hours of Santosh Results: Urine culture December 04 pending Recent Imaging Studies: EEG December 03 reveals an abnormal recording suggestive of mild global cerebral dysfunction without any suggestion of seizure activity Assessment/Plan ID Impression: Stable, with temperatures and white blood cell count remaining normal, on Ceftriaxone, Day 5 of treatment for possible aspiration pneumonia, though his chest x-rays have been negative for pneumonia. He has had no further seizures and his repeat EEG is negative for any seizure activity. Suggestion: 1. Await possible extubation later today 2. Remove Killian catheter 3. Discontinue Ceftriaxone and follow off antibiotics
--- NOTE | 2017-12-04 12:04 | RADIOLOGY REPORT ---
EXAMINATION: XR PORTABLE CHEST CLINICAL INFORMATION: Intubated. COMPARISON: 12/03/2017 TECHNIQUE: Portable frontal view of the chest was obtained. FINDINGS: Endotracheal tube tip 4.7 cm above the brennen. Enteric tube is seen projecting over the mediastinum; however, the tip is not well seen due to underpenetration. EKG leads project over the chest. The lungs are markedly hypoinflated which limits evaluation. No definite focal consolidation, pleural effusion or pneumothorax. The heart size appears enlarged; however, this is likely exaggerated due to technique. It is stable in appearance. IMPRESSION: Endotracheal tube tip 4.7 cm above the brennen. The enteric tube tip is not seen due to underpenetration of the film. The cardiomediastinal silhouette is stable and likely artifactually enlarged.
--- NOTE | 2017-12-04 13:47 | PN- Att Addend ---
Attending Addendum Attending Brief Note Patient has not had any seizures . Tolerating weaning well overnight. Arterial blood gases were drawn if they are okay patient will be extubated. Will follow recommendations from Dr. Murray and the neurologist. Vital signs are stable no fever no other changes on physical examination Intake & Output 12/04 1600 12/04 0400 12/03 1600 12/03 0400 12/02 1600 12/02 0400 Intake Total 604 1644 1891 1200 2863 1194 Output Total 450 450 256 053 7311 440 Balance 154 1194 5343 007 5478 754 Intake, IV 440 1694 1200 2643 1194 Intake, Other 220 Intake, Tube 204 204 67 Feeding Intake, Tube 400 1000 130 Irrigant Number 0 0 Bowel Movements Output, 25 50 75 25 Gastric Drainage Output, Urine 450 450 190 154 8255 415 Patient 233 lb 233 lb 229 lb Weight Weight Bed scale Measurement Method Current Medications Sig/Miladis Start time Last Medication Dose Route Stop Time Status Admin Acetaminophen 1,000 MG Q6P PRN 11/29 0915 12/02 N/A 1 UNIT IV 1430 Artificial Tears 2 GTT 4 TIMES/DAY 12/03 09 AC 12/04 OPH 0752 Atropine Sulfate 1 MG ONE PRN 12/02 1215 AC IV Ceftriaxone Sodium 1,000 MG 2000 12/03 1999 AC 12/03 IV 2015 Dextrose/Sodium 1,000 ML Q20H 12/03 1100 DC 12/03 Chloride IV 1138 Erythromycin 1 EVERETT 4 TIMES/DAY 12/04 0900 AC 12/04 OPH 0928 Lactulose 20 GM BID 12/03 2100 AC 12/04 PO 0752 Levetiracetam 1,000 MG Q12 11/30 2100 AC 12/04 Sodium Chloride 100 ML IV 0752 Levothyroxine Sodium 0.125 MG DAILY AC 12/02 1513 AC 12/04 PO 0625 Linaclotide 290 MCG DAILY 12/02 1515 AC 12/04 PO 0752 Lorazepam 1 MG Q6-PRN PRN 11/29 2200 AC 12/02 IV 1741 Magnesium Hydroxide 30 ML AT BEDTIME PRN 12/03 1815 AC PO Magnesium Sulfate 1 GM ONCE ONE 12/04 07 DC 12/04 Dextrose/Water 100 ML IV 12/04 1059 0753 Omeprazole 40 MG DAILY AC 12/04 0700 DC PO Ondansetron HCl 4 MG Q6P PRN 12/04 1100 AC 12/04 IV 1057 Ondansetron HCl 0 .STK-MED ONE 12/04 1057 DC .ROUTE Pantoprazole Sodium 40 MG DAILY 12/04 0900 AC 12/04 IV 0752 Senna 187 MG AT BEDTIME 12/02 2099 AC 12/03 PO 2103 Sodium Phosphate 1 UNIT ONCE ONE 12/04 1100 DC ME 12/04 1101 Valproate Sodium 750 MG Q12 11/30 2099 AC 12/04 Sodium Chloride 50 ML IV 0928 Laboratory Tests 12/04/17 0854: pH 7.48 H, pCO2 32 L, pO2 76 L, HCO3 23, ABG O2 Sat (Measured) 95.0 L, P-50 (Temp Corrected) N, Carboxyhemoglobin 0.1 L, O2 Concentration % 35%, Respiration Rate 23, O2 Delivery Method VENT, Vent Mode CPAP/PSV TRIAL, Expiratory Pressure 5, Tidal Volume 441, Pressure Support 6, Phlebotomy Draw Site RIGHT RADIAL 12/04/17 0605: pH 7.47 H, pCO2 32 L, pO2 95, HCO3 22, ABG O2 Sat (Measured) 97.0, P-50 (Temp Corrected) N, Carboxyhemoglobin 0.1 L, O2 Concentration % .35, Respiration Rate 16, O2 Delivery Method VENT, Vent Mode A/C, Expiratory Pressure 5, Tidal Volume 500, Phlebotomy Draw Site RIGHT RADIAL 12/04/17 0420: Anion Gap 5, Estimated GFR > 60, Glucose 121 H, Calcium 8.0 L, Phosphorus 2.6, Magnesium 1.7, Total Bilirubin 0.9, AST 26, ALT 17 L, Albumin 2.4 L, PT 33.0 H, INR 2.99 H, CBC w Diff NO MAN DIFF REQ, RBC 2.78 L, MCV 90.4, MCH 30.7, MCHC 34.0, RDW 13.5, MPV 6.7 L, Gran % 81.4 H, Lymphocytes % 6.7 L, Monocytes % 6.4, Eosinophils % 5.4 H, Basophils % 0.1, Absolute Granulocytes 5.8, Absolute Lymphocytes 0.5 L, Absolute Monocytes 0.5, Absolute Eosinophils 0.4, Absolute Basophils 0 12/03/17 1620: Anion Gap 4 L, Estimated GFR > 60, Glucose 112 H, Calcium 7.3 L, Phosphorus 2.5, Magnesium 1.6, Total Bilirubin 0.8, AST 16 L, ALT 22, Albumin 2.3 L 12/03/17 0750: Urine Color EVERARDO, Urine Clarity HAZY H, Urine pH 6.0, Ur Specific [place] >= 1.030, Urine Protein 100 H, Urine Ketones 15 H, Urine Nitrite NEG, Urine Bilirubin NEG@ICTO, Urine Urobilinogen 0.2, Ur Leukocyte Esterase NEG, Ur Microscopic SEDIMENT EXAMINED, Urine RBC >75 H, Urine WBC 3-5 H, Ur Epithelial Cells RARE, Urine Bacteria FEW H, Granular Casts RARE H, Urine Hemoglobin LARGE H, Urine Glucose NEG 12/03/17 0555: pH 7.47 H, pCO2 28 L, pO2 89, HCO3 20 L, ABG O2 Sat (Measured) 97.0, P-50 ( Temp Corrected) N, Carboxyhemoglobin 0.3 L, O2 Concentration % .35, Respiration Rate 16, O2 Delivery Method VENT, Vent Mode A/C, Expiratory Pressure 5, Tidal Volume 500, Phlebotomy Draw Site RIGHT RADIAL 12/03/17 0450: Anion Gap 6, Estimated GFR 55 L, Glucose 105 H, Calcium 7.7 L, Phosphorus 3.1 , Magnesium 1.7, Total Bilirubin 0.8, AST 15 L, ALT 24, Albumin 2.5 L, PT 38.6 H, INR 3.50 H, CBC w Diff NO MAN DIFF REQ, RBC 3.40 L, MCV 91.5, MCH 31.5 H, MCHC 34.4, RDW 13.5, MPV 7.2 L, Gran % 77.6 H, Lymphocytes % 8.9 L, Monocytes % 7.3, Eosinophils % 6.0 H, Basophils % 0.2, Absolute Granulocytes 5.3, Absolute Lymphocytes 0.6 L, Absolute Monocytes 0.5, Absolute Eosinophils 0.4, Absolute Basophils 0 12/02/17 1930: Anion Gap 8, Estimated GFR 51 L, Glucose 100 H, Calcium 7.8 L, Phosphorus 3.3 , Magnesium 1.8, Total Bilirubin 0.8, AST 14 L, ALT 22, Albumin 2.5 L 12/02/17 0916: Levetiracetam Cancelled 12/02/17 0640: PT 41.9 H, INR 3.79 H 12/02/17 0545: pH 7.54 H, pCO2 26 L, pO2 72 L, HCO3 22, ABG O2 Sat (Measured) 95.0 L, P-50 (Temp Corrected) N, Carboxyhemoglobin 0.3 L, O2 Concentration % .30, Respiration Rate 16, O2 Delivery Method VENT, Vent Mode A/C, Expiratory Pressure 5, Tidal Volume 550, Phlebotomy Draw Site RIGHT RADIAL 12/02/17 0500: Valproic Acid 54.5 12/02/17 0500: Anion Gap 7, Estimated GFR 43 L, Glucose 110 H, Calcium 7.7 L, Phosphorus 2.5 , Magnesium 1.7, Total Bilirubin 0.7, AST 14 L, ALT 24, Albumin 2.4 L, CBC w Diff NO MAN DIFF REQ, RBC 3.30 L, MCV 91.6, MCH 31.1 H, MCHC 33.9, RDW 13.6, MPV 7.7, Gran % 82.1 H, Lymphocytes % 7.6 L, Monocytes % 5.0, Eosinophils % 5.2 H, Basophils % 0.1, Absolute Granulocytes 5.5, Absolute Lymphocytes 0.5 L, Absolute Monocytes 0.3, Absolute Eosinophils 0.3, Absolute Basophils 0, Levetiracetam Pending Microbiology 12/04 814 URINE ROUT: Urine Culture - RECD Microbiology 12/04 814 URINE ROUT: Urine Culture - RECD Vital Signs Date Time Temp Pulse Resp B/P B/P Pulse O2 O2 Flow FiO2 Mean Ox Delivery Rate 12/04 1200 95 Nasal 3.0L Cannula 12/04 0831 35 12/04 0800 96 Ventilator 35% 12/04 0800 98.4 85 19 138/88 96 Ventilator 35% 12/04 0626 35 12/04 0400 97 Ventilator 35% 12/04 0259 35 12/04 0100 35 12/04 0000 98.8 86 16 120/84 96 Ventilator 35% 12/04 0000 97 Ventilator 35% 12/03 2232 35 12/03 2000 94 Ventilator 35% 12/03 1915 35 12/03 1615 35 12/03 1600 98 Ventilator 35% 12/03 1600 98.5 93 16 132/84 98 Ventilator 35% 12/03 1430 35
[2017-12-04 15:32] LABS: ABSOLUTE BASOPHIL COUNT 0 /CUMM (0.0-0.2); ABSOLUTE EOSINOPHIL COUNT 0.4 /CUMM (0.0-0.7); ABSOLUTE GRANULOCYTE CT 4.5 /CUMM (1.4-6.5); ABSOLUTE LYMPH COUNT 0.5 /CUMM (1.2-3.4); ABSOLUTE MONOCYTE COUNT 0.4 /CUMM (0.10-0.60); BASOPHIL % 0.1 % (0.0-2.0); EOSINOPHIL % 6.1 % (0-5); GRANULOCYTE % 77.2 % (42.2-75.2); HEMATOCRIT 29.7 % (42-52); MEAN CORPUSCULAR HGB 31.1 PG (27.0-31.0); MEAN CORPUSCULAR HGB CONC 34.1 G/DL (33.0-37.0); MEAN CORPUSCULAR VOLUME 91.5 FL (80.0-94.0); MEAN PLATELET VOLUME 6.9 FL (7.4-10.4); PLATELET COUNT 119 /CUMM (130-400); RBC DISTRIBUTION WIDTH 13.5 % (11.5-14.5); RED BLOOD CELL CT 3.25 /CUMM (4.70-6.10); WHITE BLOOD CELL COUNT 5.8 /CUMM (4.8-10.8)
[2017-12-04 16:00] VITALS: BP 152/98
[2017-12-04 19:28] VITALS: BP 146/90
[2017-12-05] VITALS: BP 137/75
[2017-12-05 04:55] LABS: ABSOLUTE BASOPHIL COUNT 0 /CUMM (0.0-0.2); ABSOLUTE EOSINOPHIL COUNT 0.4 /CUMM (0.0-0.7); ABSOLUTE LYMPH COUNT 0.6 /CUMM (1.2-3.4); ABSOLUTE MONOCYTE COUNT 0.5 /CUMM (0.10-0.60); BASOPHIL % 0.2 % (0.0-2.0); EOSINOPHIL % 6.7 % (0-5); GRANULOCYTE % 73.9 % (42.2-75.2); HEMATOCRIT 30.2 % (42-52); MEAN CORPUSCULAR HGB 31.4 PG (27.0-31.0); MEAN CORPUSCULAR HGB CONC 34.5 G/DL (33.0-37.0); MEAN CORPUSCULAR VOLUME 91.2 FL (80.0-94.0); MEAN PLATELET VOLUME 6.9 FL (7.4-10.4); PLATELET COUNT 116 /CUMM (130-400); RED BLOOD CELL CT 3.32 /CUMM (4.70-6.10); WHITE BLOOD CELL COUNT 5.5 /CUMM (4.8-10.8)
[2017-12-05 05:00] LABS: PT 24.4 SEC (9.4-12.5)
--- NOTE | 2017-12-05 06:54 | PN- Resident CRCU ---
Subjective HPI/CRCU Issues: Breakthrough seizures - no more episodes, on IV antiepileptics LALO - resolved Right hip pain INR 2.2 24 Hour Events: More awake, arousable. able to communicate. No overnight issues. Left eye still red. Objective Vital Signs & I&O Last 8 Hrs of Vitals and I&O: Vital Signs Date Time Temp Pulse Resp B/P B/P Pulse O2 O2 Flow FiO2 Mean Ox Delivery Rate 12/06 799 97.7 84 26 130/80 96 Nasal 2.0L Cannula 12/05 0800 96 Nasal 2.0L Cannula 12/05 0400 92 Nasal 2.0L Cannula 12/05 0000 96 Nasal 2.0L Cannula 12/05 0000 99.5 78 26 137/75 96 Nasal 2.0L Cannula 12/04 2000 Nasal 3.0L Cannula 12/04 1928 80 146/90 12/04 1834 91 170/100 12/04 1600 97.9 82 22 152/98 97 Nasal 3.0L Cannula 12/04 1600 97 Nasal 3.0L Cannula Intake & Output 12/05 1600 12/05 0800 12/05 0000 Intake Total 384 418.1 Output Total 900 670 Balance -516 -251.9 Intake, IV 384 418.1 Intake, Oral 0 Number 1 Bowel Movements Output, Urine 900 670 Intake & Output 12/05 0800 Intake Total 384 Output Total 900 Balance -516 Intake, IV 384 Intake, Oral 0 Output, Urine 900 Exam General Appearance: well developed/nourished, alert, awake, comfortable, lethargic Head: atraumatic, normal appearance Ears, Nose, Throat: normal pharynx, normal ENT inspection Neck: normal inspection, supple Respiratory: normal breath sounds, chest non-tender, no respiratory distress, quiet respiration Cardiovascular: regular rate/rhythm, normal peripheral pulses Gastrointestinal: normal bowel sounds, soft, non-tender Extremities: normal inspection, decreased strength and spasticity on left side, tremor on right side Cranial Nerves: normal speech, PERRL Skin: intact, normal color Weaning Parameters NIF: 32 Minute Volume: 17.0 Resp rate: 26 Vt: 654 Heart Rate: 82 Weaning Schedule Start Time: 0855 Minute Volume: 15.3 Resp Rate: 24 Vt: 640 Heart Rate: 93 End Time: 1011 Minute Volume: 12.6 Resp Rate: 24 Vt: 525 Heart Rate: 92 IV Drips IV Drips: D51/2NS @ 50ml/hr Nutrition Nutrition: NPO Current Medications: Current Medications Sig/Miladis Start time Last Medication Dose Route Stop Time Status Admin Acetaminophen 1,000 MG Q6P PRN 11/29 914 AC 12/04 N/A 1 UNIT IV 2211 Artificial Tears 2 GTT 4 TIMES/DAY 12/03 09 AC 12/05 OPH 0821 Atropine Sulfate 1 MG ONE PRN 12/02 1215 AC IV Ceftriaxone Sodium 1,000 MG 12/02 DC 12/03 IV 2015 Dextrose/Sodium 1,000 ML Q20H 12/04 1900 AC 12/04 Chloride IV 12/05 1459 1926 Erythromycin 1 EVERETT 4 TIMES/DAY 12/04 09 AC 12/05 OPH 0820 Lactulose 20 GM BID 12/03 2100 AC 12/04 PO 075 Levetiracetam 1,000 MG Q12 11/30 2100 AC 12/05 Sodium Chloride 100 ML IV 1110 Levothyroxine Sodium 62.5 MCG DAILY AC 12/05 1142 UNVr IV Levothyroxine Sodium 0.125 MG DAILY AC 12/02 1513 AC 12/04 PO 0625 Linaclotide 290 MCG DAILY 12/02 1515 AC 12/04 PO 0752 Lorazepam 1 MG Q6-PRN PRN 11/29 2200 AC 12/02 IV 1741 Magnesium Hydroxide 30 ML AT BEDTIME PRN 12/03 1815 AC PO Metoprolol Tartrate 0 .STK-MED ONE 12/04 1833 DC IV Metoprolol Tartrate 5 MG ONCE ONE 12/04 1815 DC 12/04 IV 12/04 1816 1834 Ondansetron HCl 4 MG Q6P PRN 12/04 1100 AC 12/04 IV 1057 Pantoprazole Sodium 40 MG DAILY 12/04 09 AC 12/05 IV 1110 Senna 187 MG AT BEDTIME 12/02 2100 AC 12/03 PO 2103 Valproate Sodium 750 MG Q12 11/30 2099 AC 12/05 Sodium Chloride 50 ML IV 0932 Impression/Plan Impression/Problem List Impression: 67-year-old male with PMH of Seizure(on Keppra 500 BID) 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 The patient presented to [facility] with complaint of tonic- clonic seizures and unresponsivenes. He was diagnosed with seizures in 2013 and has been compliant with his medication KEPPRA 500 twice a day. He does not remember if he took the medication on the day of admission. However he reports being compliant with his medication in general. She also denies any recent changes to his medications. His medication list was confirmed with [facility], last time he had a refill for all his meds including Keppra and warfarin was on 11/16/17 from [facility]. Possibly related to non-compliance, need to rule out acute stroke. Assessment: Continue to monitor in ICU for the following condition: Respiratory Extubated today. Possible aspiration pneumonia Afebrile on admission WBC was 14.1, bands 2, segmented neutrophils 87. LRC and blood culture were negative * Chest x-ray :Hypoexpanded lungs with bronchovascular crowding. No dense consolidation. * completed 5 day course of ceftriaxone. Cardiology Transient complete heart block in the setting of first-degree heart block: No more pauses. stable so far. Right sided mediastinal shift Patient had elevated left hemidiaphragm which pushed his heart to right side. ECHO obtained which did is pending. Hematology stable H&H 02/19 #History of DVT on Coumadin INR -2.22 today As per discussion with his sister, the patient has history of DVT which resulted in a stroke through what his sister think is patent foramen ovale. 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 * Monitor INR daily # Thrombocytopenia Platlete count dropped to the 90's - improving - today 116. MSK #right hip pain: Most likely due to muscle spasm * IV Tylenol as needed for pain * Xray suspicious of neck deformity. Metabolic #LALO: resolved. alimentary Indirect Hyperbilirubinemia/ most likely Gilbert syndrome On admission his bilirubin was 2.4, LFTs normal. Reviewing the patient's chart showed that he had similar episodes during previous admissions Note from Dr. West back in 2013 suggested that the patient might have Gilbert disease Currently the patient is n.p.o. which might have triggered this hyperbilirubinemia NPO for now, not able to make for swallow eval today. we will continue fluids now. Constipation Patient had history of constipation and he remained on multiple medications at home. Had a BM yesterday. Guiac negative. Neurology #Recurrent seizure : Initially loaded with Keppra, as continued to have seizures started on valproic acid as well. Due to continued seizures despite and 2 antiepileptics he was intubated and started on IV propofol drip. He received IV acyclovir, metronidazole, ceftriaxone for few days due to concern of HSV encephalitis on his EEG, however after starting on IV propofol they resolved, so discontinued abx. Off propofol and extubated on 12/04/17. Failed swallow eval. * Continue Keppra 1000 mg twice daily * Continue valproic acid 750 mg twice daily * EEG negative for ongoing seizure. * Keep n.p.o. #history of old right MCA territory infarct with residual left-sided weakness #history of chronic medical conditions including hypertension, hyperlipidemia, BPH, hypothyroidism: We will continue his home meds # Chronic tremors on right hand For updates you can call his sister Nancy [phone] Full code DVT prophylaxis ALPS - elevated INR Problem List: 1. Fall at home 2. Gait instability 3. Seizure disorder 4. Altered mental state 5. Constipation 6. History of stroke Pain Ratin Pain Location: right hip ? Tomorrow's Labs & Rationales: cbc icu bundle Plan DVT/Prophylaxis: mechanical
[2017-12-05 08:00] VITALS: BP 130/80
--- NOTE | 2017-12-05 09:56 | PN- Att Addend ---
See Addendum Attending Addendum Attending Brief Note Patient awake seems alert. No seizures in the last 24 hours. Patient has been extubated. His vital signs are stable no fever. No major changes on physical. Will monitor 24 more hours in the ICU make sure he does not develop any new seizures and then if stable will transfer out of the unit. Intake & Output 12/05 0400 12/04 1600 12/04 0400 12/03 1600 12/03 0400 Intake Total 384 418.1 1428 1644 1891 1200 Output Total 935 793 4014 450 670 520 Balance -516 -251.9 278 1194 1221 680 Intake, IV 384 418.0 103 257 6181 1200 Intake, Oral 0 0 Intake, Tube 296 204 67 Feeding Intake, Tube 760 1000 130 Irrigant Number 1 1 0 Bowel Movements Output, 25 50 Gastric Drainage Output, Urine 665 900 6803 450 645 470 Patient 233 lb 233 lb Weight Weight Bed scale Measurement Method Current Medications Sig/Miladis Start time Last Medication Dose Route Stop Time Status Admin Acetaminophen 1,000 MG Q6P PRN 11/29 0915 12/04 N/A 1 UNIT IV 2211 Artificial Tears 2 GTT 4 TIMES/DAY 12/03 09 AC 12/05 OPH 0821 Atropine Sulfate 1 MG ONE PRN 12/02 1215 AC IV Ceftriaxone Sodium 1,000 MG 12/02 DC 12/03 IV 2015 Dextrose/Sodium 1,000 ML Q20H 12/04 1900 AC 12/04 Chloride IV 12/05 1459 1926 Erythromycin 1 EVERETT 4 TIMES/DAY 12/04 09 12/05 OPH 0820 Lactulose 20 GM BID 12/03 2100 AC 12/04 PO 0752 Levetiracetam 1,000 MG Q12 11/30 2100 AC 12/04 Sodium Chloride 100 ML IV 2104 Levothyroxine Sodium 0.125 MG DAILY AC 12/02 1513 AC 12/04 PO 0625 Linaclotide 290 MCG DAILY 12/02 151 AC 12/04 PO 0752 Lorazepam 1 MG Q6-PRN PRN 11/29 2200 AC 12/02 IV 1741 Magnesium Hydroxide 30 ML AT BEDTIME PRN 12/03 1815 AC PO Magnesium Sulfate 1 GM ONCE ONE 12/04 07 DC 12/04 Dextrose/Water 100 ML IV 12/04 1059 0753 Metoprolol Tartrate 0 .STK-MED ONE 12/04 1833 DC IV Metoprolol Tartrate 5 MG ONCE ONE 12/04 181 DC 12/04 IV 12/04 181 183 Ondansetron HCl 4 MG Q6P PRN 12/04 1100 AC 12/04 IV 1057 Ondansetron HCl 0 .STK-MED ONE 12/04 1057 DC .ROUTE Pantoprazole Sodium 40 MG DAILY 12/04 0900 AC 12/04 IV 0752 Senna 187 MG AT BEDTIME 12/02 2099 AC 12/03 PO 2103 Sodium Phosphate 1 UNIT ONCE ONE 12/04 1100 DC RI 12/04 1101 Valproate Sodium 750 MG Q12 11/30 2099 AC 12/05 Sodium Chloride 50 ML IV 0932 Laboratory Tests 12/05/17 0430: Anion Gap 4 L, Estimated GFR > 60, Glucose 101 H, Calcium 8.0 L, Phosphorus 2.8, Magnesium 1.8, Total Bilirubin 0.9, AST 31, ALT 31, Albumin 2.4 L, PT 24.4 H, INR 2.22 H, CBC w Diff NO MAN DIFF REQ, RBC 3.32 L, MCV 91.2, MCH 31.4 H, MCHC 34.5, RDW 13.0, MPV 6.9 L, Gran % 73.9, Lymphocytes % 10.9 L, Monocytes % 8.3, Eosinophils % 6.7 H, Basophils % 0.2, Absolute Granulocytes 4.0, Absolute Lymphocytes 0.6 L, Absolute Monocytes 0.5, Absolute Eosinophils 0.4, Absolute Basophils 0 12/04/17 1500: CBC w Diff NO MAN DIFF REQ, RBC 3.25 L, MCV 91.5, MCH 31.1 H, MCHC 34.1, RDW 13.5, MPV 6.9 L, Gran % 77.2 H, Lymphocytes % 9.2 L, Monocytes % 7.4, Eosinophils % 6.1 H, Basophils % 0.1, Absolute Granulocytes 4.5, Absolute Lymphocytes 0.5 L, Absolute Monocytes 0.4, Absolute Eosinophils 0.4, Absolute Basophils 0 12/04/17 0854: pH 7.48 H, pCO2 32 L, pO2 76 L, HCO3 23, ABG O2 Sat (Measured) 95.0 L, P-50 (Temp Corrected) N, Carboxyhemoglobin 0.1 L, O2 Concentration % 35%, Respiration Rate 23, O2 Delivery Method VENT, Vent Mode CPAP/PSV TRIAL, Expiratory Pressure 5, Tidal Volume 441, Pressure Support 6, Phlebotomy Draw Site RIGHT RADIAL 12/04/17 0605: pH 7.47 H, pCO2 32 L, pO2 95, HCO3 22, ABG O2 Sat (Measured) 97.0, P-50 (Temp Corrected) N, Carboxyhemoglobin 0.1 L, O2 Concentration % .35, Respiration Rate 16, O2 Delivery Method VENT, Vent Mode A/C, Expiratory Pressure 5, Tidal Volume 500, Phlebotomy Draw Site RIGHT RADIAL 12/04/17 0420: Anion Gap 5, Estimated GFR > 60, Glucose 121 H, Calcium 8.0 L, Phosphorus 2.6, Magnesium 1.7, Total Bilirubin 0.9, AST 26, ALT 17 L, Albumin 2.4 L, PT 33.0 H, INR 2.99 H, CBC w Diff NO MAN DIFF REQ, RBC 2.78 L, MCV 90.4, MCH 30.7, MCHC 34.0, RDW 13.5, MPV 6.7 L, Gran % 81.4 H, Lymphocytes % 6.7 L, Monocytes % 6.4, Eosinophils % 5.4 H, Basophils % 0.1, Absolute Granulocytes 5.8, Absolute Lymphocytes 0.5 L, Absolute Monocytes 0.5, Absolute Eosinophils 0.4, Absolute Basophils 0 12/03/17 1620: Anion Gap 4 L, Estimated GFR > 60, Glucose 112 H, Calcium 7.3 L, Phosphorus 2.5, Magnesium 1.6, Total Bilirubin 0.8, AST 16 L, ALT 22, Albumin 2.3 L 12/03/17 0750: Urine Color EVERARDO, Urine Clarity HAZY H, Urine pH 6.0, Ur Specific [place] >= 1.030, Urine Protein 100 H, Urine Ketones 15 H, Urine Nitrite NEG, Urine Bilirubin NEG@ICTO, Urine Urobilinogen 0.2, Ur Leukocyte Esterase NEG, Ur Microscopic SEDIMENT EXAMINED, Urine RBC >75 H, Urine WBC 3-5 H, Ur Epithelial Cells RARE, Urine Bacteria FEW H, Granular Casts RARE H, Urine Hemoglobin LARGE H, Urine Glucose NEG 12/03/17 0555: pH 7.47 H, pCO2 28 L, pO2 89, HCO3 20 L, ABG O2 Sat (Measured) 97.0, P-50 ( Temp Corrected) N, Carboxyhemoglobin 0.3 L, O2 Concentration % .35, Respiration Rate 16, O2 Delivery Method VENT, Vent Mode A/C, Expiratory Pressure 5, Tidal Volume 500, Phlebotomy Draw Site RIGHT RADIAL 12/03/17 0450: Anion Gap 6, Estimated GFR 55 L, Glucose 105 H, Calcium 7.7 L, Phosphorus 3.1 , Magnesium 1.7, Total Bilirubin 0.8, AST 15 L, ALT 24, Albumin 2.5 L, PT 38.6 H, INR 3.50 H, CBC w Diff NO MAN DIFF REQ, RBC 3.40 L, MCV 91.5, MCH 31.5 H, MCHC 34.4, RDW 13.5, MPV 7.2 L, Gran % 77.6 H, Lymphocytes % 8.9 L, Monocytes % 7.3, Eosinophils % 6.0 H, Basophils % 0.2, Absolute Granulocytes 5.3, Absolute Lymphocytes 0.6 L, Absolute Monocytes 0.5, Absolute Eosinophils 0.4, Absolute Basophils 0 12/02/17 1930: Anion Gap 8, Estimated GFR 51 L, Glucose 100 H, Calcium 7.8 L, Phosphorus 3.3 , Magnesium 1.8, Total Bilirubin 0.8, AST 14 L, ALT 22, Albumin 2.5 L Microbiology 12/04 0815 URINE ROUT: Urine Culture - RES Vital Signs Date Time Temp Pulse Resp B/P B/P Pulse O2 O2 Flow FiO2 Mean Ox Delivery Rate 12/05 0800 97.7 84 26 130/80 96 Nasal 2.0L Cannula 12/05 0400 92 Nasal 2.0L Cannula 12/05 0000 96 Nasal 2.0L Cannula 12/05 0000 99.5 78 26 137/75 96 Nasal 2.0L Cannula 12/04 2000 Nasal 3.0L Cannula 12/04 1928 80 146/90 12/04 1834 91 170/100 12/04 1600 97.9 82 22 152/98 97 Nasal 3.0L Cannula 12/04 1600 97 Nasal 3.0L Cannula 12/04 1200 95 Nasal 3.0L Cannula
--- NOTE | 2017-12-05 10:00 | PN- CRCU ---
Subjective HPI/Critical Care Issues: No extubated Doing well No further seizure More awake and alert Still has some pain in the right hip Objective Current Medications: Current Medications Sig/Miladis Start time Last Medication Dose Route Stop Time Status Admin Acetaminophen 1,000 MG Q6P PRN 11/29 914 12/04 N/A 1 UNIT IV 2211 Artificial Tears 2 GTT 4 TIMES/DAY 12/03 899 AC 12/05 OPH 0821 Atropine Sulfate 1 MG ONE PRN 12/02 1215 AC IV Ceftriaxone Sodium 1,000 MG 12/02 DC 12/03 IV 2015 Dextrose/Sodium 1,000 ML Q20H 12/04 1900 AC 12/04 Chloride IV 12/05 1459 1926 Erythromycin 1 EVERETT 4 TIMES/DAY 12/04 899 AC 12/05 OPH 0820 Lactulose 20 GM BID 12/03 2099 AC 12/04 PO 075 Levetiracetam 1,000 MG Q12 11/30 2099 AC 12/04 Sodium Chloride 100 ML IV 210 Levothyroxine Sodium 0.125 MG DAILY AC 12/02 1513 AC 12/04 PO 0625 Linaclotide 290 MCG DAILY 12/02 1515 AC 12/04 PO 0752 Lorazepam 1 MG Q6-PRN PRN 11/29 2200 AC 12/02 IV 1741 Magnesium Hydroxide 30 ML AT BEDTIME PRN 12/03 1815 AC PO Magnesium Sulfate 1 GM ONCE ONE 12/04 07 DC 12/04 Dextrose/Water 100 ML IV 12/04 1059 0753 Metoprolol Tartrate 0 .STK-MED ONE 12/04 1833 DC IV Metoprolol Tartrate 5 MG ONCE ONE 12/04 1815 DC 12/04 IV 12/04 1816 1834 Ondansetron HCl 4 MG Q6P PRN 12/04 1100 AC 12/04 IV 1057 Ondansetron HCl 0 .STK-MED ONE 12/04 1057 DC .ROUTE Pantoprazole Sodium 40 MG DAILY 12/04 09 AC 12/04 IV 0752 Senna 187 MG AT BEDTIME 12/02 2099 AC 12/03 PO 2103 Sodium Phosphate 1 UNIT ONCE ONE 12/04 1100 DC NV 12/04 1101 Valproate Sodium 750 MG Q12 11/30 2099 AC 12/05 Sodium Chloride 50 ML IV 0932 Vital Signs & I&O Last 24 Hrs of Vitals and I&O: Vital Signs Date Time Temp Pulse Resp B/P B/P Pulse O2 O2 Flow FiO2 Mean Ox Delivery Rate 12/06 799 97.7 84 26 130/80 96 Nasal 2.0L Cannula 12/05 0400 92 Nasal 2.0L Cannula 12/05 0000 96 Nasal 2.0L Cannula 12/05 0000 99.5 78 26 137/75 96 Nasal 2.0L Cannula 12/04 2000 Nasal 3.0L Cannula 12/04 1928 80 146/90 12/04 1834 91 170/100 12/04 1600 97.9 82 22 152/98 97 Nasal 3.0L Cannula 12/04 1600 97 Nasal 3.0L Cannula 12/04 1200 95 Nasal 3.0L Cannula Intake & Output 12/05 0812/05 0000 Intake Total 384 418.1 Output Total 900 670 Balance -516 -251.9 Intake, IV 384 418.1 Intake, Oral 0 Number 1 Bowel Movements Output, Urine 900 670 Laboratory Tests 12/05 12/04 0430 1500 Chemistry Sodium (137 - 145 mmol/L) 138 Potassium (3.5 - 5.1 mmol/L) 3.8 Chloride (98 - 107 mmol/L) 106 Carbon Dioxide (22 - 30 mmol/L) 27 Anion Gap (5 - 16) 4 L BUN (9 - 20 mg/dL) 13 Creatinine (0.7 - 1.2 mg/dL) 0.9 Estimated GFR (>60 ml/min) > 60 Glucose (65 - 99 mg/dL) 101 H Calcium (8.4 - 10.2 mg/dL) 8.0 L Phosphorus (2.5 - 4.5 mg/dL) 2.8 Magnesium (1.6 - 2.3 mg/dL) 1.8 Total Bilirubin (0.2 - 1.3 mg/dL) 0.9 AST (17 - 59 U/L) 31 ALT (21 - 72 U/L) 31 Albumin (3.5 - 5.0 g/dL) 2.4 L Coagulation PT (9.4 - 12.5 SEC) 24.4 H INR (0.90 - 1.17) 2.22 H Hematology CBC w Diff NO MAN DIFF REQ NO MAN DIFF REQ WBC (4.8 - 10.8 /CUMM) 5.5 5.8 RBC (4.70 - 6.10 /CUMM) 3.32 L 3.25 L Hgb (14.0 - 18.0 G/DL) 10.4 L 10.1 L Hct (42 - 52 %) 30.2 L 29.7 L MCV (80.0 - 94.0 FL) 91.2 91.5 MCH (27.0 - 31.0 PG) 31.4 H 31.1 H MCHC (33.0 - 37.0 G/DL) 34.5 34.1 RDW (11.5 - 14.5 %) 13.0 13.5 Plt Count (130 - 400 /CUMM) 116 L 119 L MPV (7.4 - 10.4 FL) 6.9 L 6.9 L Gran % (42.2 - 75.2 %) 73.9 77.2 H Lymphocytes % (20.5 - 51.1 %) 10.9 L 9.2 L Monocytes % (1.7 - 9.3 %) 8.3 7.4 Eosinophils % (0 - 5 %) 6.7 H 6.1 H Basophils % (0.0 - 2.0 %) 0.2 0.1 Absolute Granulocytes (1.4 - 6.5 /CUMM) 4.0 4.5 Absolute Lymphocytes (1.2 - 3.4 /CUMM) 0.6 L 0.5 L Absolute Monocytes (0.10 - 0.60 /CUMM) 0.5 0.4 Absolute Eosinophils (0.0 - 0.7 /CUMM) 0.4 0.4 Absolute Basophils (0.0 - 0.2 /CUMM) 0 0 12/04 12/04 0854 0605 Blood Gas pH (7.35 - 7.45 PH) 7.48 H 7.47 H pCO2 (35 - 45 TORR) 32 L 32 L pO2 (80 - 100 TORR) 76 L 95 HCO3 (21 - 28 MEQ/L) 23 22 ABG O2 Sat (Measured) (>96.0 %) 95.0 L 97.0 P-50 (Temp Corrected) N N Carboxyhemoglobin (1.5 - 5.0 %) 0.1 L 0.1 L O2 Concentration % 35% .35 Respiration Rate (BPM) 23 16 O2 Delivery Method VENT VENT Vent Mode CPAP/PSV TRIAL A/C Expiratory Pressure (CMH2O/P) 5 5 Tidal Volume (CC) 441 500 Pressure Support (CMH2O/P) 6 Miscellaneous Phlebotomy Draw Site RIGHT RADIAL RIGHT RADIAL 12/04 12/03 0420 1620 Chemistry Sodium (137 - 145 mmol/L) 137 138 Potassium (3.5 - 5.1 mmol/L) 3.9 3.7 Chloride (98 - 107 mmol/L) 107 111 H Carbon Dioxide (22 - 30 mmol/L) 24 22 Anion Gap (5 - 16) 5 4 L BUN (9 - 20 mg/dL) 15 14 Creatinine (0.7 - 1.2 mg/dL) 1.0 1.1 Estimated GFR (>60 ml/min) > 60 > 60 Glucose (65 - 99 mg/dL) 121 H 112 H Calcium (8.4 - 10.2 mg/dL) 8.0 L 7.3 L Phosphorus (2.5 - 4.5 mg/dL) 2.6 2.5 Magnesium (1.6 - 2.3 mg/dL) 1.7 1.6 Total Bilirubin (0.2 - 1.3 mg/dL) 0.9 0.8 AST (17 - 59 U/L) 26 16 L ALT (21 - 72 U/L) 17 L 22 Albumin (3.5 - 5.0 g/dL) 2.4 L 2.3 L Coagulation PT (9.4 - 12.5 SEC) 33.0 H INR (0.90 - 1.17) 2.99 H Hematology CBC w Diff NO MAN DIFF REQ WBC (4.8 - 10.8 /CUMM) 7.2 RBC (4.70 - 6.10 /CUMM) 2.78 L Hgb (14.0 - 18.0 G/DL) 8.6 L Hct (42 - 52 %) 25.1 L MCV (80.0 - 94.0 FL) 90.4 MCH (27.0 - 31.0 PG) 30.7 MCHC (33.0 - 37.0 G/DL) 34.0 RDW (11.5 - 14.5 %) 13.5 Plt Count (130 - 400 /CUMM) 131 MPV (7.4 - 10.4 FL) 6.7 L Gran % (42.2 - 75.2 %) 81.4 H Lymphocytes % (20.5 - 51.1 %) 6.7 L Monocytes % (1.7 - 9.3 %) 6.4 Eosinophils % (0 - 5 %) 5.4 H Basophils % (0.0 - 2.0 %) 0.1 Absolute Granulocytes (1.4 - 6.5 /CUMM) 5.8 Absolute Lymphocytes (1.2 - 3.4 /CUMM) 0.5 L Absolute Monocytes (0.10 - 0.60 /CUMM) 0.5 Absolute Eosinophils (0.0 - 0.7 /CUMM) 0.4 Absolute Basophils (0.0 - 0.2 /CUMM) 0 Microbiology Date/Time Procedure - Status Source Growth 12/04 814 Urine Culture - RES URINE ROUT Impression/Plan Impression/Plan Impression/Plan: Intubated more awake and reponding Conjuctival swelling left side neck supple tenderness ribs bilat Chest mild crackles Cvs s1s2 arielle Abd soft spastic left hemiperesis 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 exam Moves rt side aroused by pain on passive ROM R hip stays awake briefly, follows simple commands 67 year old male with PMH Sz, 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, DVT on Warfarin, HTN, HLD, PVD, BPH, Hypothyroid, GERD, Depression with seizue disorder With * Recurrent persistant seizures, initially did not respond to Keppra and loaded with valproic acid and sub intubated and was on propofol, extubated with no further seizures * One episode of FEver few days ago rule out asp pna, on abx * Previous stroke with hemiparesis * Worsening poor performance status * Sinus tachycardia before now with on and off Sinus pauses and cardio on board * Rt hip pain, rule out fracture * Thrombocytopenia improving * High INR was on warfarin, now resolving * Anemia with no overt signs of bleeding REC Cont iv seizure meds Cont ivf, swallow eval Watch INR Check cbc IF stable can dc gutierrez Ok to dc gutierrez, dc abx and if able oob to chair with joyce
--- NOTE | 2017-12-05 10:32 | PN- Infect Dx ---
Subjective Subjective: Afebrile. He was successfully extubated yesterday. One large liquid stool reported yesterday. No further seizure activity reported. He complains of chest discomfort. Objective Last 24 Hrs of Vital Signs/I&O Vital Signs Date Time Temp Pulse Resp B/P B/P Pulse O2 O2 Flow FiO2 Mean Ox Delivery Rate 12/05 08 97.7 84 26 130/80 96 Nasal 2.0L Cannula 12/05 0400 92 Nasal 2.0L Cannula 12/05 0000 96 Nasal 2.0L Cannula 12/05 0000 99.5 78 26 137/75 96 Nasal 2.0L Cannula 12/04 2000 Nasal 3.0L Cannula 12/04 1928 80 146/90 12/04 1834 91 170/100 12/04 1600 97.9 82 22 152/98 97 Nasal 3.0L Cannula 12/04 1600 97 Nasal 3.0L Cannula 12/04 1200 95 Nasal 3.0L Cannula Intake & Output 12/05 1600 12/05 0800 12/05 0000 Intake Total 384 418.1 Output Total 900 670 Balance -516 -251.9 Intake, IV 384 418.1 Intake, Oral 0 Number 1 Bowel Movements Output, Urine 900 670 Physical Exam Other Physical Findings: He is more awake and alert, able to respond to questions HEENT left subconjunctival hemorrhage Lungs clear Heart regular rhythm with a 1/6 systolic ejection murmur Abdomen is soft, nontender with positive bowel sounds Extremities chronic venous stasis changes both lower extremities Killian catheter remains in place Results Last 24 Hours of Lab Results: Laboratory Tests 12/05 12/04 0430 1500 Chemistry Sodium (137 - 145 mmol/L) 138 Potassium (3.5 - 5.1 mmol/L) 3.8 Chloride (98 - 107 mmol/L) 106 Carbon Dioxide (22 - 30 mmol/L) 27 Anion Gap (5 - 16) 4 L BUN (9 - 20 mg/dL) 13 Creatinine (0.7 - 1.2 mg/dL) 0.9 Estimated GFR (>60 ml/min) > 60 Glucose (65 - 99 mg/dL) 101 H Calcium (8.4 - 10.2 mg/dL) 8.0 L Phosphorus (2.5 - 4.5 mg/dL) 2.8 Magnesium (1.6 - 2.3 mg/dL) 1.8 Total Bilirubin (0.2 - 1.3 mg/dL) 0.9 AST (17 - 59 U/L) 31 ALT (21 - 72 U/L) 31 Albumin (3.5 - 5.0 g/dL) 2.4 L Coagulation PT (9.4 - 12.5 SEC) 24.4 H INR (0.90 - 1.17) 2.22 H Hematology CBC w Diff NO MAN DIFF REQ NO MAN DIFF REQ WBC (4.8 - 10.8 /CUMM) 5.5 5.8 RBC (4.70 - 6.10 /CUMM) 3.32 L 3.25 L Hgb (14.0 - 18.0 G/DL) 10.4 L 10.1 L Hct (42 - 52 %) 30.2 L 29.7 L MCV (80.0 - 94.0 FL) 91.2 91.5 MCH (27.0 - 31.0 PG) 31.4 H 31.1 H MCHC (33.0 - 37.0 G/DL) 34.5 34.1 RDW (11.5 - 14.5 %) 13.0 13.5 Plt Count (130 - 400 /CUMM) 116 L 119 L MPV (7.4 - 10.4 FL) 6.9 L 6.9 L Gran % (42.2 - 75.2 %) 73.9 77.2 H Lymphocytes % (20.5 - 51.1 %) 10.9 L 9.2 L Monocytes % (1.7 - 9.3 %) 8.3 7.4 Eosinophils % (0 - 5 %) 6.7 H 6.1 H Basophils % (0.0 - 2.0 %) 0.2 0.1 Absolute Granulocytes (1.4 - 6.5 /CUMM) 4.0 4.5 Absolute Lymphocytes (1.2 - 3.4 /CUMM) 0.6 L 0.5 L Absolute Monocytes (0.10 - 0.60 /CUMM) 0.5 0.4 Absolute Eosinophils (0.0 - 0.7 /CUMM) 0.4 0.4 Absolute Basophils (0.0 - 0.2 /CUMM) 0 0 Last 24 Hours of Santosh Results: Urine culture December 04 negative Assessment/Plan ID Impression: Stable, with temperatures and white blood cell count remaining normal, now off antibiotics after 5 days of treatment for possible aspiration pneumonia, though his chest x-rays have remained negative for pneumonia. Suggestion: 1. Remove Killian catheter 2. Continue to follow off antibiotics
--- NOTE | 2017-12-05 14:11 | Transfer of Care Summary ---
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 The patient presented to [facility] ED with complaint of tonic-clonic seizures and unresponsivenes. He was diagnosed with seizures in 2013 and has been compliant with his medication KEPPRA 500 twice a day. He does not remember if he took the medication on the day of admission. However he reports being compliant with his medication in general. She also denies any recent changes to his medications. His medication list was confirmed with [facility], last time he had a refill for all his meds including Keppra and warfarin was on 11/16/17 from [facility]. Admitted to ICU and the following is his management [place] seizures Patient was noncompliant with keppra prior to admission. He was loaded with keppra and added depakote as continued to have seizures, got intubated and received propofol infusion. As the initial EEG demonstrated temporal lobe activity, he was covered for HSV encephalitis with acyclovir, ceftriaxone, metrogly very briefly for 2 days. Unable to evlauate with LP as anticoagulated. He became bradyacardic due to which propofol was discontinued. Repeat EEG on 12/03/17 is negative for seizure activity after which he got extubated. He was continued on IV keppra 1gm BID, valproic acid 750mg BID which were transitioned today to oral keppra and depakote after swallow eval. Right hip femoral neck fracture Patient reported pain and difficulty with moving right hip. hip X ray did show neck deformity but unable to pursue CT as unstable to go at presentation. on 12/07/27 CT of hip did show laterally displaced femoral neck fracture 1.5cm, we will obtain ortho consult. Patient is wheel chair bound and never moved out of the bed so far, although may not be a very good candidate for surgery, weight bearing status and conservative management need to be sorted out. Aspiration pneumonia Afebrile on admission WBC was 14.1, bands 2, segmented neutrophils 87. spiked fevers on 2nd day of admission. LRC and blood culture were negative. Chest x-ray :Hypoexpanded lungs with bronchovascular crowding. No dense consolidation. completed 5 day course of ceftriaxone. Erythema of left eye Patient had signficant erythema of left eye conjunctiva, for few days while intubated. Artificial tear drops and prednisone drops improved. Possibly conjunctival. We will stop by 12/08/17 as it is almost back to baseline. History of DVT on Coumadin As per discussion with his sister, the patient has history of DVT which resulted in a stroke through what his sister think is patent foramen ovale. 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 Due to drug interaction his INR remained supratherapeutic for few days. Dose and check INR daily if no plans of surgery for femur. Indirect Hyperbilirubinemia/ most likely Gilbert syndrome On admission his bilirubin was 2.4, LFTs normal. Reviewing the patient's chart showed that he had similar episodes during previous admissions. Note from Dr. West back in 2013 suggested that the patient might have Gilbert disease. Currently the patient is n.p.o. which might have triggered this hyperbilirubinemia Constipation Patient had history of constipation and seems to be on multiple medications at home. He did not had a BM for 10 days after admission. We will continue his home regimen as started on diet. LALO - resolved Cr 1.3 at presentation, got worse with dehydration to 1.6. Improved with hydration. Now around 0.7. history of old right MCA territory infarct with residual left-sided weakness Chronic tremors on right hand Chronic medical conditions Restarted home medications - 12/07/17 after passing swallow eval. BPH - started on tamsulosin Hypothyroidism - started on levothyroxine constipation - started on senna, docusate Mental health - started on escitalopram, holding zolpidem (can restart as needed ) HTN - started on amlodipine 2.5mg daily and lisinopril 5mg daily. HLD - on simvastatin at home, started on atorvastatin in hospital. Mechanical vent: Intubated from 11/30/17 to 12/04/17 NIPPV: None Antibiotics: completed a course of ceftriaxone for aspiration pneumonia Catheters/Lines - gutierrez removed on 12/05/17, peripheral IV. Never had central line placed. Things to be followed 1. Confirm antiepileptic regimen - On keppra 1gm BID, Valproic acid 750mg bid now 2. Passed swallow eval today - placed on mechanical soft and thin liquid diet -- might need reeval 3. Ortho consulted for right femoral neck fracture -- please continue lovenox or heparin till decided on surgery. If not needed would restart his warfarin. 4. PT/OT 5. Might need placement or home monitoring for medication compliance 6. Neurology follow up as outpatient Nutrition Passed swallow eval today - started on regular diet --> mechanical soft and thin consistency DVT prophylaxis SC heparin now - needs lovenox or warfarin depending on surgical decision. Code status Full code Complications: none Significant Procedures: Head and cervical spine CT on 11/28/17 IMPRESSION: Head No acute intracranial abnormality. Chronic large right MCA infarction with additional smaller chronic infarction in the left lateral cerebellum. CT cervical spine: No cervical spine fracture or malalignment. Advanced multilevel degenerative spondylotic changes without high-grade spinal canal stenosis. CXR on 11/28/17 IMPRESSION: Poorly expanded lungs. No acute intrathoracic disease. Hip Xray 11/29/17 IMPRESSION: Deformity in the region of the neck of the right femur, seen only on the frontal projection. The lateral radiograph is technically limited. Follow-up noncontrast CT of the right hip may be considered for further clarification. CXR on 11/30/17 IMPRESSION: 1. Unchanged appearance of the chest with low lung volumes and left basilar subsegmental atelectasis again seen. 2. No evolving pneumonia. CXR on 12/04/17 IMPRESSION: Endotracheal tube tip 4.7 cm above the brennen. The enteric tube tip is not seen due to underpenetration of the film. The cardiomediastinal silhouette is stable and likely artifactually enlarged. Echo on 12/04/17 CONCLUSIONS Right sided shift of heart LV appears normal in size and function. LVEF estimated at 60%. Grade 1 diastolic dysfunction. RV appears normal in size and function. LA is normal in size. Interatrial septum is intact. Tricuspid aortic valve without sclerosis or stenosis. Trace tricuspid regurgitation. Normal pericardium without effusion. CT femoral region - 12/06/17 FINDINGS: There is a transverse fracture through the femoral neck with proximal migration and slight impaction, along with lateral displacement of approximately 1.5 cm. There is posterior angulation. Sclerosis along the fracture lines suggest this is subacute or chronic, with no osseous bridging. The femoral head is seated within the acetabular fossa with [id number] osteoarthritis. Mild edema extends proximally along the iliopsoas muscle, and there is diffuse subcutaneous edema extending distally along the thigh, and superficial to the adductor and vastus lateralis muscles. IMPRESSION: Slightly displaced femoral neck fracture which appears to be subacute or chronic with no osseous bridging. Pertinent Lab Results: as above Assessment/Plan: as above Attending MD Review Statement Documenting Attending: Terri REEVES,Jonny Vogel
--- NOTE | 2017-12-05 14:49 | ECHOCARDIOGRAM REPORT ---
NUBIA ELDRIDGE Age: 67 : 1950 Gender: M Exam Date: 12/04/2017 15:34 Exam Location: [facility] Ht (in): 73 Wt (lb): 232 BSA: 2.35 BP: 138 / 80 Ordering Physician: Yamilex Mendes MD Referring Physician: Blas Roman MD Technologist: Carolee Pavon [facility] Room Number: 112 Indications: Structural heart disease Rhythm: Sinus Technical Quality: very difficult FINDINGS Left Ventricle Dextrocardia. LV appears normal in size and function. LVEF estimated at 60%. Grade 1 diastolic dysfunction. Right Ventricle RV appears normal in size and function. Right Atrium Left Atrium LA is normal in size. Interatrial septum is intact. Mitral Valve normal in structure and function. There is no MR. Aortic Valve Tricuspid aortic valve without sclerosis or stenosis. There is no aortic regurgitation. Tricuspid Valve Trace tricuspid regurgitation. Pulmonic Valve There is no pulmonic insufficiency. Pericardium normal pericardium without effusion. Great Vessels not well visualized. CONCLUSIONS Dextrocardia. LV appears normal in size and function. LVEF estimated at 60%. Grade 1 diastolic dysfunction. RV appears normal in size and function. LA is normal in size. Interatrial septum is intact. Tricuspid aortic valve without sclerosis or stenosis. Trace tricuspid regurgitation. Normal pericardium without effusion. Magan Roman M.D. (Electronically Signed) Final Date: 05 December 2017 14:48 MEASUREMENTS (Male / Female) Normal Values 2D ECHO LV Diastolic Diameter PLAX 4.1 cm 4.2 - 5.9 / 3.9 - 5.3 cm LV Systolic Diameter PLAX 2.7 cm 2.1 - 4.0 cm LV Fractional Shortening PLAX 34.1 % 25 - 46 % LV Ejection Fraction 2D Teich 63.6 % IVS Diastolic Thickness 0.9 cm LVPW Diastolic Thickness 0.8 cm LV Relative Wall Thickness 0.4 RV Internal Dim ED PLAX 1.9 cm 1.9 - 3.8 cm LVOT Diameter 1.8 cm Aortic Root Diameter 3.0 cm LA Systolic Diameter LX 3.0 cm 3.0 - 4.0 / 2.7 - 3.8 cm DOPPLER AV Peak Velocity 119.0 cm/s AV Peak Gradient 5.7 mmHg AV Mean Velocity 92.4 cm/s AV Mean Gradient 4.0 mmHg AV Velocity Time Integral 22.9 cm LVOT Peak Velocity 86.5 cm/s LVOT Peak Gradient 3.0 mmHg LVOT Mean Velocity 61.7 cm/s LVOT Mean Gradient 2.0 mmHg LVOT Velocity Time Integral 17.0 cm LVOT Stroke Volume 43.3 cm AV Area Cont Eq vti 1.9 cm AV Area Cont Eq pk 1.8 cm MV Peak Velocity 99.2 cm/s MV Peak Gradient 3.9 mmHg MV Mean Velocity 60.2 cm/s MV Mean Gradient 2.0 mmHg Mitral E Point Velocity 58.2 cm/s Mitral A Point Velocity 93.3 cm/s Mitral E to A Ratio 0.6 MV PHT Velocity 72.7 cm/s MV Deceleration [place] 336.0 cm/s MV Pressure Half Time 64.9 ms MV Area PHT 3.4 cm MV Deceleration Time 238.0 ms TR Peak Velocity 90.2 cm/s TR Peak Gradient 3.3 mmHg Right Atrial Pressure 5.0 mmHg Pulmonary Artery Systolic Pressure 8.3 mmHg Right Ventricular Systolic Pressure 8.3 mmHg LV E' Lateral Velocity 9.6 cm/s Mitral E to LV E' Lateral Ratio 6.1 LV E' Septal Velocity 4.8 cm/s Mitral E to LV E' Septal Ratio 12.2
[2017-12-05 16:00] VITALS: BP 160/100
[2017-12-05 23:00] VITALS: BP 154/100
[2017-12-06 04:14] LABS: ABSOLUTE BASOPHIL COUNT 0 /CUMM (0.0-0.2); ABSOLUTE EOSINOPHIL COUNT 0.3 /CUMM (0.0-0.7); ABSOLUTE GRANULOCYTE CT 5.1 /CUMM (1.4-6.5); ABSOLUTE LYMPH COUNT 0.6 /CUMM (1.2-3.4); ABSOLUTE MONOCYTE COUNT 0.5 /CUMM (0.10-0.60); BASOPHIL % 0.2 % (0.0-2.0); EOSINOPHIL % 5.1 % (0-5); GRANULOCYTE % 76.9 % (42.2-75.2); HEMATOCRIT 31.1 % (42-52); MEAN CORPUSCULAR HGB 31.4 PG (27.0-31.0); MEAN CORPUSCULAR HGB CONC 34.3 G/DL (33.0-37.0); MEAN CORPUSCULAR VOLUME 91.5 FL (80.0-94.0); PLATELET COUNT 122 /CUMM (130-400); RBC DISTRIBUTION WIDTH 13.1 % (11.5-14.5); WHITE BLOOD CELL COUNT 6.6 /CUMM (4.8-10.8)
[2017-12-06 04:26] LABS: PT 23.6 SEC (9.4-12.5)
--- NOTE | 2017-12-06 06:33 | PN- Resident CRCU ---
Subjective HPI/CRCU Issues: Breakthrough seizures - under control 24 Hour Events: hemodynamically stable. No overnight events. Responds and able to communicate Objective Vital Signs & I&O Last 8 Hrs of Vitals and I&O: Vital Signs Date Time Temp Pulse Resp B/P B/P Pulse O2 O2 Flow FiO2 Mean Ox Delivery Rate 12/06 0400 98 Nasal 2.0L Cannula 12/06 0000 96 Nasal 2.0L Cannula 12/05 2300 98.5 82 25 154/100 96 Nasal 2.0L Cannula 12/05 2000 96 Nasal 2.0L Cannula 12/05 1600 98.4 88 18 160/100 96 Nasal 2.0L Cannula 12/05 1600 96 Nasal 2.0L Cannula 12/05 1200 96 Nasal 2.0L Cannula Intake & Output 12/06 1600 12/06 0800 12/06 0000 Intake Total 468 517 Output Total Balance 468 517 Intake, IV 468 517 Intake, Oral 0 0 Exam General Appearance: well developed/nourished, no apparent distress, alert, awake , comfortable Head: atraumatic, normal appearance Ears, Nose, Throat: normal pharynx, normal ENT inspection Neck: normal inspection, supple Respiratory: normal breath sounds, chest non-tender, no respiratory distress, quiet respiration, mild crackles present Cardiovascular: regular rate/rhythm, JVD, normal peripheral pulses Gastrointestinal: normal bowel sounds, non-tender, no organomegaly Extremities: normal inspection, normal capillary refill, normal range of motion IV Drips IV Drips: D51/2NS Nutrition Nutrition: NPO Current Medications: Current Medications Sig/Miladis Start time Last Medication Dose Route Stop Time Status Admin Acetaminophen 1,000 MG Q6P PRN 11/29 0815 12/04 N/A 1 UNIT IV 2211 Artificial Tears 2 GTT 4 TIMES/DAY 12/03 899 12/06 OPH 1208 Atropine Sulfate 1 MG ONE PRN 12/02 1215 IV Dextrose/Sodium 1,000 ML Q20H 12/05 1730 DC 12/05 Chloride IV 12/06 1329 1816 Erythromycin 1 EVERETT 4 TIMES/DAY 12/04 09 12/06 OPH 1209 Hydralazine HCl 5 MG ONCE ONE 12/05 1730 DC IV 12/05 1731 Lactulose 20 GM BID 12/03 2100 12/04 PO 0752 Levetiracetam 1,000 MG Q12 11/30 2100 AC 12/06 Sodium Chloride 100 ML IV 0838 Levothyroxine Sodium 62.5 MCG DAILY 12/06 0900 AC 12/06 IV 1208 Levothyroxine Sodium 62.5 MCG DAILY AC 12/05 1142 DC 12/05 IV 1347 Linaclotide 290 MCG DAILY 12/02 1515 AC 12/04 PO 0752 Lorazepam 1 MG Q6-PRN PRN 11/29 2200 AC 12/02 IV 1741 Magnesium Hydroxide 30 ML AT BEDTIME PRN 12/03 1815 AC PO Magnesium Sulfate 1 GM ONCE ONE 12/06 0845 DC 12/06 Dextrose/Water 100 ML IV 12/06 1244 1120 Magnesium Sulfate 1 GM ONCE ONE 12/06 0515 DC 12/06 Dextrose/Water 100 ML IV 12/06 0614 0536 Magnesium Sulfate 1 GM ONCE ONE 12/06 0500 CAN Dextrose/Water 100 ML IV 12/06 0859 Ondansetron HCl 4 MG Q6P PRN 12/04 1100 AC 12/04 IV 1057 Pantoprazole Sodium 40 MG DAILY 12/04 0900 AC 12/06 IV 0838 Prednisolone 2 GTT 4 TIMES/DAY 12/05 1830 AC 12/06 OPH 1400 Senna 187 MG AT BEDTIME 12/02 2100 AC 12/03 PO 2103 Valproate Sodium 750 MG Q12 11/30 2100 AC 12/06 Sodium Chloride 50 ML IV 0933 Impression/Plan Impression/Problem List Impression: 67-year-old male with PMH of Seizure(on Keppra 500 BID) 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 The patient presented to [facility] ED with complaint of tonic- clonic seizures and unresponsivenes. He was diagnosed with seizures in 2013 and has been compliant with his medication KEPPRA 500 twice a day. He does not remember if he took the medication on the day of admission. However he reports being compliant with his medication in general. She also denies any recent changes to his medications. His medication list was confirmed with [facility], last time he had a refill for all his meds including Keppra and warfarin was on 11/16/17 from [facility]. Possibly related to non-compliance, need to rule out acute stroke. Assessment: Continue to monitor in ICU for the following condition: Respiratory Extubated on 12/04/17. Stable on RA. Possible aspiration pneumonia Afebrile on admission WBC was 14.1, bands 2, segmented neutrophils 87. LRC and blood culture were negative. Chest x-ray :Hypoexpanded lungs with bronchovascular crowding. No dense consolidation. completed 5 day course of ceftriaxone. Cardiology Transient complete heart block in the setting of first-degree heart block: No more pauses. stable so far. Right sided mediastinal shift Patient had elevated left hemidiaphragm which pushed his heart to right side. Hematology stable H&H 02/19 History of DVT on Coumadin - supratherapeutic INR As per discussion with his sister, the patient has history of DVT which resulted in a stroke through what his sister think is patent foramen ovale. 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 Possibly secondary to medications. * Monitor INR daily Thrombocytopenia Platlete count dropped to the 90's - improving - today 122. MSK Right hip pain: Most likely due to muscle spasm * IV Tylenol as needed for pain * Xray suspicious of neck deformity. * CT today Metabolic LALO: resolved. alimentary Indirect Hyperbilirubinemia/ most likely Gilbert syndrome On admission his bilirubin was 2.4, LFTs normal. Reviewing the patient's chart showed that he had similar episodes during previous admissions. Note from Dr. West back in 2013 suggested that the patient might have Gilbert disease. NPO for now, swallow eval pending today. we will continue fluids now. Constipation Patient had history of constipation and he remained on multiple medications at home. Had a BM yesterday. Guiac negative. Neurology Recurrent seizure : Initially loaded with Keppra, as continued to have seizures started on valproic acid as well. Due to continued seizures despite and 2 antiepileptics he was intubated and started on IV propofol drip. He received IV acyclovir, metronidazole, ceftriaxone for few days due to concern of HSV encephalitis on his EEG, however after starting on IV propofol they resolved, so discontinued abx. Off propofol and extubated on 12/04/17. Failed swallow eval. * Continue Keppra 1000 mg twice daily * Continue valproic acid 750 mg twice daily * Keep n.p.o. pending swallow eval. history of old right MCA territory infarct with residual left-sided weakness Chronic tremors on right hand For updates you can call his sister Nancy [phone] Full code DVT prophylaxis ALPS - elevated INR Problem List: 1. Seizure disorder 2. Constipation 3. History of stroke 4. DVT prophylaxis 5. Full code status Pain Ratin Pain Location: right hip Tomorrow's Labs & Rationales: cbc icu bundle INR Plan DVT/Prophylaxis: mechanical
[2017-12-06 08:00] VITALS: BP 150/100
--- NOTE | 2017-12-06 09:49 | PN- CRCU ---
Subjective HPI/Critical Care Issues: Still sleepy No significant seizures Hemodynamically stable Has pain in the right hip Objective Current Medications: Current Medications Sig/Miladis Start time Last Medication Dose Route Stop Time Status Admin Acetaminophen 1,000 MG Q6P PRN 11/29 0915 12/04 N/A 1 UNIT IV 2211 Artificial Tears 2 GTT 4 TIMES/DAY 12/03 0900 AC 12/05 OPH 2016 Atropine Sulfate 1 MG ONE PRN 12/02 1215 AC IV Dextrose/Sodium 1,000 ML Q20H 12/05 1730 AC 12/05 Chloride IV 12/06 1329 1816 Dextrose/Sodium 1,000 ML Q20H 12/04 1900 DC 12/04 Chloride IV 12/05 1459 1926 Erythromycin 1 EVERETT 4 TIMES/DAY 12/04 09 12/05 OPH 2015 Hydralazine HCl 5 MG ONCE ONE 12/05 1730 DC IV 12/05 1731 Lactulose 20 GM BID 12/03 2100 AC 12/04 PO 0752 Levetiracetam 1,000 MG Q12 11/30 2100 AC 12/06 Sodium Chloride 100 ML IV 0838 Levothyroxine Sodium 62.5 MCG DAILY 12/06 09 AC IV Levothyroxine Sodium 62.5 MCG DAILY AC 12/05 1142 DC 12/05 IV 1347 Levothyroxine Sodium 0.125 MG DAILY AC 12/02 1513 DC 12/04 PO 0625 Linaclotide 290 MCG DAILY 12/02 1515 AC 12/04 PO 0752 Lorazepam 1 MG Q6-PRN PRN 11/29 2200 AC 12/02 IV 1741 Magnesium Hydroxide 30 ML AT BEDTIME PRN 12/03 1815 AC PO Magnesium Sulfate 1 GM ONCE ONE 12/06 0845 AC Dextrose/Water 100 ML IV 12/06 1244 Magnesium Sulfate 1 GM ONCE ONE 12/06 0515 DC 12/06 Dextrose/Water 100 ML IV 12/06 0614 0536 Magnesium Sulfate 1 GM ONCE ONE 12/06 0500 CAN Dextrose/Water 100 ML IV 12/06 0859 Ondansetron HCl 4 MG Q6P PRN 12/04 1100 AC 12/04 IV 1057 Pantoprazole Sodium 40 MG DAILY 12/04 0900 AC 12/06 IV 0838 Prednisolone 2 GTT 4 TIMES/DAY 12/05 1830 AC 12/05 OPH 2015 Senna 187 MG AT BEDTIME 12/02 2099 AC 12/03 PO 210 Valproate Sodium 750 MG Q12 11/30 2099 AC 12/06 Sodium Chloride 50 ML IV 0933 Vital Signs & I&O Last 24 Hrs of Vitals and I&O: Vital Signs Date Time Temp Pulse Resp B/P B/P Pulse O2 O2 Flow FiO2 Mean Ox Delivery Rate 12/06 0400 98 Nasal 2.0L Cannula 12/06 0000 96 Nasal 2.0L Cannula 12/05 2300 98.5 82 25 154/100 96 Nasal 2.0L Cannula 12/05 2000 96 Nasal 2.0L Cannula 12/05 1600 98.4 88 18 160/100 96 Nasal 2.0L Cannula 12/05 1600 96 Nasal 2.0L Cannula 12/05 1200 96 Nasal 2.0L Cannula Intake & Output 12/06 1600 12/06 0800 12/06 0000 Intake Total 468 517 Output Total Balance 468 517 Intake, IV 468 517 Intake, Oral 0 0 Impression/Plan Impression/Plan Impression/Plan: Conjuctival swelling left side neck supple tenderness ribs bilat Chest mild crackles Cvs s1s2 arielle Abd soft spastic left hemiperesis 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 Moves rt side 67 year old male with PMH Sz, 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, DVT on Warfarin, HTN, HLD, PVD, BPH, Hypothyroid, GERD, Depression with seizue disorder With * Recurrent persistant seizures, initially did not respond to Keppra and loaded with valproic acid and sub intubated and was on propofol-subsequently extubated with no further seizures * One episode of Fever few days ago no better no evidence of meningitis patient has finished 5 days of antibiotics * Previous stroke with hemiparesis * Worsening poor performance status * Sinus tachycardia before now with on and off Sinus pauses and cardio on board * Rt hip pain, rule out fracture * Thrombocytopenia improving * High INR was on warfarin, now resolving * Anemia with no overt signs of bleeding * Chronic elevated left hemidiaphragm with lower mediastinal shift to the right REC Cont iv seizure meds Cont ivf, swallow eval Watch INR, hold warfarin Check cbc daily Ct of hip rt side
--- NOTE | 2017-12-06 10:54 | PN- Infect Dx ---
Subjective Subjective: Afebrile. He complains of rib pain. Objective Last 24 Hrs of Vital Signs/I&O Vital Signs Date Time Temp Pulse Resp B/P B/P Pulse O2 O2 Flow FiO2 Mean Ox Delivery Rate 12/06 0400 98 Nasal 2.0L Cannula 12/06 0000 96 Nasal 2.0L Cannula 12/05 2300 98.5 82 25 154/100 96 Nasal 2.0L Cannula 12/05 2000 96 Nasal 2.0L Cannula 12/05 1600 98.4 88 18 160/100 96 Nasal 2.0L Cannula 12/05 1600 96 Nasal 2.0L Cannula 12/05 1200 96 Nasal 2.0L Cannula Intake & Output 12/06 1600 12/06 0800 12/06 0000 Intake Total 468 517 Output Total Balance 468 517 Intake, IV 468 517 Intake, Oral 0 0 Physical Exam Other Physical Findings: He is lethargic but responsive and verbal, in no acute distress Lungs are clear anteriorly Heart regular rhythm with no murmur Extremities chronic venous stasis changes both lower extremities Results Last 24 Hours of Lab Results: Laboratory Tests 12/06 0308 Chemistry Sodium (137 - 145 mmol/L) 140 Potassium (3.5 - 5.1 mmol/L) 3.8 Chloride (98 - 107 mmol/L) 105 Carbon Dioxide (22 - 30 mmol/L) 30 Anion Gap (5 - 16) 5 BUN (9 - 20 mg/dL) 12 Creatinine (0.7 - 1.2 mg/dL) 0.8 Estimated GFR (>60 ml/min) > 60 Glucose (65 - 99 mg/dL) 97 Calcium (8.4 - 10.2 mg/dL) 8.2 L Phosphorus (2.5 - 4.5 mg/dL) 2.6 Magnesium (1.6 - 2.3 mg/dL) 1.7 Total Bilirubin (0.2 - 1.3 mg/dL) 0.7 AST (17 - 59 U/L) 35 ALT (21 - 72 U/L) 36 Albumin (3.5 - 5.0 g/dL) 2.4 L Coagulation PT (9.4 - 12.5 SEC) 23.6 H INR (0.90 - 1.17) 2.15 H Hematology CBC w Diff NO MAN DIFF REQ WBC (4.8 - 10.8 /CUMM) 6.6 RBC (4.70 - 6.10 /CUMM) 3.40 L Hgb (14.0 - 18.0 G/DL) 10.7 L Hct (42 - 52 %) 31.1 L MCV (80.0 - 94.0 FL) 91.5 MCH (27.0 - 31.0 PG) 31.4 H MCHC (33.0 - 37.0 G/DL) 34.3 RDW (11.5 - 14.5 %) 13.1 Plt Count (130 - 400 /CUMM) 122 L MPV (7.4 - 10.4 FL) 7.0 L Gran % (42.2 - 75.2 %) 76.9 H Lymphocytes % (20.5 - 51.1 %) 9.7 L Monocytes % (1.7 - 9.3 %) 8.1 Eosinophils % (0 - 5 %) 5.1 H Basophils % (0.0 - 2.0 %) 0.2 Absolute Granulocytes (1.4 - 6.5 /CUMM) 5.1 Absolute Lymphocytes (1.2 - 3.4 /CUMM) 0.6 L Absolute Monocytes (0.10 - 0.60 /CUMM) 0.5 Absolute Eosinophils (0.0 - 0.7 /CUMM) 0.3 Absolute Basophils (0.0 - 0.2 /CUMM) 0 Last 24 Hours of [facility] Results: Urine culture December 04 negative Assessment/Plan ID Impression: Stable, with temperatures and white blood cell count remaining normal, off antibiotics after 5 days of treatment for possible aspiration pneumonia. Suggestion: 1. Continue to follow off antibiotics Will no longer follow at this time but please call with any questions
--- NOTE | 2017-12-06 11:04 | PN- Att Addend ---
Attending Addendum Attending Brief Note Patient looking better and brighter, no seizures in the last 24 hours. Vital signs are stable no fever. No new changes in physical examination. Patient seems stable check with Dr. Murray hopefully will be able to transfer out of the intensive care unit Intake & Output 12/06 1600 12/06 0400 12/05 1600 12/05 0400 12/04 1600 12/04 0400 Intake Total 468 517 944 418.1 1428 1644 Output Total 3978 374 2802 450 Balance 468 517 -406 -251.9 278 1194 Intake, IV 468 517 944 418.1 372 440 Intake, Oral 0 0 0 0 Intake, Tube 296 204 Feeding Intake, Tube 760 1000 Irrigant Number 0 1 1 Bowel Movements Output, Urine 6681 753 1456 450 Patient 233 lb Weight Current Medications Sig/Miladis Start time Last Medication Dose Route Stop Time Status Admin Acetaminophen 1,000 MG Q6P PRN 11/29 914 12/04 N/A 1 UNIT IV 2211 Artificial Tears 2 GTT 4 TIMES/DAY 12/03 09 12/06 OPH 0954 Atropine Sulfate 1 MG ONE PRN 12/02 1215 AC IV Dextrose/Sodium 1,000 ML Q20H 12/05 1730 AC 12/05 Chloride IV 12/06 1329 1816 Dextrose/Sodium 1,000 ML Q20H 12/04 1900 DC 12/04 Chloride IV 12/05 1459 1926 Erythromycin 1 EVERETT 4 TIMES/DAY 12/04 09 12/06 OPH 0951 Hydralazine HCl 5 MG ONCE ONE 12/05 1730 DC IV 12/05 1731 Lactulose 20 GM BID 12/03 2100 AC 12/04 PO 0752 Levetiracetam 1,000 MG Q12 11/30 2100 12/06 Sodium Chloride 100 ML IV 0838 Levothyroxine Sodium 62.5 MCG DAILY 12/06 09 AC IV Levothyroxine Sodium 62.5 MCG DAILY AC 12/05 1142 DC 12/05 IV 1347 Levothyroxine Sodium 0.125 MG DAILY AC 12/02 1513 DC 12/04 PO 0625 Linaclotide 290 MCG DAILY 12/02 1515 AC 12/04 PO 0752 Lorazepam 1 MG Q6-PRN PRN 11/29 2200 AC 12/02 IV 1741 Magnesium Hydroxide 30 ML AT BEDTIME PRN 12/03 1815 AC PO Magnesium Sulfate 1 GM ONCE ONE 12/06 0845 AC Dextrose/Water 100 ML IV 12/06 1244 Magnesium Sulfate 1 GM ONCE ONE 12/06 0515 DC 12/06 Dextrose/Water 100 ML IV 12/06 0614 0536 Magnesium Sulfate 1 GM ONCE ONE 12/06 0500 CAN Dextrose/Water 100 ML IV 12/06 0859 Ondansetron HCl 4 MG Q6P PRN 12/04 1100 AC 12/04 IV 1057 Pantoprazole Sodium 40 MG DAILY 12/04 0900 AC 12/06 IV 0838 Prednisolone 2 GTT 4 TIMES/DAY 12/05 1830 AC 12/05 OPH 2015 Senna 187 MG AT BEDTIME 12/02 2100 AC 12/03 PO 2103 Valproate Sodium 750 MG Q12 11/30 2099 AC 12/06 Sodium Chloride 50 ML IV 0933 Laboratory Tests 12/06/17 0308: Anion Gap 5, Estimated GFR > 60, Glucose 97, Calcium 8.2 L, Phosphorus 2.6, Magnesium 1.7, Total Bilirubin 0.7, AST 35, ALT 36, Albumin 2.4 L, PT 23.6 H, INR 2.15 H, CBC w Diff NO MAN DIFF REQ, RBC 3.40 L, MCV 91.5, MCH 31.4 H, MCHC 34.3, RDW 13.1, MPV 7.0 L, Gran % 76.9 H, Lymphocytes % 9.7 L, Monocytes % 8.1, Eosinophils % 5.1 H, Basophils % 0.2, Absolute Granulocytes 5.1, Absolute Lymphocytes 0.6 L, Absolute Monocytes 0.5, Absolute Eosinophils 0.3, Absolute Basophils 0 12/05/17 0430: Anion Gap 4 L, Estimated GFR > 60, Glucose 101 H, Calcium 8.0 L, Phosphorus 2.8, Magnesium 1.8, Total Bilirubin 0.9, AST 31, ALT 31, Albumin 2.4 L, PT 24.4 H, INR 2.22 H, CBC w Diff NO MAN DIFF REQ, RBC 3.32 L, MCV 91.2, MCH 31.4 H, MCHC 34.5, RDW 13.0, MPV 6.9 L, Gran % 73.9, Lymphocytes % 10.9 L, Monocytes % 8.3, Eosinophils % 6.7 H, Basophils % 0.2, Absolute Granulocytes 4.0, Absolute Lymphocytes 0.6 L, Absolute Monocytes 0.5, Absolute Eosinophils 0.4, Absolute Basophils 0 12/04/17 1500: CBC w Diff NO MAN DIFF REQ, RBC 3.25 L, MCV 91.5, MCH 31.1 H, MCHC 34.1, RDW 13.5, MPV 6.9 L, Gran % 77.2 H, Lymphocytes % 9.2 L, Monocytes % 7.4, Eosinophils % 6.1 H, Basophils % 0.1, Absolute Granulocytes 4.5, Absolute Lymphocytes 0.5 L, Absolute Monocytes 0.4, Absolute Eosinophils 0.4, Absolute Basophils 0 12/04/17 0854: pH 7.48 H, pCO2 32 L, pO2 76 L, HCO3 23, ABG O2 Sat (Measured) 95.0 L, P-50 (Temp Corrected) N, Carboxyhemoglobin 0.1 L, O2 Concentration % 35%, Respiration Rate 23, O2 Delivery Method VENT, Vent Mode CPAP/PSV TRIAL, Expiratory Pressure 5, Tidal Volume 441, Pressure Support 6, Phlebotomy Draw Site RIGHT RADIAL 12/04/17 0605: pH 7.47 H, pCO2 32 L, pO2 95, HCO3 22, ABG O2 Sat (Measured) 97.0, P-50 (Temp Corrected) N, Carboxyhemoglobin 0.1 L, O2 Concentration % .35, Respiration Rate 16, O2 Delivery Method VENT, Vent Mode A/C, Expiratory Pressure 5, Tidal Volume 500, Phlebotomy Draw Site RIGHT RADIAL 12/04/17 0420: Anion Gap 5, Estimated GFR > 60, Glucose 121 H, Calcium 8.0 L, Phosphorus 2.6, Magnesium 1.7, Total Bilirubin 0.9, AST 26, ALT 17 L, Albumin 2.4 L, PT 33.0 H, INR 2.99 H, CBC w Diff NO MAN DIFF REQ, RBC 2.78 L, MCV 90.4, MCH 30.7, MCHC 34.0, RDW 13.5, MPV 6.7 L, Gran % 81.4 H, Lymphocytes % 6.7 L, Monocytes % 6.4, Eosinophils % 5.4 H, Basophils % 0.1, Absolute Granulocytes 5.8, Absolute Lymphocytes 0.5 L, Absolute Monocytes 0.5, Absolute Eosinophils 0.4, Absolute Basophils 0 12/03/17 1620: Anion Gap 4 L, Estimated GFR > 60, Glucose 112 H, Calcium 7.3 L, Phosphorus 2.5, Magnesium 1.6, Total Bilirubin 0.8, AST 16 L, ALT 22, Albumin 2.3 L Microbiology 12/04 814 URINE ROUT: Urine Culture - COMP Microbiology 12/04 814 URINE ROUT: Urine Culture - COMP Vital Signs Date Time Temp Pulse Resp B/P B/P Pulse O2 O2 Flow FiO2 Mean Ox Delivery Rate 12/06 0400 98 Nasal 2.0L Cannula 12/06 0000 96 Nasal 2.0L Cannula 12/05 2300 98.5 82 25 154/100 96 Nasal 2.0L Cannula 12/05 2000 96 Nasal 2.0L Cannula 12/05 1600 98.4 88 18 160/100 96 Nasal 2.0L Cannula 12/05 1600 96 Nasal 2.0L Cannula 12/05 1200 96 Nasal 2.0L Cannula
[2017-12-06 16:00] VITALS: BP 128/74
--- NOTE | 2017-12-06 16:45 | CT SCAN REPORT ---
EXAMINATION: CT LOWER EXTREMITY WITHOUT CONTRAST, RIGHT CLINICAL INFORMATION: Abnormal x-ray. Possible femoral neck fracture. COMPARISON: Radiographs 11/29/2017. TECHNIQUE: A noncontrast CT of the right femur is performed with sagittal and coronal reformats. DLP: 1520 mGy-cm. FINDINGS: There is a transverse fracture through the femoral neck with proximal migration and slight impaction, along with lateral displacement of approximately 1.5 cm. There is posterior angulation. Sclerosis along the fracture lines suggest this is subacute or chronic, with no osseous bridging. The femoral head is seated within the acetabular fossa with [id number] osteoarthritis. Mild edema extends proximally along the iliopsoas muscle, and there is diffuse subcutaneous edema extending distally along the thigh, and superficial to the adductor and vastus lateralis muscles. IMPRESSION: Slightly displaced femoral neck fracture which appears to be subacute or chronic with no osseous bridging.
[2017-12-06 23:00] VITALS: BP 140/70
[2017-12-07 03:45] LABS: ABSOLUTE BASOPHIL COUNT 0 /CUMM (0.0-0.2); ABSOLUTE EOSINOPHIL COUNT 0.3 /CUMM (0.0-0.7); ABSOLUTE GRANULOCYTE CT 4.5 /CUMM (1.4-6.5); ABSOLUTE LYMPH COUNT 0.8 /CUMM (1.2-3.4); ABSOLUTE MONOCYTE COUNT 0.3 /CUMM (0.10-0.60); BASOPHIL % 0.1 % (0.0-2.0); EOSINOPHIL % 4.9 % (0-5); GRANULOCYTE % 75.5 % (42.2-75.2); HEMATOCRIT 32.5 % (42-52); MEAN CORPUSCULAR HGB 31.5 PG (27.0-31.0); MEAN CORPUSCULAR HGB CONC 34.9 G/DL (33.0-37.0); MEAN CORPUSCULAR VOLUME 90.3 FL (80.0-94.0); MEAN PLATELET VOLUME 6.7 FL (7.4-10.4); PLATELET COUNT 154 /CUMM (130-400); RBC DISTRIBUTION WIDTH 12.9 % (11.5-14.5); WHITE BLOOD CELL COUNT 5.9 /CUMM (4.8-10.8)
[2017-12-07 03:50] LABS: PT 20.8 SEC (9.4-12.5)
--- NOTE | 2017-12-07 06:52 | PN- Housestaff ---
Subjective Follow-up For: Breakthrough seizures - under control DVT on warfarin Displaced right femoral neck fracture Constipation Subjective: I have seen and examined the patient. He appears improving everyday, more communicative. Reports he is very tired and painful everywhere. Unable to move his lower extremities. Review of Systems Constitutional: Reports: see HPI. Objective Last 24 Hrs of Vital Signs/I&O Vital Signs Date Time Temp Pulse Resp B/P B/P Pulse O2 O2 Flow FiO2 Mean Ox Delivery Rate 12/07 0000 98 Nasal 2.0L Cannula 12/06 2300 98.0 85 22 140/70 98 Nasal 2.0L Cannula 12/06 1600 97.3 73 20 128/74 94 Nasal 2.0L Cannula 12/06 1600 94 Nasal 2.0L Cannula 12/06 1315 Nasal 2.0L Cannula 12/06 08 98.2 79 26 150/100 95 Nasal 2.0L Cannula 12/06 0800 95 Nasal 2.0L Cannula Intake & Output 12/07 0800 12/07 0000 12/06 1600 Intake Total 400 655 650 Output Total Balance 400 655 650 Intake, IV 400 655 650 Intake, Oral 0 0 Physical Exam General Appearance: Alert, Oriented X3, Cooperative Skin: No Rashes, No Breakdown Skin Temp/Moisture Exam: Warm/Dry Sepsis Skin Exam (color): Normal for Ethnicity HEENT: Atraumatic, PERRLA, no more erythema of left eye Neck: Supple, No JVD Cardiovascular: Regular Rate, Normal S1, Normal S2, No Murmurs Lungs: Normal Air Movement, normal breath sounds Abdomen: Normal Bowel Sounds, Soft, No Tenderness Neurological: spastic left hand, tremors on right hand Unable to pull against gravity - both lower extremities. Extremities: No Clubbing, No Cyanosis, No Edema Current Medications: Current Medications Sig/Miladis Start time Last Medication Dose Route Stop Time Status Admin Acetaminophen 1,000 MG Q8P PRN 12/06 2345 AC IV Acetaminophen 1,000 MG Q6P PRN 11/29 0915 DC 12/04 N/A 1 UNIT IV 2211 Artificial Tears 2 GTT 4 TIMES/DAY 12/03 09 AC 12/06 OPH 2119 Atropine Sulfate 1 MG ONE PRN 12/02 1215 AC IV Dextrose 25 GM ONCE ONE 12/06 190 DC 12/06 IV 12/06 190 1854 Dextrose 0 .STK-MED ONE 12/06 1856 DC IV Dextrose/Sodium 1,000 ML Q20H 12/06 1715 AC 12/06 Chloride IV 12/07 1314 1738 Dextrose/Sodium 1,000 ML Q20H 12/05 1730 DC 12/05 Chloride IV 12/06 1329 1816 Erythromycin 1 EVERETT 4 TIMES/DAY 12/04 0900 12/06 OPH 2119 Heparin Sodium 5,000 UNIT Q8 12/07 0808 (Porcine) SC Lactulose 20 GM BID 12/03 2100 AC 12/04 PO 0752 Levetiracetam 1,000 MG Q12 11/30 2100 AC 12/06 Sodium Chloride 100 ML IV 211 Levothyroxine Sodium 62.5 MCG DAILY 12/06 0900 AC 12/06 IV 1208 Linaclotide 290 MCG DAILY 12/02 1515 12/04 PO 0752 Lorazepam 1 MG Q6-PRN PRN 11/29 2200 AC 12/02 IV 1741 Magnesium Hydroxide 30 ML AT BEDTIME PRN 12/03 1815 PO Magnesium Sulfate 1 GM ONCE ONE 12/06 0845 IA 12/06 Dextrose/Water 100 ML IV 12/06 1244 1120 Ondansetron HCl 4 MG Q6P PRN 12/04 1100 AC 12/04 IV 1057 Pantoprazole Sodium 40 MG DAILY 12/04 0900 12/06 IV 0838 Prednisolone 2 GTT 4 TIMES/DAY 12/05 1830 IA 12/06 OPH 2119 Senna 187 MG AT BEDTIME 12/02 2100 AC 12/03 PO 2103 Valproate Sodium 750 MG Q12 11/30 2100 12/06 Sodium Chloride 50 ML IV 211 Warfarin Sodium 2 MG COUMADIN 1700 12/07 1700 AC PO 12/07 2359 Last 24 Hrs of Lab/Santosh Results Last 24 Hrs of Labs/Mics: Laboratory Tests 12/07/17 0326: Anion Gap 3 L, Estimated GFR > 60, Glucose 103 H, Calcium 8.1 L, Phosphorus 2.6, Magnesium 1.8, Total Bilirubin 1.0, AST 31, ALT 35, Albumin 2.7 L, PT 20.8 H, INR 1.90 H, CBC w Diff NO MAN DIFF REQ, RBC 3.60 L, MCV 90.3, MCH 31.5 H, MCHC 34.9, RDW 12.9, MPV 6.7 L, Gran % 75.5 H, Lymphocytes % 13.9 L, Monocytes % 5.6, Eosinophils % 4.9, Basophils % 0.1, Absolute Granulocytes 4.5, Absolute Lymphocytes 0.8 L, Absolute Monocytes 0.3, Absolute Eosinophils 0.3, Absolute Basophils 0 12/06/17 1000: Sodium Cancelled, Potassium Cancelled, Chloride Cancelled, Carbon Dioxide Cancelled, Anion Gap Cancelled, BUN Cancelled, Creatinine Cancelled, Glucose Cancelled, Calcium Cancelled, Phosphorus Cancelled, Magnesium Cancelled, Total Bilirubin Cancelled, AST Cancelled, ALT Cancelled, Albumin Cancelled Assessment/Plan Assessment: Patient is a 67-year-old male with PMH of Seizure(on Keppra 500 BID) 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 The patient presented to [facility] ED with complaint of tonic-clonic seizures and unresponsivenes. He was diagnosed with seizures in 2013 and has been compliant with his medication KEPPRA 500 twice a day. He does not remember if he took the medication on the day of admission. However he reports being compliant with his medication in general. She also denies any recent changes to his medications. His medication list was confirmed with [facility], last time he had a refill for all his meds including Keppra and warfarin was on 11/16/17 from [facility]. Admitted to ICU and the following is his management Breakthorough seizures Patient was noncompliant with keppra prior to admission. He was loaded with keppra and added depakote as continued to have seizures, got intubated and received propofol infusion. As the initial EEG demonstrated temporal lobe activity, he was covered for HSV encephalitis with acyclovir, ceftriaxone, metrogly very briefly for 2 days. Unable to evlauate with LP as anticoagulated. He became bradyacardic due to which propofol was discontinued. Repeat EEG on 12/03/17 is negative for seizure activity after which he got extubated. He was continued on IV keppra 1gm BID, valproic acid 750mg BID. No more seizure activity so far after extubation. started on oral medications from tomorrow. Right hip pain Pain reported pain and difficulty with moving right hip. hip X ray did show neck deformity but unable to pursue CT due as unstable to go at presentation. CT of hip did show laterally displaced femoral neck fracture 1.5cm , we will obtain ortho consult. Patient is wheel chair bound and never moved out of the bed so far, although may not be a very good candidate for surgery, weight bearing status and conservative management need to be sorted out. History of hypothyroidism Currently on IV levo, will transition once started on diet. History of HTN As needed IV pushes are given, we will start his home regimen once started on diet. Possible aspiration pneumonia Afebrile on admission WBC was 14.1, bands 2, segmented neutrophils 87. spiked fevers on 2nd day of admission. LRC and blood culture were negative. Chest x-ray :Hypoexpanded lungs with bronchovascular crowding. No dense consolidation. completed 5 day course of ceftriaxone. History of DVT on Coumadin As per discussion with his sister, the patient has history of DVT which resulted in a stroke through what his sister think is patent foramen ovale. 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 Due to drug interaction his INR remained supratherapeutic for few days. Dose and check INR daily. INR today is 1.9 - dosed warfarin 2mg today. Indirect Hyperbilirubinemia/ most likely Gilbert syndrome On admission his bilirubin was 2.4, LFTs normal. Reviewing the patient's chart showed that he had similar episodes during previous admissions. Note from Dr. West back in 2013 suggested that the patient might have Gilbert disease. Currently the patient is n.p.o. which might have triggered this hyperbilirubinemia Constipation Patient had history of constipation and he remained on multiple medications at home. Had a BM yesterday. Guiac negative. He did not had a BM for 10 days after admission. We will continue his home regimen once started on diet. NPO now pending swallow eval. history of old right MCA territory infarct with residual left-sided weakness Chronic tremors on right hand Nutrition Passed swallow eval and started on mechanical ground and thin liquids. DVT prophylaxis SC lovenox today Code status Full code Problem List: 1. Seizure disorder 2. Constipation 3. History of stroke 4. Gait instability 5. Weakness 6. Hip fracture 7. Hypothyroidism Pain Ratin Pain Location: everywhere Pain Goal: Pain 4 or less Pain Plan: tylenol Tomorrow's Labs & Rationales: cbc icu bundle
[2017-12-07 08:00] VITALS: BP 130/90
--- NOTE | 2017-12-07 10:32 | PN- CRCU ---
Subjective HPI/Critical Care Issues: He appears improving everyday, more communicative. Reports he is very tired and painful everywhere. Unable to move his lower extremities. Review of Systems Constitutional: Reports: see HPI. Objective Current Medications: Current Medications Sig/Miladis Start time Last Medication Dose Route Stop Time Status Admin Acetaminophen 1,000 MG Q8P PRN 12/06 2345 AC 12/07 IV 0859 Acetaminophen 1,000 MG Q6P PRN 11/29 0915 TN 12/04 N/A 1 UNIT IV 2211 Artificial Tears 2 GTT 4 TIMES/DAY 12/03 0900 12/07 OPH 0918 Atropine Sulfate 1 MG ONE PRN 12/02 1215 AC IV Dextrose 25 GM ONCE ONE 12/06 1900 DC 12/06 IV 12/06 1901 1854 Dextrose 0 .STK-MED ONE 12/06 1856 DC IV Dextrose/Sodium 1,000 ML Q20H 12/06 1715 AC 12/06 Chloride IV 12/07 1314 1738 Dextrose/Sodium 1,000 ML Q20H 12/05 1730 DC 12/05 Chloride IV 12/06 1329 1816 Erythromycin 1 EVERETT 4 TIMES/DAY 12/04 0900 12/07 OPH 0917 Heparin Sodium 0 .STK-MED ONE 12/07 0855 DC (Porcine) .ROUTE Heparin Sodium 5,000 UNIT Q8 12/07 0808 12/07 (Porcine) SC 0859 Lactulose 20 GM BID 12/03 2100 AC 12/04 PO 0752 Levetiracetam 1,000 MG Q12 11/30 2100 12/06 Sodium Chloride 100 ML IV 2118 Levothyroxine Sodium 62.5 MCG DAILY 12/06 0900 12/07 IV 0917 Linaclotide 290 MCG DAILY 12/02 1515 AC 12/04 PO 0752 Lorazepam 1 MG Q6-PRN PRN 11/29 2200 AC 12/02 IV 1741 Magnesium Hydroxide 30 ML AT BEDTIME PRN 12/03 1815 AC PO Magnesium Sulfate 1 GM ONCE ONE 12/06 0845 TN 12/06 Dextrose/Water 100 ML IV 12/06 1244 1120 Ondansetron HCl 4 MG Q6P PRN 12/04 1100 AC 12/04 IV 1057 Pantoprazole Sodium 40 MG DAILY 12/04 0900 AC 12/07 IV 0859 Prednisolone 2 GTT 4 TIMES/DAY 12/05 1830 DC 12/06 OPH 2119 Senna 187 MG AT BEDTIME 12/02 2099 AC 12/03 PO 210 Valproate Sodium 750 MG Q12 11/30 2099 AC 12/07 Sodium Chloride 50 ML IV 09 Warfarin Sodium 2 MG COUMADIN 1700 12/07 1700 AC PO 12/07 2359 Vital Signs & I&O Last 24 Hrs of Vitals and I&O: Vital Signs Date Time Temp Pulse Resp B/P B/P Pulse O2 O2 Flow FiO2 Mean Ox Delivery Rate 12/07 08 97.3 76 20 130/90 98 Nasal 2.0L Cannula 12/07 0000 98 Nasal 2.0L Cannula 12/06 2300 98.0 85 22 140/70 98 Nasal 2.0L Cannula 12/06 1600 97.3 73 20 128/74 94 Nasal 2.0L Cannula 12/06 1600 94 Nasal 2.0L Cannula 12/06 1315 Nasal 2.0L Cannula Intake & Output 12/07 1600 12/07 0800 12/07 0000 Intake Total 400 655 Output Total Balance 400 655 Intake, IV 400 655 Intake, Oral 0 0 Impression/Plan Impression/Plan Impression/Plan: Conjuctival swelling left side neck supple tenderness ribs bilat Chest mild crackles Cvs s1s2 arielle Abd soft spastic left hemiperesis 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 67 year old male with PMH Sz, 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, DVT on Warfarin, HTN, HLD, PVD, BPH, Hypothyroid, GERD, Depression with seizue disorder With * Resolved Recurrent persistant seizures (initially did not respond to Keppra and loaded with valproic acid and sub intubated and was on propofol-subsequently extubated with no further seizures) * One episode of Fever few days ago no better no evidence of meningitis patient has finished 5 days of antibiotics * Previous stroke with hemiparesis * Worsening poor performance status * Sinus tachycardia before now with on and off Sinus pauses and cardio on board * Rt hip pain, CT sugg of fracture needs ortho eval * Thrombocytopenia improving * High INR was on warfarin, now resolving * Anemia with no overt signs of bleeding * 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
--- NOTE | 2017-12-07 10:41 | PN- Att Addend ---
Attending Addendum Attending Brief Note Patient in bed. No seizures. Alert. Complaining of pain in both lower extremities. Vital signs are stable no fever. Lungs decreased breath sounds. No other major changes. Patient x-rays and CAT scan of the leg that showed a slightly displaced femoral neck fracture possibly subacute or chronic, will ask orthopedic to see the patient and depending on the recommendations will start heparin or Lovenox before surgery if that is what they are planning. Intake & Output 12/07 1600 12/07 0400 12/06 1600 12/06 0400 12/05 1600 12/05 0400 Intake Total 657 640 0523 517 944 418.1 Output Total 1350 670 Balance 832 837 2708 517 -406 -251.9 Intake, IV 587 475 2203 517 944 418.1 Intake, Oral 0 0 0 0 0 Number 0 1 Bowel Movements Output, Urine 1350 670 Current Medications Sig/Miladis Start time Last Medication Dose Route Stop Time Status Admin Acetaminophen 1,000 MG Q8P PRN 12/06 2345 AC 12/07 IV 0859 Acetaminophen 1,000 MG Q6P PRN 11/29 0915 DC 12/04 N/A 1 UNIT IV 2211 Artificial Tears 2 GTT 4 TIMES/DAY 12/03 09 12/07 OPH 0918 Atropine Sulfate 1 MG ONE PRN 12/02 1215 AC IV Dextrose 25 GM ONCE ONE 12/06 1900 DC 12/06 IV 12/06 1901 1854 Dextrose 0 .STK-MED ONE 12/06 1856 DC IV Dextrose/Sodium 1,000 ML Q20H 12/06 1715 AC 12/06 Chloride IV 12/07 1314 1738 Dextrose/Sodium 1,000 ML Q20H 12/05 1730 DC 12/05 Chloride IV 12/06 1329 1816 Erythromycin 1 EVERETT 4 TIMES/DAY 12/04 09 12/07 OPH 0917 Heparin Sodium 0 .STK-MED ONE 12/07 0855 DC (Porcine) .ROUTE Heparin Sodium 5,000 UNIT Q8 12/07 0808 12/07 (Porcine) SC 0859 Lactulose 20 GM BID 12/03 2100 AC 12/04 PO 0752 Levetiracetam 1,000 MG Q12 11/30 2100 AC 12/07 Sodium Chloride 100 ML IV 1039 Levothyroxine Sodium 62.5 MCG DAILY 12/06 09 12/07 IV 0917 Linaclotide 290 MCG DAILY 12/02 1515 AC 12/04 PO 0752 Lorazepam 1 MG Q6-PRN PRN 11/29 2200 AC 12/02 IV 1741 Magnesium Hydroxide 30 ML AT BEDTIME PRN 12/03 1815 AC PO Magnesium Sulfate 1 GM ONCE ONE 12/06 0845 DC 12/06 Dextrose/Water 100 ML IV 12/06 1244 1120 Ondansetron HCl 4 MG Q6P PRN 12/04 1100 AC 12/04 IV 1057 Pantoprazole Sodium 40 MG DAILY 12/04 0900 AC 12/07 IV 0859 Prednisolone 2 GTT 4 TIMES/DAY 12/05 1830 DC 12/06 OPH 2119 Senna 187 MG AT BEDTIME 12/02 2100 AC 12/03 PO 210 Valproate Sodium 750 MG Q12 11/30 2100 AC 12/07 Sodium Chloride 50 ML IV 09 Warfarin Sodium 2 MG COUMADIN 1700 12/07 1700 AC PO 12/07 2359 Laboratory Tests 12/07/17 0326: Anion Gap 3 L, Estimated GFR > 60, Glucose 103 H, Calcium 8.1 L, Phosphorus 2.6, Magnesium 1.8, Total Bilirubin 1.0, AST 31, ALT 35, Albumin 2.7 L, PT 20.8 H, INR 1.90 H, CBC w Diff NO MAN DIFF REQ, RBC 3.60 L, MCV 90.3, MCH 31.5 H, MCHC 34.9, RDW 12.9, MPV 6.7 L, Gran % 75.5 H, Lymphocytes % 13.9 L, Monocytes % 5.6, Eosinophils % 4.9, Basophils % 0.1, Absolute Granulocytes 4.5, Absolute Lymphocytes 0.8 L, Absolute Monocytes 0.3, Absolute Eosinophils 0.3, Absolute Basophils 0 12/06/17 1000: Sodium Cancelled, Potassium Cancelled, Chloride Cancelled, Carbon Dioxide Cancelled, Anion Gap Cancelled, BUN Cancelled, Creatinine Cancelled, Glucose Cancelled, Calcium Cancelled, Phosphorus Cancelled, Magnesium Cancelled, Total Bilirubin Cancelled, AST Cancelled, ALT Cancelled, Albumin Cancelled 12/06/17 0308: Anion Gap 5, Estimated GFR > 60, Glucose 97, Calcium 8.2 L, Phosphorus 2.6, Magnesium 1.7, Total Bilirubin 0.7, AST 35, ALT 36, Albumin 2.4 L, PT 23.6 H, INR 2.15 H, CBC w Diff NO MAN DIFF REQ, RBC 3.40 L, MCV 91.5, MCH 31.4 H, MCHC 34.3, RDW 13.1, MPV 7.0 L, Gran % 76.9 H, Lymphocytes % 9.7 L, Monocytes % 8.1, Eosinophils % 5.1 H, Basophils % 0.2, Absolute Granulocytes 5.1, Absolute Lymphocytes 0.6 L, Absolute Monocytes 0.5, Absolute Eosinophils 0.3, Absolute Basophils 0 12/05/17 0430: Anion Gap 4 L, Estimated GFR > 60, Glucose 101 H, Calcium 8.0 L, Phosphorus 2.8, Magnesium 1.8, Total Bilirubin 0.9, AST 31, ALT 31, Albumin 2.4 L, PT 24.4 H, INR 2.22 H, CBC w Diff NO MAN DIFF REQ, RBC 3.32 L, MCV 91.2, MCH 31.4 H, MCHC 34.5, RDW 13.0, MPV 6.9 L, Gran % 73.9, Lymphocytes % 10.9 L, Monocytes % 8.3, Eosinophils % 6.7 H, Basophils % 0.2, Absolute Granulocytes 4.0, Absolute Lymphocytes 0.6 L, Absolute Monocytes 0.5, Absolute Eosinophils 0.4, Absolute Basophils 0 12/04/17 1500: CBC w Diff NO MAN DIFF REQ, RBC 3.25 L, MCV 91.5, MCH 31.1 H, MCHC 34.1, RDW 13.5, MPV 6.9 L, Gran % 77.2 H, Lymphocytes % 9.2 L, Monocytes % 7.4, Eosinophils % 6.1 H, Basophils % 0.1, Absolute Granulocytes 4.5, Absolute Lymphocytes 0.5 L, Absolute Monocytes 0.4, Absolute Eosinophils 0.4, Absolute Basophils 0 Vital Signs Date Time Temp Pulse Resp B/P B/P Pulse O2 O2 Flow FiO2 Mean Ox Delivery Rate 12/07 0800 97.3 76 20 130/90 98 Nasal 2.0L Cannula 12/07 0000 98 Nasal 2.0L Cannula 12/06 2300 98.0 85 22 140/70 98 Nasal 2.0L Cannula 12/06 1600 97.3 73 20 128/74 94 Nasal 2.0L Cannula 12/06 1600 94 Nasal 2.0L Cannula 12/06 1315 Nasal 2.0L Cannula
--- NOTE | 2017-12-07 14:13 | History & Physical ---
General Information and HPI Source of Information: old records Exam Limitations: unable to give history, clinical condition Allergies/Medications Allergies: Coded Allergies: Iodinated Contrast- Oral and IV Dye (UNKNOWN PER PT 08/05/17) Penicillins (UNKNOWN PER PT 08/05/17) bacitracin (PER PT EYE OINTMENT -DOES NOT REMEMBER REACTION 05/05/17) Home Med list Acetaminophen (Tylenol Extra Strength) 500 MG TABLET 1 TAB PO BID PRN Knee pain/fracture Amlodipine (Norvasc) 2.5 MG TABLET 1 TAB PO DAILY HEART (Reported) Aspirin (Ecotrin*) 81 MG TABLET.DR 1 TAB PO DAILY Heart Escitalopram Oxalate (Lexapro) 20 MG TABLET 1 TAB PO DAILY DEPRESSION ( Reported) Famotidine 20 MG TABLET 1 TAB PO DAILY GI (Reported) Lactulose (Generlac) 10 GRAM/15 ML SOLUTION 10 GM PO D PRN CONSTIPATION ( Reported) Levothyroxine Sodium 125 MCG TABLET 1 TAB PO DAILY AC THYROID (Reported) Linaclotide (Linzess) 290 MCG CAPSULE 1 CAP PO DAILY BOWEL (Reported) Lisinopril (Prinivil) 5 MG TABLET 1 TAB PO DAILY BP (Reported) Melatonin 3 MG TABLET 1 TAB PO QPM SUPPLEMENT (Reported) Multiple Vitamin (Multivitamins) 1 EACH TABLET 1 TAB PO DAILY SUPPLEMENT ( Reported) Plecanatide (Trulance) 3 MG TABLET 1 TAB PO DAILY BOWEL REGIMEN (Reported) Sennosides (Senna) 8.6 MG TABLET 2 TAB PO BID GI (Reported) Simvastatin (Zocor*) 20 MG TABLET 1 TAB PO QPM CHOLESTEROL (Reported) Tamsulosin HCl (Flomax) 0.4 MG CAP.ER.24H 2 CAP PO DAILY PROSTATE (Reported) Warfarin Sodium (Coumadin) 7.5 MG TABLET 1 TAB PO 1700 BLOOD THINNER/DVTS ( Reported) Zolpidem Tartrate 5 MG TABLET 1 TAB PO QPM SLEEP (Reported) Past History Travel History Traveled to [place] past 21 day No Medical History Neurological: CVA (right with left hemiparesis), seizure EENT: NONE Cardiovascular: hypertension, hyperlipidemia, PVD, VSD Respiratory: NONE Gastrointestinal: NONE Hepatic: NONE Renal: NONE Musculoskeletal: NONE Psychiatric: NONE Endocrine: hypothyroidism Blood Disorders: DVT Cancer(s): NONE 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 . MOTHER (DM, Breast Ca, Stroke). . Psychosocial History Where do you live? Home Who Do You Live With? self Services at Home: Home Health Aide, Nursing Smoking Status: Never Smoked Functional Ability Ambulation: walker Exam & Diagnostic Data Diagnostic Data EKG Results Sinus rhythm with nonspecific ST-Tchanges CXR Results Hypoexpanded lungs with bronchovascular crowding. No dense consolidation. Other Results CT head: No acute intracranial abnormality. Chronic large right MCA infarction with additional smaller chronic infarction in the left lateral cerebellum. CT cervical spine: No cervical spine fracture or malalignment. Advanced multilevel degenerative spondylotic changes without high-grade spinal canal stenosis. Core Measures/Misc (01/07) Cerebrovascular Accident CVA/TIA Diagnosis: Yes VTE (View Protocol) VTE Risk Factors Age>40 Sepsis (View protocol) Sepsis Present: No If YES complete Sepsis Event Note If YES complete Sepsis Event Note
[2017-12-07 14:46] VITALS: BP 130/80
--- NOTE | 2017-12-07 16:25 | RADIOLOGY REPORT ---
EXAMINATION: XR MODIFIED BARIUM SWALLOW CLINICAL INFORMATION: Failed bedside evaluation. Technique. Status post extubation. COMPARISON: None. TECHNIQUE: A modified barium swallow was performed with speech pathologist in attendance. Pur?e, honey thick, nectar thick, thin, bread, and cracker consistencies were given to the patient and the swallowing mechanism was observed fluoroscopically with several spot films taken using the last image hold feature. FLUOROSCOPY TIME: 1 minute 11 seconds. FINDINGS: With all consistencies, the oropharyngeal phase of swallowing is normal with no laryngeal or nasopharyngeal aspiration seen. No significant pooling of contrast is noted in the valleculae or piriform sinuses. IMPRESSION: Unremarkable examination. Speech pathologist assessment issued separately.
[2017-12-07 22:28] VITALS: BP 132/70
--- NOTE | 2017-12-08 05:37 | PN- Housestaff ---
Subjective Follow-up For: Breakthrough seizures DVT on warfarin Displaced right femoral neck fracture Constipation Subjective: Reports feeling better with no new concerns. Unable to move his lower extremities. Vitals remained stable overnight. No chest pain, shortness of breath, no palpiations. No abdominal pain, nausea or vomiting. Review of Systems Constitutional: Reports: see HPI. Objective Last 24 Hrs of Vital Signs/I&O Vital Signs Date Time Temp Pulse Resp B/P B/P Pulse O2 O2 Flow FiO2 Mean Ox Delivery Rate 12/08 0000 Nasal 2.0L Cannula 12/07 2228 98.3 83 19 132/70 98 Nasal Cannula 12/07 1600 Nasal 2.0L Cannula 12/07 1446 9.7 73 18 130/80 91 Nasal Cannula 12/07 0800 98 Nasal 2.0L Cannula 12/07 08 97.3 76 20 130/90 98 Nasal 2.0L Cannula Intake & Output 12/08 0800 12/08 0000 12/07 1600 Intake Total 650 Output Total Balance 650 Intake, IV 650 Number 1 Bowel Movements Patient 226 lb Weight Physical Exam General Appearance: Alert Other Physical Findings: General Appearance: Alert, Oriented X3, Cooperative Skin: No Rashes, No Breakdown Skin Temp/Moisture Exam: Warm/Dry Sepsis Skin Exam (color): Normal for Ethnicity HEENT: Atraumatic, PERRLA, no more erythema of left eye Neck: Supple, No JVD Cardiovascular: Regular Rate, Normal S1, Normal S2, No Murmurs Lungs: Normal Air Movement, normal breath sounds Abdomen: Normal Bowel Sounds, Soft, No Tenderness Neurological: spastic left hand, strength 3/5 LUE, 4/5 RLE, tremors on right hand, 2/5 b/l lower extremities. Extremities: No Clubbing, No Cyanosis, No Edema Current Medications: Current Medications Sig/Miladis Start time Last Medication Dose Route Stop Time Status Admin Acetaminophen 0 .STK-MED ONE 12/07 2325 DC IV Acetaminophen 500 MG BID PRN 12/07 1415 AC 12/07 PO 2329 Acetaminophen 1,000 MG Q8P PRN 12/06 2345 DC 12/07 IV 0859 Acetaminophen 1,000 MG Q6P PRN 11/29 0915 DC 12/04 N/A 1 UNIT IV 221 Amlodipine Besylate 2.5 MG DAILY 12/08 899 AC PO Artificial Tears 2 GTT 4 TIMES/DAY 12/03 0900 AC 12/07 OPH 2039 Aspirin Buffered 81 MG DAILY 12/08 0900 AC PO Atorvastatin Calcium 10 MG 1700 12/07 1700 AC 12/07 PO 1626 Atropine Sulfate 1 MG ONE PRN 12/02 1215 DC IV Dextrose/Sodium 1,000 ML Q20H 12/06 1715 DC 12/06 Chloride IV 12/07 1314 1738 Divalproex Sodium 750 MG BID 12/08 0900 AC PO Docusate Sodium 100 MG BID 12/07 2100 AC PO Enoxaparin Sodium 160 MG ONCE ONE 12/07 1445 DC 12/07 SC 12/07 1446 1627 Erythromycin 1 EVERETT 4 TIMES/DAY 12/04 0900 AC 12/07 OPH 2040 Escitalopram Oxalate 20 MG DAILY 12/08 09 AC PO Famotidine 20 MG DAILY 12/08 0900 AC PO Heparin Sodium 0 .STK-MED ONE 12/07 0855 DC (Porcine) .ROUTE Heparin Sodium 5,000 UNIT Q8 12/07 0808 AC 12/07 (Porcine) SC 2157 Lactulose 20 GM BID 12/03 2100 AC 12/07 PO 2039 Levetiracetam 1,000 MG BID 12/08 0900 AC PO Levetiracetam 1,000 MG Q12 11/30 2100 DC 12/07 Sodium Chloride 100 ML IV 12/08 0100 2031 Levothyroxine Sodium 0.125 MG DAILY AC 12/08 0700 AC PO Levothyroxine Sodium 62.5 MCG DAILY 12/06 0900 DC 12/07 IV 12/07 2200 0917 Linaclotide 290 MCG DAILY 12/02 1515 AC 12/04 PO 0752 Lisinopril 5 MG DAILY 12/08 0900 AC PO Lorazepam 1 MG Q6-PRN PRN 11/29 2200 DC 12/02 IV 1741 Magnesium Hydroxide 30 ML AT BEDTIME PRN 12/03 1815 AC PO Melatonin 3 MG QPM 12/07 2100 AC 12/07 PO 2040 Ondansetron HCl 4 MG Q6P PRN 12/04 1100 AC 12/04 IV 1057 Pantoprazole Sodium 40 MG DAILY 12/04 0900 DC 12/07 IV 0859 Prednisolone 2 GTT 4 TIMES/DAY 12/07 1700 AC 12/07 OPH 12/08 2200 2041 Prednisolone 2 GTT 4 TIMES/DAY 12/05 1830 DC 12/06 OPH 2119 Senna 187 MG AT BEDTIME 12/02 2099 AC 12/03 PO 2103 Senna/Docusate Sodium 1 TAB BID 12/07 2100 AC PO Tamsulosin HCl 0.8 MG DAILY 12/08 0900 AC PO Valproate Sodium 750 MG Q12 11/30 2099 DC 12/07 Sodium Chloride 50 ML IV 12/08 0300 2157 Warfarin Sodium 2 MG COUMADIN 1700 12/07 1700 CAN PO 12/07 2359 Assessment/Plan Assessment: Mr Pagan is a 67-year-old gentleman w/ a PMHx of seizure(on Keppra), 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 As per the EMR, he was diagnosed with seizures in 2013 and has been compliant with his medications, with good medication compliance. Given his continued breakthrough seizures, he was admitted to the ICU for airway protection. Pertinent lab findings in the last 24 hours: 12/07/17- WBC 5.9, hemoglobin 11.4, platelet count 154 (improving) Sodium 136, potassium 3.7, anion gap 3, albumin 2.7 INR 1.90 Labs from 12/08 were not drawn. Imaging in the last 24 hours: Modified barium swallow: With all consistencies, the oropharyngeal phase of swallowing is normal with no laryngeal or nasopharyngeal aspiration seen. No significant pooling of contrast is noted in the valleculae or piriform sinuses. Below is the problem list and plan: Seizures : Etiology of seizures was thought to be due to noncompliance. He was given keppra and added depakote as continued to have seizures. He was intubated for airway protection, and was started on propofol. 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 LP could not be done successfully, due to technical issues. Repeat EEG on 12/03/17 revealed no evidence of seizure activity. He was eventually extubated without any competitions. He was continued on IV keppra 1gm BID, valproic acid 750mg BID. - Continue keprra - Monitor for seizures. Right hip pain: Pain reported pain and difficulty with moving right hip. hip X ray did show neck deformity but unable to pursue CT due as unstable to go at presentation. CT of hip did show laterally displaced femoral neck fracture 1.5cm. Patient is wheel chair bound and never moved out of the bed so far, although may not be a very good candidate for surgery. -Continue conservative management at this time. -Follow orthopedic surgery recs. History of hypothyroidism: Continue po levothyroxine. History of HTN: BP is adequately controlled; continue home regimen. Monitor closely. Possible aspiration pneumonia: He was treated w/ a five day course of ceftriaxone. LRC and blood cultures remained negative. History of DVT on Coumadin: As per discussion with the family, the patient has history of DVT which resulted in a stroke through what his sister think is patent foramen ovale. 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 Due to drug interaction his INR remained supratherapeutic for few days. Dose and check INR daily. - Check INR and dose coumadin. Indirect Hyperbilirubinemia/ most likely Gilbert syndrome: On admission his bilirubin was 2.4, LFTs normal. Reviewing the patient's chart showed that he had similar episodes during previous admissions. Note from Dr. West back in 2013 suggested that the patient might have Gilbert disease. LFTs stable at this time. - Monitor for any changes. - No need for daily LFTs. History of old right MCA territory infarct with residual left-sided weakness chronic tremors on right hand. DVT prophylaxis: SC lovenox today Passed swallow eval and started on mechanical ground and thin liquids. Problem List: 1. Altered mental state 2. Seizure disorder 3. Chest pain 4. Constipation 5. History of stroke Pain Ratin Pain Location: back Pain Goal: Pain 4 or less Pain Plan: tylenol Tomorrow's Labs & Rationales: - CBC - BEP - INR
[2017-12-08 06:08] VITALS: BP 138/88
--- NOTE | 2017-12-08 08:53 | Cons- Orthopedic ---
General Information and HPI Consulting Request Date of Consult: 12/08/17 Requested By: Terri REEVES,Jonny Vogel Reason for Consult: Right subcapital hip fracture Source of Information: old records Exam Limitations: confusion History of Present Illness: Patient is a 67-year-old male admitted to the medical service after grand mal seizures. He was unresponsive sent to the intensive care unit intubated he is subsequently been extubated at this point he is still very lethargic still confused very weak is very immobile. He is currently on anticoagulants and has a right subcapital hip fracture. This would require a bigger operation with blood loss and transfusions. I will discuss with the medical team and his family which avenue they like to pursue. Due to the fact that he is on recent anticoagulants they would have to be stopped for a couple of days prior to his surgery. Allergies/Medications Allergies: Coded Allergies: Iodinated Contrast- Oral and IV Dye (UNKNOWN PER PT 08/05/17) Penicillins (UNKNOWN PER PT 08/05/17) bacitracin (PER PT EYE OINTMENT -DOES NOT REMEMBER REACTION 05/05/17) Home Med List: Acetaminophen (Tylenol Extra Strength) 500 MG TABLET 1 TAB PO BID PRN Knee pain/fracture Amlodipine (Norvasc) 2.5 MG TABLET 1 TAB PO DAILY HEART (Reported) Aspirin (Ecotrin*) 81 MG TABLET.DR 1 TAB PO DAILY Heart Escitalopram Oxalate (Lexapro) 20 MG TABLET 1 TAB PO DAILY DEPRESSION ( Reported) Famotidine 20 MG TABLET 1 TAB PO DAILY GI (Reported) Lactulose (Generlac) 10 GRAM/15 ML SOLUTION 10 GM PO D PRN CONSTIPATION ( Reported) Levothyroxine Sodium 125 MCG TABLET 1 TAB PO DAILY AC THYROID (Reported) Linaclotide (Linzess) 290 MCG CAPSULE 1 CAP PO DAILY BOWEL (Reported) Lisinopril (Prinivil) 5 MG TABLET 1 TAB PO DAILY BP (Reported) Melatonin 3 MG TABLET 1 TAB PO QPM SUPPLEMENT (Reported) Multiple Vitamin (Multivitamins) 1 EACH TABLET 1 TAB PO DAILY SUPPLEMENT ( Reported) Plecanatide (Trulance) 3 MG TABLET 1 TAB PO DAILY BOWEL REGIMEN (Reported) Sennosides (Senna) 8.6 MG TABLET 2 TAB PO BID GI (Reported) Simvastatin (Zocor*) 20 MG TABLET 1 TAB PO QPM CHOLESTEROL (Reported) Tamsulosin HCl (Flomax) 0.4 MG CAP.ER.24H 2 CAP PO DAILY PROSTATE (Reported) Warfarin Sodium (Coumadin) 7.5 MG TABLET 1 TAB PO 1700 BLOOD THINNER/DVTS ( Reported) Zolpidem Tartrate 5 MG TABLET 1 TAB PO QPM SLEEP (Reported) Past History Medical History Neurological: CVA (right with left hemiparesis), seizure EENT: NONE Cardiovascular: hypertension, hyperlipidemia, PVD, VSD Respiratory: NONE Gastrointestinal: NONE Hepatic: NONE Renal: NONE Musculoskeletal: NONE Psychiatric: NONE Endocrine: hypothyroidism Blood Disorders: DVT Cancer(s): NONE 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 . MOTHER (DM, Breast Ca, Stroke). . Psychosocial History Where Do You Live? Home Who Do You Live With? self Services at Home: Home Health Aide, Nursing Smoking Status: Never Smoked Functional Ability Ambulation: walker Exam & Diagnostic Data Vital Signs and I&O Vital Signs Date Time Temp Pulse Resp B/P B/P Pulse O2 O2 Flow FiO2 Mean Ox Delivery Rate 12/08 0608 98.0 80 18 138/88 97 12/08 0000 Nasal 2.0L Cannula 12/07 2228 98.3 83 19 132/70 98 Nasal Cannula 12/07 1600 Nasal 2.0L Cannula 12/07 1446 9.7 73 18 130/80 91 Nasal Cannula Intake & Output 12/08 1600 12/08 0800 12/08 0000 12/07 1600 12/07 0800 12/07 0000 Intake Total 650 400 655 Output Total Balance 650 400 655 Intake, IV 650 400 655 Intake, Oral 0 0 Number 1 1 Bowel Movements Patient 226 lb Weight Physical Exam: Patient is very lethargic lying in his bed somewhat confused poor historian. He was diagnosed with a right subcapital hip fracture of unknown age. Patient states he occasionally walks with a walker but is very lethargic and sits in a chair most of the time. He was admitted to the hospital for seizure activity intubated in the ICU and now has been transferred to the floor. He is on anticoagulation at this point in time. His other laboratory values seem within normal limit. Patient has pain around the right hip area he has venous stasis disease in both lower extremities. He is very immobile. He states he can feel some sensation in the lower extremities. He can wiggle his toes minimally. I did review his CAT scan which does show a displaced femoral neck fracture on the right side of indeterminate age. Assessment/Plan Assessment/Plan Patient is a 67-year-old very sick gentleman who has significant seizure history is very lethargic week can answer some questions he knows he had his left hip fixed a few years ago. He could not tell me who fixed that hip. He did not really understand that if indeed his hip is going to be fixed at some much bigger procedure with blood loss probable transfusions due to the fact that he is on steroids increased risk of infection. I will discuss this patient's care with the medical staff who is taking care of him. I will also try to contact the family and speak with them about his care. For this hip fracture he would have to have a hemiarthroplasty which is a replacement procedure with significantly more blood loss and risk of infection. Consult Acknowledgment - Thank you for your consult request. Attending MD Review Statement Attending Statement Attending MD Statement: examined this patient
[2017-12-08 10:13] LABS: ABSOLUTE BASOPHIL COUNT 0 /CUMM (0.0-0.2); ABSOLUTE EOSINOPHIL COUNT 0.1 /CUMM (0.0-0.7); ABSOLUTE GRANULOCYTE CT 5.8 /CUMM (1.4-6.5); ABSOLUTE LYMPH COUNT 0.5 /CUMM (1.2-3.4); ABSOLUTE MONOCYTE COUNT 0.5 /CUMM (0.10-0.60); BASOPHIL % 0.2 % (0.0-2.0); EOSINOPHIL % 1.9 % (0-5); HEMATOCRIT 31.2 % (42-52); MEAN CORPUSCULAR HGB 30.8 PG (27.0-31.0); MEAN CORPUSCULAR HGB CONC 33.7 G/DL (33.0-37.0); MEAN CORPUSCULAR VOLUME 91.2 FL (80.0-94.0); MEAN PLATELET VOLUME 6.5 FL (7.4-10.4); PLATELET COUNT 205 /CUMM (130-400); RED BLOOD CELL CT 3.42 /CUMM (4.70-6.10); WHITE BLOOD CELL COUNT 6.9 /CUMM (4.8-10.8)
[2017-12-08 11:06] LABS: PT 17.2 SEC (9.4-12.5)
[2017-12-08 11:46] LABS: GRANULOCYTE % 83.3 % (42.2-75.2)
[2017-12-08 14:02] VITALS: BP 106/72
[2017-12-08 14:14] VITALS: BP 106/72
--- NOTE | 2017-12-08 15:25 | Event Note ---
Event Note Event Note: Patient was discussed with the orthopedic surgeon, Dr. Flores. States patient and family are agreeable to surgery. Patient will be kept off coumadin and lovenox. Will start IV heparin drip for anticoagulation. Patient will likely get surgery on 12/10 or 12/11. Dr. Flores will inform the medical team.
--- NOTE | 2017-12-08 18:13 | PN- Pulmonary ---
Subjective HPI/Critical Care Issues: Reports feeling better with no new concerns. Unable to move his lower extremities. Vitals remained stable overnight. No chest pain, shortness of breath, no palpiations. No abdominal pain, nausea or vomiting. Review of Systems Constitutional: Reports: see HPI. Objective Current Medications: Current Medications Sig/Miladis Start time Last Medication Dose Route Stop Time Status Admin Acetaminophen 0 .STK-MED ONE 12/07 2325 DC IV Acetaminophen 500 MG BID PRN 12/07 1415 AC 12/08 PO 0854 Amlodipine Besylate 2.5 MG DAILY 12/08 0900 AC 12/08 PO 0853 Artificial Tears 2 GTT 4 TIMES/DAY 12/03 0900 AC 12/08 OPH 1725 Aspirin Buffered 81 MG DAILY 12/08 09 AC 12/08 PO 0852 Atorvastatin Calcium 10 MG 1700 12/07 1700 AC 12/08 PO 1725 Divalproex Sodium 750 MG BID 12/08 09 AC 12/08 PO 0852 Docusate Sodium 100 MG BID 12/07 2100 AC PO Erythromycin 1 EVERETT 4 TIMES/DAY 12/04 0900 AC 12/08 OPH 1725 Escitalopram Oxalate 20 MG DAILY 12/08 0900 AC 12/08 PO 0852 Famotidine 20 MG DAILY 12/08 09 AC 12/08 PO 0853 Heparin Sodium 25,000 UNIT Q24H 12/08 1530 AC 12/08 (Porcine) IV 1725 Sodium Chloride 500 ML Heparin Sodium 5,000 UNIT Q8 12/07 0808 DC 12/08 (Porcine) SC 1333 Lactulose 20 GM BID 12/03 2100 AC 12/08 PO 0852 Levetiracetam 1,000 MG BID 12/08 0900 AC 12/08 PO 0853 Levetiracetam 1,000 MG Q12 11/30 2100 DC 12/07 Sodium Chloride 100 ML IV 12/08 0100 2031 Levothyroxine Sodium 0.125 MG DAILY AC 12/08 0700 AC 12/08 PO 0629 Linaclotide 290 MCG DAILY 12/02 1515 AC 12/08 PO 0853 Lisinopril 5 MG DAILY 12/08 0900 AC 12/08 PO 0853 Magnesium Hydroxide 30 ML AT BEDTIME PRN 12/03 1815 AC PO Melatonin 3 MG QPM 12/07 2100 AC 12/07 PO 2040 Ondansetron HCl 4 MG Q6P PRN 12/04 1100 AC 12/04 IV 1057 Prednisolone 2 GTT 4 TIMES/DAY 12/07 1700 AC 12/08 OPH 12/08 2200 1725 Senna 187 MG AT BEDTIME 12/02 2099 AC 12/03 PO 2103 Senna/Docusate Sodium 1 TAB BID 12/07 2099 AC PO Tamsulosin HCl 0.8 MG DAILY 12/08 0900 AC 12/08 PO 0853 Valproate Sodium 750 MG Q12 11/30 2099 DC 12/07 Sodium Chloride 50 ML IV 12/08 0300 2157 Vital Signs & I&O Last 24 Hrs of Vitals and I&O: Vital Signs Date Time Temp Pulse Resp B/P B/P Pulse O2 O2 Flow FiO2 Mean Ox Delivery Rate 12/08 1414 98.1 81 20 106/72 97 Nasal 2.0L Cannula 12/08 1402 98.1 74 20 106/72 97 Nasal 2.0L Cannula 12/08 0853 83 128/88 12/08 0853 83 128/88 12/08 0853 83 128/88 12/08 0800 97 Nasal 2.0L Cannula 12/08 0608 98.0 80 18 138/88 97 12/08 0000 Nasal 2.0L Cannula 12/07 2228 98.3 83 19 132/70 98 Nasal Cannula Intake & Output 12/08 1600 12/08 0800 12/08 0000 Intake Total 360 Output Total Balance 360 Intake, Oral 360 Number 1 1 Bowel Movements Patient 226 lb Weight Laboratory Tests 12/08 12/07 0935 0326 Chemistry Sodium (137 - 145 mmol/L) 139 136 L Potassium (3.5 - 5.1 mmol/L) 4.1 3.7 Chloride (98 - 107 mmol/L) 103 104 Carbon Dioxide (22 - 30 mmol/L) 31 H 30 Anion Gap (5 - 16) 5 3 L BUN (9 - 20 mg/dL) 12 12 Creatinine (0.7 - 1.2 mg/dL) 0.8 0.7 Estimated GFR (>60 ml/min) > 60 > 60 BUN/Creatinine Ratio (7 - 25 %) 15.0 Glucose (65 - 99 mg/dL) 103 H Calcium (8.4 - 10.2 mg/dL) 8.1 L Phosphorus (2.5 - 4.5 mg/dL) 2.6 Magnesium (1.6 - 2.3 mg/dL) 1.8 Total Bilirubin (0.2 - 1.3 mg/dL) 1.0 AST (17 - 59 U/L) 31 ALT (21 - 72 U/L) 35 Albumin (3.5 - 5.0 g/dL) 2.7 L Coagulation PT (9.4 - 12.5 SEC) 17.2 H 20.8 H INR (0.90 - 1.17) 1.57 H 1.90 H Hematology CBC w Diff NO MAN DIFF REQ NO MAN DIFF REQ WBC (4.8 - 10.8 /CUMM) 6.9 5.9 RBC (4.70 - 6.10 /CUMM) 3.42 L 3.60 L Hgb (14.0 - 18.0 G/DL) 10.5 L 11.4 L Hct (42 - 52 %) 31.2 L 32.5 L MCV (80.0 - 94.0 FL) 91.2 90.3 MCH (27.0 - 31.0 PG) 30.8 31.5 H MCHC (33.0 - 37.0 G/DL) 33.7 34.9 RDW (11.5 - 14.5 %) 13.0 12.9 Plt Count (130 - 400 /CUMM) 205 154 MPV (7.4 - 10.4 FL) 6.5 L 6.7 L Gran % (42.2 - 75.2 %) 83.3 H 75.5 H Lymphocytes % (20.5 - 51.1 %) 6.9 L 13.9 L Monocytes % (1.7 - 9.3 %) 7.7 5.6 Eosinophils % (0 - 5 %) 1.9 4.9 Basophils % (0.0 - 2.0 %) 0.2 0.1 Absolute Granulocytes (1.4 - 6.5 /CUMM) 5.8 4.5 Absolute Lymphocytes (1.2 - 3.4 /CUMM) 0.5 L 0.8 L Absolute Monocytes (0.10 - 0.60 /CUMM) 0.5 0.3 Absolute Eosinophils (0.0 - 0.7 /CUMM) 0.1 0.3 Absolute Basophils (0.0 - 0.2 /CUMM) 0 0 Impression/Plan Impression/Plan Impression/Plan: Conjuctival swelling left side neck supple tenderness ribs bilat Chest mild crackles Cvs s1s2 arielle Abd soft spastic left hemiperesis FISCAL ANALYST exam Moves rt side 67 year old male with PMH Sz, 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, DVT on Warfarin, HTN, HLD, PVD, BPH, Hypothyroid, GERD, Depression with seizue disorder With * Resolved Recurrent persistant seizures (initially did not respond to Keppra and loaded with valproic acid and sub intubated and was on propofol-subsequently extubated with no further seizures) * One episode of Fever few days ago no better no evidence of meningitis patient has finished 5 days of antibiotics * Previous stroke with hemiparesis * Worsening poor performance status * REsolved Sinus tachycardia before now with on and off Sinus pauses * Rt hip pain, now with hip fracture and ortho note reviewed * Thrombocytopenia transient resolved * On anticoag now to be transitioned to heparin * Anemia with no overt signs of bleeding * Chronic elevated left hemidiaphragm with lower mediastinal shift to the right REC Cont seizure meds ORtho eval noted and transition to heparin without bolus Check cbc daily Will follow
[2017-12-08 21:34] VITALS: BP 170/110
[2017-12-09 00:46] LABS: PTT 54 SEC (25-37)
[2017-12-09 05:49] VITALS: BP 130/82
--- NOTE | 2017-12-09 08:24 | PN- Housestaff ---
Subjective Follow-up For: Breakthrough seizures DVT on warfarin Displaced right femoral neck fracture Constipation Subjective: Patient was seen and examined at bedside. He is still not able to move his lower extremity. He denies fever, chills, chest pain, sob and abdominal pain. Review of Systems Constitutional: Reports: see HPI. Objective Last 24 Hrs of Vital Signs/I&O Vital Signs Date Time Temp Pulse Resp B/P B/P Pulse O2 O2 Flow FiO2 Mean Ox Delivery Rate 12/09 0957 73 110/74 12/09 0957 73 110/74 12/09 0957 73 110/74 12/09 0800 97 Nasal 2.0L Cannula 12/09 0549 98.5 86 22 130/82 96 Nasal 2.0L Cannula 12/08 2134 98.5 98 18 170/110 98 12/08 1414 98.1 81 20 106/72 97 Nasal 2.0L Cannula 12/08 1402 98.1 74 20 106/72 97 Nasal 2.0L Cannula Intake & Output 12/09 1600 12/09 0800 12/09 0000 Intake Total 208 Output Total Balance 208 Intake, IV 208 Number 1 Bowel Movements Patient 229 lb 217 lb Weight Weight Bed scale Measurement Method Physical Exam General Appearance: Cooperative, No Acute Distress HEENT: left conjunctival swelling Neck: Supple Cardiovascular: Regular Rate, Normal S1 Lungs: b/l crackles Abdomen: Normal Bowel Sounds, Soft Assessment/Plan Assessment: Mr Pagan is a 67-year-old gentleman w/ a PMHx of seizure(on Keppra), 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 As per the EMR, he was diagnosed with seizures in 2013 and has been compliant with his medications, with good medication compliance. Given his continued breakthrough seizures, he was admitted to the ICU for airway protection. Pertinent lab findings in the last 24 hours: 12/07/17- WBC 7, hemoglobin 8.7, platelet count 177 INR 1.90 Not checked yesterday Imaging Modified barium swallow: With all consistencies, the oropharyngeal phase of swallowing is normal with no laryngeal or nasopharyngeal aspiration seen. No significant pooling of contrast is noted in the valleculae or piriform sinuses. Seizures : Etiology of seizures was thought to be due to noncompliance. He was given keppra and added depakote as continued to have seizures. He was intubated for airway protection, and was started on propofol. 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 LP could not be done successfully, due to technical issues. Repeat EEG on 12/03/17 revealed no evidence of seizure activity. He was eventually extubated without any competitions. He was continued on IV keppra 1gm BID, valproic acid 750mg BID. - Continue keprra - Monitor for seizures. Right hip pain: Pain reported pain and difficulty with moving right hip. hip X ray did show neck deformity but unable to pursue CT due as unstable to go at presentation. CT of hip did show laterally displaced femoral neck fracture 1.5cm. Patient is wheel chair bound and never moved out of the bed so far, although may not be a very good candidate for surgery. -Continue conservative management at this time. -Follow orthopedic surgery recs. -Pulmonary input appreciated: * Hemoglobin is dropping, will follow up in the PM * Would stop heparin if continues to drop * Active concerns for a retroperitoneal hemorrhage History of hypothyroidism: Continue po levothyroxine. History of HTN: BP is adequately controlled; continue home regimen. Monitor closely. Possible aspiration pneumonia: He was treated w/ a five day course of ceftriaxone. LRC and blood cultures remained negative. History of DVT on Coumadin: As per discussion with the family, the patient has history of DVT which resulted in a stroke through what his sister think is patent foramen ovale. 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 Due to drug interaction his INR remained supratherapeutic for few days. Dose and check INR daily. - Check INR and dose coumadin. Indirect Hyperbilirubinemia/ most likely Gilbert syndrome: On admission his bilirubin was 2.4, LFTs normal. Reviewing the patient's chart showed that he had similar episodes during previous admissions. Note from Dr. West back in 2013 suggested that the patient might have Gilbert disease. LFTs stable at this time. - Monitor for any changes. - No need for daily LFTs. History of old right MCA territory infarct with residual left-sided weakness chronic tremors on right hand. DVT prophylaxis: SC migue today Passed swallow eval and started on mechanical ground and thin liquids. Problem List: 1. Seizure disorder 2. Constipation 3. Physical deconditioning 4. Fracture, femur 5. Anemia Pain Ratin Pain Location: right hip pain Pain Goal: Pain 4 or less Pain Plan: pathway Tomorrow's Labs & Rationales: cbc, bep and prothromin time
[2017-12-09 09:25] LABS: ABSOLUTE BASOPHIL COUNT 0 /CUMM (0.0-0.2); ABSOLUTE LYMPH COUNT 0.6 /CUMM (1.2-3.4); WHITE BLOOD CELL COUNT 7.6 /CUMM (4.8-10.8)
[2017-12-09 09:37] LABS: ABSOLUTE EOSINOPHIL COUNT 0 /CUMM (0.0-0.7); ABSOLUTE GRANULOCYTE CT 6.4 /CUMM (1.4-6.5); ABSOLUTE MONOCYTE COUNT 0.6 /CUMM (0.10-0.60); BASOPHIL % 0.2 % (0.0-2.0); EOSINOPHIL % 0.5 % (0-5); GRANULOCYTE % 83.4 % (42.2-75.2); MEAN CORPUSCULAR VOLUME 91.1 FL (80.0-94.0); MEAN PLATELET VOLUME 6.7 FL (7.4-10.4); PLATELET COUNT 177 /CUMM (130-400); RBC DISTRIBUTION WIDTH 13.3 % (11.5-14.5)
[2017-12-09 09:39] LABS: HEMATOCRIT 25.5 % (42-52)
--- NOTE | 2017-12-09 11:12 | PN- Pulmonary ---
Subjective HPI/Critical Care Issues: Doing ok Still in pain No furthe seizures Objective Current Medications: Current Medications Sig/Miladis Start time Last Medication Dose Route Stop Time Status Admin Acetaminophen 0 .STK-MED ONE 12/09 1030 DC PO Acetaminophen 0 .STK-MED ONE 12/08 2124 DC PO Acetaminophen 500 MG BID PRN 12/07 1415 AC 12/09 PO 1039 Amlodipine Besylate 2.5 MG DAILY 12/08 09 AC 12/09 PO 0957 Artificial Tears 2 GTT 4 TIMES/DAY 12/03 09 AC 12/09 OPH 0958 Aspirin Buffered 81 MG DAILY 12/08 09 AC 12/09 PO 0957 Atorvastatin Calcium 10 MG 1700 12/07 1700 AC 12/08 PO 1725 Divalproex Sodium 750 MG BID 12/08 09 AC 12/09 PO 0957 Docusate Sodium 100 MG BID 12/07 2100 AC 12/09 PO 0957 Erythromycin 1 EVERETT 4 TIMES/DAY 12/04 0900 AC 12/09 OPH 0958 Escitalopram Oxalate 20 MG DAILY 12/08 09 AC 12/09 PO 0957 Famotidine 20 MG DAILY 12/08 09 AC 12/09 PO 0957 Heparin Sodium 0 .STK-MED ONE 12/09 0420 DC (Porcine) .ROUTE Heparin Sodium 3,939 UNIT BOLUS ONE 12/09 0345 DC 12/09 (Porcine) IV 12/09 0346 0424 Heparin Sodium 25,000 UNIT Q24H 12/08 1530 AC 12/09 (Porcine) IV 0425 Sodium Chloride 500 ML Heparin Sodium 5,000 UNIT Q8 12/07 0808 DC 12/08 (Porcine) SC 1333 Lactulose 20 GM BID 12/03 2100 AC 12/09 PO 0957 Levetiracetam 1,000 MG BID 12/08 0900 AC 12/09 PO 0957 Levothyroxine Sodium 0.125 MG DAILY AC 12/08 0700 AC 12/09 PO 0723 Linaclotide 290 MCG DAILY 12/02 1515 AC 12/09 PO 0957 Lisinopril 5 MG DAILY 12/08 0900 AC 12/09 PO 0957 Magnesium Hydroxide 30 ML AT BEDTIME PRN 12/03 1815 AC PO Melatonin 3 MG QPM 12/07 2100 AC 12/08 PO 2136 Ondansetron HCl 4 MG Q6P PRN 12/04 1100 AC 12/04 IV 1057 Prednisolone 2 GTT 4 TIMES/DAY 12/07 1700 DC 12/08 OPH 12/08 2200 2136 Senna 187 MG AT BEDTIME 12/02 2099 AC 12/08 PO 212 Senna/Docusate Sodium 1 TAB BID 12/07 2099 AC 12/09 PO 0957 Tamsulosin HCl 0.8 MG DAILY 12/08 0900 AC 12/09 PO 0957 Vital Signs & I&O Last 24 Hrs of Vitals and I&O: Vital Signs Date Time Temp Pulse Resp B/P B/P Pulse O2 O2 Flow FiO2 Mean Ox Delivery Rate 12/09 0957 73 110/74 12/09 0957 73 110/74 12/09 0957 73 110/74 12/09 0549 98.5 86 22 130/82 96 Nasal 2.0L Cannula 12/08 2134 98.5 98 18 170/110 98 12/08 1414 98.1 81 20 106/72 97 Nasal 2.0L Cannula 12/08 1402 98.1 74 20 106/72 97 Nasal 2.0L Cannula Intake & Output 12/09 1600 12/09 0800 12/09 0000 Intake Total 208 Output Total Balance 208 Intake, IV 208 Number 1 Bowel Movements Patient 229 lb 217 lb Weight Weight Bed scale Measurement Method Impression/Plan Impression/Plan Impression/Plan: Conjuctival swelling left side neck supple tenderness ribs bilat Chest mild crackles Cvs s1s2 arielle Abd soft spastic left hemiperesis 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 67 year old male with PMH Sz, 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, DVT on Warfarin, HTN, HLD, PVD, BPH, Hypothyroid, GERD, Depression with seizue disorder With * Resolved Recurrent persistant seizures (initially did not respond to Keppra and loaded with valproic acid and sub intubated and was on propofol-subsequently extubated with no further seizures) * One episode of Fever few days ago no better no evidence of meningitis patient has finished 5 days of antibiotics * Previous stroke with hemiparesis * Worsening poor performance status * REsolved Sinus tachycardia before now with on and off Sinus pauses * Rt hip pain, now with hip fracture and ortho note reviewed * Thrombocytopenia transient resolved * On anticoag now on heparin / sig anemia noted since yesterday * Anemia with no overt signs of bleeding * Chronic elevated left hemidiaphragm with lower mediastinal shift to the right REC Cont seizure meds Check cbc this pm and check all stool for guiac /and or rectal if no bm IF hemoglobin drops further dc heparin and check ct abd and pelvis with hip incuded to rule out retroperitoneal hemorrhage or hip hematoma -if guiac is neg ORtho eval noted WIll follow
[2017-12-09 12:32] LABS: PTT 62 SEC (25-37)
[2017-12-09 14:34] VITALS: BP 100/70
[2017-12-09 17:23] LABS: PT 14.8 SEC (9.4-12.5)
[2017-12-09 21:01] LABS: ABSOLUTE BASOPHIL COUNT 0 /CUMM (0.0-0.2); ABSOLUTE EOSINOPHIL COUNT 0.1 /CUMM (0.0-0.7); ABSOLUTE GRANULOCYTE CT 6.2 /CUMM (1.4-6.5); ABSOLUTE LYMPH COUNT 0.7 /CUMM (1.2-3.4); ABSOLUTE MONOCYTE COUNT 0.5 /CUMM (0.10-0.60); BASOPHIL % 0.3 % (0.0-2.0); EOSINOPHIL % 0.9 % (0-5); GRANULOCYTE % 83.3 % (42.2-75.2); HEMATOCRIT 24.1 % (42-52); MEAN CORPUSCULAR HGB 31.3 PG (27.0-31.0); MEAN CORPUSCULAR HGB CONC 34.1 G/DL (33.0-37.0); MEAN CORPUSCULAR VOLUME 91.9 FL (80.0-94.0); MEAN PLATELET VOLUME 7.1 FL (7.4-10.4); PLATELET COUNT 185 /CUMM (130-400); RBC DISTRIBUTION WIDTH 13.6 % (11.5-14.5); RED BLOOD CELL CT 2.63 /CUMM (4.70-6.10)
[2017-12-09 21:50] VITALS: BP 134/90
[2017-12-09 22:05] LABS: WHITE BLOOD CELL COUNT 7.5 /CUMM (4.8-10.8)
[2017-12-10 00:26] LABS: PTT 44 SEC (25-37)
--- NOTE | 2017-12-10 02:44 | Event Note ---
Event Note Event Note: Patient with reports of severe 9/10 low back pain and right hip pain. Patient given Morphine 2mg IV x 1 dose without relief of symptoms. Dr. Murray's recs noted. Hgb in the evening of 12/09 was 8.2 from 8.7. Rectal exam: stool guiac negative. Patient refusing to have CT abd/pelv until morning. Will give Roxicodone 10mg one time dose for pain relief. Will order CT abd/pelv per Dr. Murray's recs, but for AM at patient request. Will follow up AM hgb to assess for further drop in hemoglobin. Heparin should be DC if hemoglobin drops further.
[2017-12-10 05:34] VITALS: BP 118/64
[2017-12-10 08:15] LABS: ABSOLUTE BASOPHIL COUNT 0 /CUMM (0.0-0.2); ABSOLUTE EOSINOPHIL COUNT 0 /CUMM (0.0-0.7); ABSOLUTE GRANULOCYTE CT 5.8 /CUMM (1.4-6.5); ABSOLUTE LYMPH COUNT 0.6 /CUMM (1.2-3.4); ABSOLUTE MONOCYTE COUNT 0.5 /CUMM (0.10-0.60); BASOPHIL % 0.1 % (0.0-2.0); EOSINOPHIL % 0.6 % (0-5); GRANULOCYTE % 83.2 % (42.2-75.2); HEMATOCRIT 22.4 % (42-52); MEAN CORPUSCULAR HGB 30.9 PG (27.0-31.0); MEAN CORPUSCULAR HGB CONC 33.5 G/DL (33.0-37.0); MEAN CORPUSCULAR VOLUME 92.2 FL (80.0-94.0); MEAN PLATELET VOLUME 7.1 FL (7.4-10.4); PLATELET COUNT 184 /CUMM (130-400); RBC DISTRIBUTION WIDTH 13.9 % (11.5-14.5); RED BLOOD CELL CT 2.43 /CUMM (4.70-6.10)
--- NOTE | 2017-12-10 08:24 | PN- Housestaff ---
Subjective Follow-up For: Dropping H&H, right femur fracture Subjective: Patient seen and examined at bedside. Patient was a little bit drowsy but oriented in time place person, he said he denied CT abdomen and pelvis but now he wanted to do. He was doing his breakfast condition was better compared to yesterday. He denies chest pain, palpitation, abdominal pain, diarrhea, constipation, burning micturition, fevers, chills. Review of Systems Constitutional: Reports: see HPI. Objective Last 24 Hrs of Vital Signs/I&O Vital Signs Date Time Temp Pulse Resp B/P B/P Pulse O2 O2 Flow FiO2 Mean Ox Delivery Rate 12/10 1548 99.6 85 20 130/70 93 12/10 0931 74 108/72 12/10 0931 74 108/72 12/10 0931 74 108/72 12/10 0800 98 Nasal 2.0L Cannula 12/10 0534 97.7 72 16 118/64 97 Nasal 2.0L Cannula 12/10 0000 96 Nasal 2.0L Cannula 12/09 2150 99.0 76 18 134/90 96 Intake & Output 12/10 1600 12/10 0800 12/10 0000 Intake Total 400 455.6 239.6 Output Total Balance 400 455.6 239.6 Intake, IV 305.6 119.6 Intake, Oral 400 150 120 Patient 218 lb Weight Weight Bed scale Measurement Method Physical Exam General Appearance: Alert, Oriented X3, Cooperative Assessment/Plan Assessment: 67-year-old male (post seizure, post intubation), shifted from ICU with past medical history of seizures, 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 Problems list: -Right femur neck fracture with a hematoma and anemia -Resolved recurrent persistent seizure -Resolved fever completed 5 days antibiotic course -Resolved sinus tachycardia - Plan: -Acute H&H drop: Reduce Packed RBC arrange, blood transfusion will be done today. We will follow H&H. *Right femur neck fracture: -Orthopedic consult appreciated _Surgery is planned tomorrow -Patient will be n.p.o. from midnight -We will follow orthopedic notes -Hemiarthroplasty will be done, anticoagulant on hold -Patient had elevation of the 30 to avoid aspiration -DVT prophylaxis -Full code Problem List: 1. CVA 2. Hemiparesis 3. Hyperlipidemia 4. Weakness 5. Hip fracture 6. Seizure disorder 7. Fracture, femur 8. Anemia Pain Ratin Pain Location: Right hip Pain Goal: Remain pain free Pain Plan: Pain pathway Tomorrow's Labs & Rationales: CBCs, BEP
[2017-12-10 09:43] LABS: WHITE BLOOD CELL COUNT 6.9 /CUMM (4.8-10.8)
[2017-12-10 10:15] LABS: PTT 84 SEC (25-37)
--- NOTE | 2017-12-10 10:27 | PN- Att Addend ---
Attending Addendum Attending Brief Note Patient out of ICU. Patient refused yesterday to go for CAT scan of the abdomen will be scheduled today The workup of this anemia. Stools apparently were checked for occult blood and were negative. Orthopedic consultation was requested regarding his sure if patient is stable after the hematology evaluation then will clear for surgery. Laboratory Tests 12/10/17 0910: PT Pending, INR Pending, APTT Pending 12/10/17 0650: Anion Gap 3 L, Estimated GFR > 60, BUN/Creatinine Ratio 17.1, APTT Cancelled, CBC w Diff NO MAN DIFF REQ, RBC 2.43 L, MCV 92.2, MCH 30.9, MCHC 33.5, RDW 13.9 , MPV 7.1 L, Gran % 83.2 H, Lymphocytes % 9.0 L, Monocytes % 7.1, Eosinophils % 0.6, Basophils % 0.1, Absolute Granulocytes 5.8, Absolute Lymphocytes 0.6 L, Absolute Monocytes 0.5, Absolute Eosinophils 0, Absolute Basophils 0 12/09/17 2255: APTT 44 H 12/09/17 1956: Anion Gap 4 L, Estimated GFR > 60, BUN/Creatinine Ratio 18.6, CBC w Diff NO MAN DIFF REQ, RBC 2.63 L, MCV 91.9, MCH 31.3 H, MCHC 34.1, RDW 13.6, MPV 7.1 L, Gran % 83.3 H, Lymphocytes % 8.8 L, Monocytes % 6.7, Eosinophils % 0.9, Basophils % 0.3, Absolute Granulocytes 6.2, Absolute Lymphocytes 0.7 L, Absolute Monocytes 0.5, Absolute Eosinophils 0.1, Absolute Basophils 0 12/09/17 1058: PT 14.8 H, INR 1.35 H, APTT 62 H 12/09/17 0837: Anion Gap 5, Estimated GFR > 60, BUN/Creatinine Ratio 16.3, PT Cancelled, INR Cancelled, APTT Cancelled, CBC w Diff NO MAN DIFF REQ, RBC 2.80 L, MCV 91.1, MCH 31.0, MCHC 34.0, RDW 13.3, MPV 6.7 L, Gran % 83.4 H, Lymphocytes % 7.5 L, Monocytes % 8.4, Eosinophils % 0.5, Basophils % 0.2, Absolute Granulocytes 6.4, Absolute Lymphocytes 0.6 L, Absolute Monocytes 0.6, Absolute Eosinophils 0, Absolute Basophils 0 12/09/17 0025: APTT 54 H 12/08/17 0935: Anion Gap 5, Estimated GFR > 60, BUN/Creatinine Ratio 15.0, PT 17.2 H, INR 1.57 H, CBC w Diff NO MAN DIFF REQ, RBC 3.42 L, MCV 91.2, MCH 30.8, MCHC 33.7, RDW 13.0, MPV 6.5 L, Gran % 83.3 H, Lymphocytes % 6.9 L, Monocytes % 7.7, Eosinophils % 1.9, Basophils % 0.2, Absolute Granulocytes 5.8, Absolute Lymphocytes 0.5 L, Absolute Monocytes 0.5, Absolute Eosinophils 0.1, Absolute Basophils 0 Laboratory Tests 12/10/17 0910: PT Pending, INR Pending, APTT Pending 12/10/17 0650: Anion Gap 3 L, Estimated GFR > 60, BUN/Creatinine Ratio 17.1, APTT Cancelled, CBC w Diff NO MAN DIFF REQ, RBC 2.43 L, MCV 92.2, MCH 30.9, MCHC 33.5, RDW 13.9 , MPV 7.1 L, Gran % 83.2 H, Lymphocytes % 9.0 L, Monocytes % 7.1, Eosinophils % 0.6, Basophils % 0.1, Absolute Granulocytes 5.8, Absolute Lymphocytes 0.6 L, Absolute Monocytes 0.5, Absolute Eosinophils 0, Absolute Basophils 0 12/09/17 2255: APTT 44 H 12/09/17 1956: Anion Gap 4 L, Estimated GFR > 60, BUN/Creatinine Ratio 18.6, CBC w Diff NO MAN DIFF REQ, RBC 2.63 L, MCV 91.9, MCH 31.3 H, MCHC 34.1, RDW 13.6, MPV 7.1 L, Gran % 83.3 H, Lymphocytes % 8.8 L, Monocytes % 6.7, Eosinophils % 0.9, Basophils % 0.3, Absolute Granulocytes 6.2, Absolute Lymphocytes 0.7 L, Absolute Monocytes 0.5, Absolute Eosinophils 0.1, Absolute Basophils 0 12/09/17 1058: PT 14.8 H, INR 1.35 H, APTT 62 H 12/09/17 0837: Anion Gap 5, Estimated GFR > 60, BUN/Creatinine Ratio 16.3, PT Cancelled, INR Cancelled, APTT Cancelled, CBC w Diff NO MAN DIFF REQ, RBC 2.80 L, MCV 91.1, MCH 31.0, MCHC 34.0, RDW 13.3, MPV 6.7 L, Gran % 83.4 H, Lymphocytes % 7.5 L, Monocytes % 8.4, Eosinophils % 0.5, Basophils % 0.2, Absolute Granulocytes 6.4, Absolute Lymphocytes 0.6 L, Absolute Monocytes 0.6, Absolute Eosinophils 0, Absolute Basophils 0 12/09/17 0025: APTT 54 H Vital Signs Date Time Temp Pulse Resp B/P B/P Pulse O2 O2 Flow FiO2 Mean Ox Delivery Rate 12/10 0931 74 108/72 12/10 0931 74 108/72 12/10 0931 74 108/72 12/10 0534 97.7 72 16 118/64 97 Nasal 2.0L Cannula 12/10 0000 96 Nasal 2.0L Cannula 12/09 2150 99.0 76 18 134/90 96 12/09 1434 97.5 74 18 100/70 95 Nasal 2.0L Cannula
--- NOTE | 2017-12-10 11:43 | CT SCAN REPORT ---
EXAMINATION: CT ABDOMEN AND PELVIS WITHOUT CONTRAST CLINICAL INFORMATION: Right hip fracture. Low back pain. Rule out retroperitoneal bleed. Downward hemoglobin. COMPARISON: CT of the right lower extremity 12/06/2017. TECHNIQUE: Multidetector volumetric imaging was performed from the superior aspect of the liver through the pubic symphysis. Sagittal and coronal reformatted images were obtained on the technologist's workstation. DLP: 1489 mGy-cm FINDINGS: LUNG BASES: There is no consolidation at the lung bases. Bilateral atelectasis is noted. There are small bilateral pleural effusions. The mediastinal structures are shifted to the right and there is elevation of the left hemidiaphragm. LIVER, GALLBLADDER, AND BILIARY TREE: Multiple scattered foci of hypoattenuation are noted throughout the liver compatible with cysts and unchanged compared with prior. The gallbladder is contracted and not well evaluated. PANCREAS: Unremarkable. SPLEEN: Unremarkable. ADRENAL GLANDS: Unremarkable. KIDNEYS AND URETERS: There is no hydronephrosis, mass, or calculus. Bilateral perinephric stranding is noted, a nonspecific finding. BLADDER: Unremarkable. GASTROINTESTINAL TRACT: There is barium throughout the colon which results in some streak artifact. No bowel obstruction is seen. ABDOMINAL WALL: Small fat-containing periumbilical hernia. LYMPH NODES: No suspicious lymph nodes identified. VASCULAR: An infrarenal IVC filter is present. Atheromatous changes are present in the abdominal aorta and its branch vessels. PELVIC VISCERA: Unremarkable. OSSEOUS STRUCTURES: Redemonstration of a mildly displaced fracture through the right femoral neck. There is new intramuscular hematoma within the anterior compartment of the thigh and associated infiltration of the adjacent fascial spaces. The right iliacus muscle is also diffusely enlarged compatible with additional hematoma. There is mild stranding within the right-sided retroperitoneal compartment but no well-formed hematoma is seen. There is an intramedullary jaspreet and gamma nail in the left femur. Multilevel degenerative spondylotic changes are seen in the lumbar spine with multiple mild biconcave lumbar compression fractures noted. IMPRESSION: - Redemonstration of mildly displaced fracture of the right femoral neck. - New intramuscular hematoma involving the anterior thigh compartment and iliacus muscles with mild retroperitoneal stranding also seen without discrete retroperitoneal hematoma - No acute abnormality in the abdomen. This critical result was discussed with Dr. Vidal on 12/10/2017 11:38 AM, and it was ascertained that the content and urgency of the report was understood at the time of direct communication.
--- NOTE | 2017-12-10 12:07 | PN- Pulmonary ---
Subjective HPI/Critical Care Issues: Hematoma noted in the groin stable other manuel Heparin stopped for now Objective Current Medications: Current Medications Sig/Miladis Start time Last Medication Dose Route Stop Time Status Admin Acetaminophen 500 MG BID PRN 12/07 1415 AC 12/09 PO 205 Amlodipine Besylate 2.5 MG DAILY 12/08 09 AC 12/10 PO 0931 Artificial Tears 2 GTT 4 TIMES/DAY 12/03 09 AC 12/10 OPH 0932 Aspirin Buffered 81 MG DAILY 12/08 09 AC 12/10 PO 0931 Atorvastatin Calcium 10 MG 1700 12/07 1700 AC 12/09 PO 1651 Divalproex Sodium 750 MG BID 12/08 09 AC 12/10 PO 0932 Docusate Sodium 100 MG BID 12/07 2100 AC 12/10 PO 0932 Erythromycin 1 EVERETT 4 TIMES/DAY 12/04 09 AC 12/10 OPH 0932 Escitalopram Oxalate 20 MG DAILY 12/08 09 AC 12/10 PO 0931 Famotidine 20 MG DAILY 12/08 09 AC 12/10 PO 0931 Heparin Sodium 7,790 UNIT ONCE ONE 12/10 0145 DC 12/10 (Porcine) IV 12/10 0146 0140 Heparin Sodium 25,000 UNIT Q24H 12/08 1530 DC 12/10 (Porcine) IV 0529 Sodium Chloride 500 ML Lactulose 20 GM BID 12/03 2100 AC 12/10 PO 0932 Levetiracetam 1,000 MG BID 12/08 0900 AC 12/10 PO 0931 Levothyroxine Sodium 0.125 MG DAILY AC 12/08 0700 AC 12/10 PO 0529 Linaclotide 290 MCG DAILY 12/02 1515 AC 12/10 PO 0930 Lisinopril 5 MG DAILY 12/08 0900 AC 12/10 PO 0931 Magnesium Hydroxide 30 ML AT BEDTIME PRN 12/03 1815 AC PO Melatonin 3 MG QPM 12/07 2100 AC 12/08 PO 2136 Morphine Sulfate 2 MG ONCE ONE 12/09 2230 DC 12/09 IV 12/09 2230 2255 Ondansetron HCl 4 MG Q6P PRN 12/04 1100 AC 12/04 IV 1057 Oxycodone HCl 0 .STK-MED ONE 12/10 0223 DC PO Oxycodone HCl 10 MG ONCE ONE 12/10 0215 DC 12/10 PO 12/10 0216 0221 Senna 187 MG AT BEDTIME 12/02 2099 AC 12/08 PO 212 Senna/Docusate Sodium 1 TAB BID 12/07 2099 AC 12/10 PO 0932 Tamsulosin HCl 0.8 MG DAILY 12/08 899 AC 12/10 PO 0931 Vital Signs & I&O Last 24 Hrs of Vitals and I&O: Vital Signs Date Time Temp Pulse Resp B/P B/P Pulse O2 O2 Flow FiO2 Mean Ox Delivery Rate 12/10 930 74 108/72 12/10 0931 74 108/72 12/10 0931 74 108/72 12/10 0534 97.7 72 16 118/64 97 Nasal 2.0L Cannula 12/10 0000 96 Nasal 2.0L Cannula 12/09 2150 99.0 76 18 134/90 96 12/09 1434 97.5 74 18 100/70 95 Nasal 2.0L Cannula Intake & Output 12/10 1600 12/10 0800 12/10 0000 Intake Total 455.6 239.6 Output Total Balance 455.6 239.6 Intake, IV 305.6 119.6 Intake, Oral 150 120 Impression/Plan Impression/Plan Impression/Plan: Conjuctival swelling left side neck supple tenderness ribs bilat Chest mild crackles Cvs s1s2 arielle Abd soft spastic left hemiperesis 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 67 year old male with PMH Sz, 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, DVT on Warfarin, HTN, HLD, PVD, BPH, Hypothyroid, GERD, Depression with seizue disorder With * Hip fracture now with a sig hematoma of the thigh with anemia * Resolved Recurrent persistant seizures (initially did not respond to Keppra and loaded with valproic acid and sub intubated and was on propofol-subsequently extubated with no further seizures) * Resolved Fever few days ago no better no evidence of meningitis patient has finished 5 days of antibiotics * Previous stroke with hemiparesis * Worsening poor performance status * REsolved Sinus tachycardia before now with on and off Sinus pauses * Rt hip fracture and ortho note reviewed * Thrombocytopenia transient resolved * Was On anticoag now on heparin / sig anemia noted since yesterday/ now hematoma * Chronic elevated left hemidiaphragm with lower mediastinal shift to the right REC Cont seizure meds Check cbc and transfuse Ortho to follow Venodyne boots Will follow prn and will sign off call for issues
--- NOTE | 2017-12-10 15:19 | PN- Orthopedic ---
Subjective Subjective: Patient seen by our team earlier this morning. Apparently he had previously refused a CT scan, but agreed to this study this morning, which identified an intramuscular hematoma of the same thigh involving his subcapital hip fracture. There was no evidence of any siginificant retroperitoneal hematoma. The heparin drip he was receiving this morning was subsequently stopped, in the setting of his worsening anemia and CT scan findings of the hematoma. The patient was not made NPO this morning, and will be receiving a blood transfusion later due to the anemia and anticipation of surgery tomorrow. Objective Vital Signs and I&Os Vital Signs Date Time Temp Pulse Resp B/P B/P Pulse O2 O2 Flow FiO2 Mean Ox Delivery Rate 12/10 09 74 108/72 12/10 0931 74 108/72 12/10 09 74 108/72 12/10 0800 98 Nasal 2.0L Cannula 12/10 0534 97.7 72 16 118/64 97 Nasal 2.0L Cannula 12/10 0000 96 Nasal 2.0L Cannula 12/09 2150 99.0 76 18 134/90 96 Intake & Output 12/10 1600 12/10 0812/10 0000 12/09 1600 12/09 0800 12/09 0000 Intake Total 455.6 239.6 240 208 Output Total Balance 455.6 239.6 240 208 Intake, IV 305.6 119.6 208 Intake, Oral 150 120 240 Number 1 Bowel Movements Patient 218 lb 229 lb 217 lb Weight Weight Bed scale Bed scale Measurement Method Current Medications: Current Medications Sig/Miladis Start time Last Medication Dose Route Stop Time Status Admin Acetaminophen 500 MG BID PRN 12/07 1415 AC 12/10 PO 1358 Amlodipine Besylate 2.5 MG DAILY 12/08 899 AC 12/10 PO 0931 Artificial Tears 2 GTT 4 TIMES/DAY 12/03 899 AC 12/10 OPH 1327 Aspirin Buffered 81 MG DAILY 12/08 899 AC 12/10 PO 0931 Atorvastatin Calcium 10 MG 1700 12/07 1700 AC 12/09 PO 1651 Divalproex Sodium 750 MG BID 12/08 899 AC 12/10 PO 0932 Docusate Sodium 100 MG BID 12/07 2100 AC 12/10 PO 0932 Erythromycin 1 EVERETT 4 TIMES/DAY 12/04 899 AC 12/10 OPH 1327 Escitalopram Oxalate 20 MG DAILY 12/08 899 AC 12/10 PO 0931 Famotidine 20 MG DAILY 12/08 09 AC 12/10 PO 0931 Heparin Sodium 7,790 UNIT ONCE ONE 12/10 0145 DC 12/10 (Porcine) IV 12/10 0146 0140 Heparin Sodium 25,000 UNIT Q24H 12/08 1530 DC 12/10 (Porcine) IV 0529 Sodium Chloride 500 ML Lactulose 20 GM BID 12/03 2100 AC 12/10 PO 0932 Levetiracetam 1,000 MG BID 12/08 09 AC 12/10 PO 0931 Levothyroxine Sodium 0.125 MG DAILY AC 12/08 0700 AC 12/10 PO 0529 Linaclotide 290 MCG DAILY 12/02 1515 AC 12/10 PO 0930 Lisinopril 5 MG DAILY 12/08 09 AC 12/10 PO 0931 Magnesium Hydroxide 30 ML AT BEDTIME PRN 12/03 1815 AC PO Melatonin 3 MG QPM 12/07 2100 AC 12/08 PO 2136 Morphine Sulfate 2 MG ONCE ONE 12/09 2229 DC 12/09 IV 12/09 2231 2255 Ondansetron HCl 4 MG Q6P PRN 12/04 1100 AC 12/04 IV 1057 Oxycodone HCl 0 .STK-MED ONE 12/10 0223 DC PO Oxycodone HCl 10 MG ONCE ONE 12/10 0215 DC 12/10 PO 12/10 0216 0221 Senna 187 MG AT BEDTIME 12/02 2100 AC 12/08 PO 2128 Senna/Docusate Sodium 1 TAB BID 12/07 2100 AC 12/10 PO 0932 Tamsulosin HCl 0.8 MG DAILY 12/08 09 AC 12/10 PO 0931 Results Last 48 Hours of Labs: Laboratory Tests 12/10 12/10 12/09 0910 0650 2255 Chemistry Sodium (137 - 145 mmol/L) 135 L Potassium (3.5 - 5.1 mmol/L) 3.8 Chloride (98 - 107 mmol/L) 100 Carbon Dioxide (22 - 30 mmol/L) 31 H Anion Gap (5 - 16) 3 L BUN (9 - 20 mg/dL) 12 Creatinine (0.7 - 1.2 mg/dL) 0.7 Estimated GFR (>60 ml/min) > 60 BUN/Creatinine Ratio (7 - 25 %) 17.1 Coagulation PT (9.4 - 12.5 SEC) 14.0 H INR (0.90 - 1.17) 1.28 H APTT (25 - 37 SEC) 84 H Cancelled 44 H Hematology CBC w Diff NO MAN DIFF REQ WBC (4.8 - 10.8 /CUMM) 6.9 RBC (4.70 - 6.10 /CUMM) 2.43 L Hgb (14.0 - 18.0 G/DL) 7.5 L Hct (42 - 52 %) 22.4 L MCV (80.0 - 94.0 FL) 92.2 MCH (27.0 - 31.0 PG) 30.9 MCHC (33.0 - 37.0 G/DL) 33.5 RDW (11.5 - 14.5 %) 13.9 Plt Count (130 - 400 /CUMM) 184 MPV (7.4 - 10.4 FL) 7.1 L Gran % (42.2 - 75.2 %) 83.2 H Lymphocytes % (20.5 - 51.1 %) 9.0 L Monocytes % (1.7 - 9.3 %) 7.1 Eosinophils % (0 - 5 %) 0.6 Basophils % (0.0 - 2.0 %) 0.1 Absolute Granulocytes (1.4 - 6.5 /CUMM) 5.8 Absolute Lymphocytes (1.2 - 3.4 /CUMM) 0.6 L Absolute Monocytes (0.10 - 0.60 /CUMM) 0.5 Absolute Eosinophils (0.0 - 0.7 /CUMM) 0 Absolute Basophils (0.0 - 0.2 /CUMM) 0 12/09 1058 Chemistry Sodium (137 - 145 mmol/L) 140 Potassium (3.5 - 5.1 mmol/L) 4.2 Chloride (98 - 107 mmol/L) 102 Carbon Dioxide (22 - 30 mmol/L) 34 H Anion Gap (5 - 16) 4 L BUN (9 - 20 mg/dL) 13 Creatinine (0.7 - 1.2 mg/dL) 0.7 Estimated GFR (>60 ml/min) > 60 BUN/Creatinine Ratio (7 - 25 %) 18.6 Coagulation PT (9.4 - 12.5 SEC) 14.8 H INR (0.90 - 1.17) 1.35 H APTT (25 - 37 SEC) 62 H Hematology CBC w Diff NO MAN DIFF REQ WBC (4.8 - 10.8 /CUMM) 7.5 RBC (4.70 - 6.10 /CUMM) 2.63 L Hgb (14.0 - 18.0 G/DL) 8.2 L Hct (42 - 52 %) 24.1 L MCV (80.0 - 94.0 FL) 91.9 MCH (27.0 - 31.0 PG) 31.3 H MCHC (33.0 - 37.0 G/DL) 34.1 RDW (11.5 - 14.5 %) 13.6 Plt Count (130 - 400 /CUMM) 185 MPV (7.4 - 10.4 FL) 7.1 L Gran % (42.2 - 75.2 %) 83.3 H Lymphocytes % (20.5 - 51.1 %) 8.8 L Monocytes % (1.7 - 9.3 %) 6.7 Eosinophils % (0 - 5 %) 0.9 Basophils % (0.0 - 2.0 %) 0.3 Absolute Granulocytes (1.4 - 6.5 /CUMM) 6.2 Absolute Lymphocytes (1.2 - 3.4 /CUMM) 0.7 L Absolute Monocytes (0.10 - 0.60 /CUMM) 0.5 Absolute Eosinophils (0.0 - 0.7 /CUMM) 0.1 Absolute Basophils (0.0 - 0.2 /CUMM) 0 12/09 12/09 0837 0025 Chemistry Sodium (137 - 145 mmol/L) 140 Potassium (3.5 - 5.1 mmol/L) 4.0 Chloride (98 - 107 mmol/L) 102 Carbon Dioxide (22 - 30 mmol/L) 34 H Anion Gap (5 - 16) 5 BUN (9 - 20 mg/dL) 13 Creatinine (0.7 - 1.2 mg/dL) 0.8 Estimated GFR (>60 ml/min) > 60 BUN/Creatinine Ratio (7 - 25 %) 16.3 Coagulation PT Cancelled INR Cancelled APTT (25 - 37 SEC) Cancelled 54 H Hematology CBC w Diff NO MAN DIFF REQ WBC (4.8 - 10.8 /CUMM) 7.6 RBC (4.70 - 6.10 /CUMM) 2.80 L Hgb (14.0 - 18.0 G/DL) 8.7 L Hct (42 - 52 %) 25.5 L MCV (80.0 - 94.0 FL) 91.1 MCH (27.0 - 31.0 PG) 31.0 MCHC (33.0 - 37.0 G/DL) 34.0 RDW (11.5 - 14.5 %) 13.3 Plt Count (130 - 400 /CUMM) 177 MPV (7.4 - 10.4 FL) 6.7 L Gran % (42.2 - 75.2 %) 83.4 H Lymphocytes % (20.5 - 51.1 %) 7.5 L Monocytes % (1.7 - 9.3 %) 8.4 Eosinophils % (0 - 5 %) 0.5 Basophils % (0.0 - 2.0 %) 0.2 Absolute Granulocytes (1.4 - 6.5 /CUMM) 6.4 Absolute Lymphocytes (1.2 - 3.4 /CUMM) 0.6 L Absolute Monocytes (0.10 - 0.60 /CUMM) 0.6 Absolute Eosinophils (0.0 - 0.7 /CUMM) 0 Absolute Basophils (0.0 - 0.2 /CUMM) 0 Recent Imaging Studies: EXAMINATION: CT ABDOMEN AND PELVIS WITHOUT CONTRAST CLINICAL INFORMATION: Right hip fracture. Low back pain. Rule out retroperitoneal bleed. Downward hemoglobin. COMPARISON: CT of the right lower extremity 12/06/2017. TECHNIQUE: Multidetector volumetric imaging was performed from the superior aspect of the liver through the pubic symphysis. Sagittal and coronal reformatted images were obtained on the technologist's workstation. DLP: 1489 mGy-cm FINDINGS: LUNG BASES: There is no consolidation at the lung bases. Bilateral atelectasis is noted. There are small bilateral pleural effusions. The mediastinal structures are shifted to the right and there is elevation of the left hemidiaphragm. LIVER, GALLBLADDER, AND BILIARY TREE: Multiple scattered foci of hypoattenuation are noted throughout the liver compatible with cysts and unchanged compared with prior. The gallbladder is contracted and not well evaluated. PANCREAS: Unremarkable. SPLEEN: Unremarkable. ADRENAL GLANDS: Unremarkable. KIDNEYS AND URETERS: There is no hydronephrosis, mass, or calculus. Bilateral perinephric stranding is noted, a nonspecific finding. BLADDER: Unremarkable. GASTROINTESTINAL TRACT: There is barium throughout the colon which results in some streak artifact. No bowel obstruction is seen. ABDOMINAL WALL: Small fat-containing periumbilical hernia. LYMPH NODES: No suspicious lymph nodes identified. VASCULAR: An infrarenal IVC filter is present. Atheromatous changes are present in the abdominal aorta and its branch vessels. PELVIC VISCERA: Unremarkable. OSSEOUS STRUCTURES: Redemonstration of a mildly displaced fracture through the right femoral neck. There is new intramuscular hematoma within the anterior compartment of the thigh and associated infiltration of the adjacent fascial spaces. The right iliacus muscle is also diffusely enlarged compatible with additional hematoma. There is mild stranding within the right-sided retroperitoneal compartment but no well-formed hematoma is seen. There is an intramedullary jaspreet and gamma nail in the left femur. Multilevel degenerative spondylotic changes are seen in the lumbar spine with multiple mild biconcave lumbar compression fractures noted. IMPRESSION: - Redemonstration of mildly displaced fracture of the right femoral neck. - New intramuscular hematoma involving the anterior thigh compartment and iliacus muscles with mild retroperitoneal stranding also seen without discrete retroperitoneal hematoma - No acute abnormality in the abdomen. This critical result was discussed with Dr. Vidal on 12/10/2017 11:38 AM, and it was ascertained that the content and urgency of the report was understood at the time of direct communication. 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, DVT on coumadin, htn, hld, pvd, bph, hypothyroidism, gerd, and depression, resolved recurrent persistant seizures (initially did not respond to Keppra and loaded with valproic acid and sub intubated and was on propofol-subsequently extubated with no further seizures), and slightly displaced right femoral neck fracture and associated thigh hematoma with resultant acute blood loss anemia awaiting transfusion prbcs in the setting of surgery anticipated tomorrow npo after midnight for OR sunday, hemiarthroplasty planned hold anticoagulation in setting of worsening anemia and CT evidence of thigh hematoma suggest venodynes - dvt ppx f/u labs post-transfusion primary management as per primary team to follow up micha
[2017-12-10 15:48] VITALS: BP 130/70
[2017-12-10 22:25] VITALS: BP 124/80
[2017-12-11 05:55] VITALS: BP 148/84
--- NOTE | 2017-12-11 07:26 | PN- Housestaff ---
Subjective Follow-up For: Right femur head fracture and dislcation, droping Hb and Hct, Follow up post seizure episode. Subjective: Patient seen and examined at bedside. He he complaining of pain all over his body. He is n.p.o. he is ready to go for surgery today. He denies chest pain, palpitation, fever, chills, abdominal pain, diarrhea, constipation, burning micturition. Review of Systems Constitutional: Reports: see HPI. Objective Last 24 Hrs of Vital Signs/I&O Vital Signs Date Time Temp Pulse Resp B/P B/P Pulse O2 O2 Flow FiO2 Mean Ox Delivery Rate 12/11 0555 99.1 84 22 148/84 96 Nasal 2.0L Cannula 12/11 0000 96 Nasal 2.0L Cannula 12/10 2225 98.4 90 20 124/80 93 Nasal Cannula 12/10 1548 99.6 85 20 130/70 93 12/10 0931 74 108/72 12/10 0931 74 108/72 12/10 0931 74 108/72 12/10 0800 98 Nasal 2.0L Cannula Intake & Output 12/11 0800 12/11 0000 12/10 1600 Intake Total 450 150 400 Output Total Balance 450 150 400 Intake, Blood 450 150 Product Intake, Oral 400 Number 3 Bowel Movements Patient 218 lb Weight Weight Bed scale Measurement Method Physical Exam General Appearance: Alert, Oriented X3, Cooperative Assessment/Plan Assessment: 67-year-old male (post seizure, post intubation), shifted from ICU with past medical history of seizures, 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 Problems list: -Right femur neck fracture with a hematoma and anemia -Resolved recurrent persistent seizure -Resolved fever completed 5 days antibiotic course -Resolved sinus tachycardia - Plan: -Acute H&H drop: Reduce Packed RBC arranged, blood transfusion done today yesterday. We will follow H&H. Yesterday HB was 6.9gm/dl. today Hb is a awaited. *Right femur neck fracture: -Orthopedic consult appreciated -Surgery is planned today 4pm. -Patient is n.p.o. from midnight. -We will follow orthopedic notes -Hemiarthroplasty will be done, anticoagulant on hold -Patient head elevation of the 30 to avoid aspiration -DVT prophylaxis -Full code Problem List: 1. Accidental fall 2. CVA 3. Hemiparesis 4. Hyperlipidemia 5. Weakness 6. DVT prophylaxis 7. Full code status 8. Seizure 9. Status epilepticus 10. Fracture, femur Pain Ratin Pain Location: whole body Pain Goal: Remain pain free Pain Plan: pain pathway Tomorrow's Labs & Rationales: cbc,BEP
[2017-12-11 10:45] LABS: ABSOLUTE BASOPHIL COUNT 0 /CUMM (0.0-0.2); ABSOLUTE EOSINOPHIL COUNT 0.1 /CUMM (0.0-0.7); ABSOLUTE GRANULOCYTE CT 6.6 /CUMM (1.4-6.5); ABSOLUTE MONOCYTE COUNT 0.7 /CUMM (0.10-0.60); BASOPHIL % 0.2 % (0.0-2.0); MEAN CORPUSCULAR VOLUME 92.1 FL (80.0-94.0); MEAN PLATELET VOLUME 6.7 FL (7.4-10.4); RBC DISTRIBUTION WIDTH 13.6 % (11.5-14.5)
[2017-12-11 10:56] LABS: ABSOLUTE LYMPH COUNT 0.6 /CUMM (1.2-3.4); EOSINOPHIL % 0.9 % (0-5); GRANULOCYTE % 82.7 % (42.2-75.2); MEAN CORPUSCULAR HGB 31.4 PG (27.0-31.0); MEAN CORPUSCULAR HGB CONC 34.1 G/DL (33.0-37.0); PLATELET COUNT 234 /CUMM (130-400)
[2017-12-11 11:00] LABS: RED BLOOD CELL CT 3.04 /CUMM (4.70-6.10)
--- NOTE | 2017-12-11 13:07 | PN- Att Addend ---
Attending Addendum Attending Brief Note Patient in bed. Usual complaints of pain and weakness. Vital signs are stable no fever. No major changes on physical examination. He had a CAT scan yesterday which shows an hematoma in the thigh which might explain his drop in H &H. Patient got transfusions. His hemoglobin this morning was 9.5 hematocrit 28. His last stool was negative for occult blood. Patient is n.p.o. and ready for orthopedic surgery today. Intake & Output 12/11 1600 12/11 0400 12/10 0400 12/09 0400 Intake Total 450 150 855.6 239.6 240 208 Output Total Balance 450 150 855.6 239.6 240 208 Intake, Blood 450 150 Product Intake, IV 305.6 119.6 208 Intake, Oral 550 120 240 Number 3 1 Bowel Movements Patient 218 lb 229 lb 217 lb Weight Weight Bed scale Bed scale Measurement Method Current Medications Sig/Miladis Start time Last Medication Dose Route Stop Time Status Admin Acetaminophen 0 .STK-MED ONE 12/11 1136 DC IV Acetaminophen 1,000 MG Q6P PRN 12/11 1100 AC 12/11 N/A 1 UNIT IV 1137 Acetaminophen 500 MG BID PRN 12/07 1415 AC 12/11 PO 0406 Amlodipine Besylate 2.5 MG DAILY 12/08 899 AC 12/10 PO 0931 Artificial Tears 2 GTT 4 TIMES/DAY 12/03 899 AC 12/11 OPH 0845 Aspirin Buffered 81 MG DAILY 12/08 899 AC 12/10 PO 0931 Atorvastatin Calcium 10 MG 1700 12/07 1700 AC 12/10 PO 1746 Divalproex Sodium 750 MG BID 12/08 899 AC 12/10 PO 205 Docusate Sodium 100 MG BID 12/07 2100 AC 12/10 PO 205 Erythromycin 1 EVERETT 4 TIMES/DAY 12/04 09 AC 12/11 OPH 0843 Escitalopram Oxalate 20 MG DAILY 12/08 899 AC 12/10 PO 0931 Famotidine 20 MG DAILY 12/08 899 AC 12/10 PO 0931 Lactulose 20 GM BID 12/03 2100 AC 12/10 PO 0932 Levetiracetam 1,000 MG Q12H 12/11 1016 AC 12/11 N/A 1 UNIT IV 1030 Levetiracetam 1,000 MG BID 12/08 09 DC 12/10 PO 205 Levothyroxine Sodium 0.125 MG DAILY AC 12/08 0700 AC 12/10 PO 0529 Linaclotide 290 MCG DAILY 12/02 1515 AC 12/10 PO 09 Lisinopril 5 MG DAILY 12/08 0900 AC 12/10 PO 09 Magnesium Hydroxide 30 ML AT BEDTIME PRN 12/03 1815 AC PO Melatonin 3 MG QPM 12/07 2100 AC 12/10 PO 2057 Ondansetron HCl 4 MG Q6P PRN 12/04 1100 AC 12/04 IV 1057 Senna 187 MG AT BEDTIME 12/02 2099 AC 12/08 PO 2127 Senna/Docusate Sodium 1 TAB BID 12/07 2099 DC 12/10 PO 32 Tamsulosin HCl 0.8 MG DAILY 12/08 09 AC 12/10 PO 0931 Laboratory Tests 12/11/17 0821: Anion Gap 4 L, Estimated GFR > 60, BUN/Creatinine Ratio 21.7, CBC w Diff NO MAN DIFF REQ, RBC 3.04 L, MCV 92.1, MCH 31.4 H, MCHC 34.1, RDW 13.6, MPV 6.7 L, Gran % 82.7 H, Lymphocytes % 7.8 L, Monocytes % 8.4, Eosinophils % 0.9, Basophils % 0.2, Absolute Granulocytes 6.6 H, Absolute Lymphocytes 0.6 L, Absolute Monocytes 0.7 H, Absolute Eosinophils 0.1, Absolute Basophils 0 12/10/17 0910: PT 14.0 H, INR 1.28 H, APTT 84 H 12/10/17 0650: Anion Gap 3 L, Estimated GFR > 60, BUN/Creatinine Ratio 17.1, APTT Cancelled, CBC w Diff NO MAN DIFF REQ, RBC 2.43 L, MCV 92.2, MCH 30.9, MCHC 33.5, RDW 13.9 , MPV 7.1 L, Gran % 83.2 H, Lymphocytes % 9.0 L, Monocytes % 7.1, Eosinophils % 0.6, Basophils % 0.1, Absolute Granulocytes 5.8, Absolute Lymphocytes 0.6 L, Absolute Monocytes 0.5, Absolute Eosinophils 0, Absolute Basophils 0 12/09/17 2255: APTT 44 H 12/09/17 1956: Anion Gap 4 L, Estimated GFR > 60, BUN/Creatinine Ratio 18.6, CBC w Diff NO MAN DIFF REQ, RBC 2.63 L, MCV 91.9, MCH 31.3 H, MCHC 34.1, RDW 13.6, MPV 7.1 L, Gran % 83.3 H, Lymphocytes % 8.8 L, Monocytes % 6.7, Eosinophils % 0.9, Basophils % 0.3, Absolute Granulocytes 6.2, Absolute Lymphocytes 0.7 L, Absolute Monocytes 0.5, Absolute Eosinophils 0.1, Absolute Basophils 0 12/09/17 1058: PT 14.8 H, INR 1.35 H, APTT 62 H 12/09/17 0837: Anion Gap 5, Estimated GFR > 60, BUN/Creatinine Ratio 16.3, PT Cancelled, INR Cancelled, APTT Cancelled, CBC w Diff NO MAN DIFF REQ, RBC 2.80 L, MCV 91.1, MCH 31.0, MCHC 34.0, RDW 13.3, MPV 6.7 L, Gran % 83.4 H, Lymphocytes % 7.5 L, Monocytes % 8.4, Eosinophils % 0.5, Basophils % 0.2, Absolute Granulocytes 6.4, Absolute Lymphocytes 0.6 L, Absolute Monocytes 0.6, Absolute Eosinophils 0, Absolute Basophils 0 12/09/17 0025: APTT 54 H Vital Signs Date Time Temp Pulse Resp B/P B/P Pulse O2 O2 Flow FiO2 Mean Ox Delivery Rate 12/11 0555 99.1 84 22 148/84 96 Nasal 2.0L Cannula 12/11 0000 96 Nasal 2.0L Cannula 12/10 2225 98.4 90 20 124/80 93 Nasal Cannula 12/10 1548 99.6 85 20 130/70 93
[2017-12-11 14:20] VITALS: BP 142/78
[2017-12-11 21:10] LABS: ABSOLUTE BASOPHIL COUNT 0 /CUMM (0.0-0.2); ABSOLUTE EOSINOPHIL COUNT 0 /CUMM (0.0-0.7); ABSOLUTE GRANULOCYTE CT 9.9 /CUMM (1.4-6.5); ABSOLUTE LYMPH COUNT 0.3 /CUMM (1.2-3.4); ABSOLUTE MONOCYTE COUNT 0.4 /CUMM (0.10-0.60); BASOPHIL % 0 % (0.0-2.0); EOSINOPHIL % 0.2 % (0-5); HEMATOCRIT 24.2 % (42-52); MEAN CORPUSCULAR HGB 30.5 PG (27.0-31.0); MEAN CORPUSCULAR HGB CONC 33.2 G/DL (33.0-37.0); MEAN CORPUSCULAR VOLUME 91.9 FL (80.0-94.0); MEAN PLATELET VOLUME 6.2 FL (7.4-10.4); PLATELET COUNT 241 /CUMM (130-400); RBC DISTRIBUTION WIDTH 13.9 % (11.5-14.5); RED BLOOD CELL CT 2.64 /CUMM (4.70-6.10); WHITE BLOOD CELL COUNT 10.6 /CUMM (4.8-10.8)
[2017-12-11 21:38] LABS: GRANULOCYTE % 93.6 % (42.2-75.2)
[2017-12-11 21:50] VITALS: BP 112/74
--- NOTE | 2017-12-11 21:54 | RADIOLOGY REPORT ---
EXAMINATION: XR HIP, RIGHT CLINICAL INFORMATION: Postop right hip. COMPARISON: CT scan of the abdomen and pelvis 12/10/2017. TECHNIQUE: An AP view of the right hip was obtained. FINDINGS: Since the prior study there has been a right total hip arthroplasty. The hardware appears in good anatomic position. No acute fractures are demonstrated. There are postoperative changes in the periarticular soft tissues. IMPRESSION: 1. Postoperative image demonstrating right total hip arthroplasty.
--- NOTE | 2017-12-11 22:33 | PN- Orthopedic ---
Subjective Subjective: Postop check: Patient still drowsy from anesthesia, no acute events since surgery. He is resting comfortably in his room, in bed Objective Vital Signs and I&Os Vital Signs Date Time Temp Pulse Resp B/P B/P Pulse O2 O2 Flow FiO2 Mean Ox Delivery Rate 12/11 1420 98.9 80 20 142/78 94 Nasal Cannula 12/11 0800 96 Nasal 2.0L Cannula 12/11 0555 99.1 84 22 148/84 96 Nasal 2.0L Cannula 12/11 0000 96 Nasal 2.0L Cannula Intake & Output 12/11 1600 12/11 0800 12/11 0000 12/10 1600 12/10 0800 12/10 0000 Intake Total 300 450 150 400 455.6 239.6 Output Total Balance 300 450 150 400 455.6 239.6 Intake, Blood 450 150 Product Intake, IV 300 305.6 119.6 Intake, Oral 0 400 150 120 Number 3 Bowel Movements Patient 218 lb Weight Weight Bed scale Measurement Method Physical Exam: well-developed well-nourished no apparent distress. HEENT: Atraumatic, extraocular motion intact Neck: Supple, no lymphadenopathy Respiratory: No respiratory distress Extremities: +1 pitting bilateral lower extremity edema RIGHT lower extremity hip dressing in place, Dressing clean dry and intact Abduction pillow in place Mild thigh swelling No signs of infection. No shortening or rotation Results Last 48 Hours of Labs: Laboratory Tests 12/11 12/11 2100 0821 Chemistry Sodium (137 - 145 mmol/L) 138 Potassium (3.5 - 5.1 mmol/L) 3.6 Chloride (98 - 107 mmol/L) 104 Carbon Dioxide (22 - 30 mmol/L) 30 Anion Gap (5 - 16) 4 L BUN (9 - 20 mg/dL) 13 Creatinine (0.7 - 1.2 mg/dL) 0.6 L Estimated GFR (>60 ml/min) > 60 BUN/Creatinine Ratio (7 - 25 %) 21.7 Hematology CBC w Diff NO MAN DIFF REQ NO MAN DIFF REQ WBC (4.8 - 10.8 /CUMM) 10.6 8.0 RBC (4.70 - 6.10 /CUMM) 2.64 L 3.04 L Hgb (14.0 - 18.0 G/DL) 8.0 L 9.5 L Hct (42 - 52 %) 24.2 L 28.0 L MCV (80.0 - 94.0 FL) 91.9 92.1 MCH (27.0 - 31.0 PG) 30.5 31.4 H MCHC (33.0 - 37.0 G/DL) 33.2 34.1 RDW (11.5 - 14.5 %) 13.9 13.6 Plt Count (130 - 400 /CUMM) 241 234 MPV (7.4 - 10.4 FL) 6.2 L 6.7 L Gran % (42.2 - 75.2 %) 93.6 H 82.7 H Lymphocytes % (20.5 - 51.1 %) 2.7 L 7.8 L Monocytes % (1.7 - 9.3 %) 3.5 8.4 Eosinophils % (0 - 5 %) 0.2 0.9 Basophils % (0.0 - 2.0 %) 0 0.2 Absolute Granulocytes (1.4 - 6.5 /CUMM) 9.9 H 6.6 H Absolute Lymphocytes (1.2 - 3.4 /CUMM) 0.3 L 0.6 L Absolute Monocytes (0.10 - 0.60 /CUMM) 0.4 0.7 H Absolute Eosinophils (0.0 - 0.7 /CUMM) 0 0.1 Absolute Basophils (0.0 - 0.2 /CUMM) 0 0 12/10 12/10 12/09 0910 0650 2255 Chemistry Sodium (137 - 145 mmol/L) 135 L Potassium (3.5 - 5.1 mmol/L) 3.8 Chloride (98 - 107 mmol/L) 100 Carbon Dioxide (22 - 30 mmol/L) 31 H Anion Gap (5 - 16) 3 L BUN (9 - 20 mg/dL) 12 Creatinine (0.7 - 1.2 mg/dL) 0.7 Estimated GFR (>60 ml/min) > 60 BUN/Creatinine Ratio (7 - 25 %) 17.1 Coagulation PT (9.4 - 12.5 SEC) 14.0 H INR (0.90 - 1.17) 1.28 H APTT (25 - 37 SEC) 84 H Cancelled 44 H Hematology CBC w Diff NO MAN DIFF REQ WBC (4.8 - 10.8 /CUMM) 6.9 RBC (4.70 - 6.10 /CUMM) 2.43 L Hgb (14.0 - 18.0 G/DL) 7.5 L Hct (42 - 52 %) 22.4 L MCV (80.0 - 94.0 FL) 92.2 MCH (27.0 - 31.0 PG) 30.9 MCHC (33.0 - 37.0 G/DL) 33.5 RDW (11.5 - 14.5 %) 13.9 Plt Count (130 - 400 /CUMM) 184 MPV (7.4 - 10.4 FL) 7.1 L Gran % (42.2 - 75.2 %) 83.2 H Lymphocytes % (20.5 - 51.1 %) 9.0 L Monocytes % (1.7 - 9.3 %) 7.1 Eosinophils % (0 - 5 %) 0.6 Basophils % (0.0 - 2.0 %) 0.1 Absolute Granulocytes (1.4 - 6.5 /CUMM) 5.8 Absolute Lymphocytes (1.2 - 3.4 /CUMM) 0.6 L Absolute Monocytes (0.10 - 0.60 /CUMM) 0.5 Absolute Eosinophils (0.0 - 0.7 /CUMM) 0 Absolute Basophils (0.0 - 0.2 /CUMM) 0 Assessment/Plan Assessment/Plan Postop day #0 status post right hip hemiarthroplasty secondary to right femoral neck fracture. Perioperative antibiotics. Pain medication as needed. Out of bed with assist only Physical therapy, weightbearing as tolerated IV fluids until tolerating adequate p.o. Regular diet Acute blood loss anemia, currently vital signs stable, hematocrit 24 postoperatively in the recovery room, transfusions per medicine Follow a.m. labs Full dose anticoagulation may start tomorrow Abduction pillow while in bed Dressing change postop day 2
[2017-12-12 00:08] VITALS: BP 134/86
[2017-12-12 04:19] VITALS: BP 128/88
[2017-12-12 07:52] VITALS: BP 130/80
--- NOTE | 2017-12-12 08:28 | PN- Housestaff ---
Subjective Follow-up For: Right femur head fracture, sudden drop Hb and Hct Subjective: Patient seen and examined at bedside. He is a little bit drowsy but cooperative and oriented time space and person. He is complaining of pain all over the body. He drinks some water this morning. he denies nausea, vomiting, shortness of breath, chest pain, palpitation, abdominal pain, constipation, diarrhea, burning micturition, fever, chills, seizure. Review of Systems Constitutional: Reports: see HPI. Objective Last 24 Hrs of Vital Signs/I&O Vital Signs Date Time Temp Pulse Resp B/P B/P Pulse O2 O2 Flow FiO2 Mean Ox Delivery Rate 12/12 1600 95 Nasal 2.0L Cannula 12/12 1600 98.4 80 18 104/60 95 Nasal 2.0L Cannula 12/12 1236 98.6 81 18 120/80 96 12/12 0945 69 130/80 12/12 0944 81 130/80 12/12 0944 69 130/80 12/12 0800 94 Nasal 2.0L Cannula 12/12 0752 97.8 69 18 130/80 96 12/12 0419 97.7 68 20 128/88 93 12/12 0008 97.5 70 18 134/86 98 12/12 0000 94 Nasal 2.0L Cannula 12/11 2150 98.0 72 16 112/74 98 Nasal 2.0L Cannula Intake & Output 12/12 1600 12/12 0800 12/12 0000 Intake Total 2375 720 75 Output Total 800 300 Balance 1575 420 75 Intake, IV 1575 600 75 Intake, Oral 800 120 Number 2 Bowel Movements Output, Urine 800 300 Physical Exam General Appearance: Alert, Oriented X3, Cooperative Assessment/Plan Assessment: 67-year-old male (post seizure, post intubation), shifted from ICU with past medical history of seizures, 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 Problems list: -Right femur neck fracture with a hematoma and anemia -Resolved recurrent persistent seizure -Resolved fever completed 5 days antibiotic course -Resolved sinus tachycardia - Plan: -Acute H&H drop: Reduce Packed RBC arranged, blood transfusion done today yesterday. We will follow H&H. Yesterday HB was 8gm/dl today HB is 7.7g/dl. Will transfuse one pint of blood today. will follow up on Hb Hct today. Patient complaining of chest pain but his EKG is negetive and tropT is negetive. *Right femur neck fracture: -He started oral intake, he drink water this morning, without nausea and vomiting. -Orthopedic consult appreciated -Surgery done yesterday. Notse followed. -Hemiarthroplasty done yesterday, anticoagulant started as he has multiple risk of throbosis like DVT, ischemic CVA recent Hx of surgery where endothelial damge is most common. discussed with my resident my concern about recent Hx of hematoma and and starting heparin he is agree with starting heparin. Resolved recurrent persistent seizure: -Seizures medication is continued, he having no more seizures. -will keep eyes on his HB and Hct and electrolytes. -Patient head will be kept low -DVT prophylaxis -Full code Problem List: 1. Accidental fall 2. Hemiparesis 3. Hyperlipidemia 4. Weakness 5. Full code status 6. Seizure 7. Right femoral fracture Pain Ratin Pain Location: Whole body Pain Goal: Remain pain free Pain Plan: Pain management pathway Tomorrow's Labs & Rationales: CBC, BEP
[2017-12-12 08:54] LABS: ABSOLUTE BASOPHIL COUNT 0 /CUMM (0.0-0.2); ABSOLUTE EOSINOPHIL COUNT 0 /CUMM (0.0-0.7); ABSOLUTE GRANULOCYTE CT 8.8 /CUMM (1.4-6.5); ABSOLUTE LYMPH COUNT 0.3 /CUMM (1.2-3.4); ABSOLUTE MONOCYTE COUNT 0.7 /CUMM (0.10-0.60); BASOPHIL % 0.1 % (0.0-2.0); EOSINOPHIL % 0 % (0-5); HEMATOCRIT 22.2 % (42-52); MEAN CORPUSCULAR HGB 31.6 PG (27.0-31.0); MEAN CORPUSCULAR HGB CONC 34.6 G/DL (33.0-37.0); MEAN CORPUSCULAR VOLUME 91.4 FL (80.0-94.0); MEAN PLATELET VOLUME 6.8 FL (7.4-10.4); PLATELET COUNT 210 /CUMM (130-400); RBC DISTRIBUTION WIDTH 13.9 % (11.5-14.5); RED BLOOD CELL CT 2.43 /CUMM (4.70-6.10); WHITE BLOOD CELL COUNT 9.8 /CUMM (4.8-10.8)
[2017-12-12 09:27] LABS: GRANULOCYTE % 89.3 % (42.2-75.2)
--- NOTE | 2017-12-12 09:41 | PN- Orthopedic ---
See Addendum Subjective Subjective: pt in bed with significant pain in hips and knees which he states he has had for months. Also, complaining of new chest pain with mild SOB on 2L O2. denies paresthesias. no nausea Objective Vital Signs and I&Os Vital Signs Date Time Temp Pulse Resp B/P B/P Pulse O2 O2 Flow FiO2 Mean Ox Delivery Rate 12/12 0752 97.8 69 18 130/80 96 12/12 0419 97.7 68 20 128/88 93 12/12 0008 97.5 70 18 134/86 98 12/12 0000 94 Nasal 2.0L Cannula 12/11 2150 98.0 72 16 112/74 98 Nasal 2.0L Cannula 12/11 1420 98.9 80 20 142/78 94 Nasal Cannula Intake & Output 12/12 1600 12/12 0800 12/12 0000 12/11 1600 12/11 0800 12/11 0000 Intake Total 720 75 300 450 150 Output Total 300 Balance 420 75 300 450 150 Intake, Blood 450 150 Product Intake, IV 600 75 300 Intake, Oral 120 0 Number 3 Bowel Movements Output, Urine 300 Physical Exam: gen- NAD but appears in pain resp- clear bilaterally with decreased effort cardiac- rrr abd- soft NT ext- right hip dressing clean and dry, thigh is soft, no errythema. no calf tenderness, 1+DP pulse Current Medications: Current Medications Sig/Miladis Start time Last Medication Dose Route Stop Time Status Admin Acetaminophen 0 .STK-MED ONE 12/11 1136 DC IV Acetaminophen 1,000 MG Q6P PRN 12/11 1100 AC 12/11 N/A 1 UNIT IV 1137 Acetaminophen 500 MG BID PRN 12/07 1415 AC 12/11 PO 0406 Amlodipine Besylate 2.5 MG DAILY 12/08 09 AC 12/10 PO 0931 Artificial Tears 2 GTT 4 TIMES/DAY 12/03 09 AC 12/11 OPH 2211 Aspirin Buffered 81 MG DAILY 12/08 09 AC 12/10 PO 0931 Atorvastatin Calcium 10 MG 1700 12/07 1700 AC 12/10 PO 1746 Cefazolin Sodium 2 GM IQ8 12/12 0000 DC 12/12 N/A 1 UNIT IV 12/12 0829 0853 Dextrose/Sodium 1,000 ML Q13H 12/11 1430 AC 12/11 Chloride IV 1454 Divalproex Sodium 750 MG BID 12/08 09 AC 12/11 PO 2210 Docusate Sodium 100 MG BID 12/07 2100 AC 12/11 PO 2210 Erythromycin 1 EVERETT 4 TIMES/DAY 12/04 09 AC 12/11 OPH 2211 Escitalopram Oxalate 20 MG DAILY 12/08 09 AC 12/10 PO 0931 Famotidine 20 MG DAILY 12/08 09 AC 12/10 PO 0931 Fentanyl Citrate 0 .STK-MED ONE 12/11 1645 DC .ROUTE Heparin Sodium 25,000 UNIT Q24H 12/12 0900 UNVr (Porcine) IV Sodium Chloride 500 ML Hydromorphone HCl 0 .STK-MED ONE 12/11 164 DC .ROUTE Lactulose 20 GM BID 12/03 2100 AC 12/10 PO 0932 Levetiracetam 1,000 MG Q12H 12/11 1016 AC 12/11 N/A 1 UNIT IV 2212 Levetiracetam 1,000 MG BID 12/08 09 DC 12/10 PO 205 Levothyroxine Sodium 0.125 MG DAILY AC 12/08 07 AC 12/12 PO 0549 Linaclotide 290 MCG DAILY 12/02 1515 AC 12/10 PO 0930 Lisinopril 5 MG DAILY 12/08 09 AC 12/10 PO 0931 Magnesium Hydroxide 30 ML AT BEDTIME PRN 12/03 181 AC PO Melatonin 3 MG QPM 12/07 2100 AC 12/11 PO 2210 Meperidine HCl 0 .STK-MED ONE 12/11 2136 DC .ROUTE Midazolam HCl 0 .STK-MED ONE 12/11 1644 DC .ROUTE Morphine Sulfate 4 MG Q4P PRN 12/11 221 AC 12/12 IV 0459 Ondansetron HCl 4 MG Q6P PRN 12/04 1100 AC 12/04 IV 1057 Oxycodone HCl 5 MG Q6PRN PRN 12/11 2214 AC PO Senna 187 MG AT BEDTIME 12/02 2099 AC 12/11 PO 2209 Tamsulosin HCl 0.8 MG DAILY 12/08 09 AC 12/10 PO 0931 Results Last 48 Hours of Labs: Laboratory Tests 12/12 12/12 0920 0759 Chemistry Sodium (137 - 145 mmol/L) 137 Potassium (3.5 - 5.1 mmol/L) 4.5 Chloride (98 - 107 mmol/L) 100 Carbon Dioxide (22 - 30 mmol/L) 35 H Anion Gap (5 - 16) 2 L BUN (9 - 20 mg/dL) 17 Creatinine (0.7 - 1.2 mg/dL) 0.7 Estimated GFR (>60 ml/min) > 60 BUN/Creatinine Ratio (7 - 25 %) 24.3 Troponin I Pending Hematology CBC w Diff NO MAN DIFF REQ WBC (4.8 - 10.8 /CUMM) 9.8 RBC (4.70 - 6.10 /CUMM) 2.43 L Hgb (14.0 - 18.0 G/DL) 7.7 L Hct (42 - 52 %) 22.2 L MCV (80.0 - 94.0 FL) 91.4 MCH (27.0 - 31.0 PG) 31.6 H MCHC (33.0 - 37.0 G/DL) 34.6 RDW (11.5 - 14.5 %) 13.9 Plt Count (130 - 400 /CUMM) 210 MPV (7.4 - 10.4 FL) 6.8 L Gran % (42.2 - 75.2 %) 89.3 H Lymphocytes % (20.5 - 51.1 %) 3.4 L Monocytes % (1.7 - 9.3 %) 7.2 Eosinophils % (0 - 5 %) 0 Basophils % (0.0 - 2.0 %) 0.1 Absolute Granulocytes (1.4 - 6.5 /CUMM) 8.8 H Absolute Lymphocytes (1.2 - 3.4 /CUMM) 0.3 L Absolute Monocytes (0.10 - 0.60 /CUMM) 0.7 H Absolute Eosinophils (0.0 - 0.7 /CUMM) 0 Absolute Basophils (0.0 - 0.2 /CUMM) 0 12/11 12/11 2100 0821 Chemistry Sodium (137 - 145 mmol/L) 138 Potassium (3.5 - 5.1 mmol/L) 3.6 Chloride (98 - 107 mmol/L) 104 Carbon Dioxide (22 - 30 mmol/L) 30 Anion Gap (5 - 16) 4 L BUN (9 - 20 mg/dL) 13 Creatinine (0.7 - 1.2 mg/dL) 0.6 L Estimated GFR (>60 ml/min) > 60 BUN/Creatinine Ratio (7 - 25 %) 21.7 Hematology CBC w Diff NO MAN DIFF REQ NO MAN DIFF REQ WBC (4.8 - 10.8 /CUMM) 10.6 8.0 RBC (4.70 - 6.10 /CUMM) 2.64 L 3.04 L Hgb (14.0 - 18.0 G/DL) 8.0 L 9.5 L Hct (42 - 52 %) 24.2 L 28.0 L MCV (80.0 - 94.0 FL) 91.9 92.1 MCH (27.0 - 31.0 PG) 30.5 31.4 H MCHC (33.0 - 37.0 G/DL) 33.2 34.1 RDW (11.5 - 14.5 %) 13.9 13.6 Plt Count (130 - 400 /CUMM) 241 234 MPV (7.4 - 10.4 FL) 6.2 L 6.7 L Gran % (42.2 - 75.2 %) 93.6 H 82.7 H Lymphocytes % (20.5 - 51.1 %) 2.7 L 7.8 L Monocytes % (1.7 - 9.3 %) 3.5 8.4 Eosinophils % (0 - 5 %) 0.2 0.9 Basophils % (0.0 - 2.0 %) 0 0.2 Absolute Granulocytes (1.4 - 6.5 /CUMM) 9.9 H 6.6 H Absolute Lymphocytes (1.2 - 3.4 /CUMM) 0.3 L 0.6 L Absolute Monocytes (0.10 - 0.60 /CUMM) 0.4 0.7 H Absolute Eosinophils (0.0 - 0.7 /CUMM) 0 0.1 Absolute Basophils (0.0 - 0.2 /CUMM) 0 0 Assessment/Plan Assessment/Plan Postop day #1 status post right hip hemiarthroplasty secondary to right femoral neck fracture. stat EKG and troponins Pain medication as needed. Out of bed with assist only Physical therapy, weightbearing as tolerated Regular diet Acute blood loss anemia, currently vital signs stable, hematocrit 22.2, transfusions per medicine Full dose anticoagulation per medicine Abduction pillow while in bed Dressing change postop day 2
--- NOTE | 2017-12-12 10:07 | PN- Att Addend ---
Attending Addendum Attending Brief Note Patient had his orthopedic surgery yesterday with no complications. This morning patient to me complained of some back pain and the pain in the hip. To the surgical PA complaint of some chest pain. He had an EKG that showed no acute changes. The troponins are pending. The patient's H&H dropped. Patient will be typed and crossmatch and give transfusions. Continue observation.. Intake & Output 12/12 1600 12/12 0400 12/11 1600 12/11 0400 12/10 1600 12/10 0400 Intake Total 720 75 750 150 855.6 239.6 Output Total 300 Balance 420 75 750 150 855.6 239.6 Intake, Blood 450 150 Product Intake, IV 600 75 300 305.6 119.6 Intake, Oral 120 0 550 120 Number 3 Bowel Movements Output, Urine 300 Patient 218 lb Weight Weight Bed scale Measurement Method Current Medications Sig/Miladis Start time Last Medication Dose Route Stop Time Status Admin Acetaminophen 0 .STK-MED ONE 12/11 1136 DC IV Acetaminophen 1,000 MG Q6P PRN 12/11 1100 AC 12/11 N/A 1 UNIT IV 1137 Acetaminophen 500 MG BID PRN 12/07 1415 AC 12/11 PO 0406 Amlodipine Besylate 2.5 MG DAILY 12/08 899 AC 12/12 PO 0944 Artificial Tears 2 GTT 4 TIMES/DAY 12/03 899 AC 12/12 OPH 0945 Aspirin Buffered 81 MG DAILY 12/08 09 AC 12/12 PO 0944 Atorvastatin Calcium 10 MG 1700 12/07 1700 AC 12/10 PO 1746 Cefazolin Sodium 2 GM IQ8 12/12 0000 DC 12/12 N/A 1 UNIT IV 12/12 0829 0853 Dextrose/Sodium 1,000 ML Q13H 12/11 1430 AC 12/11 Chloride IV 1454 Divalproex Sodium 750 MG BID 12/08 09 AC 12/12 PO 0944 Docusate Sodium 100 MG BID 12/07 2100 AC 12/12 PO 0944 Erythromycin 1 EVERETT 4 TIMES/DAY 12/04 09 AC 12/12 OPH 0945 Escitalopram Oxalate 20 MG DAILY 12/08 09 AC 12/12 PO 0944 Famotidine 20 MG DAILY 12/08 09 AC 12/12 PO 0944 Fentanyl Citrate 0 .STK-MED ONE 12/11 1645 DC .ROUTE Heparin Sodium 25,000 UNIT Q24H 12/12 09 UNVr (Porcine) IV Sodium Chloride 500 ML Hydromorphone HCl 0 .STK-MED ONE 12/11 1647 DC .ROUTE Lactulose 20 GM BID 12/03 2100 AC 12/12 PO 0943 Levetiracetam 1,000 MG Q12H 12/11 1016 AC 12/12 N/A 1 UNIT IV 0946 Levetiracetam 1,000 MG BID 12/08 09 DC 12/10 PO 205 Levothyroxine Sodium 0.125 MG DAILY AC 12/08 07 AC 12/12 PO 0549 Linaclotide 290 MCG DAILY 12/02 1515 AC 12/12 PO 0947 Lisinopril 5 MG DAILY 12/08 09 AC 12/12 PO 0945 Magnesium Hydroxide 30 ML AT BEDTIME PRN 12/03 1815 AC PO Melatonin 3 MG QPM 12/07 2100 AC 12/11 PO 2210 Meperidine HCl 0 .STK-MED ONE 12/11 2136 DC .ROUTE Midazolam HCl 0 .STK-MED ONE 12/11 1644 DC .ROUTE Morphine Sulfate 4 MG Q4P PRN 12/11 2215 AC 12/12 IV 0459 Ondansetron HCl 4 MG Q6P PRN 12/04 1100 AC 12/04 IV 1057 Oxycodone HCl 5 MG Q6PRN PRN 12/11 2214 AC PO Senna 187 MG AT BEDTIME 12/02 2100 AC 12/11 PO 2209 Tamsulosin HCl 0.8 MG DAILY 12/08 899 AC 12/12 PO 0944 Laboratory Tests 12/12/17 0920: Troponin I Pending 12/12/17 0759: Anion Gap 2 L, Estimated GFR > 60, BUN/Creatinine Ratio 24.3, CBC w Diff NO MAN DIFF REQ, RBC 2.43 L, MCV 91.4, MCH 31.6 H, MCHC 34.6, RDW 13.9, MPV 6.8 L, Gran % 89.3 H, Lymphocytes % 3.4 L, Monocytes % 7.2, Eosinophils % 0, Basophils % 0.1, Absolute Granulocytes 8.8 H, Absolute Lymphocytes 0.3 L, Absolute Monocytes 0.7 H, Absolute Eosinophils 0, Absolute Basophils 0 12/11/17 2100: CBC w Diff NO MAN DIFF REQ, RBC 2.64 L, MCV 91.9, MCH 30.5, MCHC 33.2, RDW 13.9 , MPV 6.2 L, Gran % 93.6 H, Lymphocytes % 2.7 L, Monocytes % 3.5, Eosinophils % 0.2, Basophils % 0, Absolute Granulocytes 9.9 H, Absolute Lymphocytes 0.3 L, Absolute Monocytes 0.4, Absolute Eosinophils 0, Absolute Basophils 0 12/11/17 0821: Anion Gap 4 L, Estimated GFR > 60, BUN/Creatinine Ratio 21.7, CBC w Diff NO MAN DIFF REQ, RBC 3.04 L, MCV 92.1, MCH 31.4 H, MCHC 34.1, RDW 13.6, MPV 6.7 L, Gran % 82.7 H, Lymphocytes % 7.8 L, Monocytes % 8.4, Eosinophils % 0.9, Basophils % 0.2, Absolute Granulocytes 6.6 H, Absolute Lymphocytes 0.6 L, Absolute Monocytes 0.7 H, Absolute Eosinophils 0.1, Absolute Basophils 0 12/10/17 0910: PT 14.0 H, INR 1.28 H, APTT 84 H 12/10/17 0650: Anion Gap 3 L, Estimated GFR > 60, BUN/Creatinine Ratio 17.1, APTT Cancelled, CBC w Diff NO SHARON DIFF REQ, RBC 2.43 L, MCV 92.2, MCH 30.9, MCHC 33.5, RDW 13.9 , MPV 7.1 L, Gran % 83.2 H, Lymphocytes % 9.0 L, Monocytes % 7.1, Eosinophils % 0.6, Basophils % 0.1, Absolute Granulocytes 5.8, Absolute Lymphocytes 0.6 L, Absolute Monocytes 0.5, Absolute Eosinophils 0, Absolute Basophils 0 12/09/17 2255: APTT 44 H 12/09/17 1956: Anion Gap 4 L, Estimated GFR > 60, BUN/Creatinine Ratio 18.6, CBC w Diff NO MAN DIFF REQ, RBC 2.63 L, MCV 91.9, MCH 31.3 H, MCHC 34.1, RDW 13.6, MPV 7.1 L, Gran % 83.3 H, Lymphocytes % 8.8 L, Monocytes % 6.7, Eosinophils % 0.9, Basophils % 0.3, Absolute Granulocytes 6.2, Absolute Lymphocytes 0.7 L, Absolute Monocytes 0.5, Absolute Eosinophils 0.1, Absolute Basophils 0 12/09/17 1058: PT 14.8 H, INR 1.35 H, APTT 62 H Microbiology 12/12 1999 URINE ROUT: Urine Culture - RES Microbiology 12/12 1999 URINE ROUT: Urine Culture - RES Vital Signs Date Time Temp Pulse Resp B/P B/P Pulse O2 O2 Flow FiO2 Mean Ox Delivery Rate 12/12 0945 69 130/80 12/12 0944 81 130/80 12/12 0944 69 130/80 12/12 0752 97.8 69 18 130/80 96 12/12 0419 97.7 68 20 128/88 93 12/12 0008 97.5 70 18 134/86 98 12/12 0000 94 Nasal 2.0L Cannula 12/11 2150 98.0 72 16 112/74 98 Nasal 2.0L Cannula 12/11 1420 98.9 80 20 142/78 94 Nasal Cannula
[2017-12-12 12:36] VITALS: BP 120/80
[2017-12-12 16:00] VITALS: BP 104/60
[2017-12-12 19:21] LABS: PTT 32 SEC (25-37)
[2017-12-12 22:07] VITALS: BP 116/64
--- NOTE | 2017-12-12 22:30 | Operative Report ---
Operative/Inv Procedure Report Surgery Date: 12/11/17 Operative/Procedure Note Note: Preoperative Holding Area Assessment/Preparation: The patient was evaluated in the preoperative holding area prior to surgery. No clinical changes or contraindications to surgical intervention were documented compared to the preoperative admitting medical service clearance and orthopaedic surgery consultation evaluations. For details regarding his significantly limited and partially debilitated baseline preinjury general functional and ambulatory status refer to those admission and clearance documents. The surgical plan and site were confirmed with the patient and family member (sister). The preoperative paperwork was finalized. Signed operative consent had been obtained directly from the patient the evening prior to surgery in the patient's hospital room with good understanding of, acceptance of and agreement with all reasonable treatment options, viable care alternatives , indications, goals, expectations, limitations, risks and benefits of the planned procedure and proposed use of prosthetic implants. Consent was briefly reviewed and confirmed by the patient in the preoperative holding area prior to the administration of any significant anesthetic or other sedating medications. The region of the intended surgical site was cleansed, prepped and marked per protocol. The primary surgeon, anesthesia care team members, and operating room staff verified the patient identity, surgical procedure, and operative site as well as other clinical details with the patient and family member (sister)in an initial documented preoperative confirmation (awake time out) prior to the administration of sedation or anesthesia. Surgical Procedure: The procedure was performed by Dr. Pardo who was present and served as the primary surgeon for all critical intraoperative and perioperative decisions and interventions. The assistance of a specialty trained surgical physician industrial hire sales assistant was critical and essential for the safe completion of all phases of the procedure, particularly for stabilization and optimized positioning of the right lower extremity during femoral neck and head resection, prosthetic implantation as well as for controlled reduction of the trial and final implant head into the acetabulum, maintenance of clear visualization in the operative field and for protected soft tissue retraction throughout the procedure. The procedure could not have been safely completed without this skilled assistance. Tiago Lopes P.A.-C assisted in this capacity throughout each critical phase of the procedure. Set-Up/Positioning/Exposure - The patient was brought to the operating room in stable condition and underwent uncomplicated sedation and injection of spinal anesthesia with placement of all appropriate monitors, lines and catheters without difficulty. Appropriate and effective spinal lower body anesthetic level was documented prior to final positioning and surgical incision. Administration of 3 grams of IV Ancef based on patient body mass was given for surgical prophylaxis and was completed at least 30 and less than 60 minutes prior to making an incision. With the patient in the immediate post-spinal supine position the fractured right hip was gently manipulated through a partial and intermediate degree flexion, internal and external, adduction and abduction rotation range of motion in all planes without report or manifestation of pain even near the extremes of range. The patient was positioned in the right lateral decubitus position using a peg board hip surgery positioning system afixed solidly to the standard operating table using straps in typical fashion for a right hemiarthroplasty to treat displaced femoral neck fracture. Care was taken to protect and stabilize the patient during transfer, avoid positions of nerve stretch, pad all pressure points, and support the head in the neutral coronal plane position on pillows. Once the patient was placed in the final preoperative lateral decubitus position his hip was again manipulated through a full flexion and extension range of motion without manifestation of pain sensation. These motion tests, along with the standard anesthesia service assessments and provocative tests confirmed successful spinal anesthesia adequate for the planned hip hemiarthroplasty procedure. No restriction of range of motion was evident that might complicate or limit surgical access, implantation, stability, motion, function or final outcome. The arms were flexed less than 90 degrees at the shoulders, flexed less than 90 degrees at the elbows and supported on a well- padded left-sided arm-board with a pillow between the arms and additional pillows and/or foam padding where indicated at or surrounding all prominences so that all pressure points were either fully padded or supported without any contact at all between pads. The patient's torso was lifted slightly and an axillary roll was placed in typical position using standard technique. The primary surgeon, anesthesia care team, and operating room staff again verified the patient identity, surgical procedure, and operative site as well as other clinical details in a final documented preoperative confirmation (final time out) prior to beginning the procedure. After sterile prep and drape using standard technique with DuraPrep and Ioban incise drape, a standard posterolateral incision was mapped and made extending in a curvilinear fashion from a posterosuperior point midway between the PSIS and the palpated caphalad prominence of the greater trochanter, curving over the junction of the posterior 1/3 and anterior 2/3 at the upper margin of the greater trochanteric prominence and continuing down the mid-sagittal lateral axis of the femoral shaft to the caudal extent of the lateral flare of the metadiaphyseal femoral region (estimated to correlate with the level of the lesser trochanter medially based on preoperative radiographs). In 90 degrees of hip flexion this mapped incision became nearly linear confirming optimal arc of the incision and surgical dissection for capsular, acetabular and femoral canal access, hip dislocation, trial and final hemiarthroplasty implantation and reduction. The incision was made using a #10 scalpel blade for the cutaneous dissection and Bovie electrocautery for both the subcutaneous dissection and hemostasis down to the fascial level. Hemostasis was achieved using Bovie electrocautery beginning with the subcuticular incision level and continuing throughout all phases and levels of the procedure as needed with settings appropriate to each progressive operative level. The fascia was divided using the Bovie electrocautery within the upper central portion of the superficial surgical site. Curved Jaeger scissors were then passed through that opening and used to sweep beneath the proximal and distal fascial layer to detect and detach any soft tissue or bursal adhesions. No dense tethering soft tissue or other significant adhesions were identified. The proximal and distal fascia was then opened in a curvilinear pattern matching that of the cutaneous incision using the curved Jaeger scissors in a sliding fashion. Cerebellar retractors were then placed for initial subfascial exposure. The bursa was identified and found to be quite thickened but was otherwise normal without hyperemia or other abnormality. The portion of the bursa overlying the posterior half of the greater trochanter was resected so as to optimize deeper dissection and access to the hip joint. The sciatic nerve and gluteal insertions were palpated and protected during deep dissection. While palpating the neural bundle the hip was ranged to 90 degrees of flexion without any suggestion of significant increase or abnormal degree of tension or "bowstringing" which might be associated with increased risk to the neural elements. The hip was then returned to the slightly flexed position and slightly internally rotated to place the short external rotators under mild tension so as to facilitate division at their insertion to the posterolateral margin of the greater trochanter using the Bovie. This dissection provided access to the joint capsule below. The anterior and posterior surgical site soft tissue flaps were protected with moist Lap pads and the Charnley retractor was placed with appropriately sized blades and in standard fashion so as to optimize retraction, exposure, visualization and access down to the hip joint capsular level while also protecting the superficial soft tissue structures. A narrow blunt [place] retractor was placed between the greater trochanter of the proximal femur and the joint capsule, advanced over the anterior acetabular edge and gently levered anteriorly to provide anterior retraction of the gluteal insertion and proximal femur to initially optimize acetabular exposure. A second narrow blunt [place] retractor was then placed at the posteroinferior margin of the acetabulum and gently levered posterior and inferior to retract the inferior gluteal insertion and posterior soft tissues again to optimally expose the acetabulum. Care was taken to avoid excessive posterior retraction so as to prevent direct pressure or longitudinal stretch of the traversing sciatic bundle. The hip joint capsule was then divided in a T-configuration using the Bovie electrocautery. Only minimal intraartiular hematoma was identified and evacuated confirming the suggestion on preoperative radiographs that this fracture is more consistent with a subacute or chronic fracture than a very recent acute one. The fracture which was immediately visible after intraarticular exposure and was confirmed to be an intracapsular, subcapital femoral neck fracture with partially scarred and smooted edges again suggestive of a subacute condition consistent with the preoperative radiologic findings. Resection Of Femoral Head/Canal And Acetabular Preparation - With the hip capsule open and the fracture line exposed, the hip was internally rotated to 90 degrees so as to clearly visualize the fractured subcapital surface of the femoral head and fractured proximal surface of the femoral neck. Both surfaces, particularly the proximal femoral neck surface were covered with fibrous tissue and rounded at the edges suggestive of a more subacute rather than acute age to the fracture as duscussed above. A corkscrew instrument was used to capture the femoral head fragment and remove it en bloc. The cancellous bone within the fractured surface as well as the cortical bone at the margins of the fracture were soft and osteopenic, consistent with radiologic assessments, but the subchondral bone of the head was not grossly incompetent or manually compressible and there were no lesions or other obvious osseous or chondral abnormalities to suggest any metabolic, neoplastic or other local or systemic underlying process predisposing the patient to fracture at this site. The femoral head diameter was measured using a "pass-through" template sizing board at 54 mm and the head was then sent to pathology for analysis. All intraarticular osseous fragments and abnormal soft tissues were removed from the acetabulum and hemostasis was achieved using Bovie electrocautery. Although there was some early fibrous tissue formation at the margins of the joint and in the foveal region, this did not appear to decrease the depth of the acetabulum or limit fit, fill or stability of a standard hemiarthroplasty head and so only standard limited debridement of soft tissue within the acetabulum was required. A femoral neck cutting template was advanced along the posterior wall of the proximal femur until the proximal end of the guide sat at the intended level of the neck cut (approximately one finger breadth above the palpated prominence of the lesser trochanter). Care was taken to insure that the cutting template was aligned coaxially with the proximal femur by centralizing the distal end of the guide within the width of the proximal femoral diaphysis. The cut angle was therefore made optimally for the design of the implant and this line was marked at a height of approximately 1 cm above the upper curve of the lesser trochanter using a Bovie electrocautery. This marking was then followed with an oscillating saw taking care to make the femoral neck cut equal in height both anteriorly and posteriorly. After femoral neck cut and prior to femoral canal preparation, a 54 mm femoral head sizing template was inserted into the acetabulum. This size documented good seating, circumferential capture at the acetabular rim and good suction effect upon removal. The hip was flexed to 90 degrees and adducted, longitudinal force was applied to the femur at the knee, a proximal femoral elevator "skid" was placed along the anterior wall of the proximal femur and this was gently levered upward so as to deliver the proximal femur into the surgical site for optimal preparation of the femoral canal. During broaching careful attention was given to the version angle of impaction so as to optimize final femoral component implant rotation without the need for cementation. Care was also taken during this femoral canal preparation phase to avoid the varus position. Broaching started with a zero size and progressed up to a size 4 until optimal fit and fill was achieved. Following serial removal and advancement of the final broach so as to allow for hoop relaxation while minimizing the risk of fracture, the size 4 broach was ultimately well seated down to the level of the templated neck cut with no suggestion of compromised proximal femoral bone or fixation. The final broach was sufficiently stable that, following templating, it could not be rotated or removed manually and required standard reverse longitudinal mallet removal thus confirming optimal circumferential cortical interference fit. Standard neck length and 54 mm diameter unipolar head trial components were applied to the post of the broach and this trial construct was gently reduced into concentric and anatomic position within the acetabulum taking care to avoid any entrapment or impingment by soft tissues. With the trial components in place and reduced, the hip joint was ranged and found to be quite stable. In neutral coronal plane alignment (adduction/ abduction) the right leg was approximately 1 cm longer than the left at the knee and heel. The hip was stable to longitudinal cranially directed impaction even in slight adduction. In this neutral hip position the joint was also stable to full straight-knee internal and external rotation of the leg with good endpoint and no subluxation of the head. Longitudinal distraction of the joint demonstrated good suction effect but no laxity and only a few millimeters of palpable distraction at the hip joint margin confirming proper head size and neck length for this patient's anatomy. There was no palpable instability of the trial components (particularly the trial stem within the proximal femur) with distractive force application. Extension of the hip to 10 degrees was unrestricted and without tension with firm but not sudden endpoint thereafter which was felt to be adequate in this case. The hip could achieve 110 degrees of flexion in the sagittal plane (neutral rotation) without any sign of instability or "kick-out" due to neck impingment even with the maximum of 20 degrees adduction and even then with additional longitudinal force toward the hip applied through the femur at the knee in several hip flexion angles. At 90 degrees of flexion and neutral adduction the external rotation range was approximately 45 degrees with good stability and on internal rotation the head did not begin to sublux until 60 degrees and did not dislocate until approximately 65 degrees. At 90 degrees of flexion and 10 degrees of adduction the hip remained stable without subluxation of the head until internal rotation reached 50 degrees and without dislocation until 55 degrees. Longer and shorter neck lengths were trialed however the hip appeared to sublux and dislocate at lower rotation angles with these trials in place and so the neutral neck length was selected as optimal for this patient. The trial hip prosthesis was gently dislocated using standard controlled maneuvers and all components were removed. As noted above, the press fit size 4 trial had excellent interference fit in the proximal canal with maintenance of optimal version angle and no evdence of loosening throughout the trialing process. Given these findings and the patient's complex medical status, a press fit implant was felt to optimize outcome while minimizing risk in this case. Care was taken to avoid rotation or loss of version angle during trial removal. The femoral canal and acetabulum were thoroughly irrigated with antibiotic irrigant using intramedullary and wide spray pulse lavage respectively. A large curette was used to remove any loose cancellous bone and to insure that there were no projections that might predispose the femoral component to a varus position. Only minimal debridement was required and no significant osteophyte or cortical obstruction was identified. The final components were requested, confirmed, opened and prepared on the back table. The [place] size 4 femoral press fit component with proximal ( intertrochanteric) region ingrowth surface was impacted into place taking care to maintain the intended and previously achieved version angle. Care was also taken to avoid any progression into the varus position during impaction. The top of the collarless stem (at the base of the neck post) was impacted until it was flush with the neck cut of the femur per implant design at which point it was found to have optimal circumferential interference fit identical to that documented for the trial as described above. There was no suggestion of loss of integrity of the circumferential bone at the proximal femoral metadiaphyseal, intertrochanteric or femoral neck regions. The femoral stem component was found to be rigidly fixed and stable to moderate pull-out and rotational force application with coplanar motion of the femur to this stress testing in all planes. The neck length adjustment sleeve was place in the central opening of the implant head and the central opening of this sleeve was then placed on the post of the femoral component. The femoral head and sleeve were then simultaneously and firmly impacted onto the femoral component post so as to form "cold welds" at the dual Avinash tapers. Care was taken to protect the femoral head surface from focal defects throughout this process. Gentle distraction was applied to the head component and no loosening or motion was detected confirming the cold weld to the femoral component. The final unipolar hemiarthroplasty was then gently reduced into concentric and anatomic position within the acetabulum taking care to avoid any entrapment or impingment by soft tissues. With the final components in place and reduced, the hip joint was ranged and found to be extremely stable with identical leg length, stability, longitudinal impaction and distraction, range of motion excursion, end-point, subluxation and dislocation values and descriptions as were documented with the same size trial components (see details above). There was no suggestion of neck impingment or "kick-out" in any plane of motion. The surgical site was thoroughly irrigated with antibiotic irrigation using pulse lavage prior to closure. Closure/Recovery - The rectractors were removed and the rest of the surgical site was again thoroughly irrigated with pulse lavage and bulb Bacitracin irrigation. Final hemostasis was carefully achieved prior to closure. Initial counts were correct prior to closure. The T-configuration hip joint capsule opening was closed using #0 Vicryl simple interrupted and [id number] closure technique. Where possible the capsulaewas reattached to the posteromedial cuff of soft tissue in the femoral neck region so as to optimize secondary soft tissue envelope stability. The proximal split of the gluteal musculature layer was loosely reapproximated in a [id number] closure using #1 Vicryl interrupted, simple suture technique. The short external rotators were reapproximated to the posterolateral cuff of the proximal lateral fascia and to the greater trochanteric posterior margin where possible in a [id number] closure using #0 Vicryl with a simple interrupted suture technique. The tensor fascia was then reapproximated in a [id number] closure using #0 Vicryl interrupted and figure- of-eight suture technique. The suprafacial tissues were finally irrigated using pulse lavage prior to superficial closure. The deep suprafascial [id number] closure was performed with #2-0 Vicryl inverted, interrupted, simple suture technique. The superficial subcutaneous layer was closed with #3-0 undyed Vicryl inverted, interrupted, simple sutures. The skin was closed using cassy with the edges everted. A standard, sterile Xeroform dressing was placed, covered with folded fluff 6x6 gauze and ABD pads held in place using foam tape with good surgical site coverage. All final surgical counts were correct prior to removing the drapes. A prefabricated triangular foam abduction pillow was placed, positioned optimally so as to immobilize both legs in slight abduction and held in position without circumferential pressure using the incorporated Velcro leg straps prior to transferring the patient. The lateral positioning posts were removed and the patient was carefully returned to the supine position on the operating table using careful log-roll technique. The dorsalis pedis and posterior tibial pulses of both lower extremities were checked and found to be unchanged from preoperative evaluations prior to transferring the patient from the operating table. He was then transferred to the hospital bed in the supine position taking care to stabilize the pelvis, operative hip and both legs during transfer. Recovery Room Assessment: The patient was transported to the recovery room in stable condition where gross neurological examination of both lower extremities was still limited by persistence of spinal anesthetic and sedation. Further evaluation will be performed layer this evening or in the morning depending on when he fully recovers from anesthesia and spinal block. The patient will follow the usual postoperative protocols for hemiarthroplasty performed for displaced femoral neck fracture with some adjustments and accommodations made to the standard postoperative rehabilitation protocols because of the patient's multiple and severe medical conditions as well as his limited baseline preinjury functional level. This postoperative care plan will include early hospital postoperative extremity, transfer and ambulatory mobilization followed by inpatient rehabilitation program with full weight bearing as tolerated and standard hip arthroplasty precautions including use of a hip abduction pillow except for therapy, mobilization and hygiene. He may require more comprehensive monitoring and prolonged hospitalization compared to other patient's following similar surgical intervention because of his significant medical comorbidities requiring specialized postoperative care as recommended by the primary admitting medical team.
[2017-12-13 02:34] LABS: PTT 59 SEC (25-37)
[2017-12-13 06:09] VITALS: BP 124/68
--- NOTE | 2017-12-13 07:53 | PN- Orthopedic ---
See Addendum Subjective Subjective: Patient seen and examined, awake alert, responsive although mildly lethargic. Complains of appropriate pain in the right hip Objective Vital Signs and I&Os Vital Signs Date Time Temp Pulse Resp B/P B/P Pulse O2 O2 Flow FiO2 Mean Ox Delivery Rate 12/13 0609 98.3 89 22 124/68 92 Nasal 2.0L Cannula 12/13 0000 92 Nasal 2.0L Cannula 12/12 2207 97.8 87 20 116/64 92 Nasal Cannula 12/12 1600 95 Nasal 2.0L Cannula 12/12 1600 98.4 80 18 104/60 95 Nasal 2.0L Cannula 12/12 1236 98.6 81 18 120/80 96 12/12 0945 69 130/80 12/12 0944 81 130/80 12/12 0944 69 130/80 12/12 0800 94 Nasal 2.0L Cannula 12/12 0752 97.8 69 18 130/80 96 Intake & Output 12/13 0800 12/13 0000 12/12 1600 12/12 0800 12/12 0000 12/11 1600 Intake Total 1260 1510 2375 720 75 300 Output Total 200 150 800 300 Balance 1060 1360 1575 420 75 300 Intake, Blood 350 Product Intake, IV 866 673 5429 600 75 300 Intake, Oral 360 400 800 120 0 Number 2 Bowel Movements Output, Urine 200 150 800 300 Patient 208 lb Weight Weight Bed scale Measurement Method Physical Exam: Well-developed well-nourished no apparent distress. HEENT: Atraumatic, extraocular motion intact Neck: Supple, no lymphadenopathy Respiratory: No respiratory distress Extremities: No edema RIGHT lower extremity hip dressing in place, Dressing clean dry and intact with minimal bloody staining. Dressing changed Incision without erythema Moderate thigh swelling No signs of infection. No shortening or rotation, abduction pillow in place Hip range of motion is significantly limited Neurovascularly intact distally 1+ pitting edema bilateral Bilateral calves are supple, nontender. Neuro: Arousable and alert, able to follow commands Results Last 48 Hours of Labs: Laboratory Tests 12/13 12/12 12/12 12/12 0206 1805 0920 0909 Chemistry Troponin I (<0.11 ng/ml) < 0.01 Cancelled Coagulation APTT (25 - 37 SEC) 59 H 32 12/12 12/11 0759 2100 Chemistry Sodium (137 - 145 mmol/L) 137 Potassium (3.5 - 5.1 mmol/L) 4.5 Chloride (98 - 107 mmol/L) 100 Carbon Dioxide (22 - 30 mmol/L) 35 H Anion Gap (5 - 16) 2 L BUN (9 - 20 mg/dL) 17 Creatinine (0.7 - 1.2 mg/dL) 0.7 Estimated GFR (>60 ml/min) > 60 BUN/Creatinine Ratio (7 - 25 %) 24.3 Hematology CBC w Diff NO MAN DIFF REQ NO MAN DIFF REQ WBC (4.8 - 10.8 /CUMM) 9.8 10.6 RBC (4.70 - 6.10 /CUMM) 2.43 L 2.64 L Hgb (14.0 - 18.0 G/DL) 7.7 L 8.0 L Hct (42 - 52 %) 22.2 L 24.2 L MCV (80.0 - 94.0 FL) 91.4 91.9 MCH (27.0 - 31.0 PG) 31.6 H 30.5 MCHC (33.0 - 37.0 G/DL) 34.6 33.2 RDW (11.5 - 14.5 %) 13.9 13.9 Plt Count (130 - 400 /CUMM) 210 241 MPV (7.4 - 10.4 FL) 6.8 L 6.2 L Gran % (42.2 - 75.2 %) 89.3 H 93.6 H Lymphocytes % (20.5 - 51.1 %) 3.4 L 2.7 L Monocytes % (1.7 - 9.3 %) 7.2 3.5 Eosinophils % (0 - 5 %) 0 0.2 Basophils % (0.0 - 2.0 %) 0.1 0 Absolute Granulocytes (1.4 - 6.5 /CUMM) 8.8 H 9.9 H Absolute Lymphocytes (1.2 - 3.4 /CUMM) 0.3 L 0.3 L Absolute Monocytes (0.10 - 0.60 /CUMM) 0.7 H 0.4 Absolute Eosinophils (0.0 - 0.7 /CUMM) 0 0 Absolute Basophils (0.0 - 0.2 /CUMM) 0 0 08/21 0821 Chemistry Sodium (137 - 145 mmol/L) 138 Potassium (3.5 - 5.1 mmol/L) 3.6 Chloride (98 - 107 mmol/L) 104 Carbon Dioxide (22 - 30 mmol/L) 30 Anion Gap (5 - 16) 4 L BUN (9 - 20 mg/dL) 13 Creatinine (0.7 - 1.2 mg/dL) 0.6 L Estimated GFR (>60 ml/min) > 60 BUN/Creatinine Ratio (7 - 25 %) 21.7 Hematology CBC w Diff NO MAN DIFF REQ WBC (4.8 - 10.8 /CUMM) 8.0 RBC (4.70 - 6.10 /CUMM) 3.04 L Hgb (14.0 - 18.0 G/DL) 9.5 L Hct (42 - 52 %) 28.0 L MCV (80.0 - 94.0 FL) 92.1 MCH (27.0 - 31.0 PG) 31.4 H MCHC (33.0 - 37.0 G/DL) 34.1 RDW (11.5 - 14.5 %) 13.6 Plt Count (130 - 400 /CUMM) 234 MPV (7.4 - 10.4 FL) 6.7 L Gran % (42.2 - 75.2 %) 82.7 H Lymphocytes % (20.5 - 51.1 %) 7.8 L Monocytes % (1.7 - 9.3 %) 8.4 Eosinophils % (0 - 5 %) 0.9 Basophils % (0.0 - 2.0 %) 0.2 Absolute Granulocytes (1.4 - 6.5 /CUMM) 6.6 H Absolute Lymphocytes (1.2 - 3.4 /CUMM) 0.6 L Absolute Monocytes (0.10 - 0.60 /CUMM) 0.7 H Absolute Eosinophils (0.0 - 0.7 /CUMM) 0.1 Absolute Basophils (0.0 - 0.2 /CUMM) 0 Assessment/Plan Assessment/Plan Postop day #2 status post right hip hemiarthroplasty secondary to right femoral neck fracture Orthopedically stable, will need to continue abduction pillow while in bed physical therapy, out of bed with assist Acute blood loss anemia, medicine following and transfusing, labs pending this morning Currently on heparin drip, okay to start oral anticoagulants from an orthopedic standpoint Weightbearing as tolerated, total hip precautions Daily dressing changes with dry sterile dressing Follow-up 2 weeks postop with Edy Pardo MD, please call with questions Core Measures Venous Thromboembolism VTE Risk Factors Age>40 No Mechanical VTE Prophylaxis d/t N/A MechProphylax Ordered No VTE Pharm Prophylaxis d/t NA PharmProphylax ordered Comment: on warfarin, dose as per inr
[2017-12-13 09:16] LABS: PT 14.6 SEC (9.4-12.5)
[2017-12-13 09:36] LABS: ABSOLUTE BASOPHIL COUNT 0 /CUMM (0.0-0.2); ABSOLUTE EOSINOPHIL COUNT 0 /CUMM (0.0-0.7); ABSOLUTE GRANULOCYTE CT 8.2 /CUMM (1.4-6.5); ABSOLUTE LYMPH COUNT 0.6 /CUMM (1.2-3.4); ABSOLUTE MONOCYTE COUNT 1.1 /CUMM (0.10-0.60); BASOPHIL % 0.2 % (0.0-2.0); EOSINOPHIL % 0.4 % (0-5); GRANULOCYTE % 81.8 % (42.2-75.2); HEMATOCRIT 22.3 % (42-52); MEAN CORPUSCULAR HGB 31.2 PG (27.0-31.0); MEAN CORPUSCULAR HGB CONC 34.2 G/DL (33.0-37.0); MEAN CORPUSCULAR VOLUME 91.3 FL (80.0-94.0); MEAN PLATELET VOLUME 6.7 FL (7.4-10.4); PLATELET COUNT 213 /CUMM (130-400); RBC DISTRIBUTION WIDTH 14.1 % (11.5-14.5); RED BLOOD CELL CT 2.44 /CUMM (4.70-6.10)
[2017-12-13 09:52] LABS: PTT 58 SEC (25-37)
--- NOTE | 2017-12-13 10:27 | PN- Att Addend ---
Attending Addendum Attending Brief Note Patient in bed. Usual pains. His urine output is not so great. Given a little IV fluids. His vital signs are stable no fever. No major changes on physical examination. His H&H is still low will transfuse again today. Also discussed with house staff regarding the anticoagulation. Intake & Output 12/13 1600 12/13 0400 12/12 1600 12/12 0400 12/11 1600 12/11 0400 Intake Total 1260 1510 3095 75 750 150 Output Total 771 614 6399 Balance 1060 1360 1995 75 750 150 Intake, Blood 350 450 150 Product Intake, IV 762 707 5887 75 300 Intake, Oral 360 400 920 0 Number 2 3 Bowel Movements Output, Urine 014 638 8530 Patient 208 lb 231 lb Weight Weight Bed scale Measurement Method Current Medications Sig/Miladis Start time Last Medication Dose Route Stop Time Status Admin Acetaminophen 1,000 MG Q6P PRN 12/11 1100 AC 12/11 N/A 1 UNIT IV 1137 Acetaminophen 500 MG BID PRN 12/07 1415 AC 12/11 PO 0406 Amlodipine Besylate 2.5 MG DAILY 12/08 899 AC 12/13 PO 0936 Artificial Tears 2 GTT 4 TIMES/DAY 12/03 09 AC 12/13 OPH 0938 Aspirin Buffered 81 MG DAILY 12/08 09 AC 12/13 PO 0937 Atorvastatin Calcium 10 MG 1700 12/07 1700 AC 12/12 PO 1600 Dextrose/Sodium 1,000 ML Q13H 12/11 1430 AC 12/13 Chloride IV 0523 Divalproex Sodium 750 MG BID 12/08 09 AC 12/13 PO 0937 Docusate Sodium 100 MG BID 12/07 2100 AC 12/13 PO 0937 Erythromycin 1 EVERETT 4 TIMES/DAY 12/04 09 AC 12/13 OPH 0938 Escitalopram Oxalate 20 MG DAILY 12/08 09 AC 12/13 PO 0937 Famotidine 20 MG DAILY 12/08 09 AC 12/13 PO 0937 Heparin Sodium 4,192 UNIT ONCE ONE 12/13 0300 DC 12/13 (Porcine) IV 12/13 030 0256 Heparin Sodium 7,400 UNIT ONCE ONE 12/12 2014 DC 12/12 (Porcine) IV 12/12 Heparin Sodium 0 .STK-MED ONE 12/12 2008 DC (Porcine) .ROUTE Heparin Sodium 25,000 UNIT Q24H 08/899 AC 12/13 (Porcine) IV 0257 Sodium Chloride 500 ML Lactulose 20 GM BID 12/03 2100 AC 12/13 PO 0938 Levetiracetam 1,000 MG Q12H 12/11 1016 AC 12/13 N/A 1 UNIT IV 0938 Levothyroxine Sodium 0.125 MG DAILY AC 12/08 0700 AC 12/13 PO 0523 Linaclotide 290 MCG DAILY 12/02 1515 AC 12/13 PO 0937 Lisinopril 5 MG DAILY 12/08 09 AC 12/13 PO 0937 Magnesium Hydroxide 30 ML AT BEDTIME PRN 12/03 1815 AC PO Melatonin 3 MG QPM 12/07 2100 AC 12/12 PO 2010 Morphine Sulfate 4 MG Q4P PRN 12/11 221 AC 12/12 IV 2247 Ondansetron HCl 4 MG Q6P PRN 12/04 1100 AC 12/04 IV 1057 Oxycodone HCl 5 MG Q6PRN PRN 12/11 221 AC 12/13 PO 0523 Senna 187 MG AT BEDTIME 12/02 2099 AC 12/12 PO 2010 Tamsulosin HCl 0.8 MG DAILY 12/08 09 AC 12/13 PO 0937 Laboratory Tests 12/13/17 0910: APTT 58 H 12/13/17 0815: Anion Gap 1 L, Estimated GFR > 60, BUN/Creatinine Ratio 22.0, PT 14.6 H, INR 1.34 H, CBC w Diff NO MAN DIFF REQ, RBC 2.44 L, MCV 91.3, MCH 31.2 H, MCHC 34.2, RDW 14.1, MPV 6.7 L, Gran % 81.8 H, Lymphocytes % 6.2 L, Monocytes % 11.4 H, Eosinophils % 0.4, Basophils % 0.2, Absolute Granulocytes 8.2 H, Absolute Lymphocytes 0.6 L, Absolute Monocytes 1.1 H, Absolute Eosinophils 0, Absolute Basophils 0 12/13/17 0206: APTT 59 H 12/12/17 1805: APTT 32 12/12/17 0920: Troponin I < 0.01 12/12/17 0909: Troponin I Cancelled 12/12/17 0759: Anion Gap 2 L, Estimated GFR > 60, BUN/Creatinine Ratio 24.3, CBC w Diff NO MAN DIFF REQ, RBC 2.43 L, MCV 91.4, MCH 31.6 H, MCHC 34.6, RDW 13.9, MPV 6.8 L, Gran % 89.3 H, Lymphocytes % 3.4 L, Monocytes % 7.2, Eosinophils % 0, Basophils % 0.1, Absolute Granulocytes 8.8 H, Absolute Lymphocytes 0.3 L, Absolute Monocytes 0.7 H, Absolute Eosinophils 0, Absolute Basophils 0 12/11/17 2100: CBC w Diff NO MAN DIFF REQ, RBC 2.64 L, MCV 91.9, MCH 30.5, MCHC 33.2, RDW 13.9 , MPV 6.2 L, Gran % 93.6 H, Lymphocytes % 2.7 L, Monocytes % 3.5, Eosinophils % 0.2, Basophils % 0, Absolute Granulocytes 9.9 H, Absolute Lymphocytes 0.3 L, Absolute Monocytes 0.4, Absolute Eosinophils 0, Absolute Basophils 0 12/11/17 0821: Anion Gap 4 L, Estimated GFR > 60, BUN/Creatinine Ratio 21.7, CBC w Diff NO MAN DIFF REQ, RBC 3.04 L, MCV 92.1, MCH 31.4 H, MCHC 34.1, RDW 13.6, MPV 6.7 L, Gran % 82.7 H, Lymphocytes % 7.8 L, Monocytes % 8.4, Eosinophils % 0.9, Basophils % 0.2, Absolute Granulocytes 6.6 H, Absolute Lymphocytes 0.6 L, Absolute Monocytes 0.7 H, Absolute Eosinophils 0.1, Absolute Basophils 0 Microbiology 12/12 1999 URINE ROUT: Urine Culture - RES Microbiology 12/12 1999 URINE ROUT: Urine Culture - RES Vital Signs Date Time Temp Pulse Resp B/P B/P Pulse O2 O2 Flow FiO2 Mean Ox Delivery Rate 12/13 0937 89 124/12/13 0937 81 124/12/13 0936 89 124/12/13 0609 98.3 89 22 124/68 92 Nasal 2.0L Cannula 12/13 0000 92 Nasal 2.0L Cannula 12/12 2207 97.8 87 20 116/64 92 Nasal Cannula 12/12 1600 95 Nasal 2.0L Cannula 12/12 1600 98.4 80 18 104/60 95 Nasal 2.0L Cannula 12/12 1236 98.6 81 18 120/80 96
--- NOTE | 2017-12-13 13:34 | PN- Housestaff ---
Subjective Follow-up For: Acute symptomatic blood loss anemia,right femur head fracture Subjective: Patient seen and examined at bedside he is a little bit lethargic and complaining pain in all joints. The nurse told me that he having a decrease in urine output of 250 mL since last night. There is 850 mm fluid intake. His weight is increased 7 pounds. He denies chest pain, palpitation, abdominal pain, diarrhea, constipation, burning micturition, fever, chills. Review of Systems Constitutional: Reports: see HPI. Objective Last 24 Hrs of Vital Signs/I&O Vital Signs Date Time Temp Pulse Resp B/P B/P Pulse O2 O2 Flow FiO2 Mean Ox Delivery Rate 12/13 0937 89 12/13 0937 81 12/13 0936 89 12/13 0609 98.3 89 22 124 92 Nasal 2.0L Cannula 12/13 0000 92 Nasal 2.0L Cannula 12/12 2207 97.8 87 20 116/64 92 Nasal Cannula 12/12 1600 95 Nasal 2.0L Cannula 12/12 1600 98.4 80 18 104/60 95 Nasal 2.0L Cannula Intake & Output 12/13 1600 12/13 0800 12/13 0000 Intake Total 1260 1510 Output Total 200 150 Balance 1060 1360 Intake, Blood 350 Product Intake, IV 900 760 Intake, Oral 360 400 Output, Urine 200 150 Patient 237 lb 208 lb Weight Weight Bed scale Bed scale Measurement Method Physical Exam General Appearance: Alert, Oriented X3, Cooperative, Mild Distress Assessment/Plan Assessment: 67-year-old male (post seizure, post intubation), shifted from ICU with past medical history of seizures, 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 Problems list: -Right femur neck fracture with a hematoma and anemia -Resolved recurrent persistent seizure -Resolved fever completed 5 days antibiotic course -Resolved sinus tachycardia - Plan: -Acute H&H drop: Reduce Packed RBC arranged, blood transfusion done today yesterday. We will follow H&H. Yesterday HB was 7.7gm/dl today HB is 7.6g/dl. Will transfuse one pint of blood today. will follow up on Hb Hct today. *Right femur neck fracture: Postop day 2, patient is stablE from orthopedic point of view. -Orthopedic consult appreciated -Blood thinner changed from heparin to Lovenox for DVT, ischemic CVA recent Hx of surgery where endothelial damge is most common. discussed with my attending Dr. Spencer my concern about recent Hx of hematoma and and starting lovenox he is agree with starting Lovenox. Resolved recurrent persistent seizure: -Seizures medication is continued, he having no more seizures. -will keep eyes on his HB and Hct and electrolytes. -Patient head will be kept low -DVT prophylaxis -Full code Problem List: 1. Hemiparesis 2. CVA 3. Weakness 4. Full code status 5. Status epilepticus 6. History of stroke 7. Right femoral fracture Pain Ratin Pain Location: Whole body Pain Goal: Remain pain free Pain Plan: Pain management pathway Tomorrow's Labs & Rationales: BEP,CBC
[2017-12-13 15:07] VITALS: BP 98/66
[2017-12-13 22:58] VITALS: BP 108/70
[2017-12-14 06:36] VITALS: BP 110/80
--- NOTE | 2017-12-14 07:29 | PN- Housestaff ---
Subjective Follow-up For: Right femur head fracture, Symptomatic anemia due to acute blood loss Subjective: Patient seen and examined at bedside, is complaining pain all over the body. He denies chest pain, shortness of breath, abdominal pain, diarrhea, constipation, burning micturtion,fever, chills. Review of Systems Constitutional: Reports: see HPI. Objective Last 24 Hrs of Vital Signs/I&O Vital Signs Date Time Temp Pulse Resp B/P B/P Pulse O2 O2 Flow FiO2 Mean Ox Delivery Rate 12/14 1420 98.2 81 18 140/70 90 Nasal 2.0L Cannula 12/14 1233 Nasal 2.0L Cannula 12/14 0910 84 130/72 12/14 0909 84 130/72 12/14 0909 84 130/72 12/14 0800 Nasal 2.0L Cannula 12/14 0636 97.7 85 18 110/80 93 Room Air 12/14 0144 97.9 12/14 0000 Nasal 2.0L Cannula 12/13 2258 100.8 96 20 108/70 95 Nasal 2.0L Cannula 12/13 2242 100.8 Intake & Output 12/14 1600 12/14 0800 12/14 0000 Intake Total 240 260 Output Total 198 763 7591 Balance -410 -250 -990 Intake, IV 260 Intake, Oral 240 Number 1 1 Bowel Movements Output, Urine 955 303 2806 Physical Exam General Appearance: Alert, Oriented X3, Cooperative, No Acute Distress Assessment/Plan Assessment: 67-year-old male (post seizure, post intubation), shifted from ICU with past medical history of seizures, 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 Problems list: -Right femur neck fracture with a hematoma and anemia -Resolved recurrent persistent seizure -Resolved fever completed 5 days antibiotic course -Resolved sinus tachycardia - Plan: -Acute H&H drop: Reduce Packed RBC arranged, blood transfusion done today yesterday. We will follow H&H. Yesterday HB was 7.6gm/dl today HB is 7.9g/dl. will follow up on Hb Hct today. Inputoutput monitoring Vitals monitors *Right femur neck fracture: Postop day 2, patient is stablE from orthopedic point of view. -Orthopedic consult appreciated -Blood thinner changed from heparin to Lovenox for DVT, ischemic CVA recent Hx of surgery where endothelial damge is most common. discussed with my attending Dr. Spencer my concern about recent Hx of hematoma and and starting lovenox he is agree with starting Lovenox. Resolved recurrent persistent seizure: -Seizures medication is continued, he having no more seizures. -will keep eyes on his HB and Hct and electrolytes. -vitals monitoring -Patient head will be kept low -DVT prophylaxis -Full code Problem List: 1. CVA 2. Hemiparesis 3. Full code status 4. Seizure 5. Status epilepticus 6. Weakness 7. History of stroke 8. Right femoral fracture Pain Ratin Pain Location: whole body Pain Goal: Remain pain free Pain Plan: Pain managment pathway Tomorrow's Labs & Rationales: cbc,
[2017-12-14 09:01] LABS: ABSOLUTE BASOPHIL COUNT 0 /CUMM (0.0-0.2); ABSOLUTE EOSINOPHIL COUNT 0 /CUMM (0.0-0.7); ABSOLUTE GRANULOCYTE CT 7.9 /CUMM (1.4-6.5); ABSOLUTE LYMPH COUNT 0.6 /CUMM (1.2-3.4); ABSOLUTE MONOCYTE COUNT 1.2 /CUMM (0.10-0.60); BASOPHIL % 0.1 % (0.0-2.0); EOSINOPHIL % 0.5 % (0-5); GRANULOCYTE % 81.4 % (42.2-75.2); HEMATOCRIT 22.9 % (42-52); MEAN CORPUSCULAR HGB 31.5 PG (27.0-31.0); MEAN CORPUSCULAR HGB CONC 34.5 G/DL (33.0-37.0); MEAN CORPUSCULAR VOLUME 91.2 FL (80.0-94.0); MEAN PLATELET VOLUME 6.4 FL (7.4-10.4); PLATELET COUNT 206 /CUMM (130-400); RBC DISTRIBUTION WIDTH 14.8 % (11.5-14.5); RED BLOOD CELL CT 2.51 /CUMM (4.70-6.10); WHITE BLOOD CELL COUNT 9.7 /CUMM (4.8-10.8)
--- NOTE | 2017-12-14 11:16 | PN- Att Addend ---
Attending Addendum Attending Brief Note Patient in bed patient sleeping at this time. Still looks weak and pale. Temp max 100.8 other vital signs are stable. No major changes on physical. Patient got 1 transfusion yesterday. His H&H is still low. Will monitor closely and if necessary given more blood. Also monitoring intake and output which has not been the greatest. Intake & Output 12/14 1600 12/14 0400 12/13 1600 12/13 0400 12/12 1600 12/12 040 Intake Total 260 2632.3 1510 3095 75 Output Total 250 1250 194 965 0997 Balance -250 -990 1932.3 1360 1995 75 Intake, Blood 300 350 Product Intake, IV 260 1372.3 760 2175 75 Intake, Oral 960 400 920 Number 1 1 1 2 Bowel Movements Output, Urine 250 1250 030 776 4548 Patient 237 lb 231 lb Weight Weight Bed scale Bed scale Measurement Method Current Medications Sig/Miladis Start time Last Medication Dose Route Stop Time Status Admin Acetaminophen 0 .STK-MED ONE 12/13 2241 DC IV Acetaminophen 1,000 MG Q6P PRN 12/11 1100 AC 12/13 N/A 1 UNIT IV 2242 Acetaminophen 500 MG BID PRN 12/07 1415 AC 12/11 PO 0406 Amlodipine Besylate 2.5 MG DAILY 12/08 899 AC 12/14 PO 0909 Artificial Tears 2 GTT 4 TIMES/DAY 12/03 899 AC 12/14 OPH 0917 Aspirin Buffered 81 MG DAILY 12/08 899 AC 12/14 PO 0904 Atorvastatin Calcium 10 MG 1700 12/07 1700 AC 12/13 PO 1746 Divalproex Sodium 750 MG BID 12/08 09 AC 12/14 PO 0904 Docusate Sodium 100 MG BID 12/07 2100 AC 12/14 PO 0904 Enoxaparin Sodium 160 MG DAILY 12/13 1800 AC 12/14 SC 0905 Erythromycin 1 EVERETT 4 TIMES/DAY 12/04 899 AC 12/14 OPH 0917 Escitalopram Oxalate 20 MG DAILY 12/08 899 AC 12/14 PO 09 Famotidine 20 MG DAILY 12/08 899 AC 12/14 PO 0906 Furosemide 40 MG ONCE ONE 12/13 1315 DC 12/13 IV 12/13 1316 1518 Heparin Sodium 4,320 UNIT ONCE ONE 12/13 1115 DC 12/13 (Porcine) IV 12/13 1116 1134 Heparin Sodium 25,000 UNIT Q24H 12/12 0900 DC 12/13 (Porcine) IV 1049 Sodium Chloride 500 ML Lactulose 20 GM BID 12/03 2100 AC 12/14 PO 0905 Levetiracetam 1,000 MG Q12H 12/11 1016 AC 12/14 N/A 1 UNIT IV 0918 Levothyroxine Sodium 0.125 MG DAILY AC 12/08 07 AC 12/14 PO 0550 Linaclotide 290 MCG DAILY 12/02 1515 AC 12/14 PO 0910 Lisinopril 5 MG DAILY 12/08 09 AC 12/14 PO 0910 Magnesium Hydroxide 30 ML AT BEDTIME PRN 12/03 1815 AC PO Melatonin 3 MG QPM 12/07 2100 AC 12/13 PO 2201 Morphine Sulfate 4 MG Q4P PRN 12/11 2215 AC 12/12 IV 2247 Ondansetron HCl 4 MG Q6P PRN 12/04 1100 AC 12/04 IV 1057 Oxycodone HCl 5 MG Q6PRN PRN 12/11 2215 AC 12/13 PO 0523 Senna 187 MG AT BEDTIME 12/02 2100 AC 12/13 PO 2159 Tamsulosin HCl 0.8 MG DAILY 12/08 09 AC 12/14 PO 0909 Warfarin Sodium 5 MG COUMADIN 1700 12/14 1700 AC PO 12/14 2359 Laboratory Tests 12/14/17 0746: CBC w Diff NO MAN DIFF REQ, RBC 2.51 L, MCV 91.2, MCH 31.5 H, MCHC 34.5, RDW 14.8 H, MPV 6.4 L, Gran % 81.4 H, Lymphocytes % 6.1 L, Monocytes % 11.9 H, Eosinophils % 0.5, Basophils % 0.1, Absolute Granulocytes 7.9 H, Absolute Lymphocytes 0.6 L, Absolute Monocytes 1.2 H, Absolute Eosinophils 0, Absolute Basophils 0 12/13/17 0910: APTT 58 H 12/13/17 0815: Anion Gap 1 L, Estimated GFR > 60, BUN/Creatinine Ratio 22.0, PT 14.6 H, INR 1.34 H, CBC w Diff NO MAN DIFF REQ, RBC 2.44 L, MCV 91.3, MCH 31.2 H, MCHC 34.2, RDW 14.1, MPV 6.7 L, Gran % 81.8 H, Lymphocytes % 6.2 L, Monocytes % 11.4 H, Eosinophils % 0.4, Basophils % 0.2, Absolute Granulocytes 8.2 H, Absolute Lymphocytes 0.6 L, Absolute Monocytes 1.1 H, Absolute Eosinophils 0, Absolute Basophils 0 12/13/17 0206: APTT 59 H 12/12/17 1805: APTT 32 12/12/17 0920: Troponin I < 0.01 12/12/17 0909: Troponin I Cancelled 12/12/17 0759: Anion Gap 2 L, Estimated GFR > 60, BUN/Creatinine Ratio 24.3, CBC w Diff NO MAN DIFF REQ, RBC 2.43 L, MCV 91.4, MCH 31.6 H, MCHC 34.6, RDW 13.9, MPV 6.8 L, Gran % 89.3 H, Lymphocytes % 3.4 L, Monocytes % 7.2, Eosinophils % 0, Basophils % 0.1, Absolute Granulocytes 8.8 H, Absolute Lymphocytes 0.3 L, Absolute Monocytes 0.7 H, Absolute Eosinophils 0, Absolute Basophils 0 12/11/17 2100: CBC w Diff NO MAN DIFF REQ, RBC 2.64 L, MCV 91.9, MCH 30.5, MCHC 33.2, RDW 13.9 , MPV 6.2 L, Gran % 93.6 H, Lymphocytes % 2.7 L, Monocytes % 3.5, Eosinophils % 0.2, Basophils % 0, Absolute Granulocytes 9.9 H, Absolute Lymphocytes 0.3 L, Absolute Monocytes 0.4, Absolute Eosinophils 0, Absolute Basophils 0 Microbiology 12/12 1999 URINE ROUT: Urine Culture - COMP Microbiology 12/12 1999 URINE ROUT: Urine Culture - COMP Vital Signs Date Time Temp Pulse Resp B/P B/P Pulse O2 O2 Flow FiO2 Mean Ox Delivery Rate 12/14 0910 84 130/72 12/14 0909 84 130/72 12/14 0909 84 130/72 12/14 0636 97.7 85 18 110/80 93 Room Air 12/14 0144 97.9 12/14 0000 Nasal 2.0L Cannula 12/13 2258 100.8 96 20 108/70 95 Nasal 2.0L Cannula 12/13 2242 100.8 12/13 1507 98.7 98 16 98/66 94 Patient on Lovenox now.
[2017-12-14 14:20] VITALS: BP 140/70
[2017-12-14 22:07] VITALS: BP 124/70
[2017-12-15 06:36] VITALS: BP 126/66
[2017-12-15 08:52] LABS: ABSOLUTE BASOPHIL COUNT 0 /CUMM (0.0-0.2); ABSOLUTE EOSINOPHIL COUNT 0.1 /CUMM (0.0-0.7); ABSOLUTE GRANULOCYTE CT 6.6 /CUMM (1.4-6.5); ABSOLUTE LYMPH COUNT 0.7 /CUMM (1.2-3.4); ABSOLUTE MONOCYTE COUNT 1.1 /CUMM (0.10-0.60); BASOPHIL % 0.1 % (0.0-2.0); EOSINOPHIL % 1.6 % (0-5); GRANULOCYTE % 77.9 % (42.2-75.2); HEMATOCRIT 24.5 % (42-52); MEAN CORPUSCULAR HGB 31.2 PG (27.0-31.0); MEAN CORPUSCULAR HGB CONC 33.9 G/DL (33.0-37.0); MEAN PLATELET VOLUME 6.6 FL (7.4-10.4); PLATELET COUNT 217 /CUMM (130-400); RBC DISTRIBUTION WIDTH 15.1 % (11.5-14.5); RED BLOOD CELL CT 2.66 /CUMM (4.70-6.10); WHITE BLOOD CELL COUNT 8.5 /CUMM (4.8-10.8)
[2017-12-15 08:59] LABS: PT 14.1 SEC (9.4-12.5)
--- NOTE | 2017-12-15 11:41 | PN- Housestaff ---
Subjective Follow-up For: Symptomatic anemia due to acute blood loss, right femur head fracture Subjective: Patient seen and examined at bedside. Patient is a little bit drowsy. He is oriented in time place person. he is complaining pain and whole body. Nurse told me that he having left arm swelling. He denies fever, chest pain, palpitation, chills, abdominal pain, diarrhea, constipation, burning micturition Review of Systems Constitutional: Reports: see HPI. Objective Last 24 Hrs of Vital Signs/I&O Vital Signs Date Time Temp Pulse Resp B/P B/P Pulse O2 O2 Flow FiO2 Mean Ox Delivery Rate 12/15 812 80 130/74 12/15 0813 80 130/74 12/15 0813 80 130/74 12/15 0800 Nasal 2.0L Cannula 12/15 0636 98.6 82 20 126/66 93 12/15 0000 Nasal 2.0L Cannula 12/14 2207 100.1 93 20 124/70 95 Nasal Cannula Intake & Output 12/15 1600 12/15 0800 12/15 0000 Intake Total 730 350 300 Output Total 200 400 Balance 730 150 -100 Intake, IV 30 150 Intake, Oral 700 200 300 Output, Urine 200 400 Patient 240 lb Weight Weight Bed scale Measurement Method Physical Exam General Appearance: Alert, Oriented X3, Cooperative, No Acute Distress Assessment/Plan Assessment: 67-year-old male (post seizure, post intubation), shifted from ICU with past medical history of seizures, 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 Problems list: -Right femur neck fracture with a hematoma and anemia -Resolved recurrent persistent seizure -Resolved fever completed 5 days antibiotic course -Resolved sinus tachycardia - Plan: -Acute H&H drop: Reduce Packed RBC arranged, blood transfusion done today yesterday. We will follow H&H. Yesterday HB was 7.9g/dl now 8.3g/dl will follow up on Hb Hct today. Inputoutput monitoring Vitals monitors *Right femur neck fracture: -Orthopedic consult appreciated -Blood thinner changed from heparin to Lovenox for DVT, ischemic CVA recent Hx of surgery where endothelial damge is most common. discussed with my attending Dr. Spencer my concern about recent Hx of hematoma and and starting lovenox he is agree with starting Lovenox. Resolved recurrent persistent seizure: -Seizures medication is continued, he having no more seizures. Hypothyroidism: Patient medication for hypothyroidism is continued. Tablet levothyroxine 2.5 mg daily Hypertension: Patient antihypertensive medication amlodipine 2.5 mg daily is continued. Tablets aspirin 80 mg daily. Hyperlipidemia: Atorvastatin 10 mg daily discontinued -will keep eyes on his HB and Hct and electrolytes. -vitals monitoring -Patient head will be kept low -DVT prophylaxis -Full code Problem List: 1. CVA 2. Hemiparesis 3. Hypothyroidism 4. Weakness 5. Full code status 6. Seizure Pain Ratin Pain Location: Whole body Pain Goal: Remain pain free Pain Plan: Pain management pathway Tomorrow's Labs & Rationales: cbc
--- NOTE | 2017-12-15 15:25 | PN- Att Addend ---
Attending Addendum Attending Brief Note Mr. Pagan was interviewed after he was awakened from a nap. His EMR was reviewed. He offers no complaints. T-max 100.1. Pulse 80 respirations 20 BP 130/74 output 200 NAD Anterior chest exam clear With regular rate and rhythm. WBC 8500 H&H 8.3/24.5 electrolytes and renal function stable and satisfactory Mr. Pagan's H&H remained stable after transfusion of packed red cells on . We will continue to monitor and transfuse as needed. DVT prophylaxis has been implemented with Lovenox. Urine output remains low and we should continue his IV fluids. We are continuing his maintenance medications.
[2017-12-15 15:41] VITALS: BP 120/70
[2017-12-15 22:40] VITALS: BP 126/80
[2017-12-16 06:25] VITALS: BP 118/78
--- NOTE | 2017-12-16 07:42 | PN- Housestaff ---
Ovi Avendaño 12/16/17 0731: Subjective Follow-up For: right femur fracture, Symptomatic anemia due to acute blood loss Subjective: Patient seen and examined at bedside. He was a little bit drowsy. He was oriented to time place person. He is complaining of decreased sleep. Is complaining of pain and whole body. He denies fever, chills, chest diarrhea, constipation, burning micturition, palpitation. Review of Systems Constitutional: Reports: see HPI. Objective Last 24 Hrs of Vital Signs/I&O Vital Signs Date Time Temp Pulse Resp B/P B/P Pulse O2 O2 Flow FiO2 Mean Ox Delivery Rate 12/16 1558 98.5 88 22 120/80 98 12/16 0840 86 120/70 12/16 0840 86 120/70 12/16 0839 86 120/70 12/16 0800 Nasal 2.0L Cannula 12/16 0625 98.4 82 20 118/78 97 12/16 0000 Nasal 2.0L Cannula 12/15 2240 98.6 89 20 126/80 96 Nasal Cannula Intake & Output 12/16 1600 12/16 0800 12/16 0000 Intake Total 1360 400 350 Output Total 675 100 375 Balance 685 300 -25 Intake, IV 150 Intake, Oral 1360 400 200 Number 1 2 Bowel Movements Output, Urine 675 100 375 Patient 249 lb 241 lb Weight Weight Bed scale Measurement Method Physical Exam General Appearance: Alert, Oriented X3, Cooperative Assessment/Plan Assessment: 67-year-old male (post seizure, post intubation), shifted from ICU with past medical history of seizures, 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 Problems list: -Right femur neck fracture with a hematoma and anemia -Resolved recurrent persistent seizure -Resolved fever completed 5 days antibiotic course -Resolved sinus tachycardia -Fluid overload - Plan: -Acute H&H drop: Reduce Packed RBC arranged, blood transfusion done today yesterday. We will follow H&H. Yesterday HB 8.3g/dl today 7.9 will follow up on Hb Hct today. Inputoutput monitoring Vitals monitors Fluid overload: *Today the patient having bilateral pedal edema *Patient weight increased 7 pounds *Bilateral chest wheeze *20 mg IV Lasix stat doses given *We will follow-up attending recommendation *Strict input output monitoring *Right femur neck fracture: -Orthopedic consult appreciated -Blood thinner changed from heparin to Lovenox for DVT, ischemic CVA recent Hx of surgery where endothelial damge is most common. discussed with my attending Dr. Spencer my concern about recent Hx of hematoma and and starting lovenox he is agree with starting Lovenox. Resolved recurrent persistent seizure: -Seizures medication is continued, he having no more seizures. Hypothyroidism: Patient medication for hypothyroidism is continued. Tablet levothyroxine 2.5 mg daily Hypertension: Patient antihypertensive medication amlodipine 2.5 mg daily is continued. Tablets aspirin 80 mg daily. Hyperlipidemia: Atorvastatin 10 mg daily DVT: -Lovenox continue -Daily INR -Coumadin daily after INR -will keep eyes on his HB and Hct and electrolytes. -vitals monitoring -Patient head will be kept low -DVT prophylaxis -Full code Problem List: 1. Hemiparesis 2. Seizure disorder 3. Right femoral fracture 4. Anemia Pain Ratin Pain Location: Whole body Pain Goal: Remain pain free Pain Plan: Pain management pathway Tomorrow's Labs & Rationales: Toro Jiménez MD 12/16/17 1348: Attending MD Review Statement Attending Statement Attending MD Statement: examined this patient, agreed w/resident/PA/[employer]IL FI[employer] TECHNICIAN, reviewed EMR data (avail), amended to note Attending Assessment/Plan: Mr. Pagan was interviewed and examined. His EMR was reviewed. He remains somewhat lethargic but does respond to queries. He complains of a global headache today but has no other complaints. Has remained afebrile over the last 24 hours. Heart and respiratory rates are satisfactory and stable. Blood pressure is also satisfactory and stable. He is in no acute distress. Chest exam reveals equal breath sounds. Heart exam reveals a regular rate and rhythm. His abdomen is soft and nontender. H&H today is 7.8/22.6. His INR is 1.53. Electrolytes and renal function are stable. We are continuing to adjust his warfarin dose while bridging with Lovenox. We are following his H&H and will transfuse with PRBCs once necessary. We are continuing his maintenance medications.
[2017-12-16 09:14] LABS: ABSOLUTE BASOPHIL COUNT 0 /CUMM (0.0-0.2); ABSOLUTE EOSINOPHIL COUNT 0.1 /CUMM (0.0-0.7); ABSOLUTE GRANULOCYTE CT 5.5 /CUMM (1.4-6.5); ABSOLUTE LYMPH COUNT 0.6 /CUMM (1.2-3.4); ABSOLUTE MONOCYTE COUNT 0.7 /CUMM (0.10-0.60); BASOPHIL % 0.2 % (0.0-2.0); EOSINOPHIL % 1.7 % (0-5); GRANULOCYTE % 79.8 % (42.2-75.2); HEMATOCRIT 22.6 % (42-52); MEAN CORPUSCULAR HGB 31.7 PG (27.0-31.0); MEAN CORPUSCULAR HGB CONC 34.2 G/DL (33.0-37.0); MEAN CORPUSCULAR VOLUME 92.7 FL (80.0-94.0); MEAN PLATELET VOLUME 6.5 FL (7.4-10.4); PLATELET COUNT 195 /CUMM (130-400); RBC DISTRIBUTION WIDTH 14.4 % (11.5-14.5); RED BLOOD CELL CT 2.44 /CUMM (4.70-6.10); WHITE BLOOD CELL COUNT 6.9 /CUMM (4.8-10.8)
[2017-12-16 13:19] LABS: PT 16.7 SEC (9.4-12.5)
[2017-12-16 15:58] VITALS: BP 120/80
[2017-12-16 22:36] VITALS: BP 132/76
--- NOTE | 2017-12-17 07:10 | PN- Housestaff ---
Subjective Follow-up For: Right femur head fracture, Symptomatic anemia due to acute blood loss Subjective: Patient seen and examined at bedside. He is oriented in time place person. He was a little bit drowsy. Is complaining pain in the whole body. He denies chest pain, shortness of breath, palpitation, abdominal pain, diarrhea, fever, chills Review of Systems Constitutional: Reports: see HPI. Objective Last 24 Hrs of Vital Signs/I&O Vital Signs Date Time Temp Pulse Resp B/P B/P Pulse O2 O2 Flow FiO2 Mean Ox Delivery Rate 12/17 1539 Nasal 2.0L Cannula 12/17 1453 97.8 89 18 132/65 93 Nasal Cannula 12/17 1410 97.5 96 18 100/60 94 Nasal 2.0L Cannula 12/17 1115 Nasal 2.0L Cannula 12/17 1028 94 110/70 12/17 1027 94 110/70 12/17 1027 94 110/70 12/17 0800 95 Nasal 2.0L Cannula 12/17 0711 99.1 32 20 100/70 81 12/17 0000 Nasal 2.0L Cannula 12/16 2236 99.6 91 20 132/76 95 Nasal 2.0L Cannula Intake & Output 12/17 1600 12/17 0800 12/17 0000 Intake Total 240 Output Total 900 200 275 Balance -900 -200 -35 Intake, Oral 240 Number 2 2 Bowel Movements Output, Urine 900 200 275 Patient 240 lb Weight Weight Bed scale Measurement Method Physical Exam General Appearance: Alert, Oriented X3, Cooperative Assessment/Plan Assessment: 67-year-old male (post seizure, post intubation), shifted from ICU with past medical history of seizures, 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 Problems list: -Right femur neck fracture with a hematoma and anemia -Resolved recurrent persistent seizure -Resolved fever completed 5 days antibiotic course -Resolved sinus tachycardia -Fluid overload - Plan: -Acute H&H drop: Reduce Packed RBC arranged, blood transfusion done today yesterday. We will follow H&H. Yesterday his HB drop from 7.9 today 7.1. Inputoutput monitoring Vitals monitors Fluid overload: *Today the patient having bilateral pedal edema *Scrotal swelling *Bilateral chest wheeze *40mg IV Lasix stat doses given then 40 mg IV Lasix twice daily will be started *Patient BP is 100/60, *Case discussed with Dr. Frausto *Strict input output monitoring *Right femur neck fracture: -Orthopedic consult appreciated *Bandage changed *Orthopedic recommended the patient can move to a chair *PT evaluation done the patient is not able to sit in the bed. Resolved recurrent persistent seizure: -Seizures medication is continued, he having no more seizures. Hypothyroidism: Patient medication for hypothyroidism is continued. Tablet levothyroxine 2.5 mg daily Hypertension: Patient antihypertensive medication amlodipine 2.5 mg daily is continued. Tablets aspirin 80 mg daily. Hyperlipidemia: Atorvastatin 10 mg daily DVT: -Lovenox continue -Daily INR -Coumadin daily after INR -will keep eyes on his HB and Hct and electrolytes. -vitals monitoring -Patient head will be kept low -DVT prophylaxis -Full code Problem List: 1. CVA 2. Hemiparesis 3. Weakness 4. Right femoral fracture 5. Anemia Pain Ratin Pain Location: Whole body Pain Goal: Remain pain free Pain Plan: Pain management pathway Tomorrow's Labs & Rationales: CBC
[2017-12-17 07:11] VITALS: BP 100/70
[2017-12-17 08:15] LABS: PT 14.1 SEC (9.4-12.5)
[2017-12-17 08:54] LABS: ABSOLUTE BASOPHIL COUNT 0 /CUMM (0.0-0.2); ABSOLUTE EOSINOPHIL COUNT 0.1 /CUMM (0.0-0.7); ABSOLUTE GRANULOCYTE CT 4.2 /CUMM (1.4-6.5); ABSOLUTE LYMPH COUNT 0.6 /CUMM (1.2-3.4); ABSOLUTE MONOCYTE COUNT 0.9 /CUMM (0.10-0.60); GRANULOCYTE % 71.6 % (42.2-75.2); MEAN CORPUSCULAR HGB 31.1 PG (27.0-31.0); MEAN CORPUSCULAR VOLUME 91.4 FL (80.0-94.0); RED BLOOD CELL CT 2.28 /CUMM (4.70-6.10)
[2017-12-17 09:19] LABS: BASOPHIL % 0.2 % (0.0-2.0); EOSINOPHIL % 2.4 % (0-5); HEMATOCRIT 20.8 % (42-52); MEAN PLATELET VOLUME 6.8 FL (7.4-10.4); PLATELET COUNT 189 /CUMM (130-400); WHITE BLOOD CELL COUNT 5.8 /CUMM (4.8-10.8)
--- NOTE | 2017-12-17 09:53 | PN- Orthopedic ---
Subjective Subjective: Patient is very sleepy this morning states his pain is controlled Objective Vital Signs and I&Os Vital Signs Date Time Temp Pulse Resp B/P B/P Pulse O2 O2 Flow FiO2 Mean Ox Delivery Rate 12/17 0711 99.1 32 20 100/70 81 12/17 0000 Nasal 2.0L Cannula 12/16 2236 99.6 91 20 132/76 95 Nasal 2.0L Cannula 12/16 1600 Nasal 2.0L Cannula 12/16 1558 98.5 88 22 120/80 98 Intake & Output 12/17 0800 12/17 0000 12/16 1600 12/16 0812/16 0000 Intake Total 240 1360 400 350 Output Total 200 275 675 100 375 Balance -200 -35 685 300 -25 Intake, IV 150 Intake, Oral 240 1360 400 200 Number 2 1 2 Bowel Movements Output, Urine 200 275 675 100 375 Patient 249 lb 241 lb Weight Weight Bed scale Measurement Method Physical Exam: Patient is alert and oriented but very sleepy at his baseline. Vital signs are stable and he is afebrile Chest is clear to auscultation symmetric fine crackles at bases bilaterally Heart regular rate rhythm Abdomen is rounded without distention nontender Moderate scrotal edema Killian catheter still in place Marked edema of the left upper extremity Bilateral lower extremity with 2+ pitting edema calves are nontender if there is good distal perfusion Right hip wound clean dry and intact without any evidence of erythema or drainage dressings are removed and a new dressing is applied today Assessment/Plan Assessment/Plan 67-year-old male who is postop day 6 after having a right hemiarthroplasty. Would recommend at this time out of bed to chair with physical therapy consult he is weightbearing as tolerated Hopefully he can return to his baseline ambulatory status with use of his assistance devices Continue to follow H&H please transfuse when appropriate a.m. labs are pending this morning DVT prophylaxis he is currently on Coumadin and Lovenox to bridge Continue to follow INRs and DC Lovenox when therapeutic Would recommend a Killian to be DC'd and placement into rehab for further orthopedic care He will need a follow-up appointment for staple removal in approximately 7 days
--- NOTE | 2017-12-17 13:36 | PN- Att Addend ---
Attending Addendum Attending Brief Note Still weak and pale. Temp. max.99.1, some edema ?overloaded ,will diurese and also transfuse hemoglobin only 7.0. Intake & Output 12/17 1600 12/17 0400 12/16 1600 12/16 0400 12/15 1600 12/15 040 Intake Total 240 0600 639 9933 300 Output Total 650 275 775 375 500 400 Balance -650 -35 985 -25 780 -100 Intake, IV 150 180 Intake, Oral 240 0926 232 8182 300 Number 2 2 1 2 Bowel Movements Output, Urine 650 275 775 375 500 400 Patient 249 lb 240 lb Weight Weight Bed scale Bed scale Measurement Method Current Medications Sig/Miladis Start time Last Medication Dose Route Stop Time Status Admin Acetaminophen 1,000 MG Q6P PRN 12/11 1100 AC 12/13 N/A 1 UNIT IV 2242 Acetaminophen 500 MG BID PRN 12/07 1415 AC 12/14 PO 2116 Amlodipine Besylate 2.5 MG DAILY 12/08 899 AC 12/17 PO 1027 Artificial Tears 2 GTT 4 TIMES/DAY 12/03 899 AC 12/17 OPH 1329 Aspirin Buffered 81 MG DAILY 12/08 09 AC 12/17 PO 1028 Atorvastatin Calcium 10 MG 1700 12/07 1700 AC 12/16 PO 1725 Divalproex Sodium 750 MG BID 12/08 899 AC 12/17 PO 1028 Docusate Sodium 100 MG BID 12/07 2100 AC 12/17 PO 1028 Enoxaparin Sodium 160 MG DAILY 12/13 1800 AC 12/17 SC 1029 Erythromycin 1 EVERETT 4 TIMES/DAY 12/04 899 AC 12/17 OPH 1330 Escitalopram Oxalate 20 MG DAILY 12/08 09 AC 12/17 PO 1027 Famotidine 20 MG DAILY 12/08 899 AC 12/17 PO 1027 Furosemide 40 MG ONCE ONE 12/17 1115 DC 12/17 IV 12/17 1116 1240 Lactulose 20 GM BID 12/03 2100 AC 12/16 PO 2130 Levetiracetam 1,000 MG BID 12/17 2100 AC PO Levetiracetam 1,000 MG Q12H 12/11 1016 DC 12/17 N/A 1 UNIT IV 1034 Levothyroxine Sodium 0.125 MG DAILY AC 12/08 07 AC 12/17 PO 0521 Linaclotide 290 MCG DAILY 12/02 1515 AC 12/17 PO 1028 Lisinopril 5 MG DAILY 12/08 09 AC 12/17 PO 1027 Magnesium Hydroxide 30 ML AT BEDTIME PRN 12/03 181 AC PO Melatonin 3 MG QPM 12/07 2100 AC 12/16 PO 2130 Morphine Sulfate 4 MG Q4P PRN 12/11 221 AC 12/17 IV 1240 Ondansetron HCl 4 MG Q6P PRN 12/04 1100 AC 12/04 IV 1057 Oxycodone HCl 5 MG Q6PRN PRN 12/11 2214 AC 12/13 PO 0523 Senna 187 MG AT BEDTIME 12/02 2100 AC 12/16 PO 2130 Tamsulosin HCl 0.8 MG DAILY 12/08 09 AC 12/17 PO 1028 Warfarin Sodium 5 MG COUMADIN 1700 12/16 1700 AC 12/16 PO 1726 Laboratory Tests 12/17/17 0705: PT 14.1 H, INR 1.29 H, CBC w Diff NO MAN DIFF REQ, RBC 2.28 L, MCV 91.4, MCH 31.1 H, MCHC 34.0, RDW 15.0 H, MPV 6.8 L, Gran % 71.6, Lymphocytes % 11.0 L, Monocytes % 14.8 H, Eosinophils % 2.4, Basophils % 0.2, Absolute Granulocytes 4.2, Absolute Lymphocytes 0.6 L, Absolute Monocytes 0.9 H, Absolute Eosinophils 0.1, Absolute Basophils 0 12/16/17 1250: PT 16.7 H, INR 1.53 H 12/16/17 0808: CBC w Diff NO MAN DIFF REQ, RBC 2.44 L, MCV 92.7, MCH 31.7 H, MCHC 34.2, RDW 14.4, MPV 6.5 L, Gran % 79.8 H, Lymphocytes % 8.6 L, Monocytes % 9.7 H, Eosinophils % 1.7, Basophils % 0.2, Absolute Granulocytes 5.5, Absolute Lymphocytes 0.6 L, Absolute Monocytes 0.7 H, Absolute Eosinophils 0.1, Absolute Basophils 0 12/15/17 0749: PT 14.1 H, INR 1.29 H, CBC w Diff NO MAN DIFF REQ, RBC 2.66 L, MCV 92.0, MCH 31.2 H, MCHC 33.9, RDW 15.1 H, MPV 6.6 L, Gran % 77.9 H, Lymphocytes % 7.8 L, Monocytes % 12.6 H, Eosinophils % 1.6, Basophils % 0.1, Absolute Granulocytes 6.6 H, Absolute Lymphocytes 0.7 L, Absolute Monocytes 1.1 H, Absolute Eosinophils 0.1, Absolute Basophils 0 Vital Signs Date Time Temp Pulse Resp B/P B/P Pulse O2 O2 Flow FiO2 Mean Ox Delivery Rate 12/17 1115 Nasal 2.0L Cannula 12/17 1028 94 110/70 12/17 1027 94 110/70 12/17 1027 94 110/70 12/17 0711 99.1 32 20 100/70 81 12/17 0000 Nasal 2.0L Cannula 12/16 2236 99.6 91 20 132/76 95 Nasal 2.0L Cannula 12/16 1600 Nasal 2.0L Cannula 12/16 1558 98.5 88 22 120/80 98
[2017-12-17 14:10] VITALS: BP 100/60
[2017-12-17 14:53] VITALS: BP 132/65
[2017-12-17 22:13] VITALS: BP 140/74
[2017-12-18 06:23] VITALS: BP 126/60
--- NOTE | 2017-12-18 07:07 | PN- Housestaff ---
Subjective Follow-up For: Symptomatic anemia due to acute blood loss, right femur head fracture Subjective: Patient seen and examined at bedside. He having no new complaint. He complained of pain all over the body. He complaining of possible sleep. He denies fever, chills, chest pain, shortness of breath, palpitation, diarrhea, constipation. Review of Systems Constitutional: Reports: see HPI. Objective Last 24 Hrs of Vital Signs/I&O Vital Signs Date Time Temp Pulse Resp B/P B/P Pulse O2 O2 Flow FiO2 Mean Ox Delivery Rate 12/18 1417 99.1 91 22 128/72 94 Room Air 12/18 0933 98 126/60 12/18 0925 98 126/60 12/18 0923 98 126/60 12/18 0800 Nasal 2.0L Cannula 12/18 0623 98.3 98 18 126/60 92 12/18 0000 95 Nasal 2.0L Cannula 12/17 2235 98 12/17 2213 99.1 106 20 140/74 96 Nasal Cannula Intake & Output 12/18 1600 12/18 0800 12/18 0000 Intake Total 120 950 Output Total 072 273 9339 Balance -450 -130 -300 Intake, IV 350 Intake, Oral 120 600 Output, Urine 987 670 7727 Patient 241 lb Weight Weight Bed scale Measurement Method Physical Exam General Appearance: Alert, Oriented X3, Cooperative, No Acute Distress Assessment/Plan Assessment: 67-year-old male (post seizure, post intubation), shifted from ICU with past medical history of seizures, 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 Problems list: -Right femur neck fracture with a hematoma and anemia -Resolved recurrent persistent seizure -Resolved fever completed 5 days antibiotic course -Resolved sinus tachycardia -Fluid overload - Plan: -Acute H&H drop: Reduce Packed RBC arranged, blood transfusion done today yesterday. We will follow H&H. Yesterday his HB drop from 7.1 to 6.4 - 1 unit blood transfusion done -CBC orderd at 10 PM, tomorrow a.m. mention in signed out to night team about critical situation of the patient Inputoutput monitoring Vitals monitors -Planing CT abdomen and pelvis to look for acute blood loss tomorrow Fluid overload: *Today the patient having bilateral pedal edema *Scrotal swelling *Bilateral chest wheeze *40mg IV Lasix stat doses given then 40 mg IV Lasix twice daily will be started * discussed with Dr. Frausto *Strict input output monitoring *Weight monitoring daily *Right femur neck fracture: -Orthopedic consult appreciated *Bandage changed *Orthopedic recommended the patient can move to a chair *PT evaluation done the patient is not able to sit in the bed. Resolved recurrent persistent seizure: -Seizures medication is continued, he having no more seizures. Hypothyroidism: Patient medication for hypothyroidism is continued. Tablet levothyroxine 2.5 mg daily Hypertension: Patient antihypertensive medication amlodipine 2.5 mg daily is continued. Tablets aspirin 80 mg daily. Hyperlipidemia: Atorvastatin 10 mg daily DVT: -Lovenox continue -Daily INR -Coumadin daily after INR -will keep eyes on his HB and Hct and electrolytes. -vitals monitoring -Patient head will be kept low -DVT prophylaxis -Full code Problem List: 1. Hemiparesis 2. Hyperlipidemia 3. Full code status 4. Weakness 5. History of stroke 6. Anemia 7. Right femoral fracture Pain Ratin Pain Location: All over his body Pain Goal: Remain pain free Pain Plan: Pain management pathway Tomorrow's Labs & Rationales: CBC, BEP
--- NOTE | 2017-12-18 10:20 | PN- Att Addend ---
Attending Addendum Attending Brief Note Patient is a little brighter today, and bed still pale little shaky Vital signs are stable no fever. No major changes on physical examination. Will follow up the CBC, continue present treatments Intake & Output 12/18 040 Intake Total 120 019 142 4519 350 Output Total 250 1250 1100 275 775 375 Balance -130 -300 -1100 -35 985 -25 Intake, IV 350 150 Intake, Oral 120 276 513 4295 200 Number 2 2 1 2 Bowel Movements Output, Urine 250 1250 1100 275 775 375 Patient 241 lb 240 lb 249 lb Weight Weight Bed scale Bed scale Bed scale Measurement Method Laboratory Tests 12/17/17 0705: PT 14.1 H, INR 1.29 H, CBC w Diff NO MAN DIFF REQ, RBC 2.28 L, MCV 91.4, MCH 31.1 H, MCHC 34.0, RDW 15.0 H, MPV 6.8 L, Gran % 71.6, Lymphocytes % 11.0 L, Monocytes % 14.8 H, Eosinophils % 2.4, Basophils % 0.2, Absolute Granulocytes 4.2, Absolute Lymphocytes 0.6 L, Absolute Monocytes 0.9 H, Absolute Eosinophils 0.1, Absolute Basophils 0 12/16/17 1250: PT 16.7 H, INR 1.53 H 12/16/17 0808: CBC w Diff NO MAN DIFF REQ, RBC 2.44 L, MCV 92.7, MCH 31.7 H, MCHC 34.2, RDW 14.4, MPV 6.5 L, Gran % 79.8 H, Lymphocytes % 8.6 L, Monocytes % 9.7 H, Eosinophils % 1.7, Basophils % 0.2, Absolute Granulocytes 5.5, Absolute Lymphocytes 0.6 L, Absolute Monocytes 0.7 H, Absolute Eosinophils 0.1, Absolute Basophils 0 Vital Signs Date Time Temp Pulse Resp B/P B/P Pulse O2 O2 Flow FiO2 Mean Ox Delivery Rate 12/18 0933 98 126/60 12/18 0925 98 126/60 12/18 0923 98 126/60 12/18 0623 98.3 98 18 126/60 92 12/18 0000 95 Nasal 2.0L Cannula 12/175 98 08/27 2213 99.1 106 20 140/74 96 Nasal Cannula 12/17 1539 Nasal 2.0L Cannula 12/17 1453 97.8 89 18 132/65 93 Nasal Cannula 12/17 1410 97.5 96 18 100/60 94 Nasal 2.0L Cannula 12/17 1115 Nasal 2.0L Cannula 12/17 1028 94 110/70 12/17 1027 94 110/70 12/17 1027 94 110/
[2017-12-18 10:47] LABS: ABSOLUTE BASOPHIL COUNT 0 /CUMM (0.0-0.2); ABSOLUTE EOSINOPHIL COUNT 0 /CUMM (0.0-0.7); ABSOLUTE GRANULOCYTE CT 6.5 /CUMM (1.4-6.5); ABSOLUTE LYMPH COUNT 0.4 /CUMM (1.2-3.4); BASOPHIL % 0.2 % (0.0-2.0); EOSINOPHIL % 0.2 % (0-5); GRANULOCYTE % 82.4 % (42.2-75.2); MEAN CORPUSCULAR HGB 31.6 PG (27.0-31.0); MEAN PLATELET VOLUME 6.7 FL (7.4-10.4); PLATELET COUNT 187 /CUMM (130-400); RBC DISTRIBUTION WIDTH 15.6 % (11.5-14.5); RED BLOOD CELL CT 2.02 /CUMM (4.70-6.10); WHITE BLOOD CELL COUNT 7.9 /CUMM (4.8-10.8)
[2017-12-18 10:51] LABS: PT 24.1 SEC (9.4-12.5)
[2017-12-18 11:08] LABS: HEMATOCRIT 18.8 % (42-52)
[2017-12-18 14:17] VITALS: BP 128/72
[2017-12-18 22:03] VITALS: BP 110/60
[2017-12-18 23:35] LABS: ABSOLUTE BASOPHIL COUNT 0 /CUMM (0.0-0.2); ABSOLUTE EOSINOPHIL COUNT 0 /CUMM (0.0-0.7); ABSOLUTE GRANULOCYTE CT 6.4 /CUMM (1.4-6.5); ABSOLUTE LYMPH COUNT 0.5 /CUMM (1.2-3.4); ABSOLUTE MONOCYTE COUNT 1.2 /CUMM (0.10-0.60); BASOPHIL % 0.1 % (0.0-2.0); EOSINOPHIL % 0.5 % (0-5); GRANULOCYTE % 78.8 % (42.2-75.2); HEMATOCRIT 22.2 % (42-52); MEAN CORPUSCULAR HGB 30.9 PG (27.0-31.0); MEAN CORPUSCULAR HGB CONC 33.3 G/DL (33.0-37.0); MEAN CORPUSCULAR VOLUME 92.8 FL (80.0-94.0); MEAN PLATELET VOLUME 6.4 FL (7.4-10.4); PLATELET COUNT 197 /CUMM (130-400); RBC DISTRIBUTION WIDTH 15.2 % (11.5-14.5); WHITE BLOOD CELL COUNT 8.1 /CUMM (4.8-10.8)
[2017-12-19 07:12] VITALS: BP 110/64
[2017-12-19 08:20] LABS: ABSOLUTE BASOPHIL COUNT 0 /CUMM (0.0-0.2); ABSOLUTE EOSINOPHIL COUNT 0 /CUMM (0.0-0.7); ABSOLUTE GRANULOCYTE CT 6.4 /CUMM (1.4-6.5); ABSOLUTE LYMPH COUNT 0.5 /CUMM (1.2-3.4); BASOPHIL % 0.1 % (0.0-2.0); EOSINOPHIL % 0.4 % (0-5); GRANULOCYTE % 79.8 % (42.2-75.2); MEAN CORPUSCULAR HGB 31.1 PG (27.0-31.0); MEAN CORPUSCULAR HGB CONC 33.7 G/DL (33.0-37.0); MEAN CORPUSCULAR VOLUME 92.1 FL (80.0-94.0); MEAN PLATELET VOLUME 6.7 FL (7.4-10.4); PLATELET COUNT 188 /CUMM (130-400); RBC DISTRIBUTION WIDTH 15.6 % (11.5-14.5); RED BLOOD CELL CT 2.12 /CUMM (4.70-6.10); WHITE BLOOD CELL COUNT 8.1 /CUMM (4.8-10.8)
[2017-12-19 08:21] LABS: PT 23.6 SEC (9.4-12.5)
[2017-12-19 08:43] LABS: HEMATOCRIT 19.6 % (42-52)
[2017-12-19 09:30] VITALS: BP 92/50
[2017-12-19 11:45] VITALS: BP 96/54
--- NOTE | 2017-12-19 13:46 | PN- Housestaff ---
Subjective Follow-up For: Acute H&H drop postsurgery, right femur fracture Subjective: Patient seen and examined. He was lethargic and was not responding well. He was vitally stable. He denies fever, chills, chest pain, abdominal pain. Review of Systems Constitutional: Reports: see HPI. Objective Last 24 Hrs of Vital Signs/I&O Vital Signs Date Time Temp Pulse Resp B/P B/P Pulse O2 O2 Flow FiO2 Mean Ox Delivery Rate 12/19 2005 99.2 86 18 116/78 98 Nasal 2.0L Cannula 12/19 1600 Nasal 2.0L Cannula 12/19 1515 99.1 90 20 120/64 97 Nasal 2.0L Cannula 12/19 1145 98.4 86 20 96/54 97 Nasal 2.0L Cannula 12/19 1110 98.7 12/19 0930 99.6 88 20 92/50 97 Nasal 2.0L Cannula 12/19 0800 Nasal 2.0L Cannula 12/19 0712 100.1 56 20 110/64 94 Nasal 2.0L Cannula 12/19 0000 93 Nasal 2.0L Cannula 12/18 2203 98.9 105 20 110/60 93 Nasal 2.0L Cannula Intake & Output 12/19 1600 12/19 0800 12/19 0000 Intake Total 830 150 240 Output Total 300 1050 Balance 530 -900 240 Intake, Blood 350 Product Intake, IV 0 Intake, Oral 480 150 240 Number 2 1 Bowel Movements Output, Urine 300 1050 Physical Exam General Appearance: Alert, Oriented X3, Mild Distress Skin: ecchymosis in left arm HEENT: Atraumatic, PERRLA, EOMI Neck: Supple, No JVD, No thryomegaly, +2 Carotid Pulse wo Bruit Cardiovascular: Regular Rate, Normal S1, Normal S2 Lungs: Mild wheeze, and decrease air entery Abdomen: Normal Bowel Sounds, Soft, No Tenderness, No Hepatospenomegaly, No Masses Extremities: Bilateral pitting edeman of lower extremity. , swelling of left upper exteremity. Assessment/Plan Assessment: 67-year-old male (post seizure, post intubation), shifted from ICU with past medical history of seizures, 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 Problems list: -Right femur neck fracture with a hematoma and anemia -Resolved recurrent persistent seizure -Resolved fever completed 5 days antibiotic course -Resolved sinus tachycardia -Fluid overload - Plan: -Acute H&H drop: Reduce Packed RBC arranged, blood transfusion done today yesterday. We will follow H&H. Today his H&H droped to 6.61 transfusion is done now his HB is 8.2. -1 unit blood transfusion done -CBC orderd at 10 PM, tomorrow a.m. mention in signed out to night team about critical situation of the patient Inputoutput monitoring Vitals monitors -CT abdominal pelvis show new hematoma -Talked with surgical PA and she further discuss with on-call surgeon -He recommended no intervention-now -Will be observed Fluid overload: *Today the patient having bilateral pedal edema *Scrotal swelling *Strict input output monitoring *Weight monitoring daily *Right femur neck fracture: -Orthopedic consult appreciated *Bandage changed *Orthopedic recommended the patient can move to a chair *PT evaluation done the patient is not able to sit in the bed. Resolved recurrent persistent seizure: -Seizures medication is continued, he having no more seizures. Hypothyroidism: Patient medication for hypothyroidism is continued. Tablet levothyroxine 2.5 mg daily Hypertension: Patient antihypertensive medication amlodipine 2.5 mg daily is continued. Tablets aspirin 80 mg daily. Hyperlipidemia: Atorvastatin 10 mg daily DVT: -Lovenox continue -Daily INR -Coumadin daily after INR -will keep eyes on his HB and Hct and electrolytes. -vitals monitoring -Patient head will be kept low -DVT prophylaxis -Full code Problem List: 1. Hemiparesis 2. Weakness 3. DVT prophylaxis 4. Full code status 5. Anemia 6. Right femoral fracture Pain Ratin Pain Location: whole body Pain Goal: Remain pain free Pain Plan: pain mangement pathway Tomorrow's Labs & Rationales: cbc
[2017-12-19 15:15] VITALS: BP 120/64
--- NOTE | 2017-12-19 15:24 | PN- Att Addend ---
Attending Addendum Attending Brief Note Still doing poorly. Patient still weak still complaining of his usual pain. Learn that his H&H keeps dropping despite transfusions.. Temp max 100.1 the rest of the vital signs are stable. Patient still on Coumadin, case discussed with the resident will get another CAT scan of the abdomen to make sure there is no internal bleeding, check his stools for occult blood, his stools do not look black or red after that assess anticoagulation. Patient will be getting another transfusion. Intake & Output 12/19 1600 12/19 0400 12/18 1600 12/18 0400 12/17 1600 12/17 0400 Intake Total 980 240 120 950 240 Output Total 4480 899 1602 1100 275 Balance -370 240 -580 -300 -1100 -35 Intake, Blood 350 Product Intake, IV 0 350 Intake, Oral 630 240 120 600 240 Number 2 2 2 Bowel Movements Output, Urine 0811 338 0824 1100 275 Patient 241 lb 240 lb Weight Weight Bed scale Bed scale Measurement Method Current Medications Sig/Miladis Start time Last Medication Dose Route Stop Time Status Admin Acetaminophen 1,000 MG Q6P PRN 12/11 1100 AC 12/13 N/A 1 UNIT IV 2242 Acetaminophen 500 MG BID PRN 12/07 1415 AC 12/14 PO 2116 Amlodipine Besylate 2.5 MG DAILY 12/08 899 AC 12/18 PO 0933 Artificial Tears 2 GTT 4 TIMES/DAY 12/03 899 AC 12/19 OPH 1410 Aspirin Buffered 81 MG DAILY 12/08 899 AC 12/18 PO 0923 Atorvastatin Calcium 10 MG 1700 12/07 1700 AC 12/18 PO 1733 Divalproex Sodium 750 MG BID 12/08 899 AC 12/19 PO 1101 Docusate Sodium 100 MG BID 12/07 2100 12/19 PO 1101 Enoxaparin Sodium 160 MG DAILY 12/13 1800 DC 12/18 SC 0924 Erythromycin 1 EVERETT 4 TIMES/DAY 12/04 OPH 1410 Escitalopram Oxalate 20 MG DAILY 12/08 899 AC 12/19 PO 1101 Famotidine 20 MG DAILY 12/08 899 AC 12/19 PO 1102 Furosemide 40 MG BID 12/17 2146 AC 12/18 IV 2138 Lactulose 20 GM BID 12/03 PO 1104 Levetiracetam 1,000 MG BID 12/17 2100 AC 12/19 PO 1101 Levothyroxine Sodium 0.125 MG DAILY AC 12/08 0700 AC 12/19 PO 0626 Linaclotide 290 MCG DAILY 12/02 1515 AC 12/19 PO 1102 Lisinopril 5 MG DAILY 12/08 09 AC 12/18 PO 0925 Magnesium Hydroxide 30 ML AT BEDTIME PRN 12/03 1815 AC PO Melatonin 3 MG QPM 12/07 2100 AC 12/18 PO 2138 Morphine Sulfate 4 MG Q4P PRN 12/11 2215 DC 12/17 IV 1240 Ondansetron HCl 4 MG Q6P PRN 12/04 1100 AC 12/04 IV 1057 Oxycodone HCl 5 MG Q6PRN PRN 12/11 2215 DC 12/17 PO 1444 Potassium Chloride 40 MEQ ONCE ONE 12/19 1515 NH PO 12/19 1516 Senna 187 MG AT BEDTIME 12/02 2099 AC 12/18 PO 213 Tamsulosin HCl 0.8 MG DAILY 12/08 899 AC 12/18 PO 0923 Warfarin Sodium 5 MG COUMADIN 1700 12/16 1700 AC 12/18 PO 1733 Laboratory Tests 12/19/17 1013: Anion Gap 4 L, Estimated GFR > 60, BUN/Creatinine Ratio 23.8, Troponin I < 0.01 12/19/17 0710: PT 23.6 H, INR 2.15 H, CBC w Diff NO MAN DIFF REQ, RBC 2.12 L, MCV 92.1, MCH 31.1 H, MCHC 33.7, RDW 15.6 H, MPV 6.7 L, Gran % 79.8 H, Lymphocytes % 6.8 L, Monocytes % 12.9 H, Eosinophils % 0.4, Basophils % 0.1, Absolute Granulocytes 6.4, Absolute Lymphocytes 0.5 L, Absolute Monocytes 1.0 H, Absolute Eosinophils 0, Absolute Basophils 0 12/18/17 2319: CBC w Diff NO MAN DIFF REQ, RBC 2.40 L, MCV 92.8, MCH 30.9, MCHC 33.3, RDW 15.2 H, MPV 6.4 L, Gran % 78.8 H, Lymphocytes % 6.4 L, Monocytes % 14.2 H, Eosinophils % 0.5, Basophils % 0.1, Absolute Granulocytes 6.4, Absolute Lymphocytes 0.5 L, Absolute Monocytes 1.2 H, Absolute Eosinophils 0, Absolute Basophils 0 12/18/17 0942: PT 24.1 H, INR 2.19 H, CBC w Diff NO MAN DIFF REQ, RBC 2.02 L, MCV 93.0, MCH 31.6 H, MCHC 34.0, RDW 15.6 H, MPV 6.7 L, Gran % 82.4 H, Lymphocytes % 4.6 L, Monocytes % 12.6 H, Eosinophils % 0.2, Basophils % 0.2, Absolute Granulocytes 6.5, Absolute Lymphocytes 0.4 L, Absolute Monocytes 1.0 H, Absolute Eosinophils 0, Absolute Basophils 0 12/17/17 0705: PT 14.1 H, INR 1.29 H, CBC w Diff NO MAN DIFF REQ, RBC 2.28 L, MCV 91.4, MCH 31.1 H, MCHC 34.0, RDW 15.0 H, MPV 6.8 L, Gran % 71.6, Lymphocytes % 11.0 L, Monocytes % 14.8 H, Eosinophils % 2.4, Basophils % 0.2, Absolute Granulocytes 4.2, Absolute Lymphocytes 0.6 L, Absolute Monocytes 0.9 H, Absolute Eosinophils 0.1, Absolute Basophils 0 Vital Signs Date Time Temp Pulse Resp B/P B/P Pulse O2 O2 Flow FiO2 Mean Ox Delivery Rate 12/19 1145 98.4 86 20 96/54 97 Nasal 2.0L Cannula 12/19 1110 98.7 12/19 0930 99.6 88 20 92/50 97 Nasal 2.0L Cannula 12/19 0800 Nasal 2.0L Cannula 12/19 0712 100.1 56 20 110/64 94 Nasal 2.0L Cannula 12/19 0000 93 Nasal 2.0L Cannula 12/18 2203 98.9 105 20 110/60 93 Nasal 2.0L Cannula Potassium is 3.3 will replace.
--- NOTE | 2017-12-19 16:23 | ULTRASOUND REPORT ---
EXAMINATION: ULTRASOUND LEFT UPPER EXTREMITY: CLINICAL INFORMATION: Edema and swelling. Assess for DVT TECHNIQUE: Doppler spectral analysis and color flow Doppler imaging was obtained. Compression and augmentation techniques were utilized. COMPARISON: None. FINDINGS: Respiratory variation, normal compression and augmented flow are noted throughout the upper extremity. The visualized internal jugular vein, subclavian vein, axillary vein, cephalic vein, basilic vein, brachial veins, and radial and ulnar veins show no evidence of deep venous thrombosis. There are no focal fluid collections. IMPRESSION: 1. Triplex ultrasound evaluation of the left upper extremity does not demonstrate evidence of deep vein thrombosis. 2. There are no focal fluid collections.
--- NOTE | 2017-12-19 17:02 | CT SCAN REPORT ---
CT ABDOMEN AND PELVIS WITHOUT CONTRAST CLINICAL INFORMATION: Hematoma. Occult bleed. Femoral fracture. COMPARISON: Abdominal CT 12/10/2017. TECHNIQUE: Multidetector volumetric imaging was performed from the superior aspect of the liver through the pubic symphysis. Sagittal and coronal reformatted images were obtained on the technologist's workstation. FINDINGS: Trace left pleural effusion and mild dependent atelectasis. Stable elevation of the left hemidiaphragm. Multiple liver cysts are redemonstrated. Limited evaluation of the unenhanced spleen, adrenal glands, gallbladder, and pancreas reveals no definite abnormality. The kidneys are symmetric in size without evidence of hydronephrosis or nephrolithiasis. The large and small bowel are normal in caliber without evidence of mechanical obstruction. No focal inflammatory changes adjacent to the large or the small bowel. The appendix is normal. There is no free air and there is no intra-abdominal free fluid. No mesenteric or retroperitoneal adenopathy. IVC filter. Decompressed with a Killian catheter in place. No pelvic adenopathy. There are redemonstrated postoperative changes following right hip arthroplasty. While the intramuscular hematoma previously seen within the right iliopsoas muscle has improved, there is new partially imaged large volume hematoma that is in part intramuscular located superior, posterior, and medial to the hip arthroplasty best seen on image 86 through 112 of series 2. This large hematoma is obscured by artifact from the surgical hardware, measuring at least 12 cm in maximal transverse diameter. Intramedullary jaspreet and nail within the proximal left femur again noted. Adjacent bony hyperostosis. Old fractures of the left inferior and superior pubic ramus are again noted. No new acute osseous findings. A few chronic compression deformities within the lumbar spine are stable. IMPRESSION: - There are redemonstrated postoperative changes following right hip arthroplasty. While the intramuscular hematoma previously seen within the right iliopsoas muscle/anterior thigh compartment has improved, there is new partially imaged large volume hematoma that is in part intramuscular located superior, posterior, and medial to the hip arthroplasty best seen on image 86 through 112 of series 2. This large hematoma is obscured by artifact from the surgical hardware, measuring at least 12 cm in maximal transverse diameter. - No additional hematomas. Additional stable chronic findings as described. The covering provider has been paged with these findings at 4:44 PM on 12/19/2017.
--- NOTE | 2017-12-19 18:38 | Event Note ---
Event Note Event Note: Situation; *patient is lethargic having postop hematoma Background: 67-year-old male with past medical history of seizure, CVA in 2007, DVT on warfarin, hypertension, hyperlipidemia, peripheral vascular disease, BPH, hypothyroid, GERD, depression Added admitted in ICU procedure and was intubated He also had a right femur head fracture Surgery done/status post arthroplasty *Patient having dropping H&H *Today HB was 6.4 *CT scan show a new hematoma Assessment: Patient is lethargic He is responding minimaly He is complaining no severe pain, tenderness and right thigh or iliac area Is vitally stable Plan: Surgical P is informed Case discussed with surgical. He conveyed the message to the attending surgeon They recommended that there is no need of intervention at this time We will follow-up on CBC and will transfuse more blood if he needed Will inform the night team Vital monitoring
[2017-12-19 19:46] LABS: ABSOLUTE BASOPHIL COUNT 0 /CUMM (0.0-0.2); ABSOLUTE EOSINOPHIL COUNT 0.1 /CUMM (0.0-0.7); ABSOLUTE GRANULOCYTE CT 6.5 /CUMM (1.4-6.5); ABSOLUTE LYMPH COUNT 0.5 /CUMM (1.2-3.4); ABSOLUTE MONOCYTE COUNT 1.1 /CUMM (0.10-0.60); BASOPHIL % 0.1 % (0.0-2.0); EOSINOPHIL % 0.8 % (0-5); GRANULOCYTE % 79.1 % (42.2-75.2); HEMATOCRIT 24.3 % (42-52); MEAN CORPUSCULAR HGB 30.6 PG (27.0-31.0); MEAN CORPUSCULAR HGB CONC 33.1 G/DL (33.0-37.0); MEAN CORPUSCULAR VOLUME 92.4 FL (80.0-94.0); MEAN PLATELET VOLUME 6.9 FL (7.4-10.4); PLATELET COUNT 213 /CUMM (130-400); RBC DISTRIBUTION WIDTH 15.3 % (11.5-14.5); RED BLOOD CELL CT 2.63 /CUMM (4.70-6.10); WHITE BLOOD CELL COUNT 8.2 /CUMM (4.8-10.8)
[2017-12-19 20:06] VITALS: BP 116/78
--- NOTE | 2017-12-19 23:10 | PN- Orthopedic ---
Surgical Brief Attending Note Brief Attending Note: Orthopaedic consultation requested re: left gluteal region and thigh hematoma as possible explanation for persistent anemia despite numerous transfusions. Attempt made by Dr. Pardo to see patient on: 12/19/2017 @ ~03:00 PM but he was in CT. Danis Pagan is a 67 year old significantly debilitated white male with history of CVA, left sided weakness and neglect and limited walker ambulation who sustained a right femoral neck fracture of uncertain age (likely several weeks) probably following unwitnessed fall from seizure and is now POD #8 S/P right uncemented hemiarthroplasty (12/11/2017, [facility]). He has had significant difficulty with mobilization postoperatively and has not yet been OOB except once (hopefully more but only once that I can see documented) using Jorge lift. Attempts have been documented by PT but patient has required significant assist to get just to the edge of the bed momentarily and has not been able to tolerate any other activity. He has not yet been able to stand even with assistance and so no attempt has yet been made to ambulate. Plan had been for him to go to rehab over weekend but he has been c/o pain, hypersomnolent and persistently anemia without clear cause which has kept him in the hospital. He has now had several units (reportedly in the range of 7) of PRBCs but continues to drift downward. He was 6.6/19.6 this AM. He was started on anticoagulation slightly earlier than per hemiarthroplasty protocol d/t medical indications and this certainly may be contributing to hematoma and anemia. His persistent and recovery limiting hypersomnolence is likely significantly but not solely related to the anemia. Analgesic and other medication may also contribute but it appears that sedating medications have been appropriately limited. His previous CVA obviously predisposes him to hypersomnolence as well particularly after surgery however this should be improving at this point. Patient was not seen today as he was not available due to CT scan. Dopple negative. CT shows hematoma in gluteal and hip region. Thigh not imaged. Hematoma is prominent but not extreme and might explain his anemia to this point but would not necessarily explain his persistent downward trend at this late timepoint and going forward. Assessment and Recommendations: At this point he needs aggressive hematologic resuscitation and transfusion. Recommend transfusion to keep HCT > 30. Attempt to mobilize at least to edge of bed and hopefully to chair with PT and nursing assistance Qd. Mobilize to chair with Jorge lift at least once qd. No intervention likely necessary for hematoma which should not be actively bleeding at this point. Will discuss medical and lesser orthopaedic risks and benefits of anticoagulation but may need to strongly consider holding anticoagulation at least until HCT is stabilized. B WBAT Dressing change qd. Discharge planning to inpatient rehab program once medically stable Limit sedating medication. Limit pain medication to use for mobilization and even then at lowest effective dose to allow mobilization with caution and close monitoring. Minimal effective dose to allow mobililzation may not necessarily be sufficient to relieve subjective report of pain which may require dose that is too sedating and dangerous for patient. Staple removal at approximately 14 days postop. Will discuss with primary medical team in AM.
[2017-12-20 06:54] VITALS: BP 130/80
[2017-12-20 09:15] LABS: ABSOLUTE BASOPHIL COUNT 0 /CUMM (0.0-0.2); ABSOLUTE EOSINOPHIL COUNT 0.1 /CUMM (0.0-0.7); ABSOLUTE LYMPH COUNT 0.5 /CUMM (1.2-3.4); BASOPHIL % 0.2 % (0.0-2.0); EOSINOPHIL % 1.4 % (0-5); GRANULOCYTE % 77.6 % (42.2-75.2); HEMATOCRIT 22.9 % (42-52); MEAN CORPUSCULAR HGB 31.2 PG (27.0-31.0); MEAN CORPUSCULAR VOLUME 91.8 FL (80.0-94.0); MEAN PLATELET VOLUME 6.8 FL (7.4-10.4); PLATELET COUNT 225 /CUMM (130-400); RBC DISTRIBUTION WIDTH 15.5 % (11.5-14.5); WHITE BLOOD CELL COUNT 7.7 /CUMM (4.8-10.8)
--- NOTE | 2017-12-20 10:40 | PN- Att Addend ---
Attending Addendum Attending Brief Note Patient looking a little better today more responsive. Still in bed still complaining of his usual pains. His vital signs are stable no fever. The CAT scan yesterday ordered because of the continuing drop of the hematocrit and hemoglobin showed a new hematoma superior/posterior and medial to the hip arthroplasty. The Coumadin was put on hold. Will monitor his H&H closely transfuse if necessary. And continue close observation Intake & Output 12/20 0400 12/19 0400 12/18 0400 Intake Total 300 700 980 240 120 950 Output Total 282 132 4742 700 1250 Balance -500 550 -370 240 -580 -300 Intake, Blood 350 Product Intake, IV 0 350 Intake, Oral 300 700 630 240 120 600 Number 1 3 Bowel Movements Output, Urine 854 739 4736 700 1250 Patient 241 lb Weight Weight Bed scale Measurement Method Current Medications Sig/Miladis Start time Last Medication Dose Route Stop Time Status Admin Acetaminophen 1,000 MG Q6P PRN 12/11 1100 AC 12/13 N/A 1 UNIT IV 2242 Acetaminophen 500 MG BID PRN 12/07 1415 AC 12/20 PO 0553 Amlodipine Besylate 2.5 MG DAILY 12/08 899 AC 12/20 PO 0856 Artificial Tears 2 GTT 4 TIMES/DAY 12/03 899 AC 12/20 OPH 0857 Aspirin Buffered 81 MG DAILY 12/08 899 AC 12/20 PO 0856 Atorvastatin Calcium 10 MG 1700 12/07 1700 AC 12/19 PO 1707 Divalproex Sodium 750 MG BID 12/08 899 AC 12/20 PO 0856 Docusate Sodium 100 MG BID 12/07 2099 AC 12/20 PO 0856 Erythromycin 1 EVERETT 4 TIMES/DAY 12/04 899 AC 12/19 OPH 2005 Escitalopram Oxalate 20 MG DAILY 12/08 899 AC 12/20 PO 0856 Famotidine 20 MG DAILY 12/08 899 AC 12/20 PO 0856 Furosemide 40 MG BID 12/17 2146 AC 12/20 IV 0857 Lactulose 20 GM BID 12/03 2099 AC 12/20 PO 0857 Levetiracetam 1,000 MG BID 12/17 2099 AC 12/20 PO 0856 Levothyroxine Sodium 0.125 MG DAILY AC 12/08 07 AC 12/20 PO 0549 Linaclotide 290 MCG DAILY 12/02 1515 AC 12/20 PO 0856 Lisinopril 5 MG DAILY 12/08 0900 AC 12/20 PO 0856 Magnesium Hydroxide 30 ML AT BEDTIME PRN 12/03 1815 AC PO Melatonin 3 MG QPM 12/07 2100 AC 12/19 PO 2003 Ondansetron HCl 4 MG Q6P PRN 12/04 1100 AC 12/04 IV 1057 Potassium Chloride 0 .STK-MED ONE 12/19 1708 DC PO Potassium Chloride 40 MEQ ONCE ONE 12/19 1515 DC 12/19 PO 12/19 1516 1707 Senna 187 MG AT BEDTIME 12/02 2100 AC 12/19 PO 2004 Tamsulosin HCl 0.8 MG DAILY 12/08 09 AC 12/20 PO 0855 Warfarin Sodium 5 MG COUMADIN 1700 12/16 1700 DC 12/18 PO 1733 Laboratory Tests 12/20/17 0856: Anion Gap 5, Estimated GFR > 60, BUN/Creatinine Ratio 36.7 H 12/20/17 0820: PT 24.0 H, INR 2.18 H, CBC w Diff NO MAN DIFF REQ, RBC 2.50 L, MCV 91.8, MCH 31.2 H, MCHC 34.0, RDW 15.5 H, MPV 6.8 L, Gran % 77.6 H, Lymphocytes % 7.1 L, Monocytes % 13.7 H, Eosinophils % 1.4, Basophils % 0.2, Absolute Granulocytes 6.0, Absolute Lymphocytes 0.5 L, Absolute Monocytes 1.0 H, Absolute Eosinophils 0.1, Absolute Basophils 0 12/19/171904: CBC w Diff NO MAN DIFF REQ, RBC 2.63 L, MCV 92.4, MCH 30.6, MCHC 33.1, RDW 15.3 H, MPV 6.9 L, Gran % 79.1 H, Lymphocytes % 6.2 L, Monocytes % 13.8 H, Eosinophils % 0.8, Basophils % 0.1, Absolute Granulocytes 6.5, Absolute Lymphocytes 0.5 L, Absolute Monocytes 1.1 H, Absolute Eosinophils 0.1, Absolute Basophils 0 12/19/17 190: CBC w Diff Cancelled, WBC Cancelled, RBC Cancelled, Hgb Cancelled, Hct Cancelled , MCV Cancelled, MCH Cancelled, MCHC Cancelled, RDW Cancelled, Plt Count Cancelled, MPV Cancelled 12/19/17 1013: Anion Gap 4 L, Estimated GFR > 60, BUN/Creatinine Ratio 23.8, Troponin I < 0.01 12/19/17 0710: PT 23.6 H, INR 2.15 H, CBC w Diff NO MAN DIFF REQ, RBC 2.12 L, MCV 92.1, MCH 31.1 H, MCHC 33.7, RDW 15.6 H, MPV 6.7 L, Gran % 79.8 H, Lymphocytes % 6.8 L, Monocytes % 12.9 H, Eosinophils % 0.4, Basophils % 0.1, Absolute Granulocytes 6.4, Absolute Lymphocytes 0.5 L, Absolute Monocytes 1.0 H, Absolute Eosinophils 0, Absolute Basophils 0 12/18/17 2319: CBC w Diff NO MAN DIFF REQ, RBC 2.40 L, MCV 92.8, MCH 30.9, MCHC 33.3, RDW 15.2 H, MPV 6.4 L, Gran % 78.8 H, Lymphocytes % 6.4 L, Monocytes % 14.2 H, Eosinophils % 0.5, Basophils % 0.1, Absolute Granulocytes 6.4, Absolute Lymphocytes 0.5 L, Absolute Monocytes 1.2 H, Absolute Eosinophils 0, Absolute Basophils 0 12/18/17 0942: PT 24.1 H, INR 2.19 H, CBC w Diff NO MAN DIFF REQ, RBC 2.02 L, MCV 93.0, MCH 31.6 H, MCHC 34.0, RDW 15.6 H, MPV 6.7 L, Gran % 82.4 H, Lymphocytes % 4.6 L, Monocytes % 12.6 H, Eosinophils % 0.2, Basophils % 0.2, Absolute Granulocytes 6.5, Absolute Lymphocytes 0.4 L, Absolute Monocytes 1.0 H, Absolute Eosinophils 0, Absolute Basophils 0 Vital Signs Date Time Temp Pulse Resp B/P B/P Pulse O2 O2 Flow FiO2 Mean Ox Delivery Rate 12/20 0856 86 130/80 12/20 0856 86 130/80 12/20 0855 86 130/80 12/20 0654 98.0 86 20 130/80 94 Nasal 2.0L Cannula 12/20 0000 Nasal 2.0L Cannula 12/19 2005 99.2 86 18 116/78 98 Nasal 2.0L Cannula 12/19 1600 Nasal 2.0L Cannula 12/19 1515 99.1 90 20 120/64 97 Nasal 2.0L Cannula 12/19 1145 98.4 86 20 96/54 97 Nasal 2.0L Cannula 12/19 1110 98.7
[2017-12-20 15:39] VITALS: BP 130/70
--- NOTE | 2017-12-20 18:30 | PN- Housestaff ---
Subjective Follow-up For: Acute H&H drop, right femur fracture, hematoma Subjective: Patient seen and examined at bedside. He was enjoying his breakfast. He was oriented in time place person. He denies fever, chills, headache, abdominal pain, diarrhea, constipation, shortness of breath, chest pain, burning micturition Review of Systems Constitutional: Reports: see HPI. Objective Last 24 Hrs of Vital Signs/I&O Vital Signs Date Time Temp Pulse Resp B/P B/P Pulse O2 O2 Flow FiO2 Mean Ox Delivery Rate 12/20 1539 98.6 86 20 130/70 98 12/20 0856 86 130/80 12/20 0856 86 130/80 12/20 0855 86 130/80 12/20 0800 Nasal 2.0L Cannula 12/20 0654 98.0 86 20 130/80 94 Nasal 2.0L Cannula 12/20 0000 Nasal 2.0L Cannula 12/19 2005 99.2 86 18 116/78 98 Nasal 2.0L Cannula Intake & Output 12/20 1600 12/20 0800 12/20 0000 Intake Total 760 300 700 Output Total 1275 800 150 Balance -515 -500 550 Intake, IV 0 Intake, Oral 760 300 700 Number 4 1 Bowel Movements Output, Urine 1275 800 150 Physical Exam General Appearance: Alert, Oriented X3, Cooperative, No Acute Distress HEENT: Atraumatic, PERRLA, EOMI, Mucous Membr. moist/pink Neck: Supple, No JVD, No thryomegaly, +2 Carotid Pulse wo Bruit, No LAD Lymphatic: Axillary nl, Cervical nl Cardiovascular: Regular Rate, Normal S1, Normal S2, No Murmurs Lungs: Normal Air Movement Abdomen: Normal Bowel Sounds, Soft, No Tenderness, No Hepatospenomegaly, No Masses Extremities: bilateral lower extremities swelling pedl edema, left arm swelling Assessment/Plan Assessment: Assessment: 67-year-old male (post seizure, post intubation), shifted from ICU with past medical history of seizures, 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 Problems list: -Right femur neck fracture with a hematoma and anemia -Resolved recurrent persistent seizure -Resolved fever completed 5 days antibiotic course -Resolved sinus tachycardia -Fluid overload - Plan: -Acute H&H drop: Reduce Packed RBC arranged, blood transfusion done today yesterday. We will follow H&H. Yesterday his H&H droped to 6.61 transfusion is done now his HB is 7.8 -1 unit blood transfusion done -CBC orderd at 10 PM, tomorrow a.m. mention in signed out to night team about critical situation of the patient Inputoutput monitoring Vitals monitors -CT abdominal pelvis show new hematoma, -Talked with surgical PA and she further discuss with on-call surgeon -He recommended no intervention-now -Will be observed Fluid overload: *Today the patient having bilateral pedal edema *Scrotal swelling *Strict input output monitoring *Weight monitoring daily *Right femur neck fracture: -Orthopedic consult appreciated *Bandage changed *Orthopedic recommended the patient can move to a chair *PT evaluation done the patient is not able to sit in the bed. *PT on board for further recommend Resolved recurrent persistent seizure: -Seizures medication is continued, he having no more seizures. Hypothyroidism: Patient medication for hypothyroidism is continued. Tablet levothyroxine 2.5 mg daily Hypertension: Patient antihypertensive medication amlodipine 2.5 mg daily is continued. Tablets aspirin 80 mg daily. Hyperlipidemia: Atorvastatin 10 mg daily DVT: -Lovenox continue -Daily INR -Coumadin daily after INR -will keep eyes on his HB and Hct and electrolytes. -vitals monitoring -Patient head will be kept low -DVT prophylaxis -Full code Problem List: 1. CVA 2. Weakness 3. Full code status 4. DVT prophylaxis 5. Right femoral fracture 6. Anemia 7. Seizure disorder 8. History of stroke Pain Ratin Pain Location: No pain Pain Goal: Remain pain free Pain Plan: Pain management pathway Tomorrow's Labs & Rationales: CBCs
[2017-12-20 22:28] VITALS: BP 122/80
--- NOTE | 2017-12-21 05:46 | PN- Orthopedic ---
Surgical Brief Attending Note Brief Attending Note: Orthopaedic 2nd consultation inpatient routine follow-up re: left gluteal region and thigh hematoma Patient seen by Dr. Pardo on: 12/20/2017 @ ~08:00 PM Danis Pagan is a 67 year old significantly debilitated (but limited walker ambulatory) white male with history of CVA, left sided weakness and neglect who is now POD #9 S/P right uncemented hemiarthroplasty (12/11/2017, [facility]) but has been persistently anemic despite multiple transfusions likely due to thigh hematoma although other possible causes for blood loss are being rules out. For details regarding the complexity of his preinjury health status as well as his initial preoperative hospital course requiring ICU care and delay of surgical intervention see previous notes. He had a CT yesterday which included only the hip and suggested a large hematoma which is more prominent than on preop CT but this is not unexpected. The full extent cannot be assessed as the study does not extend into the thigh. Postop hematoma does not appear extreme and might account for persistent and recurrent anemia to this point but should not account for any further blood loss at this point. His anticoagulant has recently been held. As of this AM his HCT may finally be stabilizing. He is still c/o pain in the hip and has been unable to mobilize to stand or to a chair. By report, he has reequired max assist to sit at the edge of the bed and Jorge lift to get to the chair. He has refused mobilization on occasion but recently appears to have beenn more cooperative although not significantly more capable with mobilization. He has been hyperspmnolent which is likely related to his anemia and stroke history. He has now had several units (reportedly in the range of 7) of PRBCs but continued to drift downward until this AM when his HCT appears to have stabilized albeit at a still lower than optimal level. Analgesic and other seadting medication have been appropriately limited. His previous CVA obviously predisposes him to hypersomnolence particularly after surgery and with anemia. Exam: Moderate swelling of hip and thigh region. Not tense. Range of motion of hip tested and quite good with only verbal and essentially no facial grimace manifestations of pain even at the extremes of motion. Dressing CD+I Assessment and Recommendations: At this point he still needs aggressive hematologic resuscitation and transfusion. Strongly recommend transfusion to keep HCT > 30. If fluid overload remains a concern then slow transfusion and fluid management protocols can be optimized for this if necessary but this would indicate even more strongly that transfusion should be initiated early and a stable adequate level (~> 30) be achieved so as to minimize the potential later need for rapid transfusion (and the associated risk) should he have more significant and immediate issues with anemia. Attempt to mobilize at least to edge of bed and hopefully to chair with PT and nursing assistance Qd. Mobilize to chair with Jorge lift at least once qd. Spoke to patient again about the importance of this and he agrees to try and tolerate pain so as to optimize his potential function going forward. No intervention likely necessary for hematoma which should not be actively bleeding at this point. Will discuss medical and lesser orthopaedic risks and benefits of anticoagulation but may need to strongly consider holding anticoagulation at least until HCT is stabilized at a higher level. B WBAT Dressing change qd. Discharge planning to inpatient rehab program once medically stable Limit sedating medication. Limit pain medication to use for mobilization and even then at lowest effective dose to allow mobilization with caution and close monitoring. Minimal effective dose to allow mobililzation may not necessarily be sufficient to relieve subjective report of pain which may require dose that is too sedating and dangerous for patient. Staple removal at approximately 14 days postop. Will again attempt to discuss with primary medical team this AM.
[2017-12-21 06:59] VITALS: BP 130/80
--- NOTE | 2017-12-21 07:02 | PN- Housestaff ---
Subjective Follow-up For: Dropping H&H, right femur fracture Review of Systems Constitutional: Reports: see HPI. Objective Last 24 Hrs of Vital Signs/I&O Vital Signs Date Time Temp Pulse Resp B/P B/P Pulse O2 O2 Flow FiO2 Mean Ox Delivery Rate 12/21 1544 98.6 87 20 120/80 97 12/21 1448 Nasal 2.0L Cannula 12/21 1006 99.8 84 20 130/80 12/21 1006 99.8 84 20 130/80 12/21 1004 99.8 84 20 130/80 12/21 0659 99.8 84 20 130/80 98 12/21 0000 Nasal 2.0L Cannula 12/20 2228 99.5 85 20 122/80 100 Nasal Cannula Intake & Output 12/21 1600 12/21 0800 12/21 0000 Intake Total 400 280 240 Output Total 1200 300 900 Balance -800 -20 -660 Intake, IV 100 Intake, Oral 400 180 240 Number 1 Bowel Movements Output, Urine 1200 300 900 Physical Exam General Appearance: Alert, Oriented X3, Cooperative, No Acute Distress Cardiovascular: Normal S1, Normal S2, No Murmurs Lungs: Clear to Auscultation, Normal Air Movement Abdomen: Normal Bowel Sounds, Soft, No Tenderness, No Hepatospenomegaly, No Masses Extremities: Bilateral pedal and scrotal edema Assessment/Plan Assessment: 67-year-old male (post seizure, post intubation), shifted from ICU with past medical history of seizures, 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 Problems list: -Right femur neck fracture with a hematoma and anemia -Resolved recurrent persistent seizure -Resolved fever completed 5 days antibiotic course -Resolved sinus tachycardia -Fluid overload - Plan: -Acute H&H drop: Reduce Packed RBC arranged, blood transfusion done today yesterday. We will follow H&H. Yesterday his H&H droped to 6.61 transfusion is done now his HB is 7.3 -Please transfuse blood if HB fall below 7 after cross match -CBC orderd at 10 PM, tomorrow a.m. mention in signed out to night team about critical situation of the patient Inputoutput monitoring Vitals monitors -Patient having recent hematoma -He recommended no intervention-now -Will be observed Fluid overload: *Today the patient having bilateral pedal edema *Scrotal swelling *Strict input output monitoring *Weight monitoring daily *Right femur neck fracture: -Orthopedic consult appreciated *Bandage changed *Orthopedic recommended the patient can move to a chair *PT evaluation done the patient is not able to sit in the bed. *PT on board for further recommend *Surgery recommendation appreciated Attempt to mobilize at least to edge of bed and hopefully to chair with PT and nursing assistance Qd. Mobilize to chair with Jorge lift at least once qd. Resolved recurrent persistent seizure: -Seizures medication is continued, he having no more seizures. Hypothyroidism: Patient medication for hypothyroidism is continued. Tablet levothyroxine 2.5 mg daily Hypertension: Patient antihypertensive medication amlodipine 2.5 mg daily is continued. Tablets aspirin 80 mg daily. Hyperlipidemia: Atorvastatin 10 mg daily DVT: -Lovenox continue -Daily INR -Coumadin daily after INR -will keep eyes on his HB and Hct and electrolytes. -vitals monitoring -Patient head will be kept low -DVT prophylaxis -Full code Problem List: 1. Hemiparesis 2. Hypothyroidism 3. Hyperlipidemia 4. BPH 5. Right femoral fracture 6. Anemia 7. History of stroke Pain Ratin Pain Location: No pain today Pain Goal: Remain pain free Pain Plan: Pain management pathway Tomorrow's Labs & Rationales: cbc, BEP, INR
[2017-12-21 09:40] LABS: ABSOLUTE BASOPHIL COUNT 0 /CUMM (0.0-0.2); ABSOLUTE EOSINOPHIL COUNT 0.1 /CUMM (0.0-0.7); ABSOLUTE GRANULOCYTE CT 5.5 /CUMM (1.4-6.5); ABSOLUTE LYMPH COUNT 0.6 /CUMM (1.2-3.4); ABSOLUTE MONOCYTE COUNT 0.8 /CUMM (0.10-0.60); BASOPHIL % 0 % (0.0-2.0); EOSINOPHIL % 1.2 % (0-5); GRANULOCYTE % 79.2 % (42.2-75.2); HEMATOCRIT 22.5 % (42-52); MEAN CORPUSCULAR HGB 31.3 PG (27.0-31.0); MEAN CORPUSCULAR HGB CONC 33.9 G/DL (33.0-37.0); MEAN CORPUSCULAR VOLUME 92.3 FL (80.0-94.0); MEAN PLATELET VOLUME 6.8 FL (7.4-10.4); PLATELET COUNT 211 /CUMM (130-400); RBC DISTRIBUTION WIDTH 15.4 % (11.5-14.5); RED BLOOD CELL CT 2.44 /CUMM (4.70-6.10)
--- NOTE | 2017-12-21 13:14 | PN- Att Addend ---
Attending Addendum Attending Brief Note Little better today. Sat at the edge of the bed with physical therapy for at least 10 minutes. Vital signs are stable temp max 99 8 last hemoglobin 7.6 hematocrit 22.8. No other changes physical. We will continue monitoring closely the hematocrit and hemoglobin and if necessary transfuse. Intake & Output 12/21 1600 12/21 0400 12/20 1600 12/20 0400 12/19 1600 12/19 0400 Intake Total 064 256 2296 700 980 240 Output Total 566 744 2671 150 1350 Balance -20 -660 -1015 550 -370 240 Intake, Blood 350 Product Intake, IV 100 0 0 Intake, Oral 314 649 7309 700 630 240 Number 4 1 3 Bowel Movements Output, Urine 071 971 2540 150 1350 Current Medications Sig/Miladis Start time Last Medication Dose Route Stop Time Status Admin Acetaminophen 0 .STK-MED ONE 12/21 0520 DC IV Acetaminophen 1,000 MG Q6P PRN 12/11 1100 AC 12/21 N/A 1 UNIT IV 0522 Acetaminophen 500 MG BID PRN 12/07 1415 AC 12/20 PO 0553 Amlodipine Besylate 2.5 MG DAILY 12/08 899 AC 12/21 PO 1006 Artificial Tears 2 GTT 4 TIMES/DAY 12/03 09 AC 12/21 OPH 1007 Aspirin Buffered 81 MG DAILY 12/08 09 AC 12/21 PO 1003 Atorvastatin Calcium 10 MG 1700 12/07 1700 AC 12/20 PO 1700 Divalproex Sodium 750 MG BID 12/08 09 AC 12/21 PO 1004 Docusate Sodium 100 MG BID 12/07 PO 1003 Erythromycin 1 EVERETT 4 TIMES/DAY 12/04 09 AC 12/21 OPH 1007 Escitalopram Oxalate 20 MG DAILY 12/08 09 AC 12/21 PO 1005 Famotidine 20 MG DAILY 12/08 09 AC 12/21 PO 1006 Furosemide 40 MG BID 12/17 2146 12/21 IV 1003 Lactulose 20 GM BID 12/03 PO 1003 Levetiracetam 1,000 MG BID 12/17 2100 12/21 PO 1005 Levothyroxine Sodium 0.125 MG DAILY AC 12/08 07 AC 12/21 PO 0522 Linaclotide 290 MCG DAILY 12/02 1515 AC 12/21 PO 1003 Lisinopril 5 MG DAILY 12/08 0900 AC 12/21 PO 1004 Magnesium Hydroxide 30 ML AT BEDTIME PRN 12/03 1815 AC PO Melatonin 3 MG QPM 12/07 2100 AC 12/20 PO 2025 Ondansetron HCl 4 MG Q6P PRN 12/04 1100 AC 12/04 IV 1057 Potassium Chloride 40 MEQ ONCE ONE 12/20 1400 DC 12/20 PO 12/20 1401 1453 Senna 187 MG AT BEDTIME 12/02 2100 AC 12/20 PO 2025 Tamsulosin HCl 0.8 MG DAILY 12/08 0900 AC 12/21 PO 1006 Laboratory Tests 12/21/17 0823: Anion Gap 1 L, Estimated GFR > 60, BUN/Creatinine Ratio 33.3 H, CBC w Diff NO MAN DIFF REQ, RBC 2.44 L, MCV 92.3, MCH 31.3 H, MCHC 33.9, RDW 15.4 H, MPV 6.8 L, Gran % 79.2 H, Lymphocytes % 8.4 L, Monocytes % 11.2 H, Eosinophils % 1.2, Basophils % 0, Absolute Granulocytes 5.5, Absolute Lymphocytes 0.6 L, Absolute Monocytes 0.8 H, Absolute Eosinophils 0.1, Absolute Basophils 0 12/20/17 0856: Anion Gap 5, Estimated GFR > 60, BUN/Creatinine Ratio 36.7 H 12/20/17 0820: PT 24.0 H, INR 2.18 H, CBC w Diff NO MAN DIFF REQ, RBC 2.50 L, MCV 91.8, MCH 31.2 H, MCHC 34.0, RDW 15.5 H, MPV 6.8 L, Gran % 77.6 H, Lymphocytes % 7.1 L, Monocytes % 13.7 H, Eosinophils % 1.4, Basophils % 0.2, Absolute Granulocytes 6.0, Absolute Lymphocytes 0.5 L, Absolute Monocytes 1.0 H, Absolute Eosinophils 0.1, Absolute Basophils 0 12/19/17 1905: CBC w Diff NO MAN DIFF REQ, RBC 2.63 L, MCV 92.4, MCH 30.6, MCHC 33.1, RDW 15.3 H, MPV 6.9 L, Gran % 79.1 H, Lymphocytes % 6.2 L, Monocytes % 13.8 H, Eosinophils % 0.8, Basophils % 0.1, Absolute Granulocytes 6.5, Absolute Lymphocytes 0.5 L, Absolute Monocytes 1.1 H, Absolute Eosinophils 0.1, Absolute Basophils 0 12/19/17 1900: CBC w Diff Cancelled, WBC Cancelled, RBC Cancelled, Hgb Cancelled, Hct Cancelled , MCV Cancelled, MCH Cancelled, MCHC Cancelled, RDW Cancelled, Plt Count Cancelled, MPV Cancelled 12/19/17 1013: Anion Gap 4 L, Estimated GFR > 60, BUN/Creatinine Ratio 23.8, Troponin I < 0.01 12/19/17 0710: PT 23.6 H, INR 2.15 H, CBC w Diff NO MAN DIFF REQ, RBC 2.12 L, MCV 92.1, MCH 31.1 H, MCHC 33.7, RDW 15.6 H, MPV 6.7 L, Gran % 79.8 H, Lymphocytes % 6.8 L, Monocytes % 12.9 H, Eosinophils % 0.4, Basophils % 0.1, Absolute Granulocytes 6.4, Absolute Lymphocytes 0.5 L, Absolute Monocytes 1.0 H, Absolute Eosinophils 0, Absolute Basophils 0 12/18/17 2319: CBC w Diff NO MAN DIFF REQ, RBC 2.40 L, MCV 92.8, MCH 30.9, MCHC 33.3, RDW 15.2 H, MPV 6.4 L, Gran % 78.8 H, Lymphocytes % 6.4 L, Monocytes % 14.2 H, Eosinophils % 0.5, Basophils % 0.1, Absolute Granulocytes 6.4, Absolute Lymphocytes 0.5 L, Absolute Monocytes 1.2 H, Absolute Eosinophils 0, Absolute Basophils 0 Vital Signs Date Time Temp Pulse Resp B/P B/P Pulse O2 O2 Flow FiO2 Mean Ox Delivery Rate 12/21 1006 99.8 84 20 130/80 12/21 1006 99.8 84 20 130/80 12/21 1004 99.8 84 20 130/80 12/21 0659 99.8 84 20 130/80 98 12/21 0000 Nasal 2.0L Cannula 12/208 99.5 85 20 122/80 100 Nasal Cannula 12/20 1539 98.6 86 20 130/70 98
[2017-12-21 15:44] VITALS: BP 120/80
--- NOTE | 2017-12-21 20:45 | PN- Orthopedic ---
Surgical Brief Attending Note Brief Attending Note: Orthopaedic 2nd consultation inpatient routine follow-up re: left gluteal region and thigh hematoma Patient seen by Dr. Pardo on: 12/21/2017 @ ~09:00 AM Danis Pagan is a 67 year old significantly debilitated (but limited walker ambulatory) white male with history of CVA, left sided weakness and neglect who is now POD #10 S/P right uncemented hemiarthroplasty (12/11/2017, [facility]) but has been persistently anemic despite multiple transfusions likely due to surgical site hematoma. Other possible causes for blood loss are still being considered but have largely been ruled out. For details regarding the complexity of his preinjury health status as well as his initial preoperative hospital course requiring ICU care and delay of surgical intervention see previous notes. CT documented surgical region hematoma is not unexpected. There has been no severe swelling or soft tissue tension. This certainly could have accounted for his anemia to this point. The anemia appears to be stabilizing now and this would also be consistent since the operaive site collection would not continue to account for any further decreases. His HCT is now stable. I have spoken to the medical team on several occasions regarding the relative risks and benefits of additional transfusion. They have determined that the risk (particularly regarding volume issues in his debilitated state) outweigh the benefits of improved mobilization and decreased somnolence. I will defer this assessment to the primary team. He is still c/o pain in the hip. By report, he has reequired max assist to sit at the edge of the bed and Jorge lift to get to the chair. He has refused mobilization on occasion but recently appears to have been more cooperative although not significantly more capable with mobilization. He has been less somnolent since his HCT has stabilized and climbed slightly. Analgesic and other seadting medication have been appropriately limited. His previous CVA obviously predisposes him to hypersomnolence particularly after surgery, with medications and with anemia. Exam: Moderate swelling of hip and thigh region. Not tense. Range of motion of hip tested and quite good with only verbal and essentially no facial grimace manifestations of pain even at the extremes of motion. Incision CD+I Assessment and Recommendations: Will defer transfusion decisions to primary medical team as decision not to elevate HCT > 30 is primarily due to medical risk assessment. Would still recommend mobilization at least to edge of bed and hopefully to chair with PT and nursing assistance Qd. Mobilize to chair (even if required by Jorge lift) at least once or twice per day for at least 20-30 minutes each time. Spoke to patient again about the importance of this and he agrees to try and tolerate pain so as to optimize his potential function going forward. No intervention likely necessary for hematoma which should not be actively bleeding at this point. Continue to hold anticoagulation until HCT stable for at least several days and then would retart on a standard (not aggressive) loading protocol to achieve targets over several rather than a few days and thus hopefully minimize hemorrhage risk. B WBAT Dressing change qd. Can leave without dressing at this point if incisional area is kept clean and dry. Discharge planning to inpatient rehab program once medically stable. Limit sedating medication. Limit pain medication to use for mobilization and even then at lowest effective dose to allow mobilization with caution and close monitoring. Minimal effective dose to allow mobililzation would be best. This may not necessarily be sufficient to relieve subjective report of pain but is still optimial in that the higher dose which may be required to address subjective symptoms is likely to be too sedating and dangerous for patient. Staple removal at approximately 14 days postop. If remains stable over next few days, will sign off and follow in office at approximately 6 weeks postop once he has finished rehab or during that stay if it is prolonged.
[2017-12-21 21:00] VITALS: BP 112/70
[2017-12-22 06:51] VITALS: BP 104/66
--- NOTE | 2017-12-22 08:38 | PN- Housestaff ---
Subjective Follow-up For: Dropping H&H, right femur fracture Subjective: Patient seen and examined at bedside this morning. On 2L Nasal cannula saturating well. Patient claims he has back pain but otherwise no acute complaints overnight. He is afebrile with normal vital signs. Hemoglobin is 9.1/ 27.1. No nausea, vomiting, fevers, chills noted. Review of Systems Constitutional: Denies: see HPI. Objective Last 24 Hrs of Vital Signs/I&O Vital Signs Date Time Temp Pulse Resp B/P B/P Pulse O2 O2 Flow FiO2 Mean Ox Delivery Rate 12/22 0810 98.8 75 20 104/66 12/22 0810 98.8 75 20 104/66 12/22 0651 98.8 75 20 93 Nasal 2.0L Cannula 12/22 0000 99 Nasal 2.0L Cannula 12/21 2230 98.3 12/21 2230 98.3 12/21 2131 100.2 12/21 2100 100.2 88 20 112/70 99 Nasal Cannula 12/21 1544 98.6 87 20 120/80 97 12/21 1448 Nasal 2.0L Cannula Intake & Output 12/22 1600 12/22 0800 12/22 0000 Intake Total 50 300 Output Total 550 770 Balance -500 -470 Intake, IV 0 Intake, Oral 50 300 Number 0 2 Bowel Movements Output, Urine 550 770 Physical Exam General Appearance: Alert, Oriented X3, Cooperative, Mild Distress Skin: No Rashes, No Breakdown Cardiovascular: Regular Rate, Normal S1, Normal S2 Lungs: Clear to Auscultation, Normal Air Movement Abdomen: Normal Bowel Sounds, Soft, No Tenderness Extremities: swelling of hip/thigh region dressing CD+I Vascular: Normal Pulses, Pulses Symmetrical Assessment/Plan Assessment: 67-year-old male (post seizure, post intubation), shifted from ICU with past medical history of seizures, 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 Problems list: 1. Right femur neck fracture with a hematoma and anemia 2. Fluid Overload Resolved recurrent persistent seizure Resolved fever completed 5 days antibiotic course Resolved sinus tachycardia PLAN: * Status post rhemiarthroplasty 12/11/2017 recent blood transfusion; recent hematoma * Hold anticoagulation for now given postop hematoma * continue to follow orthopedic surgery recommendations: Attempt to mobilize at least to edge of bed and hopefully to chair with PT and nursing assistance Qd. Mobilize to chair with Jorge lift at least once qd. * Monitor H/H for now * Continue all other medications DVT: Lovenox; OFF Warfarin for NOW Code Status: Full Code Problem List: 1. Seizure 2. Hip fracture Pain Ratin Pain Location: back pain Pain Goal: Pain 4 or less Pain Plan: as per pain pathway Tomorrow's Labs & Rationales: cbc bep
[2017-12-22 08:54] LABS: PT 20.9 SEC (9.4-12.5)
[2017-12-22 09:03] LABS: ABSOLUTE BASOPHIL COUNT 0 /CUMM (0.0-0.2); ABSOLUTE EOSINOPHIL COUNT 0.1 /CUMM (0.0-0.7); ABSOLUTE LYMPH COUNT 0.6 /CUMM (1.2-3.4); ABSOLUTE MONOCYTE COUNT 0.8 /CUMM (0.10-0.60); BASOPHIL % 0.1 % (0.0-2.0); EOSINOPHIL % 1.3 % (0-5); GRANULOCYTE % 79.9 % (42.2-75.2); HEMATOCRIT 27.1 % (42-52); MEAN CORPUSCULAR HGB 31.3 PG (27.0-31.0); MEAN CORPUSCULAR HGB CONC 33.6 G/DL (33.0-37.0); MEAN CORPUSCULAR VOLUME 93.1 FL (80.0-94.0); MEAN PLATELET VOLUME 6.5 FL (7.4-10.4); PLATELET COUNT 224 /CUMM (130-400); RED BLOOD CELL CT 2.91 /CUMM (4.70-6.10); WHITE BLOOD CELL COUNT 7.5 /CUMM (4.8-10.8)
[2017-12-22 15:01] VITALS: BP 108/70
--- NOTE | 2017-12-22 16:19 | PN- Att Addend ---
Attending Addendum Attending Brief Note No new complaints., Patient awake usual aches and pains. Vital signs are stable no fever. No new changes on physical. Will have physical therapy try and get the patient out of bed today. His H&H seems stable. Continue observation today and reassess in the morning. Intake & Output 12/22 1600 12/22 0400 12/21 0400 12/20 1600 12/20 0400 Intake Total 50 300 036 354 3707 700 Output Total 3976 049 0986 900 2075 150 Balance -1600 -470 -560 -660 -1015 550 Intake, IV 0 100 0 Intake, Oral 50 300 975 483 9282 700 Number 0 2 1 4 1 Bowel Movements Output, Urine 5123 197 0256 900 2075 150 Current Medications Sig/Miladis Start time Last Medication Dose Route Stop Time Status Admin Acetaminophen 1,000 MG Q6P PRN 12/11 1100 AC 12/21 N/A 1 UNIT IV 0522 Acetaminophen 500 MG BID PRN 12/07 1415 AC 12/21 PO 2131 Amlodipine Besylate 2.5 MG DAILY 12/08 899 AC 12/22 PO 0810 Artificial Tears 2 GTT 4 TIMES/DAY 12/03 899 AC 12/22 OPH 0812 Aspirin Buffered 81 MG DAILY 12/08 899 AC 12/22 PO 0811 Atorvastatin Calcium 10 MG 1700 12/07 1700 AC 12/21 PO 1738 Divalproex Sodium 750 MG BID 12/08 09 AC 12/22 PO 0811 Docusate Sodium 100 MG BID 12/07 2099 AC 12/22 PO 0811 Erythromycin 1 EVERETT 4 TIMES/DAY 12/04 899 AC 12/22 OPH 0812 Escitalopram Oxalate 20 MG DAILY 12/08 899 AC 12/22 PO 0810 Famotidine 20 MG DAILY 12/08 899 AC 12/22 PO 0810 Furosemide 40 MG BID 12/17 2146 AC 12/22 IV 0809 Lactulose 20 GM BID 12/03 2099 AC 12/22 PO 0811 Levetiracetam 1,000 MG BID 12/17 2099 AC 12/22 PO 0811 Levothyroxine Sodium 0.125 MG DAILY AC 12/08 07 AC 12/22 PO 0703 Linaclotide 290 MCG DAILY 12/02 1515 AC 12/22 PO 0810 Lisinopril 5 MG DAILY 12/08 899 AC 12/22 PO 0810 Magnesium Hydroxide 30 ML AT BEDTIME PRN 12/03 1815 AC PO Melatonin 3 MG QPM 12/07 2099 AC 12/21 PO 212 Ondansetron HCl 4 MG Q6P PRN 12/04 1100 AC 12/04 IV 1057 Senna 187 MG AT BEDTIME 12/02 2099 AC 12/21 PO 2128 Tamsulosin HCl 0.8 MG DAILY 12/08 09 AC 12/22 PO 0810 Laboratory Tests 12/22/17 0748: Anion Gap 3 L, Estimated GFR > 60, BUN/Creatinine Ratio 27.1 H, PT 20.9 H, INR 1.90 H, CBC w Diff NO MAN DIFF REQ, RBC 2.91 L, MCV 93.1, MCH 31.3 H, MCHC 33.6, RDW 15.0 H, MPV 6.5 L, Gran % 79.9 H, Lymphocytes % 8.0 L, Monocytes % 10.7 H, Eosinophils % 1.3, Basophils % 0.1, Absolute Granulocytes 6.0, Absolute Lymphocytes 0.6 L, Absolute Monocytes 0.8 H, Absolute Eosinophils 0.1, Absolute Basophils 0 12/21/17 0823: Anion Gap 1 L, Estimated GFR > 60, BUN/Creatinine Ratio 33.3 H, CBC w Diff NO MAN DIFF REQ, RBC 2.44 L, MCV 92.3, MCH 31.3 H, MCHC 33.9, RDW 15.4 H, MPV 6.8 L, Gran % 79.2 H, Lymphocytes % 8.4 L, Monocytes % 11.2 H, Eosinophils % 1.2, Basophils % 0, Absolute Granulocytes 5.5, Absolute Lymphocytes 0.6 L, Absolute Monocytes 0.8 H, Absolute Eosinophils 0.1, Absolute Basophils 0 12/20/17 0856: Anion Gap 5, Estimated GFR > 60, BUN/Creatinine Ratio 36.7 H 12/20/17 0820: PT 24.0 H, INR 2.18 H, CBC w Diff NO MAN DIFF REQ, RBC 2.50 L, MCV 91.8, MCH 31.2 H, MCHC 34.0, RDW 15.5 H, MPV 6.8 L, Gran % 77.6 H, Lymphocytes % 7.1 L, Monocytes % 13.7 H, Eosinophils % 1.4, Basophils % 0.2, Absolute Granulocytes 6.0, Absolute Lymphocytes 0.5 L, Absolute Monocytes 1.0 H, Absolute Eosinophils 0.1, Absolute Basophils 0 12/19/171904: CBC w Diff NO MAN DIFF REQ, RBC 2.63 L, MCV 92.4, MCH 30.6, MCHC 33.1, RDW 15.3 H, MPV 6.9 L, Gran % 79.1 H, Lymphocytes % 6.2 L, Monocytes % 13.8 H, Eosinophils % 0.8, Basophils % 0.1, Absolute Granulocytes 6.5, Absolute Lymphocytes 0.5 L, Absolute Monocytes 1.1 H, Absolute Eosinophils 0.1, Absolute Basophils 0 12/19/171899: CBC w Diff Cancelled, WBC Cancelled, RBC Cancelled, Hgb Cancelled, Hct Cancelled , MCV Cancelled, MCH Cancelled, MCHC Cancelled, RDW Cancelled, Plt Count Cancelled, MPV Cancelled Vital Signs Date Time Temp Pulse Resp B/P B/P Pulse O2 O2 Flow FiO2 Mean Ox Delivery Rate 12/22 1501 99.3 89 20 108/70 99 Nasal 2.0L Cannula 12/22 0810 98.8 75 20 104/66 12/22 0810 98.8 75 20 104/66 12/22 0651 98.8 75 20 104 93 Nasal 2.0L Cannula 12/22 0000 99 Nasal 2.0L Cannula 12/21 2229 98.3 12/21 2229 98.3 12/21 2130 100.2 12/21 2100 100.2 88 20 112/70 99 Nasal Cannula
[2017-12-22 20:40] VITALS: BP 132/80
[2017-12-23 07:14] VITALS: BP 116/72
--- NOTE | 2017-12-23 07:42 | PN- Housestaff ---
Subjective Follow-up For: Acute H&H drop, right femur fracture Subjective: Patient seen and examined at bedside. He denies fever, chill, constipation, abdominal pain, diarrhea, chest pain, palpitation. Review of Systems Constitutional: Reports: see HPI. Objective Last 24 Hrs of Vital Signs/I&O Vital Signs Date Time Temp Pulse Resp B/P B/P Pulse O2 O2 Flow FiO2 Mean Ox Delivery Rate 12/23 0856 99.0 111 20 116/72 12/23 0956 99.0 111 20 116/72 12/23 0955 99.0 111 20 116/72 12/23 0714 99.0 111 20 116/72 92 09/ 0000 93 Nasal 2.0L Cannula 12/22 2040 99.6 90 24 132/80 93 Nasal Cannula 12/22 1600 99 Nasal 2.0L Cannula 12/22 1501 99.3 89 20 108/70 99 Nasal 2.0L Cannula Intake & Output 12/23 1600 12/23 0800 09 0000 Intake Total 360 570 Output Total 850 1700 Balance -490 -1130 Intake, Oral 360 570 Number 1 Bowel Movements Output, Urine 850 1700 Physical Exam General Appearance: Alert, Oriented X3, Cooperative, No Acute Distress HEENT: Atraumatic, PERRLA, EOMI, Mucous Membr. moist/pink Neck: Supple, No JVD, No thryomegaly Lymphatic: Axillary nl, Cervical nl Cardiovascular: Normal S1, Normal S2 Lungs: Clear to Auscultation, Normal Air Movement Abdomen: Normal Bowel Sounds, Soft, No Tenderness, No Hepatospenomegaly Extremities: No Clubbing, No Cyanosis, No Edema, Normal Pulses, No Tenderness/ Swelling, Testicular edema Assessment/Plan Assessment: 67-year-old male (post seizure, post intubation), shifted from ICU with past medical history of seizures, CVA in 2008 left-sided residual weakness, DVT on Coumadin, hypertension, hyperlipidemia, peripheral vascular disease, hypothyroidism, depression, GERD, BPH, recurrent persistent seizure(responded to valproic acid, intubation on propofol), right femoral neck fracture with mild displacement, acute H&H drop due to tight muscle bleed, hematoma initially presented to emergency department with a complaint of seizure. Problems list: -Right femur neck fracture with a hematoma and anemia -Resolved recurrent persistent seizure -Resolved fever completed 5 days antibiotic course -Resolved sinus tachycardia -Fluid overload - Plan: -Acute H&H drop: Reduce Packed RBC arranged, blood transfusion done today yesterday. We will follow H&H. today H&H is 8.2 -Please transfuse blood if HB fall below 7 after cross match Inputoutput monitoring Vitals monitors -Patient having recent hematoma -He recommended no intervention-now -Will be observed Fluid overload: *Patient bilateral pedal edema subsided but still there is scrotal swelling *Scrotal swelling *Strict input output monitoring *Weight monitoring daily *Right femur neck fracture: -Orthopedic consult appreciated *Bandage changed *Orthopedic recommended the patient can move to a chair *PT evaluation done the patient is not able to sit in the bed. *PT on board for further recommend *Surgery recommendation appreciated Attempt to mobilize at least to edge of bed and hopefully to chair with PT and nursing assistance Qd. Mobilize to chair with Jorge lift at least once qd. Resolved recurrent persistent seizure: -Seizures medication is continued, he having no more seizures. Hypothyroidism: Patient medication for hypothyroidism is continued. Tablet levothyroxine 2.5 mg daily Hypertension: Patient antihypertensive medication amlodipine 2.5 mg daily is continued. Tablets aspirin 80 mg daily. Problem List: 1. Accidental fall 2. Weakness 3. Right femoral fracture 4. Anemia 5. History of stroke Pain Ratin Pain Location: No pain Pain Goal: Remain pain free Pain Plan: Management pathway Tomorrow's Labs & Rationales: CBC
[2017-12-23 10:16] LABS: ABSOLUTE BASOPHIL COUNT 0 /CUMM (0.0-0.2); ABSOLUTE EOSINOPHIL COUNT 0.1 /CUMM (0.0-0.7); ABSOLUTE GRANULOCYTE CT 5.6 /CUMM (1.4-6.5); ABSOLUTE LYMPH COUNT 0.5 /CUMM (1.2-3.4); ABSOLUTE MONOCYTE COUNT 0.7 /CUMM (0.10-0.60); BASOPHIL % 0.1 % (0.0-2.0); EOSINOPHIL % 0.9 % (0-5); GRANULOCYTE % 81.2 % (42.2-75.2); HEMATOCRIT 23.9 % (42-52); MEAN CORPUSCULAR HGB 31.4 PG (27.0-31.0); MEAN CORPUSCULAR HGB CONC 33.7 G/DL (33.0-37.0); MEAN CORPUSCULAR VOLUME 93.1 FL (80.0-94.0); MEAN PLATELET VOLUME 6.4 FL (7.4-10.4); PLATELET COUNT 174 /CUMM (130-400); RBC DISTRIBUTION WIDTH 15.3 % (11.5-14.5); RED BLOOD CELL CT 2.56 /CUMM (4.70-6.10); WHITE BLOOD CELL COUNT 6.8 /CUMM (4.8-10.8)
--- NOTE | 2017-12-23 11:32 | PN- Orthopedic ---
Surgical Brief Attending Note Brief Attending Note: Orthopaedic 2nd consultation inpatient routine follow-up re: left hip surgical region hematoma Patient seen by Dr. Pardo on: 12/22/2017 @ ~06:00 PM Danis Pagan is a 67 year old significantly debilitated (but limited walker ambulatory) white male with history of CVA, left sided weakness and neglect who is now POD #11 S/P right uncemented hemiarthroplasty (12/11/2017, [facility]) but has been persistently anemic despite multiple transfusions likely due to surgical site hematoma. Other possible causes for blood loss are still being considered but have largely been ruled out and his anemia largely stabilized over the last 2 days and is now reversing slowly even without additional transfusion. He is also less somnolent and more communicative. He is taking PO better. He is participating with PT better and to his maaximal tolerance however his tolerance and capability is quite low (both decreased by his preinjury debilitated baseline and further limited by his recent health issues, hip fracture, surgery, postoperative pain, postoperative hematoma and amenia). For details regarding the complexity of his preinjury health status as well as his initial preoperative hospital course requiring ICU care and delay of surgical intervention see previous notes. The hematoma certainly could have accounted for his anemia but should not be an issue going forward. At this point his anemia has stabilized and he has even climbed to a closer to target range without further transfusion. This does not seem to be due to hemoconcentration as he is taking fluids adequately. Therefore, I would agree at this point that, as long as he remains stable and continues to normalize his blood counts, the lesser relative benefits of transfusion may be outweighed by the risks (as determined by the primary medical team). Daily and prn monitoring of H/H is still warranted to confirm that he continues to staabilize and improve as well as to determine the optimal timing for reinitiation of anticoagulation. He is still c/o pain in the hip but seems to be tolerating these subjective symtoms better. He still has no real objective manifestations of significant pain to correlate with his subjective complaints on palpation and firly full motion exam (see below). By report, he has still reequired max assist to sit at the edge of the bed and Jorge lift to get to the chair. He has refused mobilization on occasion but recently appears to have been more cooperative although not significantly more capable with mobilization. He has is much less somnolent today than on previous evaluations now that his HCT has stabilized and climbed noticeably. Analgesic and other sedating medication have been appropriately limited. His previous CVA obviously predisposes him to hypersomnolence particularly after surgery, with medications and with anemia but this seems to be improving back toward his pre- hospitalization baseline. Exam: Moderate swelling of hip and thigh region decreasing steadily. Not tense. No significant (even dependent) ecchymosis suggesting contained hematoma now with slow resorption. Range of motion of hip remains quite good in both directions of all planes with only verbal and essentially no objective manifestations of pain even at the extremes of motion. Incision CD+I. Assessment and Recommendations: No further transfusion recommended as long as his HCT continues to climb and relative anemia no longer appears to be the cause of any somnolence limiting mobilization. Continue to monitor H/H daily. No change in recommendations for mobilization, discharge planning. Return to all other postoperative protocols (albeit adjusted for his limited pre- hospitalization functional status and now somewhat delayed due to his slow mobilization capability). No intervention likely necessary for hematoma which should not be actively bleeding at this point. Continue to hold anticoagulation until HCT stable for at least another 2 days and then would retart on a standard (not aggressive) loading protocol to achieve targets over 3-4 rather than a 1-2 days and thus hopefully minimize hemorrhage risk. All other recommendations remain unchanged. See last note for details. If remains stable tomorrow, will sign off and follow in office at approximately 6 weeks postop once he has finished rehab or during that stay if it is prolonged.
--- NOTE | 2017-12-23 13:20 | PN- Att Addend ---
Attending Addendum Attending Brief Note Patient looking a little better. His appetite is a little improved nurses aide feeding him. Temp max 99 6. All the rest of the vital signs are stable. No new changes on physical examination. Last hemoglobin 8.1 hematocrit 23.9. Continue present treatment and monitoring his H&H closely. Intake & Output 12/23 1600 12/23 0400 12/22 1600 12/22 0400 12/21 1600 12/21 0400 Intake Total 360 450 170 300 940 240 Output Total 455 910 5279 770 1500 900 Balance -490 -450 -2280 -470 -560 -660 Intake, IV 0 100 Intake, Oral 360 450 170 300 840 240 Number 1 0 2 1 Bowel Movements Output, Urine 305 101 7700 770 1500 900 Current Medications Sig/Miladis Start time Last Medication Dose Route Stop Time Status Admin Acetaminophen 1,000 MG Q6P PRN 12/11 1100 AC 12/21 N/A 1 UNIT IV 0522 Acetaminophen 500 MG BID PRN 12/07 1415 AC 12/23 PO 0957 Amlodipine Besylate 2.5 MG DAILY 12/08 899 AC 12/23 PO 0956 Artificial Tears 2 GTT 4 TIMES/DAY 12/03 899 AC 12/23 OPH 0957 Aspirin Buffered 81 MG DAILY 12/08 899 AC 12/23 PO 0954 Atorvastatin Calcium 10 MG 1700 12/07 1700 AC 12/22 PO 1709 Divalproex Sodium 750 MG BID 12/08 899 AC 12/23 PO 0954 Docusate Sodium 100 MG BID 12/07 2099 AC 12/23 PO 0954 Erythromycin 1 EVERETT 4 TIMES/DAY 12/04 899 AC 12/23 OPH 0957 Escitalopram Oxalate 20 MG DAILY 12/08 899 AC 12/23 PO 0956 Famotidine 20 MG DAILY 12/08 899 AC 12/23 PO 0956 Furosemide 40 MG BID 12/17 2146 AC 12/23 IV 0955 Lactulose 20 GM BID 12/03 2099 AC 12/23 PO 0954 Levetiracetam 1,000 MG BID 12/17 2099 AC 12/23 PO 0955 Levothyroxine Sodium 0.125 MG DAILY AC 12/08 699 AC 12/23 PO 0523 Linaclotide 290 MCG DAILY 12/02 1515 AC 12/23 PO 0956 Lisinopril 5 MG DAILY 12/08 899 AC 12/23 PO 0956 Magnesium Hydroxide 30 ML AT BEDTIME PRN 12/03 1815 AC PO Melatonin 3 MG QPM 12/07 2100 AC 12/22 PO 2030 Ondansetron HCl 4 MG Q6P PRN 12/04 1100 AC 12/04 IV 1057 Oxycodone HCl 5 MG Q6P PRN 12/23 0900 AC 12/23 PO 0957 Senna 187 MG AT BEDTIME 12/02 2100 AC 12/22 PO 2030 Tamsulosin HCl 0.8 MG DAILY 12/08 899 AC 12/23 PO 0955 Laboratory Tests 12/23/17 0915: Anion Gap 2 L, Estimated GFR > 60, BUN/Creatinine Ratio 35.0 H, CBC w Diff NO MAN DIFF REQ, RBC 2.56 L, MCV 93.1, MCH 31.4 H, MCHC 33.7, RDW 15.3 H, MPV 6.4 L, Gran % 81.2 H, Lymphocytes % 8.0 L, Monocytes % 9.8 H, Eosinophils % 0.9, Basophils % 0.1, Absolute Granulocytes 5.6, Absolute Lymphocytes 0.5 L, Absolute Monocytes 0.7 H, Absolute Eosinophils 0.1, Absolute Basophils 0 12/22/17 0748: Anion Gap 3 L, Estimated GFR > 60, BUN/Creatinine Ratio 27.1 H, PT 20.9 H, INR 1.90 H, CBC w Diff NO MAN DIFF REQ, RBC 2.91 L, MCV 93.1, MCH 31.3 H, MCHC 33.6, RDW 15.0 H, MPV 6.5 L, Gran % 79.9 H, Lymphocytes % 8.0 L, Monocytes % 10.7 H, Eosinophils % 1.3, Basophils % 0.1, Absolute Granulocytes 6.0, Absolute Lymphocytes 0.6 L, Absolute Monocytes 0.8 H, Absolute Eosinophils 0.1, Absolute Basophils 0 12/21/17 0823: Anion Gap 1 L, Estimated GFR > 60, BUN/Creatinine Ratio 33.3 H, CBC w Diff NO MAN DIFF REQ, RBC 2.44 L, MCV 92.3, MCH 31.3 H, MCHC 33.9, RDW 15.4 H, MPV 6.8 L, Gran % 79.2 H, Lymphocytes % 8.4 L, Monocytes % 11.2 H, Eosinophils % 1.2, Basophils % 0, Absolute Granulocytes 5.5, Absolute Lymphocytes 0.6 L, Absolute Monocytes 0.8 H, Absolute Eosinophils 0.1, Absolute Basophils 0 Vital Signs Date Time Temp Pulse Resp B/P B/P Pulse O2 O2 Flow FiO2 Mean Ox Delivery Rate 12/23 0956 99.0 111 12/23 0956 99.0 111 12/23 0955 99.0 111 12/23 0714 99.0 111 92 12/23 0000 93 Nasal 2.0L Cannula 12/22 2040 99.6 90 24 132/80 93 Nasal Cannula 12/22 1600 99 Nasal 2.0L Cannula 12/22 1501 99.3 89 20 108/70 99 Nasal 2.0L Cannula
[2017-12-23 13:41] VITALS: BP 120/80
[2017-12-23 22:23] VITALS: BP 104/70
--- NOTE | 2017-12-24 04:37 | Event Note ---
Event Note Event Note: S: At 4:30 am, a rapid response was called by the nurse checking vitals. She noted a HR of 200 and a Pulse ox in the 80s. B: Mr. 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 A:Pt was found to be febrile, with a temp of 102.4. 93 % saturation on 2 L oxygen. Pt responded to commands. On examination: S1, S2, no added sounds; lungs CTA; GIT NT, ND. R: It was a false rapid alarm, because of incorrect initial vitals on defective vitals cart. Upon repeating vitals, his vitals were stable except for a fever, so blood cultures were ordered & IV tylenol was given.
[2017-12-24 05:51] VITALS: BP 120/70
[2017-12-24 07:49] LABS: ABSOLUTE BASOPHIL COUNT 0 /CUMM (0.0-0.2); ABSOLUTE EOSINOPHIL COUNT 0 /CUMM (0.0-0.7); ABSOLUTE GRANULOCYTE CT 10.7 /CUMM (1.4-6.5); ABSOLUTE LYMPH COUNT 0.6 /CUMM (1.2-3.4); ABSOLUTE MONOCYTE COUNT 0.9 /CUMM (0.10-0.60); BASOPHIL % 0.1 % (0.0-2.0); EOSINOPHIL % 0.2 % (0-5); GRANULOCYTE % 87.7 % (42.2-75.2); HEMATOCRIT 24.6 % (42-52); MEAN CORPUSCULAR HGB CONC 33.4 G/DL (33.0-37.0); MEAN PLATELET VOLUME 6.3 FL (7.4-10.4); PLATELET COUNT 172 /CUMM (130-400); RBC DISTRIBUTION WIDTH 15.1 % (11.5-14.5); RED BLOOD CELL CT 2.65 /CUMM (4.70-6.10)
[2017-12-24 08:40] LABS: WHITE BLOOD CELL COUNT 12.2 /CUMM (4.8-10.8)
--- NOTE | 2017-12-24 09:26 | PN- Housestaff ---
Subjective Follow-up For: Right femur hip fracture, dropping H&H Subjective: Patient seen and examined at bedside. He was oriented in time place person. He denies chest pain, palpitation, abdominal pain, diarrhea, constipation. He one episode of fever last night. Review of Systems Constitutional: Reports: see HPI. Objective Last 24 Hrs of Vital Signs/I&O Vital Signs Date Time Temp Pulse Resp B/P B/P Pulse O2 O2 Flow FiO2 Mean Ox Delivery Rate 12/24 0957 80 118/80 12/24 0956 80 118/80 12/24 0956 80 118/80 12/24 0800 97.6 12/24 0800 Nasal 2.0L Cannula 12/24 0608 100.1 12/24 0551 102.4 94 16 120/70 93 Nasal 2.0L Cannula 12/24 0443 102.4 12/24 0435 93 Nasal 2.0L Cannula 12/24 0000 93 Nasal 2.0L Cannula 12/23 2223 99.1 88 20 104/70 93 12/23 1600 97 Nasal 2.0L Cannula Intake & Output 12/24 1600 12/24 0800 12/24 0000 Intake Total 480 450 Output Total 750 650 400 Balance -750 -170 50 Intake, Oral 480 450 Number 1 Bowel Movements Output, Urine 750 650 400 Physical Exam General Appearance: Alert, Oriented X3, Cooperative, No Acute Distress HEENT: Atraumatic, PERRLA, EOMI, Mucous Membr. moist/pink Cardiovascular: Normal S1, Normal S2 Lungs: Clear to Auscultation, Normal Air Movement, Mild decrease entery bilateraly Abdomen: Normal Bowel Sounds, Soft, No Tenderness Extremities: No Edema, Scrotal edema Assessment/Plan Assessment: 67-year-old male (post seizure, post intubation), shifted from ICU with past medical history of seizures, 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 Problems list: -Right femur neck fracture with a hematoma and anemia -Resolved recurrent persistent seizure -Resolved fever completed 5 days antibiotic course -Resolved sinus tachycardia -Fluid overload -Leukocytosis/temperature spike - Plan: -Acute H&H drop: Reduce Packed RBC arranged, blood transfusion done today yesterday. We will follow H&H. today H&H is 8.2 -Please transfuse blood if HB fall below 7 after cross match Inputoutput monitoring Vitals monitors -Patient having recent hematoma -He recommended no intervention-now -Will be observed *Leukocytosis/temperature spike: -Last night the patient having temperature spike of 100 -Blood culture, urine culture, urinalysis, chest x-ray -We will follow the report -We will start antibiotic accordingly Fluid overload: *Patient bilateral pedal edema subsided but still there is scrotal swelling *Scrotal swelling *Strict input output monitoring *Weight monitoring daily *Right femur neck fracture: -Orthopedic consult appreciated *Bandage changed *Orthopedic recommended the patient can move to a chair *PT evaluation done the patient is not able to sit in the bed. *PT on board for further recommend *Surgery recommendation appreciated Attempt to mobilize at least to edge of bed and hopefully to chair with PT and nursing assistance Qd. Mobilize to chair with Jorge lift at least once qd. Resolved recurrent persistent seizure: -Seizures medication is continued, he having no more seizures. Hypothyroidism: Patient medication for hypothyroidism is continued. Tablet levothyroxine 2.5 mg daily Hypertension: Patient antihypertensive medication amlodipine 2.5 mg daily is continued. Tablets aspirin 80 mg daily. Problem List: 1. BPH 2. CVA 3. Anemia 4. Right femoral fracture 5. History of stroke 6. Fall at home Pain Ratin Pain Location: No pain Pain Goal: Remain pain free Pain Plan: Pain management pathway Tomorrow's Labs & Rationales: cbc,bep.
--- NOTE | 2017-12-24 13:37 | PN- Att Addend ---
Attending Addendum Attending Brief Note Very sedentary, refused to get up at the age of the bed today, appetite is poor. Temp max 102.4, patient was recultured. No other changes on physical WBCs 12,200 today, hemoglobin 8.2 hematocrit 24.6. Will continue to monitor follow-up labs follow up the cultures and treat accordingly Intake & Output 12/24 1600 12/24 0400 12/23 1600 12/23 0400 12/22 1600 12/22 0400 Intake Total 480 450 780 450 170 300 Output Total 5843 560 0020 900 2450 770 Balance -920 50 -1470 -450 -2280 -470 Intake, IV 0 Intake, Oral 480 450 780 450 170 300 Number 1 1 0 2 Bowel Movements Output, Urine 0898 776 5069 900 2450 770 Current Medications Sig/Miladis Start time Last Medication Dose Route Stop Time Status Admin Acetaminophen 1,000 MG Q6P PRN 12/11 1100 AC 12/21 N/A 1 UNIT IV 0522 Acetaminophen 500 MG BID PRN 12/07 1415 AC 12/24 PO 0443 Amlodipine Besylate 2.5 MG DAILY 12/08 899 AC 12/24 PO 0956 Artificial Tears 2 GTT 4 TIMES/DAY 12/03 899 AC 12/24 OPH 0957 Aspirin Buffered 81 MG DAILY 12/08 899 AC 12/24 PO 0957 Atorvastatin Calcium 10 MG 1700 12/07 1700 AC 12/23 PO 1726 Divalproex Sodium 750 MG BID 12/08 899 AC 12/24 PO 0957 Docusate Sodium 100 MG BID 12/07 2099 AC 12/24 PO 0957 Erythromycin 1 EVERETT 4 TIMES/DAY 12/04 899 AC 12/24 OPH 0957 Escitalopram Oxalate 20 MG DAILY 12/08 899 AC 12/24 PO 0956 Famotidine 20 MG DAILY 12/08 899 AC 12/24 PO 0956 Furosemide 40 MG BID 12/17 2146 AC 12/24 IV 0954 Lactulose 20 GM BID 12/03 2099 AC 12/24 PO 0954 Levetiracetam 1,000 MG BID 12/17 2099 AC 12/24 PO 0956 Levothyroxine Sodium 0.125 MG DAILY AC 12/08 07 AC 12/24 PO 0506 Linaclotide 290 MCG DAILY 12/02 1515 AC 12/24 PO 0954 Lisinopril 5 MG DAILY 12/08 899 AC 12/24 PO 0956 Magnesium Hydroxide 30 ML AT BEDTIME PRN 12/03 1815 AC PO Melatonin 3 MG QPM 12/07 2100 AC 12/23 PO 2048 Ondansetron HCl 4 MG Q6P PRN 12/04 1100 AC 12/04 IV 1057 Oxycodone HCl 5 MG Q6P PRN 12/23 0900 AC 12/23 PO 0957 Senna 187 MG AT BEDTIME 12/02 2100 AC 12/23 PO 2048 Senna/Docusate Sodium 0 .STK-MED ONE 12/23 2038 SC PO Tamsulosin HCl 0.8 MG DAILY 12/08 899 AC 12/24 PO 0957 Laboratory Tests 12/24/17 1102: Urine Color STRAW, Urine Clarity HAZY H, Urine pH 6.5, Ur Specific [place] 1.015, Urine Protein NEG, Urine Ketones NEG, Urine Nitrite POS H, Urine Bilirubin NEG, Urine Urobilinogen 1.0, Ur Leukocyte Esterase MOD H, Ur Microscopic SEDIMENT EXAMINED, Urine RBC RARE, Urine WBC 25-50 H, Ur Epithelial Cells RARE, Urine Bacteria MANY H, Urine Hemoglobin TRACE-INTACT H, Urine Glucose NEG 12/24/17 0647: CBC w Diff NO MAN DIFF REQ, RBC 2.65 L, MCV 93.0, MCH 31.0, MCHC 33.4, RDW 15.1 H, MPV 6.3 L, Gran % 87.7 H, Lymphocytes % 4.9 L, Monocytes % 7.1, Eosinophils % 0.2, Basophils % 0.1, Absolute Granulocytes 10.7 H, Absolute Lymphocytes 0.6 L, Absolute Monocytes 0.9 H, Absolute Eosinophils 0, Absolute Basophils 0 12/23/17 0915: Anion Gap 2 L, Estimated GFR > 60, BUN/Creatinine Ratio 35.0 H, CBC w Diff NO MAN DIFF REQ, RBC 2.56 L, MCV 93.1, MCH 31.4 H, MCHC 33.7, RDW 15.3 H, MPV 6.4 L, Gran % 81.2 H, Lymphocytes % 8.0 L, Monocytes % 9.8 H, Eosinophils % 0.9, Basophils % 0.1, Absolute Granulocytes 5.6, Absolute Lymphocytes 0.5 L, Absolute Monocytes 0.7 H, Absolute Eosinophils 0.1, Absolute Basophils 0 12/22/17 0748: Anion Gap 3 L, Estimated GFR > 60, BUN/Creatinine Ratio 27.1 H, PT 20.9 H, INR 1.90 H, CBC w Diff NO MAN DIFF REQ, RBC 2.91 L, MCV 93.1, MCH 31.3 H, MCHC 33.6, RDW 15.0 H, MPV 6.5 L, Gran % 79.9 H, Lymphocytes % 8.0 L, Monocytes % 10.7 H, Eosinophils % 1.3, Basophils % 0.1, Absolute Granulocytes 6.0, Absolute Lymphocytes 0.6 L, Absolute Monocytes 0.8 H, Absolute Eosinophils 0.1, Absolute Basophils 0 Microbiology 12/24 120 URINE ROUT: Urine Culture - RECD 12/24 050 BLOOD: Blood Culture - RECD 12/24 044 BLOOD: Blood Culture - RECD Microbiology 12/24 1202 URINE ROUT: Urine Culture - RECD 12/24 050 BLOOD: Blood Culture - RECD 12/25 439 BLOOD: Blood Culture - RECD Vital Signs Date Time Temp Pulse Resp B/P B/P Pulse O2 O2 Flow FiO2 Mean Ox Delivery Rate 12/24 0957 80 118/80 12/24 0956 80 118/80 12/24 0956 80 118/80 12/24 0800 97.6 12/24 0800 Nasal 2.0L Cannula 12/24 0608 100.1 12/24 0551 102.4 94 16 120/70 93 Nasal 2.0L Cannula 12/24 0443 102.4 12/24 0435 93 Nasal 2.0L Cannula 12/24 0000 93 Nasal 2.0L Cannula 12/23 2223 99.1 88 20 104/70 93 12/23 1600 97 Nasal 2.0L Cannula 12/23 1341 98.8 82 20 120/80 97 Nasal 2.0L Cannula
--- NOTE | 2017-12-24 14:24 | RADIOLOGY REPORT ---
EXAMINATION: XR PORTABLE CHEST CLINICAL INFORMATION: Fever, leukocytosis COMPARISON: Multiple prior chest radiographs including 05/19/2011, 03/19/2017 and 12/04/2017. TECHNIQUE: Portable AP 85 degree upright view of the chest was obtained. FINDINGS: Since the prior chest radiograph, the patient has been extubated. The lung volumes remain markedly decreased with chronic elevation of the left hemidiaphragm. A few increased markings are seen at the left lung base unchanged without focal consolidation or atelectasis. The cardiac silhouette is prominent but difficult to evaluate due to the degree of inspiration. IMPRESSION: Low lung volumes. Minimal atelectasis is present at the left lung base. No significant change. Chronic elevation of the left hemidiaphragm.
[2017-12-24 14:56] VITALS: BP 117/66
[2017-12-24 20:45] VITALS: BP 118/72
[2017-12-25 06:43] VITALS: BP 112/66
--- NOTE | 2017-12-25 06:53 | PN- Housestaff ---
Subjective Follow-up For: Dropping H&H, right femur fracture Subjective: Patient seen and examined at bedside. He denies fever, chill, diarrhea, abdominal pain, chest palpitation, burning micturition. Review of Systems Constitutional: Reports: see HPI. Objective Last 24 Hrs of Vital Signs/I&O Vital Signs Date Time Temp Pulse Resp B/P B/P Pulse O2 O2 Flow FiO2 Mean Ox Delivery Rate 12/25 0852 88 126/78 12/25 0851 88 126/78 12/25 0851 88 126/78 12/25 0800 Nasal 2.0L Cannula 12/25 0643 98.3 87 20 112/66 92 / 0000 96 Nasal 2.0L Cannula 12/24 2045 98.9 82 20 118/72 96 Nasal 2.0L Cannula 12/24 1600 Nasal 2.0L Cannula 12/24 1456 97.9 87 18 117/66 100 Nasal Cannula Intake & Output 12/25 1600 12/25 0800 12/25 0000 Intake Total 100 Output Total 261 874 3284 Balance -750 -450 -1050 Intake, Oral 100 Number 1 2 Bowel Movements Output, Urine 916 734 8263 Physical Exam General Appearance: Alert, Oriented X3, Cooperative, No Acute Distress Lungs: Clear to Auscultation, lEFT SIDE DECREASE AIR ENTERY ON BASE Abdomen: Normal Bowel Sounds, Soft, No Tenderness Extremities: No Clubbing, No Cyanosis, No Edema Assessment/Plan Assessment: 67-year-old male (post seizure, post intubation), shifted from ICU with past medical history of seizures, 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 Problems list: -Right femur neck fracture with a hematoma and anemia -Resolved recurrent persistent seizure -Resolved fever completed 5 days antibiotic course -Resolved sinus tachycardia -Fluid overload -Leukocytosis/temperature spike - Plan: -Acute H&H drop: Reduce Packed RBC arranged, blood transfusion done today yesterday. We will follow H&H. today H&H is 7.6 -Please transfuse blood if HB fall below 7 after cross match Inputoutput monitoring Vitals monitors -Patient having recent hematoma -He recommended no intervention-now -Will be observed *Leukocytosis/temperature spike: -Last night the patient having temperature spike of 100F - urine culture grew gram-negative jaspreet -Unasyn 1000 mg IV for 3 discontinued -Blood culture negative for day 1, secondary culture is pending Fluid overload: *Patient bilateral pedal edema subsided but still there is scrotal swelling *Strict input output monitoring *Weight monitoring daily *Right femur neck fracture: -Orthopedic consult appreciated *Bandage changed *Orthopedic recommended the patient can move to a chair *PT evaluation done the patient is not able to sit in the bed. *PT on board for further recommend *Surgery recommendation appreciated Attempt to mobilize at least to edge of bed and hopefully to chair with PT and nursing assistance Qd. Mobilize to chair with Jorge lift at least once qd. Resolved recurrent persistent seizure: -Seizures medication is continued, he having no more seizures. Hypothyroidism: Patient medication for hypothyroidism is continued. Tablet levothyroxine 2.5 mg daily Hypertension: Patient antihypertensive medication amlodipine 2.5 mg daily is continued. Tablets aspirin 80 mg daily. *Anticipated discharge tomorrow Problem List: 1. Right femoral fracture 2. Anemia 3. History of stroke 4. Fall at home 5. BPH 6. Full code status 7. Weakness 8. Hypothyroidism Pain Ratin Pain Location: No pain Pain Goal: Remain pain free Pain Plan: Pain management pathway Tomorrow's Labs & Rationales: cbc
[2017-12-25 07:51] LABS: ABSOLUTE BASOPHIL COUNT 0 /CUMM (0.0-0.2); ABSOLUTE EOSINOPHIL COUNT 0.1 /CUMM (0.0-0.7); ABSOLUTE GRANULOCYTE CT 5.6 /CUMM (1.4-6.5); ABSOLUTE LYMPH COUNT 0.6 /CUMM (1.2-3.4); ABSOLUTE MONOCYTE COUNT 0.6 /CUMM (0.10-0.60); BASOPHIL % 0 % (0.0-2.0); EOSINOPHIL % 0.9 % (0-5); GRANULOCYTE % 81.4 % (42.2-75.2); HEMATOCRIT 22.5 % (42-52); MEAN CORPUSCULAR HGB 31.3 PG (27.0-31.0); MEAN CORPUSCULAR HGB CONC 33.7 G/DL (33.0-37.0); MEAN PLATELET VOLUME 6.9 FL (7.4-10.4); PLATELET COUNT 158 /CUMM (130-400); RBC DISTRIBUTION WIDTH 15.3 % (11.5-14.5); RED BLOOD CELL CT 2.41 /CUMM (4.70-6.10); WHITE BLOOD CELL COUNT 6.9 /CUMM (4.8-10.8)
--- NOTE | 2017-12-25 09:57 | PN- Att Addend ---
Attending Addendum Attending Brief Note no new issues. Vital signs stable no fever, no new changes on physical Hg. 7,6 Hct 22.5. Start disposition plans. Intake & Output 12/25 1600 12/25 0400 12/24 1600 12/24 04012/23 040 Intake Total 100 1210 450 780 570 Output Total 550 1050 4292 210 9982 1700 Balance -450 -1050 -290 50 -1470 -1130 Intake, IV 10 Intake, Oral 100 1200 450 780 570 Number 1 2 1 1 Bowel Movements Output, Urine 550 1050 4529 672 2652 1700 Current Medications Sig/Miladis Start time Last Medication Dose Route Stop Time Status Admin Acetaminophen 1,000 MG Q6P PRN 12/11 1100 AC 12/21 N/A 1 UNIT IV 0522 Acetaminophen 500 MG BID PRN 12/07 1415 AC 12/24 PO 0443 Amlodipine Besylate 2.5 MG DAILY 12/08 09 AC 12/25 PO 0851 Artificial Tears 2 GTT 4 TIMES/DAY 12/03 899 AC 12/25 OPH 0857 Aspirin Buffered 81 MG DAILY 12/08 09 AC 12/25 PO 0852 Atorvastatin Calcium 10 MG 1700 12/07 1700 AC 12/24 PO 1822 Divalproex Sodium 750 MG BID 12/08 09 AC 12/25 PO 0852 Docusate Sodium 100 MG BID 12/07 2099 AC 12/24 PO 202 Erythromycin 1 EVERETT 4 TIMES/DAY 12/04 0900 AC 12/25 OPH 0857 Escitalopram Oxalate 20 MG DAILY 12/08 899 AC 12/25 PO 0851 Famotidine 20 MG DAILY 12/08 09 AC 12/25 PO 0851 Furosemide 40 MG BID 12/17 2146 AC 12/25 IV 0853 Lactulose 20 GM BID 12/03 2100 AC 12/24 PO 202 Levetiracetam 1,000 MG BID 12/17 2099 AC 12/25 PO 0852 Levothyroxine Sodium 0.125 MG DAILY AC 12/08 07 AC 12/25 PO 0626 Linaclotide 290 MCG DAILY 12/02 1515 AC 12/25 PO 0853 Lisinopril 5 MG DAILY 12/08 899 AC 12/25 PO 0851 Magnesium Hydroxide 30 ML AT BEDTIME PRN 12/03 1815 AC PO Melatonin 3 MG QPM 12/07 2099 AC 12/24 PO 202 Ondansetron HCl 4 MG Q6P PRN 12/04 1100 AC 12/04 IV 1057 Oxycodone HCl 5 MG Q6P PRN 12/23 0900 AC 12/25 PO 914 Senna 187 MG AT BEDTIME 12/02 2100 AC 12/24 PO 2025 Tamsulosin HCl 0.8 MG DAILY 12/08 899 AC 12/25 PO 0852 Laboratory Tests 12/25/17 0710: Anion Gap 2 L, Estimated GFR > 60, BUN/Creatinine Ratio 30.0 H, CBC w Diff NO MAN DIFF REQ, RBC 2.41 L, MCV 93.0, MCH 31.3 H, MCHC 33.7, RDW 15.3 H, MPV 6.9 L, Gran % 81.4 H, Lymphocytes % 8.8 L, Monocytes % 8.9, Eosinophils % 0.9 , Basophils % 0, Absolute Granulocytes 5.6, Absolute Lymphocytes 0.6 L, Absolute Monocytes 0.6, Absolute Eosinophils 0.1, Absolute Basophils 0 12/24/17 1102: Urine Color STRAW, Urine Clarity HAZY H, Urine pH 6.5, Ur Specific [place] 1.015, Urine Protein NEG, Urine Ketones NEG, Urine Nitrite POS H, Urine Bilirubin NEG, Urine Urobilinogen 1.0, Ur Leukocyte Esterase MOD H, Ur Microscopic SEDIMENT EXAMINED, Urine RBC RARE, Urine WBC 25-50 H, Ur Epithelial Cells RARE, Urine Bacteria MANY H, Urine Hemoglobin TRACE-INTACT H, Urine Glucose NEG 12/24/17 0647: CBC w Diff NO MAN DIFF REQ, RBC 2.65 L, MCV 93.0, MCH 31.0, MCHC 33.4, RDW 15.1 H, MPV 6.3 L, Gran % 87.7 H, Lymphocytes % 4.9 L, Monocytes % 7.1, Eosinophils % 0.2, Basophils % 0.1, Absolute Granulocytes 10.7 H, Absolute Lymphocytes 0.6 L, Absolute Monocytes 0.9 H, Absolute Eosinophils 0, Absolute Basophils 0 12/23/17 0915: Anion Gap 2 L, Estimated GFR > 60, BUN/Creatinine Ratio 35.0 H, CBC w Diff NO MAN DIFF REQ, RBC 2.56 L, MCV 93.1, MCH 31.4 H, MCHC 33.7, RDW 15.3 H, MPV 6.4 L, Gran % 81.2 H, Lymphocytes % 8.0 L, Monocytes % 9.8 H, Eosinophils % 0.9, Basophils % 0.1, Absolute Granulocytes 5.6, Absolute Lymphocytes 0.5 L, Absolute Monocytes 0.7 H, Absolute Eosinophils 0.1, Absolute Basophils 0 Microbiology 12/24 1202 URINE ROUT: Urine Culture - RES GRAM NEGATIVE RODS 12/24 050 BLOOD: Blood Culture - RECD 12/25 439 BLOOD: Blood Culture - RECD Microbiology 12/24 1202 URINE ROUT: Urine Culture - RES GRAM NEGATIVE RODS 12/24 050 BLOOD: Blood Culture - RECD 12/25 439 BLOOD: Blood Culture - RECD Vital Signs Date Time Temp Pulse Resp B/P B/P Pulse O2 O2 Flow FiO2 Mean Ox Delivery Rate 12/25 0852 88 126/78 12/25 0851 88 126/78 12/25 0851 88 126/78 12/25 0800 Nasal 2.0L Cannula 12/25 0643 98.3 87 20 112/66 92 12/25 0000 96 Nasal 2.0L Cannula 12/24 2045 98.9 82 20 118/72 96 Nasal 2.0L Cannula 12/24 1600 Nasal 2.0L Cannula 12/24 1456 97.9 87 18 117/66 100 Nasal Cannula 12/24 0957 80 118/80
[2017-12-25 15:30] VITALS: BP 115/70
[2017-12-25 23:01] VITALS: BP 116/68
[2017-12-26 06:47] VITALS: BP 90/62
--- NOTE | 2017-12-26 08:12 | PN- Housestaff ---
Subjective Follow-up For: BLOOD LOSS ANEMAIA, RIGHT FEMUR FRACTURE Review of Systems Constitutional: Reports: see HPI. Objective Last 24 Hrs of Vital Signs/I&O Vital Signs Date Time Temp Pulse Resp B/P B/P Pulse O2 O2 Flow FiO2 Mean Ox Delivery Rate 12/26 1600 Nasal 2.0L Cannula 12/26 1410 98.1 78 20 100/62 100 Nasal 2.0L Cannula 12/26 0950 Nasal 2.0L Cannula 12/26 0828 75 90/58 12/26 0826 75 90/58 12/26 0825 75 90/58 12/26 0800 98 Nasal 2.0L Cannula 12/26 0647 98.7 79 20 90/62 98 Nasal 2.0L Cannula 12/26 0000 96 Nasal 2.0L Cannula 12/25 2301 98.4 69 19 116/68 97 Nasal Cannula Intake & Output 12/26 1600 12/26 0800 12/26 0000 Intake Total 1020 600 360 Output Total 250 300 650 Balance 770 300 -290 Intake, IV 0 Intake, Oral 1020 600 360 Number 1 Bowel Movements Output, Stool 0 Output, Urine 250 300 650 Patient 230 lb Weight Physical Exam General Appearance: Alert, Oriented X3, Cooperative, No Acute Distress Cardiovascular: Normal S1, Normal S2 Lungs: Clear to Auscultation, Normal Air Movement Abdomen: Normal Bowel Sounds, Soft, No Tenderness Extremities: No Clubbing, No Cyanosis, No Edema, Normal Pulses, No Tenderness/ Swelling Assessment/Plan Assessment: 67-year-old male (post seizure, post intubation), shifted from ICU with past medical history of seizures, 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 Problems list: -Right femur neck fracture with a hematoma and anemia -Resolved recurrent persistent seizure -Resolved fever completed 5 days antibiotic course -Resolved sinus tachycardia -Fluid overload -Leukocytosis/temperature spike Plan: -Acute H&H drop: Reduce Packed RBC arranged, blood transfusion done today yesterday. We will follow H&H. today H&H is 7.6 -Please transfuse blood if HB fall below 7 after cross match Inputoutput monitoring Vitals monitors -Patient having recent hematoma -He recommended no intervention-now -Will be observed -Patient blood pressure was low today -Lasix on hold, will restart tomorrow if the blood pressure was normal *Leukocytosis/temperature spike: -Last night the patient having temperature spike of 100F - urine culture grew gram-negative jaspreet -Unasyn 1000 mg IV for 3 discontinued -Blood culture negative for day 1, secondary culture is pending Fluid overload: *Patient bilateral pedal edema subsided but still there is scrotal swelling *Strict input output monitoring *Weight monitoring daily *Right femur neck fracture: -Orthopedic consult appreciated *Bandage changed *Orthopedic blood thinner, further recommend *Surgery recommendation appreciated *Orthopedic surgery recommended to hold blood thinner -We will wait till H&H stable -If H&H stable tomorrow we will follow the patient after 6 weeks at outpatient basis or up to rehab Resolved recurrent persistent seizure: -Seizures medication is continued, he having no more seizures. Hypothyroidism: Patient medication for hypothyroidism is continued. Tablet levothyroxine 2.5 mg daily Hypertension: Patient antihypertensive medication amlodipine 2.5 mg daily is continued. Tablets aspirin 80 mg daily. *Anticipated discharge tomorrow Problem List: 1. BPH 2. Hemiparesis 3. Full code status 4. Weakness 5. Fall at home 6. Right femoral fracture 7. Blood loss anemia Pain Ratin Pain Location: back Pain Goal: Remain pain free Pain Plan: pain management pathway Tomorrow's Labs & Rationales: cbc
--- NOTE | 2017-12-26 08:19 | Patient Discharge Instructions ---
Discharge Instructions General Discharge Information Special Instructions: - Please discuss restarting warfarin with your PCP. Your INR should be between 3 -4 while on warfarin. - Please follow up with your orthpedician Dr. Jacobs within 1-2 weeks of discharge. - Please follow up with your primary care physician within 1-2 weeks of discharge. Inform your primary care physician of this admission to [facility]. - Continue your current medications per discharge instructions. - Please watch for these problems: Fever, Chills, Nausea, Vomiting, Shortness of Breath, Productive Cough, Chest Pain/Discomfort, Abdominal Pain, Active Bleeding or Bloody urine/stool. Acute Coronary Syndrome Inclusion Criteria At DC or during hospital stay patient has or had the following: ACS DIAGNOSIS No Discharge Core Measures Meds if any: Prescribed or Continued at Discharge Meds if any: NOT Prescribed or Continued at Discharge Congestive Heart Failure Inclusion Criteria At DC or during hospital stay patient has or had the following: CHF DIAGNOSIS No Discharge Core Measures Meds if any: Prescribed or Continued at Discharge Meds if any: NOT Prescribed or Continued at Discharge Cerebrovascular accident Inclusion Criteria At DC or during hospital stay patient has or had the following: CVA/TIA Diagnosis Yes Discharge Core Measures Meds if any: Prescribed or Continued at Discharge Meds if any: NOT Prescribed or Continued at Discharge Venous thromboembolism Inclusion Criteria VTE Diagnosis No VTE Type NONE VTE Confirmed by (Test) NONE Discharge Core Measures - Per Current guidelines, there needs to be overlap - treatment for the first 5 days of Warfarin therapy. - If discharged on Warfarin prior to 5 days of - overlap therapy, the patient will need to be - assessed for post discharge needs including - *Post discharge parental anticoagulation - *Warfarin and/or parental anticoagulation education - *Follow up date to check INR post discharge At least 5 days overlap therapy as Inpatient No Meds if any: Prescribed or Continued at Discharge Note: Overlap Therapy is Warfarin and Anticoagulant Meds if any: NOT Prescribed or Continued at Discharge
[2017-12-26] MEDS ORDERED: DIVALPROEX SOD250 M2 PO (08:24)
[2017-12-26] MEDS ORDERED: KEPPRA500 M1 PO (08:24)
[2017-12-26 08:48] LABS: ABSOLUTE BASOPHIL COUNT 0 /CUMM (0.0-0.2); ABSOLUTE EOSINOPHIL COUNT 0.1 /CUMM (0.0-0.7); ABSOLUTE GRANULOCYTE CT 3.5 /CUMM (1.4-6.5); ABSOLUTE LYMPH COUNT 0.7 /CUMM (1.2-3.4); ABSOLUTE MONOCYTE COUNT 0.8 /CUMM (0.10-0.60); BASOPHIL % 0.5 % (0.0-2.0); EOSINOPHIL % 1.3 % (0-5); GRANULOCYTE % 68.2 % (42.2-75.2); HEMATOCRIT 22.4 % (42-52); MEAN CORPUSCULAR HGB 31.3 PG (27.0-31.0); MEAN CORPUSCULAR HGB CONC 33.5 G/DL (33.0-37.0); MEAN CORPUSCULAR VOLUME 93.3 FL (80.0-94.0); MEAN PLATELET VOLUME 6.5 FL (7.4-10.4); PLATELET COUNT 135 /CUMM (130-400); RBC DISTRIBUTION WIDTH 15.5 % (11.5-14.5); WHITE BLOOD CELL COUNT 5.1 /CUMM (4.8-10.8)
[2017-12-26 14:10] VITALS: BP 100/62
--- NOTE | 2017-12-26 16:26 | PN- Att Addend ---
Attending Addendum Attending Brief Note No new complaints Vital signs are stable no fever. No major changes on physical. H&H about the same. If stable in a.m. we will start disposition plans for the patient to go back to the group home Intake & Output 12/26 1600 12/26 0400 12/25 1600 12/25 0400 12/24 1600 12/24 0400 Intake Total 1620 351 752 8914 450 Output Total 832 500 5561 1050 1500 400 Balance 1070 -290 -1330 -1050 -290 50 Intake, IV 0 10 Intake, Oral 1620 130 086 3792 450 Number 1 3 2 1 Bowel Movements Output, Stool 0 Output, Urine 214 481 6820 1050 1500 400 Patient 230 lb Weight Current Medications Sig/Miladis Start time Last Medication Dose Route Stop Time Status Admin Acetaminophen 1,000 MG Q6P PRN 12/11 1100 AC 12/21 N/A 1 UNIT IV 0522 Acetaminophen 500 MG BID PRN 12/07 1415 AC 12/26 PO 0851 Amlodipine Besylate 2.5 MG DAILY 12/08 899 AC 12/25 PO 0851 Artificial Tears 2 GTT 4 TIMES/DAY 12/03 899 AC 12/26 OPH 0830 Aspirin Buffered 81 MG DAILY 12/08 09 AC 12/26 PO 0829 Atorvastatin Calcium 10 MG 1700 12/07 1700 AC 12/25 PO 1720 Ceftriaxone Sodium 1,000 MG DAILY 12/25 1200 AC 12/26 IV 12/28 0200 0829 Divalproex Sodium 750 MG BID 12/08 899 AC 12/26 PO 0828 Docusate Sodium 100 MG BID 12/07 2100 AC 12/26 PO 0827 Erythromycin 1 EVERETT 4 TIMES/DAY 12/04 899 AC 12/26 OPH 0829 Escitalopram Oxalate 20 MG DAILY 12/08 899 AC 12/26 PO 0827 Famotidine 20 MG DAILY 12/08 899 AC 12/26 PO 0829 Furosemide 40 MG BID 12/17 2146 DC 12/25 IV 2133 Lactulose 20 GM BID 12/03 2099 AC 12/26 PO 0829 Levetiracetam 1,000 MG BID 12/17 2100 AC 12/26 PO 0827 Levothyroxine Sodium 0.125 MG DAILY AC 12/08 07 AC 12/26 PO 0522 Linaclotide 290 MCG DAILY 12/02 1515 AC 12/26 PO 0828 Lisinopril 5 MG DAILY 12/08 899 AC 12/25 PO 0851 Magnesium Hydroxide 30 ML AT BEDTIME PRN 12/03 1815 AC PO Melatonin 3 MG QPM 12/07 2100 AC 12/25 PO 2131 Ondansetron HCl 4 MG Q6P PRN 12/04 1100 AC 12/04 IV 1057 Oxycodone HCl 5 MG Q6P PRN 12/23 09 AC 12/26 PO 0522 Senna 187 MG AT BEDTIME 12/02 2100 AC 12/25 PO 2130 Tamsulosin HCl 0.8 MG DAILY 12/08 899 AC 12/26 PO 0828 Laboratory Tests 12/26/17 0642: CBC w Diff NO MAN DIFF REQ, RBC 2.40 L, MCV 93.3, MCH 31.3 H, MCHC 33.5, RDW 15.5 H, MPV 6.5 L, Gran % 68.2, Lymphocytes % 13.9 L, Monocytes % 16.1 H, Eosinophils % 1.3, Basophils % 0.5, Absolute Granulocytes 3.5, Absolute Lymphocytes 0.7 L, Absolute Monocytes 0.8 H, Absolute Eosinophils 0.1, Absolute Basophils 0 12/25/17 0710: Anion Gap 2 L, Estimated GFR > 60, BUN/Creatinine Ratio 30.0 H, CBC w Diff NO MAN DIFF REQ, RBC 2.41 L, MCV 93.0, MCH 31.3 H, MCHC 33.7, RDW 15.3 H, MPV 6.9 L, Gran % 81.4 H, Lymphocytes % 8.8 L, Monocytes % 8.9, Eosinophils % 0.9 , Basophils % 0, Absolute Granulocytes 5.6, Absolute Lymphocytes 0.6 L, Absolute Monocytes 0.6, Absolute Eosinophils 0.1, Absolute Basophils 0 12/24/17 1102: Urine Color STRAW, Urine Clarity HAZY H, Urine pH 6.5, Ur Specific [place] 1.015, Urine Protein NEG, Urine Ketones NEG, Urine Nitrite POS H, Urine Bilirubin NEG, Urine Urobilinogen 1.0, Ur Leukocyte Esterase MOD H, Ur Microscopic SEDIMENT EXAMINED, Urine RBC RARE, Urine WBC 25-50 H, Ur Epithelial Cells RARE, Urine Bacteria MANY H, Urine Hemoglobin TRACE-INTACT H, Urine Glucose NEG 12/24/17 0647: CBC w Diff NO MAN DIFF REQ, RBC 2.65 L, MCV 93.0, MCH 31.0, MCHC 33.4, RDW 15.1 H, MPV 6.3 L, Gran % 87.7 H, Lymphocytes % 4.9 L, Monocytes % 7.1, Eosinophils % 0.2, Basophils % 0.1, Absolute Granulocytes 10.7 H, Absolute Lymphocytes 0.6 L, Absolute Monocytes 0.9 H, Absolute Eosinophils 0, Absolute Basophils 0 Microbiology 12/24 1202 URINE ROUT: Urine Culture - COMP ENTEROBACTER CLOACAE 12/24 499 BLOOD: Blood Culture - RES 12/25 439 BLOOD: Blood Culture - RES Microbiology 12/24 1202 URINE ROUT: Urine Culture - COMP ENTEROBACTER CLOACAE 12/24 499 BLOOD: Blood Culture - RES 12/25 439 BLOOD: Blood Culture - RES Vital Signs Date Time Temp Pulse Resp B/P B/P Pulse O2 O2 Flow FiO2 Mean Ox Delivery Rate 12/26 1410 98.1 78 20 100/62 100 Nasal 2.0L Cannula 12/26 0950 Nasal 2.0L Cannula 12/26 0828 75 90/58 12/26 0826 75 90/58 12/26 0825 75 90/58 12/26 0800 98 Nasal 2.0L Cannula 12/26 0647 98.7 79 20 90/62 98 Nasal 2.0L Cannula 12/26 0000 96 Nasal 2.0L Cannula 12/25 2301 98.4 69 19 116/68 97 Nasal Cannula
[2017-12-26 22:32] VITALS: BP 98/60
[2017-12-27 06:00] VITALS: BP 120/68
--- NOTE | 2017-12-27 06:45 | PN- Housestaff ---
Subjective Follow-up For: Seizure, dropping H&H, right femur fracture Subjective: Patient seen and examined at bedside. He is complaining of mild backache. He denies fever, chills, chest pain, palpitation, abdominal pain, diarrhea, constipation, burning micturition. Review of Systems Constitutional: Reports: see HPI. Objective Last 24 Hrs of Vital Signs/I&O Vital Signs Date Time Temp Pulse Resp B/P B/P Pulse O2 O2 Flow FiO2 Mean Ox Delivery Rate 12/27 0849 68 108/70 12/27 0848 68 108/70 12/27 0848 68 108/70 12/27 599 98.4 80 20 120/68 97 / 0000 Nasal 2.0L Cannula 12/26 2232 99.2 78 20 98/60 96 Nasal Cannula 12/26 1600 Nasal 2.0L Cannula 12/26 1410 98.1 78 20 100/62 100 Nasal 2.0L Cannula Intake & Output 12/27 1600 12/27 0800 09 0000 Intake Total 240 720 Output Total 450 300 Balance -210 420 Intake, Oral 240 720 Number 2 Bowel Movements Output, Urine 450 300 Physical Exam General Appearance: Alert, Oriented X3, Cooperative, No Acute Distress Cardiovascular: Normal S1, Normal S2 Lungs: Clear to Auscultation, Normal Air Movement Abdomen: Normal Bowel Sounds, Soft, No Tenderness, No Hepatospenomegaly, No Masses Assessment/Plan Assessment: 67-year-old male (post seizure, post intubation), shifted from ICU with past medical history of seizures, 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 Problems list: -Right femur neck fracture with a hematoma and anemia -Resolved recurrent persistent seizure -Resolved fever completed 5 days antibiotic course -Resolved sinus tachycardia -Fluid overload -Leukocytosis/temperature spike Plan: -Acute H&H drop: Reduce Packed RBC arranged, blood transfusion done today yesterday. We will follow H&H. today H&H is 8.4 -Please transfuse blood if HB fall below 7 after cross match Inputoutput monitoring Vitals monitors -Patient having recent hematoma -He recommended no intervention-now -Will be observed -Patient blood pressure was low today -Patient will discharge STR today *Will follow up CBCs on Sunday STR *Leukocytosis/temperature spike: -Last night the patient having temperature spike of 100F - urine culture grew gram-negative jaspreet -Unasyn 1000 mg IV for 3 discontinued -Blood culture negative for day 1, secondary culture is pending Fluid overload: *Patient bilateral pedal edema subsided but still there is scrotal swelling *Strict input output monitoring *Weight monitoring daily *Right femur neck fracture: -Orthopedic consult appreciated *Bandage changed *Orthopedic blood thinner, further recommend *Surgery recommendation appreciated *Orthopedic surgery recommended to hold blood thinner -We will wait till H&H stable -If H&H stable tomorrow we will follow the patient after 6 weeks at outpatient basis or up to rehab *The surgery cassy will removed today Resolved recurrent persistent seizure: -Seizures medication is continued, he having no more seizures. Hypothyroidism: Patient medication for hypothyroidism is continued. Tablet levothyroxine 2.5 mg daily Hypertension: Patient antihypertensive medication amlodipine 2.5 mg daily is continued. Tablets aspirin 80 mg daily. *Anticipated discharge tomorrow Problem List: 1. BPH 2. Full code status 3. Seizure 4. Right femoral fracture 5. Fracture, femur 6. Blood loss anemia 7. Fall at home Pain Ratin Pain Location: Back Pain Goal: Remain pain free Pain Plan: Pain management pathway Tomorrow's Labs & Rationales: RODGER
--- NOTE | 2017-12-27 08:21 | Discharge Summary ---
Visit Information Visit Dates Admission Date: 11/28/17 Discharge Date: 12/27/2017 Hospital Course Course Attending Physician: Vasile Frausto MD Primary Care Physician: Vasile Frausto MD Hospital Course: Mr. 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 The patient presented to [facility] with complaint of tonic-clonic seizures and unresponsivenes. He was diagnosed with seizures in 2013 and has been compliant with his medication KEPPRA 500 twice a day. He does not remember if he took the medication on the day of admission. However he reports being compliant with his medication in general. She also denies any recent changes to his medications. His medication list was confirmed with [facility], last time he had a refill for all his meds including Keppra and warfarin was on 11/16/17 from [facility]. Admitted to ICU on presentation and later transferred to general medicine for following managements [place] seizures Patient was noncompliant with keppra prior to admission. He was loaded with keppra and added depakote as continued to have seizures, got intubated and received propofol infusion. As the initial EEG demonstrated temporal lobe activity, he was covered for HSV encephalitis with acyclovir, ceftriaxone, metrogly very briefly for 2 days. Unable to evlauate with LP as anticoagulated. He became bradyacardic due to which propofol was discontinued. Repeat EEG on 12/03/17 is negative for seizure activity after which he got extubated. He was continued on IV keppra 1gm BID, valproic acid 750mg BID which were transitioned to oral keppra and depakote after swallow eval. Patient remained on this regimen without further seizure activities noticed on floor. Right hip femoral neck fracture Patient reported pain and difficulty with moving right hip. hip X ray did show neck deformity but unable to pursue CT as unstable to go at presentation. on 12/07/27 CT of hip did show laterally displaced femoral neck fracture 1.5cm. Orthopedic consult was on board and after discussion with family , patient was sent to OR for right uncemented hemiarthroplasty. Patient's Post- op days was complicatd by a hematoma on 12/19 with acute drop on H/H, s/p 2U PRBC transfusion and stablized. Continue to work with PT until reaching baseline ambulation ability at [facility]. Aspiration pneumonia Afebrile on admission WBC was 14.1, bands 2, segmented neutrophils 87. spiked fevers on 2nd day of admission. LRC and blood culture were negative. Chest x-ray :Hypoexpanded lungs with bronchovascular crowding. No dense consolidation. completed 5 day course of ceftriaxone. UTI Patient spiked a fever on 12/24/2017 Tmax 102.4, started on ceftriaxone, and urine culture later growing enterobacter, and switched to cipro for a total of 5 days treatment. Erythema of left eye Patient had signficant erythema of left eye conjunctiva, for few days while intubated. Artificial tear drops and prednisone drops improved. History of DVT on Coumadin As per discussion with his sister, the patient has history of DVT which resulted in a stroke through what his sister think is patent foramen ovale. 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 Due to drug interaction his INR remained supratherapeutic for few days. Due to OR event, and patient's subsequent hematoma development, patient's warfarin was held prior discharge and will resume per PCP eval. Indirect Hyperbilirubinemia/ most likely Gilbert syndrome On admission his bilirubin was 2.4, LFTs normal. Reviewing the patient's chart showed that he had similar episodes during previous admissions. Note from Dr. West back in 2013 suggested that the patient might have Gilbert disease. Currently the patient is n.p.o. which might have triggered this hyperbilirubinemia. Constipation Patient had history of constipation and seems to be on multiple medications at home. He did not had a BM for 10 days after admission. We will continue his home regimen as started on diet. LALO - resolved Cr 1.3 at presentation, got worse with dehydration to 1.6. Improved with hydration and remained stable around 0.7 for rest of hospital course. Chronic medical conditions Restarted home medications - 12/07/17 after passing swallow eval. BPH - started on tamsulosin Hypothyroidism - started on levothyroxine constipation - started on senna, docusate Mental health - started on escitalopram, holding zolpidem (can restart as needed ) HTN - started on amlodipine 2.5mg daily and lisinopril 5mg daily. HLD - on simvastatin at home, started on atorvastatin in hospital. Mechanical vent: Intubated from 11/30/17 to 12/04/17 NIPPV: None Antibiotics: completed a course of ceftriaxone for aspiration pneumonia Catheters/Lines - gutierrez removed on 12/05/17, peripheral IV. Never had central line placed. Nutrition Passed swallow eval in ICU on 12/05 and started on regular diet w/ mechanical soft and thin consistency DVT prophylaxis SC heparin now - needs lovenox or warfarin depending on surgical decision. Code status Full code Complications: none Allergies: Coded Allergies: Iodinated Contrast- Oral and IV Dye (UNKNOWN PER PT 08/05/17) Penicillins (UNKNOWN PER PT 08/05/17) bacitracin (PER PT EYE OINTMENT -DOES NOT REMEMBER REACTION 05/05/17) Pertinent Lab Results: SERVICE DATE: 11/28/17 EXAM TYPE: CAT - CT CERV SPINE WO IV CONTRAST; CT HEAD WO IV CONTRAST IMPRESSION: CT head: No acute intracranial abnormality. Chronic large right MCA infarction with additional smaller chronic infarction in the left lateral cerebellum. CT cervical spine: No cervical spine fracture or malalignment. Advanced multilevel degenerative spondylotic changes without high-grade spinal canal stenosis. SERVICE DATE: 11/28/17-2050 EXAM TYPE: RAD - XRY-PORTABLE CHEST XRAY IMPRESSION: Poorly expanded lungs. No acute intrathoracic disease. SERVICE DATE: 11/29/17 EXAM TYPE: RAD - XRY-PORTABLE CHEST XRAY IMPRESSION: Hypoexpanded lungs with bronchovascular crowding. No dense consolidation. SERVICE DATE: 11/29/17 EXAM TYPE: RAD - XRY-HIP 2-3 VIEWS, RIGHT IMPRESSION: Deformity in the region of the neck of the right femur, seen only on the frontal projection. The lateral radiograph is technically limited. Follow-up noncontrast CT of the right hip may be considered for further clarification. SERVICE DATE: 11/30/17- EXAM TYPE: RAD - XRY-PORTABLE CHEST XRAY IMPRESSION: 1. Unchanged appearance of the chest with low lung volumes and left basilar subsegmental atelectasis again seen. 2. No evolving pneumonia. SERVICE DATE: 11/30/17 EXAM TYPE: RAD - XRY-PORTABLE CHEST XRAY IMPRESSION: 1. Endotracheal tube terminating 4.7 cm superior to the brennen. 2. Enteric tube terminating within the stomach. 3. Low lung volumes. SERVICE DATE: 12/01/17 EXAM TYPE: RAD - XRY-PORTABLE CHEST XRAY IMPRESSION: 1. ET tube tip 3.5 cm above brennen. 2. NG tube poorly visualized against background density, likely below diaphragm. 3. Low lung volumes. Lungs grossly clear. SERVICE DATE: 12/02/17 EXAM TYPE: RAD - XRY-PORTABLE CHEST XRAY IMPRESSION: 1. Endotracheal tube tip 4.6 cm above the brennen. 2. Enteric tube tip projects in region of the gastric body/antrum. 3. Low lung volumes with bibasilar subsegmental atelectasis. SERVICE DATE: 12/03/17 EXAM TYPE: RAD - XRY-PORTABLE CHEST XRAY IMPRESSION: ET tube 4.2 cm above the brennen. Limited visualization of the enteric tube. SERVICE DATE: 12/04/17 EXAM TYPE: RAD - XRY-PORTABLE CHEST XRAY IMPRESSION: Endotracheal tube tip 4.7 cm above the brennen. The enteric tube tip is not seen due to underpenetration of the film. The cardiomediastinal silhouette is stable and likely artifactually enlarged. SERVICE DATE: 12/04/17 EXAM TYPE: CARD - ECHOCARDIOGRAM CONCLUSIONS Dextrocardia. LV appears normal in size and function. LVEF estimated at 60%. Grade 1 diastolic dysfunction. RV appears normal in size and function. LA is normal in size. Interatrial septum is intact. Tricuspid aortic valve without sclerosis or stenosis. Trace tricuspid regurgitation. Normal pericardium without effusion. Magan Roman M.D. (Electronically Signed) Final Date: 05 December 2017 14:48 SERVICE DATE: 12/06/17- EXAM TYPE: CAT - CT LOWER EXT WO IV CONTRAST IMPRESSION: Slightly displaced femoral neck fracture which appears to be subacute or chronic with no osseous bridging. SERVICE DATE: 12/07/17- EXAM TYPE: RAD - XRY-MODIFIED BARIUM SWALLOW IMPRESSION: Unremarkable examination. Speech pathologist assessment issued separately. SERVICE DATE: 12/10/17- EXAM TYPE: CAT - CT ABD & PELVIS W/O IV CONTRAS IMPRESSION: - Redemonstration of mildly displaced fracture of the right femoral neck. - New intramuscular hematoma involving the anterior thigh compartment and iliacus muscles with mild retroperitoneal stranding also seen without discrete retroperitoneal hematoma - No acute abnormality in the abdomen. SERVICE DATE: 12/11/17-2099 EXAM TYPE: RAD - XRY-HIP 1 VIEW, RIGHT IMPRESSION: 1. Triplex ultrasound evaluation of the left upper extremity does not demonstrate evidence of deep vein thrombosis. 2. There are no focal fluid collections. SERVICE DATE: 12/19/17-1600 EXAM TYPE: CAT - CT ABD & PELVIS W/O IV CONTRAS IMPRESSION: - There are redemonstrated postoperative changes following right hip arthroplasty. While the intramuscular hematoma previously seen within the right iliopsoas muscle/anterior thigh compartment has improved, there is new partially imaged large volume hematoma that is in part intramuscular located superior, posterior, and medial to the hip arthroplasty best seen on image 86 through 112 of series 2. This large hematoma is obscured by artifact from the surgical hardware, measuring at least 12 cm in maximal transverse diameter. - No additional hematomas. Additional stable chronic findings as described. The covering provider has been paged with these findings at 4:44 PM on 12/19/2017. SERVICE DATE: 12/24/17- EXAM TYPE: RAD - XRY-PORTABLE CHEST XRAY IMPRESSION: Low lung volumes. Minimal atelectasis is present at the left lung base. No significant change. Chronic elevation of the left hemidiaphragm. Disposition Summary Disposition Principal Diagnosis: #Breakthrough seizure #Right hip femoral neck fracture s/p hemiplasty, c/b femoral hematoma #Aspiration PNA, resolved #UTI w/ enterobacter, Resolving #Erythema of left eye, resolved #History of DVT on Coumadin, off Coumadin 2/2 hematoma #Indirect Hyperbilirubinemia 2/2 Gilbert syndrome #Constipation #LALO 2/2 dehydration, resolved #PMH of BPH, hypothyroidism, HTN, HLD Additional Diagnosis: as above Discharge Disposition: SNF Discharge Instructions General Discharge Information Code Status: Full Code Patient's Diet: mechanical soft/thin liquid Patient's Activity: as tolerated Follow-Up Instructions/Appts: - Please monitor your INR while taking warfarin and depakote. Your INR target will be 3-4 until being seen by your orthopedician. - Please follow up with your orthpedician Dr. Jacobs within 1-2 weeks of discharge. - Please follow up with your primary care physician within 1-2 weeks of discharge. Inform your primary care physician of this admission to [facility]. - Continue your current medications per discharge instructions. - Please watch for these problems: Fever, Chills, Nausea, Vomiting, Shortness of Breath, Productive Cough, Chest Pain/Discomfort, Abdominal Pain, Active Bleeding or Bloody urine/stool. Medications at Discharge Discharge Medications: Stop taking the following medications: Warfarin Sodium (Coumadin) 7.5 MG TABLET ORAL 5 PM Continue taking these medications: Tamsulosin HCl (Flomax) 0.4 MG CAP.ER.24H 2 Capsule ORAL DAILY Comments: Last Taken: 11/09/17 Time: 09:07 AM Simvastatin (Zocor*) 20 MG TABLET 1 Tablet ORAL Every night Comments: NOT GIVEN IN HOSPITAL Amlodipine (Norvasc) 2.5 MG TABLET 1 Tablet ORAL DAILY Comments: Last Taken: 11/09/17 Time: 09:07 AM Famotidine (Famotidine) 20 MG TABLET 1 Tablet ORAL DAILY Comments: Last Taken: 11/09/17 Time: 09:07 AM Levothyroxine Sodium (Levothyroxine Sodium) 125 MCG TABLET 1 Tablet ORAL DAILY BEFORE BREAKFAST Comments: Last Taken: 08/11/17 Time: 6:00 am Lisinopril (Prinivil) 5 MG TABLET 1 Tablet ORAL DAILY Comments: Last Taken: 11/09/17 Time: 09:07 AM Escitalopram Oxalate (Lexapro) 20 MG TABLET 1 Tablet ORAL DAILY Comments: Last Taken: 11/09/17 Time: 09:07 AM Linaclotide (Linzess) 290 MCG CAPSULE 1 Capsule ORAL DAILY Qty = 30 Comments: Last Taken: 11/09/17 Time: 09:07 AM Multiple Vitamin (Multivitamins) 1 EACH TABLET 1 Tablet ORAL DAILY Comments: Last Taken: 11/09/17 Time: 09:07 AM Melatonin (Melatonin) 3 MG TABLET 1 Tablet ORAL Every night Comments: Last Taken: 11/08/17 Time: 20:39 PM Zolpidem Tartrate (Zolpidem Tartrate) 5 MG TABLET 1 Tablet ORAL Every night Qty = 7 Sennosides (Senna) 8.6 MG TABLET 2 Tablet ORAL TWICE DAILY Comments: Last Taken: 11/08/17 Time: 20:39 PM Aspirin (Ecotrin*) 81 MG TABLET.DR 1 Tablet ORAL DAILY Qty = 30 Comments: Last Taken: 11/09/17 Time: 09:07 AM Acetaminophen (Tylenol Extra Strength) 500 MG TABLET 1 Tablet ORAL TWICE DAILY as needed for Knee pain/fracture Qty = 14 Comments: Last Taken: 11/08/17 Time: 20:40 PM Plecanatide (Trulance) 3 MG TABLET 1 Tablet ORAL DAILY Lactulose (Generlac) 10 GRAM/15 ML SOLUTION 10 Gram ORAL Every Day as needed for CONSTIPATION Qty = 946 Start taking the following new medications: Ciprofloxacin HCl (Ciprofloxacin HCl) 500 MG TABLET 1 Tablet ORAL TWICE DAILY Qty = 4 No Refills Divalproex Sodium (Divalproex Sodium) 250 MG TABLET.DR 750 Milligram ORAL TWICE DAILY Qty = 180 No Refills Levetiracetam (Keppra) 500 MG TABLET 1,000 Milligram ORAL TWICE DAILY Qty = 30 No Refills Copies To: Edvin REEVES,Edy Muniz
[2017-12-27] MEDS ORDERED: CIPROFLOXACIN500 M2 PO ×2 (08:24→14:05)
[2017-12-27 08:43] LABS: ABSOLUTE BASOPHIL COUNT 0 /CUMM (0.0-0.2); ABSOLUTE EOSINOPHIL COUNT 0.1 /CUMM (0.0-0.7); ABSOLUTE GRANULOCYTE CT 3.3 /CUMM (1.4-6.5); ABSOLUTE LYMPH COUNT 0.5 /CUMM (1.2-3.4); ABSOLUTE MONOCYTE COUNT 0.6 /CUMM (0.10-0.60); BASOPHIL % 0.4 % (0.0-2.0); EOSINOPHIL % 2.6 % (0-5); GRANULOCYTE % 73.7 % (42.2-75.2); HEMATOCRIT 24.9 % (42-52); MEAN CORPUSCULAR HGB CONC 33.5 G/DL (33.0-37.0); MEAN CORPUSCULAR VOLUME 92.3 FL (80.0-94.0); MEAN PLATELET VOLUME 6.4 FL (7.4-10.4); PLATELET COUNT 125 /CUMM (130-400); RBC DISTRIBUTION WIDTH 14.8 % (11.5-14.5); WHITE BLOOD CELL COUNT 4.5 /CUMM (4.8-10.8)
--- NOTE | 2017-12-27 13:06 | PN- Att Addend ---
Attending Addendum Attending Brief Note No new issues Vital signs are stable no fever. No changes in physical examination. H&H is stable. Disposition plans were started patient leaving today to the long term, I would follow him over there. Intake & Output 12/27 1600 12/27 0400 12/26 1600 12/26 0400 12/25 1600 12/25 0400 Intake Total 049 481 1114 360 820 Output Total 450 300 397 506 1334 1050 Balance -441 553 4086 -290 -1330 -1050 Intake, IV 0 Intake, Oral 947 736 2784 360 820 Number 2 1 3 2 Bowel Movements Output, Stool 0 Output, Urine 450 300 856 299 9463 1050 Patient 230 lb Weight Current Medications Sig/Miladis Start time Last Medication Dose Route Stop Time Status Admin Acetaminophen 1,000 MG Q6P PRN 12/11 1100 AC 12/21 N/A 1 UNIT IV 0522 Acetaminophen 500 MG BID PRN 12/07 1415 DC 12/26 PO 1917 Amlodipine Besylate 2.5 MG DAILY 12/08 899 AC 12/27 PO 0948 Artificial Tears 2 GTT 4 TIMES/DAY 12/03 899 AC 12/27 OPH 1216 Aspirin Buffered 81 MG DAILY 12/08 899 AC 12/27 PO 0949 Atorvastatin Calcium 10 MG 1700 12/07 1700 AC 12/26 PO 1705 Ceftriaxone Sodium 1,000 MG DAILY 12/25 1200 DC 12/26 IV 12/28 0200 0829 Ciprofloxacin 500 MG BID 12/27 09 AC 12/27 PO 12/29 2101 1010 Divalproex Sodium 750 MG BID 12/08 09 AC 12/27 PO 0948 Docusate Sodium 100 MG BID 12/07 2100 AC 12/26 PO 0827 Erythromycin 1 EVERETT 4 TIMES/DAY 12/04 09 DC 12/26 OPH 2035 Escitalopram Oxalate 20 MG DAILY 12/08 899 AC 12/27 PO 0948 Famotidine 20 MG DAILY 12/08 899 AC 12/27 PO 0948 Lactulose 20 GM BID 12/03 2099 DC 12/26 PO 0829 Levetiracetam 1,000 MG BID 12/17 2100 AC 12/27 PO 0948 Levothyroxine Sodium 0.125 MG DAILY AC 12/08 07 AC 12/27 PO 0611 Linaclotide 290 MCG DAILY 12/02 1515 AC 12/27 PO 0947 Lisinopril 5 MG DAILY 12/08 899 AC 12/27 PO 0948 Magnesium Hydroxide 30 ML AT BEDTIME PRN 12/03 1815 DC PO Melatonin 3 MG QPM 12/07 2100 AC 12/26 PO 2035 Ondansetron HCl 4 MG Q6P PRN 12/04 1100 AC 12/04 IV 1057 Oxycodone HCl 5 MG Q6P PRN 12/23 0900 AC 12/27 PO 0613 Senna 187 MG AT BEDTIME 12/02 2100 AC 12/25 PO 2130 Tamsulosin HCl 0.8 MG DAILY 12/08 899 AC 12/27 PO 0949 Laboratory Tests 12/27/17 0819: Anion Gap 2 L, Estimated GFR > 60, BUN/Creatinine Ratio 30.0 H, CBC w Diff NO MAN DIFF REQ, RBC 2.70 L, MCV 92.3, MCH 31.0, MCHC 33.5, RDW 14.8 H, MPV 6.4 L, Gran % 73.7, Lymphocytes % 10.4 L, Monocytes % 12.9 H, Eosinophils % 2.6, Basophils % 0.4, Absolute Granulocytes 3.3, Absolute Lymphocytes 0.5 L, Absolute Monocytes 0.6, Absolute Eosinophils 0.1, Absolute Basophils 0 12/26/17 0642: CBC w Diff NO MAN DIFF REQ, RBC 2.40 L, MCV 93.3, MCH 31.3 H, MCHC 33.5, RDW 15.5 H, MPV 6.5 L, Gran % 68.2, Lymphocytes % 13.9 L, Monocytes % 16.1 H, Eosinophils % 1.3, Basophils % 0.5, Absolute Granulocytes 3.5, Absolute Lymphocytes 0.7 L, Absolute Monocytes 0.8 H, Absolute Eosinophils 0.1, Absolute Basophils 0 12/25/17 0710: Anion Gap 2 L, Estimated GFR > 60, BUN/Creatinine Ratio 30.0 H, CBC w Diff NO MAN DIFF REQ, RBC 2.41 L, MCV 93.0, MCH 31.3 H, MCHC 33.7, RDW 15.3 H, MPV 6.9 L, Gran % 81.4 H, Lymphocytes % 8.8 L, Monocytes % 8.9, Eosinophils % 0.9 , Basophils % 0, Absolute Granulocytes 5.6, Absolute Lymphocytes 0.6 L, Absolute Monocytes 0.6, Absolute Eosinophils 0.1, Absolute Basophils 0 Vital Signs Date Time Temp Pulse Resp B/P B/P Pulse O2 O2 Flow FiO2 Mean Ox Delivery Rate 12/27 0849 68 108/70 12/28 947 68 10870 12/28 947 68 12/27 0600 98.4 80 20 120/68 97 / 0000 Nasal 2.0L Cannula 12/26 2232 99.2 78 20 98/60 96 Nasal Cannula 12/26 1600 Nasal 2.0L Cannula 12/26 1410 98.1 78 20 100/62 100 Nasal 2.0L Cannula
[2017-12-27 14:12] VITALS: BP 108/70
[2017-12-27 15:12] VITALS: BP 110/70
== END 2017-12-27 16:13 | DRG 981 ==
LOC: ERH 19:06 → ERHI 21:46 → 2NA 21:46 → CRI 21:46 → EDBEDREQ 23:02 → ENRESERV 23:07 → ERHI 23:11 → CRI 11-29 01:28 → 2NA 12-07 13:54 → ENTRNSPT 12-11 21:32 → EDTRNSPT 12-11 21:42 → EDTRNSPTSTS 12-11 21:42 → CMPTRNSPT 12-11 21:58 → 2NA 12-20 07:49 → ENPENDDIS 12-27 14:38 → 2NA 12-27 16:13
PROVIDERS: Emergency Medicine; General Practice; Hospitalist; Internal Medicine; Internal Medicine Endocrinology, Diabetes & Metabolism; Internal Medicine Pulmonary Disease; Physical Medicine & Rehabilitation Pain Medicine; Preventive Medicine Addiction Medicine; Student in an Organized Health Care Education/Training Program
PROC: 5A1945Z Respiratory Ventilation, 24-96 Consecutive Hours (ICD-10-PCS; 2017-11-30)
PROC: 0BH17EZ Insertion of Endotracheal Airway into Trachea, Via Natural or Artificial Opening (ICD-10-PCS; 2017-11-30)
PROC: 30233N1 Transfusion of Nonautologous Red Blood Cells into Peripheral Vein, Percutaneous Approach (ICD-10-PCS; 2017-12-10)
PROC: 0SRR0JA Replacement of Right Hip Joint, Femoral Surface with Synthetic Substitute, Uncemented, Open Approach (ICD-10-PCS; principal; 2017-12-11)
PROC: 3E0T3BZ Introduction of Anesthetic Agent into Peripheral Nerves and Plexi, Percutaneous Approach (ICD-10-PCS; 2017-12-11)
DX: G40.901 Epilepsy, unspecified, not intractable, with status epilepticus (principal); S72.001A Fracture of unspecified part of neck of right femur, initial encounter for closed fracture; J69.0 Pneumonitis due to inhalation of food and vomit; G93.40 Encephalopathy, unspecified; I69.354 Hemiplegia and hemiparesis following cerebral infarction affecting left non-dominant side; E87.2 Acidosis; N17.9 Acute kidney failure, unspecified; D62 Acute posthemorrhagic anemia; N39.0 Urinary tract infection, site not specified; D69.6 Thrombocytopenia, unspecified; E87.70 Fluid overload, unspecified; I73.9 Peripheral vascular disease, unspecified; N40.0 Benign prostatic hyperplasia without lower urinary tract symptoms; E03.9 Hypothyroidism, unspecified; K21.9 Gastro-esophageal reflux disease without esophagitis; F32.9 Major depressive disorder, single episode, unspecified; I10 Essential (primary) hypertension; E78.5 Hyperlipidemia, unspecified; R09.02 Hypoxemia; K59.09 Other constipation; S30.0XXA Contusion of lower back and pelvis, initial encounter; Z91.14 Patient's other noncompliance with medication regimen; Z79.01 Long term (current) use of anticoagulants; I44.0 Atrioventricular block, first degree; R00.1 Bradycardia, unspecified; T41.295A Adverse effect of other general anesthetics, initial encounter; E86.0 Dehydration; I87.2 Venous insufficiency (chronic) (peripheral); E80.4 Gilbert syndrome; B96.89 Other specified bacterial agents as the cause of diseases classified elsewhere; Y92.009 Unspecified place in unspecified non-institutional (private) residence as the place of occurrence of the external cause; W19.XXXA Unspecified fall, initial encounter; Y92.230 Patient room in hospital as the place of occurrence of the external cause; Z86.718 Personal history of other venous thrombosis and embolism; Z88.8 Allergy status to other drugs, medicaments and biological substances; Z90.49 Acquired absence of other specified parts of digestive tract; Z88.0 Allergy status to penicillin; Z87.81 Personal history of (healed) traumatic fracture
CPT/HCPCS: 2NAP; CCU; ERO; 36415; 36592; 71045; 73501; 73502-RT; 74176; 74230; 80307; 81001; 82436; 86920; 87040; 87070; 87086; 88304; 93005; 93010; 93306; 94799; 95816; 96374; 96375; 97162-GP; 97166-GO; 97530-GO; 99291; G0480; J0131; J0360; J0461; J0690; J0696; J1644; J1650; J1940; J1953; J2405; J3490; J7040; J7042; J7060; P9016